=== PATIENT | female | born 1955 | race Caucasian/White ===

== ENCOUNTER 2023-01-27 16:09 | Inpatient (IN) | payer MEDICARE, OTHER, SELFPAY ==
[2023-01-27 16:20] VITALS: BP 136/71; PULSE 89; RESP 16; TEMP 36.9; O2SAT 98; BMI 22.8
--- NOTE | 2023-01-27 16:51 | ED_ITS ---
HPI - Abdominal Pain General Chief Complaint: Abdominal Pain Stated Complaint: Physician Referral Time Seen by Provider: 01/27/23 16:17 Source: patient Mode of arrival: Wheelchair Limitations: no limitations History of Present Illness HPI narrative: 67-year-old female presents for intermittent right lower quadrant abdominal pain. Sometimes it goes to her lower back. She 1st had it about two weeks ago but didn't have a recurrence of the until four days ago. It went away again and then it came back last night. She saw her nurse practitioner today who sent her here with a concern of appendicitis. No dysuria hematuria or trauma or fever. No vomiting constipation or diarrhea but she's been nauseous. The pain is moderate. Related Data Home Medications Medication Instructions Recorded Confirmed carbidopa 25 mg-levodopa 100 mg 1 tab PO .five times a day 01/27/23 01/27/23 tablet Allergies Allergy/AdvReac Type Severity Reaction Status Date / Time No Known Drug Allergies Allergy Verified 01/27/23 16:20 Review of Systems ROS Narrative A ten point review of systems is negative except as noted above. PFSH PFSH Social History Smoking status: Never smoker Exam Narrative Exam Narrative: Nurses note and vital signs reviewed and patient is not hypoxic. General: The patient appears well and in no apparent distress. Patient is resting comfortably on cart. Skin: Warm, dry, no pallor noted. There is no rash noted. Head: Normocephalic, atraumatic Eye: Normal conjunctiva, no drainage Ears, Nose, Mouth, and Throat: oral mucosa is moist. Nares patent. Cardiovascular: Regular Rate and Rhythm Respiratory: Patient is in no distress, no accessory muscle use, lungs are clear to auscultation, no wheezing, rales or rhonchi Back: non-tender, no CVA tenderness bilaterally to percussion. GI: mild tenderness on the right side of her abdomen without masses or distention Musculoskeletal: The patient has no evidence of calf tenderness, no pitting edema, symmetrical pulses noted bilaterally Neurological: A&O, normal speech Psychiatric: Cooperative Constitutional Vital Signs, click to edit/add: Last Vital Signs Temp 98.4 F 01/27/23 16:20 Pulse 89 01/27/23 16:20 Resp 16 01/27/23 16:20 BP 136/71 01/27/23 16:20 Pulse Ox 98 01/27/23 16:20 O2 Del Method Room Air 01/27/23 16:20 Course Vital Signs Vital signs: Vital Signs Temperature 98.4 F 01/27/23 16:20 Pulse Rate 89 01/27/23 16:20 Respiratory Rate 16 01/27/23 16:20 Blood Pressure 136/71 01/27/23 16:20 Pulse Oximetry 98 01/27/23 16:20 Oxygen Delivery Method Room Air 01/27/23 16:20 Temperature 98.4 F 01/27/23 16:20 Pulse Rate 89 01/27/23 16:20 Respiratory Rate 16 01/27/23 16:20 Blood Pressure 136/71 01/27/23 16:20 Pulse Oximetry 98 01/27/23 16:20 Oxygen Delivery Method Room Air 01/27/23 16:20 MDM - Abdominal Pain MDM Narrative Medical decision making narrative: CT scan is pending and the patient is signed out to Dr. Ornelas. Lab Data Attestation: I reviewed the patient's lab results. Labs: Lab Results 01/27/23 Range/Units 17:16 WBC 7.8 (4.0-11.0) 10^3/uL RBC 4.52 (4.20-5.40) 10^6/uL Hgb 13.6 (12.0-16.0) g/dL Hct 40.9 (36.0-48.0) % MCV 90.5 (81.0-99.0) fL MCH 30.1 (26.7-34.0) pg MCHC 33.3 (29.9-35.2) g/dL RDW 12.3 (11.0-15.0) % Plt Count 237 (150-450) 10^3/uL MPV 8.5 L (9.5-13.5) fL Neut % (Auto) 86.7 H (43.0-75.0) % Lymph % (Auto) 6.1 L (20.5-60.0) % [place] % (Auto) 6.1 (1.7-12.0) % Eos % (Auto) 0.4 L (0.9-7.0) % Baso % (Auto) 0.4 (0.2-2.0) % Neut # (Auto) 6.8 H (1.4-6.5) 10^3/uL Lymph # (Auto) 0.5 L (1.2-3.8) 10^3/uL [place] # (Auto) 0.5 (0.3-0.8) 10^3/uL Eos # (Auto) 0.0 (0.0-0.7) 10^3/uL Baso # (Auto) 0.0 (0.0-0.1) 10^3/uL Abs Immat Gran (auto) 0.02 (0.00-0.03) 10^3/uL Imm/Tot Granulo (auto) 0.3 (0.0-0.5) % Sodium 138 (136-145) mmol/L Potassium 4.1 (3.5-5.1) mmol/L Chloride 101 (98-107) mmol/L Carbon Dioxide 27.6 (21.0-32.0) mmol/L Anion Gap 13.5 BUN 20.0 H (7.0-18.0) mg/dL Creatinine 1.13 H (0.55-1.02) mg/dL Est GFR ( Amer) 58 L (>=60) Est GFR (Non-Af Amer) 48 L (>=60) BUN/Creatinine Ratio 17.7 Glucose 121 H (74-106) mg/dL Calcium 9.3 (8.5-10.1) mg/dL Urine Color Yellow (YELLOW) Urine Clarity Slightly cloudy A (CLEAR) Urine pH 7.0 (5.0-9.0) Ur Specific [place] 1.020 (1.005-1.025) Urine Protein Negative (NEG/TRACE) mg/dL Urine Glucose (UA) Negative (NEGATIVE) mg/dL Urine Ketones Trace A (NEGATIVE) mg/dL Urine Occult Blood Small A (NEGATIVE) Urine Nitrite Negative (NEGATIVE) Urine Bilirubin Negative (NEGATIVE) Urine Urobilinogen 0.2 (0.2-1.0) EU/dL Ur Leukocyte Esterase Negative (NEGATIVE) Urine RBC 5-10 A (0-2) #/HPF Urine WBC None seen (NONE SEEN) #/HPF Ur Squamous Epith Cells Rare (NONE/RARE) #/LPF Urine Crystals None seen (None Seen) #/HPF Amorphous Sediment Few Urine Bacteria None seen (NONE SEEN) #/HPF Urine Casts None seen (NONE SEEN) #/LPF Urine Mucus None seen (NONE SEEN) Ur Culture Indicated? No Discharge Plan Discharge Chief Complaint: Abdominal Pain Clinical Impression: Abdominal pain Patient Disposition: Still a Patient Prescriptions / Home Meds: No Action carbidopa-levodopa 25-100 mg tablet 1 tab PO .five times a day Referrals: ELLY SUNSHINE [Primary Care Provider] - 1 week
[2023-01-27 17:32] LABS: Basophils Percent Auto 0.4 % (0.2-2.0); Eosinophils Percent Auto 0.4 % (0.9-7.0); Hematocrit 40.9 % (36.0-48.0); Hemoglobin 13.6 g/dL (12.0-16.0); Immature Granulocytes Abs Auto 0.02 10^3/uL (0.00-0.03); Immature Granulocytes Pct Auto 0.3 % (0.0-0.5); Lymphocytes Absolute Auto 0.5 10^3/uL (1.2-3.8); Lymphocytes Percent Auto 6.1 % (20.5-60.0); Mean Corpuscular HGB Conc 33.3 g/dL (29.9-35.2); Mean Corpuscular Hemoglobin 30.1 pg (26.7-34.0); Mean Corpuscular Volume 90.5 fL (81.0-99.0); Mean Platelet Volume 8.5 fL (9.5-13.5); Monocytes Absolute Auto 0.5 10^3/uL (0.3-0.8); Monocytes Percent Auto 6.1 % (1.7-12.0); Neutrophils Absolute Auto 6.8 10^3/uL (1.4-6.5); Neutrophils Percent Auto 86.7 % (43.0-75.0); Platelet Count 237 10^3/uL (150-450); Red Blood Count 4.52 10^6/uL (4.20-5.40); Red Cell Distribution Width 12.3 % (11.0-15.0); White Blood Count 7.8 10^3/uL (4.0-11.0)
[2023-01-27 17:33] LABS: Anion Gap 13.5; BUN Creatinine Ratio 17.7; Calcium 9.3 mg/dL (8.5-10.1); Carbon Dioxide 27.6 mmol/L (21.0-32.0); Chloride 101 mmol/L (98-107); Estimated GFR (African America 58 (>=60); Estimated GFR (Non-African Ame 48 (>=60); Glucose 121 mg/dL (74-106); Potassium 4.1 mmol/L (3.5-5.1); Sodium 138 mmol/L (136-145)
[2023-01-27 17:48] LABS: Bilirubin Urine NEGATIVE (NEGATIVE); Blood Urine SMALL (NEGATIVE); Color Urine YELLOW (YELLOW); Glucose Urine UA NEGATIVE (NEGATIVE); Ketones Urine TRACE mg/dL (NEGATIVE); Leukocyte Esterase Urine NEGATIVE (NEGATIVE); Nitrite Urine NEGATIVE (NEGATIVE); Protein Urine NEGATIVE (NEG/TRACE); Urobilinogen Urine 0.2 EU/dL (0.2-1.0)
[2023-01-27 17:58] LABS: Bacteria Urine NONE SEEN #/HPF (NONE SEEN); Clarity Urine SLIGHTLY CLOUDY (CLEAR); Crystals Seen? None Seen #/HPF (None Seen); Mucus Urine NONE SEEN (NONE SEEN); Squamous Epithelial Cell Urine RARE #/LPF (NONE/RARE); WBC Urine NONE SEEN #/HPF (NONE SEEN)
[2023-01-27 17:59] LABS: Amorphous Sediment Urine FEW; Cast Seen? NONE SEEN #/LPF (NONE SEEN); Urine Culture Indicated NO
[2023-01-27] MEDS: MORPHINE SULFATE 2 MG/ML SYRINGE IV (18:04)
--- NOTE | 2023-01-27 18:25 | CT_ITS ---
[address] [address] Patient Name: ARMANDO MÁRQUEZ MRN: [id number] date: 1955 Sex: F Assigned Patient Location: ER Current Patient Location: .[facility] Accession/Order Number: [id number] Exam Date: 01/27/2023 18:19 Report Date: 01/27/2023 19:39 At the request of: CHARLI PARMAR Procedure: CT abdomen pelvis wo con EXAMINATION: CT abdomen pelvis wo con, 01/27/2023 6:19 PM EDT HISTORY: Right-sided pain, rule out kidney stone COMPARISON: None. TECHNIQUE: CT scan of the abdomen and pelvis was performed without IV contrast. CT dose reduction technique was used, including Automated Exposure Control. FINDINGS: LOWER CHEST: There is bibasilar subsegmental atelectasis. Small pericardial effusion. Small hiatal hernia. LIVER: Unremarkable. GALLBLADDER AND BILIARY SYSTEM: Unremarkable. SPLEEN: Unremarkable. PANCREAS: Unremarkable. ADRENAL GLANDS: Unremarkable. KIDNEYS AND URETERS: There is a 3 mm calculus in the distal right ureter resulting in moderate right-sided hydroureteronephrosis and extensive right-sided perinephric stranding. Punctate nonobstructing calculus in the midpole the right kidney. Punctate nonobstructing calculus in the mid to upper pole the right kidney. Left renal parapelvic cysts. BLADDER: Under distended. GASTROINTESTINAL TRACT: There is sigmoid diverticulosis without evidence of diverticulitis. Normal appendix. VASCULATURE: The abdominal aorta is normal in caliber. RETROPERITONEUM: No lymphadenopathy. PERITONEUM/MESENTERY: No abdominal ascites. No free air. PELVIS: No pelvic ascites or lymphadenopathy. BODY WALL: Unremarkable. BONES: Cement augmentation of T12. Grade 1 anterolisthesis of L4 and L5. Intramedullary cory and left hip screw noted in the left hip. Bony demineralization. CT/CT abdomen pelvis wo con IMPRESSION: 1. Obstructing 3 mm calculus in the distal right ureter resulting in moderate right-sided hydroureteronephrosis and extensive right-sided perinephric stranding. 2. Additional punctate nonobstructing calculi in the right kidney. 3. Small pericardial effusion. 4. Sigmoid diverticulosis without evidence of diverticulitis. 5. Small hiatal hernia. Electronically authenticated by: BARBARA AKHTAR Date: 01/27/2023 19:39
[2023-01-27] MEDS: CARBIDOPA/LEVODOPA 25 MG-100 MG TABLET 1 TAB PO (20:24)
[2023-01-27] MEDS: CIPROFLOXACIN IN 5 % DEXTROSE 400 MG/200 ML PIGGYBACK 200 MG IV (20:53)
[2023-01-27] MEDS: CARBIDOPA/LEVODOPA CR 25-100 MG TABLET 1 TAB PO (20:53)
[2023-01-27 21:31] VITALS: BP 110/70; PULSE 92; RESP 18; TEMP 36.9; O2SAT 97; BMI 23.3
[2023-01-28] VITALS (7 sets, daily range): BP systolic 82–144; BP diastolic 50–73; PULSE 90–98; RESP 16–20; TEMP 36.7–37.3; O2SAT 92–97
--- NOTE | 2023-01-28 01:05 | P.PN_ITS ---
Progress Note: Subjective Subjective Interval history: The patient is a 67-year-old female who apparently started having some abdominal discomfort approximately 2 weeks ago. She denies any dysuria. She had worsening pain today and presented to the ER. She denies any new medications or any sick contacts. She underwent routine CT which shows moderate right hydronephrosis and 3 mm kidney stone. She is being admitted for further evaluation. Exam Narrative Exam Narrative: General : Alert and oriented x3 HEENT : Extraocular movements intact, pupils equal round and reactive to light and accommodation Neck: Supple, no JVD Chest: Clear to auscultation bilaterally, no wheezes Heart: Regular rate and rhythm, S1 and S2 heard Abdomen: Soft nontender nondistended. Extremities: No clubbing cyanosis or edema Neurologically: Moving all 4 extremities Skin: No rashes Constitutional Vital Signs, click to edit/add: Last Vital Signs Temp 98.4 F 01/27/23 21:31 Pulse 92 H 01/27/23 21:31 Resp 18 01/27/23 21:31 BP 110/70 01/27/23 21:31 Pulse Ox 97 01/27/23 21:31 O2 Del Method Room Air 01/27/23 21:31 Progress Note: Objective Labs Labs: Short CBC 01/27/23 Range/Units 17:16 WBC 7.8 (4.0-11.0) 10^3/uL Hgb 13.6 (12.0-16.0) g/dL Hct 40.9 (36.0-48.0) % Plt Count 237 (150-450) 10^3/uL BMP 01/27/23 17:16 Sodium 138 Potassium 4.1 Chloride 101 Carbon Dioxide 27.6 BUN 20.0 H Creatinine 1.13 H Glucose 121 H Calcium 9.3 Urine 01/27/23 Range/Units 17:16 Urine Color Yellow (YELLOW) Urine Clarity Slightly cloudy A (CLEAR) Urine pH 7.0 (5.0-9.0) Ur Specific [place] 1.020 (1.005-1.025) Urine Protein Negative (NEG/TRACE) mg/dL Urine Glucose (UA) Negative (NEGATIVE) mg/dL Progress Note: A&P Assessment and Plan (1) Abdominal pain: (2) Hydronephrosis concurrent with and due to calculi of kidney and ureter: Plan The patient is a 67-year-old female with above medical problems, presenting with right hydronephrosis and pyelonephritis. Right-sided hydronephrosis with obstructing stone and pyelonephritis -Provide supportive care -Gentle IV fluids -Pain control -Empiric antibiotics with Rocephin - NPO after midnight -Urology consult for possible procedure in a.m. Parkinson's disease -Continue Sinemet DVT Prophylaxis - SCDs Medication review -Medication reconciliation form completed Goals of care -Full code Communications -Discussed with the emergency room physician -Discussed with the bedside nurse -Patient updated of plan of care, all questions answered to their satisfaction Disposition -Home when medically stable Telemedicine clause -As the provider of this telehealth evaluation, requested by the patient's evaluating physician, I attest that I introduced myself to the patient, provided my credentials and determined that telemedicine via a real-time, two-way interactive audio and video platform is an appropriate and effective means of providing this service. -I reviewed the patient's chart and had a discussion with the member of the patient's treatment team. -The patient and I mutually agreed with continuation of this evaluation via telemedicine. The patient consented for the telemedicine evaluation. -This virtual encounter was taken place from [place], [place]. The encounter was approximately 35 minutes. The nurse was present during the entire time of the encounter and was able to remove the stethoscope and appropriate directions. The patient was evaluated at [facility] Telemedicine Attestation Telemedicine Attestation I conducted this encounter from [] via secure live, [id number] video conference with the patient, located at [facility] with []. Prior to the interview, the risks and benefits of telemedicine were discussed with the patient and verbal consent was obtained.
[2023-01-28] MEDS: CEFTRIAXONE 1,000 MG in 0.9 % SODIUM CHLORIDE 50 ML 100 MG IV (01:28)
[2023-01-28] MEDS: DEXTROSE 5 %-0.45 % SOD CHLORD 1,000 ML 100 ML IV ×3 (01:31→23:14)
[2023-01-28] MEDS: TIMOLOL MALEATE 0.5% OP SOL 100 DROPS/5 ML BOTTLE 1 DROP OP (01:53)
[2023-01-28] MEDS: LIDOCAINE 5% PATCH 1 PATCH TOPICAL (01:56)
[2023-01-28] MEDS: ACETAMINOPHEN 325 MG TABLET 650 MG PO (03:43)
[2023-01-28] MEDS: GABAPENTIN 400 MG CAPSULE PO ×3 (05:15→21:17)
--- NOTE | 2023-01-28 08:37 | CM.NOTE ---
Rounds made with Dr. Gamboa, awaiting urology consult for plan of care.
--- NOTE | 2023-01-28 09:08 | P.HP_ITS ---
H&P: HPI History of Present Illness Chief complaint: Physician Referral MODERATE HYDRONEPHROSIS KIDNEY Narrative: Patient was seen and evaluated by her PCP for right-sided abdominal pain. Concern for acute appendicitis so presented to the emergency room. In the emergency room CT scan confirmed no appendicitis but right hydronephrosis secondary to right 3 mm stone with perinephric stranding consistent with acute pyelonephritis. With the significant hydronephrosis and lower blood pressure patient is admitted for work-up and treatment of same Review of Systems ROS Status of ROS 10 or more systems reviewed and unremarkable except as noted in history and below PFSH PFSH Medical History Surgical History Family History Brother Family history of cancer Grandmother Family history of hypertension Family history of stroke Social History Within the past year, how often did you have a drink containing alcohol: never Score interpretation: A score less than 3 is consistent with normal alcohol consumption. Smoking status: Never smoker Non-prescribed substance use: denies use Previous occupational history: retired Known occupational exposures/hazards: No Highest level of school completed/degree received: high school graduate Are you now , , , , never or living with a partner: In a typical week, how many times do you talk on the telephone with family, friends, or neighbors: twice per week How often do you get together with friends or relatives: never How often do you attend jainism or latter day services: never Do you belong to any clubs or organizations such as jainism groups unions, fraternal or athletic groups, or school groups: yes Total score: 2 Score interpretation: A score of greater than or equal to 2 indicates the lowest level of social isolation. Little interest or pleasure in doing things: nearly every day Feeling down, depressed, or hopeless: not at all Feel stressed/tense/nervous/anxious/difficulty sleeping: not at all Life stressors: other Life stressor details: prefer not to say Do you think of yourself as: straight/heterosexual Gender Identity: female Meds Home Medications and Allergies Home Medications Medication Instructions Recorded Confirmed Type bisacodyl 10 mg rectal suppository 10 mg GA DAILY constipation 01/27/23 01/27/23 History (Laxative (bisacodyl)) brimonidine 0.2 % eye drops 1 drp ophthalmic (eye) BID 01/27/23 01/27/23 History calcium carbonate 500 mg calcium 500 mg PO DAILY dyspepsia 01/27/23 01/27/23 History (1,250 mg) chewable tablet (Calcium 500) carbidopa 25 mg-levodopa 100 mg 1 tab PO .five times a day 01/27/23 01/27/23 History tablet carbidopa ER 25 mg-levodopa 100 mg 1 tab PO .COMPLEX 01/27/23 01/27/23 History tablet,extended release famotidine 20 mg tablet 20 mg PO DAILY 01/27/23 01/27/23 History gabapentin 400 mg capsule 400 mg PO TID 01/27/23 01/27/23 History immodium diarrhea 01/27/23 History lorazepam 0.5 mg tablet 0.25 mg PO Q8H PRN anxiety 01/27/23 01/27/23 History magnesium 200 mg tablet 400 mg PO DAILY 01/27/23 01/27/23 History melatonin 5 mg tablet 5 mg PO DAILY 01/27/23 01/27/23 History mirtazapine 15 mg tablet 15 mg PO DAILY 01/27/23 01/27/23 History omeprazole 40 mg capsule,delayed 40 mg PO DAILY 01/27/23 01/27/23 History release sertraline 100 mg tablet 100 mg PO Q24H 01/27/23 01/27/23 History timolol maleate 0.5 % eye drops 1 drp ophthalmic (eye) Q12H 01/27/23 01/27/23 History Allergies Allergy/AdvReac Type Severity Reaction Status Date / Time No Known Drug Allergies Allergy Verified 01/27/23 16:20 Exam Constitutional Vital Signs, click to edit/add: Last Vital Signs Temp 99 F 01/28/23 05:57 Pulse 93 H 01/28/23 05:57 Resp 18 01/28/23 05:57 BP 95/60 01/28/23 05:57 Pulse Ox 92 L 01/28/23 05:57 O2 Del Method Room Air 01/28/23 05:57 Documenting provider has reviewed patient's vital signs: yes Common normals: no apparent distress HENPR Common normals: moist oral mucous membranes Chest Common normals: inspection of chest normal Respiratory Common normals: normal respiratory effort, no retractions and clear to auscultation bilaterally Cardio Common normals: regular rate, regular rhythm and no murmurs GI Palpation: soft and tender (R Lower quadrant with no CVA tenderness) Results Labs Labs: Short CBC 01/27/23 Range/Units 17:16 WBC 7.8 (4.0-11.0) 10^3/uL Hgb 13.6 (12.0-16.0) g/dL Hct 40.9 (36.0-48.0) % Plt Count 237 (150-450) 10^3/uL BMP 01/27/23 17:16 Sodium 138 Potassium 4.1 Chloride 101 Carbon Dioxide 27.6 BUN 20.0 H Creatinine 1.13 H Glucose 121 H Calcium 9.3 Urine 01/27/23 Range/Units 17:16 Urine Color Yellow (YELLOW) Urine Clarity Slightly cloudy A (CLEAR) Urine pH 7.0 (5.0-9.0) Ur Specific [place] 1.020 (1.005-1.025) Urine Protein Negative (NEG/TRACE) mg/dL Urine Glucose (UA) Negative (NEGATIVE) mg/dL Assessment and Plan Assessment and Plan (1) Hydronephrosis concurrent with and due to calculi of kidney and ureter: (2) Abdominal pain: Plan Hypotension, acute kidney injury secondary to right hydronephrosis secondary to right 3 mm kidney stone with perinephric standing consistent with right pyelonephritis. Maintain current antibiotics, consultation to urology, start Flomax, n.p.o. until plan from Urology: Parkinson's disease-maintain current medications-stable GERD - cont with meds Depressin 0- cont with himanshu meds maintain observation status-possible discharge later today depending on outcome of kidney stone and pyelonephritis and plan from urology
[2023-01-28 09:47] LABS: Basophils Percent Auto 0.1 % (0.2-2.0); Eosinophils Percent Auto 0.4 % (0.9-7.0); Hematocrit 37.5 % (36.0-48.0); Hemoglobin 12.1 g/dL (12.0-16.0); Immature Granulocytes Abs Auto 0.02 10^3/uL (0.00-0.03); Immature Granulocytes Pct Auto 0.3 % (0.0-0.5); Lymphocytes Absolute Auto 0.6 10^3/uL (1.2-3.8); Lymphocytes Percent Auto 8.8 % (20.5-60.0); Mean Corpuscular HGB Conc 32.3 g/dL (29.9-35.2); Mean Corpuscular Hemoglobin 29.5 pg (26.7-34.0); Mean Corpuscular Volume 91.5 fL (81.0-99.0); Mean Platelet Volume 8.6 fL (9.5-13.5); Monocytes Absolute Auto 0.9 10^3/uL (0.3-0.8); Monocytes Percent Auto 13.1 % (1.7-12.0); Neutrophils Absolute Auto 5.4 10^3/uL (1.4-6.5); Neutrophils Percent Auto 77.3 % (43.0-75.0); Platelet Count 186 10^3/uL (150-450); Red Cell Distribution Width 12.3 % (11.0-15.0)
[2023-01-28] MEDS: SERTRALINE HCL 100 MG TABLET PO (09:57)
[2023-01-28] MEDS: MIRTAZAPINE 15 MG TABLET PO (09:57)
[2023-01-28] MEDS: MAGNESIUM OXIDE 400 MG TABLET PO (09:57)
[2023-01-28] MEDS: OMEPRAZOLE 40 MG CAPSULE.DR PO (09:57)
[2023-01-28] MEDS: TAMSULOSIN HCL 0.4 MG CAPSULE PO (09:57)
[2023-01-28] MEDS: FAMOTIDINE 20 MG TABLET PO (09:57)
[2023-01-28] MEDS: KETOROLAC TROMETHAMINE 30 MG/ML VIAL IVP (10:21)
[2023-01-28] MEDS: CARBIDOPA/LEVODOPA CR 25-100 MG TABLET 1 TAB PO ×4 (11:32→21:17)
[2023-01-28] MEDS: CARBIDOPA/LEVODOPA 25 MG-100 MG TABLET 1 TAB PO ×4 (11:32→21:17)
--- NOTE | 2023-01-28 11:47 | SWNOTE1 ---
SW met with pt to discuss any dc needs. Pt does live at [facility]. Pt was sleeping when SW came in but was able to wake up to answer a few questions. She is not sure how long she has been there. She does plan on returning at discharge and does like it there. Pt does not voice any concerns or dc needs. SW did call [facility] and sent over updates.
[2023-01-28] MEDS: 0.9 % SODIUM CHLORIDE 1,000 ML 500 ML IV (18:27)
[2023-01-28] MEDS: LORAZEPAM 0.5 MG TABLET PO (21:17)
[2023-01-28] MEDS: TIMOLOL MALEATE 0.5% OP SOL 100 DROPS/5 ML BOTTLE 2 DROP OP (21:18)
[2023-01-29] MEDS: LIDOCAINE 5% PATCH 1 PATCH TOPICAL (00:35)
[2023-01-29] MEDS: CEFTRIAXONE 1,000 MG in 0.9 % SODIUM CHLORIDE 50 ML 100 MG IV (00:35)
--- NOTE | 2023-01-29 03:34 | PC.NURSE ---
Iv restart attempted times 3 tries. 1st attempt to left hand with #22 guage catheter without success. 2x2 dressing applied to site. 2nd attempt to left wrist with # 22 guage catheter, without success. 2x2 dressing applied to site. 3rd attempt to right hand successful. #22 guage catheter used. Blood return observed, flushes easily. Iv site secured with obsite dressing and tape.
[2023-01-29] MEDS: GABAPENTIN 400 MG CAPSULE PO ×3 (05:22→21:05)
[2023-01-29] MEDS: CARBIDOPA/LEVODOPA 25 MG-100 MG TABLET 1 TAB PO ×5 (05:22→21:05)
[2023-01-29] MEDS: CARBIDOPA/LEVODOPA CR 25-100 MG TABLET 1 TAB PO ×5 (05:22→21:05)
[2023-01-29 05:24] VITALS: BP 103/65; PULSE 96; RESP 20; TEMP 36.8; O2SAT 91
[2023-01-29 05:43] LABS: Anion Gap 10.4; BUN Creatinine Ratio 19.4; Calcium 8.1 mg/dL (8.5-10.1); Carbon Dioxide 23.2 mmol/L (21.0-32.0); Chloride 105 mmol/L (98-107); Estimated GFR (African America >60 (>=60); Estimated GFR (Non-African Ame 60 (>=60); Glucose 137 mg/dL (74-106); Potassium 3.6 mmol/L (3.5-5.1); Sodium 135 mmol/L (136-145)
[2023-01-29 06:05] LABS: Basophils Percent Auto 0.2 % (0.2-2.0); Hematocrit 33.6 % (36.0-48.0); Immature Granulocytes Abs Auto 0.02 10^3/uL (0.00-0.03); Immature Granulocytes Pct Auto 0.2 % (0.0-0.5); Lymphocytes Absolute Auto 0.4 10^3/uL (1.2-3.8); Lymphocytes Percent Auto 4.3 % (20.5-60.0); Mean Corpuscular HGB Conc 32.7 g/dL (29.9-35.2); Mean Corpuscular Hemoglobin 30.5 pg (26.7-34.0); Mean Corpuscular Volume 93.1 fL (81.0-99.0); Mean Platelet Volume 8.4 fL (9.5-13.5); Monocytes Absolute Auto 0.9 10^3/uL (0.3-0.8); Monocytes Percent Auto 8.7 % (1.7-12.0); Neutrophils Absolute Auto 8.9 10^3/uL (1.4-6.5); Neutrophils Percent Auto 86.6 % (43.0-75.0); Platelet Count 152 10^3/uL (150-450); Red Blood Count 3.61 10^6/uL (4.20-5.40); Red Cell Distribution Width 12.2 % (11.0-15.0); White Blood Count 10.2 10^3/uL (4.0-11.0)
--- NOTE | 2023-01-29 08:14 | CT_ITS ---
[address] [address] Patient Name: ARMANDO MÁRQUEZ MRN: [id number] date: 1955 Sex: F Assigned Patient Location: MS Current Patient Location: Accession/Order Number: [id number] Exam Date: 01/29/2023 09:00 Report Date: 01/29/2023 09:35 At the request of: SANTANA OLIVA Procedure: CT abdomen pelvis wo con EXAMINATION: CT abdomen pelvis wo con HISTORY: follow up hydronephrosis COMPARISON: 01/27/2023 TECHNIQUE: Axial, Coronal, and Sagittal images were created without IV contrast. Dose reduction techniques were achieved by using automated exposure control and/or adjustment of mA and/or kV according to patient size and/or use of iterative reconstruction technique. FINDINGS: LUNG BASES: Small pericardial effusion measuring up to 8 mm. Small bilateral pleural effusions, subcentimeter. Mild bibasilar opacities, atelectasis is favored LIVER: No enlargement, atrophy, abnormal density, or significant focal lesion. BILIARY: No dilatation or calcification. PANCREAS: No lesion, fluid collection, ductal dilatation, or atrophy. SPLEEN: No enlargement or focal lesion. ADRENALS: No mass or enlargement. KIDNEYS: 4 mm stone right ureterovesical junction axial image 123. There is marked asymmetric enlargement of the right kidney with moderate perinephric stranding and moderate right hydronephrosis. There is thickening of the renal pelvis with inflammatory changes, significantly progressed from the prior exam. The left kidney is normal. BOWEL/MESENTERY: Moderate colonic diverticulosis without evidence of acute diverticulitis. Nonobstructive bowel gas pattern. Normal appendix. AORTA/VASCULAR: No aortic aneurysm. Atherosclerosis. RETROPERITONEUM: No mass or adenopathy. LYMPH NODES: No adenopathy. URINARY BLADDER: No visible focal wall thickening, lesion, or calculus. PELVIC ORGANS: Hysterectomy ABDOMINAL WALL: No mass or hernia. BONES: No bony lesion or fracture. T12 wedge compression fracture with kyphoplasty. Remote internal fixation of a left intertrochanteric hip fracture OTHER: Negative. CT/CT abdomen pelvis wo con IMPRESSION: Significant progression of inflammatory changes of the right kidney with moderate hydronephrosis and 4 mm right ureterovesical junction stone. Consideration should be given to obstructive uropathy/pyelonephritis Small pericardial effusion Electronically authenticated by: LIZBETH RUSSELL Date: 01/29/2023 09:35
[2023-01-29] MEDS: MAGNESIUM OXIDE 400 MG TABLET PO (08:28)
[2023-01-29] MEDS: LORAZEPAM 0.5 MG TABLET PO ×2 (08:28→21:05)
[2023-01-29] MEDS: FAMOTIDINE 20 MG TABLET PO (08:28)
[2023-01-29] MEDS: CHOLECALCIFEROL (VITAMIN D3) 25 MCG/1,000 UNITS TABLET 50 MCG PO (08:28)
[2023-01-29] MEDS: SERTRALINE HCL 100 MG TABLET PO (08:28)
[2023-01-29] MEDS: TAMSULOSIN HCL 0.4 MG CAPSULE PO (08:28)
[2023-01-29] MEDS: DEXTROSE 5 %-0.45 % SOD CHLORD 1,000 ML 100 ML IV ×2 (08:29→19:33)
[2023-01-29] MEDS: TIMOLOL MALEATE 0.5% OP SOL 100 DROPS/5 ML BOTTLE 2 DROP OP ×2 (08:30→21:05)
--- NOTE | 2023-01-29 09:25 | CM.NOTE ---
Rounds made with Dr. Gamboa, possible discharge this afternoon, awaiting further testing.
--- NOTE | 2023-01-29 09:28 | P.DS_ITS ---
DS: Providers Provider Date of admission: 01/27/23 21:18 Primary care physician: ELLY SUNSHINE Consults: 01/28/23 00:24 Consult to Urology Routine Consulting Provider: Milton Reyes Reason for consultation: hydronephrosis DS: Diagnosis Discharge Diagnosis (1) Hydronephrosis concurrent with and due to calculi of kidney and ureter: (2) Abdominal pain: Plan Hypotension, acute kidney injury secondary to right hydronephrosis secondary to right 3 mm kidney stone with perinephric standing consistent with right pyelonephritis. Maintain current antibiotics, consultation to urology, start Flomax, n.p.o. until plan from Urology: Parkinson's disease-maintain current medications-stable GERD - cont with meds Depressin 0- cont with himanshu meds maintain observation status-possible discharge later today depending on outcome of kidney stone and pyelonephritis and plan from urology DS: Summary Time Spent with Patient Time attestation: Total time spent providing and/or coordinating discharge services: Exam Constitutional Vital Signs, click to edit/add: Last Vital Signs Temp 98.2 F 01/29/23 05:24 Pulse 96 H 01/29/23 05:24 Resp 20 01/29/23 05:24 BP 103/65 01/29/23 05:24 Pulse Ox 91 L 01/29/23 05:24 O2 Del Method Room Air 01/29/23 05:24 DS: Data Data Completed and Pending Labs on day of discharge: Labs from last 24 hours 01/29/23 01/28/23 04:55 09:30 WBC 10.2 7.0 RBC 3.61 L 4.10 L Hgb 11.0 L 12.1 Hct 33.6 L 37.5 MCV 93.1 91.5 MCH 30.5 29.5 MCHC 32.7 32.3 RDW 12.2 12.3 Plt Count 152 186 MPV 8.4 L 8.6 L Neut % (Auto) 86.6 H 77.3 H Lymph % (Auto) 4.[address] [place] % (Auto) 8.7 13.1 H Eos % (Auto) 0.0 L 0.4 L Baso % (Auto) 0.2 0.1 L Neut # (Auto) 8.9 H 5.4 Lymph # (Auto) 0.[address] [place] # (Auto) 0.9 H 0.9 H Eos # (Auto) 0.0 0.0 Baso # (Auto) 0.0 0.0 Abs Immat Gran (auto) 0.02 0.02 Imm/Tot Granulo (auto) 0.2 0.3 Sodium 135 L Potassium 3.6 Chloride 105 Carbon Dioxide 23.2 Anion Gap 10.4 BUN 18.0 Creatinine 0.93 Est GFR ( Amer) >60 Est GFR (Non-Af Amer) 60 BUN/Creatinine Ratio 19.4 Glucose 137 H Calcium 8.1 L Discharge Plan Discharge Condition: Good Discharge Medications: No Action carbidopa-levodopa 25-100 mg tablet 1 tab PO .five times a day Rx Instructions: 6 am, 10 am, 2 pm, 6 pm, and 10 pm carbidopa-levodopa 25-100 mg tablet extended release 1 tab PO .5x Rx Instructions: 0600,1000,1400,1800,2200 gabapentin 400 mg capsule 400 mg PO TID sertraline 100 mg tablet 100 mg PO DAILY omeprazole 40 mg capsule,delayed release(DR/EC) 40 mg PO BEDTIME famotidine 20 mg tablet 20 mg PO DAILY lorazepam 0.5 mg tablet 0.25 mg PO Q8H PRN (Reason: anxiety) Patient Comments: PRN brimonidine 0.2 % drops 2 drp OPHTHALMIC (EYE) BID mirtazapine 15 mg tablet 15 mg PO BEDTIME timolol maleate 0.5 % drops 2 drp OPHTHALMIC (EYE) BID melatonin 5 mg tablet 5 mg PO BEDTIME PRN (Reason: sleep) bisacodyl [Laxative (bisacodyl)] 10 mg suppository [address] DAILY PRN (Reason: constipation) calcium carbonate [Calcium 500] 500 mg calcium (1,250 mg) tablet,chewable 1,000 mg PO Q2H PRN (Reason: dyspepsia) magnesium 200 mg tablet 400 mg PO DAILY lorazepam [Ativan] 0.5 mg tablet 0.5 mg PO BID loperamide [Anti-Diarrheal (loperamide)] 2 mg capsule 2 mg PO Q6H PRN (Reason: loose stool) cholecalciferol (vitamin D3) 50 mcg (2,000 unit) capsule 50 mcg PO DAILY
--- NOTE | 2023-01-29 10:07 | P.PN_ITS ---
Progress Note: Subjective Subjective Interval history: She does feel she is better today but still with some persistent flank pain. Exam Constitutional Vital Signs, click to edit/add: Last Vital Signs Temp 98.2 F 01/29/23 05:24 Pulse 96 H 01/29/23 05:24 Resp 20 01/29/23 05:24 BP 103/65 01/29/23 05:24 Pulse Ox 91 L 01/29/23 05:24 O2 Del Method Room Air 01/29/23 05:24 Documenting provider has reviewed patient's vital signs: yes Common normals: no apparent distress HENMT Common normals: moist oral mucous membranes Chest Common normals: inspection of chest normal Respiratory Common normals: normal respiratory effort, no retractions and clear to auscultation bilaterally Cardio Common normals: regular rate, regular rhythm and no murmurs GI Palpation: soft and tender (R Lower quadrant with no CVA tenderness) Progress Note: Objective Labs Labs: Short CBC 01/29/23 Range/Units 04:55 WBC 10.2 (4.0-11.0) 10^3/uL Hgb 11.0 L (12.0-16.0) g/dL Hct 33.6 L (36.0-48.0) % Plt Count 152 (150-450) 10^3/uL BMP 01/29/23 04:55 Sodium 135 L Potassium 3.6 Chloride 105 Carbon Dioxide 23.2 BUN 18.0 Creatinine 0.93 Glucose 137 H Calcium 8.1 L Progress Note: A&P Assessment and Plan (1) Hydronephrosis concurrent with and due to calculi of kidney and ureter: (2) Abdominal pain: Plan Hypotension, acute kidney injury(better today) secondary to right hydronephrosis secondary to right 3-4 mm kidney stone with perinephric standing consistent with right pyelonephritis. Repeat CT scan shows progression of the inflammatory response. Still with significant hydronephrosis, consult to urology for today., Leukocytosis is better Iron deficiency anemia somewhat deteriorated, continue to monitor daily Parkinson's disease-maintain current medications-stable GERD - cont with meds Depression 0- cont with home meds With progression of the pyelonephritis, cultures pending, need for prolonged medical therapies we will change patient to inpatient status ?
--- NOTE | 2023-01-29 11:39 | SWNOTE1 ---
Updates sent to Pablo WALTER.
--- NOTE | 2023-01-29 14:32 | CM.NOTE ---
Medicare Outpatient Observation Notice discussed with pt in AM, pt verbalizes understanding and signs paper. Original given to pt and copy placed on pt's chart.
[2023-01-29 14:45] VITALS: BP 108/63; PULSE 98; RESP 16; TEMP 36.6; O2SAT 96
[2023-01-29 19:27] VITALS: RESP 16
[2023-01-29 20:00] VITALS: BP 112/66; PULSE 107; RESP 18; TEMP 36.9; O2SAT 96
[2023-01-29 20:53] VITALS: BP 107/74; PULSE 84; RESP 18; TEMP 36.8; O2SAT 94
[2023-01-29] MEDS: MIRTAZAPINE 15 MG TABLET PO (21:05)
[2023-01-29] MEDS: OMEPRAZOLE 40 MG CAPSULE.DR PO (21:05)
[2023-01-30] MEDS: CEFTRIAXONE 1,000 MG in 0.9 % SODIUM CHLORIDE 50 ML 100 MG IV (00:22)
[2023-01-30] MEDS: LIDOCAINE 5% PATCH 1 PATCH TOPICAL (00:25)
[2023-01-30] MEDS: LORAZEPAM 0.5 MG TABLET 0.25 MG PO (02:55)
[2023-01-30 05:15] LABS: Basophils Percent Auto 0.1 % (0.2-2.0); Eosinophils Percent Auto 0.4 % (0.9-7.0); Hematocrit 31.4 % (36.0-48.0); Hemoglobin 10.3 g/dL (12.0-16.0); Immature Granulocytes Abs Auto 0.03 10^3/uL (0.00-0.03); Immature Granulocytes Pct Auto 0.3 % (0.0-0.5); Lymphocytes Absolute Auto 0.5 10^3/uL (1.2-3.8); Lymphocytes Percent Auto 4.9 % (20.5-60.0); Mean Corpuscular HGB Conc 32.8 g/dL (29.9-35.2); Mean Corpuscular Hemoglobin 29.4 pg (26.7-34.0); Mean Corpuscular Volume 89.7 fL (81.0-99.0); Mean Platelet Volume 8.8 fL (9.5-13.5); Monocytes Absolute Auto 0.7 10^3/uL (0.3-0.8); Monocytes Percent Auto 7.3 % (1.7-12.0); Platelet Count 190 10^3/uL (150-450); Red Cell Distribution Width 12.3 % (11.0-15.0); White Blood Count 9.2 10^3/uL (4.0-11.0)
[2023-01-30] MEDS: GABAPENTIN 400 MG CAPSULE PO (05:39)
[2023-01-30] MEDS: CARBIDOPA/LEVODOPA CR 25-100 MG TABLET 1 TAB PO ×2 (05:39→11:36)
[2023-01-30] MEDS: CARBIDOPA/LEVODOPA 25 MG-100 MG TABLET 1 TAB PO ×2 (05:39→11:37)
[2023-01-30 05:40] LABS: Anion Gap 10.3; BUN Creatinine Ratio 10.1; Calcium 7.8 mg/dL (8.5-10.1); Carbon Dioxide 25.5 mmol/L (21.0-32.0); Chloride 108 mmol/L (98-107); Estimated GFR (African America >60 (>=60); Estimated GFR (Non-African Ame >60 (>=60); Glucose 133 mg/dL (74-106); Potassium 3.8 mmol/L (3.5-5.1); Sodium 140 mmol/L (136-145)
[2023-01-30 05:48] VITALS: BP 119/69; PULSE 100; RESP 18; TEMP 37.6; O2SAT 94
[2023-01-30] MEDS: DEXTROSE 5 %-0.45 % SOD CHLORD 1,000 ML 100 ML IV (06:25)
[2023-01-30] MEDS: CHOLECALCIFEROL (VITAMIN D3) 25 MCG/1,000 UNITS TABLET 50 MCG PO (10:35)
[2023-01-30] MEDS: MAGNESIUM OXIDE 400 MG TABLET PO (10:35)
[2023-01-30] MEDS: TAMSULOSIN HCL 0.4 MG CAPSULE PO (10:35)
[2023-01-30] MEDS: SERTRALINE HCL 100 MG TABLET PO (10:36)
[2023-01-30] MEDS: LORAZEPAM 0.5 MG TABLET PO (10:36)
[2023-01-30] MEDS: FAMOTIDINE 20 MG TABLET PO (10:36)
[2023-01-30] MEDS: TIMOLOL MALEATE 0.5% OP SOL 100 DROPS/5 ML BOTTLE 2 DROP OP (10:37)
--- NOTE | 2023-01-30 10:50 | P.DS_ITS ---
DS: Providers Provider Date of admission: 01/27/23 21:18 Primary care physician: ELLY SUNSHINE Consults: 01/28/23 00:24 Consult to Urology Routine Consulting Provider: Milton Reyes Reason for consultation: hydronephrosis DS: Diagnosis Discharge Diagnosis (1) Hydronephrosis concurrent with and due to calculi of kidney and ureter: (2) Abdominal pain: DS: Summary Hospital Course Hospital Course: Patient was admitted with right lower quadrant and right flank pain. Found to have 3 to 4 mm nephrolithiasis both creating moderate hydronephrosis. He was given IV fluids and Flomax. Consultation with urology recommended continued waiting since the size really should pass. It took until the last day of her admission for her pain to improve x-ray suggested stone bladder, patient be discharged home in improving condition. Medications see list. Follow-up with her PCP and urology within the next week. Time Spent with Patient Time attestation: Total time spent providing and/or coordinating discharge services: Exam Constitutional Vital Signs, click to edit/add: Last Vital Signs Temp 99.7 F 01/30/23 05:48 Pulse 100 H 01/30/23 05:48 Resp 18 01/30/23 05:48 BP 119/69 01/30/23 05:48 Pulse Ox 94 L 01/30/23 05:48 O2 Del Method Room Air 01/30/23 05:48 Documenting provider has reviewed patient's vital signs: yes Common normals: no apparent distress HENMT Common normals: moist oral mucous membranes Chest Common normals: inspection of chest normal Respiratory Common normals: normal respiratory effort, no retractions and clear to auscultation bilaterally Cardio Common normals: regular rate, regular rhythm and no murmurs GI Palpation: soft and tender (R Lower quadrant with no CVA tenderness-much improved) DS: Data Data Completed and Pending Labs on day of discharge: Labs from last 24 hours 01/30/23 04:43 WBC 9.2 RBC 3.50 L Hgb 10.3 L Hct 31.4 L MCV 89.7 MCH 29.4 MCHC 32.8 RDW 12.3 Plt Count 190 MPV 8.8 L Neut % (Auto) 87.0 H Lymph % (Auto) 4.9 L [place] % (Auto) 7.3 Eos % (Auto) 0.4 L Baso % (Auto) 0.1 L Neut # (Auto) 8.0 H Lymph # (Auto) 0.5 L [place] # (Auto) 0.7 Eos # (Auto) 0.0 Baso # (Auto) 0.0 Abs Immat Gran (auto) 0.03 Imm/Tot Granulo (auto) 0.3 Sodium 140 Potassium 3.8 Chloride 108 H Carbon Dioxide 25.5 Anion Gap 10.3 BUN 9.0 Creatinine 0.89 Est GFR ( Amer) >60 Est GFR (Non-Af Amer) >60 BUN/Creatinine Ratio 10.1 Glucose 133 H Calcium 7.8 L Discharge Plan Discharge Disposition: Home, Self-Care Condition: Good Discharge Medications: New tamsulosin [Flomax] 0.4 mg capsule 0.4 mg PO DAILY Qty: 10 0RF cefdinir 300 mg capsule 600 mg PO DAILY 10 Days Qty: 20 0RF Continued carbidopa-levodopa 25-100 mg tablet 1 tab PO .five times a day Rx Instructions: 6 am, 10 am, 2 pm, 6 pm, and 10 pm carbidopa-levodopa 25-100 mg tablet extended release 1 tab PO .5x Rx Instructions: 0600,1000,1400,1800,2200 gabapentin 400 mg capsule 400 mg PO TID sertraline 100 mg tablet 100 mg PO DAILY omeprazole 40 mg capsule,delayed release(DR/EC) 40 mg PO BEDTIME famotidine 20 mg tablet 20 mg PO DAILY lorazepam 0.5 mg tablet 0.25 mg PO Q8H PRN (Reason: anxiety) Patient Comments: PRN brimonidine 0.2 % drops 2 drp OPHTHALMIC (EYE) BID mirtazapine 15 mg tablet 15 mg PO BEDTIME timolol maleate 0.5 % drops 2 drp OPHTHALMIC (EYE) BID melatonin 5 mg tablet 5 mg PO BEDTIME PRN (Reason: sleep) bisacodyl [Laxative (bisacodyl)] 10 mg suppository 10 mg VT DAILY PRN (Reason: constipation) calcium carbonate [Calcium 500] 500 mg calcium (1,250 mg) tablet,chewable 1,000 mg PO Q2H PRN (Reason: dyspepsia) magnesium 200 mg tablet 400 mg PO DAILY lorazepam [Ativan] 0.5 mg tablet 0.5 mg PO BID loperamide [Anti-Diarrheal (loperamide)] 2 mg capsule 2 mg PO Q6H PRN (Reason: loose stool) cholecalciferol (vitamin D3) 50 mcg (2,000 unit) capsule 50 mcg PO DAILY Patient Instructions: Hydronephrosis (GEN) Forms: Portal Instructions Follow Up Appointments: Follow up with dr. Chauhan in week. Discharge Date/Time: 01/30/23 12:50
--- NOTE | 2023-01-30 13:00 | PC.NURSE ---
Report called to Faye at [facility] in [place]
--- NOTE | 2023-02-01 14:11 | CM.DCFOLLOWU ---
Person spoke with: patient How are you feeling? better How is your pain? no pain Did you understand your discharge instructions? yes Do you have any questions about your discharge instructions? no Were you given any prescriptions at discharge? yes Were you able to get your prescriptions filled? yes Do you understand how to take your medications as ordered? yes Do you have any questions about your follow up appointment and do you plan to keep your follow up appointment? no questions, still needs to schedule follow up. She was not aware she needed to and voiced she was out of it when discharged. Is there anything else that you would like to discuss? no Questions/Comments/Concerns/Other:
== END 2023-01-30 12:50 | disposition home or self-care (01) | DRG 690 ==
LOC: ER 20:37 → MS 21:26
PROVIDERS: Admitting Provider Internal Medicine; Emergency Provider Emergency Medicine; PCP Family Medicine; Visit Provider Family Medicine
DX: N13.6 Pyonephrosis (principal); N17.9 Acute kidney failure, unspecified; D50.9 Iron deficiency anemia, unspecified; G20 Parkinson's disease; K21.9 Gastro-esophageal reflux disease without esophagitis; F32.A Depression, unspecified; Z79.899 Other long term (current) drug therapy
CPT/HCPCS: 36415; 74176; 80048; 81001; 85025; 96361; 96365; 96366; 96367; 96375; 99285; Q3014

== ENCOUNTER 2023-05-03 | Outpatient (REF) | payer MEDICARE, OTHER, SELFPAY ==
[2023-05-04 13:52] LABS: Bilirubin Urine NEGATIVE (NEGATIVE); Blood Urine NEGATIVE (NEGATIVE); Clarity Urine CLEAR (CLEAR); Color Urine LT. YELLOW (YELLOW); Glucose Urine UA NEGATIVE (NEGATIVE); Ketones Urine NEGATIVE (NEGATIVE); Leukocyte Esterase Urine NEGATIVE (NEGATIVE); Nitrite Urine NEGATIVE (NEGATIVE); Protein Urine NEGATIVE (NEG/TRACE); Urobilinogen Urine 0.2 EU/dL (0.2-1.0)
== END 2023-05-03 00:01 | disposition home or self-care (01) ==
LOC: LAB
PROVIDERS: PCP Family Medicine; Visit Provider Family Medicine
DX: N39.0 Urinary tract infection, site not specified (principal)
CPT/HCPCS: 81003; 87086; 87150; 87186

== ENCOUNTER 2023-05-27 11:37 | Outpatient (REF) | payer MEDICARE, OTHER, SELFPAY ==
--- OUTSIDE RECORDS SUMMARY | 2023-05-27 11:41 | XMS_ITS | CCD ---
Author Name Unknown Address [address] [facility] [address] [place] [address] Organization [facility] Care Team Providers Care Yarn Mercerizer Operator Name Role Phone DIANNENING, RICARDO Aceves Unavailable Unavailable FANPHI, RICARDO Aceves Unavailable Unavailable PAY ., DR DAVID Admitting Unavailable PAY ., DR DAVID Attending Unavailable BITA, DR SANABRIA Primary Care Unavailable PAY ., DR DAVID Consulting Unavailable GRECHNY ., SALLY CARABALLO Consulting UnavailDIVINA Abel Attending Unavailable DIVINA PROCTOR Attending Unavailable SHASHI SERVIN Attending UnavailMOHIT Chambers Attending Unavailable Allergies Allergy Classification Reported Allergen(s) Allergy Type Date of Onset Reaction(s) Facility (1 source) buPROPion Drug Allergy 08-26-[address] 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) drug therapy; Translations: [OTH PRISON CURRENT DRUG THERAPY] Onset: 08-31-2022 Episodic Parkinson`s disease (1 source) Parkinson's disease; Translations: [PARKINSONS DISEASE] Onset: 08-31-2022 Chronic Unclassified (1 source) Unknown / UNK(Unknown) Onset: 02-04-2017 Unclassified (1 source) CONTACT W/AND (SUSP) EXPOS COVID-19; Translations: [CONTACT W/AND (SUSP) EXPOS COVID-19] Onset: 08-31-2022 Results Test Name Value Interpretation Reference Range Facility ACETAMINOPHENon 08-26-2022 Acetaminophen [Mass/Vol] ug/mL Critically low 10.0-30.0 [facility] Comment on above: Performed By: #### S ALYC, ETH, ACET, CMP, TSH #### [facility] [address] [place] [address] Dr. Harris Perdomo CBC AUTO DIFFon 08-26-2022 BASO # 0.0 103/ul Normal 0.0-0.1 [facility] Comment on above: Performed By: #### C BC #### [facility] [address] [place] [address] Dr. Harris Perdomo Basophils/100 WBC (Bld) 0.4 % Normal 0.2-2.0 [facility] Comment on above: Performed By: #### C BC #### [facility] [address] [place] [address] Dr. Harris Perdomo EO # 0.0 103/ul Normal 0.0-0.7 [facility] Comment on above: Performed By: #### C BC #### [facility] [address] [place] [address] Dr. Harris Perdomo Eosinophils/100 WBC (Bld) 0.2 % Critically low 0.9-7.0 [facility] Comment on above: Performed By: #### C BC #### [facility] [address] [place] [address] Dr. Harris Perdomo Erythrocyte distribution width (RBC) [Ratio] 12.1 % Normal 11.0-15.0 [facility] Comment on above: Performed By: #### C BC #### [facility] [address] [place] [address] Dr. Harris Perdomo Hematocrit (Bld) [Volume fraction] 39.3 % Normal 36.0-48.0 [facility] Comment on above: Performed By: #### C BC #### [facility] [address] [place] [address] Dr. Harris Perdomo Hemoglobin (Bld) [Mass/Vol] 13.3 g/dL Normal 12.0-16.0 [facility] Comment on above: Performed By: #### C BC #### [facility] [address] [address] [address] Harris Perdomo IG # 0.00 10e3/ul Normal 0.00-0.03 [facility] Comment on above: Performed By: #### C BC #### [facility] [address] [address] [address] Harris Perdomo IG % 0.0 % Normal 0.0-0.5 [facility] Comment on above: Performed By: #### C BC #### [facility] [address] [place] [address] Dr. Harris Perdomo LYMPH # 0.5 103/ul Critically low 1.2-3.[address] [facility] Comment on above: Performed By: #### C BC #### [facility] [address] [place] [address] Dr. Harris Perdomo Lymphocytes/100 WBC (Bld) 10.2 % Critically low 20.5-60.0 [facility] Comment on above: Performed By: #### C BC #### [facility] [address] [place] [address] Dr. Harris Perdomo MANUAL DIFF REQ NO Normal [facility] Comment on above: Performed By: #### C BC #### [facility] [address] [place] [address] Dr. Harris Perdomo MCH (RBC) [Entitic mass] 30.6 pg Normal 26.7-34.0 [facility] Comment on above: Performed By: #### C BC #### [facility] [address] [place] [address] Dr. Harris Perdomo MCHC (RBC) [Mass/Vol] 33.8 g/dL Normal 29.9-35.[address] [facility] Comment on above: Performed By: #### C BC #### [facility] [address] [place] [address] Dr. Harris Perdomo MCV (RBC) [Entitic vol] 90.6 fL Normal 81.0-99.0 [facility] Comment on above: Performed By: #### C BC #### [facility] [address] [address] [address] Harris Perdomo MONO # 0.3 103/ul Normal 0.3-0.8 [facility] Comment on above: Performed By: #### C BC #### [facility] [address] [place] [address] Dr. Harris Perdomo Monocytes/100 WBC (Bld) 6.2 % Normal 1.7-12.0 [facility] Comment on above: Performed By: #### C BC #### [facility] [address] [place] [address] Dr. Harris Perdomo NEUT # 4.3 103/ul Normal 1.4-6.5 [facility] Comment on above: Performed By: #### C BC #### [facility] [address] [place] [address] Dr. Harris Perdomo Neutrophils/100 WBC (Bld) 83.0 % Critically high 43.0-75.0 [facility] Comment on above: Performed By: #### C BC #### [facility] [address] [place] [address] Dr. Harris Perdomo Platelet mean volume (Bld) [Entitic vol] 8.3 fL Critically low 9.5-13.[address] [facility] Comment on above: Performed By: #### C BC #### [facility] [address] [place] [address] Dr. Harris Perdomo PLT 251 103/ul Normal 150-[address] [facility] Comment on above: Performed By: #### C BC #### [facility] [address] [place] [address] Dr. Harris Perdomo RBC 4.34 106/ul Normal 4.20-5.[address] [facility] Comment on above: Performed By: #### C BC #### [facility] [address] [place] [address] Dr. Harris Perdomo WBC 5.2 103/ul Normal 4.0-11.0 [facility] Comment on above: Performed By: #### C BC #### [facility] [address] [place] [address] Dr. Harris Perdomo Covid-19 PCR (CVDTBH)on 08-15 SARS-CoV-2 (COVID-19) RNA JOSE G+probe Ql (Unsp spec) Not detected Normal NOT DETECTED [facility] Comment on above: Result Comment: When diagnostic testing is negative, the possibility of a false negative should be considered in the context of a patient's recent exposures and the presence of clinical signs and symptoms consistent with SARS-CoV-2. This test is not yet approved or cleared by the [place] FDA. When there are no FDA-approved or cleared tests available, and other criteria are met, FDA can make tests available under an emergency access mechanism called an Emergency Use Authorization (EUA). The EUA for this test is supported by the Emblem Drawer In of Health and Human Service's declaration that circumstances exist to justify the emergency use of in vitro diagnostics for the detection and/or diagnosis of the virus that causes COVID-19. This EUA will remain in effect for the duration of the COVID-19 declaration justifying emergency of IVDs, unless it is terminated or revoked by the FDA (after which the test may no longer be used). Performed By: #### C VDTBH #### [facility] [address] [place] [address] Dr. Harris Perdomo DRUG SCREEN RAPID (URINE)on 08-26-2022 AMP Negative Normal NEGATIVE [facility] Comment on above: Performed By: #### E RUR, DRUGRPD #### [facility] [address] [place] [address] Dr. Harris Perdomo BAR Negative Normal NEGATIVE [facility] Comment on above: Performed By: #### E RUR, DRUGRPD #### [facility] [address] [place] [address] Dr. Harris Perdomo BUP Negative Normal NEGATIVE [facility] Comment on above: Performed By: #### E RUR, DRUGRPD #### [facility] [address] [place] [address] Dr. Harris Perdomo BZO Positive Abnormal NEGATIVE [facility] Comment on above: Performed By: #### E RUR, DRUGRPD #### [facility] [address] [place] [address] Dr. Harris Perdomo LAURA Negative Normal NEGATIVE [facility] Comment on above: Performed By: #### E RUR, DRUGRPD #### [facility] [address] [place] [address] Dr. Harris Perdomo CUT-OFFS SEE BELOW Normal [facility] Comment on above: Result Comment: AMP (Amphetamine): 500ng/mL, BAR (Barbituates): 200 ng/mL, BZO (Benzodiazepines): 150 ng/mL, BUP (Buprenorphine): 10 ng/mL, LAURA (Cocaine): 150 ng/mL, mAMP (Methamphetamine): 500 ng/mL, MTD (Methadone): 200 ng/mL, OPI (Opiates): 100 ng/mL, OXY (Oxycodone): 100 ng/mL, PCP (Phencyclidine): 25 ng/mL, PPX (Propoxyphene): 300 ng/mL, THC (Cannabinoids): 50 ng/mL, TCA (Trycyclic Antidepressants): 300 ng/mL Performed By: #### E RUR, DRUGRPD #### [facility] [address] [place] [address] Dr. Harris Perdomo DRUG CUT HEADER DRUG CLASS TEST SYST EM CUT-OFF CONCENTRATIONS ARE FOLLOWS: Normal [facility] Comment on above: Performed By: #### E RUR, DRUGRPD #### [facility] [address] [place] [address] Dr. Harris Perdomo mAMP Negative Normal NEGATIVE [facility] Comment on above: Performed By: #### E RUR, DRUGRPD #### [facility] [address] [place] [address] Dr. Harris Perdomo MTD Negative Normal NEGATIVE [facility] Comment on above: Performed By: #### E RUR, DRUGRPD #### [facility] [address] [place] [address] Dr. Harris Perdomo OPI Negative Normal NEGATIVE [facility] Comment on above: Performed By: #### E RUR, DRUGRPD #### [facility] [address] [place] [address] Dr. Harris Perdomo OXY Negative Normal NEGATIVE [facility] Comment on above: Performed By: #### E RUR, DRUGRPD #### [facility] [address] [place] [address] Dr. Harris Perdomo PCP Negative Normal NEGATIVE [facility] Comment on above: Performed By: #### E RUR, DRUGRPD #### [facility] [address] [place] [address] Dr. Harris Perdomo PPX Negative Normal NEGATIVE [facility] Comment on above: Performed By: #### E RUR, DRUGRPD #### [facility] [address] [place] [address] Dr. Harris Perdomo TCA Negative Normal NEGATIVE [facility] Comment on above: Performed By: #### E RUR, DRUGRPD #### [facility] [address] [place] [address] Dr. Harris Perdomo THC Negative Normal NEGATIVE [facility] Comment on above: Performed By: #### E RUR, DRUGRPD #### [facility] [address] [place] [address] Dr. Harris Perdomo ER URINE PROFILEon 3 Bilirubin Ql (U) Negative Normal NEGATIVE [facility] Comment on above: Performed By: #### E RUR, DRUGRPD #### [facility] [address] [place] [address] Dr. Harris Perdomo Clarity (U) CLEAR Normal CLEAR [facility] Comment on above: Performed By: #### E RUR, DRUGRPD #### [facility] [address] [place] [address] Dr. Harris Perdomo Color (U) LT. YELLOW Normal YELLOW [facility] Comment on above: Performed By: #### E RUR, DRUGRPD #### [facility] [address] [place] [address] Dr. Harris Perdomo ERUAHD A micrscopic examina tion will be performed if indicated. Normal [facility] Comment on above: Performed By: #### E RUR, DRUGRPD #### [facility] [address] [place] [address] Dr. Harris Perdomo Glucose Ql (U) Negative Normal NEGATIVE [facility] Comment on above: Performed By: #### E RUR, DRUGRPD #### [facility] [address] [place] [address] Dr. Harris Perdomo Hemoglobin Ql (U) Negative Normal NEGATIVE [facility] Comment on above: Performed By: #### E RUR, DRUGRPD #### [facility] [address] [place] [address] Dr. Harris Perdomo Ketones Ql (U) Negative Normal NEGATIVE [facility] Comment on above: Performed By: #### E RUR, DRUGRPD #### [facility] [address] [place] [address] Dr. Harris Perdomo LEUKOCYTES Negative Normal NEGATIVE [facility] Comment on above: Performed By: #### E RUR, DRUGRPD #### [facility] [address] [place] [address] Dr. Harris Perdomo Nitrite Ql (U) Negative Normal NEGATIVE [facility] Comment on above: Performed By: #### E RUR, DRUGRPD #### [facility] [address] [place] [address] Dr. Harris Perdomo pH (U) 6.5 [pH] Normal 5-9 [facility] Comment on above: Performed By: #### E RUR, DRUGRPD #### [facility] [address] [place] [address] Dr. Harris Perdomo SPEC GRAVITY <=1.005 Abnormal 1.005-<=1.02 5 [facility] Comment on above: Performed By: #### E RUR, DRUGRPD #### [facility] [address] [place] [address] Dr. Harris Perdomo UA PROTEIN Negative Normal NEGATIVE/ TRACE [facility] Comment on above: Performed By: #### E RUR, DRUGRPD #### [facility] [address] [place] [address] Dr. Harris Perdomo UR MICRO IND NOT INDICATED Normal [facility] Comment on above: Performed By: #### E RUR, DRUGRPD #### [facility] [address] [place] [address] Dr. Harris Perdomo Urobilinogen Qn (U) 0.2 {Baylee'U}/dL Normal 0.2 - 1. 0 [facility] Comment on above: Performed By: #### E RUR, DRUGRPD #### [facility] [address] [place] [address] Dr. Harris Perdomo ETHANOL (BLD ALC)on 08-27-19 23 ALC NOTE NOTE: 80 mg/dl is th e legal limit for a blood alcohol level Normal [facility] Comment on above: Performed By: #### S ALYC, ETH, ACET, CMP, TSH #### [facility] [address] [place] [address] Dr. Harris Perdomo Ethanol [Mass/Vol] mg/dL Normal [facility] Comment on above: Performed By: #### S ALYC, ETH, ACET, CMP, TSH #### [facility] [address] [place] [address] Dr. Harris Perdomo PROF 14(COMP METB)on 023 Albumin [Mass/Vol] 3.8 g/dL Normal 3.4-5.0 [facility] Comment on above: Performed By: #### S ALYC, ETH, ACET, CMP, TSH #### [facility] [address] [place] [address] Dr. Harris Perdomo Albumin/Globulin [Mass ratio] 1.2 {ratio} Normal [facility] Comment on above: Performed By: #### S ALYC, ETH, ACET, CMP, TSH #### [facility] [address] [address] [address] Harris Perdomo ALP [Catalytic activity/Vol] 103 U/L Normal 46-[address] [facility] Comment on above: Performed By: #### S ALYC, ETH, ACET, CMP, TSH #### [facility] [address] [place] [address] Dr. Harris Perdomo ALT [Catalytic activity/Vol] 6 U/L Critically low 14-[address] [facility] Comment on above: Performed By: #### S ALYC, ETH, ACET, CMP, TSH #### [facility] [address] [place] [address] Dr. Harris Perdomo Anion gap [Moles/Vol] 12.3 mmol/L Normal [facility] Comment on above: Performed By: #### S ALYC, ETH, ACET, CMP, TSH #### [facility] [address] [address] [address] Harris Perdomo AST [Catalytic activity/Vol] 14 U/L Critically low 15-37 [facility] Comment on above: Performed By: #### S ALYC, ETH, ACET, CMP, TSH #### [facility] [address] [place] [address] Dr. Harris Perdomo Bilirubin [Mass/Vol] 0.4 mg/dL Normal 0.2-1.0 [facility] Comment on above: Performed By: #### S ALYC, ETH, ACET, CMP, TSH #### [facility] [address] [place] [address] Dr. Harris Perdomo Calcium [Mass/Vol] 9.1 mg/dL Normal 8.5-10.1 [facility] Comment on above: Performed By: #### S ALYC, ETH, ACET, CMP, TSH #### [facility] [address] [address] [address] Harris Perdomo Chloride [Moles/Vol] 106 mmol/L Normal 98-[address] [facility] Comment on above: Performed By: #### S ALYC, ETH, ACET, CMP, TSH #### [facility] [address] [address] [address] Harris Perdomo CO2 [Moles/Vol] 28.7 mmol/L Normal 21.0-32.0 [facility] Comment on above: Performed By: #### S ALYC, ETH, ACET, CMP, TSH #### [facility] [address] [place] [address] Dr. Harris Perdomo Creatinine [Mass/Vol] 0.65 mg/dL Normal 0.55-1.02 [facility] Comment on above: Performed By: #### S ALYC, ETH, ACET, CMP, TSH #### [facility] [address] [place] [address] Dr. Harris Perdomo EGFR-AF JAPANESE >60 Normal >=60 [facility] Comment on above: Performed By: #### S ALYC, ETH, ACET, CMP, TSH #### [facility] [address] [address] [address] Harris Perdomo EGFR-NON AF JAPANESE >60 Normal >=[address] [facility] Comment on above: Performed By: #### S ALYC, ETH, ACET, CMP, TSH #### [facility] [address] [address] [address] Harris Perdomo Globulin (S) [Mass/Vol] 3.2 g/dL Normal [facility] Comment on above: Performed By: #### S ALYC, ETH, ACET, CMP, TSH #### [facility] [address] [address] [address] Harris Perdomo Glucose [Mass/Vol] 99 mg/dL Normal 74-106 [facility] Comment on above: Performed By: #### S ALYC, ETH, ACET, CMP, TSH #### [facility] [address] [place] [address] Dr. Harris Perdomo Potassium [Moles/Vol] 4.0 mmol/L Normal 3.5-5.[address] [facility] Comment on above: Performed By: #### S ALYC, ETH, ACET, CMP, TSH #### [facility] [address] [place] [address] Dr. Harris Perdomo Protein [Mass/Vol] 7.0 g/dL Normal 6.4-8.2 [facility] Comment on above: Performed By: #### S ALYC, ETH, ACET, CMP, TSH #### [facility] [address] [place] [address] Dr. Harris Perdomo Sodium [Moles/Vol] 143 mmol/L Normal 136-145 [facility] Comment on above: Performed By: #### S ALYC, ETH, ACET, CMP, TSH #### [facility] [address] [place] [address] Dr. Harris Perdomo Urea nitrogen [Mass/Vol] 20.0 mg/dL Critically high 7.0-18.[address] [facility] Comment on above: Performed By: #### S ALYC, ETH, ACET, CMP, TSH #### [facility] [address] [address] [address] Harris Perdomo Urea nitrogen/Creatinine [Mass ratio] 30.8 mg/mg Normal [facility] Comment on above: Performed By: #### S ALYC, ETH, ACET, CMP, TSH #### [facility] [address] [address] [address] Harris Perdomo SALICYLATEon 08-26-2022 SALICYLATE <2.8 Normal <=19.[address] [facility] Comment on above: Performed By: #### S ALYC, ETH, ACET, CMP, TSH #### [facility] [address] [address] [address] Harris Perdomo TSHon 08-26-2022 TSH 1.224 uIU/mL Normal 0.358-3.[address] [facility] Comment on above: Performed By: #### S ALYC, ETH, ACET, CMP, TSH #### [facility] [address] [address] [address] Harris Perdomo XR Knee 3 Views Lefton 02-09 XR Knee 3 Views Left FINDINGS: Mild bilateral patellofemoral joint space loss. No cortical or subchondral fracture. No significant osteophyte formation. Small left sided patellofemoral effusion. IMPRESSION: 1. 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 Report reported and signed by Kieran Caputo on 02/09/2022 1429 Normal [facility] XR Knee 3 Views Righton 01-16 XR Knee 3 Views Right Please see left knee report. Report reported and signed by Kieran Caputo on 02/09/2022 1430 Normal [facility] XR Humerus Righton XR Humerus Right HISTORY: Fall x 2 we eks FINDINGS: Bone mineralization is normal for this age. No acute fracture, dislocation or significant arthritic changes are seen. No significant joint space effusion is present. Soft tissues are without abnormal calcifications or radiopaque foreign body. No active erosive changes are identified. IMPRESSION: Normal skeletal appearance. Report reported and signed by Kieran Caputo on 09/11/2021 1054 Normal [facility] Lipid Panelon 05-14-2021 Cholesterol [Mass/Vol] 199 mg/dL Normal 125-200 [facility] Comment on above: Result Comment: Low risk < 200mg/dL Borderline risk 201-239 mg/dl High risk > or equal to 240 Performed By: #### L IPD #### [facility] [address] [place], [place] [id number] Cholesterol in HDL [Mass/Vol] 51 mg/dL Normal >40 [facility] Comment on above: Result Comment: High Cardiovascular Risk HDL <40 mg/dL Low Cardiovascular Risk HDL > or equal to 60 mg/dl Performed By: #### L IPD #### [facility] [address] [place], [place] [id number] Cholesterol in LDL [Mass/Vol] 112 mg/dL Normal [facility] Comment on above: Result Comment: LDL ATP III CLASSIFICATION LDL less than 100 mg/dl Optimal LDL 100-129 mg/dl Near or above optimal LDL 130-159 Borderline high LDL 160-189 High LDL greater than 189 mg/dl Very High Performed By: #### L IPD #### [facility] [address] [place], [place] [id number] Cholesterol in VLDL [Mass/Vol] 36 mg/dL Normal [facility] Comment on above: Performed By: #### L IPD #### [facility] [address] [place], [place] [id number] Cholesterol.total/C holesterol in HDL [Mass ratio] 4 {ratio} Normal [facility] Comment on above: Performed By: #### L IPD #### [facility] [address] [place], [place] [id number] Triglyceride [Mass/Vol] 178 mg/dL High 30-150 [facility] Comment on above: Result Comment: TRIG ATPIII CLASSIFICATIONS TRIG less than 150 mg/dl Normal TRIG 150-199 mg/dl Borderline High TRIG 200-500 mg/dl High TRIG greather than 500 mg/dl Very High Performed By: #### L IPD #### [facility] [address] [place], [place] [id number] Q - [employer]ED(TM) 25-[place] V IT D(D2D3)LC/MS/MSon 05-14-2021 VITAMIN D, 25-OH, D2 <4 Normal [facility] Comment on above: Order Comment: [facility] Testing performed at: [facility], [employer], [address], [place], [place], , Director Television News: Andrey Lott M.D.,PhD [facility] Collection Date/Time: [facility] Results Received Date/Time: [facility] Reported Date/Time: Result Comment: This test was developed and its analytical performance characteristics have been determined by [employer] [place], [place]. It has not been cleared or approved by the U.S. Food and Drug Administration. This assay has been validated pursuant to the CLIA regulations and is used for clinical purposes. Performed By: #### [id number] #### [facility] Default [address] [place] [address] VITAMIN D, 25-OH, D3 51 ng/mL Normal [facility] Comment on above: Order Comment: [facility] Testing performed at: [facility], [employer], [address], [place], [place], , Director Television News: Andrey Lott M.D.,PhD [facility] Collection Date/Time: [facility] Results Received Date/Time: [facility] Reported Date/Time: Result Comment: This test was developed and its analytical performance characteristics have been determined by [employer] [place], [place]. It has not been cleared or approved by the U.S. Food and Drug Administration. This assay has been validated pursuant to the CLIA regulations and is used for clinical purposes. Performed By: #### [id number] #### [facility] [address] [place] [address] VITAMIN D, 25-OH, TOTAL 51 ng/mL Normal 30-100 [facility] Specialist Comment on above: Order Comment: [facility] Testing performed at: [facility], [employer], [address], [place], [place], , Director Television News: Andrey Lott M.D.,PhD [facility] Collection Date/Time: [facility] Results Received Date/Time: [id number] [facility] Reported Date/Time: Result Comment: Cherelle min D, 25-Hydroxy reports concentrations of two common forms, 25-OHD2 and 25-OHD3. 25-OHD3 indicates both endogenous production and supplementation. 25-OHD2 is an indicator of exogenous sources such as diet or supplementation. Therapy is based on measurement of Total 25-OHD, with levels <20 ng/mL indicative of Vitamin D deficiency, while levels between 20 ng/mL and 30 ng/mL suggest insufficiency. Optimal levels are > or = 30 ng/mL. Vitamin D is fat-soluble and therefore inadvertent or intentional ingestion of excessively high amounts could be toxic. Studies in children and adults suggest blood levels would need to exceed 150 ng/mL before there is any concern. Nesha MF, Andrea GILL, Megan CASTILLO, et al. Evaluation, treatment and prevention of vitamin D deficiency: an Endocrine Society clinical practice guideline. J Clin Endocrinol Metab. 2011;96(7):1911-30. For additional information, please refer to http://education.tuul/faq/YMG484 (This link is being provided for informational/ educational purposes only.) Performed By: #### [id number] #### [facility] [address] [place] [address] SCREENING MAMMOGRAM W/MAKENNA, BILATERAL*on 05-14-2021 SCREENING MAMMOGRAM W/MAKENNA, BILATERAL* COMPARISON: Dating back to May 07, 2020 and May 04, 2019 TECHNIQUE: 2D and 3D Tomosynthesis of the right and left breasts was performed. FINDINGS: Breast composition demonstrates almost entirely fat. Stable. Typically benign calcifications. Right upper outer breast biopsy clip. No suspicious microcalcifications, asymmetry, architectural distortion or associated features are present. No significant axillary lymphadenopathy. IMPRESSION: BI RADS 2 : BENIGN MAMMOGRAM Board Certified Radiologist. Accredited by the ACR and FDA. MAMMOGRAPHY IS VERY IMPORTANT TO YOUR HEALTH. THE CURRENT [place] [employer] OF [employer] AND [employer]IVE [employer]WORK GUIDELINES RECOMMENDS ANNUAL MAMMOGRAPHY BEGINNING AT AGE 40. THIS FACILITY USES A REMINDER SYSTEM TO ENSURE ALL PATIENTS RECEIVE REMINDER NOTIFICATIONS AT THE APPROPRIATE TIME BASED ON THE RECOMMENDATIONS OF THIS EXAM. Report reported and signed by Kieran Caputo on 05/14/2021 1337 Normal [facility] Proofreader CNOVSPon 02-04-2017 CNOVSP Visit (SP) Office ([facility]) LISA MÁRQUEZ ([id number]) 1955 FDate Time Provider Department02/04/17 2:00 PM RICARDO CARRASCO HEMACL During your visit today, we recorded the following information about you: Temperature Pulse Respiration Blood pressure 98 degrees 85/minute 18/minute 115/69 Weight Height 44 kg 1.549 mMINDY LUTHER DOUGHERTY PA-C 02/04/2017 1:50 PM SignedPatient: Mirian Elizabeth KristieOB: 1955Race: Katya Complaint:Endometrial CancerHPI: Mirian is here for follow up. She had endometrial cancer diagnosed [id number] and treated with chemotherapy and radiation. She has been feeling welland sees Dr. 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 Norwood has her onNeurontin. She is also on Sinemet and Requip for Parkinsonism. She has left armtremor and left leg cramps.She is following with periodic ultrasounds of her thyroid with Dr. Penaloza for athyroid nodule as well.She also had ANDquot;something on her liverANDquot; and has had 2 CTs to monitorthis at [place] and she states it has been stable.Current Medications:Current Outpatient Prescriptions:carbidopa-l evodopa (SINEMET 25-100) 25-100 mg per tablet Disp: Rfl:lidocaine (XYLOCAINE) 5 % ointment Disp: Rfl:metaxalone (SKELAXIN) 800 mg tablet Disp: Rfl:rOPINIRole (REQUIP) 2 mg tablet Disp: Rfl:citalopram (CELEXA) 40 mg tablet Take 40 mg by mouth once daily. Disp: Rfl:mirtazapine (REMERON) 15 mg tablet Take 15 mg by mouth daily at bedtime. Disp:Rfl:Ibandronate 150 mg tablet Take 150 mg by mouth once every month. Disp: Rfl:gabapentin (NEURONTIN) 400 mg capsule Disp: Rfl:tiZANidine (ZANAFLEX) 4 mg tablet Take 4 mg by mouth once daily. Disp: Rfl:rOPINIRole (REQUIP) 0.5 mg tablet Take by mouth. Takes 0.75 mg BID and 1mg atHS Disp: Rfl:No current facility-administered medications for this visit.Allergies:Review of patient's allergies indicates:No Known AllergiesReview of Systems:GENERAL: No weight loss, malaise or fevers., SEE HPIHEENT: Negative for frequent or significant headaches, No changes in hearingor vision, no nose bleeds or other nasal problemsRESPIRATORY: Negative for cough, wheezing or shortness of breath.CARDIOVASCULAR: Negative for chest pain, leg swelling or palpitations.GI: Negative for abdominal discomfort, blood in stools or black stools orchange in bowel habitsGU: No history of dysuria, frequency or incontinenceMUSCULOSKELET AL: Left arm/shoulder pain, tremor left handSKIN: Negative for lesions, rash, and itching.All other systems reviewed are negative.Physical Exam:BP 115/69 Pulse 85 Temp 36.7 ?C (98 ?F) (Oral) Resp 18 Ht 154.9 cm (5'0.98ANDquot;) Wt 44 kg (97 lb) BMI 18.34 kg/m2 BMI 18.34 kg/(m2)General appearance: well appearing, alert, in no acute distress, well-hydrated,well nourishedSkin: skin color, texture, turgor normal, no suspicious rashes or lesionsLungs: clear to auscultation, no wheezing or rhonchiHeart: Negative. RRR without murmur, gallop, or rubs. No ectopy.Abdomen: Normal abdominal exam, Abdomen soft, non-tender. Bowel sounds normal.No masses, organomegalyNeuro: tremor to left handImaging Studies: CXR at [facility] 01/19/2017 was negativeASSESSMENT/PLAN:1 . 182.0 Endometrial cancerShe has no evidence of disease recurrence. She is now 12 years out from hercancer and she will follow up with her PCP for yearly chest x-rays. 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 ROPINIROLE 0.5 MG TABLET Take by mouth. Takes 0.75 mg*Medication notes this encounter CARBIDOPA 25 MG-LEVODOPA 100 MG TABLET >> August [facility] 02/04/2017 1:31 PM >> [facility] AugustFeb 04, 2017 1:31 PM Received from: External Pharmacy LIDOCAINE 5 % TOPICAL OINTMENT >> August [facility] 02/04/2017 1:31 PM >> ASCENCIONAugustFeb 04, 2017 1:31 PM Received from: External Pharmacy METAXALONE 800 MG TABLET >> August [facility] 02/04/2017 1:31 PM >> [facility] AugustFeb 04, 2017 1:31 PM Received from: External Pharmacy ROPINIROLE 2 MG TABLET >> August [facility] 02/04/2017 1:31 PM >> [facility] AugustFeb 04, 2017 1:31 PM Received from: External Pharmacy ROPINIROLE 1 MG TABLET >> August [facility] 02/04/2017 1:31 PM >> [facility] AugustFeb 04, 2017 1:31 PM Received from: External PharmacyProblem List As Of Date 02/04/2017 Noted Resolved Endometrial cancer [C54.1] INVALID FOR* Personal history of malignant neoplasm of femal*INVALID FOR* DIRECTOR 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 She had endometrial cancer diagnosedin 2004 and treated with chemotherapy and radiation. She has been feelingwell and sees Dr. 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 Norwood has her onNeurontin. She is also on Sinemet and Requip for Parkinsonism. She hasleft arm tremor and left leg cramps.She is following with periodic ultrasounds of her thyroid with Dr. Penalozafor a thyroid nodule as well.She also had something on her liver and [place] [facility] [place].Current Medications:Current Outpatient Prescriptions:carbidopa-l evodopa (SINEMET 25-100) 25-100 mg per tablet Disp: Rfl:lidocaine (XYLOCAINE) 5 % ointment Disp: Rfl:metaxalone (SKELAXIN) 800 mg tablet Disp: Rfl:rOPINIRole (REQUIP) 2 mg tablet Disp: Rfl:citalopram (CELEXA) 40 mg tablet Take 40 mg by mouth once daily. Disp:Rfl:mirtazapine (REMERON) 15 mg tablet Take 15 mg by mouth daily at bedtime.Disp: Rfl:Ibandronate 150 mg tablet Take 150 mg by mouth once every month. Disp:Rfl:gabapentin (NEURONTIN) 400 mg capsule Disp: Rfl:tiZANidine (ZANAFLEX) 4 mg tablet Take 4 mg by mouth once daily. Disp:Rfl:rOPINIRole (REQUIP) 0.5 mg tablet Take by mouth. Takes 0.75 mg BID and1mg at HS Disp: Rfl:No current facility-administered medications for this visit.Allergies:Review of patient's allergies indicates:No Known AllergiesReview of Systems:GENERAL: No weight loss, malaise or fevers., SEE HPIHEENT: Negative for frequent or significant headaches, No changes inhearing or vision, no nose bleeds or other nasal problemsRESPIRATORY: Negative for cough, wheezing or shortness of breath.CARDIOVASCULAR: Negative for chest pain, leg swelling or palpitations.GI: Negative for abdominal discomfort, blood in stools or black stools orchange in bowel habitsGU: No history of dysuria, frequency or incontinenceMUSCULOSKELET AL: Left arm/shoulder pain, tremor left handSKIN: Negative for lesions, rash, and itching.All other systems reviewed are negative.Physical Exam:BP 115/69 Pulse 85 Temp 36.7 ?C (98 ?F) (Oral) Resp 18 Ht 154.9 cm(5' 0.98 ) Wt 44 kg (97 lb) BMI 18.34 kg/m2 BMI 18.34 kg/(m2)General appearance: well appearing, alert, in no acute distress,well-hydrated, well nourishedSkin: skin color, texture, turgor normal, no suspicious rashes or lesionsLungs: clear to auscultation, no wheezing or rhonchiHeart: Negative. RRR without murmur, gallop, or rubs. No ectopy.Abdomen: Normal abdominal exam, Abdomen soft, non-tender. Bowel soundsnormal. No masses, organomegalyNeuro: tremor to left handImaging Studies: CXR at [facility] 01/19/2017 was negativeASSESSMENT/PLAN:1 . 182.0 Endometrial cancerShe has no evidence of disease recurrence. She is now 12 years out fromher cancer and she will follow up with her PCP for yearly chest x-rays. MIS DOUGHERTY PA-C Normal [facility] Remote CBCDIF (for [facility] use o nly)on 02-04-2017 Abs Baso 0.01 k/uL Normal 0.00-0.10 [facility] Abs Geary 0.27 k/uL Normal 0.00-0.86 [facility] Abs Neut 2.36 k/uL Normal 1.45-7.50 [facility] Basophils/100 WBC Auto (Bld) 0.3 % Normal [facility] Eosinophils 0.03 10*3/uL Normal 0.00-0.45 [facility] Eosinophils/100 leukocytes 0.9 % Normal [facility] Erythrocyte distribution width Auto Ratio (RBC) 12.8 % Normal 11.5-15.0 [facility] Erythrocytes (RBC) 4.14 10*6/uL Normal 3.90-5.20 [facility] Hematocrit (HCT) 37.9 % Normal 36.0-46.0 [facility] Hemoglobin mass conc (Bld) 12.6 g/dL Normal 11.5-15.5 [facility] Lymphocytes 0.76 10*3/uL Low 1.00-4.00 [facility] Lymphocytes/100 leukocytes 22.2 % Normal [facility] MCH 30.4 pG Normal 26.0-34.0 [facility] MCHC mass conc (RBC) 33.2 g/dL Normal 30.5-36.0 [facility] MCV 91.5 fL Normal 80.0-100.0 [facility] Monocytes/100 leukocytes 7.9 % Normal [facility] Neutrophils/100 WBC Auto (Bld) 68.7 % Normal [facility] Platelet mean volume (PMV) 8.7 fL Low 9.0-12.7 [facility] Platelets 198 10*3/uL Normal 150-400 [facility] WBC (Leukocytes) 3.43 10*3/uL Low 3.70-11.00 [facility] Encounters Encounter Date Encounter Type Care Provider Facility Start: 05-13-2023 End: 05-13-2023 ambulatory DIVINA PROCTOR Not Available Start: 04-15-2023 End: 04-15-2023 ambulatory MOHIT GENTILE Not Available Start: 04-12-2023 End: 04-12-2023 ambulatory SHASHI SERVIN Not Available Start: 04-01-2023 End: 04-01-2023 ambulatory DIVINA PROCTOR Not Available Start: 08-26-2022 End: 08-27-[address] FRANKIE FIERRO . Facility: Start: 02-04-2017 End: 02-05-2017 Ambulatory RICARDO CARRASCO [facility] Payers Date Payer Category Payer Medicare [id number] 1960 Unknown [id number] 1955 Unknown [id number] 2.16.84 [id number] 1955 Unknown [id number] 1955 Unknown [id number] 1955 Unknown [id number] 1955 Unknown [id number] Clinical Note 09-11-2021 Note Date & Type Note Facility 09-11-2021 Note HISTORY: Multiple fa lls PROCEDURE: Without IV contrast, images of the brain were performed. FINDINGS: No worrisome intra- or extra-axial mass lesions, mass effect or hemorrhage are identified. No evidence of major vessel ischemia is noted. Ventricular size is normal for this age, and commensurate with the cerebral sulci. Calvarium, mastoid air cells, paranasal sinuses and orbital contents are unremarkable. IMPRESSION: No intra-cranial hemorrhage or intra-axial edema. As clinically indicated, carotid Doppler ultrasound may be of assistance. Report reported and signed by Kieran Caputo on 09/11/2021 1121 [facility] Proofreader Summary Purpose Family History No Family History Records FoundNo Family History Records FoundNo Family History Records FoundNo Family History Records Found Advance Directives No Advanced Directives Records FoundNo Advanced Directives Records FoundNo Advanced Directives Records FoundNo Advanced Directives Records Found Additional Source Comments INFORMATION SOURCE (unrecogn ized section and content) DATE CREATED AUTHOR 11/10/2017 [facility] DATE CREATED AUTHOR AUTHOR'S ORGANIZ ATION 02/16/2022 [facility] DATE CREATED AUTHOR AUTHOR'S ORGANIZ ATION 08/31/2022 [facility] DATE CREATED AUTHOR AUTHOR'S ORGANIZ ATION 05/15/2023 [facility] EPIC FOR RECORDS PERTAINING TO PATIENTS WHO ARE OR HAVE BEEN ENROLLED IN A CHEMICAL DEPENDENCY/SUBSTANCEABUSE PROGRAM, SOME INFORMATION MAY BE OMITTED. This clinical summary was aggregated from multiple sources. Caution should be exercised in using it in the provision of clinical care. This summary normalizes information from multiple sources, and as a consequence, information in this document may materially change the coding, format and clinical context of patient data. In addition, data may be omitted in some cases. CLINICAL DECISIONS SHOULD BE BASED ON THE PRIMARY CLINICAL RECORDS. [facility] HospitalMelanie [facility]. provides no warranty or guarantee of the accuracy or completeness of information in this document.
[2023-05-27 11:53] LABS: Bilirubin Urine NEGATIVE (NEGATIVE); Blood Urine NEGATIVE (NEGATIVE); Clarity Urine CLEAR (CLEAR); Color Urine YELLOW (YELLOW); Glucose Urine UA NEGATIVE (NEGATIVE); Ketones Urine TRACE mg/dL (NEGATIVE); Leukocyte Esterase Urine NEGATIVE (NEGATIVE); Nitrite Urine NEGATIVE (NEGATIVE); Protein Urine NEGATIVE (NEG/TRACE); Specific Gravity Urine 1.025 (1.005-1.025); Urobilinogen Urine 0.2 EU/dL (0.2-1.0)
== END 2023-05-27 11:38 | disposition home or self-care (01) ==
LOC: LAB 11:37
PROVIDERS: PCP Family Medicine; Visit Provider Family Medicine
DX: N39.0 Urinary tract infection, site not specified (principal); R41.82 Altered mental status, unspecified
CPT/HCPCS: 81003; 87086

== ENCOUNTER 2023-09-07 11:12 | Inpatient (IN) | payer MEDICARE, OTHER, SELFPAY ==
[2023-09-07] VITALS (22 sets, daily range): BP systolic 113–149; BP diastolic 56–80; PULSE 73–88; TEMP 36.6–37; O2SAT 93–100; BMI 19.5; BMI 20.4
--- OUTSIDE RECORDS SUMMARY | 2023-09-07 11:29 | XMS_ITS | CCD ---
Author Organization [facility] Care Team Providers Care Collar Sewer Name Role Phone FANNING, RICARDO Yola Unavailable Unavailable FANNING, RICARDO E Unavailable Unavailable PAY ., DR DAVID Admitting Unavailable PAY ., DR DAVID Attending Unavailable JASPREET, DR SANABRIA Primary Care Unavailable PAY ., DR DAVID Consulting Unavailable GRECHNY ., SALLY CARABALLO Consulting Unavailenrike Vogel MD, [facility] Primary Care Provider [phone] Enrico BILLING MACHINE OPERATOR, Saira Pelaez Unavailable Enrico BILLING MACHINE OPERATOR, Saira Pelaez Unavailable Jaspreet COLEMAN, [facility] Primary Care Provider SAIRA PROCTOR Attending Unavailable SHASHI SERVIN Attending Unavailab SAIRA Preston Attending Unavailable SAIRA PROCTOR Attending Unavailable SHASHI SERVIN Attending Unavailab SAIRA Preston Attending Unavailable SHASHI SERVIN Attending Unavailab MOHIT Barrera Attending Unavailable EVE SALAS Attending Unavailable SHEA VOGEL Referring Unavailable SHEA VOGEL Primary Care Unavailable EVE SALAS Attending Unavailable SHEA VOGEL Referring Unavailable [facility] Primary Care Unavailable Allergies Allergy Classification Reported Allergen(s) Allergy Type Date of Onset Reaction(s) Facility (1 source) buPROPion Drug Allergy 3 [facility] (4 sources) buPROPion Drug Allergy 3 [facility] (4 sources) buPROPion; Translations: [BUPROPION HCL] Drug Allergy 2 [facility] Medications Current Medications Medication Drug Class(es) Dates Sig (Normalized) Sig (Original) acetaminophen 500 mg oral tablet (3 sources) take 1 tablet by mouth every six hours as needed for pain acetaminophen (TYLENOL EXTRA STRENGTH) 500 mg tablet Take 1 tablet (500 mg total) by mouth every 6 (six) hours as needed for pain. 0 Active baclofen 10 mg oral tablet (7 sources) gamma-Aminobutyr ic Acid-ergic Agonist Start: 07-15-2023 take 1 tablet by mouth in the morning, then take 1 tablet by mouth at bedtime baclofen (LIORESAL) 10 mg tablet Take 1 tablet (10 mg total) by mouth in the morning and 1 tablet (10 mg total) before bedtime. Morning and 2pm. 0 07/15/2023 Active Start: 07-01-2023 End: 07-31-2023 take 1 tablet by mouth in the morning, then take 1 tablet by mouth in the evening, then take 1 tablet by mouth at bedtime baclofen (Lioresal) 20 MG tablet Indications: Dystonia , Muscle cramping Take 1 tablet (20 mg) by mouth in the morning and 1 tablet (20 mg) in the evening and 1 tablet (20 mg) before bedtime. 90 tablet 0 07/01/2023 07/31/2023 Active bisacodyl 10 mg rectal suppository (3 sources) Stimulant Laxative bisacodyl (Du lcolax) 10 MG suppository Insert into the rectum 0 Active brimonidine tartrate 2 mg/ml ophthalmic solution (7 sources) alpha-Adrenergic Agonist take 2 drop(s) into the eye(s) every twelve hours brimonidine (ALPHAGAN) 0.2 % ophthalmic solution Administer 2 drops to both eyes every 12 (twelve) hours. 0 Active take 1 drop(s) into the eye(s) in the morning brimonidine (AlphaGAN P) 0.2 % ophthalmi c solution Administer 1 drop into both eyes in the morning and 1 drop before bedtime. 0 Active calcium carbonate 500 mg dyllan wable tablet (6 sources) calcium carbonat e (TUMS) 200 mg elemental (500 mg) chewable tablet Chew 2.5 tablets (500 mg total) and swallow in the morning. 0 Active calcium carbonat e (Tums) 500 MG chewable tablet Chew 500 mg in the morning. 0 Active carbidopa 25 mg / levodopa 100 mg oral tablet (14 sources) Aromatic Amino Acid Decarboxylation Inhibitor, Aromatic Amino Acid Start: 03-02-2023 carbidopa-levodopa (SINEMET) 25-100 mg per tablet Indications: Parkinson's disease without dyskinesia, with fluctuating manifestations (CMS-HCC) , Gait instability , Parkinson's disease (CMS-HCC) Take 1 tablet at 6 am, 1 tablet at 10 am, 1 tablet at 2 pm, 1 tablet at 6 pm, 1 tablet at 10 pm. Take 30-45 mins before meals. 450 tablet 1 03/02/2023 Active Start: 03-01-2023 carbidopa-levo dopa (SINEMET CR) 25-100 mg per CR tablet Indications: Parkinson's disease (CMS-HCC) , Gait instability Take 1 tablet at 6 am, 1 tablet at 10 am, 1 tablet at 2 pm, 1 tablet at 6 pm, 1 tablet at 10 pm. Take 30-45 mins before meals. 450 tablet 1 03/01/2023 Active Start: 04-28-2022 carbidopa-levo dopa (Sinemet) 25-100 MG tablet Take 1 tablet by mouth 5 (five) times a day. Per neuro 0 04/28/2022 Active Start: 04-28-2022 take 1 tablet by mirza th five times daily, then take 1 tablet by mouth five times daily carbidopa-levodopa CR (Sinemet CR) 25-100 MG ER tablet Take 1 tablet by mouth 5 (five) times a day. Take one tablet 5 times a day 0 04/28/2022 Active carboxymethylcellulose sodium 5 mg/ml / glycerin 9 mg/ml ophthalmic solution (4 sources) Non-Standardized Chemical Allergen Start: 12-25-2022 End: 12-25-2023 take 2 drop(s) into the eye(s) in the morning Carboxymethylcellul-Glycerin (Refresh Relieva) 0.5-0.9 % solution Indications: Dry eye syndrome of both eyes Administer 2 drops into affected eye(s) in the morning and 2 drops before bedtime. 10 mL 11 12/25/2022 12/25/2023 Active cholecalciferol 0.05 mg oral capsule (7 sources) Vitamin D take 1 capsule by mouth in the morning cholecalciferol, vitamin D3, 2,000 units capsule Take 1 capsule (2,000 Units total) by mouth in the morning. 0 Active cholecalciferol (Vitamin D-3) 50 MCG (1999 UT) tablet Take by mouth Daily. 0 Active Eyelid Cleansers (OCUSOFT LID SCRUB FOAMING EX) (4 sources) Eyelid Cleansers (OCUSOFT LID SCRUB FOAMING EX) Apply topically. 0 Active famotidine 20 mg oral tablet (3 sources) Histamine-2 Receptor Antagonist Start: 09-20-2022 famotidine (PEPCID) 20 mg tablet gabapentin 100 mg oral capsule (9 sources) Anti-epileptic Agent Start: 08-18-2023 gabapentin (NEURONTIN) 100 mg capsule Indications: Bilateral leg cramps Take 1 capsule (100 mg total) by mouth See Admin Instructions. Patient is to take 200 mg as instructed to complete weaning instructions 30 capsule 0 08/18/2023 Active Start: 07-21-2023 End: 08-18-2023 take 1 tablet by mouth three times daily gabapentin (NEURONTIN) 600 mg tablet Indications: Lumbar spondylosis , Bilateral leg cramps Take 1 tablet (600 mg total) by mouth 3 (three) times a day. 90 tablet 1 07/21/2023 08/18/2023 Discontinued (Dose adjustment) Start: 12-25-2021 End: 07-21-2023 take 1 capsule by mouth three times daily as needed gabapentin (NEURONTIN) 400 mg capsule Indications: Chemotherapy-induced neuropathy (CMS-HCC) Take 1 capsule (400 mg total) by mouth 3 (three) times a day. 3rddose used as prn 270 capsule 1 12/25/2021 07/21/2023 Discontinued (Dose adjustment) ibandronic acid 150 mg oral tablet (4 sources) Bisphosphonate take 1 tablet by mouth every 30 days ibandronate (Boniva) 150 MG tablet Take 150 mg by mouth every 30 (thirty) days. 0 Active loperamide hydrochloride 2 mg oral capsule (6 sources) Opioid Agonist take 1 capsule by mouth four times daily as needed loperamide (IMODIUM) 2 mg capsule Take 1 capsule (2 mg total) by mouth 4 (four) times a day as needed. 0 Active LORazepam 0.5 mg oral tablet (7 sources) Benzodiazepine Start: 06-01-2023 LORazepam (Ativan) 0.5 MG tablet Indications: Generalized anxiety disorder (CMS/HCC) Take 0.5 tablets (0.25 mg) by mouth every 8 (eight) hours if needed for anxiety 2 tab bid prn for anxiety. May take up to tid for severe anxiety prn 45 tablet 1 06/01/2023 Active Start: 05-29-2022 take 1 tablet by mirza th three times daily LORazepam (ATIVAN) 0.5 mg tablet Take 1 tablet (0.5 mg total) by mouth 3 (three) times a day. 0 05/29/2022 Active magnesium oxide 400 mg oral tablet (4 sources) Start: 01-08-2023 take 1 tablet by mouth once daily magnesium oxide (Mag-Ox) 400 MG tablet Indications: Severe episode of recurrent major depressive disorder, with psychotic features (HCC) (CMS/HCC) 1 tablet by mouth once a day 30 tablet 11 01/08/2023 Active melatonin 5 mg oral capsule (7 sources) melatonin (CIRCA DIN) capsule Take by mouth. 0 Active Melatonin 5 MG c apsule Take by mouth. 0 Active mirtazapine 15 mg oral tablet (11 sources) Start: 06-09-2023 End: 09-07-2023 mirtazapine (Remeron) 15 MG tablet Indications: Generalized anxiety disorder (CMS/HCC) Take 2 tablets (30 mg) by mouth as needed at bedtime (may take 1-2 tabs at HS PRN) 60 tablet 2 06/09/2023 09/07/2023 Active omeprazole 40 mg delayed release oral capsule (7 sources) Proton Pump Inhibitor Start: 09-20-2022 End: 02-18-2024 omeprazole (PriLOSEC) 40 mg capsule pregabalin 50 mg oral capsule (1 source) Start: 08-18-2023 take 1 capsule by mouth in the morning, then take 1 capsule by mouth at bedtime pregabalin (LYRICA) 50 mg capsule Indications: Lumbar spondylosis , Bilateral leg cramps Take 1 capsule (50 mg total) by mouth in the morning and 1 capsule (50 mg total) before bedtime. 60 capsule 1 08/18/2023 Active sertraline 100 mg oral tablet (10 sources) Serotonin Reuptake Inhibitor Start: 06-01-2023 End: 05-31-2024 take 1.5 tablets by mouth in the morning sertraline (Zoloft) 100 MG tablet Indications: Generalized anxiety disorder (CMS/HCC) Take 1.5 tablets (150 mg) by mouth in the morning. 45 tablet 2 06/01/2023 05/31/2024 Active Start: 09-20-2022 sertraline (ZO LOFT) 100 mg tablet take 1 tablet by mirza th in the morning sertraline (ZOLOFT) 50 mg tablet Take 1 tablet (50 mg total) by mouth in the morning. Take with 100mg tablet. 0 Active sucralfate 1000 mg oral tablet (3 sources) Aluminum Complex Start: 09-20-2022 sucralfate (CARAFATE) 1 gram tablet 12 hr timolol 5 mg/ml ophthalmic solution (7 sources) beta-Adrenergic Beatrice Start: 08-18-2021 take 1 drop(s) into the eye(s) in the morning timolol (TIMOPTIC) 0.5 % ophthalmic solution Administer 1 drop to both eyes in the morning. 15 mL 3 08/18/2021 Active Completed/Discontinued Medications Medication Drug Class(es) Dates Sig (Normalized) Sig (Original) cyclobenzaprine hydrochloride 5 mg oral tablet (6 sources) Muscle Relaxant Start: 03-02-2023 End: 08-18-2023 take 1 tablet by mouth twice daily as needed for muscle spasms cyclobenzaprine (FLEXERIL) 5 mg tablet Indications: Muscle cramping Take 1 tablet (5 mg total) by mouth 2 (two) times a day as needed for muscle spasms (CC: Lower extremity muscle cramping). 60 tablet 3 04/16/2023 08/18/2023 Discontinued (Alternate therapy) Problems Active Problems Problem Classification Problem Date Documented Date Episodic/Chronic Adjustment disorders (8 sources) Adjustment disorder with anxious mood; Translations: [Adjustment disorder with anxiety] Onset: 10-01-2022 10-01-2022 Chronic Anxiety disorders (20 sources) Anxiety disorder, unspecified; Translations: [Generalized anxiety disorder] Onset: 11-07-2021 Chronic Cancer of uterus (4 sources) Malignant neoplasm of endometrium of corpus uteri ; Translations: [Malignant neoplasm of endometrium] Onset: 03-02-2013 01-06-2023 Chronic Esophageal disorders (4 sources) Gastroesophageal reflux disease without esophagitis; Translations: [Gastro-esophageal reflux disease without esophagitis] Onset: 10-01-2022 10-01-2022 Chronic Gastritis and duodenitis (4 sources) Chronic gastritis; Translations: [Unspecified chronic gastritis without bleeding] Onset: 10-01-2022 10-01-2022 Chronic Glaucoma (4 sources) Glaucoma; Translations: [Unspecified glaucoma] Onset: 10-01-2022 10-01-2022 Chronic Mood disorders (20 sources) Major depressive disorder, single episode, unspecified; Translations: [Recurrent major depression in partial remission] Onset: 11-07-2021 09-26-2022 Chronic Osteoporosis (4 sources) Osteoporosis; Translations: [Age-related osteoporosis without current pathological fracture] Onset: 10-01-2022 10-01-2022 Chronic Other aftercare (1 source) Other drift miner (current) drug therapy; Translations: [OTH DETENTION CURRENT DRUG THERAPY] Onset: 08-31-2022 Episodic Other and ill-defined heart disease (4 sources) Left atrial enlargement; Translations: [Cardiomegaly] Onset: 10-01-2022 10-01-2022 Chronic Other connective tissue disease (2 sources) Bilateral cramp of muscle of lower limbs; Translations: [Cramp and spasm] 07-21-2023 Episodic Other connective tissue disease (1 source) Cramp and spasm; Translations: [Cramp and spasm] Onset: 07-21-2023 Episodic Other connective tissue disease (1 source) Pain in lower limb Onset: 07-21-2023 Episodic Other hereditary and degenerative nervous system conditions (4 sources) Coarse tremor; Translations: [Other specified forms of tremor] Onset: 10-01-2022 10-01-2022 Chronic Other hereditary and degenerative nervous system conditions (2 sources) Dystonia; Translations: [Dystonia, unspecified] 07-01-2023 Chronic Other nervous system disorders (4 sources) Neuropathy; Translations: [Polyneuropathy, unspecified] Onset: 10-01-2022 10-01-2022 Chronic Other nervous system disorders (4 sources) Chronic pain; Translations: [Other chronic pain] Onset: 10-01-2022 10-01-2022 Chronic Other nervous system disorders (6 sources) Secondary parkinsonism; 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, unspecified] Onset: 10-01-2022 10-01-2022 Chronic Other nervous system disorders (4 sources) Polyneuropathy; Translations: [Polyneuropathy, unspecified] Onset: 10-01-2022 10-01-2022 Chronic Other nervous system disorders (7 sources) Neuropathy caused by chemical substance; Translations: [Drug-induced polyneuropathy] Onset: 11-07-2021 01-06-2023 Chronic Parkinson`s disease (1 source) Parkinson's disease; Translations: [PARKINSONS DISEASE] Onset: 08-31-2022 Chronic Residual codes; unclassified (7 sources) Periodic limb movement disorder; Translations: [Periodic limb movement disorder] Onset: 11-07-2021 01-06-2023 Chronic Spondylosis; intervertebral disc disorders; other back problems (3 sources) Lumbar spondylosis; Translations: [Spondylosis without myelopathy or radiculopathy, lumbar region] Onset: 07-21-2023 07-21-2023 Chronic Spondylosis; intervertebral disc disorders; other back problems (12 sources) Spinal stenosis in cervical region; Translations: [Spinal stenosis, cervical region] Onset: 10-01-2022 10-01-2022 Episodic Thyroid disorders (4 sources) Non-toxic multinodular goiter; Translations: [Nontoxic multinodular goiter] Onset: 10-01-2022 10-01-2022 Chronic Unclassified (7 sources) Parkinson's disease; Translations: [Parkinson's disease] Onset: 11-07-2021 10-01-2022 Chronic Unclassified (1 source) Unknown / UNK(Unknown) Onset: 02-04-2017 Unclassified (1 source) CONTACT W/AND (SUSP) EXPOS COVID-19; Translations: [CONTACT W/AND (SUSP) EXPOS COVID-19] Onset: 08-31-2022 Past or Other Problems Problem Classification Problem Date Documented Date Episodic/Chronic Cancer of uterus (3 sources) History of malignant neoplasm of endometrium; Translations: [Personal history of malignant neoplasm of other parts of uterus] Onset: 11-07-2021 11-07-2021 Episodic E Codes: Fall (6 sources) Fall; Translations: [Unspecified fall, sequela] Onset: 11-07-2021 11-07-2021 Episodic Fracture of neck of femur (hip) (3 sources) Closed intertrochanteric fracture of left femur; Translations: [Displaced intertrochanteric fracture of left femur, initial encounter for closed fracture] Onset: 09-13-2021 09-14-2021 Episodic Mood disorders (7 sources) Mood disorders Onset: 10-30-2022 Resolved: 06-01-2023 06-01-2023 Other and unspecified benign neoplasm (3 sources) Cutaneous neurofibroma; 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, unspecified] Onset: 11-01-2018 11-01-2018 Episodic Other circulatory disease (4 sources) Low blood pressure; Translations: [Hypotension, unspecified] Onset: 10-01-2022 10-01-2022 Episodic Other circulatory disease (7 sources) History of hypotension; Translations: [Personal history of other diseases of the circulatory system] Onset: 11-10-2021 01-06-2023 Episodic Other circulatory disease (3 sources) Orthostatic hypotension; Translations: [Orthostatic hypotension] Onset: 07-14-2021 07-14-2021 Episodic Other connective tissue disease (9 sources) Cramp; Translations: [Cramp and spasm] Onset: 03-02-2023 04-01-2023 Episodic Other infections; including parasitic (4 sources) Personal history of other infectious and parasitic diseases; Translations: [History of 2019 novel coronavirus disease (COVID-19)] Onset: 10-01-2022 10-01-2022 Episodic Other nervous system disorders (4 sources) Tremor; Translations: [Tremor, unspecified] Onset: 10-01-2022 10-01-2022 Episodic Other nervous system disorders (7 sources) Abnormal gait; Translations: [Unsteadiness on feet] Onset: 11-07-2021 01-06-2023 Episodic Other non-epithelial cancer of skin (7 sources) Intraepidermal squamous carcinoma of leg; Translations: [Carcinoma in situ of skin of left lower limb, including hip] Onset: 11-01-2018 01-06-2023 Episodic Other nutritional; endocrine; and metabolic disorders (4 sources) Underweight; Translations: [Underweight] Onset: 10-01-2022 10-01-2022 Episodic Other screening for suspected conditions (not mental disorders or infectious disease) (4 sources) Decreased vitamin D; Translations: [Other specified abnormal findings of blood chemistry] Onset: 10-01-2022 10-01-2022 Episodic Other skin disorders (3 sources) Skin lesion; Translations: [Disorder of the skin and subcutaneous tissue, unspecified] Onset: 09-26-2018 09-26-2018 Episodic Residual codes; unclassified (4 sources) Hallucinations; Translations: [Hallucinations, unspecified] Onset: 10-01-2022 10-01-2022 Episodic Residual codes; unclassified (7 sources) Forgetful; Translations: [Other general symptoms and signs] Onset: 03-02-2023 04-01-2023 Episodic Residual codes; unclassified (3 sources) History of syncope; Translations: [Personal history of other specified conditions] Onset: 11-10-2021 11-10-2021 Episodic Unclassified (3 sources) Onset: 03-03-2023 03-03-2023 Results Test Name Value Interpretation Reference Range Facility ACETAMINOPHENon 08-26-2022 Acetaminophen [Mass/Vol] ug/mL Critically low 10.0-30.0 [facility] Comment on above: Performed By: #### S ALYC, ETH, ACET, CMP, TSH #### [facility] [address] [place] [address] Dr. Harris Perdomo CBC AUTO DIFFon 08-26-2022 BASO # 0.0 103/ul Normal 0.0-0.1 [facility] Comment on above: Performed By: #### C BC #### [facility] [address] [place] [address] Dr. Harris Perdomo Basophils/100 WBC (Bld) 0.4 % Normal 0.2-2.0 [facility] Comment on above: Performed By: #### C BC #### [facility] [address] [place] [address] Dr. Harris Perdomo EO # 0.0 103/ul Normal 0.0-0.7 [facility] Comment on above: Performed By: #### C BC #### [facility] [address] [place] [address] Dr. Harris Perdomo Eosinophils/100 WBC (Bld) 0.2 % Critically low 0.9-7.0 [facility] Comment on above: Performed By: #### C BC #### [facility] [address] [place] [address] Dr. Harris Perdomo Erythrocyte distribution width (RBC) [Ratio] 12.1 % Normal 11.0-15.0 [facility] Comment on above: Performed By: #### C BC #### [facility] [address] [place] [address] Dr. Harris Perdomo Hematocrit (Bld) [Volume fraction] 39.3 % Normal 36.0-48.0 [facility] Comment on above: Performed By: #### C BC #### [facility] [address] [address] [address] Harris Perdomo Hemoglobin (Bld) [Mass/Vol] 13.3 g/dL Normal 12.0-16.0 [facility] Comment on above: Performed By: #### C BC #### [facility] [address] [place] [address] Dr. Harris Perdomo IG # 0.00 10e3/ul Normal 0.00-0.03 [facility] Comment on above: Performed By: #### C BC #### [facility] [address] [place] [address] Dr. Harris Perdomo IG % 0.0 % Normal 0.0-0.5 [facility] Comment on above: Performed By: #### C BC #### [facility] [address] [place] [address] Dr. Harris Perdomo LYMPH # 0.5 103/ul Critically low 1.2-3.8 [facility] Comment on above: Performed By: #### C BC #### [facility] [address] [place] [address] Dr. Harris Perdomo Lymphocytes/100 WBC (Bld) 10.2 % Critically low 20.5-60.0 [facility] Comment on above: Performed By: #### C BC #### [facility] [address] [place] [address] Dr. Harris Perdomo MANUAL DIFF REQ NO Normal [facility] Comment on above: Performed By: #### C BC #### [facility] [address] [place] [address] Dr. Harris Perdomo MCH (RBC) [Entitic mass] 30.6 pg Normal 26.7-34.0 [facility] Comment on above: Performed By: #### C BC #### [facility] [address] [address] [address] Harris Perdomo MCHC (RBC) [Mass/Vol] 33.8 g/dL Normal 29.9-35.2 [facility] Comment on above: Performed By: #### C BC #### [facility] [address] [address] [address] Harris Perdomo MCV (RBC) [Entitic vol] 90.6 fL Normal 81.0-99.0 [facility] Comment on above: Performed By: #### C BC #### [facility] [address] [place] [address] Dr. Harris Perdomo MONO # 0.3 103/ul Normal 0.3-0.8 [facility] Comment on above: Performed By: #### C BC #### [facility] [address] [place] [address] Dr. Harris Perdomo Monocytes/100 WBC (Bld) 6.2 % Normal 1.7-12.0 [facility] Comment on above: Performed By: #### C BC #### [facility] [address] [place] [address] Dr. Harris Perdomo NEUT # 4.3 103/ul Normal 1.4-6.5 [facility] Comment on above: Performed By: #### C BC #### [facility] [address] [place] [address] Dr. Harris Perdomo Neutrophils/100 WBC (Bld) 83.0 % Critically high 43.0-75.0 [facility] Comment on above: Performed By: #### C BC #### [facility] [address] [place] [address] Dr. Harris Perdomo Platelet mean volume (Bld) [Entitic vol] 8.3 fL Critically low 9.5-13.5 [facility] Comment on above: Performed By: #### C BC #### [facility] [address] [place] [address] Dr. Harris Perdomo PLT 251 103/ul Normal 150-450 [facility] Comment on above: Performed By: #### C BC #### [facility] [address] [address] [address] Harris Perdomo RBC 4.34 106/ul Normal 4.20-5.40 [facility] Comment on above: Performed By: #### C BC #### [facility] [address] [address] [address] Harris Perdomo WBC 5.2 103/ul Normal 4.0-11.0 [facility] Comment on above: Performed By: #### C BC #### [facility] [address] [place] [address] Dr. Harris Perdomo Covid-19 PCR (CVDTB)on 08-15 SARS-CoV-2 (COVID-19) RNA JOSE G+probe Ql (Unsp spec) Not detected Normal NOT DETECTED [facility] Comment on above: Result Comment: When [...] for this test is supported by the [place] of [employer] and [employer] Service's declaration that [...] used). Performed By: #### C VDTBH #### [facility] [address] [place] [address] Dr. Harris Perdomo DRUG SCREEN RAPID (URINE)on 08-26-2022 AMP Negative Normal NEGATIVE [facility] Comment on above: Performed By: #### E RUR, DRUGRPD #### [facility] [address] [place] [address] Dr. Harris Perdomo BAR Negative Normal NEGATIVE [facility] Comment on above: Performed By: #### E RUR, DRUGRPD #### [facility] [address] [address] [address] Harirs Perdomo BUP Negative Normal NEGATIVE [facility] Comment on above: Performed By: #### E RUR, DRUGRPD #### [facility] [address] [address] [address] Harris Perdomo BZO Positive Abnormal NEGATIVE [facility] Comment on above: Performed By: #### E RUR, DRUGRPD #### [facility] [address] [address] [address] Harris Perdomo LAURA Negative Normal NEGATIVE [facility] Comment on above: Performed By: #### E RUR, DRUGRPD #### [facility] [address] [place] [address] Dr. Harris Perdomo CUT-OFFS SEE BELOW Normal [facility] Comment on above: Result Comment: AMP [...] Performed By: #### E RUR, DRUGRPD #### [facility] [address] [place] [address] Dr. Harris Perdomo DRUG CUT HEADER DRUG CLASS TEST SYST EM CUT-OFF CONCENTRATIONS ARE FOLLOWS: Normal [facility] Comment on above: Performed By: #### E RUR, DRUGRPD #### [facility] [address] [address] [address] Harris Perdomo mAMP Negative Normal NEGATIVE [facility] Comment on above: Performed By: #### E RUR, DRUGRPD #### [facility] [address] [place] [address] Dr. Harris Perdomo MTD Negative Normal NEGATIVE [facility] Comment on above: Performed By: #### E RUR, DRUGRPD #### [facility] [address] [place] [address] Dr. Harris Perdomo OPI Negative Normal NEGATIVE [facility] Comment on above: Performed By: #### E RUR, DRUGRPD #### [facility] [address] [place] [address] Dr. Harris Perdomo OXY Negative Normal NEGATIVE [facility] Comment on above: Performed By: #### E RUR, DRUGRPD #### [facility] [address] [place] [address] Dr. Harris Perdomo PCP Negative Normal NEGATIVE [facility] Comment on above: Performed By: #### E RUR, DRUGRPD #### [facility] [address] [place] [address] Dr. Harris Perdomo PPX Negative Normal NEGATIVE [facility] Comment on above: Performed By: #### E RUR, DRUGRPD #### [facility] [address] [place] [address] Dr. Harris Perdomo TCA Negative Normal NEGATIVE [facility] Comment on above: Performed By: #### E RUR, DRUGRPD #### [facility] [address] [place] [address] Dr. Harris Perdomo THC Negative Normal NEGATIVE [facility] Comment on above: Performed By: #### E RUR, DRUGRPD #### [facility] [address] [place] [address] Dr. Harris Perdomo ER URINE PROFILEon 3 Bilirubin Ql (U) Negative Normal NEGATIVE [facility] Comment on above: Performed By: #### E RUR, DRUGRPD #### [facility] [address] [place] [address] Dr. Harris Perdomo Clarity (U) CLEAR Normal CLEAR [facility] Comment on above: Performed By: #### E RUR, DRUGRPD #### [facility] [address] [place] [address] Dr. Harris Perdomo Color (U) LT. YELLOW Normal YELLOW [facility] Comment on above: Performed By: #### E RUR, DRUGRPD #### [facility] [address] [place] [address] Dr. Harris Perdomo ERUAHMora A micrscopic examina tion will be performed if indicated. Normal [facility] Comment on above: Performed By: #### E RUR, DRUGRPD #### [facility] [address] [place] [address] Dr. Harris Perdomo Glucose Ql (U) Negative Normal NEGATIVE [facility] Comment on above: Performed By: #### E RUR, DRUGRPD #### [facility] [address] [place] [address] Dr. Harris Perdomo Hemoglobin Ql (U) Negative Normal NEGATIVE [facility] Comment on above: Performed By: #### E RUR, DRUGRPD #### [facility] [address] [place] [address] Dr. Harris Perdomo Ketones Ql (U) Negative Normal NEGATIVE [facility] Comment on above: Performed By: #### E RUR, DRUGRPD #### [facility] [address] [place] [address] Dr. Harris Perdomo LEUKOCYTES Negative Normal NEGATIVE [facility] Comment on above: Performed By: #### E RUR, DRUGRPD #### [facility] [address] [place] [address] Dr. Harris Perdomo Nitrite Ql (U) Negative Normal NEGATIVE [facility] Comment on above: Performed By: #### E RUR, DRUGRPD #### [facility] [address] [place] [address] Dr. Harris Perdomo pH (U) 6.5 [pH] Normal 5-9 [facility] Comment on above: Performed By: #### E RUR, DRUGRPD #### [facility] [address] [place] [address] Dr. Harris Perdomo SPEC GRAVITY <=1.005 Abnormal 1.005-<=1.02 5 [facility] Comment on above: Performed By: #### E RUR, DRUGRPD #### [facility] [address] [place] [address] Dr. Harris Perdomo UA PROTEIN Negative Normal NEGATIVE/ TRACE [facility] Comment on above: Performed By: #### E RUR, DRUGRPD #### [facility] [address] [place] [address] Dr. Harris Perdomo UR MICRO IND NOT INDICATED Normal [facility] Comment on above: Performed By: #### E RUR, DRUGRPD #### [facility] [address] [place] [address] Dr. Harris Perdomo Urobilinogen Qn (U) 0.2 {Baylee'U}/dL Normal 0.2 - 1. 0 [facility] Comment on above: Performed By: #### E RUR, DRUGRPD #### [facility] [address] [place] [address] Dr. Harris Perdomo ETHANOL (BLD ALC)on 08-27-19 23 ALC NOTE NOTE: 80 mg/dl is th e legal limit for a blood alcohol level Normal [facility] Comment on above: Performed By: #### S ALYC, ETH, ACET, CMP, TSH #### [facility] [address] [place] [address] Dr. Harris Perdomo Ethanol [Mass/Vol] mg/dL Normal [facility] Comment on above: Performed By: #### S ALYC, ETH, ACET, CMP, TSH #### [facility] [address] [place] [address] Dr. Harris Perdomo PROF 14(COMP METB)on 023 Albumin [Mass/Vol] 3.8 g/dL Normal 3.4-5.0 [facility] Comment on above: Performed By: #### S ALYC, ETH, ACET, CMP, TSH #### [facility] [address] [place] [address] Dr. Harris Perdomo Albumin/Globulin [Mass ratio] 1.2 {ratio} Normal [facility] Comment on above: Performed By: #### S ALYC, ETH, ACET, CMP, TSH #### [facility] [address] [address] [address] Harris Perdomo ALP [Catalytic activity/Vol] 103 U/L Normal 46-116 [facility] Comment on above: Performed By: #### S ALYC, ETH, ACET, CMP, TSH #### [facility] [address] [address] [address] Harris Perdomo ALT [Catalytic activity/Vol] 6 U/L Critically low 14-59 [facility] Comment on above: Performed By: #### S ALYC, ETH, ACET, CMP, TSH #### [facility] [address] [place] [address] Dr. Harris Perdomo Anion gap [Moles/Vol] 12.3 mmol/L Normal [facility] Comment on above: Performed By: #### S ALYC, ETH, ACET, CMP, TSH #### [facility] [address] [place] [address] Dr. Harris Perdomo AST [Catalytic activity/Vol] 14 U/L Critically low 15-37 [facility] Comment on above: Performed By: #### S ALYC, ETH, ACET, CMP, TSH #### [facility] [address] [address] [address] Harris Perdomo Bilirubin [Mass/Vol] 0.4 mg/dL Normal 0.2-1.0 [facility] Comment on above: Performed By: #### S ALYC, ETH, ACET, CMP, TSH #### [facility] [address] [place] [address] Dr. Harris Perdomo Calcium [Mass/Vol] 9.1 mg/dL Normal 8.5-10.1 [facility] Comment on above: Performed By: #### S ALYC, ETH, ACET, CMP, TSH #### [facility] [address] [place] [address] Dr. Harris Perdomo Chloride [Moles/Vol] 106 mmol/L Normal 98-107 [facility] Comment on above: Performed By: #### S ALYC, ETH, ACET, CMP, TSH #### [facility] [address] [place] [address] Dr. Harris Perdomo CO2 [Moles/Vol] 28.7 mmol/L Normal 21.0-32.0 [facility] Comment on above: Performed By: #### S ALYC, ETH, ACET, CMP, TSH #### [facility] [address] [address] [address] Harris Perdomo Creatinine [Mass/Vol] 0.65 mg/dL Normal 0.55-1.02 [facility] Comment on above: Performed By: #### S ALYC, ETH, ACET, CMP, TSH #### [facility] [address] [address] [address] Harris Perdomo EGFR-AF [place] >60 Normal >=60 [facility] Comment on above: Performed By: #### S ALYC, ETH, ACET, CMP, TSH #### [facility] [address] [place] [address] Dr. Harris Perdomo EGFR-NON AF [place] >60 Normal >=60 [facility] Comment on above: Performed By: #### S ALYC, ETH, ACET, CMP, TSH #### [facility] [address] [address] [address] Harris Perdomo Globulin (S) [Mass/Vol] 3.2 g/dL Normal [facility] Comment on above: Performed By: #### S ALYC, ETH, ACET, CMP, TSH #### [facility] [address] [address] [address] Harris Perdomo Glucose [Mass/Vol] 99 mg/dL Normal 74-106 [facility] Comment on above: Performed By: #### S ALYC, ETH, ACET, CMP, TSH #### [facility] [address] [address] [address] Harris Perdomo Potassium [Moles/Vol] 4.0 mmol/L Normal 3.5-5.1 [facility] Comment on above: Performed By: #### S ALYC, ETH, ACET, CMP, TSH #### [facility] [address] [address] [address] Harris Perdomo Protein [Mass/Vol] 7.0 g/dL Normal 6.4-8.2 [facility] Comment on above: Performed By: #### S ALYC, ETH, ACET, CMP, TSH #### [facility] [address] [address] [address] Harris Perdomo Sodium [Moles/Vol] 143 mmol/L Normal 136-145 [facility] Comment on above: Performed By: #### S ALYC, ETH, ACET, CMP, TSH #### [facility] [address] [address] [address] Harris Perdomo Urea nitrogen [Mass/Vol] 20.0 mg/dL Critically high 7.0-18.0 [facility] Comment on above: Performed By: #### S ALYC, ETH, ACET, CMP, TSH #### [facility] [address] [place] [address] Dr. Harris Perdomo Urea nitrogen/Creatinine [Mass ratio] 30.8 mg/mg Normal [facility] Comment on above: Performed By: #### S ALYC, ETH, ACET, CMP, TSH #### [facility] [address] [place] [address] Dr. Harris Perdomo SALICYLATEon 08-26-2022 SALICYLATE <2.8 Normal <=19.9 [facility] Comment on above: Performed By: #### S ALYC, ETH, ACET, CMP, TSH #### [facility] [address] [place] [address] Dr. Harris Perdomo TSHon 08-26-2022 TSH 1.224 uIU/mL Normal 0.358-3.740 [facility] Comment on above: Performed By: #### S ALYC, ETH, ACET, CMP, TSH #### [facility] [address] [address] [address] Harris Perdomo XR Knee 3 Views Lefton 02-09 XR Knee 3 Views Left FINDINGS: Mild bilateral patellofemoral joint space loss. No cortical or subchondral fracture. No significant osteophyte formation. Small left sided patellofemoral effusion. IMPRESSION: 1. 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 Report reported and signed by Kieran Caputo on 02/09/2022 1429 Normal [facility] XR Knee 3 Views Righton 01-16 XR Knee 3 Views Right Please see left knee report. Report reported and signed by Kieran Travis Caputo on 02/09/2022 1430 Normal [facility] XR Humerus Righton XR Humerus Right HISTORY: [...] by Kieran Caputo on 09/11/2021 1054 Normal [facility] Lipid Panelon 05-14-2021 Cholesterol [Mass/Vol] 199 mg/dL Normal 125-200 [facility] Comment on above: Result Comment: Low risk < 200mg/dL Borderline risk 201-239 mg/dl High risk > or equal to 240 Performed By: #### L IPD #### [facility] [address] [place], [place] [id number] Cholesterol in HDL [Mass/Vol] 51 mg/dL Normal >40 [facility] Comment on above: Result Comment: High Cardiovascular Risk HDL <40 mg/dL Low Cardiovascular Risk HDL > or equal to 60 mg/dl Performed By: #### L IPD #### [facility] [address], [place] [id number] Cholesterol in LDL [Mass/Vol] 112 mg/dL Normal [facility] Comment on above: Result Comment: LDL ATP III CLASSIFICATION LDL less than 100 mg/dl Optimal LDL 100-129 mg/dl Near or above optimal LDL 130-159 Borderline high LDL 160-189 High LDL greater than 189 mg/dl Very High Performed By: #### L IPD #### [facility] [address] [id number] Cholesterol in VLDL [Mass/Vol] 36 mg/dL Normal [facility] Comment on above: Performed By: #### L IPD #### [facility] [address] [place], [place] [id number] Cholesterol.total/C holesterol in HDL [Mass ratio] 4 {ratio} Normal [facility] Comment on above: Performed By: #### L IPD #### [facility] [address] [place], [place] [id number] Triglyceride [Mass/Vol] 178 mg/dL High 30-150 [facility] Comment on above: Result Comment: TRIG ATPIII CLASSIFICATIONS TRIG less than 150 mg/dl Normal TRIG 150-199 mg/dl Borderline High TRIG 200-500 mg/dl High TRIG greather than 500 mg/dl Very High Performed By: #### L IPD #### [facility] [address], [place] [id number] Q - QUESTASSURED(TM) 25-OH V IT D(D2D3)LC/MS/MSon 05-14-2021 VITAMIN D, 25-OH, D2 <4 Normal [facility] Comment on above: Order Comment: [facility] Testing performed at: [employer] [facility], [address], [place], [place], , Night Baker: Andrey Lott M.D.,PhD [facility] Collection Date/Time: [facility] Results Received Date/Time: [facility] Reported Date/Time: Result Comment: This test was developed and its analytical performance characteristics have been determined by [employer]. It has not been cleared or approved by the U.S. Food and Drug Administration. This assay has been validated pursuant to the CLIA regulations and is used for clinical purposes. Performed By: #### [id number] #### [facility] [address] [place] [address] VITAMIN D, 25-OH, D3 51 ng/mL Normal [facility] Comment on above: Order Comment: [facility] Testing performed at: [employer] [facility], [address], [place], [place], , Night Baker: Andrey Lott M.D.,PhD [facility] Collection Date/Time: [id number] [facility] Results Received Date/Time: [facility] Reported Date/Time: Result Comment: This test was developed and its analytical performance characteristics have been determined by [employer] [place], [place]. It has not been cleared or approved by the U.S. Food and Drug Administration. This assay has been validated pursuant to the CLIA regulations and is used for clinical purposes. Performed By: #### [id number] #### [facility] [address] [place], [place] VITAMIN D, 25-OH, TOTAL 51 ng/mL Normal 30-100 [facility] Comment on above: Order Comment: [facility] Testing performed at: [facility], [employer], [address], [place], [place], , Night Baker: Andrey Lott M.D.,PhD [facility] Collection Date/Time: [facility] Results Received Date/Time: [facility] Reported Date/Time: Result Comment: Cherelle min [...] 2011;96(7):1911-30. For additional information, please refer to http://education.[employer]/faq/MBH815 (This link is being provided for informational/ educational purposes only.) Performed By: #### [id number] #### [facility] [address] [place] [address] SCREENING MAMMOGRAM W/MAKENNA, BILATERAL*on 05-14-2021 SCREENING MAMMOGRAM [...] VERY IMPORTANT TO YOUR HEALTH. THE CURRENT [place] [employer] GUIDELINES RECOMMENDS ANNUAL MAMMOGRAPHY BEGINNING AT AGE 40. THIS FACILITY USES A REMINDER SYSTEM TO ENSURE ALL PATIENTS RECEIVE REMINDER NOTIFICATIONS AT THE APPROPRIATE TIME BASED ON THE RECOMMENDATIONS OF THIS EXAM. Report reported and signed by Kieran Caputo on 05/14/2021 1337 Normal [facility] Techn[facility] CNOVSPon 02-04-2017 CNOVSP Visit (SP) Office ([facility]) LISA MÁRQUEZ ([id number]) 1955 [facility] Time Provider Department02/04/17 2:00 PM RICARDO CARRASCO HEMACL During your visit today, we recorded the following information about you: Temperature Pulse Respiration Blood pressure 98 degrees 85/minute 18/minute 115/69 Weight Height 44 kg 1.549 mMINDY LUTHER DOUGHERTY PA-C 02/04/2017 1:50 PM SignedPatient: Mirian Elizabeth Alma DeliarDOB: 1955Race: Katya Complaint:Endometrial CancerHPI: Mirian is here for follow up. She had endometrial cancer diagnosed of9208 and treated with chemotherapy and radiation. She has been feeling welland sees Dr. 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 oNrwood has her onNeurontin. She is also on Sinemet and Requip for Parkinsonism. She has left armtremor and left leg cramps.She is following with periodic ultrasounds of her thyroid with Dr. Penaloza for athyroid nodule as well.She also had ANDquot;something on her liverANDquot; and has had 2 CTs to [place]this [place] and she states it has been stable.Current [...] tremor to left handImaging Studies: CXR at [facility] 01/19/2017 was negativeASSESSMENT/PLAN:1 . 182.0 Endometrial cancerShe has no evidence of disease recurrence. She is now 12 years out from [facility] and she will follow up with her PCP for yearly chest x-rays. SALLY FONSECA-CReferring Provider: RICARDO CARRASCO [[id number]]Allergies As of Date: 02/04/2017(No Known Allergies)Date Reviewed: [...] Pharmacy METAXALONE 800 MG TABLET >> [place] 02/04/2017 1:31 PM >> ASCENCION AugustFeb 04, 2017 1:31 PM Received from: External Pharmacy ROPINIROLE 2 MG TABLET >> [place] 02/04/2017 1:31 PM >> ASCENCION AugustFeb 04, 2017 1:31 PM Received from: External Pharmacy ROPINIROLE 1 MG TABLET >> [place] 02/04/2017 1:31 PM >> ASCENCION AugustFeb 04, 2017 1:31 PM Received from: External PharmacyProblem List As Of Date 02/04/2017 Noted Resolved Endometrial cancer [C54.1] INVALID FOR* Personal history of malignant neoplasm of femal*INVALID FOR* 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 182.0 Endometrial cancerShe has no evidence of disease recurrence. She is now 12 years out fromher cancer and she will follow up with her PCP for yearly chest x-rays. MIS DOUGHERTY PA-C Normal [facility] Remote CBCDIF (for [facility] use o nly)on 02-04-2017 Abs Baso 0.01 k/uL Normal 0.00-0.10 [facility] Abs [place] 0.27 k/uL Normal 0.00-0.86 [facility] Abs Neut 2.36 k/uL Normal 1.45-7.50 [facility] Basophils/100 WBC Auto (Bld) 0.3 % Normal [facility] Eosinophils 0.03 10*3/uL Normal 0.00-0.45 [facility] Eosinophils/100 leukocytes 0.9 % Normal [facility] Erythrocyte distribution width Auto Ratio (RBC) 12.8 % Normal 11.5-15.0 [facility] Erythrocytes (RBC) 4.14 10*6/uL Normal 3.90-5.20 [facility] Hematocrit (HCT) 37.9 % Normal 36.0-46.0 [facility] Hemoglobin mass conc (Bld) 12.6 g/dL Normal 11.5-15.5 [facility] Lymphocytes 0.76 10*3/uL Low 1.00-4.00 [facility] Lymphocytes/100 leukocytes 22.2 % Normal [facility] MCH 30.4 pG Normal 26.0-34.0 [facility] MCHC mass conc (RBC) 33.2 g/dL Normal 30.5-36.0 [facility] MCV 91.5 fL Normal 80.0-100.0 [facility] Monocytes/100 leukocytes 7.9 % Normal [facility] Neutrophils/100 WBC Auto (Bld) 68.7 % Normal [facility] Platelet mean volume (PMV) 8.7 fL Low 9.0-12.7 [facility] Platelets 198 10*3/uL Normal 150-400 [facility] WBC (Leukocytes) 3.43 10*3/uL Low 3.70-11.00 [facility] Vital Signs Date Time Vital Sign Value Performing Clinician Facility 08-18-2023 09:52-0400 Diastolic blood pressure 73 mm[Hg] Eve Verhoff PA-C Work Phone: [facility] 08-18-2023 09:52-0400 Respiratory rate 18 /min Eve Verhoff PA-C Work Phone: [facility] 08-18-2023 09:52-0400 SaO2% (BldA) [Mass fraction] 96 % Eve Verhoff PA-C Work Phone: [facility] 08-18-2023 09:52-0400 Systolic blood pressure 123 mm[Hg] Eve Verhoff PA-C Work Phone: [facility] 07-21-2023 10:44-0500 Body height 154.9 cm Eve Verhoff PA-C Work Phone: [facility] 07-21-2023 10:44-0500 Body mass index (BMI) [Ratio] 21.92 kg/m2 Eve Verhoff PA-C Work Phone: [facility] 07-21-2023 10:44-0500 Body weight 52.62 kg Eve Verhoff PA-C Work Phone: [facility] 07-21-2023 10:44-0500 Diastolic blood pressure 63 mm[Hg] Eve Verhoff PA-C Work Phone: [facility] 07-21-2023 10:44-0500 Heart rate 79 /min Eve Verhoff PA-C Work Phone: [facility] 07-21-2023 10:44-0500 Respiratory rate 18 /min Eve Verhoff PA-C Work Phone: [facility] 07-21-2023 10:44-0500 SaO2% (BldA) [Mass fraction] 97 % Eve Verhoff PA-C Work Phone: [facility] 07-21-2023 10:44-0500 Systolic blood pressure 119 mm[Hg] Eve Verhoff PA-C Work Phone: [facility] 07-01-2023 13:36-0500 Body height 154.9 cm Saira Proctor BILLING MACHINE OPERATOR Work Phone: [facility] 07-01-2023 13:36-0500 Body mass index (BMI) [Ratio] 21.92 kg/m2 Saira Proctor BILLING MACHINE OPERATOR Work Phone: [facility] 07-01-2023 13:36-0500 Body weight 52.62 kg Saira Proctor BILLING MACHINE OPERATOR Work Phone: [facility] 07-01-2023 13:36-0500 Diastolic blood pressure 82 mm[Hg] Saira Proctor BILLING MACHINE OPERATOR Work Phone: [facility] 07-01-2023 13:36-0500 Heart rate 78 /min Saira Proctor BILLING MACHINE OPERATOR Work Phone: [facility] 07-01-2023 13:36-0500 Respiratory rate 18 /min Saira Proctor BILLING MACHINE OPERATOR Work Phone: [facility] 07-01-2023 13:36-0500 SaO2% (BldA) [Mass fraction] 98 % Saira Proctor BILLING MACHINE OPERATOR Work Phone: [facility] 07-01-2023 13:36-0500 Systolic blood pressure 128 mm[Hg] Saira Proctor BILLING MACHINE OPERATOR Work Phone: [facility] Healthcare Encounters Encounter Date Encounter Type Care Provider Facility Start: 08-18-2023 End: 08-18-2023 ambulatory EVE SALAS [facility] Start: 08-18-2023 End: 08-18-2023 Office outpatient visit 25 minutes Eve ZAVALA-C Work Phone: [facility] Comment on above: Lumbar spondylosis; Bilateral leg cramps Start: 08-10-2023 End: 08-10-2023 ambulatory SAIRA PROCTOR Not Available Start: 07-29-2023 Telephone encounter Dana Kamara [facility] Start: 07-27-2023 End: 07-27-2023 ambulatory SHASHI Natarajan CHERYLE-NOSSEK Not Available Start: 07-21-2023 End: 07-21-2023 ambulatory EVE Hill KATIUSKATESS [facility] Start: 07-21-2023 End: 07-21-2023 Office outpatient new 30 minutes Eve Salas PA-C Work Phone: [facility] Comment on above: Lumbar spondylosis ( Primary Dx); Bilateral leg cramps Start: 07-01-2023 End: 07-01-2023 ambulatory SAIRA PROCTOR Not Available Start: 07-01-2023 Bamboo flowsheet Saira Proctor BILLING MACHINE OPERATOR Work Phone: [facility] Start: 07-01-2023 Bamboo flowsheet Saira Proctor BILLING MACHINE OPERATOR Work Phone: [facility] Start: 07-01-2023 Telephone encounter Saira maldonado BILLING MACHINE OPERATOR Work Phone: [facility] Comment on above: Medication Question Start: 07-01-2023 End: 07-01-2023 Office outpatient visit 15 minutes Saira Proctor BILLING MACHINE OPERATOR Work Phone: [facility] Comment on above: Secondary parkinsoni sm, unspecified secondary Parkinsonism type (CMS/HCC) (Primary Dx); Dystonia; Muscle cramping Start: 06-01-2023 End: 06-01-2023 ambulatory SHASHI Natarajan CHERYLE-NOSSEK Not Available Start: 05-13-2023 End: 05-13-2023 ambulatory SAIRA PROCTOR Not Available Start: 04-15-2023 End: 04-15-2023 ambulatory MOHIT EDDY Not Available Start: 04-12-2023 End: 04-12-2023 ambulatory SHASHI Delgado CHERYLE-NOSSEK Not Available Start: 04-01-2023 End: 04-01-2023 ambulatory SAIRA PROCTOR Not Available Start: 08-26-2022 End: 08-27-[address] FRANKIE FIERRO . Facility: Start: 02-04-2017 End: 02-05-2017 Ambulatory RICARDO CARRASCO [facility] Procedures Date Procedure Procedure Detail Performing Clinician Start: 10-30-2022 Adult depression scr eening assessment Eve Salas PA-C Work Phone: Start: 10-15-2022 Mammography Saira Proctor BILLING MACHINE OPERATOR Work Phone: Start: 10-01-2022 H/O: hysterectomy H/O: hysterectomy Saira Proctor BILLING MACHINE OPERATOR Work Phone: Start: 10-08-2017 Colonoscopy Saira Proctor BILLING MACHINE OPERATOR Work Phone: Plan of Treatment Date Care Activity Detail Author Start: 10-09-2027 Screening for malign ant neoplasm of colon [facility] Start: 08-17-2024 Tobacco Screening Tobacco Screening [facility] Start: 07-20-2024 Adult BMI Screening Adult BMI Screen ing [facility] Start: 07-20-2024 Tobacco Screening Tobacco Screening [facility] Start: 01-16-2024 Influenza vaccination Influenza Vacc ine [facility] Start: 01-07-2024 Medicare Annual Wellness (AWV) Medicare Annual Wellness (AWV) [facility] Start: 10-31-2023 Depression Screening Depression Scre ening [facility] Start: 10-29-2023 End: 10-29-2023 Patient encounter procedure 10/29/2023 11:30 AM EDT Office Visit [facility] [address] [facility] [place] [address] Arpan Delacruz MD [address] [place] [address], [address] [phone] [facility] Start: 10-16-2023 Screening for malign ant neoplasm of breast Mammogram [facility] Start: 10-01-2023 End: 10-01-2023 Patient encounter procedure 10/01/2023 12:00 PM EDT Office Visit [facility] [address] [place] [address] Arpan Delacruz MD [address] [place] [address], [address] [place] [phone] [facility] Start: 09-29-2023 End: 09-29-2023 Patient encounter procedure 09/29/2023 9:45 AM EDT Office Visit [facility] [address] [place] [address] Eve Salas PA-C [address], [address] [facility] [address] [facility] Start: 08-18-2023 End: 08-18-2023 Patient encounter procedure 08/18/2023 10:00 AM EDT Office Visit [facility] [address] [place] [id number] Eve Salas PA-C [address], [address] [place] [address], [place] [address] [facility] Start: 08-12-2023 End: 08-12-2023 Patient encounter procedure 08/12/2023 11:00 AM EDT Office Visit [facility] [address] [place] [facility] [place] [phone] Saira Proctor NP [address] [place] [address] [facility] Start: 07-27-2023 End: 07-27-2023 Patient encounter procedure 07/27/2023 11:00 AM EDT Office Visit [facility] [address] [place] [address] Shashi Servin APRN-CRYSTAL FINISHER [address] [place] [address] [facility] Start: 07-19-2023 End: 07-19-2023 Patient encounter procedure 07/19/2023 2:00 PM EST Office Visit [facility] [address] [place] [phone] Mohit Eddy, DPM [address] [place] [address] [facility] Start: 07-01-2023 End: 07-01-2023 Patient encounter procedure 07/01/2023 1:30 PM EST Office Visit [facility] [address] [place] [phone] Saira Proctor NP [address] [place], [place] [phone] Arrived [facility] Comment on above: Arrived Start: 01-15-2023 COVID-19 Vaccine ( season) COVID-19 Vaccine () [facility] Start: 11-05-2019 Fall Risk Screening Fall Risk Screen [facility] Start: 1973 DTaP,Tdap and Td Vaccines (1 - Tdap) DTaP,Tdap and Td Vaccines (1 - Tdap) [facility] Start: 1955 Medicare Annual Wellness Visit Medicare Annual Wellness Visit [facility] Start: 1955 Screening for malign ant neoplasm of colon [facility] Immunizations Immunization Date Immunization Notes Care Provider Fa [facility] 05-13-2023 Influenza, High-dose Seasonal, Quadrivalent, Preservative Free Saira Proctor NP Work Phone: [facility] 05-13-2023 influenza virus vacc ine, unspecified formulation Eve Salas PA-C Work Phone: [facility] 01-06-2023 pneumococcal conjuga te vaccine, 13 valent Saira Proctor BILLING MACHINE OPERATOR Work Phone: [facility] 04-16-2022 Moderna SARS-CoV-2 50mcg/0.5mL Booster Saira Proctor NP Work Phone: [facility] 02-09-2022 influenza, injectabl e, quadrivalent, preservative free Saira Proctor BILLING MACHINE OPERATOR Work Phone: [facility] 04-04-2021 Pfizer Purple Cap SARS-CoV-2 Vaccination Saira Proctor BILLING MACHINE OPERATOR Work Phone: [facility] 02-12-2021 Influenza, High-dose Seasonal, Quadrivalent, Preservative Free Saira Proctor BILLING MACHINE OPERATOR Work Phone: [facility] 05-02-2020 influenza, high dose seasonal, preservative-free Eve Verhoff PA-C Work Phone: [facility] 05-02-2020 Influenza, High-dose Seasonal, Quadrivalent, Preservative Free Saira Proctor BILLING MACHINE OPERATOR Work Phone: [facility] 05-02-2020 pneumococcal polysaccharide vaccine, 23 valent Saira Proctor BILLING MACHINE OPERATOR Work Phone: [facility] 09-30-2019 zoster vaccine recombinant Saira Proctor BILLING MACHINE OPERATOR Work Phone: [facility] 07-28-2019 zoster vaccine recombinant Saira Proctor BILLING MACHINE OPERATOR Work Phone: [facility] 03-23-2019 influenza, injectabl e, quadrivalent, contains preservative Eve Verhoff PA-C Work Phone: [facility] 03-23-2019 influenza, injectabl e, quadrivalent, preservative free Saira Proctor BILLING MACHINE OPERATOR Work Phone: [facility] 03-30-2018 influenza, injectabl e, quadrivalent, contains preservative Eve Verhoff PA-C Work Phone: [facility] 03-30-2018 influenza, injectabl e, quadrivalent, preservative free Saira Proctor BILLING MACHINE OPERATOR Work Phone: [facility] 03-11-2017 influenza, injectabl e, quadrivalent, contains preservative Eve Verhoff PA-C Work Phone: [facility] 03-11-2017 influenza, injectabl e, quadrivalent, preservative free Saira Proctor BILLING MACHINE OPERATOR Work Phone: [facility] 02-20-2016 influenza, injectabl e, quadrivalent, preservative free Saira Proctor BILLING MACHINE OPERATOR Work Phone: [facility] Payers Date Payer Category Payer Medicare [id number] 2019 Unknown [id number] 1959 Medicare [id number] 1959 Unknown [id number] 1954 Unknown [id number] 2.16.84 [id number] 1954 Unknown [id number] 2.16.84 [id number] 1954 Unknown [id number] 2.16.84 [id number] 1954 Unknown [id number] 2.16.84 [id number] 1954 Unknown [id number] 2.16.84 [id number] 1954 Unknown [id number] 2.16.840 .[id number] 1954 Unknown [id number] 2.16.840 .[id number] 1954 Unknown [id number] 2.16.840 .[id number] 1954 Unknown [id number] 2.16.840 .[id number] 1954 Unknown [id number] 2.16.8 [id number] 1954 Unknown [id number] 2.16.8 [id number] Social History Date Type Detail Facility Start: 03-13-2022 End: 09-26-2022 Tobacco smoking status NHIS Never smoked tobacco [facility] Start: 03-13-2022 End: 09-26-2022 Tobacco use and exposure Smokeless tobacco non-user [facility] Start: 06-01-2023 End: 07-01-2023 Alcohol intake Ex-drinker (finding) [facility] Start: 06-04-2020 End: 10-05-2022 History of Social function [facility] Start: 06-04-2020 End: 10-05-2022 Alcohol Use Disorder Identification Test - Consumption [AUDIT-C] [facility] How often to you hav e a drink containing alcohol? Never [facility] How many standard dr inks containing alcohol do you have on a typical day? Patient does not drink [facility] Start: 04-14-2023 Alcohol Comment none, Caffeine intake: none [facility] Start: 1955 Sex Assigned At Not on file [facility] Start: 07-21-2023 End: 08-18-2023 Alcohol intake Current non-drinker of alcohol (finding) [facility] Medical Equipment Procedure Code Equipment Code Equipment Origin al Text Equipment Identifier Dates Cement Bn - [id number] Start: 07-10-2022 Nail Im 170mm 11 mm 130d Cnn Tfn-Adv Lat Rlf Cut Ti Niobium - Sna - [id number] Start: 09-14-2021 Blade Im Nl Au 9 0mm 10.35mm Tfn-Adv Hlcl Fem Prox Ti Niobium - Sna - [id number] Start: 09-14-2021 Screw Bn 32mm 5m m 4.3mm St Lck Strdr Blnt Tip Ti T25 Ft Strl - Sna - [id number] Start: 09-14-2021 Goals Date Patient Goal Desired Activity /State Personal health goal Comment on above: Formatting of this n ote might be different from the original. Evaluation of progress towards goal: Safe dc transition to SNF for rehab. Personal health goal Comment on above: Formatting of this n ote might be different from the original. Evaluation of progress towards goal: Patient to return home with C v IPR, pending PT/OT evaluation and medical clearance Clinical Notes 09-11-2021 to 08-18-2023 Eve Salas PA-C - 08/18/2023 10:00 AM EDTAddendum Note - Eve Salas PA-C - 08/18/2023 10:00 AM EDTAddendum Note - Eve Salas PA-C - 08/18/2023 10:00 AM EDT Note Date & Type Note Facility 08-18-2023 History of Presen t illness Narrative [facility] [address] [place] [address] Patient: Mirian Márquez Sex: female : 1955 Age: 67 y.o. PCP: Shea Vogel MD 08/18/2023 Mirian Márquez is here for a(n) follow up after increasing Gabapentin to 600mg TID. This dose was too strong and patient decreased to 400mg TID . Chief Complaint Patient presents with Back Pain HPI: PT in past at [facility] (where she currently lives) which made her pain worse. Pt unsure of how many sessions she completed but states quite a few and was doing until June. Back Pain This is a chronic problem. The current episode started more than 1 year ago. The problem occurs intermittently. The problem has been gradually worsening since onset. The pain is present in the lumbar spine and sacro-iliac. Quality: just hurts Radiates to: bilateral hips. The pain is at a severity of 8/10 (8/10 with activity; 0/10 with sitting). The pain is severe. The pain is The same all the time. The symptoms are aggravated by twisting, standing, stress, position, coughing and bending. Associated symptoms include leg pain (leg cramps and tingling, not necessarily pain), numbness (BLE) and tingling (BLE). Pertinent negatives include no fever. She has tried home exercises, bed rest and muscle relaxant (Baclofen, Tylenol, Flexeril, Gabapentin with mild relief) for the symptoms. Leg Pain The incident occurred more than 1 week ago (few years). There was no injury mechanism. The pain is present in the left ankle, left heel, left foot, left toes, right ankle, right heel, right foot and right toes (right below the knees down to toes bilaterally posteriorly). The quality of the pain is described as cramping (tighness). The pain is at a severity of 5/10 (fluctuates depending on activity). The pain is moderate. The pain has been Fluctuating (depends on activity) since onset. Associated symptoms include an inability to bear weight (BLE), muscle weakness (BLE), numbness (BLE) and tingling (BLE). Associated symptoms comments: Pt arrived to [facility] in wheelchair. She reports no foreign bodies present. The symptoms are aggravated by weight bearing and movement. She has tried acetaminophen, rest, elevation and ice (Baclofen, Tylenol, Flexeril, Gabapentin currently w/ mild relief; ice w/ no relief; bike peddlar exercised worsened;) for the symptoms. The effect of pain on patient's ADLS: Moderate Impairment. Past Medical History: Diagnosis Date Anemia Back pain Depression Endometrial cancer ([facility]) 2005 Idiopathic hypotension Left atrial enlargement Low back pain Neck pain Osteoporosis Parkinsonism (CMS-HCC) Shaking Left Hand Shingles Skin carcinoma Visual impairment Past Surgical History: Procedure Laterality Date AUGMENTATION VERTEBRAL KYPHOPLASTY SPINE L 1 N/A 07/10/2022 Performed by Emmanuel Dela Cruz MD at [facility] BREAST BIOPSY 2004 stereotactic benign COLONOSCOPY N/A 10/08/2017 Performed by Sedrick Huizar MD at [facility] HYSTERECTOMY 05/24/2004 [facility] in [place], [place] INSERTION INTRAMEDULLARY TROCHANTERIC FIXATION NAIL HIP Left 09/14/2021 Performed by Joshua Ramos MD at [facility] LASER TRABECULOPLASTY Right 02/24/2019 SLT 360 OD (skipping narrow areas) JCB TUBAL LIGATION 2000 Allergies Allergen Reactions Wellbutrin [Bupropion Hcl] Hallucinations Family History Problem Relation Age of Onset Arthritis Mother Heart disease Mother Hypertension Mother Kidney disease Mother Breast cancer Neg Hx Social History Socioeconomic History Marital status: Spouse name: Not on file Number of children: Not on file Years of education: Not on file Highest education level: Not on file Occupational History Not on file Tobacco Use Smoking status: Never Smokeless tobacco: Never Vaping Use Vaping Use: Never used Substance and Sexual Activity Alcohol use: No Drug use: No Sexual activity: Defer Other Topics Concern Caffeine Use Yes Social History Narrative Not on file Social Determinants of Health Financial Resource Strain: Not on file Food Insecurity: No Food Insecurity (08/18/2023) Hunger Screening Food Insecurity - Worry: Never True Food Insecurity - Inability: Never True Transportation Needs: Not on file Physical Activity: Not on file Stress: Not on file Social Connections: Not on file Interpersonal Safety: Not on file Housing Instability: Not on file Review of Systems Constitutional: Negative for chills and fever. HENT: Negative. Eyes: Negative. Respiratory: Negative. Cardiovascular: Negative. Gastrointestinal: Negative. Endocrine: Negative. Genitourinary: Negative. Musculoskeletal: Positive for back pain. Skin: Negative. Neurological: Positive for tingling (BLE) and numbness (BLE). Vital Signs: BP 123/73 (BP Site: Right Arm, BP Postition: Sitting) Resp 18 SpO2 96% Physical Exam: GENERAL - Healthy patient that appears stated age. HEENT - Normocephalic / Atraumatic, Extraoccular movements intact, trachea midline, thyroid within normal limits. CV - pulse regular, Warm extremities with appropriate color of nailbeds. RESP - No obvious wheezing, No Shortness of Breath, No overexertion response to exam maneuvers. COORDINATION - remains intact. PSYCH - Alert and Oriented x4, Attentive and appropriate, constitutionally normal, displays normal mood and affect per situation, answered questions appropriately during examination, demonstrated appropriate attention during discussion, demonstrated appropriate cognitive reasoning and understanding of the medical condition by asking appropriate questions regarding the diagnosis and risks/benefits/alternatives of treatment modalities. No obvious deficits in memory, reasoning, or intellect. Lumbar: SKIN - No rashes or bruising in the area of the patient s pain. LYMPH NODES - demonstrate no obvious enlargement. EXTREMITIES - Lower extremities are warm, with minimal edema and palpable pulses. Tenderness to palpation noted in the lumbar spine and paraspinal musculature. Pain is elicited with flexion, extension, and lateral rotation of the lumbar spine. Range of motion is diminished with these motions due to pain. Facet palpation is noted to be painful and facet loading maneuvers elicit pain that is concordant with the patient s normal pain complaints. Some muscle spasm is noted in the overlying musculature. STRENGTH - noted to be 5 out of 5 all muscle groups bilateral lower extremities including muscles involving hip flexion and abduction, knee flexion and extension, as well as foot dorsiflexion and plantarflexion. No notable atrophy, fasciculations or spasm. SENSORY - No notable sensory deficits in the bilateral lower extremities to touch or pinprick in all dermatomal distributions. Straight Leg Raise is negative bilaterally. Gait is antalgic and assisted with ambulatory aid(s): W/C. Assessment/Treatment Plan: Mirian was seen today for back pain. Diagnoses and all orders for this visit: Lumbar spondylosis - pregabalin (LYRICA) 50 mg capsule; Take 1 capsule (50 mg total) by mouth in the morning and 1 capsule (50 mg total) before bedtime. Bilateral leg cramps - pregabalin (LYRICA) 50 mg capsule; Take 1 capsule (50 mg total) by mouth in the morning and 1 capsule (50 mg total) before bedtime. Wean off Gabapentin as instructed and begin Lyrica 50 mg BID With Regard to medication management, it is felt that the patient would benefit from the changes mentioned above. This should provide symptomatic pain relief as part of the comprehensive pain management strategy outlined. Risks, Benefits, Side effects, and possible interactions of these medications were reviewed and the medication agreement has been discussed, agreed upon, and signed. The patient understands compliance concerns and the requirement of pill counts and drug screens while taking medications prescribed by this clinic. Follow up 6 weeks The medications I have prescribed have been reviewed for medication interactions/contraindications and/or for upcoming procedures: continue current medication regimen without any changes. DISCUSSION: Treatment options discussed with patient and all questions answered to patient's satisfaction. Discussed the rules and regulations surrounding prescription of opioids and compliance at length. Failure to follow the rules and regulation will result in tapering and discontinuation of medications if applicable. The patient has been instructed as to the type of medication prescribed along with directions for use. Potential side effects have been discussed, along with risks and benefits of taking this medication. (S)he was instructed as to what to do if (s)he experiences side effects, including when to discontinue the medication. (S)he was advised to call this office in this event. Also discussed at length safety and security of RX and medications. Due to the high risk nature of this patient's pain medication regimen, frequent office visit refill appointments (every 1-3 months) are medically necessary to monitor for an addiction disorder. Prescribed medication that requires intensive monitoring for toxicity Lyrica. The spine model was demonstrated and Xray and CT was reviewed and used to explain the condition. Chronic conditions not treated during this visit that affected my overall medical decision making: Anxiety, Depression and Parkinson's disease OARRS: Reviewed. Scribe Statement: Scribed for and in the presence of EVE SALAS PA-C by Miriam Whitten CNA. Provider Statement: I, EVE SALAS PA-C, personally performed the services described in the documentation, as scribed by Miriam Whitten CNA in my presence, and it is both accurate and complete. Miriam Whitten CNA 08/18/23 1144 Eve Salas PA-C 08/18/23 1146 documented in this encounter [facility] 08-18-2023 Miscellaneous Notes Addended by: EVE SALAS on: 08/18/2023 01:53 PM Modules accepted: Orders documented in this encounter [facility] 08-18-2023 Note Addended by: EVE SALAS on: 08/18/2023 01:53 PM Modules accepted: Orders [facility] 07-29-2023 Miscellaneous Notes Received call and fax from [facility]. They report gabapentin 600 mg TID is too much for patient. She isn't walking and has to be wheeled down to meals, has increased confusion. They are requesting decreasing dose to 400 mg TID Please advise Please reduce back to 400tid Medication change completed via fax from [facility] and sent back to them with Matts signature. documented in this encounter [facility] 07-29-2023 Telephone encounter Note Received call and fax from [facility]. They report gabapentin 600 mg TID is too much for patient. She isn't walking and has to be wheeled down to meals, has increased confusion. They are requesting decreasing dose to 400 mg TID Please advise [facility] 07-29-2023 Telephone encounter Note Please reduce back to 400tid [facility] Work Phone: 07-29-2023 Telephone encounter Note Medication change completed via fax from [facility] and sent back to them with Matts signature. [facility] 07-21-2023 History of Presen t illness Narrative [facility] [address] [place] [address] Patient: Mirian Márquez Sex: female : 1955 Age: 67 y.o. PCP: Shea Vogel MD 07/21/2023 Mirian Márquez is here for a(n) initial consultation. Chief Complaint Patient presents with Leg Pain HPI: PT in past at [facility] (where she currently lives) which made her pain worse. Pt unsure of how many sessions she completed but states quite a few and was doing until June. Leg Pain The incident occurred more than 1 week ago (few years). There was no injury mechanism. The pain is present in the left ankle, left heel, left foot, left toes, right ankle, right heel, right foot and right toes (right below the knees down to toes bilaterally posteriorly). The quality of the pain is described as cramping (tighness). The pain is at a severity of 10/10. The pain is severe. The pain has been Fluctuating (depends on activity) since onset. Associated symptoms include an inability to bear weight (BLE), muscle weakness (BLE), numbness (BLE) and tingling (BLE). She reports no foreign bodies present. The symptoms are aggravated by weight bearing and movement. She has tried acetaminophen, rest, elevation and ice (Baclofen, Tylenol, Flexeril, Gabapentin currently w/ mild relief; ice w/ no relief; bike peddlar exercised worsened;) for the symptoms. The effect of pain on patient's ADLS: Moderate Impairment. Past Medical History: Diagnosis Date Anemia Back pain Depression Endometrial cancer ([facility]) 2004 Idiopathic hypotension Left atrial enlargement Low back pain Neck pain Osteoporosis Parkinsonism Shaking Left Hand Shingles Skin carcinoma Visual impairment Past Surgical History: Procedure Laterality Date AUGMENTATION VERTEBRAL KYPHOPLASTY SPINE L 1 N/A 07/10/2022 Performed by Emmanuel Dela Cruz MD at [facility] BREAST BIOPSY 2003 stereotactic benign COLONOSCOPY N/A 10/08/2017 Performed by Sedrick Huizar MD at [facility] HYSTERECTOMY 05/24/2004 [facility] in [place], [place] INSERTION INTRAMEDULLARY TROCHANTERIC FIXATION NAIL HIP Left 09/14/2021 Performed by Joshua Ramos MD at [facility] SELECTIVE LASER TRABECULOPLASTY Right 02/24/2019 SLT 360 OD (skipping narrow areas) JCB TUBAL LIGATION 2000 Allergies Allergen Reactions Wellbutrin [Bupropion Hcl] Hallucinations Family History Problem Relation Age of Onset Arthritis Mother Heart disease Mother Hypertension Mother Kidney disease Mother Breast cancer Neg Hx Social History Socioeconomic History Marital status: Spouse name: Not on file Number of children: Not on file Years of education: Not on file Highest education level: Not on file Occupational History Not on file Tobacco Use Smoking status: Never Smokeless tobacco: Never Vaping Use Vaping Use: Never used Substance and Sexual Activity Alcohol use: No Drug use: No Sexual activity: Defer Other Topics Concern Caffeine Use Yes Social History Narrative Not on file Social Determinants of Health Financial Resource Strain: Not on file Food Insecurity: No Food Insecurity (07/21/2023) Hunger Screening Food Insecurity - Worry: Never True Food Insecurity - Inability: Never True Transportation Needs: Not on file Physical Activity: Not on file Stress: Not on file Social Connections: Not on file Interpersonal Safety: Not on file Housing Instability: Not on file Review of Systems Neurological: Positive for tingling (BLE) and numbness (BLE). Vital Signs: BP 119/63 (BP Site: Right Arm, BP Postition: Sitting) Pulse 79 Resp 18 Ht 154.9 cm (5' 1 ) Wt 52.6 kg (116 lb) SpO2 97% BMI 21.92 kg/m Physical Exam: GENERAL - Healthy patient that appears stated age. HEENT - Normocephalic / Atraumatic, Extraoccular movements intact, trachea midline, thyroid within normal limits. CV - pulse regular, Warm extremities with appropriate color of nailbeds. RESP - No obvious wheezing, No Shortness of Breath, No overexertion response to exam maneuvers. COORDINATION - remains intact. PSYCH - Alert and Oriented x4, Attentive and appropriate, constitutionally normal, displays normal mood and affect per situation, answered questions appropriately during examination, demonstrated appropriate attention during discussion, demonstrated appropriate cognitive reasoning and understanding of the medical condition by asking appropriate questions regarding the diagnosis and risks/benefits/alternatives of treatment modalities. No obvious deficits in memory, reasoning, or intellect. Lumbar: SKIN - No rashes or bruising in the area of the patient s pain. LYMPH NODES - demonstrate no obvious enlargement. EXTREMITIES - Lower extremities are warm, with minimal edema and palpable pulses. Tenderness to palpation noted in the lumbar spine and paraspinal musculature. Pain is elicited with flexion, extension, and lateral rotation of the lumbar spine. Range of motion is diminished with these motions due to pain. Facet palpation is noted to be painful and facet loading maneuvers elicit pain that is concordant with the patient s normal pain complaints. Some muscle spasm is noted in the overlying musculature. STRENGTH - noted to be 5 out of 5 all muscle groups bilateral lower extremities including muscles involving hip flexion and abduction, knee flexion and extension, as well as foot dorsiflexion and plantarflexion. No notable atrophy, fasciculations or spasm. SENSORY - No notable sensory deficits in the bilateral lower extremities to touch or pinprick in all dermatomal distributions. Straight Leg Raise is negative bilaterally. Gait is antalgic and assisted with ambulatory aid(s): W/C. Assessment/Treatment Plan: Mirian was seen today for leg pain. Diagnoses and all orders for this visit: Lumbar spondylosis - gabapentin (NEURONTIN) 600 mg tablet; Take 1 tablet (600 mg total) by mouth 3 (three) times a day. Bilateral leg cramps - gabapentin (NEURONTIN) 600 mg tablet; Take 1 tablet (600 mg total) by mouth 3 (three) times a day. Increase to Gabapentin 600 mg TID With Regard to medication management, it is felt that the patient would benefit from the changes mentioned above. This should provide symptomatic pain relief as part of the comprehensive pain management strategy outlined. Risks, Benefits, Side effects, and possible interactions of these medications were reviewed and the medication agreement has been discussed, agreed upon, and signed. The patient understands compliance concerns and the requirement of pill counts and drug screens while taking medications prescribed by this clinic. Follow up 1 month The medications I have prescribed have been reviewed for medication interactions/contraindications and/or for upcoming procedures: continue current medication regimen without any changes. DISCUSSION: Treatment options discussed with patient and all questions answered to patient's satisfaction. Discussed the rules and regulations surrounding prescription of opioids and compliance at length. Failure to follow the rules and regulation will result in tapering and discontinuation of medications if applicable. The patient has been instructed as to the type of medication prescribed along with directions for use. Potential side effects have been discussed, along with risks and benefits of taking this medication. (S)he was instructed as to what to do if (s)he experiences side effects, including when to discontinue the medication. (S)he was advised to call this office in this event. Also discussed at length safety and security of RX and medications. Due to the high risk nature of this patient's pain medication regimen, frequent office visit refill appointments (every 1-3 months) are medically necessary to monitor for an addiction disorder. Prescribed medication that requires intensive monitoring for toxicity Gabapentin. The spine model was demonstrated and Xray and MRI was reviewed and used to explain the condition. Chronic conditions not treated during this visit that affected my overall medical decision making: Anxiety and Depression OARRS: Reviewed. Scribe Statement: Scribed for and in the presence of EVE SALAS PA-C by Miriam Whitten CNA. Provider Statement: EVE Alvarado PA-C, personally performed the services described in the documentation, as scribed by Miriam Whitten CNA in my presence, and it is both accurate and complete. Miriam Whitten CNA 07/21/23 1151 Eve Salas PA-C 07/21/23 1156 documented in this encounter [facility] 07-01-2023 Telephone encounter [facility], is questioning if you want her started off with 10mg and then go up? Her call back is [phone]. Thank you! [facility] 07-01-2023 Miscellaneous Notes PC from [facility] received Rx for Baclofen 20mg, is questioning if you want her started off with 10mg and then go up? Her call back is [phone]. Thank you! documented in this encounter [facility] 07-01-2023 History of Presen t illness Narrative Mirian Márquez is a 67 y.o. female presents with chief complaint of Pain HPI: Patient here for leg cramps that have gotten worse, states they happen almost everyday now. Pain SUBJECTIVE: MEDICATIONS: ALLERGIES Current Outpatient Medications Medication Instructions bisacodyl (Dulcolax) 10 MG suppository Rectal brimonidine (AlphaGAN P) 0.2 % ophthalmic solution 1 drop, Both Eyes, 2 times daily calcium carbonate (TUMS) 500 mg, Oral, Daily carbidopa-levodopa (Sinemet) 25-100 MG tablet 1 tablet, Oral, 5 times daily, Per neuro carbidopa-levodopa CR (Sinemet CR) 25-100 MG ER tablet 1 tablet, Oral, 5 times daily, Take one tablet 5 times a day Carboxymethylcellul-Glycerin (Refresh Relieva) 0.5-0.9 % solution 2 drops, Ophthalmic, 2 times daily cholecalciferol (Vitamin D-3) 50 MCG (2000 UT) tablet Oral, Daily cyclobenzaprine (Flexeril) 5 MG tablet Eyelid Cleansers (OCUSOFT LID SCRUB FOAMING EX) Apply externally gabapentin (NEURONTIN) 400 mg, Oral, 3 times daily ibandronate (BONIVA) 150 mg, Oral, Every 30 days loperamide (IMODIUM) 2 mg, Oral, 4 times daily PRN LORazepam (ATIVAN) 0.25 mg, Oral, Every 8 hours PRN, 1/2 tab bid prn for anxiety. May take up to tid for severe anxiety prn magnesium oxide (Mag-Ox) 400 MG tablet 1 tablet by mouth once a day Melatonin 5 MG capsule Oral mirtazapine (REMERON) 30 mg, Oral, Nightly PRN mirtazapine (REMERON) 30 mg, Oral, Nightly PRN omeprazole (PRILOSEC) 40 mg, Oral, Daily before breakfast, Do not crush or chew. sertraline (ZOLOFT) 150 mg, Oral, Daily timolol (Timoptic) 0.5 % ophthalmic solution 1 drop, Both Eyes, Daily Allergies Allergen Reactions Bupropion Unknown PAST MEDICAL HISTORY: SOCIAL HISTORY SURGICAL HISTORY: Past Medical History: Diagnosis Date Depression ([facility]) Endometrial cancer ([facility]) 2004 History of being hospitalized 08/2022 [facility] days History of being hospitalized 04/2022 [facility]14 days History of psychiatric hospitalization [facility] 06/2022 and 04/2022 Nontoxic multinodular goiter ([facility]) Osteoporosis ([facility]) Parathyroid adenoma Parkinson's disease Spinal stenosis Thyroid nodule ([facility]) Vitamin D deficiency Social History Tobacco Use Smoking status: Never Smokeless tobacco: Never Vaping Use Vaping Use: Never used Substance Use Topics Alcohol use: Not Currently Comment: none, Caffeine intake: none Drug use: Never Past Surgical History: Procedure Laterality Date BONE MARROW BIOPSY 07/10/2022 L1 BREAST BIOPSY Right 2003 COLONOSCOPY 2009 FIXATION KYPHOPLASTY LUMBAR SPINE 07/10/2022 Balloon Kyphoplasty w elevation of fracture and cement augmentation of L1 vertebral body HIP FRACTURE SURGERY Left 09/14/2021 HYSTERECTOMY 2005 Total [place] LASER SURGERY OF EYE Right 02/2019 TUBAL LIGATION Bilateral 2001 REVIEW OF SYMPTOMS: Review of Systems Constitutional: Negative. HENT: Negative. Eyes: Negative. Respiratory: Negative. Cardiovascular: Negative. Gastrointestinal: Positive for blood in stool. Genitourinary: Negative. Musculoskeletal: Negative. Leg cramps Skin: Negative. Neurological: Negative. Psychiatric/Behavioral: Negative. All other systems reviewed and are negative. Hematological: Negative. Endocrine: Negative. Allergic/Immunologic: Negative. OBJECTIVE: Vitals: 07/01/23 1336 BP: 128/82 Pulse: 78 Resp: 18 SpO2: 98% Physical Exam Vitals and nursing note reviewed. Constitutional: Appearance: Normal appearance. HENT: Head: Normocephalic and atraumatic. Eyes: Conjunctiva/sclera: Conjunctivae normal. Cardiovascular: Rate and Rhythm: Normal rate and regular rhythm. Pulmonary: Effort: Pulmonary effort is normal. Breath sounds: Normal breath sounds. Musculoskeletal: Cervical back: Normal range of motion and neck supple. Comments: Shuffle gait Skin: General: Skin is warm and dry. Neurological: Mental Status: She is alert and oriented to person, place, and time. Psychiatric: Mood and Affect: Mood normal. ASSESSMENT AND PLAN: Assessment/Plan Diagnoses and all orders for this visit: Secondary parkinsonism, unspecified secondary Parkinsonism type (CMS/HCC) - Ambulatory referral to Pain Medicine; Future Dystonia - baclofen (Lioresal) 20 MG tablet; Take 1 tablet (20 mg) by mouth in the morning and 1 tablet (20 mg) in the evening and 1 tablet (20 mg) before bedtime. - Ambulatory referral to Pain Medicine; Future Muscle cramping - baclofen (Lioresal) 20 MG tablet; Take 1 tablet (20 mg) by mouth in the morning and 1 tablet (20 mg) in the evening and 1 tablet (20 mg) before bedtime. - Ambulatory referral to Pain Medicine; Future Her leg cramps are limiting her quality of life. No help with the flexaril. Will stop that and try baclofen 20 mg TID try for 2 weeks if not at goal will switch to norflex 100 mg BID but in the mean time will refer to pain management to see if they have anything to offer her No follow-ups on file. documented in this encounter [facility] 09-11-2021 Note HISTORY: Multiple fa lls PROCEDURE: [...] signed by Kieran Caputo on 09/11/2021 1121 [facility] Preparatory Technician Evaluation note Diagnosis Secondary parkinsonism, unspecified secondary Parkinsonism type (CMS/HCC)- Primary Dystonia Abnormal involuntary movements Muscle cramping documented in this encounter [facility] HealthcareEvaluation note* Diagnosis Lumbar spondylosis- Primary Lumbosacral spondylosis without myelopathy Bilateral leg cramps [facility] Lumbar spondylosis Lumbosacral spondylosis without myelopathy Bilateral leg cramps documented in this encounter [facility] SystemInstructionsNot on filedocumented in this encounter [facility] SystemInstructionsNot on filedocumented in this encounter [facility] SystemInstructionsNot on filedocumented in this encounter [facility] SystemReason for referral (narrative)* Consultation (Routine) - Pending Review Specialty Diagnoses / Procedures Referred By Navdeep hoskins Referred To Contact Pain Medicine Diagnoses Secondary parkinsonism, unspecified secondary Parkinsonism type (CMS/HCC) Dystonia Muscle cramping Procedures [place] OFFICE/OUTPATIENT [facility] 60 MINUTES Saira Proctor, FADY [address] [place] [address] Unallocated, [facility] Provider [address] [place] [id number] Referral ID Status Reason Start Date Expiration Date Visits Requested Visits Authorized [id number] Pending Review Specialty Services Required 07/01/2023 12/28/2023 1 1 [facility] Healthcare Summary Purpose Family History No Family History Records FoundNo Family History Records FoundNo Family History Records FoundNo Family History Records FoundNo Family History Records Found Advance Directives No Advanced Directives Records FoundDocuments on File Type Date Recorded Patient Industrial Registered Nurse Expl anation Living Will 09/23/2021 7:47 AM Durable Power of Tool Lapper Hand 09/23/2021 7:47 AM Latest Code Status on File Code Status Date Activated Date Inactivated Comments Full Code 07/08/2022 9:19 PM 07/14/2022 5:18 PM Code Status History Code Status Date Activated Date Inactivated Comments Full Code 09/13/2021 6:49 PM 09/16/2021 8:13 PM Documents on File Type Date Recorded Patient Industrial Registered Nurse Ernesto Brown Will 09/23/2021 7:47 AM Durable Power of Tool Lapper Hand 09/23/2021 7:47 AM Latest Code Status on File Code Status Date Activated Date Inactivated Comments Full Code 07/08/2022 9:19 PM 07/14/2022 5:18 PM Code Status History Code Status Date Activated Date Inactivated Comments Full Code 09/13/2021 6:49 PM 09/16/2021 8:13 PM Reason for Referral Specialty Diagnoses / Procedures Referred By Navdeep t Referred To Contact Diagnoses Lumbar spondylosis Bilateral leg cramps Eve Salas PA-C [address] [facility] [place] [address] Referral ID Status Reason Start Date Expiration Date V isits Requested Visits Authorized [id number] Pending Review 1 1 Additional Source Comments INFORMATION SOURCE (unrecogn ized section and content) DATE CREATED AUTHOR 11/10/2017 [facility] DATE CREATED AUTHOR AUTHOR'S ORGANIZ ATION 02/16/2022 [facility] DATE CREATED AUTHOR AUTHOR'S ORGANIZ ATION 08/31/2022 [facility] DATE CREATED AUTHOR AUTHOR'S ORGANIZ ATION 08/11/2023 [facility] EPIC DATE CREATED AUTHOR AUTHOR'S ORGANIZ ATION 08/19/2023 [facility] Teams (unrecognized sec tion and content) Collar Sewer Relationship Specialty Start Date End Date Shea Vogel MD [address] [place], [place] [id number] PCP - General Family Medicine 10/05/22 Saira Proctor NP [address] [place], [place] [id number] PCP - ACO Reach 10/08/22 Saira Proctor BILLING MACHINE OPERATOR [address] [place] [address] Nurse Practitioner Family Medicine 10/05/22 Collar Sewer Relationship Specialty Start Date End Date Shea Vogel MD [address] [place] [address] PCP - General Family Medicine 10/05/22 Saira Proctor, BILLING MACHINE OPERATOR [address] [place] [address] PCP - ACO Reach 10/08/22 Saira Proctor NP [address] [place] [address] Nurse Practitioner Family Medicine 10/05/22 Collar Sewer Relationship Specialty Start Date End Date Shea Vogel MD [address] [place] [address] PCP - General Family Medicine 10/05/22 Saira Proctor BILLING MACHINE OPERATOR [address] [place] [address] PCP - ACO Reach 10/08/22 Saira Proctor NP [address] [place] [address] Nurse Practitioner Family Medicine 10/05/22 Collar Sewer Relationship Specialty Start Date End Date Shea Vogel MD [address] [place] [address] PCP - General Family Medicine 07/08/22 Collar Sewer Relationship Specialty Start Date End Date Shea Vogel MD [address] [place] [address] PCP - General Family Medicine 07/08/22 Collar Sewer Relationship Specialty Start Date End Date Shea Vogel MD [address] [place], [place] [id number] PCP - General Family Medicine 07/08/22 Reason for Visit (unrecogniz ed section and content) Reason Comments Pain Reason Onset Date Comments Medication Question 07/01/2023 Reason Comments Leg Pain Reason Comments Back Pain FOR RECORDS PERTAINING TO PATIENTS WHO ARE [...] BE BASED ON THE PRIMARY CLINICAL RECORDS. [facility]. provides no warranty or guarantee of the accuracy or completeness of information in this document.
--- NOTE | 2023-09-07 11:48 | ED_ITS ---
HPI HPI - General Adult General Chief complaint: Weakness Stated complaint: altered mental status Time Seen by Provider: 09/07/23 11:16 Source: patient Mode of arrival: ambulance Limitations: altered mental status History of Present Illness HPI narrative: Over the past month the patient has been slowly and steadily declining with respect to more confusion and less activity on a daily basis, per family and friends. She resides at [facility]. The called EMS and had the patient brought here to be evaluated as she was more confused, stiffer and less active over the last 24 hours. The staff found the patient leaning to the side of the bed but had not witnessed any falls. Patient uncertain whether or not she fell, saying yes one time and no another. She has no pain complaints or other complaints on questioning. Patient has Parkinson's. Related Data Home Medications ?Medication ?Instructions ?Recorded ?Confirmed bisacodyl 10 mg rectal suppository 10 mg [place] DAILY PRN constipation 01/27/23 09/07/23 (Laxative (bisacodyl)) brimonidine 0.2 % eye drops 2 drp ophthalmic (eye) BID 01/27/23 09/07/23 calcium carbonate (Calcium 500) 1,000 mg PO Q2H PRN dyspepsia 01/27/23 09/07/23 carbidopa ER 25 mg-levodopa 100 mg 1 tab PO .5x 01/27/23 09/07/23 tablet,extended release melatonin 5 mg tablet 5 mg PO BEDTIME PRN sleep 01/27/23 09/07/23 omeprazole 40 mg capsule,delayed 40 mg PO BEDTIME 01/27/23 09/07/23 release sertraline 100 mg tablet 100 mg PO DAILY 01/27/23 09/07/23 timolol maleate 0.5 % eye drops 2 drp ophthalmic (eye) BID 01/27/23 09/07/23 cholecalciferol (vitamin D3) 50 50 mcg PO DAILY 01/28/23 09/07/23 mcg (2,000 unit) capsule loperamide 2 mg capsule 2 mg PO Q6H PRN loose stool 01/28/23 09/07/23 (Anti-Diarrheal (loperamide)) lorazepam 0.5 mg tablet (Ativan) 0.5 mg PO BID 01/28/23 09/07/23 acetaminophen 500 mg tablet 500 mg PO Q8H PRN fever or pain 09/07/23 09/07/23 baclofen 10 mg tablet 10 mg PO Q8H 09/07/23 09/07/23 pregabalin 50 mg capsule (Lyrica) 50 mg PO BID 09/07/23 09/07/23 sertraline 50 mg tablet 50 mg PO Q24H 09/07/23 09/07/23 Allergies Allergy/AdvReac Type Severity Reaction Status Date / Time bupropion [From Wellbutrin] Allergy Verified 09/07/23 11:44 Opioid HPI Opioid Management Most Recent Opioid Data: Last Pain Scale 8 01/28/23 10:21 PFSH PFSH Medical History Surgical History Family History Brother Family history of cancer Grandmother Family history of hypertension Family history of stroke Social History Within the past year, how often did you have a drink containing alcohol: never Score interpretation: A score less than 3 is consistent with normal alcohol consumption. Smoking status: Never smoker Non-prescribed substance use: denies use Previous occupational history: retired Known occupational exposures/hazards: No Highest level of school completed/degree received: high school graduate Are you now , , , , never or living with a partner: In a typical week, how many times do you talk on the telephone with family, friends, or neighbors: twice per week How often do you get together with friends or relatives: never How often do you attend synagogue or spiritism services: never Do you belong to any clubs or organizations such as synagogue groups unions, fraternal or athletic groups, or school groups: yes Total score: 2 Score interpretation: A score of greater than or equal to 2 indicates the lowest level of social isolation. Little interest or pleasure in doing things: nearly every day Feeling down, depressed, or hopeless: not at all Feel stressed/tense/nervous/anxious/difficulty sleeping: not at all Life stressors: other Life stressor details: prefer not to say Do you think of yourself as: straight/heterosexual Gender Identity: female Exam Narrative Exam Narrative: Nurses notes and vital signs reviewed and patient is not hypoxic. afebrile General: Well-appearing and in no apparent distress. Skin: Warm, dry, no pallor noted. No rash. Head: Normocephalic, atraumatic. Neck: Supple, non-tender. Eye: Pupils are equal, round and EOMI. No scleral icterus. Ears, Nose, Mouth, and Throat: TM are clear, no posterior oropharynx erythema or nasal mucosal hypertrophy, uvula is mid-line Oral mucosa is moist Cardiovascular: Regular Rate and Rhythm without murmur, gallop or rub. Respiratory: No accessory muscle use or respiratory distress. Lungs are clear to auscultation, no wheezing, rales or rhonchi Chest Wall: no tenderness Back: No midline thoracic or lumbar vertebral tenderness. No CVA tenderness Musculoskeletal: normal ROM, no calf or popliteal tenderness, no lower extremity edema/swelling GI: Abdomen is soft, non-distended. Normal bowel sounds. No masses appreciated. No tenderness to palpation. No rebound, guarding, or rigidity noted. Neurological: Awake and alert. Not oriented to time, place or reason for ED visit. No cranial nerve dysfunction observed. No truncal ataxia but needs some assistance sitting up/forward. Moves all extremities but very slowly. No pronator drift. Able to lift extremities unassisted. Sensation intact. No neglect. Mild UE tremor noted. NIH score = 0 Psychiatric: Cooperative and interactive. Flat affect. Constitutional Vital Signs, click to edit/add: Last Vital Signs Temp 98.6 F 09/07/23 11:13 Pulse 85 09/07/23 13:10 Resp 20 09/07/23 13:10 BP 149/74 H 09/07/23 13:00 Pulse Ox 98 09/07/23 13:10 O2 Del Method Room Air 09/07/23 11:13 Course Vital Signs Vital signs: Vital Signs Temperature 98.6 F 09/07/23 11:13 Pulse Rate 80 09/07/23 11:13 Respiratory Rate 16 09/07/23 11:13 Blood Pressure 115/56 09/07/23 11:13 Pulse Oximetry 96 09/07/23 11:13 Oxygen Delivery Method Room Air 09/07/23 11:13 Temperature 98.6 F 09/07/23 11:13 Pulse Rate 85 09/07/23 13:10 Respiratory Rate 20 09/07/23 13:10 Blood Pressure 149/74 H 09/07/23 13:00 Pulse Oximetry 98 09/07/23 13:10 Oxygen Delivery Method Room Air 09/07/23 11:13 Medical Decision Making MDM Narrative Medical decision making narrative: Patient was placed on quality assurance monitor and EKG obtained. Blood drawn and sent for evaluation. CT scan of the brain and chest x-ray were also obtained. Urine was sent for testing as well. The patient's friend came to the emergency department. She told me the patient's family all lives out of the state. She is that she visits this patient 1-2 times a week and has noticed over the last 3 to 4 weeks the patient has steadily been weaker with slightly less attentiveness and lower level of activity. She has a dramatic difference this week with the patient Having difficulty getting out of bed on her own. The patient apparently lives at the assisted living [facility] and has to do a lot of self-care, Which she has recently been unable to do. Workup here does not reveal any focal cause of the patient's symptoms. Her BUN is slightly elevated. White blood cell count is slightly decreased. Ammonia and TSH are negative. Chest x-ray and head CT did not reveal anything to account for the patient's symptoms. Urinalysis shows ketones and trace leukocyte Estrace, 0-2 white blood cells but no bacteria. The patient received a liter of normal saline IV fluid without any improvement. She is still too weak to get up and ambulate without assistance. Case was discussed with Dr. Dhaliwal, the on-call admitting physician today. She agreed to admit this patient on observation basis for further evaluation and treatment plans for physical therapy, Occupational Therapy and additional evaluation and intervention as needed. Lab Data Lab results reviewed: Yes I reviewed the patient's lab results Labs: Lab Results 09/07/23 09/07/23 09/07/23 Range/Units 11:30 12:09 12:47 WBC 3.6 L (4.0-11.0) 10^3/uL RBC 4.96 (4.20-5.40) 10^6/uL Hgb 14.4 (12.0-16.0) g/dL Hct 44.4 (36.0-48.0) % MCV 89.5 (81.0-99.0) fL MCH 29.0 (26.7-34.0) pg MCHC 32.4 (29.9-35.2) g/dL RDW 13.2 (11.0-15.0) % Plt Count 215 (150-450) 10^3/uL MPV 10.4 (9.5-13.5) fL Neut % (Auto) 66.1 (43.0-75.0) % Lymph % (Auto) 19.7 L (20.5-60.0) % [place] % (Auto) 11.4 (1.7-12.0) % Eos % (Auto) 1.7 (0.9-7.0) % Baso % (Auto) 0.8 (0.2-2.0) % Neut # (Auto) 2.4 (1.4-6.5) 10^3/uL Lymph # (Auto) 0.7 L (1.2-3.8) 10^3/uL [place] # (Auto) 0.4 (0.3-0.8) 10^3/uL Eos # (Auto) 0.1 (0.0-0.7) 10^3/uL Baso # (Auto) 0.0 (0.0-0.1) 10^3/uL Abs Immat Gran (auto) 0.01 (0.00-0.03) 10^3/uL Imm/Tot Granulo (auto) 0.3 (0.0-0.5) % Sodium 144 (136-145) mmol/L Potassium 4.1 (3.5-5.1) mmol/L Chloride 103 (98-107) mmol/L Carbon Dioxide 30.0 (21.0-32.0) mmol/L Anion Gap 15.1 BUN 22.0 H (7.0-18.0) mg/dL Creatinine 0.80 (0.55-1.02) mg/dL Est GFR ( Amer) >60 (>=60) Est GFR (Non-Af Amer) >60 (>=60) BUN/Creatinine Ratio 27.5 Glucose 95 (74-106) mg/dL Calcium 9.8 (8.5-10.1) mg/dL Magnesium 2.1 (1.8-2.4) mg/dL Total Bilirubin 0.6 (0.2-1.0) mg/dL AST 23 (15-37) U/L ALT 10 L (14-59) U/L Alkaline Phosphatase 61 (46-116) U/L Ammonia <10 L (11-32) umol/L Total Protein 7.4 (6.4-8.2) g/dL Albumin 4.0 (3.4-5.0) g/dL Globulin 3.4 g/dL Albumin/Globulin Ratio 1.2 TSH 1.378 (0.358-3.740) uIU/mL Urine Color Yellow (YELLOW) Urine Clarity Clear (CLEAR) Urine pH 6.0 (5.0-9.0) Ur Specific [place] 1.025 (1.005-1.025) Urine Protein Trace (NEG/TRACE) mg/dL Urine Glucose (UA) Negative (NEGATIVE) mg/dL Urine Ketones 40 A (NEGATIVE) mg/dL Urine Occult Blood Negative (NEGATIVE) Urine Nitrite Negative (NEGATIVE) Urine Bilirubin Negative (NEGATIVE) Urine Urobilinogen 1.0 (0.2-1.0) EU/dL Ur Leukocyte Esterase Trace A (NEGATIVE) Urine RBC None seen (0-2) #/HPF Urine WBC 0-2 A (NONE SEEN) #/HPF Ur Squamous Epith Cells Few A (NONE/RARE) #/LPF Urine Bacteria None seen (NONE SEEN) #/HPF Urine Mucus None seen (NONE SEEN) Ur Culture Indicated? No ECG Data Attestation: I personally reviewed and interpreted this ECG as follows: Interpretation: EKG interpretation: Emergency Department physician interpretation. artifact present due to patient's parkinson's. Normal sinus rhythm at 72bpm. 1st degree AVB. no ST segment elevation or depression. Discharge Plan Discharge Chief Complaint: Weakness Clinical Impression: Acute alteration in mental status, Weakness, Difficulty in walking, Parkinson disease Patient Disposition: Admitted as Observation Time of Disposition Decision: 13:59 Prescriptions / Home Meds: No Action pregabalin [Lyrica] 50 mg capsule 50 mg PO BID baclofen 10 mg tablet 10 mg PO Q8H sertraline 50 mg tablet 50 mg PO Q24H acetaminophen 500 mg tablet 500 mg PO Q8H PRN (Reason: fever or pain) carbidopa-levodopa 25-100 mg tablet extended release 1 tab PO .5x Rx Instructions: 0600,1000,1400,1800,2200 sertraline 100 mg tablet 100 mg PO DAILY omeprazole 40 mg capsule,delayed release(DR/EC) 40 mg PO BEDTIME brimonidine 0.2 % drops 2 drp OPHTHALMIC (EYE) BID timolol maleate 0.5 % drops 2 drp OPHTHALMIC (EYE) BID melatonin 5 mg tablet 5 mg PO BEDTIME PRN (Reason: sleep) bisacodyl [Laxative (bisacodyl)] 10 mg suppository 10 mg [place] DAILY PRN (Reason: constipation) calcium carbonate [Calcium 500] 500 mg calcium (1,250 mg) tablet,chewable 1,000 mg PO Q2H PRN (Reason: dyspepsia) lorazepam [Ativan] 0.5 mg tablet 0.5 mg PO BID loperamide [Anti-Diarrheal (loperamide)] 2 mg capsule 2 mg PO Q6H PRN (Reason: loose stool) cholecalciferol (vitamin D3) 50 mcg (2,000 unit) capsule 50 mcg PO DAILY Print Language: Danish Referrals: ELLY SUNSHINE [Primary Care Provider] - 1 week
--- NOTE | 2023-09-07 11:52 | ECG_ITS ---
The [facility] Test Date: 2023-09-07 Pat Name: ARMANDO MÁRQUEZ Department: Room: - Gender: Female Claim Investigator: : 1955 Requested By: ELLY SUNSHINE Order Number: [id number] Reading MD: JOHN SIMPSON Measurements Intervals [place] Rate: 72 P: 60 OR: 160 QRS: 68 QRSD: 82 T: 93 QT: 410 QTc: 434 Interpretive Statements 1100 Sinus rhythm [address] depression 0102 ARTIFACT PRESENT 9150 abnormal ECG Electronically Signed On 09-07-2023 18:04:48 EDT by JOHN SIMPSON
[2023-09-07] MEDS: 0.9 % SODIUM CHLORIDE 1,000 ML 999 ML IV (12:06)
[2023-09-07 12:17] LABS: Anion Gap 15.1
[2023-09-07 12:24] LABS: Alanine Aminotransferase 10 U/L (14-59); Albumin Globulin Ratio 1.2; Alkaline Phosphatase 61 U/L (46-116); Aspartate Amino Transferase 23 U/L (15-37); BUN Creatinine Ratio 27.5; Bilirubin Total 0.6 mg/dL (0.2-1.0); Calcium 9.8 mg/dL (8.5-10.1); Chloride 103 mmol/L (98-107); Estimated GFR (African America >60 (>=60); Estimated GFR (Non-African Ame >60 (>=60); Globulin 3.4 g/dL; Glucose 95 mg/dL (74-106); Magnesium 2.1 mg/dL (1.8-2.4); Potassium 4.1 mmol/L (3.5-5.1); Sodium 144 mmol/L (136-145); Thyroid Stimulating Hormone 1.378 uIU/mL (0.358-3.740); Total Protein 7.4 g/dL (6.4-8.2)
--- NOTE | 2023-09-07 12:25 | CT_ITS ---
The [address] [address] Patient Name: ARMANDO MÁRQUEZ MRN: [id number] date: 1955 Sex: F Assigned Patient Location: ER Current Patient Location: ER Accession/Order Number: [id number] Exam Date: 09/07/2023 12:16 Report Date: 09/07/2023 12:43 At the request of: ORIANA VARGAS Procedure: CT head/brain wo con EXAM: CT head/brain wo con HISTORY: altered mentation COMPARISON: None. TECHNIQUE: Axial soft tissue and bone windows of the calvarium with coronal and sagittal reformats. CT dose reduction technique was used including Automated Exposure Control. Findings: The paranasal sinuses and mastoid air cells are well aerated. No air-fluid levels. No extra-axial fluid collection. No intra-axial or extra-axial bleed. No mass effect or midline shift. The payan-white matter differentiation is preserved. There are white matter low attenuation lesions which are nonspecific but commonly attributed to chronic small vessel ischemic disease. The brain parenchymal volume is reduced yet likely age-appropriate. The ventricles are nondilated. The basal cisterns are patent. The craniovertebral junction is unremarkable. Impression 1. No acute intracranial abnormality. MRI is more sensitive for the evaluation of acute ischemia. 2. Senescent changes. Electronically authenticated by: RICARDO ECHEVARRIA Date: 09/07/2023 12:43
--- NOTE | 2023-09-07 12:25 | XR_ITS ---
The [address] [address] Patient Name: ARMANDO MÁRQUEZ MRN: [id number] date: 1955 Sex: F Assigned Patient Location: ER Current Patient Location: ER Accession/Order Number: [id number] Exam Date: 09/07/2023 12:16 Report Date: 09/07/2023 13:13 At the request of: ORIANA VARGAS Procedure: XR chest 1V EXAM: XR chest 1V 09/07/2023 COMPARISON STUDY: PA and lateral chest 01/29/2016. FINDINGS: The cardiomediastinal contours are within normal limits. Mild chronic biapical fibrotic changes with no new dense consolidation, effusion, edema, failure, or pneumothorax noted. Prior vertebroplasty near the thoracolumbar junction noted. Old healed lateral right third rib fracture deformity may be present. No acute osseous abnormality otherwise noted. HISTORY: altered mentation. XR/XR chest 1V IMPRESSION: No acute cardiopulmonary process suspected. Electronically authenticated by: CANDIDO PFEIFFER Date: 09/07/2023 13:13
[2023-09-07 12:34] LABS: Ammonia <10 umol/L (11-32)
[2023-09-07 12:38] LABS: Basophils Percent Auto 0.8 % (0.2-2.0); Eosinophils Absolute Auto 0.1 10^3/uL (0.0-0.7); Eosinophils Percent Auto 1.7 % (0.9-7.0); Hematocrit 44.4 % (36.0-48.0); Hemoglobin 14.4 g/dL (12.0-16.0); Immature Granulocytes Abs Auto 0.01 10^3/uL (0.00-0.03); Immature Granulocytes Pct Auto 0.3 % (0.0-0.5); Lymphocytes Absolute Auto 0.7 10^3/uL (1.2-3.8); Lymphocytes Percent Auto 19.7 % (20.5-60.0); Mean Corpuscular HGB Conc 32.4 g/dL (29.9-35.2); Mean Corpuscular Volume 89.5 fL (81.0-99.0); Mean Platelet Volume 10.4 fL (9.5-13.5); Monocytes Absolute Auto 0.4 10^3/uL (0.3-0.8); Monocytes Percent Auto 11.4 % (1.7-12.0); Neutrophils Absolute Auto 2.4 10^3/uL (1.4-6.5); Neutrophils Percent Auto 66.1 % (43.0-75.0); Platelet Count 215 10^3/uL (150-450); Red Blood Count 4.96 10^6/uL (4.20-5.40); Red Cell Distribution Width 13.2 % (11.0-15.0); White Blood Count 3.6 10^3/uL (4.0-11.0)
[2023-09-07 13:12] LABS: Bilirubin Urine NEGATIVE (NEGATIVE); Blood Urine NEGATIVE (NEGATIVE); Clarity Urine CLEAR (CLEAR); Color Urine YELLOW (YELLOW); Glucose Urine UA NEGATIVE (NEGATIVE); Ketones Urine 40 mg/dL (NEGATIVE); Leukocyte Esterase Urine TRACE (NEGATIVE); Nitrite Urine NEGATIVE (NEGATIVE); Protein Urine TRACE mg/dL (NEG/TRACE); Specific Gravity Urine 1.025 (1.005-1.025)
[2023-09-07 13:17] LABS: Urine Microscopic Indicated YES
[2023-09-07 13:20] LABS: Bacteria Urine NONE SEEN #/HPF (NONE SEEN); Mucus Urine NONE SEEN (NONE SEEN); RBC Urine NONE SEEN #/HPF (0-2); Squamous Epithelial Cell Urine FEW #/LPF (NONE/RARE); WBC Urine 0-2 #/HPF (NONE SEEN)
[2023-09-07 13:23] LABS: Urine Culture Indicated NO
--- NOTE | 2023-09-07 14:53 | SWNOTE1 ---
Pt is [place]
--- NOTE | 2023-09-07 15:39 | P.HP_ITS ---
<Statement entered by Bernadette Dhaliwal DO - 09/07/23 16:53> This documentation has been reviewed and approved. Patient also seen and evaluated by me on admission, i agree with the above findings and assessment/plan of care. HPI H&P: HPI History of Present Illness Chief complaint: altered mental status Narrative: 09/07/23 1410 This is a 67-year-old female patient with a past medical history as outlined below including Parkinson's disease, glaucoma, anxiety and depression, and GERD; who presented to the ED today from a local assisted living facility after she was found laying half out of bed this morning. Family reports that her muscle spasms and immobility have been slowly worsening for several weeks due to her Parkinson's disease. In addition she appears to be more confused and intermittently aphasic with nonsensical speech. She presented to the ED for further evaluation today. Workup in the ED was essentially benign on labs and imaging. Chest x-ray showed no acute disease. A CT of the head showed no acute intracranial process. A UA was negative for infection but did show some ketones. She is being admitted in observation to the hospitalist service. At the time of my exam the patient is resting comfortably in bed. She is awake and alert and oriented x 2 (self and place). She answers questions appropriately and participates in the exam. She has flat facies consistent with Parkinson's disease. She appears somewhat dry and her friend at the bedside says she has had very poor oral intake of food and fluids for the last 2 weeks. She was started on Lyrica in exchange for gabapentin (due to her lower extremity pain) approximately 2 weeks ago. It is unclear if her mentation changes indicate possible side effect from Lyrica or chronic progression of her Parkinson's disease. She has chronic BLE cramps, especially with walking which have worsened considerably over the last several months. She has been unable to follow up with her usual neurologist. Her appointment in Jun was cancelled by the clinic and was rescheduled in September. Opioid HPI Opioid Management Most Recent Opioid Data: Last Pain Scale 8 01/28/23 10:21 Review of Systems ROS Status of ROS 10 or more systems reviewed and unremark able except as noted in history and below [facility] Medical History (Updated 09/07/23 @ 16:11 by Olga Villegas NP) Osteoporosis ?M81.0 - Age-related osteoporosis without current pathological fracture (ICD- 10) Glaucoma ?H40.9 - Unspecified glaucoma (ICD-10) Depression with anxiety ?F41.8 - Other specified anxiety disorders (ICD-10) GERD (gastroesophageal reflux disease) ?K21.9 - Gastro-esophageal reflux disease without esophagitis (ICD-10) Difficulty in walking ?R26.2 - Difficulty in walking, not elsewhere classified (ICD-10) Parkinson disease ?G20.A1 - Parkinson's disease without dyskinesia, without mention of fluctuations (ICD-10) Abdominal pain ?R10.9 - Unspecified abdominal pain (ICD-10) Surgical History H/O: hysterectomy ?Z90.710 - Acquired absence of both cervix and uterus (ICD-10) Family History Brother Family history of cancer Grandmother Family history of hypertension Family history of stroke Social History Within the past year, how often did you have a drink containing alcohol: never Score interpretation: A score less than 3 is consistent with normal alcohol consumption. Smoking status: Never smoker Non-prescribed substance use: denies use Previous occupational history: retired Known occupational exposures/hazards: No Highest level of school completed/degree received: high school graduate Are you now , , , , never or living with a partner: In a typical week, how many times do you talk on the telephone with family, friends, or neighbors: twice per week How often do you get together with friends or relatives: never How often do you attend caodaism or adventist services: never Do you belong to any clubs or organizations such as caodaism groups unions, fraternal or athletic groups, or school groups: yes Total score: 2 Score interpretation: A score of greater than or equal to 2 indicates the lowest level of social isolation. Little interest or pleasure in doing things: nearly every day Feeling down, depressed, or hopeless: not at all Feel stressed/tense/nervous/anxious/difficulty sleeping: not at all Life stressors: other Life stressor details: prefer not to say Do you think of yourself as: straight/heterosexual Gender Identity: female Meds Home Medications and Allergies Home Medications ?Medication ?Instructions ?Recorded ?Confirmed ?Type bisacodyl 10 mg rectal suppository 10 mg OH DAILY PRN constipation 01/27/23 09/07/23 History (Laxative (bisacodyl)) brimonidine 0.2 % eye drops 2 drp ophthalmic (eye) TID 01/27/23 09/07/23 History calcium carbonate (Calcium 500) 1,000 mg PO Q2H PRN dyspepsia 01/27/23 09/07/23 History carbidopa ER 25 mg-levodopa 100 mg 1 tab PO .5x 01/27/23 09/07/23 History tablet,extended release melatonin 5 mg tablet 5 mg PO BEDTIME sleep 01/27/23 09/07/23 History omeprazole 40 mg capsule,delayed 40 mg PO .acb 01/27/23 09/07/23 History release sertraline 100 mg tablet 100 mg PO DAILY 01/27/23 09/07/23 History timolol maleate 0.5 % eye drops 1 drp ophthalmic (eye) QAM 01/27/23 09/07/23 History cholecalciferol (vitamin D3) 50 50 mcg PO DAILY 01/28/23 09/07/23 History mcg (2,000 unit) capsule loperamide 2 mg capsule 2 mg PO Q6H PRN loose stool 01/28/23 09/07/23 History (Anti-Diarrheal (loperamide)) lorazepam 0.5 mg tablet (Ativan) 0.25 mg PO BID PRN anxiety 01/28/23 09/07/23 History acetaminophen 500 mg tablet 1,000 mg PO Q8H PRN fever or pain 09/07/23 09/07/23 History baclofen 10 mg tablet 10 mg PO Q8H 09/07/23 09/07/23 History carboxymethylcellulose sodium 1 % 2 drp ophthalmic (eye) TID 09/07/23 09/07/23 History eye liquid gel drops mirtazapine 15 mg tablet (Remeron) 15 mg PO .qhs PRN sleep 09/07/23 09/07/23 History mirtazapine 15 mg tablet (Remeron) 30 mg PO .qhs PRN sleep 09/07/23 09/07/23 History pregabalin 50 mg capsule (Lyrica) 50 mg PO BID 09/07/23 09/07/23 History psyllium husk 3.4 gram/5.4 gram 1 tbsp PO DAILY 09/07/23 09/07/23 History oral powder (Metamucil) sertraline 50 mg tablet 50 mg PO DAILY 09/07/23 09/07/23 History Allergies Allergy/AdvReac Type Severity Reaction Status Date / Time bupropion [From Wellbutrin] Allergy Verified 09/07/23 11:44 Exam Constitutional Vital Signs, click to edit/add: Last Vital Signs Temp 97.8 F 09/07/23 14:04 Pulse 74 09/07/23 14:04 Resp 18 09/07/23 14:04 BP 120/58 09/07/23 14:04 Pulse Ox 95 09/07/23 14:04 O2 Del Method Room Air 09/07/23 14:04 Common normals: no apparent distress, oriented x3, alert and well nourished General appearance: cooperative Orientation/consciousness: Yes awake HENMT Common normals: normocephalic, head/scalp atraumatic, hearing grossly normal bilaterally, external nose normal and moist oral mucous membranes Eye Common normals: PERRL, EOMs intact bilaterally, conjunctivae normal and no scleral icterus Alignment: alignment normal Eyelid: eyelids normal Neck & C-Spine Common normals: no JVD Chest Common normals: inspection of chest normal Chest: symmetrical chest wall rise Respiratory Common normals: normal respiratory effort, no retractions, no use of accessory muscles and clear to auscultation bilaterally Effort & inspection: able to speak in complete sentences Cardio Common normals: no JVD, regular rate, regular rhythm, S1 normal heart sound, S2 normal heart sound, no gallops, no clicks, no murmurs, no rub and peripheral pulses 2+ throughout GI Common normals: Normal to inspection, nondistended, normoactive bowel sounds present, soft to palpation, non-tender, no hepatosplenomegaly, no masses and no bruits Bladder/kidney exam: bladder normal to palpation Back & Pelvis Common normals: thoracic and lumbar spine normal to inspection Extremity Common normals: normal capillary refill and no pedal edema General: normal exam except as noted; no clubbing and no cyanosis Neuro [place] Coma Scale: GCS not evaluated Common normals: CN's II-XII intact bilaterally, moves all extremities, no focal motor deficits and no sensory deficits noted Speech: speech normal Other: Flat facies consistent w/ known Parkinson's disease Psych Common normals: mental status grossly normal, thought process normal, affect normal and activity/motor behavior normal Appearance: grossly normal Activity/motor behavior: appropriate eye contact Mood and affect: depressed mood and flat affect Memory/cognition: memory grossly intact Insight: fair Judgement: fair Results Labs Labs: Short CBC 09/07/23 Range/Units 11:30 WBC 3.6 L (4.0-11.0) 10^3/uL Hgb 14.4 (12.0-16.0) g/dL Hct 44.4 (36.0-48.0) % Plt Count 215 (150-450) 10^3/uL BMP 09/07/23 11:30 Sodium 144 Potassium 4.1 Chloride 103 Carbon Dioxide 30.0 BUN 22.0 H Creatinine 0.80 Glucose 95 Calcium 9.8 Liver Function 09/07/23 Range/Units 11:30 Total Bilirubin 0.6 (0.2-1.0) mg/dL AST 23 (15-37) U/L ALT 10 L (14-59) U/L Alkaline Phosphatase 61 (46-116) U/L Albumin 4.0 (3.4-5.0) g/dL Urine 09/07/23 Range/Units 12:47 Urine Color Yellow (YELLOW) Urine Clarity Clear (CLEAR) Urine pH 6.0 (5.0-9.0) Ur Specific [place] 1.025 (1.005-1.025) Urine Protein Trace (NEG/TRACE) mg/dL Urine Glucose (UA) Negative (NEGATIVE) mg/dL Pulse Oximetry Attestation: I have reviewed the pertinent pulse oximetry results. Imaging Chest x-ray: Attestation: I have reviewed the pertinent imaging results. Radiologist's impression: IMPRESSION: No acute cardiopulmonary process suspected. CT scan - head: Attestation: I have reviewed the pertinent imaging results. Radiologist's impression: Impression 1. No acute intracranial abnormality. MRI is more sensitive for the evaluation of acute ischemia. 2. Senescent changes. Assessment and Plan Assessment and Plan (1) Acute alteration in mental status: Assessment and Plan: Acute * Adm observation * Unclear etiology * No evidence of acute infection * Suspect dehydration and/or adverse SE from Lyrica and/or progression of chronic parkinson's disease (?? Lewy Body) * Waxing and waning symptoms for several weeks, much worse x 2 weeks * Intermittent expressive aphasia w/ nonsensical speech. Pt is aware she is not speaking correctly during these episodes. Last episode 1 week ago. * Increased forgetfulness/dementia symptoms x 2-3 weeks * Hold Lyrica (newly prescribed 2 weeks ago) * Consult [facility] - we appreciate their assistance with this pt's care * Pt has been unable to follow up with her usual outpatient neurology practice * CT brain unremarkable * Obtain MRI brain to r/o CVA vs Parkinson's Progression (2) Dehydration: Assessment and Plan: Acute * Pre-renal azotemia * 1liter bolus given in ED * NS at 100/hr for hydration * CMP daily (3) Weakness: Assessment and Plan: Acute on Chronic * Poor mobility at baseline, much worse in the last month w/ severe BLE cramping * Normal electrolytes in ED - add on mag level * PT/OT consults (4) Protein calorie malnutrition: Assessment and Plan: Acute on Chronic * Family reports 11 lb + weight loss since May * Historically poor eater, but significant appetite suppression in the last 2 weeks * Consult mortgage underwriter * Ensure BID pending dietary recommendations (5) Parkinson disease: Assessment and Plan: Chronic * Continue home Sinemet, baclofen * Hold home Lyrica d/t possible adverse effects on mentation * See above (6) Depression with anxiety: Assessment and Plan: Chronic * Continue home Sertraline and lorazepam (7) Glaucoma: Assessment and Plan: Chronic * Continue home brimonidine and timolol eye gtts Qualifiers: Glaucoma type: unspecified Laterality: bilateral Qualified Code(s): H40.9 - Unspecified glaucoma (8) GERD (gastroesophageal reflux disease): Assessment and Plan: Chronic * Continue home PPI Qualifiers: Esophagitis presence: esophagitis presence not specified Qualified Code(s): K21.9 - Gastro-esophageal reflux disease without esophagitis Urinary Catheter Management Urinary Catheter Management Straight: Cath placed during this visit: Yes Urethral indwelling: No Reason for continuing: not indwelling catheter Insertion date: 09/07/23
--- NOTE | 2023-09-07 15:45 | SWNOTE1 ---
SOILA met with pt and pt's friend of 35 years in room. Pt is slow to answer at this time, but does know she was at [facility] prior to coming to hospital. Pt's friend answered questions. She voiced pt has had a decline in last 2 weeks. Her family is out of town and has been for 2 weeks. Her sister in law is the main decision maker. At this time unsure of dc plan. SOILA to check back tomorrow. Pt did give permission for SW to speak to sister in law. SOILA called Hetal, pt's sister in law. She voiced every time they go out of town something happens with pt. Unsure of dc plan at this time. SW did review Medicare Outpatient Observation Notice with sister in law. Upon reviewing pt's sister in law mentioned pt going to rehab at SNF. SW did let her know at this time it would be out of pocket due to pt being in observation status. She did voice pt does have the funds to pay for this, she voiced they are trying to save her money for the assisted living and she really did not want to spend on rehab, but if had to they can. She did ask if there is a certain number of days she would be at rehab. SW expressed it depends how she did with therapy. SW also let her know SW is not sure if there is a required number of days pt has to pay for to go to rehab, whether it is 10 or 20 or somewhere in between. SOILA also let her know the facilities will likely want the money up front. She voiced she has pt's check book in [place] with her as she is helping her own son right now. SOILA advised if she does need rehab and they are going to pay out of pocket, Hetal can coordinate with facility in regards to the funds. At this time unsure of discharge plans. SW to check back in tomorrow and touch base with Hetal. Medicare Outpatient Observation Notice reviewed and discussed with patient's sister in law. Pt's sister in law verbalized understanding and signed the form. Original placed in patient's and copy placed in patient?s chart.
--- NOTE | 2023-09-07 16:06 | MR_ITS ---
The [address] [address] Patient Name: ARMANDO MÁRQUEZ MRN: [id number] date: 1955 Sex: F Assigned Patient Location: [place] Current Patient Location: [place] Accession/Order Number: [id number] Exam Date: 09/07/2023 17:30 Report Date: 09/07/2023 18:04 At the request of: CARMELA CRAWFORD Procedure: MR head/brain wo con MR head/brain wo con HISTORY: Aphasia/AMS, possible cva vs Parkinson's prog COMPARISON: None. TECHNIQUE: Multi-planar, multi-sequence brain MRI was performed without IV contrast. FINDINGS: Brain volume: Mild diffuse cerebral volume loss. Sagittal midline structures: Normal. Ventricles: Normal. Acute ischemic changes: None. Hemorrhage: None. Masses/edema: None. Huff-white: Negative. White matter: Small number of T2/FLAIR hyperintensities involving the subcortical and deep white matter.. Vessels: Normal. Extra-axial: None. Calvarium/scalp: Negative. Skull base: Negative. Visualized sinuses/orbits: Negative. Visualized upper neck: Negative. MR/MR head/brain wo con IMPRESSION: 1. No acute ischemia. 2. Mild chronic microangiopathy. Electronically authenticated by: AP TYSON Date: 09/07/2023 18:04
[2023-09-07] MEDS: 0.9 % SODIUM CHLORIDE 1,000 ML 100 ML IV (16:11)
[2023-09-07] MEDS: BACLOFEN 10 MG TABLET PO ×2 (16:11→21:28)
[2023-09-07 16:34] LABS: Magnesium 2.1 mg/dL (1.8-2.4)
[2023-09-07] MEDS: LORAZEPAM 0.5 MG TABLET 0.25 MG PO (16:37)
[2023-09-07] MEDS: ACETAMINOPHEN 500 MG TABLET 1000 MG PO (16:37)
[2023-09-07] MEDS: LORAZEPAM 2 MG/ML VIAL 0.5 MG IV (17:23)
[2023-09-07] MEDS: CARBIDOPA/LEVODOPA CR 25-100 MG TABLET 1 TAB PO ×2 (17:23→21:28)
[2023-09-07] MEDS: ENOXAPARIN SODIUM 40 MG/0.4 ML SYRINGE SUBQ (21:27)
[2023-09-07] MEDS: LACTOSE -REDUCED (ENSURE ORIGINAL 237 ML LIQUID) PO (21:27)
[2023-09-07] MEDS: ARTIFICIAL TEARS 300 DROP/15 ML BOTTLE OP (21:28)
[2023-09-07] MEDS: BRIMONIDINE TARTRATE 0.15 % OP SOL 100 DROP/5 ML BOTTLE EYE-BOTH (21:28)
[2023-09-08] VITALS (7 sets, daily range): BP systolic 120–156; BP diastolic 70–83; PULSE 63–101; TEMP 36.4–36.8; O2SAT 94–96
[2023-09-08] MEDS: 0.9 % SODIUM CHLORIDE 1,000 ML 100 ML IV ×3 (02:24→20:11)
[2023-09-08 05:44] LABS: Basophils Percent Auto 0.8 % (0.2-2.0); Eosinophils Absolute Auto 0.1 10^3/uL (0.0-0.7); Eosinophils Percent Auto 1.3 % (0.9-7.0); Hematocrit 37.4 % (36.0-48.0); Immature Granulocytes Abs Auto 0.01 10^3/uL (0.00-0.03); Immature Granulocytes Pct Auto 0.3 % (0.0-0.5); Lymphocytes Absolute Auto 0.7 10^3/uL (1.2-3.8); Lymphocytes Percent Auto 18.9 % (20.5-60.0); Mean Corpuscular HGB Conc 32.1 g/dL (29.9-35.2); Mean Corpuscular Hemoglobin 29.2 pg (26.7-34.0); Mean Platelet Volume 9.6 fL (9.5-13.5); Monocytes Absolute Auto 0.4 10^3/uL (0.3-0.8); Monocytes Percent Auto 11.4 % (1.7-12.0); Neutrophils Absolute Auto 2.5 10^3/uL (1.4-6.5); Neutrophils Percent Auto 67.3 % (43.0-75.0); Platelet Count 176 10^3/uL (150-450); Red Blood Count 4.11 10^6/uL (4.20-5.40); White Blood Count 3.8 10^3/uL (4.0-11.0)
[2023-09-08 05:50] LABS: Alanine Aminotransferase <6 U/L (14-59); Albumin Globulin Ratio 1.2; Albumin Level 2.9 g/dL (3.4-5.0); Alkaline Phosphatase 47 U/L (46-116); Anion Gap 11.6; Aspartate Amino Transferase 11 U/L (15-37); BUN Creatinine Ratio 35.4; Bilirubin Total 0.3 mg/dL (0.2-1.0); Calcium 8.4 mg/dL (8.5-10.1); Carbon Dioxide 25.5 mmol/L (21.0-32.0); Chloride 111 mmol/L (98-107); Estimated GFR (African America >60 (>=60); Estimated GFR (Non-African Ame >60 (>=60); Globulin 2.4 g/dL; Glucose 86 mg/dL (74-106); Potassium 3.1 mmol/L (3.5-5.1); Sodium 145 mmol/L (136-145); Total Protein 5.3 g/dL (6.4-8.2)
[2023-09-08] MEDS: BRIMONIDINE TARTRATE 0.15 % OP SOL 100 DROP/5 ML BOTTLE EYE-BOTH ×3 (05:54→20:59)
[2023-09-08] MEDS: BACLOFEN 10 MG TABLET PO ×2 (05:54→15:15)
[2023-09-08] MEDS: ARTIFICIAL TEARS 300 DROP/15 ML BOTTLE OP ×3 (05:54→21:00)
[2023-09-08] MEDS: CARBIDOPA/LEVODOPA CR 25-100 MG TABLET 1 TAB PO ×2 (05:54→09:33)
[2023-09-08] MEDS: OMEPRAZOLE 40 MG CAPSULE.DR PO (05:54)
[2023-09-08] MEDS: PSYLLIUM SUGAR FREE 5.8 GM POWDER PACKET PO (09:32)
[2023-09-08] MEDS: POTASSIUM CHLORIDE 10 MEQ ER TABLET 40 MEQ PO (09:32)
[2023-09-08] MEDS: LACTOSE -REDUCED (ENSURE ORIGINAL 237 ML LIQUID) PO ×2 (09:32→20:59)
[2023-09-08] MEDS: TIMOLOL MALEATE 0.5% OP SOL 100 DROPS/5 ML BOTTLE 1 DROP OP (09:33)
[2023-09-08] MEDS: SERTRALINE HCL 50 MG TABLET PO (09:33)
[2023-09-08] MEDS: SERTRALINE HCL 100 MG TABLET PO (09:33)
[2023-09-08] MEDS: LORAZEPAM 0.5 MG TABLET 0.25 MG PO (11:39)
--- NOTE | 2023-09-08 11:42 | SWNOTE1 ---
SOILA called and spoke with pt's sister in law, Hetal. SW advised that pt is having speech eval and teleneuro consult later today and if all is well, she may be dc. SOILA did advise Hetal that SNF is recommended and she has remained in observation so it would be private pay. She voiced understanding and does feel pt would benefit from going to rehab. SOILA reviewed list from medicare. gov with star ratings. [facility] first choice, [facility] second choice, and [facility] third choice. SOILA sent email to [facility] to see if they have openings.
--- NOTE | 2023-09-08 11:51 | CM.NOTE ---
Rounds made with Dr. Dhaliwal, pt awaiting teleneuro consult for further recommendations. Discharge planning will be discussed with family.
--- NOTE | 2023-09-08 11:56 | SWNOTE1 ---
SOILA attempted to get ahold of Viola or Sue at [address] and they were not available. SOILA also knows they do not have a bed until Wednesday, but was checking in case since pt was private pt that would make a difference. SOILA called [facility] and spoke with Cami, she voiced she would have to speak with family first in regards to finances before they can accept. SOILA provided Hetal's number to cami. SOILA called Hetal to let her know Cami will be calling to talk about finances.
[2023-09-08] MEDS: ACETAMINOPHEN 500 MG TABLET 1000 MG PO (12:23)
--- NOTE | 2023-09-08 13:59 | SWNOTE1 ---
SW received message from Neris at [facility] and they have spoke with family and financial arrangements have been made. Neris would like referral on pt. Referral sent to [facility].. Referral included face sheet, ED note, H&P, provider notes, case management report, wound consult, nursing notes, diagnostic imaging, med list, and PT/OT notes.
--- NOTE | 2023-09-08 15:34 | P.PN_ITS ---
<Statement entered by Bernadette Dhaliwal DO - 09/09/23 08:23> This documentation has been reviewed and approved. I have also reviewed Neurology recs and agree with change to inpatient status and agree to further management, and need for hospital care. Progress Note: Subjective Subjective Interval history: 09/08/23 09 The patient is currently sitting up in a bedside chair attempting to eat her breakfast. She is awake and alert and oriented x 2. She answers questions appropriately. She complains of weakness of her lower extremities but was able to stand and pivot with assistance to a bedside chair today. Her speech is delayed and soft. She reports some difficulty with gagging when attempting to swallow her food but denies aspiration events. We will consult speech therapy and continue with PT OT therapy as previously ordered. Teleneurology consult is pending later today and we will develop further plan of care after that consult has been completed. ADDENDUM 1530: Teleneurology consult has been completed. They are recommending medication changes as follows: 1. Start 4.6 mg Exelon patch daily 2. Aggressive PT OT and speech therapy 3. Adjust Sinemet dosing to the following: ? 6 AM: Sinemet IR 25/100 x 2, Sinemet CR 50/200 x 1 ? 10 AM: Sinemet IR 25/100 x 2 ? 2 PM: Sinemet IR 25/100 x 2, Sinemet CR 50/200 x 1 ? Discontinue evening and night dosing Avoid protein meal 30 to 60 minutes before and after Sinemet Although not stated on their documentation, nursing notes that the teleneurologist indicated if the patient's symptoms do not improve with these medication changes, transfer to [facility] for in person neurology care could be considered pending clinical course. Exam Constitutional Vital Signs, click to edit/add: Last Vital Signs Temp 97.8 F 09/08/23 12:00 Pulse 98 H 09/08/23 12:00 Resp 16 09/08/23 12:00 BP 120/70 09/08/23 12:00 Pulse Ox 95 09/08/23 12:00 O2 Del Method Room Air 09/08/23 12:00 Common normals: no apparent distress, oriented x3 and alert General appearance: cooperative Orientation/consciousness: Yes awake HENMS Common normals: normocephalic, head/scalp atraumatic and hearing grossly normal bilaterally Eye Common normals: PERRL, EOMs intact bilaterally, conjunctivae normal and no scleral icterus General eye: normal appearance of both eyes Chest Common normals: inspection of chest normal Chest: symmetrical chest wall rise Respiratory Common normals: normal respiratory effort, no use of accessory muscles and clear to auscultation bilaterally Effort & inspection: able to speak in complete sentences Auscultation: diminished lung sounds (BLL) Cardio Common normals: regular rate (Borderline tachycardia), regular rhythm, S1 normal heart sound, S2 normal heart sound, no murmurs and peripheral pulses 2+ throughout GI Common normals: Normal to inspection, nondistended, normoactive bowel sounds present, soft to palpation, non-tender and no hepatosplenomegaly Bladder/kidney exam: bladder normal to palpation Extremity Common normals: normal to inspection and no calf tenderness General: no clubbing, no cyanosis and no edema Neuro Common normals: CN's II-XII intact bilaterally, moves all extremities, no focal motor deficits and no sensory deficits noted Speech: other (Delayed, soft. C/o difficulty swallowing food/gagging. No aspiration) Motor exam: no tremor noted Psych Mood and affect: flat affect (Flat facies) Thought process: confused (Confused at times. Poor short term memory) Insight: limited Progress Note: Objective Labs Labs: Short CBC 09/08/23 Range/Units 04:49 WBC 3.8 L (4.0-11.0) 10^3/uL Hgb 12.0 (12.0-16.0) g/dL Hct 37.4 (36.0-48.0) % Plt Count 176 (150-450) 10^3/uL BMP 09/08/23 04:49 Sodium 145 Potassium 3.1 L Chloride 111 H Carbon Dioxide 25.5 BUN 17.0 Creatinine 0.48 L Glucose 86 Calcium 8.4 L Liver Function 09/08/23 Range/Units 04:49 Total Bilirubin 0.3 (0.2-1.0) mg/dL AST 11 L (15-37) U/L ALT <6 L (14-59) U/L Alkaline Phosphatase 47 (46-116) U/L Albumin 2.9 L (3.4-5.0) g/dL Imaging MRI - head: Attestation: I have reviewed the pertinent imaging results. Radiologist's impression: IMPRESSION: 1. No acute ischemia. 2. Mild chronic microangiopathy. Progress Note: A&P Assessment and Plan (1) Acute alteration in mental status: Assessment and Plan: Acute * Mentation persistently off from baseline w/ increased confusion, intermittent aphasia, and excessive somnolence * Change to inpatient status for medically necessary hospital care, more than 2 midnights expected * Unclear etiology * Suspect progression of chronic parkinson's disease (?? Lewy Body) and/or adverse SE from Lyrica and/or dehydration * Waxing and waning symptoms for several weeks, much worse x 2 weeks * Intermittent expressive aphasia w/ nonsensical speech. Pt is aware she is not speaking correctly during these episodes. Last episode 1 week ago. * Increased forgetfulness/dementia symptoms x 2-3 weeks * Continue to hold Lyrica (newly prescribed 2 weeks ago) * Consult TeleNeuro - we appreciate their assistance with this pt's care * Consult pending this afternoon * Pt has been unable to follow up with her usual outpatient neurology practice * CT brain unremarkable * MRI brain unremarkable (2) Dehydration: Assessment and Plan: Acute * Pre-renal azotemia persists, improving clinical dehydration * Continue NS at 100/hr for hydration * CMP daily (3) Hypokalemia: Assessment and Plan: Acute * Mild, K+ 3.1 on AM labs * KCL 40 mEq PO x 1 * CMP daily (4) Dysphagia: Assessment and Plan: Subacute * Pt c/o of worsening ability to swallow w/ frequent gagging * Denies aspiration events * suspect 2/2 exacerbation of baseline Parkinson's disease * Consult [facility] for eval and treat (5) Weakness: Assessment and Plan: Acute on Chronic * Poor mobility at baseline, much worse in the last month w/ severe BLE cramping * Normal electrolytes/mag level * Continue PT/OT treatment (6) Protein calorie malnutrition: Assessment and Plan: Acute on Chronic * Family reports 11 lb + weight loss since May * Historically poor eater, but significant appetite suppression in the last 2 weeks * Consult messenger copy * Continue Ensure BID pending dietary recommendations (7) Parkinson disease: Assessment and Plan: Chronic * Continue home Sinemet, baclofen pending recommendations from TeleNeurology * Hold home Lyrica d/t possible adverse effects on mentation * See above (8) Depression with anxiety: Assessment and Plan: Chronic * Continue home Sertraline and lorazepam (9) Glaucoma: Assessment and Plan: Chronic * Continue home brimonidine and timolol eye gtts Qualifiers: Glaucoma type: unspecified Laterality: bilateral Qualified Code(s): H40.9 - Unspecified glaucoma (10) GERD (gastroesophageal reflux disease): Assessment and Plan: Chronic * Continue home PPI Qualifiers: Esophagitis presence: esophagitis presence not specified Qualified Code(s): K21.9 - Gastro-esophageal reflux disease without esophagitis Urinary Catheter Management Urinary Catheter Management Straight: Cath placed during this visit: yes Urethral indwelling: No Insertion date: 09/07/23
--- NOTE | 2023-09-08 15:34 | SWNOTE1 ---
SOILA spoke to nurse practitioner and pt is not leaving today. SOILA notified Nersi at [facility].
[2023-09-08] MEDS: ENOXAPARIN SODIUM 40 MG/0.4 ML SYRINGE SUBQ (20:58)
[2023-09-09 03:58] VITALS: BP 152/78; PULSE 91; TEMP 36.6; O2SAT 91
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
[2023-09-09 04:50] LABS: Basophils Percent Auto 0.6 % (0.2-2.0); Eosinophils Absolute Auto 0.1 10^3/uL (0.0-0.7); Eosinophils Percent Auto 1.2 % (0.9-7.0); Hematocrit 39.7 % (36.0-48.0); Hemoglobin 12.9 g/dL (12.0-16.0); Immature Granulocytes Abs Auto 0.02 10^3/uL (0.00-0.03); Immature Granulocytes Pct Auto 0.4 % (0.0-0.5); Lymphocytes Absolute Auto 0.5 10^3/uL (1.2-3.8); Lymphocytes Percent Auto 10.5 % (20.5-60.0); Mean Corpuscular HGB Conc 32.5 g/dL (29.9-35.2); Mean Corpuscular Hemoglobin 29.2 pg (26.7-34.0); Mean Corpuscular Volume 89.8 fL (81.0-99.0); Mean Platelet Volume 9.6 fL (9.5-13.5); Monocytes Absolute Auto 0.5 10^3/uL (0.3-0.8); Monocytes Percent Auto 9.7 % (1.7-12.0); Neutrophils Absolute Auto 3.9 10^3/uL (1.4-6.5); Neutrophils Percent Auto 77.6 % (43.0-75.0); Platelet Count 198 10^3/uL (150-450); Red Blood Count 4.42 10^6/uL (4.20-5.40); Red Cell Distribution Width 12.8 % (11.0-15.0); White Blood Count 5.1 10^3/uL (4.0-11.0)
[2023-09-09 05:06] LABS: Alanine Aminotransferase 14 U/L (14-59); Albumin Globulin Ratio 1.2; Albumin Level 3.3 g/dL (3.4-5.0); Alkaline Phosphatase 57 U/L (46-116); Anion Gap 14.5; Aspartate Amino Transferase 11 U/L (15-37); BUN Creatinine Ratio 11.9; Bilirubin Total 0.6 mg/dL (0.2-1.0); Calcium 8.9 mg/dL (8.5-10.1); Carbon Dioxide 22.8 mmol/L (21.0-32.0); Chloride 108 mmol/L (98-107); Estimated GFR (African America >60 (>=60); Estimated GFR (Non-African Ame >60 (>=60); Globulin 2.7 g/dL; Glucose 103 mg/dL (74-106); Potassium 3.3 mmol/L (3.5-5.1); Sodium 142 mmol/L (136-145)
[2023-09-09] MEDS: BACLOFEN 10 MG TABLET PO ×2 (06:44→13:26)
[2023-09-09] MEDS: OMEPRAZOLE 40 MG CAPSULE.DR PO (06:44)
[2023-09-09] MEDS: CARBIDOPA/LEVODOPA CR 25-100 MG TABLET 2 TAB PO ×4 (06:46→13:26)
[2023-09-09] MEDS: ARTIFICIAL TEARS 300 DROP/15 ML BOTTLE OP ×2 (06:46→13:27)
[2023-09-09] MEDS: BRIMONIDINE TARTRATE 0.15 % OP SOL 100 DROP/5 ML BOTTLE EYE-BOTH ×2 (06:47→13:26)
[2023-09-09] MEDS: 0.9 % SODIUM CHLORIDE 1,000 ML 100 ML IV (06:48)
[2023-09-09] MEDS: SERTRALINE HCL 50 MG TABLET PO (08:25)
[2023-09-09] MEDS: SERTRALINE HCL 100 MG TABLET PO (08:25)
[2023-09-09] MEDS: LACTOSE -REDUCED (ENSURE ORIGINAL 237 ML LIQUID) PO (08:25)
[2023-09-09] MEDS: TIMOLOL MALEATE 0.5% OP SOL 100 DROPS/5 ML BOTTLE 1 DROP OP (08:25)
[2023-09-09] MEDS: PSYLLIUM SUGAR FREE 5.8 GM POWDER PACKET PO (08:25)
[2023-09-09 08:31] VITALS: BP 117/74; PULSE 105; TEMP 36.8; O2SAT 94
[2023-09-09] MEDS: RIVASTIGMINE 4.6 MG TD (10:54)
--- NOTE | 2023-09-09 11:24 | PT.DAILY ---
Physical Therapy Daily Note PT Daily Note/Assess Start: 09/09/23 11:18 Freq: Status: Active Protocol: Document 09/09/23 11:18 SCOTT (Rec: 09/09/23 11:24 SCOTT [id number]) Physical Therapy Daily Note/Assessment Time In/Time Out Time In 10:00 Time Out 10:12 Pain In Pain N/A Pain Out Pain N/A Subjective Subjective Pt supine upon arrival. Agrees to PT. Therapeutic Activity Time Therapeutic Activity Minutes (minutes) 9 Therapeutic Activity Units 1 Therapeutic Activity Treatment Bed Mobility Ability Moderate Assist Chair Transfer Ability Moderate Assist Therapeutic Activity Comments Supine>sit with ModA to advance upper body and lower body to sit EOB. Able to sit EOB unsupported without LOB while socks are donned. Pt sit >stand to RW with ModA. Static standing with Lydia while pericare performed by nursing and brief is pulled up. Pt amb 5' to BS chair with ModA and needs assistance for RW negotiation and vc for foot placement - increased time needed for this. Total Physical Therapy Time Total Therapy Minutes 9 Total Physical Therapy Units 1 Summary Daily Note Summary Cont to be very rigid with gait requiring assistance for RW negotiation and vc for foot placement/step sequence.
[2023-09-09 11:34] VITALS: BP 146/84; PULSE 81; TEMP 36.6; O2SAT 98
--- NOTE | 2023-09-09 11:54 | CM.NOTE ---
Rounds made with Dr. Dhaliwal, awaiting for pt to be seen by teleneuro to decide discharge plan for patient.
--- NOTE | 2023-09-09 12:25 | SWNOTE1 ---
SOILA called and spoke with pt's sister in law, Hetal. SW let her know that we are waiting for pt to have a teleneuro visit and if they clear her she will be ready for dc today. SW to let nursing know that Hetal would like to speak to them as well. Plan is for pt to go to [facility] and it will be private pay for rehab. Hetal has spoke to Neris at [facility] to discuss finances. Important Message from Medicare reviewed and discussed with patient's sister over the phone. Pt's sister verbalized understanding and SOILA signed form on behalf of pt's sister . Original placed in pt's room and copy placed in patient?s chart.
--- NOTE | 2023-09-09 13:22 | PT.DAILY ---
Physical Therapy Daily Note PT Daily Note/Assess Start: 09/09/23 11:18 Freq: Status: Active Protocol: Document 09/09/23 13:07 LAURYMACYRAUL (Rec: 09/09/23 13:21 [id number]) Physical Therapy Daily Note/Assessment Time In/Time Out Time In 12:25 Time Out 13:07 Pain In Pain N/A Pain Out Pain N/A Subjective Subjective Pt sitting in BS chair upon arrival - with family/friends present. Agrees to another PT session. No new complaints. Therapeutic Exercise Time Therapeutic Exercise Minutes (minutes) 15 Therapeutic Exercise Units 1 Therapeutic Exercise Treatment Therapeutic Exercise Treatment Seated Ap, LAQ, marches, abd step outs, add squeezes 10x ea actively. Passive pf/df, hs stretches and adductor stretches in BS chair 3 x 5-10 sec ea. UE flexion, scaption horizontal abd, and abd 10x. Diagonal reaches across body to therapist trying to touch my hand at different heights and lengths 10x ea. [place] hand reaching to opp hip with diagonal lift 10x ea. All complete prior to gait/ transfer training. Therapeutic Activity Time Therapeutic Activity Minutes (minutes) 15 Therapeutic Activity Units 1 Therapeutic Activity Treatment Chair Transfer Ability Moderate Assist Therapeutic Activity Comments Sit>stand from BS chair with ModA due to posterior lean. Needs tactile to shift hips forward for erect posture - cont to have min forward flexed posture with static standing. Pt takes 3 steps forwards and retro with cues for foot placement and to widen stance - Lydia using RW. Pt needs assistance moving her hand from RW to arm rest but then is able to slowly lower herself to chair. Second attempt: sit>stand ModA due to posterior lean. Able to straighten up with less vc and tactile cues this attempt but unable to advance R foot on command. Pt stands statically at RW for 4 min before needing rest break. Third attempt: sit>stand ModA with vc and tactile cues to straighten up. Able to march in place with L but still unable to advance R. Pt reports she's having a brain fade and cant get her R foot to cooperate. Pt return to BS chair with feet elevated and call light within reach and family/friends present. Total Physical Therapy Time Total Therapy Minutes 30 Total Physical Therapy Units 2 Summary Daily Note Summary Good tolerance to seated ex prior to gait. Gait improved from this morning during first attempt but last two attempts were unsuccessful. Would benefit from SNF to regain functional strength and mobility.
--- NOTE | 2023-09-09 14:55 | P.DS_ITS ---
<Statement entered by Bernadette Dhaliwal DO - 09/10/23 09:50> This documentation has been reviewed and approved.I have also seen and assessed patient and agree to the above findings and plan of care and discharge planning. DS: Providers Provider Date of admission: 09/08/23 15:45 Primary care physician: ELLY SUNSHINE Consults: 09/07/23 Consult to Dietitian Routine Reason for consultation: poor appetite Has provider been notified: No 09/07/23 14:08 Consult to TeleNeurology Routine Reason for consultation: AMS, ?? Parkinsons progression vs other. No focal weakness Occupational Therapy Eval and Treat Routine Reason for consultation: Parkinsons, weakness, near fall Has provider been notified: No Physical Therapy Eval and Treat Routine Reason for consultation: Parkinsons, weakness, near fall 09/07/23 16:11 Consult to Dietitian Routine Reason For Exam: 11 lb+ weight loss since May Reason for consultation: 11 lb+ weight loss since May Has provider been notified: No 09/08/23 09:59 Speech Therapy Eval and Treat Routine Reason for consultation: c/o difficulty swallowin/gagging. Hx of parkinsons Has provider been notified: No Discharging clinician: Olga Villegas DS: Diagnosis Discharge Diagnosis (1) Acute alteration in mental status: (2) Dehydration: (3) Hypokalemia: (4) Dysphagia: (5) Weakness: (6) Protein calorie malnutrition: (7) Parkinson disease: (8) Depression with anxiety: (9) Glaucoma: Qualifiers: Glaucoma type: unspecified Laterality: bilateral Qualified Code(s): H40.9 - Unspecified glaucoma (10) GERD (gastroesophageal reflux disease): Qualifiers: Esophagitis presence: esophagitis presence not specified Qualified Code(s): K21.9 - Gastro-esophageal reflux disease without esophagitis DS: Summary Hospital Course Hospital Course: The patient was admitted with acute altered mental status and generalized weakness in setting of chronic Parkinson's disease. We clinically suspected a new prescription of Lyrica was contributing to her symptoms, but could not rule out progression of her chronic Parkinson's disease. Lyrica was held on admission. She was seen in consult by neurology and they concurred that Lyrica should be held. They also made some adjustments with her Sinemet dosing and added an Exelon patch. The patient's symptoms significantly improved with these medication adjustments. She experienced some possible dysphagia, complaining of gagging when trying to swallow food, but no evidence of aspiration. She was seen in consult by CUSTOMER SUPPLY CHAIN ANALYST services as well as PT and OT during her stay. She is being discharged in stable condition to a local SNF for aggressive rehab therapy with PT/OT/CUSTOMER SUPPLY CHAIN ANALYST per neurology recommendations. She is to follow-up with Dr. Delacruz, her usual neurologist, as soon as possible to review her medications again, as further adjustments may be indicated. Time Spent with Patient Time attestation: Total time spent providing and/or coordinating discharge services: Time spent: greater than 30 minutes Specific discharge activities: Physical exam, discussion of discharge plan, questions answered. Exam Constitutional Vital Signs, click to edit/add: Last Vital Signs Temp 97.8 F 09/09/23 11:34 Pulse 81 09/09/23 11:34 Resp 18 09/09/23 11:34 BP 146/84 H 09/09/23 11:34 Pulse Ox 98 09/09/23 11:34 O2 Del Method Room Air 09/09/23 11:34 Common normals: no apparent distress, oriented x3 and alert General appearance: cooperative Orientation/consciousness: Yes awake HENMT Common normals: normocephalic and head/scalp atraumatic Eye Common normals: PERRL, EOMs intact bilaterally, conjunctivae normal and no scleral icterus Respiratory Common normals: normal respiratory effort, no use of accessory muscles and clear to auscultation bilaterally Effort & inspection: able to speak in complete sentences and symmetric chest movement Auscultation: diminished lung sounds (MIld, BLL) Cardio Common normals: no JVD, regular rate, regular rhythm, S1 normal heart sound, S2 normal heart sound, no murmurs and peripheral pulses 2+ throughout GI Common normals: Normal to inspection, nondistended, normoactive bowel sounds present, soft to palpation and non-tender Bladder/kidney exam: bladder normal to palpation Extremity Common normals: normal to inspection, full ROM, normal capillary refill and no pedal edema General: no clubbing and no cyanosis Neuro Common normals: moves all extremities, no focal motor deficits and no sensory deficits noted Speech: speech normal Psych Common normals: mental status grossly normal and activity/motor behavior normal DS: Data Data Completed and Pending Labs on day of discharge: Labs from last 24 hours 09/09/23 04:15 WBC 5.1 RBC 4.42 Hgb 12.9 Hct 39.7 MCV 89.8 MCH 29.2 MCHC 32.5 RDW 12.8 Plt Count 198 MPV 9.6 Neut % (Auto) 77.6 H Lymph % (Auto) 10.5 L [place] % (Auto) 9.7 Eos % (Auto) 1.2 Baso % (Auto) 0.6 Neut # (Auto) 3.9 Lymph # (Auto) 0.5 L [place] # (Auto) 0.5 Eos # (Auto) 0.1 Baso # (Auto) 0.0 Abs Immat Gran (auto) 0.02 Imm/Tot Granulo (auto) 0.4 Sodium 142 Potassium 3.3 L Chloride 108 H Carbon Dioxide 22.8 Anion Gap 14.5 BUN 7.0 Creatinine 0.59 Est GFR ( Amer) >60 Est GFR (Non-Af Amer) >60 BUN/Creatinine Ratio 11.9 Glucose 103 Calcium 8.9 Total Bilirubin 0.6 AST 11 L ALT 14 Alkaline Phosphatase 57 Total Protein 6.0 L Albumin 3.3 L Globulin 2.7 Albumin/Globulin Ratio 1.2 Discharge Plan Discharge Disposition: Xfer SNF Discharge Medications: New carbidopa-levodopa 25-100 mg Tablet Extended Release 2 tab PO BID@0600,1400 30 Days Qty: 120 0RF carbidopa-levodopa 25-100 mg tablet 2 tab PO TID 30 Days Qty: 180 0RF Rx Instructions: Take at 0600, 1000, and 1400. Avoid waking pt to give doses rivastigmine 4.6 mg/24 hour Patch 24 Hour 4.6 mg transdermal QD 30 Days Qty: 30 0RF Continued baclofen 10 mg tablet 10 mg PO Q8H Patient Comments: 0600,1400,2200 sertraline 50 mg tablet 50 mg PO DAILY acetaminophen 500 mg tablet 1,000 mg PO Q8H PRN (Reason: fever or pain) Metamucil 3.4 gram/5.4 gram powder 1 tbsp PO DAILY Rx Instructions: mix into at least 8 oz of water or juice before administering carboxymethylcellulose sodium 1 % drops, liquid gel 2 drp ophthalmic (eye) TID mirtazapine [Remeron] 15 mg tablet 15 mg PO .qhs PRN (Reason: sleep) mirtazapine [Remeron] 15 mg tablet 30 mg PO .qhs PRN (Reason: sleep) sertraline 100 mg tablet 100 mg PO DAILY omeprazole 40 mg capsule,delayed release(DR/EC) 40 mg PO .acb brimonidine 0.2 % drops 2 drp OPHTHALMIC (EYE) TID timolol maleate 0.5 % drops 1 drp OPHTHALMIC (EYE) QAM melatonin 5 mg tablet 5 mg PO BEDTIME bisacodyl [Laxative (bisacodyl)] 10 mg suppository 10 mg ND DAILY PRN (Reason: constipation) calcium carbonate [Calcium 500] 500 mg calcium (1,250 mg) tablet,chewable 1,000 mg PO Q2H PRN (Reason: dyspepsia) lorazepam [Ativan] 0.5 mg tablet 0.25 mg PO BID PRN (Reason: anxiety) loperamide [Anti-Diarrheal (loperamide)] 2 mg capsule 2 mg PO Q6H PRN (Reason: loose stool) cholecalciferol (vitamin D3) 50 mcg (2,000 unit) capsule 50 mcg PO DAILY Discontinued pregabalin [Lyrica] 50 mg capsule 50 mg PO BID carbidopa-levodopa 25-100 mg tablet extended release 1 tab PO .5x Rx Instructions: 0600,1000,1400,1800,2200 Print Language: Yoruba Activity Restrictions/Additional Instructions: - Aggressive PT/OT/CUSTOMER SUPPLY CHAIN ANALYST services daily for strengthening - Ensure Original or appropriate formulary substitution BID - Give carbidopa-levodopa IR doses at 0600, 1000, and 1400 - Give carbidopa-levodopa CR doses at 0600 and 1400 - avoid waking pt to give doses if possible. Give during usual awake hours. Forms: Portal Instructions Follow Up Appointments: - Follow up with Dr Delacruz as soon as possible. Appointment scheduled for September 30 12:00 (Tiffanie
--- NOTE | 2023-09-09 15:13 | CM.NOTE ---
Faxed discharge summary and med list to [facility].
--- NOTE | 2023-09-09 15:51 | SWNOTE1 ---
Pt is good to be discharged to [facility], she is going there skilled private pay. SOILA spoke with nurse and she is going to be calling sister in law and will let her know dc time. Case management faxed over dc med rec and dc summary. Case management also called Neris at [facility] and let her know time. SOILA completed HENS. SOILA set up trips for 4:15-4:45. SOILA notified nurse of time and [facility].
--- NOTE | 2023-09-09 15:55 | CM.NOTE ---
Called and scheduled a f/u appt with Dr. Delacruz . September 30 at 12:00 updated discharge paperwork.
== END 2023-09-09 17:00 | DRG 57 ==
LOC: ER 14:00 → MS 14:17
PROVIDERS: Admitting Provider Family Medicine; Emergency Provider Emergency Medicine; PCP Family Medicine; Visit Provider Nurse Practitioner
DX: G20.A1 Parkinson's disease without dyskinesia, without mention of fluctuations (principal); E44.0 Moderate protein-calorie malnutrition; R47.01 Aphasia; E86.0 Dehydration; R79.89 Other specified abnormal findings of blood chemistry; R53.1 Weakness; H40.9 Unspecified glaucoma; K21.9 Gastro-esophageal reflux disease without esophagitis; Z79.899 Other long term (current) drug therapy; Z66 Do not resuscitate; Z90.710 Acquired absence of both cervix and uterus; M81.0 Age-related osteoporosis without current pathological fracture; E87.6 Hypokalemia; R13.10 Dysphagia, unspecified; Z68.20 Body mass index [BMI] 20.0-20.9, adult; F41.8 Other specified anxiety disorders; R40.0 Somnolence; Z85.89 Personal history of malignant neoplasm of other organs and systems; Z98.51 Tubal ligation status; Z91.81 History of falling
CPT/HCPCS: 36415; 51798; 70450; 70551; 71045; 80053; 81001; 82140; 83735; 84443; 85025; 87086; 92526; 92610; 93005; 96361; 96372; 96374; 97110; 97161; 97165; 97530; 97535; 99285; G0378; J1650; J2060; Q3014

== ENCOUNTER 2023-10-03 10:43 | Inpatient (IN) | payer MEDICARE, OTHER, SELFPAY ==
[2023-10-03] VITALS (10 sets, daily range): BP systolic 121–157; BP diastolic 68–88; PULSE 80–115; TEMP 36.6–37.5; O2SAT 94–99; BMI 17.8; BMI 18.0
--- NOTE | 2023-10-03 10:54 | CT_ITS ---
The [address] [address] Patient Name: ARMANDO MÁRQUEZ MRN: [id number] date: 1955 Sex: F Assigned Patient Location: ER Current Patient Location: Accession/Order Number: [id number] Exam Date: 10/03/2023 11:13 Report Date: 10/03/2023 12:17 At the request of: VANESSA BURT Procedure: CT pelvis wo con EXAM: CT pelvis wo con HISTORY: fall . Fall from standing unwitnessed, pelvic injury/pain. History of endometrial malignancy. COMPARISON: No prior plain films. CT abdomen pelvis 01/29/2023 and earlier. TECHNIQUE: CT pelvis noncontrast. Axial scans with reformatted coronal and sagittal images. Individualized radiation dose reduction technique used for this exam. FINDINGS: Nondisplaced fracture of the distal left sacrum with mild soft tissue thickening but no significant hematoma. This is no. Marrows demineralized in this area but no cortical erosion is seen. Probably due to osteoporosis. No other fracture seen. Areas of demineralization also noted elsewhere including May right left acetabulum unchanged. Left proximal femur hardware again noted with artifact but no fracture in this area. Normal hip joints. Mild degenerative changes lower lumbar spine without fracture. Pelvic soft tissues demonstrate slight thickening in the area of the fracture noted above but no significant fluid collection or hematoma. Colonic diverticulosis without diverticulitis. Fluid-filled bladder. Surgical clips within the pelvis, no increasing adenopathy CT/CT pelvis wo con IMPRESSION: 1. Nondisplaced distal sacral/coccygeal fracture without significant adjacent hematoma. Transaxial series 4 images 35, 36. 2. No other fracture seen. 3. Bones are markedly demineralized especially in the sacrococcygeal area and acetabular areas but no definite cortical erosion or break. 4. No significant intrapelvic fluid collection or hematoma. No increasing adenopathy or evidence of metastatic disease. Electronically authenticated by: CARLOS ENRIQUE CEBALLOS Date: 10/03/2023 12:17
--- NOTE | 2023-10-03 10:54 | CT_ITS ---
The [address] [address] Patient Name: ARMANDO MÁRQUEZ MRN: [id number] date: 1955 Sex: F Assigned Patient Location: ED.MAIN Current Patient Location: ER Accession/Order Number: [id number] Exam Date: 10/03/2023 11:13 Report Date: 10/03/2023 12:00 At the request of: VANESSA BURT Procedure: CT cervical spine wo con EXAM: CT cervical spine wo con HISTORY: fall . Fall from standing, neck injury. COMPARISON: None. TECHNIQUE: CT cervical spine noncontrast. Axial scans with reformatted coronal sagittal images. Individualized radiation dose reduction technique used for this exam. FINDINGS: Normal alignment. No fracture or suspicious focal bone lesion. Normal disc spaces. Minimal spurring. Prevertebral soft tissues unremarkable. Mild to moderate facet DJD. Lower neck upper mediastinal soft tissues unremarkable, lung apices clear. No mass or adenopathy.. CT/CT cervical spine wo con IMPRESSION: Negative for fracture or subluxation. Electronically authenticated by: CARLOS ENRIQUE CEBALLOS Date: 10/03/2023 12:00
--- NOTE | 2023-10-03 10:54 | CT_ITS ---
The [address] [address] Patient Name: ARMANDO MÁRQUEZ MRN: [id number] date: 1955 Sex: F Assigned Patient Location: ED.MAIN Current Patient Location: ER Accession/Order Number: [id number] Exam Date: 10/03/2023 11:13 Report Date: 10/03/2023 11:57 At the request of: VANESSA BURT Procedure: CT head/brain wo con EXAM: CT head/brain wo con HISTORY: trauma . Unwitnessed fall from standing, closed cranial trauma. COMPARISON: 09/07/2023 TECHNIQUE: CT head/brain noncontrast. Axial scans with reformatted coronal and sagittal images. Individualized radiation dose technique used for this exam FINDINGS: No hemorrhage mass or acute edema. No extra-axial collection. Mild atrophy. Areas of mild deep white matter low-attenuation felt to be chronic. No change. No ventricular compression or shift. Incidental basal ganglia calcification unchanged. No fracture noted. Visualized mastoids, middle ear cavities and sinuses clear. CT/CT head/brain wo con IMPRESSION: Stable head CT without new or acute appearing abnormality. No hemorrhage or fracture. Electronically authenticated by: CARLOS ENRIQUE CEBALLOS Date: 10/03/2023 11:57
--- NOTE | 2023-10-03 10:59 | ED_ITS ---
HPI HPI - Fall General Chief Complaint: Fall Stated Complaint: FALL Time Seen by Provider: 10/03/23 10:53 Source: patient Mode of arrival: Wheelchair Limitations: no limitations and physical limitation History of Present Illness HPI Narrative: The patient have history of Parkinson's coming to us after she had a fall yesterday in the assisted living she mentioned that the fall happened last night. And the she tripped and fell backwards after tripping over a blanket. The patient called right away for help. She has been complaining of bilateral hip pain mostly in the right side. Denying any head injury or loss of consciousness. She also denies any symptoms before this fall Related Data Home Medications ?Medication ?Instructions ?Recorded ?Confirmed bisacodyl 10 mg rectal suppository 10 mg AL DAILY PRN constipation 01/27/23 10/03/23 (Laxative (bisacodyl)) brimonidine 0.2 % eye drops 2 drp ophthalmic (eye) TID 01/27/23 10/03/23 calcium carbonate (Calcium 500) 1,000 mg PO Q2H PRN dyspepsia 01/27/23 10/03/23 melatonin 5 mg tablet 5 mg PO BEDTIME sleep 01/27/23 10/03/23 omeprazole 40 mg capsule,delayed 40 mg PO .acb 01/27/23 10/03/23 release sertraline 100 mg tablet 100 mg PO DAILY 01/27/23 10/03/23 timolol maleate 0.5 % eye drops 1 drp ophthalmic (eye) QAM 01/27/23 10/03/23 cholecalciferol (vitamin D3) 50 50 mcg PO DAILY 01/28/23 10/03/23 mcg (2,000 unit) capsule loperamide 2 mg capsule 2 mg PO Q6H PRN loose stool 01/28/23 10/03/23 (Anti-Diarrheal (loperamide)) lorazepam 0.5 mg tablet (Ativan) 0.25 mg PO BID PRN anxiety 01/28/23 10/03/23 acetaminophen 500 mg tablet 1,000 mg PO Q8H PRN fever or pain 09/07/23 10/03/23 baclofen 10 mg tablet 10 mg PO Q8H 09/07/23 10/03/23 carboxymethylcellulose sodium 1 % 2 drp ophthalmic (eye) TID 09/07/23 10/03/23 eye liquid gel drops mirtazapine 15 mg tablet (Remeron) 15 mg PO .qhs PRN sleep 09/07/23 10/03/23 mirtazapine 15 mg tablet (Remeron) 30 mg PO .qhs PRN sleep 09/07/23 10/03/23 psyllium husk 3.4 gram/5.4 gram 1 tbsp PO DAILY 09/07/23 10/03/23 oral powder (Metamucil) sertraline 50 mg tablet 50 mg PO DAILY 09/07/23 10/03/23 Previous Rx's ?Medication ?Instructions ?Recorded carbidopa 25 mg-levodopa 100 mg 2 tab PO TID 30 days #180 tabs 09/09/23 tablet carbidopa ER 25 mg-levodopa 100 mg 2 tab PO BID@0600,1400 30 days 09/09/23 tablet,extended release #120 tabs rivastigmine 4.6 mg/24 hour 4.6 mg transdermal QD 30 days #30 09/09/23 transdermal patch ea Allergies Allergy/AdvReac Type Severity Reaction Status Date / Time bupropion [From Wellbutrin] Allergy Verified 09/07/23 11:44 Opioid HPI Opioid Management Most Recent Pain and Opioid Data: Last Pain Scale 9 10/03/23 10:51 Last ORT Total Score 0 09/07/23 14:44 Last ORT Risk Category Low Risk 09/07/23 14:44 Review of Systems ROS Status of ROS 10 or more systems reviewed and unremark able except as noted in history and below [facility] Medical History (Updated 10/03/23 @ 12:37 by Cindy Ornelas MD) Osteoporosis ?M81.0 - Age-related osteoporosis without current pathological fracture (ICD- 10) Glaucoma ?H40.9 - Unspecified glaucoma (ICD-10) Depression with anxiety ?F41.8 - Other specified anxiety disorders (ICD-10) GERD (gastroesophageal reflux disease) ?K21.9 - Gastro-esophageal reflux disease without esophagitis (ICD-10) Difficulty in walking ?R26.2 - Difficulty in walking, not elsewhere classified (ICD-10) Parkinson disease ?G20.A1 - Parkinson's disease without dyskinesia, without mention of fluctuations (ICD-10) Abdominal pain ?R10.9 - Unspecified abdominal pain (ICD-10) Surgical History H/O: hysterectomy ?Z90.710 - Acquired absence of both cervix and uterus (ICD-10) Family History Brother Family history of cancer Grandmother Family history of hypertension Family history of stroke Social History Within the past year, how often did you have a drink containing alcohol: never Score interpretation: A score less than 3 is consistent with normal alcohol consumption. Smoking status: Never smoker Non-prescribed substance use: denies use Previous occupational history: retired Known occupational exposures/hazards: No Highest level of school completed/degree received: high school graduate Are you now , , , , never or living with a partner: In a typical week, how many times do you talk on the telephone with family, friends, or neighbors: twice per week How often do you get together with friends or relatives: never How often do you attend roman catholic or mosque services: never Do you belong to any clubs or organizations such as roman catholic groups unions, [employer] or athletic groups, or school groups: yes Total score: 2 Score interpretation: A score of greater than or equal to 2 indicates the lowest level of social isolation. Little interest or pleasure in doing things: nearly every day Feeling down, depressed, or hopeless: not at all Feel stressed/tense/nervous/anxious/difficulty sleeping: not at all Life stressors: other Life stressor details: prefer not to say Do you think of yourself as: straight/heterosexual Gender Identity: female Exam Narrative Exam Narrative: Nurses notes and vital signs reviewed and patient is not hypoxic. General: Well-appearing and in no apparent distress. Skin: Warm, dry, no pallor noted. No rash. Head: Normocephalic, atraumatic. Neck: Supple, non-tender. Eye: Pupils are equal, round and EOMI. No scleral icterus. Ears, Nose, Mouth, and Throat: TM are clear, no nasal mucosal hypertrophy. Oral mucosa is moist, no posterior oropharynx erythema, uvula is mid-line Cardiovascular: Regular Rate and Rhythm without murmur, gallop or rub. Respiratory: No accessory muscle use or respiratory distress. Lungs are clear to auscultation, no wheezing, rales or rhonchi Chest Wall: no tenderness Back: No midline thoracic or lumbar vertebral tenderness. No CVA tenderness Musculoskeletal: normal ROM, no calf or popliteal tenderness, no lower extremity edema/swelling GI: Abdomen is soft, non-distended. Normal bowel sounds. No masses appreciated. There is tenderness upon palpation of bilateral hip mostly at the right and still full range of movement No tenderness to palpation. No rebound, guarding, or rigidity noted. Neurological: A&O x4. No cranial nerve dysfunction observed. No truncal ataxia. Moves all extremities. Sensation intact. Psychiatric: Cooperative and interactive. Normal mood and affect. Constitutional Vital Signs, click to edit/add: Last Vital Signs Temp 97.9 F 10/03/23 10:47 Pulse 87 10/03/23 11:11 Resp 18 10/03/23 11:11 BP 138/88 10/03/23 11:32 Pulse Ox 99 10/03/23 11:11 O2 Del Method Room Air 10/03/23 10:47 Course Vital Signs Vital signs: Vital Signs Temperature 97.9 F 10/03/23 10:47 Pulse Rate 99 H 10/03/23 10:47 Respiratory Rate 18 10/03/23 10:47 Blood Pressure 157/76 H 10/03/23 10:47 Oxygen Delivery Method Room Air 10/03/23 10:47 Temperature 97.9 F 10/03/23 10:47 Pulse Rate 87 10/03/23 11:11 Respiratory Rate 18 10/03/23 11:11 Blood Pressure 138/88 10/03/23 11:32 Pulse Oximetry 99 10/03/23 11:11 Oxygen Delivery Method Room Air 10/03/23 10:47 MDM - Fall MDM Narrative Medical decision making narrative: The patient blood workup shows some mild hypokalemia-----corrected with p.o. potassium Patient was treated initially with Toradol CT of the head as well as CT cervical spine showed no acute pathology CT of the pelvis shows a nondisplaced sacral fracture The patient is still on unable to ambulate because of the pain she will be admitted for further evaluation of her sacral fracture. The patient will need further pain control and evaluation for physiotherapy as well after the fall and the fracture, patient will need assistance as she lives by herself although in assisted living and right now she is not able to to get out of the bed because of the pain. Usually sacral fracture nondisplaced will not require any further surgery but definitely pain management and evaluation The patient care was discussed with Dr. Gamboa and he agreed with above-mentioned plan Lab Data Labs: Lab Results 10/03/23 Range/Units 11:03 Sodium 141 (136-145) mmol/L Potassium 3.0 L (3.5-5.1) mmol/L Chloride 99 (98-107) mmol/L Carbon Dioxide 27.0 (21.0-32.0) mmol/L Anion Gap 18.0 BUN 12.0 (7.0-18.0) mg/dL Creatinine 0.62 (0.55-1.02) mg/dL Est GFR ( Amer) >60 (>=60) Est GFR (Non-Af Amer) >60 (>=60) BUN/Creatinine Ratio 19.4 Glucose 150 H (74-106) mg/dL Calcium 9.2 (8.5-10.1) mg/dL Total Bilirubin 0.9 (0.2-1.0) mg/dL AST 14 L (15-37) U/L ALT 9 L (14-59) U/L Alkaline Phosphatase 100 (46-116) U/L Total Protein 6.9 (6.4-8.2) g/dL Albumin 3.7 (3.4-5.0) g/dL Globulin 3.2 g/dL Albumin/Globulin Ratio 1.2 Blood Type A Positive Antibody Screen Negative Discharge Plan Discharge Chief Complaint: Fall Clinical Impression: Acute hypokalemia Closed sacral fracture Qualifiers: Encounter type: initial encounter Zone of sacrum fracture: unspecified portion of sacrum Qualified Code(s): S32.10XA - Unspecified fracture of sacrum, initial encounter for closed fracture Fall Qualifiers: Encounter type: initial encounter Qualified Code(s): W19.XXXA - Unspecified fall, initial encounter Patient Disposition: Admitted As Inpatient Time of Disposition Decision: 12:36
--- OUTSIDE RECORDS SUMMARY | 2023-10-03 10:59 | XMS_ITS | CCD ---
Author Organization [facility] Care Team Providers Care Tile Grinder Name Role Phone FANNING, RICARDO E Unavailable Unavailable FANNING, RICARDO E Unavailable Unavailable PAY ., DR DAVID Admitting Unavailable PAY ., DR DAVID Attending Unavailable JASPREET, DR SANABRIA Primary Care Unavailable PAY ., DR DAVID Consulting Unavailable GRECHNY ., SALLY CARABALLO Consulting Unavailenrike Vogel MD, [facility] Primary Care Provider [phone] Enrico CIVIL ENGINEERING DESIGNER, Saira Pelaez Unavailable Enrico CIVIL ENGINEERING DESIGNER, Saira Pelaez Unavailable Jaspreet COLEMAN, [facility] Primary Care Provider SAIRA PROCTOR Attending Unavailable SHASHI SERVIN Attending Unavailab SAIRA Preston Attending Unavailable SAIRA PROCTOR Attending Unavailable SHASHI SERVIN Attending Unavailab SAIRA Preston Attending Unavailable SHASHI SERVIN Attending Unavailab HOANG Barrera Attending Unavailable EVE SALAS Attending Unavailable SHEA VOGEL Referring Unavailable JASPREET SHEA Augie Primary Care Unavailable EVE SALAS Attending Unavailable SHEA VOGEL Referring Unavailable JASPREET [facility] Primary Care Unavailable JASPREET SHEA Augie Primary Care Unavailable BELINDA DUMONT Consulting Unavailabl e INPATIENT, TELENEUROLOGY Consulting Unavail able Allergies Allergy Classification Reported Allergen(s) Allergy Type Date of Onset Reaction(s) Facility (1 source) buPROPion Drug Allergy [address] [facility] Repository (4 sources) buPROPion Drug Allergy 3 Unknown [facility] Healthcare (5 sources) buPROPion; Translations: [BUPROPION HCL] Drug Allergy 2 [facility] Medications Current Medications Medication Drug Class(es) Dates [...] 8 (eight) hours if needed for anxiety 1/2 tab bid prn for anxiety. 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 [address] [place] [address] Dr. Harris Perdomo CBC AUTO DIFFon 08-26-2022 BASO # 0.0 103/ul Normal 0.0-0.1 [facility] Comment on above: Performed By: #### C BC #### [facility] [address] [place] [address] Dr. Harris Perdomo Basophils/100 WBC (Bld) 0.4 % Normal 0.2-2.0 [facility] Comment on above: Performed By: #### C BC #### [facility] [address] [place] [address] Dr. Harris Perdomo EO # 0.0 103/ul Normal 0.0-0.[address] [facility] Comment on above: Performed By: #### C BC #### [facility] [address] [place] [address] Dr. Harris Perdomo Eosinophils/100 WBC (Bld) 0.2 % Critically low 0.9-7.0 [facility] Comment on above: Performed By: #### C BC #### [facility] [address] [place] [address] Dr. Harris Perdomo Erythrocyte distribution width (RBC) [Ratio] 12.1 % Normal 11.0-15.0 [facility] Comment on above: Performed By: #### C BC #### [facility] [address] [place] [address] Dr. Harris Perdomo Hematocrit (Bld) [Volume fraction] 39.3 % Normal 36.0-48.0 [facility] Comment on above: Performed By: #### C BC #### [facility] [address] [place] [address] Dr. Harris Perdomo Hemoglobin (Bld) [Mass/Vol] 13.3 g/dL Normal 12.0-16.0 [facility] Comment on above: Performed By: #### C BC #### [facility] [address] [place] [address] Dr. Harris Perdomo IG # 0.00 10e3/ul Normal 0.00-0.03 [facility] Comment on above: Performed By: #### C BC #### [facility] [address] [place] [address] Dr. Harris Perdomo IG % 0.0 % Normal 0.0-0.5 [facility] Comment on above: Performed By: #### C BC #### [facility] [address] [place] [address] Dr. Harris Perdomo LYMPH # 0.5 103/ul Critically low 1.2-3.8 [facility] Comment on above: Performed By: #### C BC #### [facility] [address] [place] [address] Dr. Harris Perdomo Lymphocytes/100 WBC (Bld) 10.2 % Critically low 20.5-60.0 [facility] Comment on above: Performed By: #### C BC #### [facility] [address] [place] [address] Dr. Harris Perdomo MANUAL DIFF REQ NO Normal [facility] Comment on above: Performed By: #### C BC #### [facility] [address] [place] [address] Dr. Harris Perdomo MCH (RBC) [Entitic mass] 30.6 pg Normal 26.7-34.0 [facility] Comment on above: Performed By: #### C BC #### [facility] [address] [address] [address] Harris Perdomo MCHC (RBC) [Mass/Vol] 33.8 g/dL Normal 29.9-35.2 [facility] Comment on above: Performed By: #### C BC #### [facility] [address] [place] [address] Dr. Harris Perdomo MCV (RBC) [Entitic vol] 90.6 fL Normal 81.0-99.0 [facility] Comment on above: Performed By: #### C BC #### [facility] [address] [place] [address] Dr. Harris Perdomo MONO # 0.3 103/ul Normal 0.3-0.8 [facility] Comment on above: Performed By: #### C BC #### [facility] [address] [place] [address] Dr. Harris Perdomo Monocytes/100 WBC (Bld) 6.2 % Normal 1.7-12.0 [facility] Comment on above: Performed By: #### C BC #### [facility] [address] [place] [address] Dr. Harris Perdomo NEUT # 4.3 103/ul Normal 1.4-6.5 [facility] Comment on above: Performed By: #### C BC #### [facility] [address] [place] [address] Dr. Harris Perdomo Neutrophils/100 WBC (Bld) 83.0 % Critically high 43.0-75.0 [facility] Comment on above: Performed By: #### C BC #### [facility] [address] [place] [address] Dr. Harris Perdomo Platelet mean volume (Bld) [Entitic vol] 8.3 fL Critically low 9.5-13.5 [facility] Comment on above: Performed By: #### C BC #### [facility] [address] [place] [address] Dr. Harris Perdomo PLT 251 103/ul Normal 150-[address] [facility] Comment on above: Performed By: #### C BC #### [facility] [address] [address] [address] Harris Perdomo RBC 4.34 106/ul Normal 4.20-5.[address] [facility] Comment on above: Performed By: #### C BC #### [facility] [address] [place], [place] [address] Dr. Harris Perdomo WBC 5.2 103/ul Normal 4.0-11.0 [facility] Comment on above: Performed By: #### C BC #### [facility] [address] [place] [address] Dr. Harris Perdomo [facility] SARS-CoV-2 (COVID-19) RNA JOSE G+probe Ql (Unsp spec) Not detected Normal NOT DETECTED [facility] Comment on above: Result Comment: When [...] for this test is supported by the First Officer And Flight Instructor of Health and Human Service's declaration that [...] used). Performed By: #### C VDTBH #### [facility] [address] [place] [address] Dr. Harris Perdomo DRUG SCREEN RAPID (URINE)on 08-26-2022 AMP Negative Normal NEGATIVE [facility] Comment on above: Performed By: #### E RUR, DRUGRPD #### [facility] [address] [place] [address] Dr. Harris Perdomo BAR Negative Normal NEGATIVE [facility] Comment on above: Performed By: #### E RUR, DRUGRPD #### [facility] [address] [place] [address] Dr. Harris Perdomo BUP Negative Normal NEGATIVE [facility] Comment on above: Performed By: #### E RUR, DRUGRPD #### [facility] [address] [place] [address] Dr. Harris Perdomo BZO Positive Abnormal NEGATIVE [facility] Comment on above: Performed By: #### E RUR, DRUGRPD #### [facility] [address] [place] [address] Dr. Harris Perdomo LAURA Negative Normal NEGATIVE [facility] Comment on above: Performed By: #### E RUR, DRUGRPD #### [facility] [address] [place] [address] Dr. Harris Perdomo CUT-OFFS SEE BELOW Normal [facility] Comment on above: Result Comment: AMP [...] Performed By: #### E RUR, DRUGRPD #### [facility] [address] [place] [address] Dr. Harris Perdomo DRUG CUT HEADER DRUG CLASS TEST SYST EM CUT-OFF CONCENTRATIONS ARE FOLLOWS: Normal [facility] Comment on above: Performed By: #### E RUR, DRUGRPD #### [facility] [address] [place] [address] Dr. Harris Perdomo mAMP Negative Normal NEGATIVE [facility] Comment on above: Performed By: #### E RUR, DRUGRPD #### [facility] [address] [place] [address] Dr. Harris Perdomo MTD Negative Normal NEGATIVE [facility] Comment on above: Performed By: #### E RUR, DRUGRPD #### [facility] [address] [place] [address] Dr. Harris Perdomo OPI Negative Normal NEGATIVE [facility] Comment on above: Performed By: #### E RUR, DRUGRPD #### [facility] [address] [place] [address] Dr. Harris Perdomo OXY Negative Normal NEGATIVE [facility] Comment on above: Performed By: #### E RUR, DRUGRPD #### [facility] [address] [place] [address] Dr. Harris Perdomo PCP Negative Normal NEGATIVE [facility] Comment on above: Performed By: #### E RUR, DRUGRPD #### [facility] [address] [place] [address] Dr. Harris Perdomo PPX Negative Normal NEGATIVE [facility] Comment on above: Performed By: #### E RUR, DRUGRPD #### [facility] [address] [place] [address] Dr. Harris Perdomo TCA Negative Normal NEGATIVE [facility] Comment on above: Performed By: #### E RUR, DRUGRPD #### [facility] [address] [place] [address] Dr. Harris Perdomo THC Negative Normal NEGATIVE [facility] Comment on above: Performed By: #### E RUR, DRUGRPD #### [facility] [address] [place] [address] Dr. Harris Perdomo ER URINE PROFILEon 3 Bilirubin Ql (U) Negative Normal NEGATIVE [facility] Comment on above: Performed By: #### E RUR, DRUGRPD #### [facility] [address] [place] [address] Dr. Harris Perdomo Clarity (U) CLEAR Normal CLEAR [facility] Comment on above: Performed By: #### E RUR, DRUGRPD #### [facility] [address] [place] [address] Dr. Harris Perdomo Color (U) LT. YELLOW Normal YELLOW [facility] Comment on above: Performed By: #### E RUR, DRUGRPD #### [facility] [address] [place] [address] Dr. Harris Perdomo ERUAHMora A micrscopic examina tion will be performed if indicated. Normal [facility] Comment on above: Performed By: #### E RUR, DRUGRPD #### [facility] [address] [place] [address] Dr. Harris Perdomo Glucose Ql (U) Negative Normal NEGATIVE [facility] Comment on above: Performed By: #### E RUR, DRUGRPD #### [facility] [address] [place] [address] Dr. Harris Perdomo Hemoglobin Ql (U) Negative Normal NEGATIVE [facility] Comment on above: Performed By: #### E RUR, DRUGRPD #### [facility] [address] [place] [address] Dr. Harris Perdomo Ketones Ql (U) Negative Normal NEGATIVE [facility] Comment on above: Performed By: #### E RUR, DRUGRPD #### [facility] [address] [place] [address] Dr. Harris Perdomo LEUKOCYTES Negative Normal NEGATIVE [facility] Comment on above: Performed By: #### E RUR, DRUGRPD #### [facility] [address] [place] [address] Dr. Harris Perdomo Nitrite Ql (U) Negative Normal NEGATIVE [facility] Comment on above: Performed By: #### E RUR, DRUGRPD #### [facility] [address] [place] [address] Dr. Harris Perdomo pH (U) 6.5 [pH] Normal 5-[address] [facility] Comment on above: Performed By: #### E RUR, DRUGRPD #### [facility] [address] [place] [address] Dr. Harris Perdomo SPEC GRAVITY <=1.005 Abnormal 1.005-<=1.[address] [facility] Comment on above: Performed By: #### E RUR, DRUGRPD #### [facility] [address] [place] [address] Dr. Harris Perdomo UA PROTEIN Negative Normal NEGATIVE/ TRACE [facility] Comment on above: Performed By: #### E RUR, DRUGRPD #### [facility] [address] [place] [address] Dr. Harris Perdomo UR MICRO IND NOT INDICATED Normal [facility] Comment on above: Performed By: #### E RUR, DRUGRPD #### [facility] [address] [place] [address] Dr. Harris Perdomo Urobilinogen Qn (U) 0.2 {Baylee'U}/dL Normal 0.2 - 1. 0 [facility] Comment on above: Performed By: #### E RUR, DRUGRPD #### [facility] [address] [place] [address] Dr. Harris Perdomo ETHANOL (BLD ALC)on 08-27-19 23 ALC NOTE NOTE: 80 mg/dl is th e legal limit for a blood alcohol level Normal [facility] Comment on above: Performed By: #### S ALYC, ETH, ACET, CMP, TSH #### [facility] [address] [place] [address] Dr. Harris Perdomo Ethanol [Mass/Vol] mg/dL Normal [facility] Comment on above: Performed By: #### S ALYC, ETH, ACET, CMP, TSH #### [facility] [address] [place] [address] Dr. Harris Perdomo PROF 14(COMP METB)on 023 Albumin [Mass/Vol] 3.8 g/dL Normal 3.4-5.0 [facility] Comment on above: Performed By: #### S ALYC, ETH, ACET, CMP, TSH #### [facility] [address] [place] [address] Dr. Harris Perdomo Albumin/Globulin [Mass ratio] 1.2 {ratio} Normal [facility] Comment on above: Performed By: #### S ALYC, ETH, ACET, CMP, TSH #### [facility] [address] [place] [address] Dr. Harris Perdomo ALP [Catalytic activity/Vol] 103 U/L Normal 46-116 [facility] Comment on above: Performed By: #### S ALYC, ETH, ACET, CMP, TSH #### [facility] [address] [place] [address] Dr. Harris Perdomo ALT [Catalytic activity/Vol] 6 U/L Critically low 14-59 [facility] Comment on above: Performed By: #### S ALYC, ETH, ACET, CMP, TSH #### [facility] [address] [place] [address] Dr. Harris Predomo Anion gap [Moles/Vol] 12.3 mmol/L Normal [facility] Comment on above: Performed By: #### S ALYC, ETH, ACET, CMP, TSH #### [facility] [address] [place] [address] Dr. Harris Perdomo AST [Catalytic activity/Vol] 14 U/L Critically low 15-37 [facility] Comment on above: Performed By: #### S ALYC, ETH, ACET, CMP, TSH #### [facility] [address] [place] [address] Dr. Harris Perdomo Bilirubin [Mass/Vol] 0.4 mg/dL Normal 0.2-1.0 [facility] Comment on above: Performed By: #### S ALYC, ETH, ACET, CMP, TSH #### [facility] [address] [place] [address] Dr. Harris Perdomo Calcium [Mass/Vol] 9.1 mg/dL Normal 8.5-10.1 [facility] Comment on above: Performed By: #### S ALYC, ETH, ACET, CMP, TSH #### [facility] [address] [place] [address] Dr. Harris Perdomo Chloride [Moles/Vol] 106 mmol/L Normal 98-107 [facility] Comment on above: Performed By: #### S ALYC, ETH, ACET, CMP, TSH #### [facility] [address] [address] [address] Harris Perdomo CO2 [Moles/Vol] 28.7 mmol/L Normal 21.0-32.0 [facility] Comment on above: Performed By: #### S ALYC, ETH, ACET, CMP, TSH #### [facility] [address] [address] [address] Harris Perdomo Creatinine [Mass/Vol] 0.65 mg/dL Normal 0.55-1.02 [facility] Comment on above: Performed By: #### S ALYC, ETH, ACET, CMP, TSH #### [facility] [address] [address] [address] Harris Perdomo EGFR-AF [place] >60 Normal >=60 [facility] Comment on above: Performed By: #### S ALYC, ETH, ACET, CMP, TSH #### [facility] [address] [place] [address] Dr. Harris Perdomo EGFR-NON AF [place] >60 Normal >=60 [facility] Comment on above: Performed By: #### S ALYC, ETH, ACET, CMP, TSH #### [facility] [address] [address] [address] Harris Perdomo Globulin (S) [Mass/Vol] 3.2 g/dL Normal [facility] Comment on above: Performed By: #### S ALYC, ETH, ACET, CMP, TSH #### [facility] [address] [address] [address] Harris Perdomo Glucose [Mass/Vol] 99 mg/dL Normal 74-106 [facility] Comment on above: Performed By: #### S ALYC, ETH, ACET, CMP, TSH #### [facility] [address] [address] [address] Harris Perdomo Potassium [Moles/Vol] 4.0 mmol/L Normal 3.5-5.1 [facility] Comment on above: Performed By: #### S ALYC, ETH, ACET, CMP, TSH #### [facility] [address] [place] [address] Dr. Harris Perdomo Protein [Mass/Vol] 7.0 g/dL Normal 6.4-8.2 [facility] Comment on above: Performed By: #### S ALYC, ETH, ACET, CMP, TSH #### [facility] [address] [address] [address] Harris Perdomo Sodium [Moles/Vol] 143 mmol/L Normal 136-145 [facility] Comment on above: Performed By: #### S ALYC, ETH, ACET, CMP, TSH #### [facility] [address] [address] [address] Harris Perdomo Urea nitrogen [Mass/Vol] 20.0 mg/dL Critically high 7.0-18.0 [facility] Comment on above: Performed By: #### S ALYC, ETH, ACET, CMP, TSH #### [facility] [address] [address] [address] Harris Perdomo Urea nitrogen/Creatinine [Mass ratio] 30.8 mg/mg Normal [facility] Comment on above: Performed By: #### S ALYC, ETH, ACET, CMP, TSH #### [facility] [address] [address] [address] Harris Perdomo SALICYLATEon 08-26-2022 SALICYLATE <2.8 Normal <=19.9 [facility] Comment on above: Performed By: #### S ALYC, ETH, ACET, CMP, TSH #### [facility] [address] [address] [address] Harris Perdomo TSHon 08-26-2022 TSH 1.224 uIU/mL Normal 0.358-3.740 [facility] Comment on above: Performed By: #### S ALYC, ETH, ACET, CMP, TSH #### [facility] [address] [address] [address] Harris Perdomo XR Knee 3 Views Lefton 02-09 XR Knee 3 Views Left FINDINGS: Mild bilateral patellofemoral joint space loss. No cortical or subchondral fracture. No significant osteophyte formation. Small left sided patellofemoral effusion. IMPRESSION: 1. 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 Report reported and signed by Kieran Caputo on 02/09/2022 1429 Normal [facility] XR Knee 3 Views Righton 01-16 XR Knee 3 Views Right Please see left knee report. Report reported and signed by Kieran Caputo on 02/09/2022 1430 Normal [facility] XR Humerus Righton XR Humerus Right HISTORY: [...] by Kieran Caputo on 09/11/2021 1054 Normal [facility] Lipid Panelon 05-14-2021 Cholesterol [Mass/Vol] 199 mg/dL Normal 125-200 [facility] Comment on above: Result Comment: Low risk < 200mg/dL Borderline risk 201-239 mg/dl High risk > or equal to 240 Performed By: #### L IPD #### [facility] [address] [place], [place] [id number] Cholesterol in HDL [Mass/Vol] 51 mg/dL Normal >40 [facility] Comment on above: Result Comment: High Cardiovascular Risk HDL <40 mg/dL Low Cardiovascular Risk HDL > or equal to 60 mg/dl Performed By: #### L IPD #### [facility] [address] [place], [place] [id number] Cholesterol in LDL [Mass/Vol] 112 mg/dL Normal [facility] Comment on above: Result Comment: LDL ATP III CLASSIFICATION LDL less than 100 mg/dl Optimal LDL 100-129 mg/dl Near or above optimal LDL 130-159 Borderline high LDL 160-189 High LDL greater than 189 mg/dl Very High Performed By: #### L IPD #### [facility] [address] [place], [place] [id number] Cholesterol in VLDL [Mass/Vol] 36 mg/dL Normal [facility] Comment on above: Performed By: #### L IPD #### [facility] [address] [facility] [place] [id number] Cholesterol.total/C holesterol in HDL [Mass ratio] 4 {ratio} Normal [facility] Comment on above: Performed By: #### L IPD #### [facility] [address] [place] [id number] Triglyceride [Mass/Vol] 178 mg/dL High 30-150 [facility] Comment on above: Result Comment: TRIG ATPIII CLASSIFICATIONS TRIG less than 150 mg/dl Normal TRIG 150-199 mg/dl Borderline High TRIG 200-500 mg/dl High TRIG greather than 500 mg/dl Very High Performed By: #### L IPD #### [facility] [address] [place], [place] [id number] Q - QUESTASSURED(TM) 25-OH V IT D(D2D3)LC/MS/MSon 05-14-2021 VITAMIN D, 25-OH, D2 <4 Normal [facility] Comment on above: Order Comment: [facility] Testing performed at: [facility], [address], [place], [place], , Hall Cleaner: Andrey Lott M.D.,PhD [facility] Collection Date/Time: [facility] Results Received Date/Time: [facility] Reported Date/Time: Result Comment: This test was developed and its analytical performance characteristics have been determined by [employer] [place], [place]. It has not been cleared or approved by the U.S. Food and Drug Administration. This assay has been validated pursuant to the CLIA regulations and is used for clinical purposes. Performed By: #### [id number] #### [facility] [address] [place] [address] VITAMIN D, 25-OH, D3 51 ng/mL Normal [facility] Comment on above: Order Comment: [facility] performed at: [facility], [address], [place], [place], , Hall Cleaner: Andrey Lott M.D.,PhD [facility] Date/Time: [id number] [facility] Results Received Date/Time: [facility] Reported Date/Time: Result Comment: This test was developed and its analytical performance characteristics have been determined by [facility] [place], [place]. It has not been cleared or approved by the U.S. Food and Drug Administration. This assay has been validated pursuant to the CLIA regulations and is used for clinical purposes. Performed By: #### [id number] #### [facility] [address] [place] [address] VITAMIN D, 25-OH, TOTAL 51 ng/mL Normal 30-100 [facility] Comment on above: Order Comment: [facility] performed at: [facility], [facility], [address], [place], [place], , Hall Cleaner: Andrey Lott M.D.,PhD [facility] Date/Time: [facility] [...] 2011;96(7):1911-30. For additional information, please refer to http://education.[employer]/faq/ZNW345 (This link is being provided for informational/ educational purposes only.) Performed By: #### [id number] #### [facility] [address] [place] [address] SCREENING MAMMOGRAM W/MAKENNA, BILATERAL*on 05-14-2021 SCREENING MAMMOGRAM [...] VERY IMPORTANT TO YOUR HEALTH. THE CURRENT [place] [employer] GUIDELINES RECOMMENDS ANNUAL MAMMOGRAPHY BEGINNING AT AGE 40. THIS FACILITY USES A REMINDER SYSTEM TO ENSURE ALL PATIENTS RECEIVE REMINDER NOTIFICATIONS AT THE APPROPRIATE TIME BASED ON THE RECOMMENDATIONS OF THIS EXAM. Report reported and signed by Keiran Caputo on 05/14/2021 1337 Normal [facility] Nut Feeder CNOVSPon 02-04-2017 CNOVSP Visit (SP) Office (HEMACL) LISA MÁRQUEZ ([id number]) 1955 [facility] Time Provider Department02/04/17 2:00 PM RICARDO CARRASCO HEMACL During your visit today, we recorded the following information about you: Temperature Pulse Respiration Blood pressure 98 degrees 85/minute 18/minute 115/69 Weight Height 44 kg 1.549 mMINDY LUTHER DOUGHERTY PA-C 02/04/2017 1:50 PM SignedPatient: Armando Johnson Alma DeliarDOB: 1955Race: Katya Complaint:Endometrial CancerHPI: Armando is here for follow up. She had endometrial cancer diagnosed [id number] and treated with chemotherapy and radiation. She [...] has had 2 CTs to monitorthis at [place] and she states it has been stable.Current [...] tremor to left handImaging Studies: CXR at [facility] 01/19/2017 was negativeASSESSMENT/PLAN:1 . 182.0 Endometrial cancerShe has no evidence of disease recurrence. She is now 12 years out from [facility] and she will follow up with her PCP for yearly chest x-rays. 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 She had endometrial cancer diagnosedin 2004 and treated with chemotherapy and radiation. [facility] Vogel yearly for her [...] tremor to left handImaging Studies: CXR at [facility] 01/19/2017 was negativeASSESSMENT/PLAN:1 . 182.0 Endometrial cancerShe has no evidence of disease recurrence. She is now 12 years out fromher cancer and she will follow up with her PCP for yearly chest x-rays. MIS DOUGHERTY PA-C Normal [facility] Remote CBCDIF (for [facility] use o nly)on 02-04-2017 Abs Baso 0.01 k/uL Normal 0.00-0.[address] [facility] Abs Gila 0.27 k/uL Normal 0.00-0.[address] [facility] Abs Neut 2.36 k/uL Normal 1.45-7.[address] [facility] Basophils/100 WBC Auto (Bld) 0.3 % Normal [facility] Eosinophils 0.03 10*3/uL Normal 0.00-0.[address] [facility] Eosinophils/100 leukocytes 0.9 % Normal [facility] Erythrocyte distribution width Auto Ratio (RBC) 12.8 % Normal 11.5-15.[address] [facility] Erythrocytes (RBC) 4.14 10*6/uL Normal 3.90-5.20 [facility] Hematocrit (HCT) 37.9 % Normal 36.0-46.0 [facility] Hemoglobin mass conc (Bld) 12.6 g/dL Normal 11.5-15.[address] [facility] Lymphocytes 0.76 10*3/uL Low 1.00-4.[address] [facility] Lymphocytes/100 leukocytes 22.2 % Normal [facility] MCH 30.4 pG Normal 26.0-34.[address] [facility] MCHC mass conc (RBC) 33.2 g/dL Normal 30.5-36.[address] [facility] MCV 91.5 fL Normal 80.0-100.[address] [facility] Monocytes/100 leukocytes 7.9 % Normal [facility] Neutrophils/100 WBC Auto (Bld) 68.7 % Normal [facility] Platelet mean volume (PMV) 8.7 fL Low 9.0-12.[address] [facility] Platelets 198 10*3/uL Normal 150-[address] [facility] WBC (Leukocytes) 3.43 10*3/uL Low 3.70-11.00 [facility] Vital Signs Date Time Vital Sign Value Performing Clinician Facility 08-18-2023 09:52-0400 Diastolic blood pressure 73 mm[Hg] Eve Verhoff PA-C Work Phone: [facility] 08-18-2023 09:52-0400 Respiratory rate 18 /min Eve Verhoff PA-C Work Phone: [facility] 08-18-2023 09:52-0400 SaO2% (BldA) [Mass fraction] 96 % Eve Verhoff PA-C Work Phone: [facility] 08-18-2023 09:52-0400 Systolic blood pressure 123 mm[Hg] Eve Verhoff PA-C Work Phone: [facility] 07-21-2023 10:44-0500 Body height 154.9 cm Eve Verhoff PA-C Work Phone: [facility] 07-21-2023 10:44-0500 Body mass index (BMI) [Ratio] 21.92 kg/m2 Eve Verhoff PA-C Work Phone: [facility] 07-21-2023 10:44-0500 Body weight 52.62 kg Eve Verhoff PA-C Work Phone: [facility] 07-21-2023 10:44-0500 Diastolic blood pressure 63 mm[Hg] Eve Verhoff PA-C Work Phone: [facility] 07-21-2023 10:44-0500 Heart rate 79 /min Eve Verhoff PA-C Work Phone: [facility] 07-21-2023 10:44-0500 Respiratory rate 18 /min Eve Verhoff PA-C Work Phone: [facility] 07-21-2023 10:44-0500 SaO2% (BldA) [Mass fraction] 97 % Eve Verhoff PA-C Work Phone: [facility] 07-21-2023 10:44-0500 Systolic blood pressure 119 mm[Hg] Eve Salas PA-C Work Phone: [facility] 07-01-2023 13:36-0500 Body height 154.9 cm Saira Proctor CIVIL ENGINEERING DESIGNER Work Phone: [facility] 07-01-2023 13:36-0500 Body mass index (BMI) [Ratio] 21.92 kg/m2 Saira Proctor CIVIL ENGINEERING DESIGNER Work Phone: [facility] 07-01-2023 13:36-0500 Body weight 52.62 kg Saira Proctor CIVIL ENGINEERING DESIGNER Work Phone: [facility] 07-01-2023 13:36-0500 Diastolic blood pressure 82 mm[Hg] Saira Proctor CIVIL ENGINEERING DESIGNER Work Phone: [facility] 07-01-2023 13:36-0500 Heart rate 78 /min Saira Proctor CIVIL ENGINEERING DESIGNER Work Phone: [facility] 07-01-2023 13:36-0500 Respiratory rate 18 /min Saira Proctor CIVIL ENGINEERING DESIGNER Work Phone: [facility] 07-01-2023 13:36-0500 SaO2% (BldA) [Mass fraction] 98 % Saira Proctor CIVIL ENGINEERING DESIGNER Work Phone: [facility] 07-01-2023 13:36-0500 Systolic blood pressure 128 mm[Hg] Saira Proctor CIVIL ENGINEERING DESIGNER Work Phone: [facility] Encounters Encounter Date Encounter Type Care Provider Facility Start: 09-07-2023 End: 09-10-2023 Emergency department patient visit SHEA Ghosh [facility] Start: 08-18-2023 End: 08-18-2023 ambulatory EVE SALAS [facility] Start: 08-18-2023 End: 08-18-2023 Office outpatient visit 25 minutes Eve Salas PA-C Work Phone: [facility] Comment on above: Lumbar spondylosis; Bilateral leg cramps Start: 08-10-2023 End: 08-10-2023 ambulatory SAIRA PROCTOR Not Available Start: 07-29-2023 Telephone encounter Dana Kamara [facility] Start: 07-27-2023 End: 07-27-2023 ambulatory SHASHI Natarajan CHERYLE-NOSSEK Not Available Start: 07-21-2023 End: 07-21-2023 ambulatory EVE SALAS [facility] Start: 07-21-2023 End: 07-21-2023 Office outpatient new 30 minutes Eve Salas PA-C Work Phone: [facility] Comment on above: Lumbar spondylosis ( Primary Dx); Bilateral leg cramps Start: 07-01-2023 End: 07-01-2023 ambulatory SAIRA Benigno PROCTOR Not Available Start: 07-01-2023 Bamboo flowsheet Saira Proctor CIVIL ENGINEERING DESIGNER Work Phone: [facility] Start: 07-01-2023 Bamboo flowsheet Saira Proctor CIVIL ENGINEERING DESIGNER Work Phone: [facility] Start: 07-01-2023 Telephone encounter Saira maldonado CIVIL ENGINEERING DESIGNER Work Phone: [facility] Comment on above: Medication Question Start: 07-01-2023 End: 07-01-2023 Office outpatient visit 15 minutes Saira Proctor CIVIL ENGINEERING DESIGNER Work Phone: [facility] Comment on above: Secondary parkinsoni sm, unspecified secondary Parkinsonism type (CMS/HCC) (Primary Dx); Dystonia; Muscle cramping Start: 06-01-2023 End: 06-01-2023 ambulatory SHASHI Natarajan CHERYLE-NOSSEK Not Available Start: 05-13-2023 End: 05-13-2023 ambulatory SAIRA Benigno PROCTOR Not Available Start: 04-15-2023 End: 04-15-2023 ambulatory HOANG EDDY Not Available Start: 04-12-2023 End: 04-12-2023 ambulatory SHASHI Delgado CHERYLE-NOSSEK Not Available Start: 04-01-2023 End: 04-01-2023 ambulatory SAIRANEW PROCTOR Not Available Start: 08-26-2022 End: 08-27-[address] FRANKIE FIERRO . Facility: Start: 02-04-2017 End: 02-05-2017 Ambulatory RICARDO CARRASCO [facility] Procedures Date Procedure Procedure Detail Performing Clinician Start: 10-30-2022 Adult depression scr eening assessment Eve Salas PA-C Work Phone: Start: 10-15-2022 Mammography Saira Proctor CIVIL ENGINEERING DESIGNER Work Phone: Start: 10-01-2022 H/O: hysterectomy H/O: hysterectomy Saira Proctor CIVIL ENGINEERING DESIGNER Work Phone: Start: 10-08-2017 Colonoscopy Saira Proctor CIVIL ENGINEERING DESIGNER Work Phone: Plan of Treatment Date Care Activity Detail Author Start: 10-09-2027 Screening for malign ant neoplasm of colon [facility] Start: 08-17-2024 Tobacco Screening Tobacco Screening [facility] Start: 07-20-2024 Adult BMI Screening Adult BMI Screen ing [facility] Start: 07-20-2024 Tobacco Screening Tobacco Screening [facility] Start: 01-16-2024 Influenza vaccination Influenza Vacc ine [facility] Start: 01-07-2024 Medicare Annual Wellness (AWV) Medicare Annual Wellness (AWV) [facility] Start: 10-31-2023 Depression Screening Depression Scre ening [facility] Start: 10-29-2023 End: 10-29-2023 Patient encounter procedure 10/29/2023 11:30 AM EDT Office Visit [facility] [address] [place] [address] Arpan Delacruz MD [address] [place] [address], [address] [phone] [facility] Start: 10-16-2023 Screening for malign ant neoplasm of breast Mammogram [facility] Start: 10-01-2023 End: 10-01-2023 Patient encounter procedure 10/01/2023 12:00 PM EDT Office Visit [facility] [address] [place] [address] Arpan Delacruz MD [address] [place] [address], [address] [place] [phone] [facility] Start: 09-29-2023 End: 09-29-2023 Patient encounter procedure 09/29/2023 9:45 AM EDT Office Visit [facility] [address] [place] [address] Eve Salas PA-C [address] [place] [address] [facility] Start: 08-18-2023 End: 08-18-2023 Patient encounter procedure 08/18/2023 10:00 AM EDT Office Visit [facility] [address] [place] [phone] Eve Salas PA-C [address] [place] [address] [facility] Start: 08-12-2023 End: 08-12-2023 Patient encounter procedure 08/12/2023 11:00 AM EDT Office Visit [facility] [address] [place] [phone] Saira Proctor, FADY [address] [place] [address] [facility] Start: 07-27-2023 End: 07-27-2023 Patient encounter procedure 07/27/2023 11:00 AM EDT Office Visit [facility] [address] [facility] [address] [place] [phone] Shashi Servin, RESIDENTIAL LIFE DIRECTOR-MALT HOUSE LOADER [address] [facility] [address] [place] [address] [facility] Start: 07-19-2023 End: 07-19-2023 Patient encounter procedure 07/19/2023 2:00 PM EST Office Visit [facility] [address] [place] [phone] Hoang Eddy, DPM [address] [place], [place] [phone] [facility] Start: 07-01-2023 End: 07-01-2023 Patient encounter procedure 07/01/2023 1:30 PM EST Office Visit [facility] [address] [place] [facility] [phone] Saira Proctor NP [address] [place] [address] Arrived [facility] Comment on above: Arrived Start: 01-15-2023 COVID-19 Vaccine ( season) COVID-19 Vaccine ( season) [facility] Start: 11-05-2019 Fall Risk Screening Fall Risk Screen [facility] Start: 1973 DTaP,Tdap and Td Vaccines (1 - Tdap) DTaP,Tdap and Td Vaccines (1 - Tdap) [facility] Start: 1955 Medicare Annual Wellness Visit Medicare Annual Wellness Visit [facility] Start: 1955 Screening for malign ant neoplasm of colon [facility] Immunizations Immunization Date Immunization Notes Care Provider Fa cili 05-13-2023 Influenza, High-dose Seasonal, Quadrivalent, Preservative Free Saira Proctor NP Work Phone: [facility] 05-13-2023 influenza virus vacc ine, unspecified formulation Eve Salas PA-C Work Phone: [facility] 01-06-2023 pneumococcal conjuga te vaccine, 13 valent Saiar Proctor NP Work Phone: [facility] 04-16-2022 Moderna SARS-CoV-2 50mcg/0.5mL Booster Saira Proctor CIVIL ENGINEERING DESIGNER Work Phone: [facility] 02-09-2022 influenza, injectabl e, quadrivalent, preservative free Saira Proctor CIVIL ENGINEERING DESIGNER Work Phone: [facility] 04-04-2021 Pfizer Purple Cap SARS-CoV-2 Vaccination Saira Proctor CIVIL ENGINEERING DESIGNER Work Phone: [facility] 02-12-2021 Influenza, High-dose Seasonal, Quadrivalent, Preservative Free Saira Proctor CIVIL ENGINEERING DESIGNER Work Phone: [facility] 05-02-2020 influenza, high dose seasonal, preservative-free Eve Verhoff PA-C Work Phone: [facility] 05-02-2020 Influenza, High-dose Seasonal, Quadrivalent, Preservative Free Saira Proctor CIVIL ENGINEERING DESIGNER Work Phone: [facility] 05-02-2020 pneumococcal polysaccharide vaccine, 23 valent Saira Proctor CIVIL ENGINEERING DESIGNER Work Phone: [facility] 09-30-2019 zoster vaccine recombinant Saira Proctor CIVIL ENGINEERING DESIGNER Work Phone: [facility] 07-28-2019 zoster vaccine recombinant Saira Proctor CIVIL ENGINEERING DESIGNER Work Phone: [facility] 03-23-2019 influenza, injectabl e, quadrivalent, contains preservative Eve Verhoff PA-C Work Phone: [facility] 03-23-2019 influenza, injectabl e, quadrivalent, preservative free Saira Proctor CIVIL ENGINEERING DESIGNER Work Phone: [facility] 03-30-2018 influenza, injectabl e, quadrivalent, contains preservative Eve Verhoff PA-C Work Phone: [facility] 03-30-2018 influenza, injectabl e, quadrivalent, preservative free Saira Proctor CIVIL ENGINEERING DESIGNER Work Phone: [facility] 03-11-2017 influenza, injectabl e, quadrivalent, contains preservative Eve Verhoff PA-C Work Phone: [facility] 03-11-2017 influenza, injectabl e, quadrivalent, preservative free Sairanew Proctor CIVIL ENGINEERING DESIGNER Work Phone: [facility] 02-20-2016 influenza, injectabl e, quadrivalent, preservative free Sairanew Proctor CIVIL ENGINEERING DESIGNER Work Phone: [facility] Healthcare Payers Date Payer Category Payer Medicare [id number] 2019 Unknown [id number] 1959 Medicare [id number] 1959 Unknown [id number] 1954 Unknown [id number] 2.16.84 [id number] 1954 Unknown [id number] 2.16.84 [id number] 1954 Unknown [id number] 2.16.84 [id number] 1954 Unknown [id number] 2.16.84 [id number] 1954 Unknown [id number] 2.16.84 [id number] 1954 Unknown [id number] 2.16.840 .[id number] 1954 Unknown [id number] 2.16.840 .[id number] 1954 Unknown [id number] 2.16.840 .[id number] 1954 Unknown [id number] 2.16.840 .[id number] 1954 Unknown [id number] 2.16.8 [id number] 1954 Unknown [id number] 2.16.8 [id number] 1954 Unknown [id number] 2.16.8 [id number] Social History Date Type Detail Facility Start: 03-13-2022 End: 09-26-2022 Tobacco smoking status NHIS Never smoked tobacco [facility] Start: 03-13-2022 End: 09-26-2022 Tobacco use and exposure Smokeless tobacco non-user [facility] Start: 06-01-2023 End: 07-01-2023 Alcohol intake Ex-drinker (finding) [facility] Start: 06-04-2020 End: 10-05-2022 History of Social function [facility] Start: 06-04-2020 End: 10-05-2022 Alcohol Use Disorder Identification Test - Consumption [AUDIT-C] [facility] How often to you hav e a drink containing alcohol? Never [facility] How many standard dr inks containing alcohol do you have on a typical day? Patient does not drink [facility] Start: 04-14-2023 Alcohol Comment none, Caffeine intake: none [facility] Start: 1955 Sex Assigned At Not on file [facility] Start: 07-21-2023 End: 08-18-2023 Alcohol intake Current non-drinker of alcohol (finding) [facility] Medical Equipment Procedure Code Equipment Code Equipment Origin al Text Equipment Identifier Dates Cement Bn - [id number] Start: 07-10-2022 Nail Im 170mm 11 mm 130d Cnn Tfn-Adv Lat Rlf Cut Ti Niobium - Sna - [id number] Start: 09-14-2021 Blade Im Nl Au 9 0mm 10.35mm Tfn-Adv Hlcl Fem Prox Ti Niobium - Sna - [id number] Start: 09-14-2021 Screw Bn 32mm 5m m 4.[address]mm St Lck Strdr Blnt Tip Ti T25 Ft Strl - Sna - [id number] Start: 09-14-2021 Goals Date Patient Goal [...] medical clearance Clinical Notes 09-11-2021 to 08-18-2023 MAEGAN Rowland 08/18/2023 10:00 AM EDTAddendum Note - Eve Salas PA-C - 08/18/2023 10:00 AM EDTAddendum Note - Eve Salas PA-C - 08/18/2023 10:00 AM EDT Note Date & Type Note Facility 08-18-2023 History of Presen t illness Narrative [facility] [address] [place] [address] Patient: Armando Márquez Sex: female : 1955 Age: 67 y.o. PCP: Shea Vogel MD 08/18/2023 Armando Márquez is here for a(n) follow up after increasing Gabapentin to 600mg TID. This dose was too strong and patient decreased to 400mg TID . Chief Complaint Patient presents with Back Pain HPI: PT in past at [facility] (where she currently lives) which made [...] (BLE). Associated symptoms comments: [facility]. She reports no foreign bodies [...] Date Anemia Back pain Depression Endometrial cancer (CMS-HCC) 2005 Idiopathic hypotension Left atrial enlargement Low back pain Neck pain Osteoporosis Parkinsonism (CMS-HCC) Shaking Left Hand Shingles Skin carcinoma Visual impairment Past Surgical History: Procedure Laterality Date AUGMENTATION VERTEBRAL KYPHOPLASTY SPINE L 1 N/A 07/10/2022 Performed by Emmanuel Dela Cruz MD at [facility] BREAST BIOPSY 2003 stereotactic benign COLONOSCOPY N/A 10/08/2017 Performed by Sedrick Huizar MD at [place] [facility] HYSTERECTOMY 05/24/2004 [facility] in [place], [place] INSERTION INTRAMEDULLARY TROCHANTERIC FIXATION NAIL HIP Left 09/14/2021 Performed by Joshua Ramos MD at [place] [facility] SELECTIVE LASER TRABECULOPLASTY Right 02/24/2019 SLT 360 [...] assisted with ambulatory aid(s): W/C. Assessment/Treatment Plan: Armando was seen today for back pain. Diagnoses [...] by Miriam Whitten CNA. Provider Statement: I, EEV SALAS PA-C, personally performed the services described in the documentation, as scribed by Miriam Whitten CNA in my presence, and it is both accurate and complete. Miriam Whitten CNA 08/18/23 1144 Eve Salas PA-C 08/18/23 1146 documented in this encounter [facility] 08-18-2023 Miscellaneous Notes Addended by: EVE SALAS on: 08/18/2023 01:53 PM Modules accepted: Orders documented in this encounter [facility] 08-18-2023 Note Addended by: EVE SALAS on: 08/18/2023 01:53 PM Modules accepted: Orders [facility] 07-29-2023 Miscellaneous Notes [facility] They report gabapentin 600 mg TID is too much for patient. She isn't walking and has to be wheeled down to meals, has increased confusion. They are requesting decreasing dose to 400 mg TID Please advise Please reduce back to 400tid Medication change completed via fax from [facility] and sent back to them with Matts signature. documented in this encounter [facility] 07-29-2023 Telephone encounter Note Received call and fax from [facility]. They report gabapentin 600 mg TID is too much for patient. She isn't walking and has to be wheeled down to meals, has increased confusion. They are requesting decreasing dose to 400 mg TID Please advise [facility] 07-29-2023 Telephone encounter Note Please reduce back to 400tid [facility] Work Phone: 07-29-2023 Telephone encounter Note Medication change completed via fax from [facility] and sent back to them with Matts signature. [facility] 07-21-2023 History of Presen t illness Narrative [facility] [address] [place] [address] Patient: Armando Márquez Sex: female : 1955 Age: 67 y.o. PCP: Shea Vogel MD 07/21/2023 Armando Márquez is here for a(n) initial consultation. Chief Complaint Patient presents with Leg Pain HPI: PT in past at [facility] (where she currently lives) which made [...] Date Anemia Back pain Depression Endometrial cancer ([facility]) 2004 Idiopathic hypotension Left atrial enlargement Low back pain Neck pain Osteoporosis Parkinsonism Shaking Left Hand Shingles Skin carcinoma Visual impairment Past Surgical History: Procedure Laterality Date AUGMENTATION VERTEBRAL KYPHOPLASTY SPINE L 1 N/A 07/10/2022 Performed by Emmanuel Dela Cruz MD at [facility] BREAST BIOPSY 2004 stereotactic benign COLONOSCOPY N/A 10/08/2017 Performed by Sedrick Huizar MD at [place] [facility] HYSTERECTOMY 05/24/2004 [facility] in [place], [place] INSERTION INTRAMEDULLARY TROCHANTERIC FIXATION NAIL HIP Left 09/14/2021 Performed by Joshua Ramos MD at [place] [facility] SELECTIVE LASER TRABECULOPLASTY Right 02/24/2019 SLT 360 [...] assisted with ambulatory aid(s): W/C. Assessment/Treatment Plan: Armando was seen today for leg pain. Diagnoses [...] PA-C 07/21/23 1156 documented in this encounter [facility] 07-01-2023 Telephone encounter Note PC from Hanny at [facility] [place] received Rx for Baclofen 20mg, is questioning if you want her started off with 10mg and then go up? Her call back is [phone]. Thank you! [facility] 07-01-2023 Miscellaneous Notes [facility] [place] [facility]of[facility] 20mg, is questioning if you want her started off with 10mg and then go up? Her call back is [phone]. Thank you! documented in this encounter [facility] 07-01-2023 History of Presen t illness Narrative Armando Márquez is a 67 y.o. female presents [...] times daily cholecalciferol (Vitamin D-3) 50 MCG (1999) tablet Oral, Daily cyclobenzaprine (Flexeril) 5 MG [...] HISTORY: Past Medical History: Diagnosis Date Depression ([facility]) Endometrial cancer ([facility]) 2004 History of being hospitalized 08/2022 [facility] x12 days History of being hospitalized 04/2022 [facility] x14 days History of psychiatric hospitalization [facility] 06/2022 and 04/2022 Nontoxic multinodular goiter ([facility]/HCC) Osteoporosis ([facility]) Parathyroid adenoma Parkinson's disease Spinal stenosis Thyroid nodule ([facility]) Vitamin D deficiency Social History Tobacco Use Smoking status: Never Smokeless tobacco: Never Vaping Use Vaping Use: Never used Substance Use Topics Alcohol use: Not Currently Comment: none, Caffeine intake: none Drug use: Never Past Surgical History: Procedure Laterality Date BONE MARROW BIOPSY 07/10/2022 L1 BREAST BIOPSY Right 2004 COLONOSCOPY 2009 FIXATION KYPHOPLASTY LUMBAR SPINE 07/10/2022 Balloon Kyphoplasty w elevation of fracture and cement augmentation of L1 vertebral body HIP FRACTURE SURGERY Left 09/14/2021 HYSTERECTOMY 2005 Total [place] LASER SURGERY OF EYE Right 02/2019 TUBAL [...] follow-ups on file. documented in this encounter [facility] 09-11-2021 Note HISTORY: Multiple fa lls [...] signed by Kieran Caputo on 09/11/2021 [address] [facility] [employer]eder Evaluation note Diagnosis Secondary parkinsonism, unspecified secondary Parkinsonism type (CMS/HCC)- Primary Dystonia Abnormal involuntary movements Muscle cramping documented in this encounter [facility] HealthcareEvaluation note* Diagnosis Lumbar spondylosis- Primary Lumbosacral spondylosis without myelopathy Bilateral leg cramps [facility] Diagnosis Lumbar spondylosis Lumbosacral spondylosis without myelopathy Bilateral leg cramps [facility] filed[facility] filedocumented in this encounter [facility]Not on filedocumented in this encounter [facility] SystemReason for referral (narrative)* Consultation (Routine) - Pending Review Specialty Diagnoses / Procedures Referred By Navdeep hoskins Referred To Contact Pain Medicine Diagnoses Secondary parkinsonism, unspecified secondary Parkinsonism type (CMS/HCC) Dystonia Muscle cramping Procedures [place] OFFICE/OUTPATIENT [facility] 60 MINUTES Saira Proctor NP [address] [place] [address] Unallocated, [facility] [place] [address] Referral ID Status Reason Start Date Expiration Date Visits Requested Visits Authorized [id number] Pending Review Specialty Services Required 07/01/2023 12/28/2023 1 1 [facility] Summary Purpose Family History No Family History Records FoundNo Family History Records FoundNo Family History Records FoundNo Family History Records FoundNo Family History Records FoundNo Family History Records Found Advance Directives No Advanced Directives Records FoundDocuments on File Type Date Recorded 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 Living Will 09/23/2021 7:47 AM Durable Power of Baggage [place] 09/23/2021 7:47 AM Latest Code Status on File Code Status Date Activated Date Inactivated Comments Full Code 07/08/2022 9:19 PM 07/14/2022 5:18 PM Code Status History Code Status Date Activated Date Inactivated Comments Full Code 09/13/2021 6:49 PM 09/16/2021 8:13 PM Documents on File Type Date Recorded 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 Living Will 09/23/2021 7:47 AM Durable Power of Baggage [place] 09/23/2021 7:47 AM Latest Code Status on File Code Status Date Activated Date Inactivated Comments Full Code 07/08/2022 9:19 PM 07/14/2022 5:18 PM Code Status History Code Status Date Activated Date Inactivated Comments Full Code 09/13/2021 6:49 PM 09/16/2021 8:13 PM Reason for Referral Specialty Diagnoses / Procedures Referred By Contalexus t Referred To Contact Diagnoses Lumbar spondylosis Bilateral leg cramps Eve Salas, PATricia [address] [place] [address] Referral ID Status Reason Start Date Expiration Date V isits Requested Visits Authorized [id number] Pending Review 1 1 Additional Source Comments INFORMATION SOURCE (unrecogn ized section and content) DATE CREATED AUTHOR 11/10/[address] [facility] DATE CREATED AUTHOR AUTHOR'S ORGANIZ ATION 02/16/2022 [facility] dical Specialist DATE CREATED AUTHOR AUTHOR'S ORGANIZ ATION 08/31/2022 [facility] DATE CREATED AUTHOR AUTHOR'S ORGANIZ ATION 08/11/2023 [facility] dical Specialists EPIC DATE CREATED AUTHOR AUTHOR'S ORGANIZ ATION 08/19/2023 [facility] DATE CREATED AUTHOR AUTHOR'S ORGANIZ ATION 09/13/2023 [facility] Care Teams (unrecognized sec tion and content) Tile Grinder Relationship Specialty Start Date End Date Shea Vogel MD [address] [place] [address] PCP - General Family Medicine 10/05/22 Saira Proctor NP [address] [place] [address] PCP - ACO Reach 10/08/22 Saira Proctor CIVIL ENGINEERING DESIGNER [address] [place] [address] Nurse Practitioner Family Medicine 10/05/22 Tile Grinder Relationship Specialty Start Date End Date Shea Vogel MD [address] [place] [address] PCP - General Family Medicine 10/05/22 Saira Proctor NP [address] [place] [address] PCP - ACO Reach 10/08/22 Saira Proctor NP [address] [place] [address] Nurse Practitioner Family Medicine 10/05/22 Tile Grinder Relationship Specialty Start Date End Date Shea Vogel MD [address] [place] [address] PCP - General Family Medicine 10/05/22 Saira Proctor NP [address] [place] [address] PCP - ACO Reach 10/08/22 Saira Proctor NP [address] [place] [address] Nurse Practitioner Family Medicine 10/05/22 Tile Grinder Relationship Specialty Start Date End Date Shea Vogel MD [address] [facility] [place] [address] PCP - General [facility] 07/08/22 Tile Grinder Relationship Specialty Start Date End Date Shea Vogel MD [address] [facility] [place] [address] PCP - General [facility] 07/08/22 Tile Grinder Relationship Specialty Start Date End Date Shea Vogel MD [address] [facility] [place], [place] [id number] PCP - General [facility] 07/08/22 Reason for Visit (unrecogniz ed section [...] BE BASED ON THE PRIMARY CLINICAL RECORDS. [facility]. provides no warranty or guarantee of the accuracy or completeness of information in this document.
[2023-10-03] MEDS: KETOROLAC TROMETHAMINE 30 MG/ML VIAL 15 MG IVP (11:06)
[2023-10-03 11:30] LABS: Alanine Aminotransferase 9 U/L (14-59); Albumin Globulin Ratio 1.2; Albumin Level 3.7 g/dL (3.4-5.0); Alkaline Phosphatase 100 U/L (46-116); Aspartate Amino Transferase 14 U/L (15-37); BUN Creatinine Ratio 19.4; Bilirubin Total 0.9 mg/dL (0.2-1.0); Calcium 9.2 mg/dL (8.5-10.1); Chloride 99 mmol/L (98-107); Estimated GFR (African America >60 (>=60); Estimated GFR (Non-African Ame >60 (>=60); Globulin 3.2 g/dL; Glucose 150 mg/dL (74-106); Sodium 141 mmol/L (136-145); Total Protein 6.9 g/dL (6.4-8.2)
[2023-10-03 12:39] LABS: Basophils Percent Auto 0.1 % (0.2-2.0); Hematocrit 40.5 % (36.0-48.0); Hemoglobin 12.8 g/dL (12.0-16.0); Immature Granulocytes Abs Auto 0.04 10^3/uL (0.00-0.03); Immature Granulocytes Pct Auto 0.5 % (0.0-0.5); Lymphocytes Absolute Auto 0.3 10^3/uL (1.2-3.8); Lymphocytes Percent Auto 3.1 % (20.5-60.0); Mean Corpuscular HGB Conc 31.6 g/dL (29.9-35.2); Mean Corpuscular Hemoglobin 28.8 pg (26.7-34.0); Mean Platelet Volume 9.2 fL (9.5-13.5); Monocytes Absolute Auto 0.4 10^3/uL (0.3-0.8); Monocytes Percent Auto 4.2 % (1.7-12.0); Neutrophils Absolute Auto 7.7 10^3/uL (1.4-6.5); Neutrophils Percent Auto 92.1 % (43.0-75.0); Platelet Count 237 10^3/uL (150-450); Red Blood Count 4.45 10^6/uL (4.20-5.40); Red Cell Distribution Width 13.4 % (11.0-15.0); White Blood Count 8.3 10^3/uL (4.0-11.0)
[2023-10-03] MEDS: POTASSIUM BICARBONATE/CIT 25 MEQ TABLET EFF 50 MEQ PO (12:51)
[2023-10-03] MEDS: OXYCODONE HCL/ACETAMINOPHEN 5MG/325MG 1 TAB PO (12:51)
--- OUTSIDE RECORDS SUMMARY | 2023-10-03 13:07 | XMS_ITS | CCD ---
Author Organization [facility] Care Team Providers Care Metal Wire Coating Operator Name Role Phone FANNING, RICARDO E Unavailable Unavailable FANNING, RICARDO E Unavailable Unavailable PAY ., DR DAVID Admitting Unavailable PAY ., DR DAVID Attending Unavailable JASPREET, DR SANABRIA Primary Care Unavailable PAY ., DR DAVID Consulting Unavailable GRECHNY ., SALLY CARABALLO Consulting Unavailenrike Vogel MD, [facility] Primary Care Provider [phone] Enrico LAW RESEARCHER, Saira Pelaez Unavailable Enrico LAW RESEARCHER, Saira Pelaez Unavailable Jaspreet COLEMAN, [facility] Primary Care Provider SAIRA PROCTOR Attending Unavailable SHASHI SERVIN Attending Unavailab SAIRA Preston Attending Unavailable SAIRA PROCTOR Attending Unavailable SHASHI SERVIN Attending Unavailab SAIRA Preston Attending Unavailable SHASHI SERVIN Attending Unavailab HOANG Barrera Attending Unavailable EVE SAALS Attending Unavailable SHEA VOGEL Referring Unavailable JASPREET SHEA Augie Primary Care Unavailable EVE SALAS Attending Unavailable SHEA VOGEL Referring Unavailable JASPREET [facility] Primary Care Unavailable JASPREET SHEA Augie Primary Care Unavailable BELINDA DUMONT Consulting Unavailabl e INPATIENT, TELENEUROLOGY Consulting Unavail able Allergies Allergy Classification Reported Allergen(s) Allergy Type Date of Onset Reaction(s) Facility (1 source) buPROPion Drug Allergy 3 [facility] Repository (4 sources) buPROPion Drug Allergy 3 Unknown [facility] Healthcare (5 sources) buPROPion; Translations: [BUPROPION HCL] Drug Allergy 2 [facility] Medications Current Medications Medication Drug Class(es) Dates [...] 10-01-2022 Chronic Other aftercare (1 source) Other continuous churn buttermaker (current) drug therapy; Translations: [OTH STARCH AND PROSIZE MIXER CURRENT DRUG THERAPY] Onset: 08-31-2022 Episodic Other [...] 08-26-2022 Acetaminophen [Mass/Vol] ug/mL Critically low 10.0-30.0 [facility] Comment on above: Performed By: #### S ALYC, ETH, ACET, CMP, TSH #### [facility] [address] [place] [address] Dr. Harris Perdomo CBC AUTO DIFFon 08-26-2022 BASO # 0.0 103/ul Normal 0.0-0.1 [facility] Comment on above: Performed By: #### C BC #### [facility] [address] [place] [address] Dr. Harris Perdomo Basophils/100 WBC (Bld) 0.4 % Normal 0.2-2.0 [facility] Comment on above: Performed By: #### C BC #### [facility] [address] [place] [address] Dr. Harris Perdomo EO # 0.0 103/ul Normal 0.0-0.7 [facility] Comment on above: Performed By: #### C BC #### [facility] [address] [place] [address] Dr. Harris Perdomo Eosinophils/100 WBC (Bld) 0.2 % Critically low 0.9-7.0 [facility] Comment on above: Performed By: #### C BC #### [facility] [address] [place] [address] Dr. Harris Perdomo Erythrocyte distribution width (RBC) [Ratio] 12.1 % Normal 11.0-15.0 [facility] Comment on above: Performed By: #### C BC #### [facility] [address] [place] [address] Dr. Harris Perdomo Hematocrit (Bld) [Volume fraction] 39.3 % Normal 36.0-48.0 [facility] Comment on above: Performed By: #### C BC #### [facility] [address] [place] [address] Dr. Harris Perdomo Hemoglobin (Bld) [Mass/Vol] 13.3 g/dL Normal 12.0-16.0 [facility] Comment on above: Performed By: #### C BC #### [facility] [address] [place] [address] Dr. Harris Perdomo IG # 0.00 10e3/ul Normal 0.00-0.03 [facility] Comment on above: Performed By: #### C BC #### [facility] [address] [place] [address] Dr. Harris Perdomo IG % 0.0 % Normal 0.0-0.5 [facility] Comment on above: Performed By: #### C BC #### [facility] [address] [place] [address] Dr. Harris Perdomo LYMPH # 0.5 103/ul Critically low 1.2-3.[address] [facility] Comment on above: Performed By: #### C BC #### [facility] [address] [place] [address] Dr. Harris Perdomo Lymphocytes/100 WBC (Bld) 10.2 % Critically low 20.5-60.0 [facility] Comment on above: Performed By: #### C BC #### [facility] [address] [place] [address] Dr. Harris Perdomo MANUAL DIFF REQ NO Normal [facility] Comment on above: Performed By: #### C BC #### [facility] [address] [place] [address] Dr. Harris Perdomo MCH (RBC) [Entitic mass] 30.6 pg Normal 26.7-34.0 [facility] Comment on above: Performed By: #### C BC #### [facility] [address] [address] [address] Harris Perdomo MCHC (RBC) [Mass/Vol] 33.8 g/dL Normal 29.9-35.2 [facility] Comment on above: Performed By: #### C BC #### [facility] [address] [place] [address] Dr. Harris Perdomo MCV (RBC) [Entitic vol] 90.6 fL Normal 81.0-99.0 [facility] Comment on above: Performed By: #### C BC #### [facility] [address] [place] [address] Dr. Harris Perdomo MONO # 0.3 103/ul Normal 0.3-0.8 [facility] Comment on above: Performed By: #### C BC #### [facility] [address] [place] [address] Dr. Harris Perdomo Monocytes/100 WBC (Bld) 6.2 % Normal 1.7-12.0 [facility] Comment on above: Performed By: #### C BC #### [facility] [address] [place] [address] Dr. Harris Perdomo NEUT # 4.3 103/ul Normal 1.4-6.5 [facility] Comment on above: Performed By: #### C BC #### [facility] [address] [place] [address] Dr. Harris Perdomo Neutrophils/100 WBC (Bld) 83.0 % Critically high 43.0-75.0 [facility] Comment on above: Performed By: #### C BC #### [facility] [address] [place] [address] Dr. Harris Perdomo Platelet mean volume (Bld) [Entitic vol] 8.3 fL Critically low 9.5-13.5 [facility] Comment on above: Performed By: #### C BC #### [facility] [address] [place] [address] Dr. Harris Perdomo PLT 251 103/ul Normal 150-450 [facility] Comment on above: Performed By: #### C BC #### [facility] [address] [address] [address] Harris Perdomo RBC 4.34 106/ul Normal 4.20-5.40 [facility] Comment on above: Performed By: #### C BC #### [facility] [address] [place], [place] [address] Dr. Harris Perdomo WBC 5.2 103/ul Normal 4.0-11.0 [facility] Comment on above: Performed By: #### C BC #### [facility] [address] [place] [address] Dr. Harris Perdomo [facility] SARS-CoV-2 (COVID-19) RNA JOSE G+probe Ql (Unsp spec) Not detected Normal NOT DETECTED [facility] Comment on above: Result Comment: When [...] for this test is supported by the [employer] Maker of Health and Human Service's declaration that [...] used). Performed By: #### C VDTBH #### [facility] [address] [place] [address] Dr. Harris Perdomo DRUG SCREEN RAPID (URINE)on 08-26-2022 AMP Negative Normal NEGATIVE [facility] Comment on above: Performed By: #### E RUR, DRUGRPD #### [facility] [address] [place] [address] Dr. Harris Perdomo BAR Negative Normal NEGATIVE [facility] Comment on above: Performed By: #### E RUR, DRUGRPD #### [facility] [address] [place] [address] Dr. Harris Perdomo BUP Negative Normal NEGATIVE [facility] Comment on above: Performed By: #### E RUR, DRUGRPD #### [facility] [address] [place] [address] Dr. Harris Perdomo BZO Positive Abnormal NEGATIVE [facility] Comment on above: Performed By: #### E RUR, DRUGRPD #### [facility] [address] [place] [address] Dr. Harris Perdomo LAURA Negative Normal NEGATIVE [facility] Comment on above: Performed By: #### E RUR, DRUGRPD #### [facility] [address] [place] [address] Dr. Harris Perdomo CUT-OFFS SEE BELOW Normal [facility] Comment on above: Result Comment: AMP [...] Performed By: #### E RUR, DRUGRPD #### [facility] [address] [place] [address] Dr. Harris Perdomo DRUG CUT HEADER DRUG CLASS TEST SYST EM CUT-OFF CONCENTRATIONS ARE FOLLOWS: Normal [facility] Comment on above: Performed By: #### E RUR, DRUGRPD #### [facility] [address] [place] [address] Dr. Harris Perdomo mAMP Negative Normal NEGATIVE [facility] Comment on above: Performed By: #### E RUR, DRUGRPD #### [facility] [address] [place] [address] Dr. Harris Perdomo MTD Negative Normal NEGATIVE [facility] Comment on above: Performed By: #### E RUR, DRUGRPD #### [facility] [address] [place] [address] Dr. Harris Perdomo OPI Negative Normal NEGATIVE [facility] Comment on above: Performed By: #### E RUR, DRUGRPD #### [facility] [address] [place] [address] Dr. Harris Perdomo OXY Negative Normal NEGATIVE [facility] Comment on above: Performed By: #### E RUR, DRUGRPD #### [facility] [address] [place] [address] Dr. Harris Perdomo PCP Negative Normal NEGATIVE [facility] Comment on above: Performed By: #### E RUR, DRUGRPD #### [facility] [address] [place] [address] Dr. Harris Perdomo PPX Negative Normal NEGATIVE [facility] Comment on above: Performed By: #### E RUR, DRUGRPD #### [facility] [address] [place] [address] Dr. Harris Perdomo TCA Negative Normal NEGATIVE [facility] Comment on above: Performed By: #### E RUR, DRUGRPD #### [facility] [address] [place] [address] Dr. Harris Perdomo THC Negative Normal NEGATIVE [facility] Comment on above: Performed By: #### E RUR, DRUGRPD #### [facility] [address] [place] [address] Dr. Harris Perdomo ER URINE PROFILEon 3 Bilirubin Ql (U) Negative Normal NEGATIVE [facility] Comment on above: Performed By: #### E RUR, DRUGRPD #### [facility] [address] [place] [address] Dr. Harris Perdomo Clarity (U) CLEAR Normal CLEAR [facility] Comment on above: Performed By: #### E RUR, DRUGRPD #### [facility] [address] [place] [address] Dr. Harris Perdomo Color (U) LT. YELLOW Normal YELLOW [facility] Comment on above: Performed By: #### E RUR, DRUGRPD #### [facility] [address] [place] [address] Dr. Harris Perdomo ERUAHMora A micrscopic examina tion will be performed if indicated. Normal [facility] Comment on above: Performed By: #### E RUR, DRUGRPD #### [facility] [address] [place] [address] Dr. Harris Perdomo Glucose Ql (U) Negative Normal NEGATIVE [facility] Comment on above: Performed By: #### E RUR, DRUGRPD #### [facility] [address] [place] [address] Dr. Harris Perdomo Hemoglobin Ql (U) Negative Normal NEGATIVE [facility] Comment on above: Performed By: #### E RUR, DRUGRPD #### [facility] [address] [place] [address] Dr. Harris Perdomo Ketones Ql (U) Negative Normal NEGATIVE [facility] Comment on above: Performed By: #### E RUR, DRUGRPD #### [facility] [address] [place] [address] Dr. Harris Perdomo LEUKOCYTES Negative Normal NEGATIVE [facility] Comment on above: Performed By: #### E RUR, DRUGRPD #### [facility] [address] [place] [address] Dr. Harris Perdomo Nitrite Ql (U) Negative Normal NEGATIVE [facility] Comment on above: Performed By: #### E RUR, DRUGRPD #### [facility] [address] [place] [address] Dr. Harris Perdomo pH (U) 6.5 [pH] Normal 5-9 [facility] Comment on above: Performed By: #### E RUR, DRUGRPD #### [facility] [address] [place] [address] Dr. Harris Perdomo SPEC GRAVITY <=1.005 Abnormal 1.005-<=1.02 5 [facility] Comment on above: Performed By: #### E RUR, DRUGRPD #### [facility] [address] [place] [address] Dr. Harris Perdomo UA PROTEIN Negative Normal NEGATIVE/ TRACE [facility] Comment on above: Performed By: #### E RUR, DRUGRPD #### [facility] [address] [place] [address] Dr. Harris Perdomo UR MICRO IND NOT INDICATED Normal [facility] Comment on above: Performed By: #### E RUR, DRUGRPD #### [facility] [address] [place] [address] Dr. Harris Perdomo Urobilinogen Qn (U) 0.2 {Baylee'U}/dL Normal 0.2 - 1. 0 [facility] Comment on above: Performed By: #### E RUR, DRUGRPD #### [facility] [address] [place] [address] Dr. Harris Perdomo ETHANOL (BLD ALC)on 08-27-19 23 ALC NOTE NOTE: 80 mg/dl is th e legal limit for a blood alcohol level Normal [facility] Comment on above: Performed By: #### S ALYC, ETH, ACET, CMP, TSH #### [facility] [address] [place] [address] Dr. Harris Perdomo Ethanol [Mass/Vol] mg/dL Normal [facility] Comment on above: Performed By: #### S ALYC, ETH, ACET, CMP, TSH #### [facility] [address] [place] [address] Dr. Harris Perdomo PROF 14(COMP METB)on 023 Albumin [Mass/Vol] 3.8 g/dL Normal 3.4-5.0 [facility] Comment on above: Performed By: #### S ALYC, ETH, ACET, CMP, TSH #### [facility] [address] [place] [address] Dr. Harris Perdomo Albumin/Globulin [Mass ratio] 1.2 {ratio} Normal [facility] Comment on above: Performed By: #### S ALYC, ETH, ACET, CMP, TSH #### [facility] [address] [place] [address] Dr. Harris Perdomo ALP [Catalytic activity/Vol] 103 U/L Normal 46-116 [facility] Comment on above: Performed By: #### S ALYC, ETH, ACET, CMP, TSH #### [facility] [address] [place] [address] Dr. Harris Perdomo ALT [Catalytic activity/Vol] 6 U/L Critically low 14-59 [facility] Comment on above: Performed By: #### S ALYC, ETH, ACET, CMP, TSH #### [facility] [address] [place] [address] Dr. Harris Perdomo Anion gap [Moles/Vol] 12.3 mmol/L Normal [facility] Comment on above: Performed By: #### S ALYC, ETH, ACET, CMP, TSH #### [facility] [address] [place] [address] Dr. Harris Perdomo AST [Catalytic activity/Vol] 14 U/L Critically low 15-37 [facility] Comment on above: Performed By: #### S ALYC, ETH, ACET, CMP, TSH #### [facility] [address] [place] [address] Dr. Harris Perdomo Bilirubin [Mass/Vol] 0.4 mg/dL Normal 0.2-1.0 [facility] Comment on above: Performed By: #### S ALYC, ETH, ACET, CMP, TSH #### [facility] [address] [place] [address] Dr. Harris Perdomo Calcium [Mass/Vol] 9.1 mg/dL Normal 8.5-10.1 [facility] Comment on above: Performed By: #### S ALYC, ETH, ACET, CMP, TSH #### [facility] [address] [place] [address] Dr. Harris Perdomo Chloride [Moles/Vol] 106 mmol/L Normal 98-107 [facility] Comment on above: Performed By: #### S ALYC, ETH, ACET, CMP, TSH #### [facility] [address] [address] [address] Harris Perdomo CO2 [Moles/Vol] 28.7 mmol/L Normal 21.0-32.0 [facility] Comment on above: Performed By: #### S ALYC, ETH, ACET, CMP, TSH #### [facility] [address] [address] [address] Harris Perdomo Creatinine [Mass/Vol] 0.65 mg/dL Normal 0.55-1.02 [facility] Comment on above: Performed By: #### S ALYC, ETH, ACET, CMP, TSH #### [facility] [address] [address] [address] Harris Perdomo EGFR-AF SAUDI ARABIAN >60 Normal >=60 [facility] Comment on above: Performed By: #### S ALYC, ETH, ACET, CMP, TSH #### [facility] [address] [place] [address] Dr. Harris Perdomo EGFR-NON AF SAUDI ARABIAN >60 Normal >=60 [facility] Comment on above: Performed By: #### S ALYC, ETH, ACET, CMP, TSH #### [facility] [address] [address] [address] Harris Perdomo Globulin (S) [Mass/Vol] 3.2 g/dL Normal [facility] Comment on above: Performed By: #### S ALYC, ETH, ACET, CMP, TSH #### [facility] [address] [address] [address] Harris Perdomo Glucose [Mass/Vol] 99 mg/dL Normal 74-106 [facility] Comment on above: Performed By: #### S ALYC, ETH, ACET, CMP, TSH #### [facility] [address] [address] [address] Harris Perdomo Potassium [Moles/Vol] 4.0 mmol/L Normal 3.5-5.1 [facility] Comment on above: Performed By: #### S ALYC, ETH, ACET, CMP, TSH #### [facility] [address] [place] [address] Dr. Harris Perdomo Protein [Mass/Vol] 7.0 g/dL Normal 6.4-8.2 [facility] Comment on above: Performed By: #### S ALYC, ETH, ACET, CMP, TSH #### [facility] [address] [address] [address] Harris Perdomo Sodium [Moles/Vol] 143 mmol/L Normal 136-145 [facility] Comment on above: Performed By: #### S ALYC, ETH, ACET, CMP, TSH #### [facility] [address] [address] [address] Harris Perdomo Urea nitrogen [Mass/Vol] 20.0 mg/dL Critically high 7.0-18.0 [facility] Comment on above: Performed By: #### S ALYC, ETH, ACET, CMP, TSH #### [facility] [address] [address] [address] Harris Perdomo Urea nitrogen/Creatinine [Mass ratio] 30.8 mg/mg Normal [facility] Comment on above: Performed By: #### S ALYC, ETH, ACET, CMP, TSH #### [facility] [address] [address] [address] Harris Perdomo SALICYLATEon 08-26-2022 SALICYLATE <2.8 Normal <=19.9 [facility] Comment on above: Performed By: #### S ALYC, ETH, ACET, CMP, TSH #### [facility] [address] [address] [address] Harris Perdomo TSHon 08-26-2022 TSH 1.224 uIU/mL Normal 0.358-3.740 [facility] Comment on above: Performed By: #### S ALYC, ETH, ACET, CMP, TSH #### [facility] [address] [address] [address] Harris Perdomo XR Knee 3 Views Lefton 02-09 XR Knee 3 Views Left FINDINGS: Mild bilateral patellofemoral joint space loss. No cortical or subchondral fracture. No significant osteophyte formation. Small left sided patellofemoral effusion. IMPRESSION: 1. 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 Report reported and signed by Kieran Caputo on 02/09/2022 1429 Normal [facility] Special[facility] XR Knee 3 Views Righton 01-16 XR Knee 3 Views Right Please see left knee report. Report reported and signed by Kieran Caputo on 02/09/2022 1430 Normal [facility] Nonprofit Fundraiser XR Humerus Righton XR Humerus Right HISTORY: [...] by Kieran Caputo on 09/11/2021 1054 Normal [facility] Lipid Panelon 05-14-2021 Cholesterol [Mass/Vol] 199 mg/dL Normal 125-200 [facility] Comment on above: Result Comment: Low risk < 200mg/dL Borderline risk 201-239 mg/dl High risk > or equal to 240 Performed By: #### L IPD #### [facility] [address] [place], [place] [id number] Cholesterol in HDL [Mass/Vol] 51 mg/dL Normal >40 [facility] Comment on above: Result Comment: High Cardiovascular Risk HDL <40 mg/dL Low Cardiovascular Risk HDL > or equal to 60 mg/dl Performed By: #### L IPD #### [facility] [address] [place], [place] [id number] Cholesterol in LDL [Mass/Vol] 112 mg/dL Normal [facility] Comment on above: Result Comment: LDL ATP III CLASSIFICATION LDL less than 100 mg/dl Optimal LDL 100-129 mg/dl Near or above optimal LDL 130-159 Borderline high LDL 160-189 High LDL greater than 189 mg/dl Very High Performed By: #### L IPD #### [facility] [address] [place], [place] [id number] Cholesterol in VLDL [Mass/Vol] 36 mg/dL Normal [facility] Comment on above: Performed By: #### L IPD #### [facility] [address] [facility] [place] [id number] Cholesterol.total/C holesterol in HDL [Mass ratio] 4 {ratio} Normal [facility] Comment on above: Performed By: #### L IPD #### [facility] [address] [place] [id number] Triglyceride [Mass/Vol] 178 mg/dL High 30-150 [facility] [employer] Comment on above: Result Comment: TRIG ATPIII CLASSIFICATIONS TRIG less than 150 mg/dl Normal TRIG 150-199 mg/dl Borderline High TRIG 200-500 mg/dl High TRIG greather than 500 mg/dl Very High Performed By: #### L IPD #### [facility] [address] [place], [place] [id number] Q - QUESTASSURED(TM) 25-OH V IT D(D2D3)LC/MS/MSon 05-14-2021 VITAMIN D, 25-OH, D2 <4 Normal [facility] Comment on above: Order Comment: [facility] Testing performed at: [employer], [address], [place], [place], , [employer]: Andrey Lott M.D.,PhD [facility] Date/Time: [facility] Results Received Date/Time: [facility] Reported Date/Time: Result Comment: This test was developed and its analytical performance characteristics have been determined by [employer] [place], [place]. It has not been cleared or approved by the U.S. Food and Drug Administration. This assay has been validated pursuant to the CLIA regulations and is used for clinical purposes. Performed By: #### [id number] #### [facility] [address] [place] [address] VITAMIN D, 25-OH, D3 51 ng/mL Normal [facility] Comment on above: Order Comment: [facility] performed at: [employer], [address], [place], [place], , [employer]: Andrey Lott M.D.,PhD [facility] Date/Time: [id number] [facility] Results Received Date/Time: [facility] Reported Date/Time: Result Comment: This test was developed and its analytical performance characteristics have been determined by [employer] [place], [place]. It has not been cleared or approved by the U.S. Food and Drug Administration. This assay has been validated pursuant to the CLIA regulations and is used for clinical purposes. Performed By: #### [id number] #### [facility] [address] [place] [address] VITAMIN D, 25-OH, TOTAL 51 ng/mL Normal 30-100 [facility] Comment on above: Order Comment: Quest Testing performed at: [facility], trend[employer], [address], [place], [place], , Silk Hanger: Andrey Lott M.D.,PhD Quest Collection Date/Time: Quest [...] 2011;96(7):1911-30. For additional information, please refer to http://education.VoiceObjects.Continuity Control/faq/BOM705 (This link is being provided for informational/ educational purposes only.) Performed By: #### [id number] #### [facility] Default [address] [place] [address] SCREENING MAMMOGRAM W/MAKENNA, BILATERAL*on 05-14-2021 SCREENING MAMMOGRAM [...] by Kieran Caputo on 05/14/2021 1337 Normal [facility] Nonprofit Fundraiser CNOVSPon 02-04-2017 CNOVSP Visit (SP) Office (HEMACL) LISA MÁRQUEZ ([id number]) 1955 [facility] Time Provider Department02/04/17 2:00 PM RICARDO CARRASCO HEMACL During your visit today, we recorded the following information about you: Temperature Pulse Respiration Blood pressure 98 degrees 85/minute 18/minute 115/69 Weight Height 44 kg 1.549 mMINDY LUTHER DOUGHERTY PA-C 02/04/2017 1:50 PM SignedPatient: Armando Johnson Alma DeliarDOB: 1955Race: Katya Complaint:Endometrial CancerHPI: Armando is here for follow up. She had endometrial cancer diagnosed [id number] and treated with chemotherapy and radiation. She [...] has had 2 CTs to monitorthis at [place] and she states it has been stable.Current [...] tremor to left handImaging Studies: CXR at [facility] 01/19/2017 was negativeASSESSMENT/PLAN:1 . 182.0 Endometrial cancerShe has no evidence of disease recurrence. She is now 12 years out from [facility] and she will follow up with her PCP for yearly chest x-rays. 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 She had endometrial cancer diagnosedin 2004 and treated with chemotherapy and radiation. [facility] yearly for her [...] tremor to left handImaging Studies: CXR at [facility] 01/19/2017 was negativeASSESSMENT/PLAN:1 . 182.0 Endometrial cancerShe has no evidence of disease recurrence. She is now 12 years out fromher cancer and she will follow up with her PCP for yearly chest x-rays. MIS DOUGHERTY PA-C Normal [facility] Remote CBCDIF (for [facility] use o nly)on 02-04-2017 Abs Baso 0.01 k/uL Normal 0.00-0.10 [facility] Abs [place] 0.27 k/uL Normal 0.00-0.86 [facility] Abs Neut 2.36 k/uL Normal 1.45-7.50 [facility] Basophils/100 WBC Auto (Bld) 0.3 % Normal [facility] Eosinophils 0.03 10*3/uL Normal 0.00-0.45 [facility] Eosinophils/100 leukocytes 0.9 % Normal [facility] Erythrocyte distribution width Auto Ratio (RBC) 12.8 % Normal 11.5-15.0 [facility] Erythrocytes (RBC) 4.14 10*6/uL Normal 3.90-5.20 [facility] Hematocrit (HCT) 37.9 % Normal 36.0-46.0 [facility] Hemoglobin mass conc (Bld) 12.6 g/dL Normal 11.5-15.5 [facility] Lymphocytes 0.76 10*3/uL Low 1.00-4.00 [facility] Lymphocytes/100 leukocytes 22.2 % Normal [facility] MCH 30.4 pG Normal 26.0-34.0 [facility] MCHC mass conc (RBC) 33.2 g/dL Normal 30.5-36.0 [facility] MCV 91.5 fL Normal 80.0-100.0 [facility] Monocytes/100 leukocytes 7.9 % Normal [facility] Neutrophils/100 WBC Auto (Bld) 68.7 % Normal [facility] Platelet mean volume (PMV) 8.7 fL Low 9.0-12.7 [facility] Platelets 198 10*3/uL Normal 150-400 [facility] WBC (Leukocytes) 3.43 10*3/uL Low 3.70-11.00 [facility] Vital Signs Date Time Vital Sign Value Performing Clinician Facility 08-18-2023 09:52-0400 Diastolic blood pressure 73 mm[Hg] Eve Verhoff PA-C Work Phone: [facility] 08-18-2023 09:52-0400 Respiratory rate 18 /min Eve Verhoff PA-C Work Phone: [facility] 08-18-2023 09:52-0400 SaO2% (BldA) [Mass fraction] 96 % Eve Verhoff PA-C Work Phone: [facility] 08-18-2023 09:52-0400 Systolic blood pressure 123 mm[Hg] Eve Verhoff PA-C Work Phone: [facility] 07-21-2023 10:44-0500 Body height 154.9 cm Eve Verhoff PA-C Work Phone: [facility] 07-21-2023 10:44-0500 Body mass index (BMI) [Ratio] 21.92 kg/m2 Eve Verhoff PA-C Work Phone: [facility] 07-21-2023 10:44-0500 Body weight 52.62 kg Eve Verhoff PA-C Work Phone: [facility] 07-21-2023 10:44-0500 Diastolic blood pressure 63 mm[Hg] Eve Verhoff PA-C Work Phone: [facility] 07-21-2023 10:44-0500 Heart rate 79 /min Eve Verhoff PA-C Work Phone: [facility] 07-21-2023 10:44-0500 Respiratory rate 18 /min Eve Verhoff PA-C Work Phone: [facility] 07-21-2023 10:44-0500 SaO2% (BldA) [Mass fraction] 97 % Eve Verhoff PA-C Work Phone: [facility] 07-21-2023 10:44-0500 Systolic blood pressure 119 mm[Hg] Eve Salas PA-C Work Phone: [facility] 07-01-2023 13:36-0500 Body height 154.9 cm Saira Proctor LAW RESEARCHER Work Phone: [facility] 07-01-2023 13:36-0500 Body mass index (BMI) [Ratio] 21.92 kg/m2 Saira Proctor LAW RESEARCHER Work Phone: [facility] 07-01-2023 13:36-0500 Body weight 52.62 kg Saira Proctor LAW RESEARCHER Work Phone: [facility] 07-01-2023 13:36-0500 Diastolic blood pressure 82 mm[Hg] Saira Proctor LAW RESEARCHER Work Phone: [facility] 07-01-2023 13:36-0500 Heart rate 78 /min Saira Proctor LAW RESEARCHER Work Phone: [facility] 07-01-2023 13:36-0500 Respiratory rate 18 /min Saira Proctor LAW RESEARCHER Work Phone: [facility] 07-01-2023 13:36-0500 SaO2% (BldA) [Mass fraction] 98 % Saira Proctor LAW RESEARCHER Work Phone: [facility] 07-01-2023 13:36-0500 Systolic blood pressure 128 mm[Hg] Saira Proctor LAW RESEARCHER Work Phone: [facility] Encounters Encounter Date Encounter Type Care Provider Facility Start: 09-07-2023 End: 09-10-2023 Emergency department patient visit SHEA Ghosh [facility] Start: 08-18-2023 End: 08-18-2023 ambulatory EVE SALAS [facility] Start: 08-18-2023 End: 08-18-2023 Office outpatient visit 25 minutes Eve Salas PA-C Work Phone: [facility] Comment on above: Lumbar spondylosis; Bilateral leg cramps Start: 08-10-2023 End: 08-10-2023 ambulatory SAIRA PROCTOR Not Available Start: 07-29-2023 Telephone encounter Dana Kamara [facility] Start: 07-27-2023 End: 07-27-2023 ambulatory SHASHI Natarajan CHERYLE-NOSSEK Not Available Start: 07-21-2023 End: 07-21-2023 ambulatory EVE SALAS [facility] Start: 07-21-2023 End: 07-21-2023 Office outpatient new 30 minutes Eve Salas PA-C Work Phone: [facility] Comment on above: Lumbar spondylosis ( Primary Dx); Bilateral leg cramps Start: 07-01-2023 End: 07-01-2023 ambulatory SAIRA Benigno PROCTOR Not Available Start: 07-01-2023 Bamboo flowsheet Saira Proctor LAW RESEARCHER Work Phone: [facility] Start: 07-01-2023 Bamboo flowsheet Saira Proctor LAW RESEARCHER Work Phone: [facility] Start: 07-01-2023 Telephone encounter Saira maldonado LAW RESEARCHER Work Phone: [facility] Comment on above: Medication Question Start: 07-01-2023 End: 07-01-2023 Office outpatient visit 15 minutes Saira Proctor LAW RESEARCHER Work Phone: [facility] Comment on [...] Start: 02-04-2017 End: 02-05-2017 Ambulatory RICARDO CARRASCO [facility] Procedures Date Procedure Procedure Detail Performing Clinician Start: 10-30-2022 Adult depression scr eening assessment Eve Salas PA-C Work Phone: Start: 10-15-2022 Mammography Saira Proctor LAW RESEARCHER Work Phone: Start: 10-01-2022 H/O: hysterectomy H/O: hysterectomy Saira Proctor LAW RESEARCHER Work Phone: Start: 10-08-2017 Colonoscopy Saira Proctor LAW RESEARCHER Work Phone: Plan of Treatment Date Care Activity Detail Author Start: 10-09-2027 Screening for malign ant neoplasm of colon [facility] Start: 08-17-2024 Tobacco Screening Tobacco Screening [facility] Start: 07-20-2024 Adult BMI Screening Adult BMI Screen ing [facility] Start: 07-20-2024 Tobacco Screening Tobacco Screening [facility] Start: 01-16-2024 Influenza vaccination Influenza Vacc ine [facility] Start: 01-07-2024 Medicare Annual Wellness (AWV) Medicare Annual Wellness (AWV) [facility] Start: 10-31-2023 Depression Screening Depression Scre ening [facility] Start: 10-29-2023 End: 10-29-2023 Patient encounter procedure 10/29/2023 11:30 AM EDT Office Visit [facility] [address] [place] [address] Arpan Delacruz MD [address] [place] [address], [address] [address] [facility] Start: 10-16-2023 Screening for malign ant neoplasm of breast Mammogram [facility] Start: 10-01-2023 End: 10-01-2023 Patient encounter procedure 10/01/2023 12:00 PM EDT Office Visit [facility] [address] [place] [address] Arpan Delacruz MD [address] [place] [address], [address] [place] [phone] [facility] Start: 09-29-2023 End: 09-29-2023 Patient encounter procedure 09/29/2023 9:45 AM EDT Office Visit [facility] [address] [place] [address] Eve Salas PA-C [address] [place] [address] [facility] Start: 08-18-2023 End: 08-18-2023 Patient encounter procedure 08/18/2023 10:00 AM EDT Office Visit [facility] [address] [place] [phone] Eve Salas PA-C [address] [place] [address] [facility] Start: 08-12-2023 End: 08-12-2023 Patient encounter procedure 08/12/2023 11:00 AM EDT Office Visit [facility] [address] [place] [phone] Saira Proctor, FADY [address] [place] [address] [facility] Start: 07-27-2023 End: 07-27-2023 Patient encounter procedure 07/27/2023 11:00 AM EDT Office Visit [facility] [address] [facility] [address] [place] [phone] Shashi Servin, SYSTEMS PROGRAMMER ANALYST-ASSISTANT MEN'S LACROSSE COACH [address] [facility] [address] [place] [address] [facility] Start: 07-19-2023 End: 07-19-2023 Patient encounter procedure 07/19/2023 2:00 PM EST Office Visit [facility] [address] [place] [phone] Hoang Eddy, DPM [address] [place], [place] [phone] [facility] Start: 07-01-2023 End: 07-01-2023 Patient encounter procedure 07/01/2023 1:30 PM EST Office Visit [facility] [address] [facility] [place] [phone] Saira Proctor NP [address] [place] [address] Arrived [facility] Comment on above: Arrived Start: 01-15-2023 COVID-19 Vaccine ( season) COVID-19 Vaccine ( season) [facility] Start: 11-05-2019 Fall Risk Screening Fall Risk Screen [facility] Start: 1973 DTaP,Tdap and Td Vaccines (1 - Tdap) DTaP,Tdap and Td Vaccines (1 - Tdap) [facility] Start: 1955 Medicare Annual Wellness Visit Medicare Annual Wellness Visit [facility] Start: 1955 Screening for malign ant neoplasm of colon [facility] Immunizations Immunization Date Immunization Notes Care Provider Fa cili 05-13-2023 Influenza, High-dose Seasonal, Quadrivalent, Preservative Free Saira Proctor NP Work Phone: [facility] 05-13-2023 influenza virus vacc ine, unspecified formulation Eve Salas PA-C Work Phone: [facility] 01-06-2023 pneumococcal conjuga te vaccine, 13 valent Saira Proctor NP Work Phone: [facility] 04-16-2022 Moderna SARS-CoV-2 50mcg/0.5mL Booster Saira Proctor LAW RESEARCHER Work Phone: [facility] 02-09-2022 influenza, injectabl e, quadrivalent, preservative free Saira Proctor LAW RESEARCHER Work Phone: [facility] 04-04-2021 Pfizer Purple Cap SARS-CoV-2 Vaccination Saira Proctor LAW RESEARCHER Work Phone: [facility] 02-12-2021 Influenza, High-dose Seasonal, Quadrivalent, Preservative Free Saira Proctor LAW RESEARCHER Work Phone: [facility] 05-02-2020 influenza, high dose seasonal, preservative-free Eve Verhoff PA-C Work Phone: [facility] 05-02-2020 Influenza, High-dose Seasonal, Quadrivalent, Preservative Free Saira Proctor LAW RESEARCHER Work Phone: [facility] 05-02-2020 pneumococcal polysaccharide vaccine, 23 valent Saira Proctor LAW RESEARCHER Work Phone: [facility] 09-30-2019 zoster vaccine recombinant Saira Proctor LAW RESEARCHER Work Phone: [facility] 07-28-2019 zoster vaccine recombinant Saira Proctor LAW RESEARCHER Work Phone: [facility] 03-23-2019 influenza, injectabl e, quadrivalent, contains preservative Eve Verhoff PA-C Work Phone: [facility] 03-23-2019 influenza, injectabl e, quadrivalent, preservative free Saira Proctor LAW RESEARCHER Work Phone: [facility] 03-30-2018 influenza, injectabl e, quadrivalent, contains preservative Eve Verhoff PA-C Work Phone: [facility] 03-30-2018 influenza, injectabl e, quadrivalent, preservative free Saira Proctor LAW RESEARCHER Work Phone: [facility] 03-11-2017 influenza, injectabl e, quadrivalent, contains preservative Eve Verhoff PA-C Work Phone: [facility] 03-11-2017 influenza, injectabl e, quadrivalent, preservative free Sairanew Proctor LAW RESEARCHER Work Phone: [facility] 02-20-2016 influenza, injectabl e, quadrivalent, preservative free Sairanew Proctor LAW RESEARCHER Work Phone: [facility] Healthcare Payers Date Payer Category Payer Medicare [id number] 2019 Unknown [id number] 1959 Medicare [id number] 1959 Unknown [id number] 1955 Unknown [id number] 2.16.84 [id number] 1954 Unknown [id number] 2.16.84 [id number] 1954 Unknown [id number] 2.16.84 [id number] 1954 Unknown [id number] 2.16.84 [id number] 1954 Unknown [id number] 2.16.84 [id number] 1954 Unknown [id number] 2.16.840 .[id number] 1954 Unknown [id number] 2.16.840 .[id number] 1954 Unknown [id number] 2.16.840 .[id number] 1954 Unknown [id number] 2.16.840 .[id number] 1954 Unknown [id number] 2.16.8 [id number] 1954 Unknown [id number] 2.16.8 [id number] 1954 Unknown [id number] 2.16.8 [id number] Social History Date Type Detail Facility Start: 03-13-2022 End: 09-26-2022 Tobacco smoking status NHIS Never smoked tobacco [facility] Start: 03-13-2022 End: 09-26-2022 Tobacco use and exposure Smokeless tobacco non-user [facility] Start: 06-01-2023 End: 07-01-2023 Alcohol intake Ex-drinker (finding) [facility] Start: 06-04-2020 End: 10-05-2022 History of Social function [facility] Start: 06-04-2020 End: 10-05-2022 Alcohol Use Disorder Identification Test - Consumption [AUDIT-C] [facility] How often to you hav e a drink containing alcohol? Never [facility] How many standard dr inks containing alcohol do you have on a typical day? Patient does not drink [facility] Start: 04-14-2023 Alcohol Comment none, Caffeine intake: none [facility] Start: 1955 Sex Assigned At Not on file [facility] Start: 07-21-2023 End: 08-18-2023 Alcohol intake Current non-drinker of alcohol (finding) [facility] Equipment Procedure Code Equipment Code Equipment Origin al Text Equipment Identifier Dates Cement Bn - [id number] Start: 07-10-2022 Nail Im 170mm 11 mm 130d Cnn Tfn-Adv Lat Rlf Cut Ti Niobium - Sna - [id number] Start: 09-14-2021 Blade Im Nl Au 9 0mm 10.35mm Tfn-Adv Hlcl Fem Prox Ti Niobium - Sna - [id number] Start: 09-14-2021 Screw Bn 32mm 5m m 4.3mm St Lck Strdr Blnt Tip Ti T25 Ft Strl - Sna - [id number] Start: 09-14-2021 Goals Date Patient Goal [...] 08-18-2023 History of Presen t illness Narrative [facility] [address] [place] [address] Patient: Armando Márquez Sex: female : 1955 Age: 67 y.o. PCP: Shea Vogel MD 08/18/2023 Armando Márquez is here for a(n) follow up after increasing Gabapentin to 600mg TID. This dose was too strong and patient decreased to 400mg TID . Chief Complaint Patient presents with Back Pain HPI: PT in past at [facility] (where she currently lives) which made her [...] (BLE). Associated symptoms comments: [facility]. She reports no foreign bodies [...] Performed by Emmanuel Dela Cruz MD at [facility] BREAST BIOPSY 2003 stereotactic benign COLONOSCOPY N/A 10/08/2017 Performed by Sedrick Huizar MD at [place] [facility] HYSTERECTOMY 05/24/2004 [facility] in [place], [place] INSERTION INTRAMEDULLARY TROCHANTERIC FIXATION NAIL HIP Left 09/14/2021 Performed by Joshua Ramos MD at [place] SUR[facility] SELECTIVE LASER TRABECULOPLASTY Right 02/24/2019 [facility] [...] PA-C 08/18/23 1146 documented in this encounter [facility] 08-18-2023 Miscellaneous Notes Addended by: EVE SALAS on: 08/18/2023 01:53 PM Modules accepted: Orders documented in this encounter [facility] 08-18-2023 Note Addended by: EVE SALAS on: 08/18/2023 01:53 PM Modules accepted: Orders [facility] 07-29-2023 Miscellaneous Notes [facility] report gabapentin 600 mg TID is too much for patient. She isn't walking and has to be wheeled down to meals, has increased confusion. They are requesting decreasing dose to 400 mg TID Please advise Please reduce back to 400tid Medication [facility] and sent back to them with Matts signature. documented in this encounter [facility] 07-29-2023 Telephone encounter Note Received call and fax from [facility]. They report gabapentin 600 mg TID is too much for patient. She isn't walking and has to be wheeled down to meals, has increased confusion. They are requesting decreasing dose to 400 mg TID Please advise [facility] 07-29-2023 Telephone encounter Note Please reduce back to 400tid [facility] Work Phone: 07-29-2023 Telephone encounter Note Medication change completed [facility] fax [facility] and sent back to them with Matts signature. [facility] 07-21-2023 History of Presen t illness Narrative [facility] [address] [place] [address] Patient: Armando Márquez Sex: female : 1955 Age: 67 y.o. PCP: Shea Vogel MD 07/21/2023 Armando Márquez is here for a(n) initial consultation. Chief Complaint Patient presents with Leg Pain HPI: PT in past at [facility] (where she currently lives) which made her [...] Date Anemia Back pain Depression Endometrial cancer ([facility]) 2004 Idiopathic hypotension Left atrial enlargement Low back pain Neck pain Osteoporosis Parkinsonism Shaking Left Hand Shingles Skin carcinoma Visual impairment Past Surgical History: Procedure Laterality Date AUGMENTATION VERTEBRAL KYPHOPLASTY SPINE L 1 N/A 07/10/2022 Performed by Emmanuel Dela Cruz MD at [facility] BREAST BIOPSY 2004 stereotactic benign COLONOSCOPY N/A 10/08/2017 Performed by Sedrick Huizar MD at [place] [facility] HYSTERECTOMY 05/24/2004 [facility] in [place], [place] INSERTION INTRAMEDULLARY TROCHANTERIC FIXATION NAIL HIP Left 09/14/2021 Performed by Joshua Ramos MD at [place] [facility] SELECTIVE LASER TRABECULOPLASTY Right 02/24/2019 SLT [...] PA-C 07/21/23 1156 documented in this encounter [facility] 07-01-2023 Telephone encounter Note PC from Hanny at [facility] [place] received Rx for Baclofen 20mg, is questioning if you want her started off with 10mg and then go up? Her call back is [phone]. Thank you! [facility] 07-01-2023 Miscellaneous Notes [facility], is questioning if you want her started off with 10mg and then go up? Her call back is [phone]. Thank you! documented in this encounter [facility] 07-01-2023 History of Presen t illness Narrative [...] HISTORY: Past Medical History: Diagnosis Date Depression ([facility]) Endometrial cancer ([facility]) 2004 History of being hospitalized 08/2022 [facility] History of being hospitalized 04/2022 [facility] x14 days History of psychiatric hospitalization [facility] 06/2022 and 04/2022 Nontoxic multinodular goiter ([facility]/HCC) Osteoporosis ([facility]) Parathyroid adenoma Parkinson's disease Spinal stenosis Thyroid nodule ([facility]) Vitamin D deficiency Social History Tobacco Use [...] FRACTURE SURGERY Left 09/14/2021 HYSTERECTOMY 2005 Total NE LASER SURGERY OF EYE Right 02/2019 TUBAL [...] follow-ups on file. documented in this encounter [facility] 09-11-2021 Note HISTORY: Multiple fa lls PROCEDURE: [...] signed by Kieran Caputo on 09/11/2021 1121 [facility] Nonprofit Fundraiser Evaluation note Diagnosis Secondary parkinsonism, unspecified secondary Parkinsonism type (CMS/HCC)- Primary Dystonia Abnormal involuntary movements Muscle cramping documented in this encounter [facility] HealthcareEvaluation note* Diagnosis Lumbar spondylosis- Primary Lumbosacral spondylosis without myelopathy Bilateral leg cramps [facility] Diagnosis Lumbar spondylosis Lumbosacral spondylosis without myelopathy Bilateral leg cramps [facility] filed[facility]ed in this encounter [facility]Not on filedocumented in this encounter [facility]Not on filedocumented in this encounter [facility] SystemReason for referral (narrative)* Consultation (Routine) - Pending Review Specialty Diagnoses / Procedures Referred By Navdeep hoskins Referred To Contact Pain Medicine Diagnoses Secondary parkinsonism, unspecified secondary Parkinsonism type (CMS/HCC) Dystonia Muscle cramping Procedures NE OFFICE/OUTPATIENT [facility] 60 MINUTES Saira Proctor NP [address] [place] [address] Unallocated, [facility] [place] [address] Referral ID Status Reason Start Date Expiration Date Visits Requested Visits Authorized [id number] Pending Review Specialty Services Required 07/01/2023 12/28/2023 1 1 [facility] Summary Purpose Family History No Family History Records FoundNo Family History Records FoundNo Family History Records FoundNo Family History Records FoundNo Family History Records FoundNo Family History Records Found Advance Directives No Advanced Directives Records FoundDocuments on File Type Date Recorded Patient Paunch Trimmer Expl anation Living Will 09/23/2021 7:47 AM Durable Power of Check Airman 09/23/2021 7:47 AM Latest Code Status on File Code Status Date Activated Date Inactivated Comments Full Code 07/08/2022 9:19 PM 07/14/2022 5:18 PM Code Status History Code Status Date Activated Date Inactivated Comments Full Code 09/13/2021 6:49 PM 09/16/2021 8:13 PM Documents on File Type Date Recorded Patient Paunch Trimmer Expl anation Living Will 09/23/2021 7:47 AM Durable Power of Check Airman 09/23/2021 7:47 AM Latest Code Status on [...] leg cramps Eve Salas, PATricia [address] [place] [address] Referral ID Status Reason Start Date Expiration Date V isits Requested Visits Authorized [id number] Pending Review 1 1 Additional Source Comments INFORMATION SOURCE (unrecogn ized section and content) DATE CREATED AUTHOR 11/10/2017 [facility] DATE CREATED AUTHOR AUTHOR'S ORGANIZ ATION 02/16/2022 [facility] dical Specialist DATE CREATED AUTHOR AUTHOR'S ORGANIZ ATION 08/31/2022 [facility] DATE CREATED AUTHOR AUTHOR'S ORGANIZ ATION 08/11/2023 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 Relationship Specialty Start Date End Date Shea Vogel MD [address] [place] [address] PCP - General Family Medicine 10/05/22 Saira Proctor NP [address] [place] [address] PCP - ACO Reach 10/08/22 Saira Proctor LAW RESEARCHER [address] [place] [address] Nurse Practitioner Family Medicine 10/05/22 Metal Wire Coating Operator Relationship Specialty Start Date End Date Shea Vogel MD [address] [place] [address] PCP - General Family Medicine 10/05/22 Saira Proctor NP [address] [place] [address] PCP - ACO Reach 10/08/22 Saira Proctor NP [address] [place] [address] Nurse Practitioner Family Medicine 10/05/22 Metal Wire Coating Operator Relationship Specialty Start Date End Date Shea Vogel MD [address] [place] [address] PCP - General Family Medicine 10/05/22 Saira Proctor NP [address] [place] [address] PCP - ACO Reach 10/08/22 Saira Proctor NP [address] [place] [address] Nurse Practitioner Family Medicine 10/05/22 Metal Wire Coating Operator Relationship Specialty Start Date End Date Shea Vogel MD [address] [facility] [place] [address] PCP - General [facility] 07/08/22 Metal Wire Coating Operator Relationship Specialty Start Date End Date Shea Vogel MD [address] [facility] [place] [address] PCP - General [facility] 07/08/22 Metal Wire Coating Operator Relationship Specialty Start Date End Date Shea Vogel MD [address] [facility] [place], [place] [id number] PCP - General [facility] 07/08/22 Reason for Visit (unrecogniz ed section [...] BE BASED ON THE PRIMARY CLINICAL RECORDS. [facility]. provides no warranty or guarantee of the accuracy or completeness of information in this document.
[2023-10-03 13:25] LABS: Magnesium 1.9 mg/dL (1.8-2.4); Thyroid Stimulating Hormone 1.169 uIU/mL (0.358-3.740)
[2023-10-03] MEDS: 0.9 % SODIUM CHLORIDE 250 ML 10 ML IV (14:29)
[2023-10-03] MEDS: POTASSIUM CHLORIDE 40 MEQ in 0.9 % SODIUM CHLORIDE 250 ML 67.5 MEQ IV (17:42)
[2023-10-03] MEDS: POTASSIUM CHLORIDE 10 MEQ ER TABLET 20 MEQ PO (21:09)
[2023-10-03] MEDS: ACETAMINOPHEN 500 MG TABLET 1000 MG PO (21:09)
[2023-10-03 23:45] LABS: Bilirubin Urine SMALL (NEGATIVE); Blood Urine NEGATIVE (NEGATIVE); Clarity Urine CLEAR (CLEAR); Color Urine YELLOW (YELLOW); Glucose Urine UA NEGATIVE (NEGATIVE); Ketones Urine >=80 mg/dL (NEGATIVE); Leukocyte Esterase Urine NEGATIVE (NEGATIVE); Nitrite Urine NEGATIVE (NEGATIVE); Protein Urine TRACE mg/dL (NEG/TRACE); Specific Gravity Urine 1.025 (1.005-1.025); pH Urine 6.5 (5.0-9.0)
--- NOTE | 2023-10-03 23:50 | PC.NURSE ---
Patient straight cathed and urine sample obtained due to physicians order for U/A. Sample collected by sterile technique and sent to lab.
[2023-10-03 23:51] LABS: Bacteria Urine NONE SEEN #/HPF (NONE SEEN); Cast Seen? NONE SEEN #/LPF (NONE SEEN); Crystals Seen? None Seen #/HPF (None Seen); Mucus Urine NONE SEEN (NONE SEEN); RBC Urine 0-2 #/HPF (0-2); Squamous Epithelial Cell Urine FEW #/LPF (NONE/RARE); Urine Culture Indicated ALREADY ORDERED; WBC Urine 0-2 #/HPF (NONE SEEN)
[2023-10-04] VITALS (8 sets, daily range): BP systolic 110–142; BP diastolic 68–83; PULSE 93–105; TEMP 36.4–37.4; O2SAT 93–933
[2023-10-04 04:30] LABS: Basophils Percent Auto 0.3 % (0.2-2.0); Hematocrit 35.8 % (36.0-48.0); Hemoglobin 11.5 g/dL (12.0-16.0); Immature Granulocytes Abs Auto 0.02 10^3/uL (0.00-0.03); Immature Granulocytes Pct Auto 0.3 % (0.0-0.5); Lymphocytes Absolute Auto 0.4 10^3/uL (1.2-3.8); Lymphocytes Percent Auto 5.2 % (20.5-60.0); Mean Corpuscular HGB Conc 32.1 g/dL (29.9-35.2); Mean Corpuscular Volume 90.4 fL (81.0-99.0); Mean Platelet Volume 8.9 fL (9.5-13.5); Monocytes Absolute Auto 0.5 10^3/uL (0.3-0.8); Monocytes Percent Auto 6.7 % (1.7-12.0); Neutrophils Absolute Auto 6.8 10^3/uL (1.4-6.5); Neutrophils Percent Auto 87.5 % (43.0-75.0); Platelet Count 205 10^3/uL (150-450); Red Blood Count 3.96 10^6/uL (4.20-5.40); Red Cell Distribution Width 13.5 % (11.0-15.0); White Blood Count 7.8 10^3/uL (4.0-11.0)
[2023-10-04 04:45] LABS: Alanine Aminotransferase 13 U/L (14-59); Albumin Globulin Ratio 1.1; Albumin Level 3.1 g/dL (3.4-5.0); Alkaline Phosphatase 82 U/L (46-116); Anion Gap 15.6; Aspartate Amino Transferase 11 U/L (15-37); BUN Creatinine Ratio 17.9; Bilirubin Total 0.6 mg/dL (0.2-1.0); Carbon Dioxide 25.8 mmol/L (21.0-32.0); Chloride 105 mmol/L (98-107); Estimated GFR (African America >60 (>=60); Estimated GFR (Non-African Ame >60 (>=60); Globulin 2.9 g/dL; Glucose 106 mg/dL (74-106); Potassium 4.4 mmol/L (3.5-5.1); Sodium 142 mmol/L (136-145)
[2023-10-04] MEDS: ACETAMINOPHEN 500 MG TABLET 1000 MG PO ×2 (06:17→15:02)
--- NOTE | 2023-10-04 08:51 | P.HP_ITS ---
HPI H&P: HPI History of Present Illness Chief complaint: FALL SCARAL FRACTURE Narrative: Patient is a resident at an assisted living facility, had a fall. Denies syncope, denies chest pain, denies palpitations. Just a trip and fall. In ER patient was evaluated secondary to pain and found to have a nondisplaced sacral fracture. Patient admitted for pain control When I saw patient up on the medical surgical floor, she was sitting up at bedside with physical therapy assessing patient. Other than pain, patient denied any other complaints. No shortness of breath, no chest pain. Opioid HPI Opioid Management Most Recent Opioid Data: Last Pain Scale 0 10/04/23 07:33 Last Pain Assessment 10/04/23 07:00 Last MAR Pain Assessment 10/04/23 07:33 Last ORT Total Score 1 10/03/23 13:14 Last ORT Risk Category Low Risk 10/03/23 13:14 Review of Systems ROS Status of ROS 10 or more systems reviewed and unremark able except as noted in history and below [facility] Medical History (Updated 10/03/23 @ 12:37 by Cindy Ornelas MD) Osteoporosis ?M81.0 - Age-related osteoporosis without current pathological fracture (ICD- 10) Glaucoma ?H40.9 - Unspecified glaucoma (ICD-10) Depression with anxiety ?F41.8 - Other specified anxiety disorders (ICD-10) GERD (gastroesophageal reflux disease) ?K21.9 - Gastro-esophageal reflux disease without esophagitis (ICD-10) Difficulty in walking ?R26.2 - Difficulty in walking, not elsewhere classified (ICD-10) Parkinson disease ?G20.A1 - Parkinson's disease without dyskinesia, without mention of fluctuations (ICD-10) Abdominal pain ?R10.9 - Unspecified abdominal pain (ICD-10) Surgical History H/O: hysterectomy ?Z90.710 - Acquired absence of both cervix and uterus (ICD-10) Family History Brother Family history of cancer Grandmother Family history of hypertension Family history of stroke Social History Within the past year, how often did you have a drink containing alcohol: never Score interpretation: A score less than 3 is consistent with normal alcohol consumption. Smoking status: Never smoker Non-prescribed substance use: denies use Previous occupational history: retired Known occupational exposures/hazards: No Highest level of school completed/degree received: high school graduate Are you now , , , , never or living with a partner: In a typical week, how many times do you talk on the telephone with family, friends, or neighbors: twice per week How often do you get together with friends or relatives: never How often do you attend taoist or episcopal services: never Do you belong to any clubs or organizations such as taoist groups unions, [employer] or athletic groups, or school groups: yes Total score: 2 Score interpretation: A score of greater than or equal to 2 indicates the lowest level of social isolation. Little interest or pleasure in doing things: nearly every day Feeling down, depressed, or hopeless: not at all Feel stressed/tense/nervous/anxious/difficulty sleeping: not at all Life stressors: other Life stressor details: prefer not to say Do you think of yourself as: straight/heterosexual Gender Identity: female Meds Home Medications and Allergies Home Medications ?Medication ?Instructions ?Recorded ?Confirmed ?Type bisacodyl 10 mg rectal suppository 10 mg TN DAILY PRN constipation 01/27/23 10/03/23 History (Laxative (bisacodyl)) brimonidine 0.2 % eye drops 2 drp ophthalmic (eye) TID 01/27/23 10/03/23 History calcium carbonate (Calcium 500) 1,000 mg PO Q2H PRN dyspepsia 01/27/23 10/03/23 History melatonin 5 mg tablet 5 mg PO BEDTIME sleep 01/27/23 10/03/23 History omeprazole 40 mg capsule,delayed 40 mg PO .acb 01/27/23 10/03/23 History release sertraline 100 mg tablet 100 mg PO DAILY 01/27/23 10/03/23 History timolol maleate 0.5 % eye drops 1 drp ophthalmic (eye) QAM 01/27/23 10/03/23 History cholecalciferol (vitamin D3) 50 50 mcg PO DAILY 01/28/23 10/03/23 History mcg (2,000 unit) capsule loperamide 2 mg capsule 2 mg PO Q6H PRN loose stool 01/28/23 10/03/23 History (Anti-Diarrheal (loperamide)) acetaminophen 500 mg tablet 1,000 mg PO Q8H PRN fever or pain 09/07/23 10/03/23 History baclofen 10 mg tablet 10 mg PO Q8H 09/07/23 10/03/23 History carboxymethylcellulose sodium 1 % 2 drp ophthalmic (eye) TID 09/07/23 10/03/23 History eye liquid gel drops psyllium husk 3.4 gram/5.4 gram 1 tbsp PO DAILY 09/07/23 10/03/23 History oral powder (Metamucil) sertraline 50 mg tablet 50 mg PO DAILY 09/07/23 10/03/23 History carbidopa 25 mg-levodopa 100 mg 2 tab PO TID 30 days #180 tabs 09/09/23 10/03/23 Rx tablet carbidopa ER 25 mg-levodopa 100 mg 2 tab PO BID@0600,1400 30 days 09/09/23 10/03/23 Rx tablet,extended release #120 tabs calcium carbonate (Tums) 300 mg PO TID PRN dyspepsia 10/03/23 10/03/23 History carbidopa 25 mg-levodopa 100 mg 1 tab PO .QD@1800 10/03/23 10/03/23 History tablet (Sinemet) pregabalin 25 mg capsule (Lyrica) 25 mg PO BID 10/03/23 10/03/23 History rivastigmine 9.5 mg/24 hour 9.5 mg transdermal DAILY 10/03/23 10/03/23 History transdermal patch (Exelon Patch) Allergies Allergy/AdvReac Type Severity Reaction Status Date / Time bupropion [From Wellbutrin] Allergy Verified 09/07/23 11:44 Exam Constitutional Vital Signs, click to edit/add: Last Vital Signs Temp 99.3 F 10/04/23 03:40 Pulse 100 H 10/04/23 03:40 Resp 16 10/04/23 03:40 BP 129/76 10/04/23 03:40 Pulse Ox 94 L 10/04/23 03:40 O2 Del Method Room Air 10/04/23 03:40 Documenting provider has reviewed patient's vital signs: yes Common normals: no apparent distress (Flat affect secondary to Parkinson's) Chest Common normals: inspection of chest normal Respiratory Common normals: normal respiratory effort and no retractions Cardio Common normals: regular rate, regular rhythm and no murmurs GI Common normals: Normal to inspection, nondistended, normoactive bowel sounds present Extremity Common normals: no clubbing, cyanosis or edema Results Labs Labs: Short CBC 10/03/23 10/04/23 Range/Units 11:03 04:09 WBC 8.3 7.8 (4.0-11.0) 10^3/uL Hgb 12.8 11.5 L (12.0-16.0) g/dL Hct 40.5 35.8 L (36.0-48.0) % Plt Count 237 205 (150-450) 10^3/uL BMP 10/03/23 10/04/23 11:03 04:09 Sodium 141 142 Potassium 3.0 L 4.4 Chloride 99 105 Carbon Dioxide 27.0 25.8 BUN 12.0 12.0 Creatinine 0.62 0.67 Glucose 150 H 106 Calcium 9.2 9.0 Liver Function 10/03/23 10/04/23 Range/Units 11:03 04:09 Total Bilirubin 0.9 0.6 (0.2-1.0) mg/dL AST 14 L 11 L (15-37) U/L ALT 9 L 13 L (14-59) U/L Alkaline Phosphatase 100 82 (46-116) U/L Albumin 3.7 3.1 L (3.4-5.0) g/dL Urine 10/03/23 Range/Units 23:30 Urine Color Yellow (YELLOW) Urine Clarity Clear (CLEAR) Urine pH 6.5 (5.0-9.0) Ur Specific B[place] 1.025 (1.005-1.025) Urine Protein Trace (NEG/TRACE) mg/dL Urine Glucose (UA) Negative (NEGATIVE) mg/dL Assessment and Plan Assessment and Plan (1) Acute hypokalemia: (2) Fall: Qualifiers: Encounter type: initial encounter Qualified Code(s): W19.XXXA - Unspecified fall, initial encounter (3) Closed sacral fracture: Qualifiers: Encounter type: initial encounter Zone of sacrum fracture: unspecified portion of sacrum Qualified Code(s): S32.10XA - Unspecified fracture of sacrum, initial encounter for closed fracture (4) Dysphagia: (5) Protein calorie malnutrition: (6) Weakness: Plan Admission findings of sinus tachycardia, hypokalemia, mild hyperglycemia resulting in a fall with a nondisplaced sacral fracture. Since nondisplaced, no surgical intervention necessary. Will have physical therapy and Occupational Therapy work with patient today. She will need rehab. Pain control initially with Ultram. Parkinson's with dysphagia-have speech therapy evaluate patient, continue with Parkinson's medications. Hyperglycemia-this is likely secondary to nonfasting this is improved today. Hypokalemia-supplemented and is back to baseline normal. Iron deficiency anemia-monitor daily, down somewhat today. CODE STATUS-discussed with patient the options, patient would like to be DNR-cc-a Constipation-continue with home medications Insomnia-continue with home medications GERD-continue with home medications Depression-continue with home medications Admission status: Patient with sacral fracture, nondisplaced, no surgical intervention necessary, patient admitted to inpatient status for pain control and rehabilitation. Patient is an excellent rehabilitation candidate and will do well again back in her assisted living once recovered from her fracture. Medically necessary treatment will span 2 midnights. Inpatient status. Urinary Catheter Management Urinary Catheter Management Straight: Cath placed during this visit: yes, but has since been removed by the emma dueñas Insertion date: 10/03/23 Insertion time: 23:30 Removal date: 10/03/23 Removal time: 23:35
--- NOTE | 2023-10-04 09:27 | CM.NOTE ---
Rounds made with Dr. Gamboa, discussed with pt need for skilled placement at discharge for strengthening. Pt in agreement, Case Management or SW will discuss with pt about her choices for skilled facilities at discharge.
--- NOTE | 2023-10-04 09:33 | CM.NOTE ---
Important Message From Medicare discussed with pt, pt verbalizes understanding and signs paper. Original given to pt and copy placed on pt's chart.
--- NOTE | 2023-10-04 09:39 | CM.NOTE ---
Attempted to discuss with pt about discharging to skilled facility and gave pt a list with choices. Pt unsure at this time and would like us to reach out to her [id number].
--- NOTE | 2023-10-04 09:40 | SWNOTE1 ---
SW did call [facility] and confirmed patient is from [facility]. Physical therapy is recommending SNF for patient. Pt has intermittent confusion. Pt did give case management approval to speak with Hetal the sister in law.
[2023-10-04] MEDS: LACTOSE -REDUCED (ENSURE ORIGINAL 237 ML LIQUID) PO ×2 (09:46→22:09)
[2023-10-04] MEDS: CHOLECALCIFEROL (VITAMIN D3) 25 MCG/1,000 UNITS TABLET 50 MCG PO (09:47)
[2023-10-04] MEDS: POTASSIUM CHLORIDE 10 MEQ ER TABLET 20 MEQ PO ×2 (09:47→22:10)
--- NOTE | 2023-10-04 09:48 | SWNOTE1 ---
SOILA spoke to Hetal, pt's sister in law via phone. SOILA advised Hetal that rehab is recommended and pt wanted us to call her and see where she recommended. Pt is inpatient this time and medically needing to stay at this time. Hetal voiced they were happy with [facility] and there therapy team and if they have openings would like pt to return there. SOILA sent email to Kimmy and Cami in admissions at [facility].
[2023-10-04] MEDS: OMEPRAZOLE 40 MG CAPSULE.DR PO (09:52)
[2023-10-04] MEDS: SERTRALINE HCL 50 MG TABLET PO (09:52)
[2023-10-04] MEDS: SERTRALINE HCL 100 MG TABLET PO (09:53)
[2023-10-04] MEDS: PSYLLIUM SUGAR FREE 5.8 GM POWDER PACKET 5.79999999999999982 GM PO (09:56)
[2023-10-04] MEDS: TIMOLOL MALEATE 0.5% OP SOL 100 DROPS/5 ML BOTTLE 1 DROP OP (10:06)
[2023-10-04] MEDS: BACLOFEN 10 MG TABLET PO ×2 (10:08→17:10)
[2023-10-04] MEDS: CARBIDOPA/LEVODOPA CR 25-100 MG TABLET 2 TAB PO ×2 (10:08→15:02)
[2023-10-04] MEDS: CARBIDOPA/LEVODOPA 25 MG-100 MG TABLET 2 TAB PO ×3 (10:08→22:12)
[2023-10-04] MEDS: RIVASTIGMINE 4.6 MG 9.19999999999999929 MG TD (10:15)
[2023-10-04] MEDS: ARTIFICIAL TEARS 300 DROP/15 ML BOTTLE OP ×3 (10:15→22:11)
--- NOTE | 2023-10-04 10:28 | SWNOTE1 ---
Referral sent to [facility]. Referral included face sheet, ED note, H&P, provider notes, case management report, nursing notes, diagnostic imaging, med list, and PT notes.
[2023-10-04] MEDS: BRIMONIDINE TARTRATE 0.15 % OP SOL 100 DROP/5 ML BOTTLE OP ×3 (11:24→22:11)
--- NOTE | 2023-10-04 13:15 | SWNOTE1 ---
[facility] is able to accept when pt is medically stable for discharge. SW notified nursing, pt, and Hetal.
[2023-10-04] MEDS: CARBIDOPA/LEVODOPA 25 MG-100 MG TABLET 1 TAB PO (17:10)
[2023-10-04] MEDS: PREGABALIN 50 MG CAPSULE PO (22:10)
[2023-10-05] VITALS (7 sets, daily range): BP systolic 112–151; BP diastolic 64–82; PULSE 82–99; TEMP 36.3–36.6; O2SAT 93–99
--- NOTE | 2023-10-05 02:12 | PC.NURSE ---
tea color urine
[2023-10-05] MEDS: BACLOFEN 10 MG TABLET PO ×3 (03:15→18:13)
[2023-10-05] MEDS: TRAMADOL HCL 50 MG TABLET PO ×2 (04:19→21:18)
[2023-10-05 05:26] LABS: Basophils Percent Auto 0.2 % (0.2-2.0); Eosinophils Absolute Auto 0.1 10^3/uL (0.0-0.7); Eosinophils Percent Auto 1.2 % (0.9-7.0); Hematocrit 36.9 % (36.0-48.0); Hemoglobin 11.9 g/dL (12.0-16.0); Immature Granulocytes Abs Auto 0.02 10^3/uL (0.00-0.03); Immature Granulocytes Pct Auto 0.3 % (0.0-0.5); Lymphocytes Absolute Auto 0.4 10^3/uL (1.2-3.8); Lymphocytes Percent Auto 7.4 % (20.5-60.0); Mean Corpuscular HGB Conc 32.2 g/dL (29.9-35.2); Mean Corpuscular Hemoglobin 29.2 pg (26.7-34.0); Mean Corpuscular Volume 90.4 fL (81.0-99.0); Mean Platelet Volume 9.1 fL (9.5-13.5); Monocytes Absolute Auto 0.4 10^3/uL (0.3-0.8); Monocytes Percent Auto 7.4 % (1.7-12.0); Neutrophils Absolute Auto 4.9 10^3/uL (1.4-6.5); Neutrophils Percent Auto 83.5 % (43.0-75.0); Platelet Count 180 10^3/uL (150-450); Red Blood Count 4.08 10^6/uL (4.20-5.40); Red Cell Distribution Width 13.5 % (11.0-15.0); White Blood Count 5.8 10^3/uL (4.0-11.0)
[2023-10-05 05:43] LABS: Alanine Aminotransferase <6 U/L (14-59); Albumin Globulin Ratio 0.9; Albumin Level 2.9 g/dL (3.4-5.0); Alkaline Phosphatase 83 U/L (46-116); Aspartate Amino Transferase 8 U/L (15-37); BUN Creatinine Ratio 24.5; Bilirubin Total 0.6 mg/dL (0.2-1.0); Calcium 8.9 mg/dL (8.5-10.1); Carbon Dioxide 28.8 mmol/L (21.0-32.0); Chloride 102 mmol/L (98-107); Estimated GFR (African America >60 (>=60); Estimated GFR (Non-African Ame >60 (>=60); Globulin 3.1 g/dL; Glucose 124 mg/dL (74-106); Potassium 3.8 mmol/L (3.5-5.1); Sodium 136 mmol/L (136-145)
[2023-10-05] MEDS: ARTIFICIAL TEARS 300 DROP/15 ML BOTTLE OP ×3 (05:57→21:19)
[2023-10-05] MEDS: BRIMONIDINE TARTRATE 0.15 % OP SOL 100 DROP/5 ML BOTTLE OP ×3 (05:57→21:19)
[2023-10-05] MEDS: CARBIDOPA/LEVODOPA CR 25-100 MG TABLET 2 TAB PO ×2 (05:58→13:32)
[2023-10-05] MEDS: OMEPRAZOLE 40 MG CAPSULE.DR PO (05:58)
--- NOTE | 2023-10-05 09:13 | P.PN_ITS ---
Progress Note: Subjective Subjective Interval history: Pain fairly well-controlled. Did receive a dose of Ultram last night with effectiveness. Exam Constitutional Vital Signs, click to edit/add: Last Vital Signs Temp 97.4 F L 10/05/23 07:35 Pulse 99 H 10/05/23 07:35 Resp 16 10/05/23 07:35 BP 135/79 10/05/23 07:35 Pulse Ox 95 10/05/23 07:35 O2 Del Method Room Air 10/05/23 07:35 Documenting provider has reviewed patient's vital signs: yes Common normals: no apparent distress (Flat affect secondary to Parkinson's) Chest Common normals: inspection of chest normal Respiratory Common normals: normal respiratory effort and no retractions Cardio Common normals: regular rate, regular rhythm and no murmurs GI Common normals: Normal to inspection, nondistended, normoactive bowel sounds present Extremity Common normals: no clubbing, cyanosis or edema Progress Note: Objective Labs Labs: Short CBC 10/05/23 Range/Units 04:46 WBC 5.8 (4.0-11.0) 10^3/uL Hgb 11.9 L (12.0-16.0) g/dL Hct 36.9 (36.0-48.0) % Plt Count 180 (150-450) 10^3/uL BMP 10/05/23 04:46 Sodium 136 Potassium 3.8 Chloride 102 Carbon Dioxide 28.8 BUN 13.0 Creatinine 0.53 L Glucose 124 H Calcium 8.9 Liver Function 10/05/23 Range/Units 04:46 Total Bilirubin 0.6 (0.2-1.0) mg/dL AST 8 L (15-37) U/L ALT <6 L (14-59) U/L Alkaline Phosphatase 83 (46-116) U/L Albumin 2.9 L (3.4-5.0) g/dL Progress Note: A&P Assessment and Plan (1) Acute hypokalemia: (2) Fall: Qualifiers: Encounter type: initial encounter Qualified Code(s): W19.XXXA - Unspecified fall, initial encounter (3) Closed sacral fracture: Qualifiers: Encounter type: initial encounter Zone of sacrum fracture: unspecified portion of sacrum Qualified Code(s): S32.10XA - Unspecified fracture of sacrum, initial encounter for closed fracture (4) Dysphagia: (5) Protein calorie malnutrition: (6) Weakness: Plan Admission findings: sinus tachycardia, hypokalemia, mild hyperglycemia resulting in a fall with a nondisplaced sacral fracture. Since nondisplaced, no surgical intervention necessary. Continue with PT. Patient excellent rehabilitation candidate. Parkinson's with dysphagia-have speech therapy evaluate patient, continue with Parkinson's medications. And modified diet Hyperglycemia-this is likely secondary to nonfasting this is improved today.- Continue to monitor Hypokalemia-supplemented and is back to baseline normal.-Resolved Iron deficiency anemia-monitor daily, continue to monitor CODE STATUS-discussed with patient the options, patient would like to be DNR-cc-a Constipation-continue with home medications Insomnia-continue with home medications GERD-continue with home medications Depression-continue with home medications Admission status: Patient with sacral fracture, nondisplaced, no surgical intervention necessary, patient admitted to inpatient status for pain control and rehabilitation. Patient is an excellent rehabilitation candidate and will do well again back in her assisted living once recovered from her fracture. Medically necessary treatment will span 2 midnights. Maintain inpatient status. Urinary Catheter Management Urinary Catheter Management Straight: Cath placed during this visit: yes, but has since been removed by the nurse Insertion date: 10/03/23 Insertion time: 23:30 Removal date: 10/03/23 Removal time: 23:35
[2023-10-05] MEDS: PSYLLIUM SUGAR FREE 5.8 GM POWDER PACKET 5.79999999999999982 GM PO (09:46)
[2023-10-05] MEDS: RIVASTIGMINE 4.6 MG 9.19999999999999929 MG TD (09:46)
[2023-10-05] MEDS: METOPROLOL TARTRATE 25 MG TABLET PO ×2 (09:46→21:18)
[2023-10-05] MEDS: SERTRALINE HCL 50 MG TABLET PO (09:46)
[2023-10-05] MEDS: CHOLECALCIFEROL (VITAMIN D3) 25 MCG/1,000 UNITS TABLET 50 MCG PO (09:46)
[2023-10-05] MEDS: CARBIDOPA/LEVODOPA 25 MG-100 MG TABLET 2 TAB PO ×3 (09:46→21:18)
[2023-10-05] MEDS: SERTRALINE HCL 100 MG TABLET PO (09:46)
[2023-10-05] MEDS: POTASSIUM CHLORIDE 10 MEQ ER TABLET 20 MEQ PO ×2 (09:46→21:18)
[2023-10-05] MEDS: LACTOSE -REDUCED (ENSURE ORIGINAL 237 ML LIQUID) PO ×2 (09:47→21:18)
[2023-10-05] MEDS: TIMOLOL MALEATE 0.5% OP SOL 100 DROPS/5 ML BOTTLE 1 DROP OP (09:47)
--- NOTE | 2023-10-05 10:12 | PT.DAILY ---
Physical Therapy Daily Note PT Daily Note/Assess Start: 10/05/23 10:05 Freq: Status: Active Protocol: Document 10/05/23 10:05 SCOTT (Rec: 10/05/23 10:12 SCOTT [id number]) Physical Therapy Daily Note/Assessment Time In/Time Out Time In 09:05 Time Out 09:34 Pain In Pain N/A Pain Out Pain N/A Subjective Subjective Pt supine with HOB elevated upon arrival. Agreeable to PT. Reports being medicated this morning. Therapeutic Exercise Time Therapeutic Exercise Minutes (minutes) 1 Therapeutic Exercise Units 8 Therapeutic Exercise Treatment Therapeutic Exercise Treatment Seated unsupported At EOB. Upper body BIG movements including bilat shoulder abduction, lateral side stretches, horizontal abd and adduction, shoulder flexion 10x ea. Bilat truck rotation as tolerated. Seated LE AP, LAQ, marches, abd step outs and add squeezes 10x ea. Therapeutic Activity Time Therapeutic Activity Minutes (minutes) 15 Therapeutic Activity Units 1 Therapeutic Activity Treatment Bed Mobility Ability Standby Assistance Chair Transfer Ability Moderate Assist,2 Person Assist Therapeutic Activity Comments Supine>sit EOB SBA with increased time to complete. Performs 7x sit>stand to RW total throughout session CGA. When attempting gait training to RW pt is unable to advance L LE IND. Pt able to side step with R with manual assist to move L. Once close to chair pt is able to stand with SBA but requires ModA+2 to pivot safely to chair from EOB. Pt remains in BS chair with call light in reach, chair alarm activated and nursing present. Total Physical Therapy Time Total Therapy Minutes 16 Total Physical Therapy Units 9 Summary Daily Note Summary Improved bed mobility and sit> stand transfers but cont to have difficult initiating steps with L LE. Pt would benefit from SNF to regain strength to return to PLOF.
--- NOTE | 2023-10-05 10:22 | CM.NOTE ---
Rounds made with Dr. Gamboa, pt will discharge to [facility] for skilled therapy when medically stable.
--- NOTE | 2023-10-05 15:51 | SWNOTE1 ---
Updates sent to [facility] including progress note, vitals, PT and Speech therapy notes.
[2023-10-05] MEDS: CARBIDOPA/LEVODOPA 25 MG-100 MG TABLET 1 TAB PO (18:13)
[2023-10-05] MEDS: PREGABALIN 50 MG CAPSULE PO (21:18)
[2023-10-06] VITALS: BP 108/64; PULSE 73; TEMP 36.6; O2SAT 93
[2023-10-06 03:00] VITALS: BP 110/64; PULSE 79; TEMP 36.3; O2SAT 92
[2023-10-06] MEDS: BACLOFEN 10 MG TABLET PO (05:35)
[2023-10-06] MEDS: CARBIDOPA/LEVODOPA CR 25-100 MG TABLET 2 TAB PO (05:35)
[2023-10-06] MEDS: BRIMONIDINE TARTRATE 0.15 % OP SOL 100 DROP/5 ML BOTTLE OP (05:35)
[2023-10-06] MEDS: OMEPRAZOLE 40 MG CAPSULE.DR PO (05:35)
[2023-10-06] MEDS: ARTIFICIAL TEARS 300 DROP/15 ML BOTTLE OP (05:36)
[2023-10-06 07:26] VITALS: PULSE 92
[2023-10-06 07:36] VITALS: BP 114/69; PULSE 92; TEMP 36.7; O2SAT 93
--- NOTE | 2023-10-06 09:19 | P.DS_ITS ---
DS: Providers Provider Date of admission: 10/03/23 13:02 Primary care physician: ELLY SUNSHINE Consults: 10/03/23 Consult to Dietitian Routine Reason for consultation: malnutrition Has provider been notified: No 10/03/23 12:47 Consult to Pharmacy Routine Consulting Provider: Reason for consultation: Please [place] me when Med Rec is Updated Has provider been notified: No Occupational Therapy Eval and Treat Routine Reason for consultation: Only if needed for Rehab Has provider been notified: No Physical Therapy Eval and Treat Routine Reason for consultation: Eval and Treat Has provider been notified: No 10/04/23 08:48 Speech Therapy Eval and Treat Routine Reason for consultation: parkinsons dysphagia Has provider been notified: No 10/04/23 08:53 Consult to Pharmacy Routine Consulting Provider: Reason for consultation: Please make sure she gets all her AM home meds this morning DS: Diagnosis Discharge Diagnosis (1) Acute hypokalemia: (2) Fall: Qualifiers: Encounter type: initial encounter Qualified Code(s): W19.XXXA - Unspecified fall, initial encounter (3) Closed sacral fracture: Qualifiers: Encounter type: initial encounter Zone of sacrum fracture: unspecified portion of sacrum Qualified Code(s): S32.10XA - Unspecified fracture of sacrum, initial encounter for closed fracture (4) Dysphagia: (5) Protein calorie malnutrition: (6) Weakness: Plan Admission findings: sinus tachycardia, hypokalemia, mild hyperglycemia resulting in a fall with a nondisplaced sacral fracture. Pain Stable At d/c Parkinson's with dysphagia-have speech therapy evaluate patient, continue with Parkinson's medications. - stable at dc Hyperglycemia-this is likely secondary to nonfasting this is improved today. stable Hypokalemia-supplemented and is back to baseline normal.-Resolved Iron deficiency anemia-monitor daily, continue to monitor CODE STATUS-discussed with patient the options, patient would like to be DNR-cc-a Constipation-continue with home medications Insomnia-continue with home medications GERD-continue with home medications Depression-continue with home medications Admission status: Patient with sacral fracture, nondisplaced, no surgical intervention necessary, patient admitted to inpatient status for pain control and rehabilitation. Patient is an excellent rehabilitation candidate and will do well again back in her assisted living once recovered from her fracture. Medically necessary treatment will span 2 midnights. Maintained inpatient status. DS: Summary Hospital Course Hospital Course: Patient presents to the emergency room after a fall. With her fall she did not have any chest pain, no syncope, no shortness of breath, just a fall. In ER found to have an acute nondisplaced sacral fracture. She was admitted for management from a pain standpoint. She is taking as needed Ultram with improvement in her pain. Physical therapy is work with her. She is not safe for discharge to home. She will need some gait training. Otherwise she has b een medically stable. She has her Parkinson's medications she did have a recommendation and for some outpatient speech therapy. She feels like she is swallowing fine with her foods. So at this point she is an excellent rehabilitation candidate will refer her to rehab for her nondisplaced sacral fracture. Medications see list. Follow-up with PCP at discharge from rehab. Time Spent with Patient Time attestation: Total time spent providing and/or coordinating discharge services: Time spent: greater than 30 minutes Exam Constitutional Vital Signs, click to edit/add: Last Vital Signs Temp 98.1 F 10/06/23 07:36 Pulse 92 H 10/06/23 07:36 Resp 20 10/06/23 07:36 BP 114/69 10/06/23 07:36 Pulse Ox 93 L 10/06/23 07:36 O2 Del Method Room Air 10/06/23 07:36 Documenting provider has reviewed patient's vital signs: yes Common normals: no apparent distress (Flat affect secondary to Parkinson's) Chest Common normals: inspection of chest normal Respiratory Common normals: normal respiratory effort and no retractions Cardio Common normals: regular rate, regular rhythm and no murmurs GI Common normals: Normal to inspection, nondistended, normoactive bowel sounds present Extremity Common normals: no clubbing, cyanosis or edema Discharge Plan Discharge Disposition: er [facility] Discharge Medications: New pregabalin 50 mg Capsule 50 mg PO QHS Qty: 30 5RF tramadol 50 mg tablet 50 mg PO Q6H PRN (Reason: pain) 30 Days Qty: 120 0RF Continued baclofen 10 mg tablet 10 mg PO Q8H Patient Comments: 0600,1400,2200 sertraline 50 mg tablet 50 mg PO DAILY acetaminophen 500 mg tablet 1,000 mg PO Q8H PRN (Reason: fever or pain) Metamucil 3.4 gram/5.4 gram powder 1 tbsp PO DAILY Rx Instructions: mix into at least 8 oz of water or juice before administering carboxymethylcellulose sodium 1 % drops, liquid gel 2 drp ophthalmic (eye) TID carbidopa-levodopa 25-100 mg Tablet Extended Release 2 tab PO BID@0600,1400 30 Days Qty: 120 0RF carbidopa-levodopa 25-100 mg tablet 2 tab PO TID 30 Days Qty: 180 0RF Rx Instructions: Take at 0600, 1000, and 1400. Avoid waking pt to give doses sertraline 100 mg tablet 100 mg PO DAILY omeprazole 40 mg capsule,delayed release(DR/EC) 40 mg PO .acb brimonidine 0.2 % drops 2 drp OPHTHALMIC (EYE) TID timolol maleate 0.5 % drops 1 drp OPHTHALMIC (EYE) QAM melatonin 5 mg tablet 5 mg PO BEDTIME bisacodyl [Laxative (bisacodyl)] 10 mg suppository 10 mg OR DAILY PRN (Reason: constipation) calcium carbonate [Calcium 500] 500 mg calcium (1,250 mg) tablet,chewable 1,000 mg PO Q2H PRN (Reason: dyspepsia) loperamide [Anti-Diarrheal (loperamide)] 2 mg capsule 2 mg PO Q6H PRN (Reason: loose stool) cholecalciferol (vitamin D3) 50 mcg (2,000 unit) capsule 50 mcg PO DAILY carbidopa-levodopa [Sinemet] 25-100 mg tablet 1 tab PO .QD@1800 rivastigmine [Exelon Patch] 9.5 mg/24 hour patch 24 hour 9.5 mg transdermal DAILY pregabalin [Lyrica] 25 mg capsule 25 mg PO BID Tums 300 mg (750 mg) tablet,chewable 300 mg PO TID PRN (Reason: dyspepsia) Print Language: [place] Real Time Analyst/Revenue Settlements Administrator Instructions: Discharge to [facility] skilled Forms: Portal Instructions
--- NOTE | 2023-10-06 09:40 | CM.NOTE ---
Rounds made with Dr. Gamboa. Plan for discharge today to [facility].
--- NOTE | 2023-10-06 10:04 | SWNOTE1 ---
Pt is ready for discharge today. SOILA called and set up trips. Pt's sister in law had appointments today and was not able to transport. Trips is set for 11:00am. SOILA let nursing and [facility] know. SOILA left message for sister in law, Hetal, and notified her of time. SOILA faxed over dc med rec to [facility] and put all paperwork in packet to go with pt. SOILA completed HENS online. Pt is going skilled to [facility].
[2023-10-06] MEDS: RIVASTIGMINE 4.6 MG 9.19999999999999929 MG TD (10:07)
[2023-10-06] MEDS: PSYLLIUM SUGAR FREE 5.8 GM POWDER PACKET 5.79999999999999982 GM PO (10:07)
[2023-10-06] MEDS: METOPROLOL TARTRATE 25 MG TABLET PO (10:07)
[2023-10-06] MEDS: LACTOSE -REDUCED (ENSURE ORIGINAL 237 ML LIQUID) PO (10:08)
[2023-10-06] MEDS: CHOLECALCIFEROL (VITAMIN D3) 25 MCG/1,000 UNITS TABLET 50 MCG PO (10:08)
[2023-10-06] MEDS: CARBIDOPA/LEVODOPA 25 MG-100 MG TABLET 2 TAB PO (10:09)
[2023-10-06] MEDS: POTASSIUM CHLORIDE 10 MEQ ER TABLET 20 MEQ PO (10:09)
[2023-10-06] MEDS: SERTRALINE HCL 100 MG TABLET PO (10:10)
[2023-10-06] MEDS: SERTRALINE HCL 50 MG TABLET PO (10:10)
[2023-10-06] MEDS: TIMOLOL MALEATE 0.5% OP SOL 100 DROPS/5 ML BOTTLE 1 DROP OP (10:11)
--- NOTE | 2023-10-06 10:22 | PT.DAILY ---
Physical Therapy Daily Note PT Daily Note/Assess Start: 10/05/23 10:05 Freq: Status: Active Protocol: Document 10/06/23 10:17 SCOTT (Rec: 10/06/23 10:21 SCOTT [id number]) Physical Therapy Daily Note/Assessment Time In/Time Out Time In 09:28 Time Out 09:58 Pain In Pain N/A Pain Out Pain N/A Subjective Subjective Supine upon arrival. Agrees to PT. Therapeutic Exercise Time Therapeutic Exercise Minutes (minutes) 10 Therapeutic Exercise Units 1 Therapeutic Exercise Treatment Therapeutic Exercise Treatment Seated unsupported At EOB. Upper body BIG movements including bilat shoulder abduction, lateral side stretches, horizontal abd and adduction, shoulder flexion 10x ea. Bilat truck rotation as tolerated. Seated LE AP, LAQ, marches, abd step outs and add squeezes 10x ea. After standing attempts pt is manually stretched, HS, DF/PF, and knee to chest 5x ea LE. Therapeutic Activity Time Therapeutic Activity Minutes (minutes) 15 Therapeutic Activity Units 1 Therapeutic Activity Treatment Bed Mobility Ability Standby Assistance Chair Transfer Ability Moderate Assist,2 Person Assist Therapeutic Activity Comments Supine>sit EOB SBA with increased time to complete. Performs 3x sit>stand to RW total throughout session CGA. When attempting gait training to RW pt is unable to advance L LE IND. Pt takes seated rest break while I manually stretch her bilat LE's at EOB. Sit>stand again and pt able to side step with R with manual assist to move L. Once close to chair pt is able to stand with SBA but requires ModA+2 to pivot safely to chair from EOB. Pt remains in BS chair with call light in reach, chair alarm activated. Total Physical Therapy Time Total Therapy Minutes 25 Total Physical Therapy Units 2 Summary Daily Note Summary Fair tolerance to session. Responded well to manual stretches prior to side stepping today but still unable to fully advance L LE IND.
[2023-10-06 10:54] VITALS: O2SAT 95
== END 2023-10-06 11:13 | DRG 551 ==
LOC: ER 12:37 → MS 13:04
PROVIDERS: Admitting Provider Family Medicine; Emergency Provider Emergency Medicine; PCP Family Medicine; Visit Provider Family Medicine
DX: S32.10XA Unspecified fracture of sacrum, initial encounter for closed fracture (principal); E43 Unspecified severe protein-calorie malnutrition; Z68.1 Body mass index [BMI] 19.9 or less, adult; G20.A1 Parkinson's disease without dyskinesia, without mention of fluctuations; M81.0 Age-related osteoporosis without current pathological fracture; K21.9 Gastro-esophageal reflux disease without esophagitis; F41.8 Other specified anxiety disorders; Z79.899 Other long term (current) drug therapy; H40.9 Unspecified glaucoma; Z90.710 Acquired absence of both cervix and uterus; E87.6 Hypokalemia; W01.0XXA Fall on same level from slipping, tripping and stumbling without subsequent striking against object, initial encounter; Z82.3 Family history of stroke; Z82.49 Family history of ischemic heart disease and other diseases of the circulatory system; Z80.9 Family history of malignant neoplasm, unspecified; R13.10 Dysphagia, unspecified; R53.1 Weakness; R73.9 Hyperglycemia, unspecified; D50.9 Iron deficiency anemia, unspecified; Z66 Do not resuscitate; K59.00 Constipation, unspecified; G47.00 Insomnia, unspecified
CPT/HCPCS: 36410; 36415; 36592; 70450; 72125; 72192; 80053; 81001; 83735; 84443; 85025; 86850; 86900; 86901; 87086; 92507; 92526; 92610; 94667; 94668; 94761; 96365; 96366; 96375; 97110; 97161; 97165; 97530; 99285; J3480

== ENCOUNTER 2024-01-21 14:09 | Emergency (ER) | payer MEDICARE, OTHER, SELFPAY ==
[2024-01-21 14:22] VITALS: BP 126/85; PULSE 96; TEMP 36.7; O2SAT 98; BMI 16.6
--- NOTE | 2024-01-21 14:31 | CT_ITS ---
[address] [address] Patient Name: ARMANDO MÁRQUEZ MRN: [id number] date: 1955 Sex: F Assigned Patient Location: ER Current Patient Location: ER Accession/Order Number: [id number] Exam Date: 01/21/2024 15:25 Report Date: 01/21/2024 16:10 At the request of: ILYA GUTIERREZ Procedure: CT abdomen pelvis w con EXAM: CT abdomen pelvis w con HISTORY: Vomiting and diarrhea COMPARISON: 01/29/2023 TECHNIQUE: CT of abdomen and pelvis with contrast. Additional images of the pelvis were obtained in delayed phase of contrast. Dose reduction techniques were achieved by using automated exposure control and/or adjustment of mA and/or kV according to patient size and/or use of iterative reconstruction technique. FINDINGS: TUBES AND IMPLANTS: Left femoral fixation hardware. LOWER CHEST: Mild cardiomegaly ABDOMEN and PELVIS ABDOMINAL WALL AND SOFT TISSUES: Unremarkable. BONES: Multilevel degenerative changes of the spine. No suspicious lesions. T12 compression deformity with kyphoplasty changes. Osteopenia ARTERIES: Mild aortoiliac atherosclerosis without aneurysm VEINS: Unremarkable. LYMPH NODES: Unremarkable. PERITONEUM/ RETROPERITONEUM: Unremarkable. BOWEL: Mild diffuse wall thickening of the colon. Moderate diverticulosis . No obstruction APPENDIX: Not identified. LIVER: No suspicious lesions. Scattered subcentimeter hypodensities are too small to characterize but are suggestive of cysts. GALLBLADDER: Unremarkable. BILE DUCTS: Not dilated SPLEEN: Unremarkable. PANCREAS: Unremarkable. ADRENALS: Unremarkable. KIDNEYS/ URETERS: Unremarkable. REPRODUCTIVE ORGANS: Uterus is surgically absent. Bilateral ovaries are not clearly identified. URINARY BLADDER: Unremarkable. CT/CT abdomen pelvis w con IMPRESSION: Mild diffuse wall thickening of the colon suggesting infectious or inflammatory colitis. Moderate diverticulosis. Electronically authenticated by: CHRISTINE SCHOFIELD Date: 01/21/2024 16:10
--- NOTE | 2024-01-21 14:34 | ED_ITS ---
HPI - Abdominal Pain General Chief Complaint: Abdominal Pain Stated Complaint: VOMITING, DIARRHEA Time Seen by Provider: 01/21/24 14:21 Source: patient and family Mode of arrival: Wheelchair Limitations: no limitations History of Present Illness HPI narrative: Patient is a 68-year-old female with a history of Parkinson's who presents to the emergency department for the evaluation of vomiting and diarrhea for the last 6 days. She states she does have some abdominal discomfort when she is dry heaving but she has no continued abdominal pain and has no discomfort at this time. She has not noted any blood in her stool. She states she had a colonoscopy many years ago. Family member at bedside states that she does have issues with chronic diarrhea but has no diagnosis of IBS, Crohn's, ulcerative colitis or diverticulitis. She has had a previous hysterectomy and is unaware of any other abdominal surgeries. She has had no fevers or upper respiratory symptoms. She reports decreased urine output but denies any dysuria or hematuria. She uses depends for her bowel and bladder functioning. Related Data Home Medications ?Medication ?Instructions ?Recorded ?Confirmed bisacodyl 10 mg rectal suppository 10 mg FL DAILY PRN constipation 01/27/23 10/03/23 (Laxative (bisacodyl)) brimonidine 0.2 % eye drops 2 drp ophthalmic (eye) TID 01/27/23 10/03/23 calcium carbonate (Calcium 500) 1,000 mg PO Q2H PRN dyspepsia 01/27/23 10/03/23 melatonin 5 mg tablet 5 mg PO BEDTIME sleep 01/27/23 10/03/23 omeprazole 40 mg capsule,delayed 40 mg PO .acb 01/27/23 10/03/23 release sertraline 100 mg tablet 100 mg PO DAILY 01/27/23 10/03/23 timolol maleate 0.5 % eye drops 1 drp ophthalmic (eye) QAM 01/27/23 10/03/23 cholecalciferol (vitamin D3) 50 50 mcg PO DAILY 01/28/23 10/03/23 mcg (2,000 unit) capsule loperamide 2 mg capsule 2 mg PO Q6H PRN loose stool 01/28/23 10/03/23 (Anti-Diarrheal (loperamide)) acetaminophen 500 mg tablet 1,000 mg PO Q8H PRN fever or pain 09/07/23 10/03/23 baclofen 10 mg tablet 10 mg PO Q8H 09/07/23 10/03/23 carboxymethylcellulose sodium 1 % 2 drp ophthalmic (eye) TID 09/07/23 10/03/23 eye liquid gel drops psyllium husk 3.4 gram/5.4 gram 1 tbsp PO DAILY 09/07/23 10/03/23 oral powder (Metamucil) sertraline 50 mg tablet 50 mg PO DAILY 09/07/23 10/03/23 calcium carbonate (Tums) 300 mg PO TID PRN dyspepsia 10/03/23 10/03/23 carbidopa 25 mg-levodopa 100 mg 1 tab PO .QD@1800 10/03/23 10/03/23 tablet (Sinemet) pregabalin 25 mg capsule (Lyrica) 25 mg PO BID 10/03/23 10/03/23 rivastigmine 9.5 mg/24 hour 9.5 mg transdermal DAILY 10/03/23 10/03/23 transdermal patch (Exelon Patch) Previous Rx's ?Medication ?Instructions ?Recorded carbidopa 25 mg-levodopa 100 mg 2 tab PO TID 30 days #180 tabs 09/09/23 tablet carbidopa ER 25 mg-levodopa 100 mg 2 tab PO BID@0600,1400 30 days 09/09/23 tablet,extended release #120 tabs pregabalin 50 mg capsule 50 mg PO QHS #30 caps 10/06/23 tramadol 50 mg tablet 50 mg PO Q6H PRN pain 30 days #120 10/06/23 tabs ciprofloxacin HCl 500 mg tablet 500 mg PO Q12H #14 tabs 01/21/24 hyoscyamine sulfate 0.125 mg 0.125 mg PO Q6H PRN abdominal pain 01/21/24 tablet (Levsin) #12 tabs metronidazole 500 mg tablet 500 mg PO Q12H 7 days #14 tabs 01/21/24 ondansetron 4 mg disintegrating 4 mg PO Q6H PRN nausea and 01/21/24 tablet vomiting #12 tabs Allergies Allergy/AdvReac Type Severity Reaction Status Date / Time bupropion [From Wellbutrin] Allergy Unknown Verified 01/21/24 14:22 Review of Systems ROS Constitutional Denies: fever or chills Ears, nose, mouth, and throat Denies: throat pain or nasal congestion Cardiovascular Denies: chest pain Respiratory Denies: shortness of breath Gastrointestinal Reports: nausea, vomiting and diarrhea; Denies: abdominal pain Musculoskeletal Denies: back pain or neck pain Integumentary/Breast Denies: rash Neurological Denies: numbness in extremities or weakness in extremities Hematologic/Lymphatic Denies: easy bruising or easy bleeding [facility] Medical History (Updated 01/21/24 @ 16:41 by SALLY Caldwell) Acute hypokalemia ?E87.6 - Hypokalemia (ICD-10) Fall ?W19.XXXA - Unspecified fall, initial encounter (ICD-10) Closed sacral fracture ?S32.10XA - Unspecified fracture of sacrum, initial encounter for closed fracture (ICD-10) Protein calorie malnutrition ?E46 - Unspecified protein-calorie malnutrition (ICD-10) Weakness ?R53.1 - Weakness (ICD-10) Osteoporosis ?M81.0 - Age-related osteoporosis without current pathological fracture (ICD- 10) Glaucoma ?H40.9 - Unspecified glaucoma (ICD-10) Depression with anxiety ?F41.8 - Other specified anxiety disorders (ICD-10) GERD (gastroesophageal reflux disease) ?K21.9 - Gastro-esophageal reflux disease without esophagitis (ICD-10) Difficulty in walking ?R26.2 - Difficulty in walking, not elsewhere classified (ICD-10) Parkinson disease ?G20.A1 - Parkinson's disease without dyskinesia, without mention of fluctuations (ICD-10) Abdominal pain ?R10.9 - Unspecified abdominal pain (ICD-10) Surgical History H/O: hysterectomy ?Z90.710 - Acquired absence of both cervix and uterus (ICD-10) Family History Brother Family history of cancer Grandmother Family history of hypertension Family history of stroke Social History Within the past year, how often did you have a drink containing alcohol: never Score interpretation: A score less than 3 is consistent with normal alcohol consumption. Smoking status: Never smoker Non-prescribed substance use: denies use Previous occupational history: retired Known occupational exposures/hazards: No Highest level of school completed/degree received: high school graduate Are you now , , , , never or living with a partner: In a typical week, how many times do you talk on the telephone with family, friends, or neighbors: twice per week How often do you get together with friends or relatives: never How often do you attend moravian or gnosticist services: never Do you belong to any clubs or organizations such as moravian groups unions, [employer] or athletic groups, or school groups: yes Total score: 2 Score interpretation: A score of greater than or equal to 2 indicates the lowest level of social isolation. Little interest or pleasure in doing things: not at all Feeling down, depressed, or hopeless: not at all Feel stressed/tense/nervous/anxious/difficulty sleeping: not at all Life stressors: other Life stressor details: prefer not to say Do you think of yourself as: straight/heterosexual Gender Identity: female Exam Narrative Exam Narrative: Gen.: Awake, alert, in no distress Head: Normocephalic, atraumatic ENT: Moist mucous membranes Respiratory: No respiratory distress, lungs clear bilaterally Cardio: Regular rate and rhythm Gastrointestinal: Abdomen is soft, nondistended and nontender to palpation Extremities: Moves extremities equally Psych: Normal mood and affect Neuro: No focal neuro deficit Skin: Warm, dry, intact Constitutional Vital Signs, click to edit/add: Last Vital Signs Temp 98.1 F 01/21/24 14:22 Pulse 88 01/21/24 15:44 Resp 18 01/21/24 15:44 BP 113/54 01/21/24 15:44 Pulse Ox 98 01/21/24 15:44 O2 Del Method Room Air 01/21/24 15:44 Course Vital Signs Vital signs: Vital Signs Temperature 98.1 F 01/21/24 14:22 Pulse Rate 96 H 01/21/24 14:22 Respiratory Rate 18 01/21/24 14:22 Blood Pressure 126/85 01/21/24 14:22 Pulse Oximetry 98 01/21/24 14:22 Oxygen Delivery Method Room Air 01/21/24 14:22 Temperature 98.1 F 01/21/24 14:22 Pulse Rate 88 01/21/24 15:44 Respiratory Rate 18 01/21/24 15:44 Blood Pressure 113/54 01/21/24 15:44 Pulse Oximetry 98 01/21/24 15:44 Oxygen Delivery Method Room Air 01/21/24 15:44 MDM - Abdominal Pain MDM Narrative Medical decision making narrative: Treated with IV fluids, Zofran and Levsin. She reports feeling much better, she was able to ambulate to the bathroom with no difficulty. Lab studies are within normal limits. Patient does have evidence of a mild UTI. CT scan shows evidence of mild colitis. Patient treated based on the duration of her symptoms with Cipro, Flagyl, Levsin, Zofran for home. She is encouraged to follow a clear liquid diet for the next 48 hours. Follow-up with PCP. Abdomen is soft and benign. Patient is very eager for discharge. Return to the emergency department if symptoms change or worsen. SUPERVISED APC VISIT, PHYSICIAN ATTESTATION: Based on the medical record the care appears appropriate. ? Medical Records Attestation: I reviewed the patient's medical records. Lab Data Attestation: I reviewed the patient's lab results. Labs: Lab Results 01/21/24 01/21/24 Range/Units 14:35 15:52 WBC 7.4 (4.0-11.0) 10^3/uL RBC 4.48 (4.20-5.40) 10^6/uL Hgb 13.4 (12.0-16.0) g/dL Hct 39.5 (36.0-48.0) % MCV 88.2 (81.0-99.0) fL MCH 29.9 (26.7-34.0) pg MCHC 33.9 (29.9-35.2) g/dL RDW 12.3 (11.0-15.0) % Plt Count 257 (150-450) 10^3/uL MPV 8.5 L (9.5-13.5) fL Seg Neuts % (Manual) 90.0 H (43.0-75.0) Lymphocytes % (Manual) 4.0 L (20.5-60.0) % Monocytes % (Manual) 6.0 (1.7-12.0) % Eosinophils % (Manual) 0.0 L (0.9-7.0) % Basophils % (Manual) 0.0 L (0.2-2.0) % Neutrophils # (Manual) 6.66 H (1.4-6.5) 10^3/uL Lymphocytes # (Manual) 0.29 L (1.20-3.80) 10^3/uL Monocytes # (Manual) 0.44 (0.30-0.80) 10^3/uL Eosinophils # (Manual) 0.00 (0.00-0.70) 10^3/uL Basophils # (Manual) 0.00 (0.00-0.10) 10^3/uL ESR 31 H (<=30) mm/hr Sodium 137 (136-145) mmol/L Potassium 3.9 (3.5-5.1) mmol/L Chloride 101 (98-107) mmol/L Carbon Dioxide 28.8 (21.0-32.0) mmol/L Anion Gap 11.1 BUN 16.0 (7.0-18.0) mg/dL Creatinine 0.63 (0.55-1.02) mg/dL Est GFR ( Amer) >60 (>=60) Est GFR (Non-Af Amer) >60 (>=60) BUN/Creatinine Ratio 25.4 Glucose 101 (74-106) mg/dL Lactate 1.0 (0.4-2.0) mmol/L Calcium 8.7 (8.5-10.1) mg/dL Total Bilirubin 0.5 (0.2-1.0) mg/dL AST 15 (15-37) U/L ALT 9 L (14-59) U/L Alkaline Phosphatase 101 (46-116) U/L C-Reactive Protein <0.50 (<=0.50) mg/dL Total Protein 6.7 (6.4-8.2) g/dL Albumin 3.6 (3.4-5.0) g/dL Globulin 3.1 g/dL Albumin/Globulin Ratio 1.2 Lipase 32.0 (16.0-77.0) U/L Urine Color Lt. yellow (YELLOW) Urine Clarity Clear (CLEAR) Urine pH 6.0 (5.0-9.0) Ur Specific [place] 1.020 (1.005-1.025) Urine Protein Negative (NEG/TRACE) mg/dL Urine Glucose (UA) Negative (NEGATIVE) mg/dL Urine Ketones 40 A (NEGATIVE) mg/dL Urine Occult Blood Trace-i (NEGATIVE) Urine Nitrite Negative (NEGATIVE) Urine Bilirubin Negative (NEGATIVE) Urine Urobilinogen 0.2 (0.2-1.0) EU/dL Ur Leukocyte Esterase Small A (NEGATIVE) Urine RBC 2-5 A (0-2) #/HPF Urine WBC 5-10 A (NONE SEEN) #/HPF Ur Squamous Epith Cells Few A (NONE/RARE) #/LPF Urine Crystals None seen (None Seen) #/HPF Urine Bacteria Small A (NONE SEEN) #/HPF Urine Casts None seen (NONE SEEN) #/LPF Urine Mucus Small A (NONE SEEN) Ur Culture Indicated? Yes Imaging Data CT scan - abdomen: Attestation: I have reviewed the pertinent imaging results. Radiologist's impression: ITS Impressions Abdomen/Pelvis CT 01/21/24 14:31 IMPRESSION: Mild diffuse wall thickening of the colon suggesting infectious or inflammatory colitis. Moderate diverticulosis. Electronically authenticated by: CHRISTINE SCHOFIELD Date: 01/21/2024 16:10 Discharge Plan Discharge Chief Complaint: Abdominal Pain Clinical Impression: Colitis, Acute UTI, Nausea, vomiting and diarrhea Patient Disposition: Home, Self-Care Time of Disposition Decision: 16:41 Condition: Good Prescriptions / Home Meds: New ciprofloxacin HCl 500 mg tablet 500 mg PO Q12H Qty: 14 0RF metronidazole 500 mg tablet 500 mg PO Q12H 7 Days Qty: 14 0RF hyoscyamine sulfate [Levsin] 0.125 mg tablet 0.125 mg PO Q6H PRN (Reason: abdominal pain) Qty: 12 0RF ondansetron 4 mg tablet,disintegrating 4 mg PO Q6H PRN (Reason: nausea and vomiting) Qty: 12 0RF No Action baclofen 10 mg tablet 10 mg PO Q8H Patient Comments: 0600,1400,2200 sertraline 50 mg tablet 50 mg PO DAILY acetaminophen 500 mg tablet 1,000 mg PO Q8H PRN (Reason: fever or pain) Metamucil 3.4 gram/5.4 gram powder 1 tbsp PO DAILY Rx Instructions: mix into at least 8 oz of water or juice before administering carboxymethylcellulose sodium 1 % drops, liquid gel 2 drp ophthalmic (eye) TID carbidopa-levodopa 25-100 mg Tablet Extended Release 2 tab PO BID@0600,1400 30 Days Qty: 120 0RF carbidopa-levodopa 25-100 mg tablet 2 tab PO TID 30 Days Qty: 180 0RF Rx Instructions: Take at 0600, 1000, and 1400. Avoid waking pt to give doses sertraline 100 mg tablet 100 mg PO DAILY omeprazole 40 mg capsule,delayed release(DR/EC) 40 mg PO .acb brimonidine 0.2 % drops 2 drp OPHTHALMIC (EYE) TID timolol maleate 0.5 % drops 1 drp OPHTHALMIC (EYE) QAM melatonin 5 mg tablet 5 mg PO BEDTIME bisacodyl [Laxative (bisacodyl)] 10 mg suppository 10 mg FL DAILY PRN (Reason: constipation) calcium carbonate [Calcium 500] 500 mg calcium (1,250 mg) tablet,chewable 1,000 mg PO Q2H PRN (Reason: dyspepsia) loperamide [Anti-Diarrheal (loperamide)] 2 mg capsule 2 mg PO Q6H PRN (Reason: loose stool) cholecalciferol (vitamin D3) 50 mcg (2,000 unit) capsule 50 mcg PO DAILY carbidopa-levodopa [Sinemet] 25-100 mg tablet 1 tab PO .QD@1800 rivastigmine [Exelon Patch] 9.5 mg/24 hour patch 24 hour 9.5 mg transdermal DAILY pregabalin [Lyrica] 25 mg capsule 25 mg PO BID Tums 300 mg (750 mg) tablet,chewable 300 mg PO TID PRN (Reason: dyspepsia) pregabalin 50 mg Capsule 50 mg PO QHS Qty: 30 5RF tramadol 50 mg tablet 50 mg PO Q6H PRN (Reason: pain) 30 Days Qty: 120 0RF Print Language: Setswana Instructions: Urinary Tract Infection in Women (ED), Colitis (ED) Referrals: ELLY SUNSHINE [Primary Care Provider] - 1 week Discharge Date/Time: 01/21/24 16:55
[2024-01-21] MEDS: 0.9 % SODIUM CHLORIDE 1,000 ML 999 ML IV (14:46)
[2024-01-21] MEDS: ONDANSETRON PF 4 MG/2 ML VIAL IV (14:46)
[2024-01-21] MEDS: HYOSCYAMINE SULFATE 0.125 MG TAB.SUBL SL (14:46)
[2024-01-21 14:53] LABS: Hematocrit 39.5 % (36.0-48.0); Hemoglobin 13.4 g/dL (12.0-16.0); Mean Corpuscular HGB Conc 33.9 g/dL (29.9-35.2); Mean Corpuscular Hemoglobin 29.9 pg (26.7-34.0); Mean Corpuscular Volume 88.2 fL (81.0-99.0); Mean Platelet Volume 8.5 fL (9.5-13.5); Red Blood Count 4.48 10^6/uL (4.20-5.40); Red Cell Distribution Width 12.3 % (11.0-15.0); White Blood Count 7.4 10^3/uL (4.0-11.0)
[2024-01-21 14:57] LABS: Erythrocyte Sedimentation Rate 31 mm/hr (<=30)
[2024-01-21 15:11] LABS: Alanine Aminotransferase 9 U/L (14-59); Albumin Globulin Ratio 1.2; Albumin Level 3.6 g/dL (3.4-5.0); Alkaline Phosphatase 101 U/L (46-116); Anion Gap 11.1; Aspartate Amino Transferase 15 U/L (15-37); BUN Creatinine Ratio 25.4; Bilirubin Total 0.5 mg/dL (0.2-1.0); C Reactive Protein <0.50 mg/dL (<=0.50); Calcium 8.7 mg/dL (8.5-10.1); Carbon Dioxide 28.8 mmol/L (21.0-32.0); Chloride 101 mmol/L (98-107); Estimated GFR (African America >60 (>=60); Estimated GFR (Non-African Ame >60 (>=60); Globulin 3.1 g/dL; Glucose 101 mg/dL (74-106); Potassium 3.9 mmol/L (3.5-5.1); Sodium 137 mmol/L (136-145); Total Protein 6.7 g/dL (6.4-8.2)
[2024-01-21 15:12] LABS: Lymphocytes Absolute Manual 0.29 10^3/uL (1.20-3.80); Monocytes Absolute Manual 0.44 10^3/uL (0.30-0.80); Segmented Neut Absolute Manual 6.66 10^3/uL (1.4-6.5)
[2024-01-21 15:16] LABS: Platelet Count 257 10^3/uL (150-450)
[2024-01-21 15:44] VITALS: BP 113/54; PULSE 88; O2SAT 98
[2024-01-21 16:07] LABS: Bilirubin Urine NEGATIVE (NEGATIVE); Blood Urine TRACE-I (NEGATIVE); Clarity Urine CLEAR (CLEAR); Color Urine LT. YELLOW (YELLOW); Glucose Urine UA NEGATIVE (NEGATIVE); Ketones Urine 40 mg/dL (NEGATIVE); Leukocyte Esterase Urine SMALL (NEGATIVE); Nitrite Urine NEGATIVE (NEGATIVE); Protein Urine NEGATIVE (NEG/TRACE); Urobilinogen Urine 0.2 EU/dL (0.2-1.0)
[2024-01-21 16:08] LABS: Urine Microscopic Indicated YES
[2024-01-21 16:17] LABS: Bacteria Urine SMALL #/HPF (NONE SEEN); Cast Seen? NONE SEEN #/LPF (NONE SEEN); Crystals Seen? None Seen #/HPF (None Seen); Mucus Urine SMALL (NONE SEEN); Squamous Epithelial Cell Urine FEW #/LPF (NONE/RARE); Urine Culture Indicated YES
== END 2024-01-21 16:55 | disposition home or self-care (01) ==
PROVIDERS: Physician Assistant; Emergency Provider Emergency Medicine Emergency Medical Services; PCP Family Medicine
DX: N39.0 Urinary tract infection, site not specified (principal); R11.2 Nausea with vomiting, unspecified; K52.9 Noninfective gastroenteritis and colitis, unspecified; G20.A1 Parkinson's disease without dyskinesia, without mention of fluctuations
CPT/HCPCS: 36415; 74177; 80053; 81001; 83605; 83690; 85007; 85027; 85652; 86140; 87086; 87150; 87186; 96361; 96374; 99285; J2405; Q9967

== ENCOUNTER 2024-05-28 11:18 | Emergency (ER) | payer MEDICARE, OTHER, SELFPAY ==
[2024-05-28 11:21] VITALS: BP 146/88; PULSE 108; TEMP 36.8; O2SAT 97; BMI 15.9
--- OUTSIDE RECORDS SUMMARY | 2024-05-28 11:42 | XMS_ITS | CCD ---
Author Organization [facility] CliniSywy Care Team Providers Care Trade Marker Name Role Phone FANNING, RICARDO E Unavailable Unavailable FANNING, RICARDO E Unavailable Unavailable PAY ., DR DAVID Admitting Unavailable PAY ., DR DAVID Attending Unavailable JASPREET, DR SANABRIA Primary Care Unavailable PAY ., DR DAVID Consulting Unavailable GRECHNY ., SALLY CARABALLO Consulting Unavailenrike Vogel MD, Shea Ghosh Primary Care Provider Enrico BUTTERMAKER, Saira R Unavailable Enrico BUTTERMAKER, Saira R Unavailable Jaspreet COLEMAN, Shea Augie Primary Care Provider Jaspreet COLEMAN, Shea Ghosh Unavailable Unavailable Primary Care Provider Unavailenrike Vogel MD, Shea Augie Primary Care Provider [phone] SHEA VOGEL Primary Care Unavailable BELINDA DUMONT Consulting Unavailabl e INPATIENT, TELENEUROLOGY Consulting Unavail able DYLAN CALI Attending Unavailable SUSHIL PIERCE Referring Unavailable JASPREET, SHEA F Primary Care Unavailable ENE MCKOY Attending Unavailable JASPREET, SHEA F Referring Unavailable JASPREET, SHEA F Primary Care Unavailable VERHOFFEVE Attending Unavailable JASPREET, SHEA F Referring Unavailable JASPREET, SHEA F Primary Care Unavailable VERHOFFEVE Attending Unavailable JASPREET, SHEA F Referring Unavailable JASPREET, SHEA F Primary Care Unavailable KYUNG, EHAD Attending Unavailable JASPREET, SHEA F Referring Unavailable JASPREET, SHEA F Primary Care Unavailable SUSHIL PIERCE Attending Unavailable JASPREET, SHEA F Referring Unavailable JASPREET, SHEA F Primary Care Unavailable NIENBERGSYLVIE Referring Unavailable JASPREET, SHEA F Primary Care Unavailable SUSHIL PIERCE Attending Unavailable SUSHIL PIERCE Referring Unavailable JASPREET, SHEA F Primary Care Unavailable KYUNG, EHAD Attending Unavailable JASPREET, SHEA Ghosh Referring Unavailable JASPREET, SHEA Ghosh Primary Care Unavailable JASPREET, SHEA Ghosh Primary Care Unavailable SISI BROOKE Attending Unavailable JASPREET, SHEA Ghosh Referring Unavailable JASPREET, SHEA Ghosh Primary Care Unavailable EANSPRINGENE Referring Unavailable JASPREET, SHEA Ghosh Primary Care Unavailable Saira Weston NP Unavailable SHASHI SERVIN Attending Unavailab SAIRA Preston Attending Unavailable SADAF-NOSSHASHI CHO Attending Unavailab SAIRA Preston Attending Unavailable JASPREET, SHEA Ghosh Attending Unavailable JASPREET, SHEA Ghosh Referring Unavailable SADAF-NOSSEK, SHASHI Natarajan Attending Unavailab le JASPREET, SHEA Ghosh Attending Unavailable JASPREET, SHEA Ghosh Referring Unavailable SADAF-NOSSEK, SHASHI Natarajan Attending Unavailab le JASPREET, SHEA Ghosh Attending Unavailable JASPREET, SHEA Ghosh Attending Unavailable JASPREET, SHEA Ghosh Referring Unavailable JASPREET, SHEA Ghosh Attending Unavailable JASPREET, SHEA Ghosh Attending Unavailable SADAF-NOSSEKSHASHI Attending Unavailab le SADAF-NOSSEKSHASHI Attending Unavailab le Allergies Allergy Classification Reported Allergen(s) Allergy Type Date of Onset Reaction(s) Facility (1 source) buPROPion Drug Allergy 3 [facility] Repository (20 sources) buPROPion Drug Allergy 3 [facility] (8 sources) buPROPion; Translations: [BUPROPION HCL] Drug Allergy 2 [facility] Medications Current Medications Medication Drug Class(es) Dates Sig (Normalized) Sig (Original) acetaminophen 500 mg oral tablet (20 sources) End: 03-07-2024 take 2 tablets by mouth every eight hours as needed for pain acetaminophen (Tylenol) 500 MG tablet Take 1,000 mg by mouth every 8 (eight) hours if needed for mild pain Active take 1 tablet by mirza th every six hours as needed for pain acetaminophen (TYLENOL EXTRA STRENGTH) 5 00 mg tablet Take 1 tablet (500 mg total) by mouth every 6 (six) hours as needed for pain. Active baclofen 10 mg oral tablet (20 sources) gamma-Aminobutyric Acid-ergic Agonist Start: 07-15-2023 take 1 tablet by mouth every eight hours baclofen (Lioresal) 10 MG tablet Indications: Muscle cramping Take 1 tablet (10 mg) by mouth every 8 (eight) hours 120 tablet 3 09/27/2023 Active Start: 07-15-2023 take 1 tablet by mirza th in the morning, then take 1 tablet [...] 07/31/2023 Active bisacodyl 10 mg rectal suppository (20 sources) Stimulant Laxative bisacodyl (Du lcolax) 10 MG suppository Insert into the rectum Daily as needed for constipation Active brimonidine tartrate 2 mg/ml ophthalmic solution (20 sources) alpha-Adrenergic Agonist take 2 drop(s) into the eye(s) in the morning, then take 2 drop(s) into the eye(s) in the evening, then take 2 drop(s) into the eye(s) at bedtime brimonidine (AlphaGAN P) 0.2 % ophthalmic solution Administer 2 drops into both eyes in the morning and 2 drops in the evening and 2 drops before bedtime. Active take 1 drop(s) into the eye(s) three times daily brimonidine (ALPHAGAN) 0.2 % ophthalmic solution 1 drop 3 (three) times a day. Active End: 03-07-2024 take 2 drop(s) into the eye(s) every twelve hours brimonidine (ALPHAGAN) 0.2 % ophthalmic solution Administer 2 drops to both eyes every 12 (twelve) hours. 03/07/2024 Discontinued (Discontinued by another clinician) take 1 drop(s) into the eye(s) in the morning brimonidine (AlphaGAN P) 0.2 % ophthalmic solution Administer 1 drop into both eyes in the morning and 1 drop before bedtime. 0 Active busPIRone hydrochloride 7.5 mg oral tablet (7 sources) Start: 11-18-2023 End: 01-24-2024 take 1 tablet by mouth in the morning busPIRone (BUSPAR) 7.5 mg tablet Take 1 tablet (7.5 mg total) by mouth in the morning. 11/18/2023 Active calcium carbonate 500 mg chewable tablet (20 sources) calcium carbonat e (Tums) 500 MG chewable tablet Chew 500 mg 3 (three) times a day as needed for heartburn or indigestion Active calcium carbonat e (TUMS) 200 mg elemental (500 mg) chewable tablet Chew 2.5 tablets (500 mg total) and swallow in the morning. Active carbidopa 25 mg / levodopa 100 mg extended release oral tablet (20 sources) Aromatic Amino Acid Decarboxylation Inhibitor, Aromatic Amino Acid Start: 10-01-2023 carbidopa-levodopa (SINEMET) 25-100 mg per tablet Indications: Parkinson's disease without dyskinesia, with fluctuating manifestations (CMS-HCC) , Gait instability , Parkinson's disease (CMS-HCC) Take 2 tablets at 6 am, 2 tablets at 10 am, 2 tablet at 2 pm, 1 tablet at 6 pm. Take 30-45 mins before or after meals. 10/01/2023 Active Start: 10-01-2023 carbidopa-levo dopa (SINEMET CR) 25-100 mg per CR tablet Indications: Parkinson's disease without dyskinesia, with fluctuating manifestations (CMS-HCC) , Gait instability , Parkinson's disease (CMS-HCC) Take 2 tablets at 6 am, and 2 tablets at 6 pm 10/01/2023 Active Start: 09-27-2023 take 2 tablets by mo ut in the morning carbidopa-levodopa CR (Sinemet CR) 25-100 MG ER tablet Take 2 tablets by mouth in the morning and 2 tablets before bedtime. 09/27/2023 Active Start: 03-02-2023 carbidopa-levo dopa (SINEMET) 25-100 mg per tablet Indications: Parkinson's [...] 10 mL 11 12/25/2022 12/25/2023 Active cholecalciferol 0.025 mg oral tablet (20 sources) Vitamin D take 1 tablet by mouth once daily cholecalciferol (Vitamin D3) 25 MCG (1000 UT) tablet Take 25 mcg by mouth Daily Active take 1 capsule by mo uth in the morning cholecalciferol, vitamin D3, 2,000 units capsule Take 1 capsule (2,000 Units total) by mouth in the morning. Active cholecalciferol (Vitamin D-3) 50 MCG (2000 UT) tablet Take by mouth Daily. 0 Active ciprofloxacin 500 mg oral tablet (8 sources) Quinolone Antimicrobial Start: 01-22-2024 End: 02-16-2024 take 1 tablet by mouth in the morning ciprofloxacin (Cipro) 500 MG tablet Take 500 mg by mouth in the morning and 500 mg before bedtime. X7 days. 01/22/2024 02/16/2024 Discontinued (Therapy completed) docosahexaenoic acid 120 mg / eicosapentaenoic acid 180 mg oral capsule (11 sources) End: 02-16-2024 take 1 capsule by mouth once daily fish oil concentrate ([place]-3) 1000 MG capsule Take 1 g by mouth Daily 02/16/2024 Discontinued (Therapy completed) famotidine 20 mg oral tablet (3 sources) Histamine-2 Receptor Antagonist Start: 09-20-2022 famotidine (PEPCID) 20 mg tablet gabapentin 300 mg oral capsule (20 sources) Anti-epileptic Agent Start: 05-26-2024 End: 05-26-2025 take 1 capsule by mouth in the morning, then take 1 capsule by mouth in the evening, then take 1 capsule by mouth at bedtime gabapentin (Neurontin) 300 MG capsule Indications: Neuropathy Take 1 capsule (300 mg) by mouth in the morning and 1 capsule (300 mg) in the evening and 1 capsule (300 mg) before bedtime. 90 capsule 11 05/26/2024 05/26/2025 Active Start: 03-07-2024 End: 05-26-2024 gabapentin (Neurontin) 100 M G capsule Start with 1 capsule(100 mg) three times a day, and if tolerated well increase dose further to 2 caps(200 mg) three times daily after 2 weeks. 03/07/2024 05/26/2024 Discontinued Start: 08-18-2023 gabapentin (NE URONTIN) 100 mg capsule Indications: Bilateral leg cramps [...] capsule 1 12/25/2021 07/21/2023 Discontinued (Dose adjustment) hydrOXYzine hydrochloride 25 mg oral tablet (12 sources) Antihistamine Start: 11-18-2023 End: 01-24-2024 hydrOXYzine HCl (Atarax) 25 MG tablet Take by mouth every 6 (six) hours if needed for anxiety 11/18/2023 Active take 1 capsule by mo uth every six hours as needed hydrOXYzine pamoate (Vistaril) 25 MG capsule Take 25 mg by mouth every 6 (six) hours if needed for itching 1 tablet po q6h prn Active hyoscyamine sulfate 0.125 mg oral tablet (20 sources) take 1 tablet by mouth every four hours as needed hyoscyamine (Anaspaz,Levsin) 0.125 MG tablet Take 0.125 mg by mouth every 4 (four) hours if needed for cramping Active ibandronic acid 150 mg oral tablet (20 sources) Bisphosphonate Start: 4 End: 5 take 1 tablet by mouth every 30 days in the morning ibandronate (Boniva) 150 MG tablet Indications: Age-related osteoporosis without current pathological fracture (CMS/HCC) Take 1 tablet (150 mg) by mouth every 30 (thirty) days Take in morning with full glass of water on an empty stomach. No food, drink, meds, or lying down for 60 minutes after. 3 tablet 3 12/02/2023 12/01/2024 Active take 1 tablet by mouth every 30 days ibandronate (Boniva) 150 MG tablet Take 150 mg by mouth every 30 (thirty) days. 0 Active ibuprofen 400 mg oral tablet (8 sources) Nonsteroidal Anti-inflammatory Drug take 1 tablet by mouth every eight hours as needed for pain ibuprofen 400 MG tablet Take 400 mg by mouth every 8 (eight) hours if needed for moderate pain Take 1 tablet po every 8 hours as needed for up to 10 days Active loperamide hydrochloride 2 mg oral capsule (14 sources) Opioid Agonist take 1 capsule by mouth every six hours as needed loperamide (Imodium) 2 MG capsule Take 2 mg by mouth 4 (four) times a day as needed for diarrhea Take 1 capsule po every 6 hours as needed Active take 1 capsule by mo uth four times daily as needed loperamide (IMODIUM) 2 mg capsule Take 1 capsule (2 mg total) by mouth 4 (four) times a day as needed. Active LORazepam 0.5 mg oral tablet (20 sources) Benzodiazepine Start: 06-01-2023 End: 05-03-2024 take 0.5 tablet by mouth every eight hours for anxiety LORazepam (Ativan) 0.5 MG tablet Indications: Generalized anxiety disorder (CMS/HCC) Take 0.5 tablets (0.25 mg) by mouth every 8 (eight) hours if needed for anxiety 30 tablet 04/03/2024 Active Start: 05-29-2022 take 1 tablet by [...] a day 30 tablet 11 01/08/2023 Active megestrol acetate 40 mg oral tablet (20 sources) Progestin Start: 03-08-2024 End: 04-07-2024 take 1 tablet by mouth twice daily megestrol (Megace) 40 MG tablet Indications: Weight loss Take 1 tablet (40 mg total) by mouth 2 (two) times a day. 60 tablet 03/08/2024 04/07/2024 Active Start: 02-16-2024 End: 03-17-2024 take 1 tablet by mouth once daily megestrol (Megace) 20 MG tablet Indications: Weight loss Take 1 tablet (20 mg total) by mouth Daily. 30 tablet 2 02/16/2024 03/08/2024 Discontinued (Reorder) take 1 tablet by mirza th once daily megestrol (Megace) 40 MG tablet Take 40 mg by mouth Daily. Active melatonin 5 mg oral capsule (20 sources) take 1 tablet by mirza th at bedtime Melatonin 5 MG capsule Indications: Insomnia Take 1 tablet by mouth at bedtime Active take 5 mg by mouth once daily me latonin 10 mg tablet Take 5 mg by mouth nightly. Active End: 03-07-2024 melatonin (CIRCADIN) capsule Take by mouth. 03/07/2024 Discontinued (Discontinued by another clinician) metroNIDAZOLE 500 mg oral tablet (8 sources) Nitroimidazole Antimicrobial Start: 01-22-2024 End: 02-16-2024 take 1 tablet by mouth in the morning metroNIDAZOLE (Flagyl) 500 MG tablet Take 500 mg by mouth in the morning and 500 mg before bedtime. X7 days. 01/22/2024 02/16/2024 Discontinued (Therapy completed) mirtazapine 30 mg oral tablet (20 sources) Start: 01-24-2024 End: 04-03-2025 take 1 tablet by mouth at bedtime mirtazapine (Remeron) 30 MG tablet Indications: Generalized anxiety disorder (CMS/HCC) , Insomnia, unspecified type Take 1 tablet (30 mg) by mouth at bedtime 30 tablet 2 04/03/2024 04/03/2025 Active Start: 12-13-2023 End: 12-12-2024 take 1 tablet by mouth at bedtime mirtazapine (Remeron) 15 MG tablet Indications: Generalized anxiety disorder (CMS/HCC) Take 1 tablet (15 mg) by mouth at bedtime 30 tablet 2 12/13/2023 01/24/2024 Discontinued Start: 06-09-2023 End: 09-07-2023 mirtazapine (Remeron) 15 MG tablet Indications: Generalized anxiety disorder (CMS/HCC) Take 2 tablets (30 mg) by mouth as needed at bedtime (may take 1-2 tabs at HS PRN) 60 tablet 2 06/09/2023 09/07/2023 Active [id number]-epa-fish oil ([place]-3 Fish OiL) 300-1,000 mg capsule (3 sources) take 3-300 capsules by mouth once daily dqoqq-[id number]-epa-fish oil ([place]-3 Fish OiL) 300-1,000 mg capsule Take 1,000 mg by mouth once daily. Active omeprazole 40 mg delayed release oral capsule (20 sources) Proton Pump Inhibitor Start : 09-20 End: 09-17 -2025 take 1 capsule by mouth before mealtime omeprazole (PriLOSEC) [address] capsule Indications: Chronic gastritis without bleeding, unspecified gastritis type Take 1 capsule (40 mg) by mouth in the morning. Take before meals. Do not crush or chew.. 30 capsule 11 02/01/2024 01/31/2025 Active ondansetron 4 mg disintegrating oral tablet (20 sources) Serotonin-3 Receptor Antagonist Start : 01-21 take 1 tablet by mouth every eight hours as needed for nausea and vomiting ondansetron ODT (Zofran-ODT) 4 MG disintegrating tablet Take 4 mg by mouth every 8 (eight) hours if needed for nausea or vomiting 01/22/2024 Active Start: 11-18-2023 End: 01-24-2024 take 1 tablet by mouth every eight hours as needed for nausea and vomiting ondansetron (Zofran) 4 MG tablet Take 1 tablet by mouth every 8 (eight) hours if needed for nausea or vomiting 11/18/2023 Active psyllium 3400 mg powder for oral suspension (20 sources) psyllium (Metamu cil) 58.6 % packet Take 1 packet by mouth Daily Mix and drink with at least 8 ounces of water or juice. Active take 1 dose by mouth in the morn ing psyllium (METAMUCIL) 3.4 gram packet Take 1 packet (3.4 g total) by mouth in the morning. Active rivastigmine 3 mg oral capsule (20 sources) Start: 12-17-2023 take 1 capsule by mouth in the morning rivastigmine (Exelon) 3 MG capsule Take 3 mg by mouth in the morning and 3 mg before bedtime. 12/17/2023 Active sertraline 100 mg oral tablet (20 sources) Serotonin Reuptake Inhibitor Start: 04-03-2024 End: 07-02-2024 take 2 tablets by mouth once daily sertraline (Zoloft) 100 MG tablet Indications: Recurrent major depressive disorder, in partial remission (HCC) (CMS/HCC) Take 2 tablets (200 mg) by mouth Daily 30 tablet 1 04/03/2024 07/02/2024 Active Start: 09-22-2023 End: 01-24-2024 take 3 tablets by mouth in the morning sertraline (ZOLOFT) 50 mg tablet Take 3 tablets (150 mg total) by mouth in the morning. 09/22/2023 Active Start: 06-01-2023 End: 01-23-2025 take 1.5 tablets by mouth once daily sertraline (Zoloft) 100 MG tablet Indications: Generalized anxiety disorder (CMS/HCC) Take 1.5 tablets (150 mg) by mouth Daily 45 tablet 2 01/24/2024 01/23/2025 Active Start: 09-20-2022 take 1 tablet by mirza th once daily, then take 3 tablets by mouth once daily sertraline (ZOLOFT) 100 mg tablet Take 1 tablet (100 mg total) by mouth once daily. Take 3, 1/2 tabs by mouth daily 09/20/2022 Active take 1 tablet by mirza th in the morning sertraline (ZOLOFT) 50 mg tablet Take 1 tablet (50 mg total) by mouth in the morning. Take with 100mg tablet. Active sodium chloride 1000 mg oral tablet (14 sources) take 1 tablet by mirza th once sodium chloride 1,000 mg tablet,soluble Take 1 tablet (1,000 mg total) by mouth once. Active End: 02-16-2024 take 1 tablet by mouth in the morning sodium chloride 1 g tablet Take 1 g by mouth in the morning and 1 g before bedtime. 02/16/2024 Discontinued (Therapy completed) sucralfate 1000 mg oral tablet (3 sources) Aluminum Complex Start: 09-20-2022 sucralfate (C ARAFATE) 1 gram tablet 12 hr timolol 5 mg/ml ophthalmic solution (20 sources) beta-Adrenergic Beatrice Start: 11-18-2023 timolol (TIMOPTIC) 0 .5 % ophthalmic solution 11/18/2023 Active Start: 09-09-2023 take 1 drop(s) into the eye(s) once daily timolol (Timoptic) 0.5 % ophthalmic solution Administer 1 drop into both eyes Daily 09/09/2023 Active Start: 08-18-2021 take 1 drop(s) into the eye(s) in the morning timolol (TIMOPTIC) 0.5 % ophthalmic solution Administer 1 drop to both eyes in the morning. 15 mL 3 08/18/2021 Active traMADol hydrochloride 50 mg oral tablet (20 sources) Opioid Agonist traMADol (Ultram ) 50 MG tablet Take by mouth every 6 (six) hours if needed for severe pain Active Completed/Discontinued Medications Medication Drug Class(es) Dates [...] tablet 3 04/16/2023 08/18/2023 Discontinued (Alternate therapy) Eyelid Cleansers (OCUSOFT LID SCRUB FOAMING EX) (8 sources) End: 01-24-2024 Eyelid Cleansers (OCUSOFT LID SCRUB FOAMING EX) Apply topically. 01/24/2024 Discontinued Eyelid Cleansers (OCUSOFT LID SCRUB FOAMING EX) Apply topically. Active Eyelid Cleansers (OCUSOFT LID SCRUB FOAMING EX) Apply topically. 0 Active Lidocaine / Menthol (4 sources) Antiarrhythmic, Amide Local Anesthetic End: 01-24-2024 apply 4 doses topically once daily Lidocaine-Menthol (LIDOZENPATCH EX) Apply topically 4-1% adhesive topical patch medicated right shoulder daily 01/24/2024 Discontinued apply 4 doses topically once jarett ly Lidocaine-Menthol (LIDOZENPATCH EX) Apply topically 4-1% adhesive topical patch medicated right shoulder daily Active microencapsulated potassium chloride 20 meq extended release oral tablet (20 sources) Start: 11-18-2023 End: 04-03-2024 take 1 tablet by mouth in the morning potassium chloride CR (Klor-Con M20) 20 MEQ ER tablet Indications: Hypokalemia Take 20 mEq by mouth in the morning and 20 mEq before bedtime. 11/18/2023 04/03/2024 Discontinued take 15 mL by mouth in the morni ng potassium chloride 40 MEQ/15ML (20%) solution Take 15 mL by mouth in the morning and 15 mL before bedtime. Active take 1 dose by mouth in the morn ing potassium chloride (KLOR-CON) 20 mEq packet Take 1 packet (20 mEq total) by mouth in the morning and 1 packet (20 mEq total) before bedtime. Active pregabalin 25 mg oral capsule (2 sources) Start: 10-01-2023 End: 03-07-2024 take 1 capsule by mouth in the morning, then take 1 capsule by mouth at bedtime pregabalin (LYRICA) 25 mg capsule Indications: Muscle cramping , Chemotherapy-induced neuropathy (CMS-HCC) , Lumbar spondylosis , Bilateral leg cramps Take 1 capsule (25 mg total) by mouth in the morning and 1 capsule (25 mg total) before bedtime. 60 capsule 3 10/01/2023 03/07/2024 Discontinued (Discontinued by another clinician) Start: 08-18-2023 take 1 capsule by mo ut in the morning, then take 1 capsule by mouth at bedtime pregabalin (LYRICA) 50 mg capsule Indications: Lumbar spondylosis , Bilateral leg cramps Take 1 capsule (50 mg total) by mouth in the morning and 1 capsule (50 mg total) before bedtime. 60 capsule 1 08/18/2023 Active Problems Active Problems Problem Classification Problem Date Documented Da te Episodic/Chronic Abdominal pain (2 sources) Abdominal pain; Translations: [Unspecified abdominal pain] Onset: 4 02-23-2024 Episodic Adjustment disorders (20 sources) Adjustment disorder with anxious mood; Translations: [Adjustment disorder with anxiety] Onset: 3 10-01-2022 Chronic Anxiety disorders (20 sources) Anxiety disorder, unspecified; Translations: [Generalized anxiety disorder] Onset: 2 Chronic Biliary tract disease (1 source) Other specified diseases of biliary tract; Translations: [Other specified diseases of biliary tract] Onset: 4 Chronic Cancer of uterus (20 sources) Malignant neoplasm of endometrium of corpus uteri ; Translations: [Malignant neoplasm of endometrium] Onset: 3 01-06-2023 Chronic Delirium, dementia, and amnestic and other cognitive disorders (2 sources) Dementia; Translations: [Unspecified dementia without behavioral disturbance] 05-26-2024 Chronic Esophageal disorders (20 sources) Gastroesophageal reflux disease without esophagitis; Translations: [Gastro-esophageal reflux disease without esophagitis] Onset: 3 10-01-2022 Chronic Gastritis and duodenitis (20 sources) Chronic gastritis; Translations: [Unspecified chronic gastritis without bleeding] Onset: 3 10-01-2022 Chronic Genitourinary symptoms and ill-defined conditions (2 sources) Urinary incontinence; Translations: [Unspecified urinary incontinence] 02-16-2024 Chronic Genitourinary symptoms and ill-defined conditions (2 sources) Blood in urine; Translations: [Hematuria, unspecified] 02-16-2024 Episodic Glaucoma (20 sources) Glaucoma; Translations: [Unspecified glaucoma] Onset: 3 10-01-2022 Chronic Immunizations and screening for infectious disease (2 sources) Patient encounter status; Translations: [Encounter for immunization] 02-01-2024 Episodic Mood disorders (20 sources) Major depressive disorder, single episode, unspecified; Translations: [Recurrent major depression in partial remission] Onset: 2 09-26-2022 Chronic Nausea and vomiting (5 sources) Nausea and vomiting; Translations: [Nausea with vomiting, unspecified] Onset: 4 03-15-2024 Episodic Nutritional deficiencies (20 sources) Deficiency of macronutrients; Translations: [Unspecified protein-calorie malnutrition] Onset: 4 12-30-2023 Chronic Osteoporosis (20 sources) Osteoporosis; Translations: [Age-related osteoporosis without current pathological fracture] Onset: 3 10-01-2022 Chronic Other aftercare (1 source) Other detention (current) drug therapy; Translations: [OTH USP CURRENT DRUG THERAPY] Onset: 3 Episodic Other and ill-defined heart disease (20 sources) Left atrial enlargement; Translations: [Cardiomegaly] Onset: 3 10-01-2022 Chronic Other connective tissue disease (2 sources) Bilateral cramp of muscle of lower limbs; Translations: [Cramp and spasm] 07-21-2023 Episodic Other connective tissue disease (1 source) Cramp in lower limb; Translations: [Cramp and spasm] 03-07-2024 Episodic Other fractures (1 source) Wedge compression fracture of T7-T8 vertebra, initial encounter for closed fracture; Translations: [Wedge compression fracture of T7-T8 vertebra, initial encounter for closed fracture] Onset: 4 Episodic Other gastrointestinal disorders (6 sources) Oropharyngeal dysphagia; Translations: [Dysphagia, oropharyngeal phase] 03-08-2024 Episodic Other gastrointestinal disorders (1 source) Diarrhea of presumed infectious origin; Translations: [Diarrhea, unspecified] 03-15-2024 Episodic Other gastrointestinal disorders (2 sources) Diarrhea, unspecified; Translations: [Diarrhea, unspecified] Onset: 4 Episodic Other hereditary and degenerative nervous system conditions (20 sources) Coarse tremor; Translations: [Other specified forms of tremor] Onset: 3 10-01-2022 Chronic Other hereditary and degenerative nervous system conditions (2 sources) Dystonia; Translations: [Dystonia, unspecified] 07-01-2023 Chronic Other nervous system disorders (20 sources) Neuropathy; Translations: [Polyneuropathy, unspecified] Onset: 3 10-01-2022 Chronic Other nervous system disorders (20 sources) Chronic pain; Translations: [Other chronic pain] Onset: 3 10-01-2022 Chronic Other nervous system disorders (20 sources) Secondary parkinsonism; 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, unspecified] Onset: 3 10-01-2022 Chronic Other nervous system disorders (20 sources) Polyneuropathy; Translations: [Polyneuropathy, unspecified] Onset: 3 10-01-2022 Chronic Other nervous system disorders (20 sources) Neuropathy caused by chemical substance; Translations: [Drug-induced polyneuropathy] Onset: 2 01-06-2023 Chronic Other nervous system disorders (1 source) Other chronic pain; Translations: [Other chronic pain] Onset: 4 Chronic Other nervous system disorders (1 source) Drug-induced polyneuropathy; Translations: [Drug-induced polyneuropathy] Onset: 2 Chronic Other nutritional; endocrine; and metabolic disorders (11 sources) Weight loss; Translations: [Abnormal weight loss] 02-16-2024 Episodic Other nutritional; endocrine; and metabolic disorders (2 sources) Abnormal weight loss; Translations: [Abnormal weight loss] Onset: 4 Episodic Parkinson`s disease (3 sources) Parkinson's disease; Translations: [Parkinson's disease] Onset: 3 05-26-2024 Chronic Parkinson`s disease (2 sources) Parkinson`s disease; Translations: [Parkinson's disease without dyskinesia, with fluctuations] Onset: 2 Residual codes; unclassified (20 sources) Periodic limb movement disorder; Translations: [Periodic limb movement disorder] Onset: 2 01-06-2023 Chronic Residual codes; unclassified (1 source) Periodic limb movement disorder; Translations: [Periodic limb movement disorder] Onset: 2 Chronic Residual codes; unclassified (4 sources) Insomnia; Translations: [Insomnia, unspecified] 04-03-2024 Episodic Spondylosis; intervertebral disc disorders; other back problems (4 sources) Lumbar spondylosis; Translations: [Spondylosis without myelopathy or radiculopathy, lumbar region] Onset: 4 07-21-2023 Chronic Thyroid disorders (20 sources) Non-toxic multinodular goiter; Translations: [Nontoxic multinodular goiter] Onset: 3 10-01-2022 Chronic Unclassified (20 sources) Parkinson's disease; Translations: [Parkinson's disease] Onset: 2 10-01-2022 Chronic Unclassified (1 source) Unknown / UNK(Unknown) Onset: 7 Unclassified (1 source) CONTACT W/AND (SUSP) EXPOS COVID-19; Translations: [CONTACT W/AND (SUSP) EXPOS COVID-19] Onset: 3 Unclassified (1 source) ?Parkinsons progression Onset: 4 Unclassified (1 source) Decreased Appetite Onset: 4 Unclassified (1 source) Weight Loss, Not Eating Onset: 4 Unclassified (1 source) Low back pain, unspecified; Translations: [Low back pain, unspecified] Onset: 4 Urinary tract infections (2 sources) Acute cystitis; Translations: [Acute cystitis without hematuria] 02-23-2024 Episodic Past or Other Problems Problem Classification Problem Date Documented Da te Episodic/Chronic Cancer of uterus (8 sources) History of malignant neoplasm of endometrium; Translations: [Personal history of malignant neoplasm of other parts of uterus] Onset: 2 11-07-2021 Episodic Deficiency and other anemia (20 sources) Iron deficiency anemia; Translations: [Iron deficiency anemia, unspecified] Onset: 4 12-30-2023 Episodic E Codes: Adverse effects of medical drugs (1 source) Adverse effect of antineoplastic and immunosuppressive drugs, initial encounter; Translations: [Adverse effect of antineoplastic and immunosuppressive drugs, initial encounter] Onset: 2 Episodic E Codes: Fall (14 sources) Fall; Translations: [Unspecified fall, sequela] Onset: 2 11-07-2021 Episodic Fracture of neck of femur (hip) (6 sources) Closed intertrochanteric fracture of left femur; Translations: [Displaced intertrochanteric fracture of left femur, initial encounter for closed fracture] Onset: 2 09-14-2021 Episodic Mood disorders (20 sources) Mood disorders; Translations: [Depression, unspecified] Onset: 4 Resolved: 5 06-01-2023 Other and unspecified benign neoplasm (6 sources) Cutaneous neurofibroma; 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, unspecified] Onset: 9 11-01-2018 Episodic Other circulatory disease (20 sources) Low blood pressure; Translations: [Hypotension, unspecified] Onset: 3 10-01-2022 Episodic Other circulatory disease (20 sources) History of hypotension; Translations: [Personal history of other diseases of the circulatory system] Onset: 2 01-06-2023 Episodic Other circulatory disease (6 sources) Orthostatic hypotension; Translations: [Orthostatic hypotension] Onset: 2 07-14-2021 Episodic Other circulatory disease (1 source) Personal history of other diseases of the circulatory system; Translations: [Personal history of other diseases of the circulatory system] Onset: 2 Episodic Other connective tissue disease (20 sources) Cramp; Translations: [Cramp and spasm] Onset: 3 04-01-2023 Episodic Other connective tissue disease (1 source) Cramp and spasm; Translations: [Cramp and spasm] Onset: 3 Episodic Other connective tissue disease (1 source) Pain in lower limb Onset: 4 Episodic Other fractures (1 source) Wedge compression fracture of unspecified thoracic vertebra, initial encounter for closed fracture; Translations: [Wedge compression fracture of unspecified thoracic vertebra, initial encounter for closed fracture] Onset: 4 Episodic Other gastrointestinal disorders (20 sources) Dysphagia; Translations: [Dysphagia, unspecified] Onset: 4 12-30-2023 Episodic Other infections; including parasitic (20 sources) Personal history of other infectious and parasitic diseases; Translations: [History of 2019 novel coronavirus disease (COVID-19)] Onset: 3 10-01-2022 Episodic Other nervous system disorders (20 sources) Tremor; Translations: [Tremor, unspecified] Onset: 3 10-01-2022 Episodic Other nervous system disorders (20 sources) Abnormal gait; Translations: [Unsteadiness on feet] Onset: 2 01-06-2023 Episodic Other nervous system disorders (1 source) Unsteadiness on feet; Translations: [Unsteadiness on feet] Onset: 2 Episodic Other non-epithelial cancer of skin (20 sources) Intraepidermal squamous carcinoma of leg; Translations: [Carcinoma in situ of skin of left lower limb, including hip] Onset: 9 01-06-2023 Episodic Other nutritional; endocrine; and metabolic disorders (20 sources) Underweight; Translations: [Underweight] Onset: 3 10-01-2022 Episodic Other screening for suspected conditions (not mental disorders or infectious disease) (20 sources) Decreased vitamin D; Translations: [Other specified abnormal findings of blood chemistry] Onset: 3 10-01-2022 Episodic Other skin disorders (6 sources) Skin lesion; Translations: [Disorder of the skin and subcutaneous tissue, unspecified] Onset: 9 09-26-2018 Episodic Residual codes; unclassified (20 sources) Hallucinations; Translations: [Hallucinations, unspecified] Onset: 3 10-01-2022 Episodic Residual codes; unclassified (20 sources) Forgetful; Translations: [Other general symptoms and signs] Onset: 3 04-01-2023 Episodic Residual codes; unclassified (7 sources) History of syncope; Translations: [Personal history of other specified conditions] Onset: 2 11-10-2021 Episodic Residual codes; unclassified (1 source) Personal history of other specified conditions; Translations: [Personal history of other specified conditions] Onset: 2 Episodic Residual codes; unclassified (1 source) Other general symptoms and signs; Translations: [Other general symptoms and signs] Onset: 3 Episodic Spondylosis; intervertebral disc disorders; other back problems (20 sources) Spinal stenosis in cervical region; Translations: [Spinal stenosis, cervical region] Onset: 3 10-01-2022 Episodic Unclassified (6 sources) Onset: 3 Resolved: 4 03-03-2023 Results Test Name Value Interpretation Reference Range Facility C DIFFICILE BY PCRon 024 C. difficile toxin genes JOSE G+probe Ql (Stl) TOXIGENIC C DIFF Negative (qualifier value) 027 NAP1 Negative (qualifier value) Normal PRNEG [facility] Comment on above: Performed By: #### 8 2195-9 ####[facility] ([id number])[address] [place] [address] 96778CQAEVZ[facility] ([id number])[address] [address]#### 07493-8 ####[facility] ([id number])[address] [address] Calprotectin (Stl) [Mass/Mas s]on 03-23-2024 Calprotectin, F <50.0 Normal <50.0 (Normal) [facility] Comment on above: Result Comment: NOTE Test Performed by: [facility] [address] [place] [address] Bowl Topper: Nina Cage Ph.D.; CLIA# [id number] Performed By: #### 2 5907-7, 75633-0 ####[facility] ([id number])[address] [place] [address] Elastase.pancreatic (Stl) [M ass/Mass]on 03-23-2024 Pancreatic Elastase, F 437 mcg/g Normal >200 (Normal) [facility] Comment on above: Result Comment: NOTE Test Performed by: [facility] [address] [place] [address] Bowl Topper: Nina Cage Ph.D.; CLIA# [id number] Performed By: #### 2 5907-7, 98904-3 ####[facility] ([id number])[address] [place] [address] GI PANELon 03-23-2024 Gastrointestinal pathogens DNA and RNA panel JOSE G+non-probe (Stl) SPECIMEN SOURCE STOOL CAMPYLOBACTER Not detected (qualifier value) PLESIOMONAS Not detected (qualifier value) SALMONELLA Not detected (qualifier value) VIBRIO Not detected (qualifier value) VIBRIO CHOLERAE Not detected (qualifier value) Y. ENTEROCOLITICA Not detected (qualifier value) AGGREGATIVE E COLI Not detected (qualifier value) PATHOGENIC E COLI Not detected (qualifier value) TOXIGENIC E COLI Not detected (qualifier value) SHIGA TOXIN E COLI Not detected (qualifier value) SHIGELLA-E COLI Not detected (qualifier value) CRYPTOSPORIDIUM Not detected (qualifier value) CYCLOSPORA Not detected (qualifier value) E HISTOLYTICA Not detected (qualifier value) GIARDIA LAMBLIA Not detected (qualifier value) ADENOVIRUS Not detected (qualifier value) ASTROVIRUS Not detected (qualifier value) NOROVIRUS Not detected (qualifier value) ROTAVIRUS A Not detected (qualifier value) SAPOVIRUS Not detected (qualifier value) Normal NDET [facility] Comment on above: Performed By: #### 8 2195-9 #### [facility] ([id number]) [address] [place] [address] [facility] ([id number]) [address] [place] [address] #### 08201-3 #### [facility] ([id number]) [address] [facility] [place] [address] MR MRCP WITH MRI ABD W WO CO NTon 03-23-2024 MR MRCP WITH MRI ABD W WO CONT MR MRCP WITH MRI ABD W WO CONT CLINICAL INFORMATION: Abdominal cramps; Ampulla of Vater mass; Weight loss, assessment for malignancy, past endometrial cancer status post chemotherapy. TECHNIQUE: Multiplanar, multisequence MR imaging of the abdomen with MRCP was performed with and without intravenous contrast Prohance. 3-D maximum intensity projection images were generated and reviewed under concurrent physician supervision. COMPARISON: 03/08/2024 CT abdomen and pelvis. FINDINGS: Lower chest: Minimal linear atelectasis, no significant focal consolidation. Hepatobiliary: Hepatic segment 5 well-rounded 5 mm cyst does not require follow-up. No suspicious focal hepatic lesions. Noncirrhotic liver morphology without significant fat or iron deposition. Gallbladder without visualized gallstones. No biliary dilatation. Pancreas: Slightly prominent pancreatic head duct measuring up to 3 mm, within normal limits for the patient's age. No sudden tapering of pancreatic or common bile duct. Pancreaticobiliary junction is patent. No focal lesions within limitations of this study. Spleen: Within normal limits. Adrenal glands: Within normal limits. Urinary: Multiple left-sided peripelvic renal cysts requiring no further workup. Visualized right kidney unremarkable. GI tract and peritoneum: The small bowel is not dilated. Sigmoid and descending colon diverticulosis. Vasculature: The abdominal aorta is nonaneurysmal. Lymph nodes: Not enlarged. Other: T12 kyphoplasty changes and left S1 perineural cyst. IMPRESSION: * Slightly prominent pancreatic duct at the upper level normal limits for the patient's age. * No mass or other pancreatic irregularity identified on MRCP. Approved by Resident Remedios Gardiner MD on 03/23/2024 9:14 AM Yousuf Alvarado DO have personally reviewed the image(s) and agree with and/or edited the report Finalized by Yousuf Roman DO on 03/23/2024 11:34 AM Normal [facility] BASIC METABOLIC PANLon 03-08 Anion gap [Moles/Vol] 10 mmol/L Normal 5-15 [facility] Comment on above: Performed By: #### C BCA, BMP, 3040-3, LIVR, 39030-4 #### [facility] ([id number]) [address] [place] [address] Calcium [Mass/Vol] 9.2 mg/dL Normal 8.5-10.5 [facility] Comment on above: Performed By: #### C BCA, BMP, 3040-3, LIVR, 22057-3 #### [facility] ([id number]) [address] [place] [address] 359[address] Chloride [Moles/Vol] 103 mmol/L Normal 98-109 [facility] Comment on above: Performed By: #### C BCA, BMP, 3040-3, LIVR, 41132-1 #### [facility] ([id number]) [address] [place] [address] 16357 CO2 [Moles/Vol] 24 mmol/L Normal 22-32 [facility] Comment on above: Performed By: #### C BCA, BMP, 3040-3, LIVR, 31943-5 #### [facility] ([id number]) [address] [place] [address] 28059 Creatinine [Mass/Vol] 0.71 mg/dL Normal 0.40-1.00 [facility] Comment on above: Result Comment: METH OD TRACEABLE TO IDMS STANDARD Performed By: #### C BCA, BMP, 0-3, LIVR, 40642-7 #### [facility] ([id number]) [address] [place] [address]244 eGFR (CKD-EPI) NON-RACE DEPENDENT >90 Normal >59 [facility] Comment on above: Result Comment: Reported eGFR is based on the CKD-EPI 2020 equation that does not use a race coefficient. Performed By: #### C BCA, BMP, 3040-3, LIVR, 77265-0 #### [facility] ([id number]) [address] [place] [address] 73728 Glucose [Mass/Vol] 111 mg/dL High 65-99 [facility] Comment on above: Performed By: #### C BCA, BMP, 3040-3, LIVR, 93566-8 #### [facility] ([id number]) [address] [place] [address]197 Potassium [Moles/Vol] 4.3 mmol/L Normal 3.5-5.0 [facility] Comment on above: Performed By: #### C BCA, BMP, 3040-3, LIVR, #### [facility] ([id number]) [address] [place] [address]16 Sodium [Moles/Vol] 137 mmol/L Normal 134-146 [facility] Comment on above: Performed By: #### C BCA, BMP, 3040-3, LIVR, #### [facility] ([id number]) [address] [place] [address] 23783 Urea nitrogen [Mass/Vol] 18 mg/dL Normal 5-27 [facility] Comment on above: Performed By: #### C BCA, BMP, 3040-3, LIVR, 30742-2 #### [facility] ([id number]) [address] [place] [address] 73087 CBC AND AUTO DIFFon 10-23-20 24 ABSOLUTE BASOPHIL 0.0 X10E9/L Normal 0.0-0.2 [facility] Comment on above: Performed By: #### C BCA, BMP, 3040-3, LIVR, #### [facility] ([id number]) [address] [place] [address] 75188 ABSOLUTE NEUTROPHIL 6.8 X10E9/L High 1.5-6.6 [facility] Comment on above: Performed By: #### C BCA, BMP, 3040-3, LIVR, #### [facility] ([id number]) [address] [place] [address] 01040 Basophils/100 WBC (Bld) 0.3 % Normal [facility] Comment on above: Performed By: #### C BCA, BMP, 3040-3, LIVR, #### [facility] ([id number]) [address] [place] [address] 96320 Eosinophils (Bld) [#/Vol] 0.0 10*3/uL Normal 0.0-0.4 [facility] Comment on above: Performed By: #### C BCA, BMP, 3040-3, LIVR, #### [facility] ([id number]) [address] [place] [address] 85438 Eosinophils/100 WBC (Bld) 0.3 % Normal [facility] Comment on above: Performed By: #### C BCA, BMP, 3039-3, LIVR, #### [facility] ([id number]) [address] [place] [address] 46865 Erythrocyte distribution width (RBC) [Ratio] 14.2 % Normal 11.5-15.0 [facility] Comment on above: Performed By: #### C BCA, BMP, 3039-3, LIVR, #### [facility] ([id number]) [address] [place] [address] 86153 Hematocrit (Bld) [Volume fraction] 40.9 % Normal 35-47 [facility] Comment on above: Performed By: #### C BCA, BMP, 3040-3, LIVR, #### [facility] ([id number]) [address] [place] [address] 76584 Hemoglobin (Bld) [Mass/Vol] 13.9 g/dL Normal 11.7-15.5 [facility] Comment on above: Performed By: #### C BCA, BMP, 3040-3, LIVR, #### [facility] ([id number]) [address] [place] [address] 07947 Lymphocytes (Bld) [#/Vol] 0.5 10*3/uL Low 1.0-3.5 [facility] Comment on above: Performed By: #### C BCA, BMP, 3040-3, LIVR, #### [facility] ([id number]) [address] [place] [address] 18218 Lymphocytes/100 WBC (Bld) 5.8 % Normal [facility] Comment on above: Performed By: #### C BCA, BMP, 3040-3, LIVR, #### [facility] ([id number]) [address] [place] [address] 94172 MCH (RBC) [Entitic mass] 29.6 pg Normal 27-34 [facility] Comment on above: Performed By: #### Federico BCA, BMP, 3040-3, LIVR, #### [facility] ([id number]) [address] [place] [address] 10315 MCHC (RBC) [Mass/Vol] 34.0 g/dL Normal 32-36 [facility] Comment on above: Performed By: #### C BCA, BMP, 3040-3, LIVR, #### [facility] ([id number]) [address] [place] [address] 03576 MCV (RBC) [Entitic vol] 87 fL Normal 80-100 [facility] Comment on above: Performed By: #### C BCA, BMP, 3040-3, LIVR, #### [facility] ([id number]) [address] [place] [address] 81986 Monocytes (Bld) [#/Vol] 0.5 10*3/uL Normal 0-0.9 [facility] Comment on above: Performed By: #### C BCA, BMP, 3040-3, LIVR, #### [facility] ([id number]) [address] [place] [address] 75804 Monocytes/100 WBC (Bld) 6.7 % Normal [facility] Comment on above: Performed By: #### C BCA, BMP, 3040-3, LIVR, 79888-7 #### [facility] ([id number]) [address] [place] [address] 78483 Neutrophils/100 WBC (Bld) 86.9 % Normal [facility] Comment on above: Performed By: #### C BCA, BMP, 3040-3, LIVR, #### [facility] ([id number]) [address] [place] [address] 95548 Platelet mean volume (Bld) [Entitic vol] 7.4 fL Normal 7-12 [facility] Comment on above: Performed By: #### C BCA, BMP, 3040-3, LIVR, #### [facility] ([id number]) [address] [place] [address] 04639 Platelets (Bld) [#/Vol] 298 10*3/uL Normal 150-450 [facility] Comment on above: Performed By: #### C BCA, BMP, 3040-3, LIVR, 15832-1 #### [facility] ([id number]) [address] [place] [address] 31583 RBC COUNT 4.70 X10E12/L Normal 3.80-5.20 [facility] Comment on above: Performed By: #### C BCA, BMP, 3040-3, LIVR, #### [facility] ([id number]) [address] [place] [address] 77216 WBC (Bld) [#/Vol] 7.8 10*3/uL Normal 4.0-11.0 [facility] Comment on above: Performed By: #### C BCA, BMP, 3040-3, LIVR, 82091-8 #### [facility] ([id number]) [address] [place] [address] CT ABDOMEN AND PELVIS W CONT on 03-08-2024 CT ABDOMEN AND PELVIS W CONT CT ABDOMEN AND PELVIS W CONT STUDY: ABDOMEN AND PELVIS CT WITH CONTRAST CLINICAL HISTORY: Weight loss, vomiting, diarrhea COMPARISON: 04/26/2022 TECHNIQUE: Routine CT abdomen and pelvis was performed according to standard protocol. FINDINGS: Visualized lung bases are unremarkable. The liver, spleen, adrenal glands, pancreas, gallbladder, and right kidney are unremarkable. Several small parapelvic left renal cysts. No enlarged abdominal lymph nodes. Pelvic surgical clips. The bladder is unremarkable. Previous hysterectomy. The small and large bowel are of normal caliber with no evidence of bowel wall thickening. Colonic diverticulosis without acute inflammation. No free fluid in the abdomen or pelvis. No free intraperitoneal air. Previous T12 kyphoplasty. Sclerotic changes in the sacrum likely related to previous/insufficiency fractures. Postsurgical changes in the proximal left femur. IMPRESSION: * No acute abnormalities identified in the abdomen/pelvis. All CT scans at this facility use dose modulation, iterative reconstruction, and/or weight based dosing when appropriate to reduce radiation dose to as low as reasonably achievable. Finalized by Charles Renner MD on 03/08/2024 12:39 PM Normal [facility] LIPASEon 03-08-2024 Lipase [Catalytic activity/Vol] 56 U/L High 17-40 [facility] Comment on above: Performed By: #### C BCA, BMP, 3040-3, LIVR, 16316-7 #### [facility] ([id number]) [address] [place] [address] 41031 LIVER PANELon 03-08-2024 Albumin [Mass/Vol] 4.5 g/dL Normal 3.2-5.3 [facility] Comment on above: Performed By: #### C BCA, BMP, 3040-3, LIVR, 72255-4 #### [facility] ([id number]) [address] [place] [address] 65719 ALP [Catalytic activity/Vol] 73 U/L Normal 39-130 [facility] Comment on above: Performed By: #### C BCA, BMP, 3040-3, LIVR, #### [facility] ([id number]) [address] [place] [address] 49755 ALT [Catalytic activity/Vol] 17 U/L Normal 0-31 [facility] Comment on above: Performed By: #### C BCA, BMP, 3040-3, LIVR, 27747-3 #### [facility] ([id number]) [address] [place] [address] 19759 AST [Catalytic activity/Vol] 14 U/L Normal 0-41 [facility] Comment on above: Performed By: #### C BCA, BMP, 3040-3, LIVR, 30900-4 #### [facility] ([id number]) [address] [place] [address] [place] [address] Bilirubin [Mass/Vol] 0.8 mg/dL Normal 0.3-1.2 [facility] Comment on above: Performed By: #### C BCA, BMP, 3040-3, LIVR, 32184-0 #### [facility] ([id number]) [address] [place] [address] 22961 Bilirubin.direct [Mass/Vol] 0.1 mg/dL Normal 0.0-0.4 [facility] Comment on above: Performed By: #### C BCA, BMP, 3040-3, LIVR, 41190-7 #### [facility] ([id number]) [address] [place] [address] 23830 Protein [Mass/Vol] 7.5 g/dL Normal 6.0-8.0 [facility] Comment on above: Performed By: #### C BCA, BMP, 3040-3, LIVR, #### [facility] ([id number]) [address] [facility], [place] [address] MAGNESIUMon 03-08-2024 Magnesium [Mass/Vol] 1.9 mg/dL Normal 1.8-2.6 [facility] Comment on above: Performed By: #### C BCA, BMP, 3040-3, LIVR, 62762-5 #### [facility] ([id number]) [address] [facility], [place] [address] US RUQon 02-23-2024 US RUQ EXAM: Limited Abdome n Ultrasound: REASON FOR EXAM: Nausea. COMPARISON: None TECHNIQUE: Longitudinal and transverse grayscale, color Doppler, spectral analysis of the right upper abdomen obtained. FINDINGS: The pancreas is sonographically normal. The liver is normal size and echogenicity. No free fluid in Morisons pouch. Portal vein flow is appropriate. The gallbladder is nondistended. No shadowing calculi, wall thickening or pericholecystic fluid. The ducts are nondilated. One image demonstrates a subtle hyperechoic focus in the distal common duct. The right kidney is without shadowing calculi or hydronephrosis. Measurements: CBD: 0.26 cm GB wall: 0.9 cm Pancreas: WNL Right kidney: 9.07 x 4.74 x 4.73 cm Liver: WNL IMPRESSION: 1. No sonographic evidence of cholelithiasis or acute cholecystitis. 2. No biliary ductal dilatation. One image shows a potential stone versus volume averaging in the common duct. MRCP is recommended. *This report is generated using voice recognition reporting (WhoWanna). On occasion [employer] erroneously drops words from the report or replaces the spoken word with similar sounding words. Please call with any questions/concerns regarding this report.* Dictated and transcribed 02/23/24/dpd This report has been electronically signed and approved by the interpreting radiologist. Electronically Signed Dell Bey II, M.D. 2024-02-23 10:07:12 Normal Not Available Urinalysis macro (dipstick) panel (U)on 02-16-2024 Bilirubin, UA Negative Negative - 4(70) +++ mg/dL [facility] Blood, UA Positive Negative - 50 Felix/mcL [facility] Clarity, UA Clear [facility] Color, UA Light Yellow [facility] Glucose, UA Negative Negative - 1999(110) ++++ mg/dL [facility] Interpretation and review of laboratory results Abnormal [facility] Ketones, UA Negative Negative - 160(16) ++++ mg/dL [facility] Leukocytes, UA Negative Negative - 500+++ Sonal/mcL [facility] Nitrite, UA Negative Negative - Positive [facility] pH, UA 5.0 5 - 9 [facility] Protein, UA Negative Negative - 2000(20) ++++ mg/dL [facility] Spec Grav, UA 1.020 1 - 1.03 [facility] Urobilinogen, UA 1.0 0.2 - 12 mg/dL [facility] BI MAMMOGRAM SCREENING TOMOS YNTHESIS BILATERALon 01-11-2024 BI MAMMOGRAM SCREENING TOMOSYNTHESIS BILATERAL This is a summary report. The complete report is available in the patient's medical record. If you cannot access the medical record, please contact the sending organization for a detailed fax or copy. EXAMINATION: BI MAMMOGRAM SCREENING TOMOSYNTHESIS BILATERAL CLINICAL HISTORY:screen COMPARISON: October 15, 2022. RESULT: Density: The breasts are almost entirely fatty Overall appearance is stable. Right central breast biopsy clip. There is no suspicious mass, asymmetry, architectural distortion, or calcification. IMPRESSION: BIRADS 1 - Negative Follow-up: Routine Screening Mamm Board Certified Radiologists. Accredited by the ACR and FDA. MAMMOGRAPHY IS VERY IMPORTANT TO YOUR HEALTH. THE [place] [employer] GUIDELINES RECOMMEND THAT WOMEN 40 YEARS OF AGE AND OLDER SHOULD HAVE A MAMMOGRAM EVERY YEAR. A REMINDER LETTER WILL BE SENT AT THE APPROPRIATE TIME. THIS FACILITY UTILIZES A REMINDER SYSTEM TO ENSURE ALL PATIENTS RECEIVE REMINDER NOTIFICATIONS AT THE APPROPRIATE TIME BASED ON THE RECOMMENDATIONS OF THIS EXAM. THIS INCLUDES REMINDERS FOR ROUTINE SCREENING MAMMOGRAMS, DIAGNOSTIC MAMMOGRAMS IN WHICH THE PATIENT IS ASKED TO RETURN FOR ADDITIONAL VIEWS, OR OTHER BREAST IMAGING INTERVENTIONS WHEN APPROPRIATE. THE PATIENT WILL BE PLACED IN THE APPROPRIATE REMINDER SYSTEM INCLUDING A REMINDER AT THE APPROPRIATE TIME FOR ANY PENDING ADDITIONAL VIEWS. TRANSCRIBED BY: ELECTRONICALLY SIGNED BY: Kieran Caputo MD Normal Not Available MR THORACIC SPINE WO CONTon 12-09-2023 MR THORACIC SPINE WO CONT MR THORACIC SPINE WO CONT MR THORACIC SPINE WO CONT: 12/07/2023 10:54 AM Clinical: Multiple falls. Known T12 compression fracture. EXAM: MRI THORACIC SPINE. Procedure: Multiplanar spin echo MRI thoracic spine performed. Comparison: none Findings: Vertebral body counting performed from the cervical C2 level caudally. There is T12 compression deformity with kyphoplasty with retropulsed bone fragment, without cord flattening. There is severe T7 compression deformity consistent with vertebral plana with moderate retropulsed bone fragment resulting in mild cord flattening. This is mildly low signal on T1 and mildly high signal on STIR sequence suggesting a subacute fracture. Other thoracic vertebral bodies are normal height and signal. Signal in the thoracic spinal cord is normal. No disc herniation or spinal stenosis seen. No epidural fluid collections or paraspinal soft tissue abnormality. Mild multilevel degenerative changes. Impression: * Severe T7 compression deformity is likely subacute with minimal edema. Retropulsed bone fragment with mild cord flattening. * T12 compression deformity with kyphoplasty Finalized by Jos Valadez MD on 12/09/2023 8:24 AM Normal [facility] XR SPINE LUMBAR 2 OR 3 VWSon 12-02-2023 XR SPINE LUMBAR 2 OR 3 VWS XR SPINE LUMBAR 2 OR 3 VWS XR SPINE LUMBAR 2 OR 3 VWS HISTORY: Chronic bilateral low back pain without sciatica. COMPARISON: none IMPRESSION: Preserved lumbar vertebral body heights. T12 fracture deformity status post cement augmentation. Grade 1 anterolisthesis L4 and L5. No substantial listhesis. Enlarged spinous processes, pseudoarthrosis at L1-2, L2-3. Moderate disc height loss at L4-5 and L5-S1. Degenerative changes sacral iliac joints. Finalized by Nic Light MD on 12/02/2023 12:59 PM Normal [facility] XR THORACIC SPINE 3 VIEWSon 11-25-2023 XR THORACIC SPINE 3 VIEWS XR - THORACIC SPINE 3 VIEWS Reason for exam: Chronic left sidedd thoracic back pain Views: 3 Findings: The alignment is normal. There is complete collapse of the T8 vertebral body associated with kyphosis, age-indeterminate. There is 50% collapse at L1 with a vertebroplasty. IMPRESSION: Complete collapse at T8 with kyphosis, age-indeterminate. Dictated on: 11/26/2023 8:52 AM This report has been electronically signed and approved by the interpreting Radiologist. Electronically Signed Cricket Tran M.D. 2023-11-26 08:53:07 Normal Not Available ACETAMINOPHENon 08-26-2022 Acetaminophen [Mass/Vol] ug/mL Critically low 10.0-30.0 [facility] Comment on above: Performed By: #### S ALYC, ETH, ACET, CMP, TSH #### [facility] [address] [place] [address] Dr. Harris Perdomo CBC AUTO DIFFon 08-26-2022 BASO # 0.0 103/ul Normal 0.0-0.1 [facility] Comment on above: Performed By: #### C BC #### [facility] [address] [place] [address] Dr. Harris Perdomo Basophils/100 WBC (Bld) 0.4 % Normal 0.2-2.0 [facility] Comment on above: Performed By: #### C BC #### [facility] [address] [place] [address] Dr. Harris Perdomo EO # 0.0 103/ul Normal 0.0-0.7 [facility] Comment on above: Performed By: #### C BC #### [facility] [address] [address] [address] Harris Perdomo Eosinophils/100 WBC (Bld) 0.2 % Critically low 0.9-7.0 [facility] Comment on above: Performed By: #### C BC #### [facility] [address] [place] [address] Dr. Harris Perdomo Erythrocyte distribution width (RBC) [Ratio] 12.1 % Normal 11.0-15.0 [facility] Comment on above: Performed By: #### C BC #### [facility] [address] [place] [address] Dr. Harris Perdomo Hematocrit (Bld) [Volume fraction] 39.3 % Normal 36.0-48.0 [facility] Comment on above: Performed By: #### C BC #### [facility] [address] [place] [address] Dr. Harris Perdomo Hemoglobin (Bld) [Mass/Vol] 13.3 g/dL Normal 12.0-16.0 [facility] Comment on above: Performed By: #### C BC #### [facility] [address] [place] [address] Dr. Harris Perdomo IG # 0.00 10e3/ul Normal 0.00-0.03 [facility] Comment on above: Performed By: #### C BC #### [facility] [address] [place] [address] Dr. Harris Perdomo IG % 0.0 % Normal 0.0-0.5 [facility] Comment on above: Performed By: #### C BC #### [facility] [address] [place] [address] Dr. Harris Perdomo LYMPH # 0.5 103/ul Critically low 1.2-3.8 [facility] Comment on above: Performed By: #### C BC #### [facility] [address] [place] [address] Dr. Harris Perdomo Lymphocytes/100 WBC (Bld) 10.2 % Critically low 20.5-60.0 [facility] Comment on above: Performed By: #### C BC #### [facility] [address] [place] [address] Dr. Harris Perdomo MANUAL DIFF REQ NO Normal [facility] Comment on above: Performed By: #### C BC #### [facility] [address] [place] [address] Dr. Harris Perdomo MCH (RBC) [Entitic mass] 30.6 pg Normal 26.7-34.0 [facility] Comment on above: Performed By: #### C BC #### [facility] [address] [place] [address] Dr. Harris Perdomo MCHC (RBC) [Mass/Vol] 33.8 g/dL Normal 29.9-35.2 [facility] Comment on above: Performed By: #### C BC #### [facility] [address] [place] [address] Dr. Harris Perdomo MCV (RBC) [Entitic vol] 90.6 fL Normal 81.0-99.0 [facility] Comment on above: Performed By: #### C BC #### [facility] [address] [address] [address] Harris Perdomo MONO # 0.3 103/ul Normal 0.3-0.8 [facility] Comment on above: Performed By: #### C BC #### [facility] [address] [place] [address] Dr. Harris Perdomo Monocytes/100 WBC (Bld) 6.2 % Normal 1.7-12.0 [facility] Comment on above: Performed By: #### C BC #### [facility] [address] [place] [address] Dr. Harris Perdomo NEUT # 4.3 103/ul Normal 1.4-6.5 [facility] Comment on above: Performed By: #### C BC #### [facility] [address] [place] [address] Dr. Harris Perdomo Neutrophils/100 WBC (Bld) 83.0 % Critically high 43.0-75.0 [facility] Comment on above: Performed By: #### C BC #### [facility] [address] [place] [address] Dr. Harris Perdomo Platelet mean volume (Bld) [Entitic vol] 8.3 fL Critically low 9.5-13.5 [facility] Comment on above: Performed By: #### C BC #### [facility] [address] [place] [address] Dr. Harris Perdomo PLT 251 103/ul Normal 150-450 [facility] Comment on above: Performed By: #### C BC #### [facility] [address] [place] [address] Dr. Harris Perdomo RBC 4.34 106/ul Normal 4.20-5.40 [facility] Comment on above: Performed By: #### C BC #### [facility] [address] [place] [address] Dr. Harris Perdomo WBC 5.2 103/ul Normal 4.0-11.0 [facility] Comment on above: Performed By: #### C BC #### [facility] [address] [place] [address] Dr. Harris Perdomo Covid-19 PCR ([facility])on 08-15 SARS-CoV-2 (COVID-19) RNA JOSE G+probe Ql (Unsp spec) Not detected Normal NOT DETECTED [facility] Comment on above: Result Comment: When [...] for this test is supported by the [place] of [employer] and Human Service's declaration that [...] longer be used). Performed By: #### C VDTB #### [facility] [address] [place] [address] Dr. Harris Perdomo DRUG SCREEN RAPID (URINE)on 08-26-2022 AMP Negative Normal NEGATIVE [facility] Comment on above: Performed By: #### E RUR, DRUGRPD #### [facility] [address] [place] [address] Dr. Harris Perdomo BAR Negative Normal NEGATIVE [facility] Comment on above: Performed By: #### E RUR, DRUGRPD #### [facility] [address] [place] [address] Dr. Harris Perdomo BUP Negative Normal NEGATIVE [facility] Comment on above: Performed By: #### E RUR, DRUGRPD #### [facility] [address] [place] [address] Dr. Harris Perdomo BZO Positive Abnormal NEGATIVE [facility] Comment on above: Performed By: #### E RUR, DRUGRPD #### [facility] [address] [place] [address] Dr. Harris Perdomo LAURA Negative Normal NEGATIVE [facility] Comment on above: Performed By: #### E RUR, DRUGRPD #### [facility] [address] [place] [address] Dr. Harris Perdomo CUT-OFFS SEE BELOW Normal [facility] Comment on above: Result Comment: AMP [...] #### E RUR, DRUGRPD #### [facility] [address] [place] [address] Dr. Harris Perdomo DRUG CUT HEADER DRUG CLASS TEST SYST EM CUT-OFF CONCENTRATIONS ARE FOLLOWS: Normal [facility] Comment on above: Performed By: #### E RUR, DRUGRPD #### [facility] [address] [place] [address] Dr. Harris Perdomo mAMP Negative Normal NEGATIVE [facility] Comment on above: Performed By: #### E RUR, DRUGRPD #### [facility] [address] [place] [address] Dr. Harris Perdomo MTD Negative Normal NEGATIVE [facility] Comment on above: Performed By: #### E RUR, DRUGRPD #### [facility] [address] [place] [address] Dr. Harris Perdomo OPI Negative Normal NEGATIVE [facility] Comment on above: Performed By: #### E RUR, DRUGRPD #### [facility] [address] [place] [address] Dr. Harris Perdomo OXY Negative Normal NEGATIVE [facility] Comment on above: Performed By: #### E RUR, DRUGRPD #### [facility] [address] [place] [address] Dr. Harris Perdomo PCP Negative Normal NEGATIVE [facility] Comment on above: Performed By: #### E RUR, DRUGRPD #### [facility] [address] [place] [address] Dr. Harris Perdomo PPX Negative Normal NEGATIVE [facility] Comment on above: Performed By: #### E RUR, DRUGRPD #### [facility] [address] [place] [address] Dr. Harris Perdomo TCA Negative Normal NEGATIVE [facility] Comment on above: Performed By: #### E RUR, DRUGRPD #### [facility] [address] [place] [address] Dr. Harris Perdomo THC Negative Normal NEGATIVE [facility] Comment on above: Performed By: #### E RUR, DRUGRPD #### [facility] [address] [place] [address] Dr. Harris Perdomo ER URINE PROFILEon 3 Bilirubin Ql (U) Negative Normal NEGATIVE [facility] Comment on above: Performed By: #### E RUR, DRUGRPD #### [facility] [address] [place] [address] Dr. Harris Perdomo Clarity (U) CLEAR Normal CLEAR [facility] Comment on above: Performed By: #### E RUR, DRUGRPD #### [facility] [address] [place] [address] Dr. Harris Perdomo Color (U) LT. YELLOW Normal YELLOW [facility] Comment on above: Performed By: #### E RUR, DRUGRPD #### [facility] [address] [place] [address] Dr. Harris SAMPSON A micrscopic examina tion will be performed if indicated. Normal [facility] Comment on above: Performed By: #### E RUR, DRUGRPD #### [facility] [address] [place] [address] Dr. Harris Perdomo Glucose Ql (U) Negative Normal NEGATIVE [facility] Comment on above: Performed By: #### E RUR, DRUGRPD #### [facility] [address] [place] [address] Dr. Harris Perodmo Hemoglobin Ql (U) Negative Normal NEGATIVE [place] Comment on above: Performed By: #### E RUR, DRUGRPD #### [facility] [address] [place] [address] Dr. Harris Perdomo Ketones Ql (U) Negative Normal NEGATIVE [facility] Comment on above: Performed By: #### E RUR, DRUGRPD #### [facility] [address] [place] [address] Dr. Harris Perdomo LEUKOCYTES Negative Normal NEGATIVE [facility] Comment on above: Performed By: #### E RUR, DRUGRPD #### [facility] [address] [place] [address] Dr. Harris Perdomo Nitrite Ql (U) Negative Normal NEGATIVE [facility] Comment on above: Performed By: #### E RUR, DRUGRPD #### [facility] [address] [place] [address] Dr. Harris Perdomo pH (U) 6.5 [pH] Normal 5-9 [facility] Comment on above: Performed By: #### E RUR, DRUGRPD #### [facility] [address] [place] [address] Dr. Harris Perdomo SPEC GRAVITY <=1.005 Abnormal 1.005-<=1.[address] [place] [address] Comment on above: Performed By: #### E RUR, DRUGRPD #### [facility] [address] [place] [address] Dr. Harris Perdomo UA PROTEIN Negative Normal NEGATIVE/ TRACE [facility] Comment on above: Performed By: #### E RUR, DRUGRPD #### [facility] [address] [place] [address] Dr. Harris Perdomo UR MICRO IND NOT INDICATED Normal [facility] Comment on above: Performed By: #### E RUR, DRUGRPD #### [facility] [address] [address] [address] Harris Perdomo Urobilinogen Qn (U) 0.2 {Baylee'U}/dL Normal 0.2 - 1. 0 [facility] Comment on above: Performed By: #### E ANEGLIQUE DRUGRPD #### [facility] [address] [address] [address] Harris Perdomo ETHANOL (BLD ALC)on 08-27-19 23 ALC NOTE NOTE: 80 mg/dl is th e legal limit for a blood alcohol level Normal [facility] Comment on above: Performed By: #### S ALYC, ETH, ACET, CMP, TSH #### [facility] [address] [place] [address] Dr. Harris Perdomo Ethanol [Mass/Vol] mg/dL Normal [facility] Comment on above: Performed By: #### S ALYC, ETH, ACET, CMP, TSH #### [facility] [address] [place] [address] Dr. Harris Perdomo PROF 14(COMP METB)on 023 Albumin [Mass/Vol] 3.8 g/dL Normal 3.4-5.0 [facility] Comment on above: Performed By: #### S ALYC, ETH, ACET, CMP, TSH #### [facility] [address] [place] [address] Dr. Harris Perdomo Albumin/Globulin [Mass ratio] 1.2 {ratio} Normal [facility] Comment on above: Performed By: #### S ALYC, ETH, ACET, CMP, TSH #### [facility] [address] [place] [address] Dr. Harris Perdomo ALP [Catalytic activity/Vol] 103 U/L Normal 46-116 [facility] Comment on above: Performed By: #### S ALYC, ETH, ACET, CMP, TSH #### [facility] [address] [place] [address] Dr. Harris Perdomo ALT [Catalytic activity/Vol] 6 U/L Critically low 14-59 [facility] Comment on above: Performed By: #### S ALYC, ETH, ACET, CMP, TSH #### [facility] [address] [address] [address] Harris Perdomo Anion gap [Moles/Vol] 12.3 mmol/L Normal [facility] Comment on above: Performed By: #### S ALYC, ETH, ACET, CMP, TSH #### [facility] [address] [place] [address] Dr. Harris Perdomo AST [Catalytic activity/Vol] 14 U/L Critically low 15-37 [facility] Comment on above: Performed By: #### S ALYC, ETH, ACET, CMP, TSH #### [facility] [address] [address] [address] Harris Perdomo Bilirubin [Mass/Vol] 0.4 mg/dL Normal 0.2-1.0 [facility] Comment on above: Performed By: #### S ALYC, ETH, ACET, CMP, TSH #### [facility] [address] [place] [address] Dr. Harris Perdomo Calcium [Mass/Vol] 9.1 mg/dL Normal 8.5-10.1 [facility] Comment on above: Performed By: #### S ALYC, ETH, ACET, CMP, TSH #### [facility] [address] [place] [address] Dr. Harris Perdomo Chloride [Moles/Vol] 106 mmol/L Normal 98-107 [facility] Comment on above: Performed By: #### S ALYC, ETH, ACET, CMP, TSH #### [facility] [address] [place] [address] Dr. Harris Perdomo CO2 [Moles/Vol] 28.7 mmol/L Normal 21.0-32.0 [facility] Comment on above: Performed By: #### S ALYC, ETH, ACET, CMP, TSH #### [facility] [address] [place] [address] Dr. Harris Perdomo Creatinine [Mass/Vol] 0.65 mg/dL Normal 0.55-1.02 [facility] Comment on above: Performed By: #### S ALYC, ETH, ACET, CMP, TSH #### [facility] [address] [address] [address] Harris Perdomo EGFR-AF SURINAMESE >60 Normal >=60 [facility] Comment on above: Performed By: #### S ALYC, ETH, ACET, CMP, TSH #### [facility] [address] [address] [address] Harris Perdomo EGFR-NON AF SURINAMESE >60 Normal >=60 [facility] Comment on above: Performed By: #### S ALYC, ETH, ACET, CMP, TSH #### [facility] [address] [address] [address] Harris Perdomo Globulin (S) [Mass/Vol] 3.2 g/dL Normal [facility] Comment on above: Performed By: #### S ALYC, ETH, ACET, CMP, TSH #### [facility] [address] [place] [address] Dr. Harris Perdomo Glucose [Mass/Vol] 99 mg/dL Normal 74-106 [facility] Comment on above: Performed By: #### S ALYC, ETH, ACET, CMP, TSH #### [facility] [address] [address] [address] Harris Perdomo Potassium [Moles/Vol] 4.0 mmol/L Normal 3.5-5.1 [facility] Comment on above: Performed By: #### S ALYC, ETH, ACET, CMP, TSH #### [facility] [address] [address] [address] Harris Perdomo Protein [Mass/Vol] 7.0 g/dL Normal 6.4-8.2 [facility] Comment on above: Performed By: #### S ALYC, ETH, ACET, CMP, TSH #### [facility] [address] [place] [address] Dr. Harris Perdomo Sodium [Moles/Vol] 143 mmol/L Normal 136-145 [facility] Comment on above: Performed By: #### S ALYC, ETH, ACET, CMP, TSH #### [facility] [address] [place] [address] Dr. Harris Perdomo Urea nitrogen [Mass/Vol] 20.0 mg/dL Critically high 7.0-18.0 [facility] Comment on above: Performed By: #### S ALYC, ETH, ACET, CMP, TSH #### [facility] [address] [address] [address] Harris Perdomo Urea nitrogen/Creatinine [Mass ratio] 30.8 mg/mg Normal [facility] Comment on above: Performed By: #### S ALYC, ETH, ACET, CMP, TSH #### [facility] [address] [address] [address] Harris Perdomo SALICYLATEon 08-26-2022 SALICYLATE <2.8 Normal <=19.9 [facility] Comment on above: Performed By: #### S ALYC, ETH, ACET, CMP, TSH #### [facility] [facility] [address] [address] [address] Harris Perdomo TSHon 08-26-2022 TSH 1.224 uIU/mL Normal 0.358-3.740 [facility] Comment on above: Performed By: #### S ALYC, ETH, ACET, CMP, TSH #### [facility] [address] [address] [address] Harris Perdomo XR Knee 3 Views Lefton 02-09 XR Knee 3 Views Left FINDINGS: Mild bilateral patellofemoral joint space loss. No cortical or subchondral fracture. No significant osteophyte formation. Small left sided patellofemoral effusion. IMPRESSION: 1. 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 Report reported and signed by Kieran Caputo on 02/09/2022 1429 Normal [facility] Benefits Coordinator XR Knee 3 Views Righton 01-16 XR Knee 3 Views Right Please see left knee report. Report reported and signed by Kieran Caputo on 02/09/2022 1430 Normal [facility] Benefits Coordinator XR Humerus Righton XR Humerus Right HISTORY: [...] Caputo on 09/11/2021 1054 Normal [facility] Lipid Panelon 05-14-2021 Cholesterol [Mass/Vol] 199 mg/dL Normal 125-200 [facility] Comment on above: Result Comment: Low risk < 200mg/dL Borderline risk 201-239 mg/dl High risk > or equal to 240 Performed By: #### L IPD #### [facility] [address] [id number] Cholesterol in HDL [Mass/Vol] 51 mg/dL Normal >40 [facility] Comment on above: Result Comment: High Cardiovascular Risk HDL <40 mg/dL Low Cardiovascular Risk HDL > or equal to 60 mg/dl Performed By: #### L IPD #### [facility] [address], [place] [id number] Cholesterol in LDL [Mass/Vol] 112 mg/dL Normal [facility] Comment on above: Result Comment: LDL ATP III CLASSIFICATION LDL less than 100 mg/dl Optimal LDL 100-129 mg/dl Near or above optimal LDL 130-159 Borderline high LDL 160-189 High LDL greater than 189 mg/dl Very High Performed By: #### L IPD #### [facility] [address] [place], [place] [id number] Cholesterol in VLDL [Mass/Vol] 36 mg/dL Normal [facility] Comment on above: Performed By: #### L IPD #### [facility] [address] [id number] Cholesterol.total/Ch olesterol in HDL [Mass ratio] 4 {ratio} Normal [facility] Comment on above: Performed By: #### L IPD #### [facility] [address], [place] [id number] Triglyceride [Mass/Vol] 178 mg/dL High 30-150 [facility] Comment on above: Result Comment: TRIG ATPIII CLASSIFICATIONS TRIG less than 150 mg/dl Normal TRIG 150-199 mg/dl Borderline High TRIG 200-500 mg/dl High TRIG greather than 500 mg/dl Very High Performed By: #### L IPD #### [facility] [address] [id number] Q - QUESTASSURED(TM) 25-OH V IT D(D2D3)LC/MS/MSon 05-14-2021 VITAMIN D, 25-OH, D2 <4 Normal [facility] Comment on above: Order Comment: [facility] Testing performed at: [facility], [address], [place], [place], , Composer Teaching Artist: Andrey Lott M.D.,PhD [facility] Collection Date/Time: [id number] [facility] Results Received Date/Time: [facility] Reported Date/Time: Result Comment: This test was developed and its analytical performance characteristics have been determined by [facility] [place], [place]. It has not been cleared or approved by the U.S. Food and Drug Administration. This assay has been validated pursuant to the CLIA regulations and is used for clinical purposes. Performed By: #### [id number] #### [facility] [address] [place] [address] VITAMIN D, 25-OH, D3 51 ng/mL Normal [facility] Comment on above: Order Comment: [facility] Testing performed at: [facility], [address], [place], [place], , Composer Teaching Artist: Andrey Lott M.D.,PhD [facility] Collection Date/Time: [id number] [facility] Results Received Date/Time: [id number] [facility] Reported Date/Time: Result Comment: This test was developed and its analytical performance characteristics have been determined by [facility] [place], [place]. It has not been cleared or approved by the U.S. Food and Drug Administration. This assay has been validated pursuant to the CLIA regulations and is used for clinical purposes. Performed By: #### [id number] #### [facility] [address] [place] [address] VITAMIN D, 25-OH, TOTAL 51 ng/mL Normal 30-100 [facility] Comment on above: Order Comment: [facility] Testing performed at: [facility], [facility], [address], [place], [place], , Composer Teaching Artist: Andrey Lott M.D.,PhD [facility] Collection Date/Time: [facility] Results Received Date/Time: [id number] [facility] Reported Date/Time: Result Comment: Cherelle min [...] 2011;96(7):1911-30. For additional information, please refer to http://education.ePub Direct/faq/SWT908 (This link is being provided for informational/ educational purposes only.) Performed By: #### [id number] #### [facility] [address] [place] [address] SCREENING MAMMOGRAM W/MAKENNA, BILATERAL*on 05-14-2021 SCREENING MAMMOGRAM [...] VERY IMPORTANT TO YOUR HEALTH. THE CURRENT SURINAMESE COLLEGE OF RADIOLOGY AND NATIONAL COMPREHENSIVE CANCER NETWORK GUIDELINES RECOMMENDS ANNUAL MAMMOGRAPHY BEGINNING AT AGE 39. THIS FACILITY USES A REMINDER SYSTEM TO ENSURE ALL PATIENTS RECEIVE REMINDER NOTIFICATIONS AT THE APPROPRIATE TIME BASED ON THE RECOMMENDATIONS OF THIS EXAM. Report reported and signed by Kieran Caputo on 05/14/2021 1337 Normal [facility] Benefits Coordinator CNOVSPon 02-04-2017 CNOVSP Visit (SP) Office (HEMAC[facility]) SARAH GREGGJOSE Johnson ([id number]) 1955 FDate Time Provider Department02/04/17 2:00 PM RICARDO CARRASCO HEMACL During your visit today, we recorded the following information about you: Temperature Pulse Respiration Blood pressure 98 degrees 85/minute 18/minute 115/69 Weight Height 44 kg 1.549 mMINDY LUTHER PANDA PA-C 02/04/2017 1:50 PM SignedPatient: Mirian Johnson Alma DeliarDOB: 1955Race: Katya Complaint:Endometrial CancerHPI: Mirian is here for follow up. She had endometrial cancer diagnosed [id number] and treated with chemotherapy and radiation. She [...] has had 2 CTs to monitorthis [place] [facility] and she states it has been stable.Current Medications:Current Outpatient Prescriptions:carbidopa- levodopa (SINEMET 25-100) 25-100 mg per tablet Disp: [...] habitsGU: No history of dysuria, frequency or incontinenceMUSCULOSKELE KAELYN: Left arm/shoulder pain, tremor left handSKIN: Negative [...] tremor to left handImaging Studies: CXR at [facility] 01/19/2017 was negativeASSESSMENT/PLAN: 1. 182.0 Endometrial cancerShe has no evidence of disease recurrence. She is now 12 years out from hercancer and she will follow up with her PCP for yearly chest x-rays. 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 She had endometrial cancer diagnosedin 2004 and treated with chemotherapy and radiation. [facility] for her [...] states it has been stable.Current Medications:Current Outpatient Prescriptions:carbidopa- levodopa (SINEMET 25-100) 25-100 mg per tablet Disp: [...] habitsGU: No history of dysuria, frequency or incontinenceMUSCULOSKELE KAELYN: Left arm/shoulder pain, tremor left handSKIN: Negative [...] tremor to left handImaging Studies: CXR at [facility] 01/19/2017 was negativeASSESSMENT/PLAN: 1. 182.0 Endometrial cancerShe has no evidence of disease recurrence. She is now 12 years out fromher cancer and she will follow up with her PCP for yearly chest x-rays. MIS PANDA PA-C Normal [facility] Remote CBCDIF (for [facility] use o nly)on 02-04-2017 Abs Baso 0.01 k/uL Normal 0.00-0.10 [facility] Abs Piatt 0.27 k/uL Normal 0.00-0.86 [facility] Abs Neut 2.36 k/uL Normal 1.45-7.50 [facility] Basophils/100 WBC Auto (Bld) 0.3 % Normal [facility] Eosinophils 0.03 10*3/uL Normal 0.00-0.45 [facility] Eosinophils/100 leukocytes 0.9 % Normal [facility] Erythrocyte distribution width Auto Ratio (RBC) 12.8 % Normal 11.5-15.0 [facility] Erythrocytes (RBC) 4.14 10*6/uL Normal 3.90-5.20 [facility] Hematocrit (HCT) 37.9 % Normal 36.0-46.0 [facility] Hemoglobin mass conc (Bld) 12.6 g/dL Normal 11.5-15.5 [facility] Lymphocytes 0.76 10*3/uL Low 1.00-4.00 [facility] Lymphocytes/100 leukocytes 22.2 % Normal [facility] MCH 30.4 pG Normal 26.0-34.0 [facility] MCHC mass conc (RBC) 33.2 g/dL Normal 30.5-36.0 [facility] MCV 91.5 fL Normal 80.0-100.0 [facility] Monocytes/100 leukocytes 7.9 % Normal [facility] Neutrophils/100 WBC Auto (Bld) 68.7 % Normal [facility] Platelet mean volume (PMV) 8.7 fL Low 9.0-12.7 [facility] Platelets 198 10*3/uL Normal 150-400 [facility] WBC (Leukocytes) 3.43 10*3/uL Low 3.70-11.00 [facility] Vital Signs Date Time Vital Sign Value Performing Clinician Facility 05-26-2024 10:54-0500 Body height 154.9 cm Shea Vogel MD Work Phone: [facility] 05-26-2024 10:54-0500 Body mass index (BMI) [Ratio] 16.59 kg/m2 Shea Vogel MD Work Phone: [facility] 05-26-2024 10:54-0500 Body weight 39.83 kg Shea Vogel MD Work Phone: [facility] 05-26-2024 10:54-0500 Diastolic blood pressure 70 mm[Hg] Shea Vogel MD Work Phone: [facility] 05-26-2024 10:54-0500 Heart rate 112 /min Shea Vogel MD Work Phone: [facility] 05-26-2024 10:54-0500 Respiratory rate 16 /min Shea Vogel MD Work Phone: [facility] 05-26-2024 10:54-0500 SaO2% (BldA) [Mass fraction] 98 % Shea Vogel MD Work Phone: [facility] 05-26-2024 10:54-0500 Systolic blood pressure 116 mm[Hg] Shea Vogel MD Work Phone: [facility] 05-18-2024 13:58-0500 Body mass index (BMI) [Ratio] 15.68 kg/m2 Shashi Sadaf-Nossek TRAFFIC INVESTIGATOR-GLASS CUTTING MACHINE FEEDER Work Phone: [facility] 05-18-2024 13:58-0500 Body weight 37.65 kg Shashi Sadaf-Nossek TRAFFIC INVESTIGATOR-GLASS CUTTING MACHINE FEEDER Work Phone: [facility] 05-18-2024 13:58-0500 Diastolic blood pressure 82 mm[Hg] Shashi Sadaf-Nossek TRAFFIC INVESTIGATOR-GLASS CUTTING MACHINE FEEDER Work Phone: [facility] 05-18-2024 13:58-0500 Heart rate 99 /min Shashi Sadaf-Nossek TRAFFIC INVESTIGATOR-GLASS CUTTING MACHINE FEEDER Work Phone: [facility] 05-18-2024 13:58-0500 SaO2% (BldA) [Mass fraction] 99 % Shashi Sadaf-Nossek TRAFFIC INVESTIGATOR-GLASS CUTTING MACHINE FEEDER Work Phone: [facility] 05-18-2024 13:58-0500 Systolic blood pressure 120 mm[Hg] Shashi Sadaf-Nossek TRAFFIC INVESTIGATOR-GLASS CUTTING MACHINE FEEDER Work Phone: [facility] 04-03-2024 13:46-0500 Body mass index (BMI) [Ratio] 15.15 kg/m2 Shashi Sadaf-Nossek TRAFFIC INVESTIGATOR-GLASS CUTTING MACHINE FEEDER Work Phone: [facility] 04-03-2024 13:46-0500 Body weight 36.38 kg Shashi Sadaf-Nossek TRAFFIC INVESTIGATOR-GLASS CUTTING MACHINE FEEDER Work Phone: [facility] 04-03-2024 13:46-0500 Diastolic blood pressure 82 mm[Hg] Shashi Sadaf-Nossek TRAFFIC INVESTIGATOR-GLASS CUTTING MACHINE FEEDER Work Phone: [facility] 04-03-2024 13:46-0500 Heart rate 110 /min Shashi Sadaf-Nossek TRAFFIC INVESTIGATOR-GLASS CUTTING MACHINE FEEDER Work Phone: [facility] 04-03-2024 13:46-0500 Systolic blood pressure 118 mm[Hg] Shashi Sdaaf-Nossek TRAFFIC INVESTIGATOR-GLASS CUTTING MACHINE FEEDER Work Phone: [facility] 03-15-2024 10:22-0400 Body height 152.4 cm Ene Mckoy TRAFFIC INVESTIGATOR-UNDER SEAL OPERATOR Work Phone: [facility] 03-15-2024 10:22-0400 Body mass index (BMI) [Ratio] 14.45 kg/m2 Ene Mckoy TRAFFIC INVESTIGATOR-UNDER SEAL OPERATOR Work Phone: [facility] 03-15-2024 10:22-0400 Body weight 33.57 kg Ene Mckoy TRAFFIC INVESTIGATOR-UNDER SEAL OPERATOR Work Phone: [facility] 03-15-2024 10:22-0400 Diastolic blood pressure 66 mm[Hg] Ene Mckoy TRAFFIC INVESTIGATOR-UNDER SEAL OPERATOR Work Phone: [facility] 03-15-2024 10:22-0400 Systolic blood pressure 100 mm[Hg] Ene Mckoy TRAFFIC INVESTIGATOR-UNDER SEAL OPERATOR Work Phone: [facility] 03-08-2024 08:46-0400 Body height 154.9 cm Shea Vogel MD Work Phone: [facility] 03-08-2024 08:46-0400 Body mass index (BMI) [Ratio] 14.06 kg/m2 Shea Vogel MD Work Phone: [facility] 03-08-2024 08:46-0400 Body weight 33.75 kg Shea Vogel MD Work Phone: [facility] 03-08-2024 08:46-0400 Diastolic blood pressure 62 mm[Hg] Shea Vogel MD Work Phone: [facility] 03-08-2024 08:46-0400 Heart rate 103 /min Shea Vogel MD Work Phone: [facility] 03-08-2024 08:46-0400 Respiratory rate 20 /min Shea Vogel MD Work Phone: [facility] 03-08-2024 08:46-0400 SaO2% (BldA) [Mass fraction] 99 % Shea Vogel MD Work Phone: [facility] 03-08-2024 08:46-0400 Systolic blood pressure 102 mm[Hg] Shea Vogel MD Work Phone: [facility] 03-07-2024 09:16-0400 Body height 154.9 cm Willian Delacruz MD Work Phone: [facility] 03-07-2024 09:16-0400 Body mass index (BMI) [Ratio] 16.61 kg/m2 Willian Delacruz MD Work Phone: [facility] 03-07-2024 09:16-0400 Body weight 39.87 kg Willian Delacruz MD Work Phone: [facility] 03-07-2024 09:16-0400 Diastolic blood pressure 75 mm[Hg] Willian Delacruz MD Work Phone: [facility] 03-07-2024 09:16-0400 Heart rate 106 /min Willian Delacruz MD Work Phone: [facility] 03-07-2024 09:16-0400 Systolic blood pressure 136 mm[Hg] Willian Delacruz MD Work Phone: [facility] 02-23-2024 09:10-0400 Body height 154.9 cm Shea Vogel MD Work Phone: [facility] 02-23-2024 09:10-0400 Body mass index (BMI) [Ratio] 15.3 kg/m2 Shea Vogel MD Work Phone: [facility] 02-23-2024 09:10-0400 Body weight 36.74 kg Shea Vogel MD Work Phone: [facility] 02-23-2024 09:10-0400 Diastolic blood pressure 72 mm[Hg] Shea Vogel MD Work Phone: [facility] 02-23-2024 09:10-0400 Heart rate 62 /min Shea Vogel MD Work Phone: [facility] 02-23-2024 09:10-0400 Respiratory rate 18 /min Shea Vogel MD Work Phone: [facility] 02-23-2024 09:10-0400 SaO2% (BldA) [Mass fraction] 97 % Shea Vogel MD Work Phone: [facility] 02-23-2024 09:10-0400 Systolic blood pressure 116 mm[Hg] Shea Vogel MD Work Phone: [facility] 02-16-2024 11:15-0400 Body mass index (BMI) [Ratio] 15.57 kg/m2 Shea Vogel MD Work Phone: [facility] 02-16-2024 11:15-0400 Body weight 37.38 kg Shea Vogel MD Work Phone: [facility] 02-16-2024 11:15-0400 Diastolic blood pressure 72 mm[Hg] Shea Vogel MD Work Phone: [facility] 02-16-2024 11:15-0400 Heart rate 81 /min Shea Vogel MD Work Phone: [facility] 02-16-2024 11:15-0400 Respiratory rate 20 /min Shea Vogel MD Work Phone: [facility] 02-16-2024 11:15-0400 SaO2% (BldA) [Mass fraction] 99 % Shea Vogel MD Work Phone: [facility] 02-16-2024 11:15-0400 Systolic blood pressure 126 mm[Hg] Shea Vogel MD Work Phone: [facility] 02-01-2024 13:20-0400 Body height 154.9 cm Shea Vogel MD Work Phone: [facility] 02-01-2024 13:20-0400 Body mass index (BMI) [Ratio] 16.1 kg/m2 Shea Vogel MD Work Phone: [facility] 02-01-2024 13:20-0400 Body weight 38.65 kg Shea Vogel MD Work Phone: [facility] 02-01-2024 13:20-0400 Diastolic blood pressure 64 mm[Hg] Shea Vogel MD Work Phone: [facility] 02-01-2024 13:20-0400 Heart rate 86 /min Shea Vogel MD Work Phone: [facility] 02-01-2024 13:20-0400 Respiratory rate 20 /min Shea Vogel MD Work Phone: [facility] 02-01-2024 13:20-0400 SaO2% (BldA) [Mass fraction] 99 % Shea Vogel MD Work Phone: [facility] 02-01-2024 13:20-0400 Systolic blood pressure 112 mm[Hg] Shea Vogel MD Work Phone: [facility] 01-24-2024 14:56-0400 Body mass index (BMI) [Ratio] 16.25 kg/m2 Shashi Talavera-Jesse TRAFFIC INVESTIGATOR-GLASS CUTTING MACHINE FEEDER Work Phone: [facility] 01-24-2024 14:56-0400 Body weight 39.01 kg Shashi Talavera-Nossek TRAFFIC INVESTIGATOR-GLASS CUTTING MACHINE FEEDER Work Phone: [facility] 01-24-2024 14:56-0400 Diastolic blood pressure 76 mm[Hg] Shashi Servin TRAFFIC INVESTIGATOR-GLASS CUTTING MACHINE FEEDER Work Phone: [facility] 01-24-2024 14:56-0400 Heart rate 88 /min Shashi Servin TRAFFIC INVESTIGATOR-GLASS CUTTING MACHINE FEEDER Work Phone: [facility] 01-24-2024 14:56-0400 Systolic blood pressure 116 mm[Hg] Shashi Servin TRAFFIC INVESTIGATOR-GLASS CUTTING MACHINE FEEDER Work Phone: [facility] 08-18-2023 09:52-0400 Diastolic blood pressure 73 mm[Hg] Eve Verhoff PA-C Work Phone: [facility] 08-18-2023 09:52-0400 Respiratory rate 18 /min Eve Verhoff PA-C Work Phone: [facility] 08-18-2023 09:52-0400 SaO2% (BldA) [Mass fraction] 96 % Eve Verhoff PA-C Work Phone: [facility] 08-18-2023 09:52-0400 Systolic blood pressure 123 mm[Hg] Eve Verhoff PA-C Work Phone: [facility] 07-21-2023 10:44-0500 Body height 154.9 cm Eve Verhoff PA-C Work Phone: [facility] 07-21-2023 10:44-0500 Body mass index (BMI) [Ratio] 21.92 kg/m2 Eve Verhoff PA-C Work Phone: [facility] 07-21-2023 10:44-0500 Body weight 52.62 kg Eve Verhoff PA-C Work Phone: [facility] 07-21-2023 10:44-0500 Diastolic blood pressure 63 mm[Hg] Eve Verhoff PA-C Work Phone: [facility] 07-21-2023 10:44-0500 Heart rate 79 /min Eve Verhoff PA-C Work Phone: [facility] 07-21-2023 10:44-0500 Respiratory rate 18 /min Eve Kameronhoff PA-C Work Phone: [facility] 07-21-2023 10:44-0500 SaO2% (BldA) [Mass fraction] 97 % Eve Verhoff PA-C Work Phone: [facility] 07-21-2023 10:44-0500 Systolic blood pressure 119 mm[Hg] Eve Verhoff PA-C Work Phone: [facility] 07-01-2023 13:36-0500 Body height 154.9 cm Saira Weston BUTTERMAKER Work Phone: [facility] 07-01-2023 13:36-0500 Body mass index (BMI) [Ratio] 21.92 kg/m2 Saira Weston BUTTERMAKER Work Phone: [facility] 07-01-2023 13:36-0500 Body weight 52.62 kg Saira Weston BUTTERMAKER Work Phone: [facility] 07-01-2023 13:36-0500 Diastolic blood pressure 82 mm[Hg] Saira Weston BUTTERMAKER Work Phone: [facility] 07-01-2023 13:36-0500 Heart rate 78 /min Saira Weston BUTTERMAKER Work Phone: [facility] 07-01-2023 13:36-0500 Respiratory rate 18 /min Saira Weston BUTTERMAKER Work Phone: [facility] 07-01-2023 13:36-0500 SaO2% (BldA) [Mass fraction] 98 % Saira Weston BUTTERMAKER Work Phone: [facility] 07-01-2023 13:36-0500 Systolic blood pressure 128 mm[Hg] Saira Weston BUTTERMAKER Work Phone: [facility] Healthcare Encounters Encounter Date Encounter Type Care Provider Facility Start: 05-26-2024 End: 05-26-2024 Bamboo flowsheet Shea Vogel MD Work Phone: [facility] Start: 05-26-2024 End: 05-26-2024 Bamboo flowsheet Shea Vogel MD Work Phone: [facility] Start: 05-26-2024 End: 05-26-2024 Office outpatient visit 25 minutes Shea Vogel MD Work Phone: [facility] Comment on above: Parkinson's disease without dyskinesia or fluctuating manifestations (CMS/HCC) (Primary Dx); Major depressive disorder, recurrent, severe with psychotic symptoms (HCC) (CMS/HCC); Malignant neoplasm of endometrium (CMS/HCC); Unspecified dementia, unspecified severity, without behavioral disturbance, psychotic disturbance, mood disturbance, and anxiety (CMS/HCC); Neuropathy Start: 05-18-2024 End: 05-18-2024 Bamboo flowsheet Shashi Delgado Sadaf-Nossek TRAFFIC INVESTIGATOR-GLASS CUTTING MACHINE FEEDER Work Phone: [facility] Start: 05-18-2024 End: 05-18-2024 Bamboo flowsheet Shashi M Sadaf-Nossek TRAFFIC INVESTIGATOR-GLASS CUTTING MACHINE FEEDER Work Phone: [facility] Start: 05-18-2024 End: 05-18-2024 Office outpatient visit 40 minutes Shashi Delgado Sadaf-Nossek TRAFFIC INVESTIGATOR-GLASS CUTTING MACHINE FEEDER Work Phone: [facility] Comment on above: Generalized anxiety disorder (CMS/HCC); Moderate episode of recurrent major depressive disorder (CMS/HCC); Panic disorder with agoraphobia (CMS/HCC) Start: 05-18-2024 End: 05-18-2024 ambulatory SHASHI Natarajan SADAF-NOSSEK Not Available Start: 04-03-2024 End: 04-03-2024 Bamboo flowsheet Shashi Delgado Sadaf-Nossek TRAFFIC INVESTIGATOR-GLASS CUTTING MACHINE FEEDER Work Phone: [facility] Start: 04-03-2024 End: 04-03-2024 Bamboo flowsheet Shashi Delgado Sadaf-Nossek TRAFFIC INVESTIGATOR-GLASS CUTTING MACHINE FEEDER Work Phone: [facility] Start: 04-03-2024 End: 04-03-2024 Office outpatient visit 40 minutes Shashi M Sadaf-Nossek TRAFFIC INVESTIGATOR-GLASS CUTTING MACHINE FEEDER Work Phone: [facility] Comment on above: Recurrent major depr essive disorder, in partial remission (HCC) (CMS/HCC) (Primary Dx); Generalized anxiety disorder (CMS/HCC); Insomnia, unspecified type Start: 04-03-2024 End: 04-03-2024 ambulatory SHASHI SERVIN Not Available Start: 03-23-2024 End: 03-23-2024 ambulatory [place] [facility] Start: 03-23-2024 End: 03-23-2024 ambulatory [facility] Start: 03-15-2024 End: 03-15-2024 Telephone encounter [facility] Work Phone: [facility] Start: 03-15-2024 End: 03-15-2024 ambulatory [facility] Start: 03-15-2024 End: 03-15-2024 Office outpatient new 60 minutes Ene E Glenmoore TRAFFIC INVESTIGATOR-UNDER SEAL OPERATOR Work Phone: [facility] Comment on above: Weight loss (Primary Dx); Nausea and vomiting, unspecified vomiting type; Diarrhea of presumed infectious origin Start: 03-08-2024 End: 03-08-2024 Bamboo flowsheet Shea Vogel MD Work Phone: [facility] Start: 03-08-2024 End: 03-08-2024 Bamboo flowsheet Shea Vogel MD Work Phone: [facility] Start: 03-08-2024 End: 03-08-2024 Emergency department patient visit SHEA VOGEL [facility] Start: 03-08-2024 End: 03-08-2024 Office outpatient visit 25 minutes Shea Vogel MD Work Phone: [facility] Comment on above: Oropharyngeal dyspha marshall (Primary Dx); Weight loss Start: 03-08-2024 End: 03-08-2024 ambulatory SHEA VOGEL Not Available Start: 03-07-2024 End: 03-07-2024 Office outpatient visit 40 minutes Willian Delacruz MD Work Phone: [facility] Comment on above: Parkinson's disease without dyskinesia, with fluctuating manifestations (CMS-HCC) (Primary Dx); Gait instability; Muscle cramping; Chemotherapy-induced neuropathy (CMS-HCC); PLMD (periodic limb movement disorder); Anxiety; Depression, unspecified depression type; History of malignant neoplasm of endometrium; History of syncope; Panic attacks; Lumbar radiculopathy; Falls, sequela; Lumbar spondylosis; Forgetfulness; Leg cramping Start: 03-07-2024 End: 03-07-2024 ambulatory [facility] Start: 02-23-2024 End: 02-23-2024 Bamboo flowsheet Shea Vogel MD Work Phone: [facility] Start: 02-23-2024 End: 02-23-2024 Bamboo flowsheet Shea Vogel MD Work Phone: [facility] Start: 02-23-2024 End: 02-23-2024 Office outpatient visit 15 minutes Shea Vogel MD Work Phone: [facility] Comment on above: Acute cystitis witho ut hematuria (Primary Dx); Weight loss; Panic attack (CMS/HCC); Generalized anxiety disorder (CMS/HCC); Adjustment disorder with anxious mood (CMS/HCC); Open-angle glaucoma, mild stage, unspecified laterality, unspecified open-angle glaucoma type (CMS/HCC); Major depressive disorder, single episode, moderate (HCC) (CMS/HCC) Start: 02-23-2024 End: 02-23-2024 Orders Only Shea Vogel MD Work Phone: [facility] Comment on above: Abnormal gallbladder ultrasound (Primary Dx); Abdominal pain with vomiting; Weight loss Start: 02-16-2024 End: 02-16-2024 Office outpatient visit 25 minutes Shea Vogel MD Work Phone: [facility] Comment on above: Chronic gastritis wi thout bleeding, unspecified gastritis type (Primary Dx); Urinary incontinence, unspecified type; Weight loss; Hematuria, unspecified type Start: 02-16-2024 End: 02-16-2024 ambulatory SHEA VOGEL Not Available Start: 02-08-2024 End: 02-08-2024 Telephone encounter Shea Vogel MD Work Phone: [facility] Start: 02-07-2024 End: 02-07-2024 Telephone encounter Shea Vogel MD Work Phone: [facility] Start: 02-01-2024 End: 02-01-2024 Office outpatient visit 25 minutes Shea Vogel MD Work Phone: [facility] Comment on above: Chronic gastritis wi thout bleeding, unspecified gastritis type (Primary Dx); Encounter for immunization Start: 02-01-2024 End: 02-01-2024 ambulatory SHEA VOGEL Not Available Start: 01-24-2024 End: 01-24-2024 Office outpatient visit 40 minutes Shashi Servin TRAFFIC INVESTIGATOR-GLASS CUTTING MACHINE FEEDER Work Phone: [facility] Comment on above: Generalized anxiety disorder (CMS/HCC); Insomnia, unspecified type Start: 01-24-2024 End: 01-24-2024 ambulatory SHASHI SERVIN Not Available Start: 01-24-2024 End: 01-24-2024 Telephone encounter Shea Vogel MD Work Phone: [facility] Start: 01-21-2024 End: 01-25-2024 Clinisync Result Encounter Generic External Data Provider [facility] External Department Unsolicited Start: 01-21-2024 End: 01-25-2024 Clinisync Result Encounter Generic External Data Provider [facility] External Department Unsolicited Start: 01-19-2024 End: 01-19-2024 Telephone encounter Shea Vogel MD Work Phone: [facility] Start: 01-11-2024 End: 01-11-2024 ambulatory SHEA VOGEL Not Available Start: 12-30-2023 End: 12-30-2023 ambulatory SHEA VOGEL Not Available Start: 12-24-2023 End: 12-24-2023 ambulatory DYLAN [facility] Start: 12-13-2023 End: 12-13-2023 ambulatory SHASHI Natarajan SADAF-NOSSEK Not Available Start: 12-07-2023 End: 12-07-2023 ambulatory [facility] Start: 11-30-2023 End: 11-30-2023 ambulatory SYLVIE [facility] Start: 11-30-2023 End: 11-30-2023 ambulatory [facility] Start: 11-25-2023 End: 11-25-2023 ambulatory SHEA VOGEL Not Available Start: 10-01-2023 End: 10-01-2023 ambulatory LANDRY [facility] Start: 09-07-2023 End: 09-10-2023 Emergency department patient visit SHEA VOGEL [facility] Start: 08-18-2023 End: 08-18-2023 Office outpatient visit 25 minutes Eve DOMINIQUEC Work Phone: [facility] Comment on above: Lumbar spondylosis; Bilateral leg cramps Start: 08-18-2023 End: 08-18-2023 ambulatory EVE Liz [facility] Start: 08-10-2023 End: 08-10-2023 ambulatory SAIRA WESTON Not Available Start: 07-29-2023 Telephone encounter Dana Kamara [facility] Start: 07-27-2023 End: 07-27-2023 ambulatory SHASHI Natarajan [facility]NOSSEK Not Available Start: 07-21-2023 End: 07-21-2023 Office outpatient new 30 minutes Eve Salas PA-C Work Phone: [facility] Comment on above: Lumbar spondylosis ( Primary Dx); Bilateral leg cramps Start: 07-21-2023 End: 07-21-2023 ambulatory [facility] Start: 07-01-2023 Bamboo flowsheet Saira Weston BUTTERMAKER Work Phone: [facility] Start: 07-01-2023 Bamboo flowsheet Saira Weston BUTTERMAKER Work Phone: [facility] Start: 07-01-2023 Telephone encounter Sairacatracho Read lf BUTTERMAKER Work Phone: [facility] Comment on above: Medication Question Start: 07-01-2023 End: 07-01-2023 Office outpatient visit 15 minutes Saira Weston BUTTERMAKER Work Phone: [facility] Comment on above: Secondary parkinsoni sm, unspecified secondary Parkinsonism type (CMS/HCC) (Primary Dx); Dystonia; Muscle cramping Start: 07-01-2023 End: 07-01-2023 ambulatory SAIRA WESTON Not Available Start: 06-01-2023 End: 06-01-2023 ambulatory SHASHI SERVIN Not Available Start: 08-26-2022 End: 08-27-[address] FRANKIE FIERRO . Facility: Start: 02-04-2017 End: 02-05-2017 Ambulatory RCIARDO CARRASCO [facility] Procedures Date Procedure Procedure Detail Performing Clinician Start: 03-07-2024 Adult depression scr eening assessment Willian Delacruz MD Work Phone: Start: 02-16-2024 Urnls dip stick/tabl et rgnt non-auto w/o micrscp Shea Vogel MD Work Phone: Start: 01-21-2024 Bacteria identified in Urine by Culture Generic External Data Provider Start: 01-11-2024 Mammography Shea Vogel MD Work Phone: Start: 12-24-2023 Follow-up visit Follow-up ANDREW CALI Start: 10-01-2023 Follow-up visit Follow-up WILLIAN MERCADO Start: 10-30-2022 Adult depression scr eening assessment Eve Salas PA-C Work Phone: Start: 10-15-2022 Mammography Saira Weston BUTTERMAKER Work Phone: Start: 10-01-2022 H/O: hysterectomy H/O: hysterectomy Saira Weston BUTTERMAKER Work Phone: Start: 10-08-2017 Colonoscopy Saira Weston BUTTERMAKER Work Phone: Plan of Treatment Date Care Activity Detail Author Start: 10-09-2027 Screening for malignant neoplasm of colon [facility] Start: 03-15-2025 Adult BMI Screening Adult BMI Screening [facility] Start: 03-15-2025 Tobacco Screening Tobacco Screening [facility] Start: 03-08-2025 Adult BMI Screening Adult BMI Screening [facility] Start: 03-08-2025 Tobacco Screening Tobacco Screening [facility] Start: 03-07-2025 Adult BMI Follow Up Plan Adult BMI Follow Up Plan [facility] Start: 03-07-2025 Depression Screening Depression Screening [facility] Start: 01-10-2025 Screening for malignant neoplasm of breast Mammogram [facility] Start: 09-30-2024 Adult BMI Follow Up Plan Adult BMI Follow Up Plan [facility] Start: 08-21-2024 End: 08-21-2024 Patient encounter procedure 08/21/2024 11:20 AM EDT Office Visit [facility] [address] [place] [phone] Shea Vogel MD [address] [place] [address] [facility] Start: 08-17-2024 Tobacco Screening Tobacco Screening [facility] Start: 07-20-2024 Adult BMI Screening Adult BMI Screening [facility] Start: 07-20-2024 Tobacco Screening Tobacco Screening [facility] Start: 07-17-2024 End: 07-17-2024 Patient encounter procedure 07/17/2024 2:30 PM EST Office Visit [facility] [address] [facility] [address] [place] [phone] Shashi Servin, TRAFFIC INVESTIGATOR-[facility] [address] [place] [address] [place] [address] [facility] Start: 06-26-2024 End: 06-26-2024 Social Work 06/26/2024 10:30 AM EST Social Work [facility] [address] [phone] [facility] Start: 06-13-2024 End: 06-13-2024 Patient encounter procedure 06/13/2024 4:00 PM EST Office Visit [facility] [address] [place] [facility] [place] [place] [phone] Willian Delacruz MD [address] [place] [address], [address] [place] [phone] [facility] Start: 05-26-2024 End: 05-26-2024 Patient encounter procedure 05/26/2024 11:20 AM EST Office Visit [facility] [address] [facility] [place] [phone] Shea Vogel MD [address] [place] [address] Arrived [facility] Comment on above: Arrived Start: 05-24-2024 End: 05-24-2024 Patient encounter procedure 05/24/2024 11:00 AM EST Office Visit [facility] [address] [facility] [place] [phone] Sue Cassidy NP [address] [place] [address] [facility] Start: 05-18-2024 End: 05-18-2024 Patient encounter procedure [facility] Comment on above: Arrived Start: 04-03-2024 End: 04-03-2024 Patient encounter procedure [facility] Comment on above: Arrived Start: 03-23-2024 End: 03-23-2024 Patient encounter procedure 03/23/2024 8:15 AM EST Appointment [facility] [address] [place] [facility] [phone] [facility] Start: 03-15-2024 End: 03-15-2024 Patient encounter procedure 03/15/2024 10:15 AM EDT Office Visit [facility] [address] [facility] [address] [place] [phone] Ene Mckoy, TRAFFIC INVESTIGATOR-UNDER SEAL OPERATOR [address] [facility] [address] [place] [address] [facility] Start: 03-08-2024 End: 03-08-2024 Patient encounter procedure [facility] Comment on above: Arrived Start: 02-23-2024 End: 02-22-2025 MRCP Abdomen WO and W contrast IV MR abdomen w contrast MRCP Imaging Routine Abnormal gallbladder ultrasound Abdominal pain with vomiting Weight loss Expected: 02/23/2024, Expires: 02/22/2025 [facility] Work Phone: Comment on above: Expected: 02/23/2024, Expires: Start: 02-23-2024 End: 02-23-2024 Patient encounter procedure 02/23/2024 10:00 AM EDT Office Visit [facility] [address] [place] [address] Shea Vogel MD [address] [place], [place] [phone] Arrived [facility] Comment on above: Arrived Start: 02-23-2024 End: 02-23-2024 Professional / ancillary services management 02/23/2024 9:00 AM EDT Ancillary Procedure [facility] [address] [phone] [facility] Start: 02-16-2024 End: 02-15-2025 Bacteria identified in Urine by Culture Urine culture (clean catch) Microbiology Routine Urinary incontinence, unspecified type Expected: 02/16/2024 (Approximate), Expires: 02/15/2025 [facility] Comment on above: Expected: 02/16/2024 (Approximate), Expi res: 02/15/2025 Start: 02-16-2024 End: 02-15-2025 Urinalysis complete panel - Urine Urinalysis with reflex microscopic (clean catch) Lab Routine Hematuria, unspecified type Expected: 02/16/2024 (Approximate), Expires: 02/15/2025 [facility] Comment on above: Expected: 02/16/2024 (Approximate), Expi res: 02/15/2025 Start: 02-16-2024 End: 02-15-2025 US Abdomen limited US RUQ Imaging Routine Chronic gastritis without bleeding, unspecified gastritis type Urinary incontinence, unspecified type Expected: 02/16/2024, Expires: 02/15/2025 [facility] Work Phone: Comment on above: Expected: 02/16/2024, Expires: Start: 02-15-2024 End: 02-15-2024 Patient encounter procedure 02/15/2024 11:00 AM EDT Office Visit [facility] [address] [place] [phone] Shea Vogel MD [address] [place], [place] [phone] [facility] Start: 01-24-2024 End: 01-24-2024 Patient encounter procedure 01/24/2024 3:00 PM EDT Office Visit [facility] [address] [facility] [address] [place] [address] Shashi Servin, TRAFFIC INVESTIGATOR-[facility] [address] [facility] [address] [place] [address] [facility] Start: 01-16-2024 COVID-19 Vaccine ( season) COVID-19 Vaccine ( season) [facility] Start: 01-16-2024 COVID-19 Vaccine ( season) COVID-19 Vaccine () [facility] Start: 01-16-2024 Influenza vaccination [facility] Start: 01-07-2024 Medicare Annual Wellness (AWV) Medicare Annual Wellness (AWV) [facility] Start: 10-31-2023 Depression Screening Depression Screening [facility] Start: 10-29-2023 End: 10-29-2023 Patient encounter procedure 10/29/2023 11:30 AM EDT Office Visit [facility] [address] [place] [phone] Willian Delacruz MD [address] [place] [address], [address] [place] [phone] [facility] Start: 10-16-2023 Screening for malignant neoplasm of breast Mammogram [facility] Start: 10-01-2023 End: 10-01-2023 Patient encounter procedure 10/01/2023 12:00 PM EDT Office Visit [facility] [address] [facility] [place] [phone] Willian Delacruz MD [address] [place] [address], [address] [place] [address] [facility] Start: 09-29-2023 End: 09-29-2023 Patient encounter procedure 09/29/2023 9:45 AM EDT Office Visit [facility] [address] [place] [phone] Eve Salas, PA-C [address] [place] [address] [facility] Start: 08-18-2023 End: 08-18-2023 Patient encounter procedure 08/18/2023 10:00 AM EDT Office Visit [facility] [address] [place] [phone] Eve Salas, PA-C [address] [place] [address] [facility] Start: 08-12-2023 End: 08-12-2023 Patient encounter procedure 08/12/2023 11:00 AM EDT Office Visit [facility] [address] [place] [phone] Saira Weston, BUTTERMAKER [address] [place] [address] [facility] Start: 07-27-2023 End: 07-27-2023 Patient encounter procedure 07/27/2023 11:00 AM EDT Office Visit [facility] [address] [facility] [address] [place] [phone] Sadaf-Shashi Molina, TRAFFIC INVESTIGATOR-[facility] [address] [facility] [address] [place] [address] [facility] Start: 07-19-2023 End: 07-19-2023 Patient encounter procedure 07/19/2023 2:00 PM EST Office Visit [facility] [address] [facility] [phone] Hoang Eddy, DPM [address] [place] [address] [facility] Start: 07-01-2023 End: 07-01-2023 Patient encounter procedure 07/01/2023 1:30 PM EST Office Visit [facility] [address] [place] [phone] Saira Weston, BUTTERMAKER [address] [place] [address] Arrived [facility] Comment on above: Arrived Start: 01-15-2023 COVID-19 Vaccine (5 season) COVID-19 Vaccine ( season) [facility] Start: 11-05-2019 Fall Risk Screening Fall Risk Screening [facility] Start: 1973 DTaP,Tdap and Td Vaccines (1 - Tdap) DTaP,Tdap and Td Vaccines (1 - Tdap) [facility] Start: 1954 Medicare Annual Wellness Visit Medicare Annual Wellness Visit [facility] Start: 1955 Screening for malignant neoplasm of colon [facility] Bacteria identified in Urine by Culture URINE CULTURE, ROUTINE Lab Routine 01/21/2024 3:52 PM EDT [facility] End: 03-15-2025 C difficile by PCR C difficile by PCR Lab Routine Diarrhea of presumed infectious origin 1 Occurrences starting 03/15/2024 until 03/15/2025 [facility] Comment on above: 1 Occurrences starting 03/15/2024 until 03/15/2025 End: 03-15-2025 Calprotectin, F Calprotectin, F Lab Routine Diarrhea of presumed infectious origin 1 Occurrences starting 03/15/2024 until 03/15/2025 [facility] Comment on above: 1 Occurrences starting 03/15/2024 until 03/15/2025 End: 03-15-2025 Esophagogastroduodenoscopy EGD GI Routine Nausea and vomiting, unspecified vomiting type Weight loss 1 Occurrences starting 03/15/2024 until 03/15/2025 [facility] Comment on above: 1 Occurrences starting 03/15/2024 until 03/15/2025 End: 03-15-2025 GI Panel(stool pathogen panel) GI Panel(stool pathogen panel) Lab Routine Diarrhea of presumed infectious origin 1 Occurrences starting 03/15/2024 until 03/15/2025 [employer] Work Phone: Comment on above: 1 Occurrences starting 03/15/2024 until 03/15/2025 End: 03-15-2025 Pancreatic Elastase, F Pancreatic Elastase, F Lab Routine Diarrhea of presumed infectious origin 1 Occurrences starting 03/15/2024 until 03/15/2025 [facility] Comment on above: 1 Occurrences starting 03/15/2024 until 03/15/2025 Immunizations Immunization Date Immunization Notes Care Provider Michel paredes 02-01-2024 influenza, high dose seasonal, preservative-free Shea Vogel MD Work Phone: [facility] 05-13-2023 Influenza, High-dose Seasonal, Quadrivalent, Preservative Free Saira Weston BUTTERMAKER Work Phone: [facility] 05-13-2023 influenza virus vacc ine, unspecified formulation Eve Salas PA-C Work Phone: [facility] 01-06-2023 pneumococcal conjuga te vaccine, 13 valent Saira Weston BUTTERMAKER Work Phone: [facility] 04-16-2022 Moderna SARS-CoV-2 50mcg/0.5mL Booster Sairacatracho Weston BUTTERMAKER Work Phone: [facility] 02-09-2022 influenza, injectabl e, quadrivalent, preservative free Saira Weston BUTTERMAKER Work Phone: [facility] 04-04-2021 Pfizer Purple Cap SARS-CoV-2 Vaccination Saira Weston BUTTERMAKER Work Phone: [facility] 02-12-2021 Influenza, High-dose Seasonal, Quadrivalent, Preservative Free Saira Weston BUTTERMAKER Work Phone: [facility] 05-02-2020 influenza, high dose seasonal, preservative-free Eve Salas PA-C Work Phone: [facility] 05-02-2020 Influenza, High-dose Seasonal, Quadrivalent, Preservative Free Saira Weston BUTTERMAKER Work Phone: [facility] 05-02-2020 pneumococcal polysaccharide vaccine, 23 valent Saira Weston BUTTERMAKER Work Phone: [facility] 09-30-2019 zoster vaccine recombinant Saira Weston BUTTERMAKER Work Phone: [facility] 07-28-2019 zoster vaccine recombinant Saira Weston BUTTERMAKER Work Phone: [facility] 03-23-2019 influenza, injectabl e, quadrivalent, contains preservative Eve Salas PA-C Work Phone: [facility] 03-23-2019 influenza, injectabl e, quadrivalent, preservative free Saira Weston BUTTERMAKER Work Phone: [facility] 03-30-2018 influenza, injectabl e, quadrivalent, contains preservative Eve Verhoff PA-C Work Phone: [facility] 03-30-2018 influenza, injectabl e, quadrivalent, preservative free Saira Weston BUTTERMAKER Work Phone: [facility] 03-11-2017 influenza, injectabl e, quadrivalent, contains preservative Eve Verhoff PA-C Work Phone: [facility] 03-11-2017 influenza, injectabl e, quadrivalent, preservative free Saira Weston BUTTERMAKER Work Phone: [facility] 02-20-2016 influenza, injectabl e, quadrivalent, preservative free Saira Weston BUTTERMAKER Work Phone: [facility] Payers Date Payer Category Payer Private Health Insurance [employer] [id number] 2019 Commercial Indemnity [facility] [id number] 2019 Medicare [id number]. [id number] 2019 Unknown [id number] 1.13.693.2. [id number] 1959 Medicare [id number] 1959 Unknown [id number] 1954 Unknown [id number] 2.16.840.1.953227.3.579.2. 593 1954 Unknown [id number] 2.16.840.1.394505.3.579.2. 1285 1954 Unknown [id number] 2.16.840.1.383990.3.579.2. 1285 1954 Unknown [id number] 2.16.840.1.911465.3.579.2. 128 1954 Unknown [id number] 2.16.840.1.732083.3.579.2. 1285 1954 Unknown [id number] 2.16.840.1.185728.3.579.2. 128 1954 Unknown [id number] 2.16.840.1.454186.3.579.2. 1286 1954 Unknown [id number] 2.16.840.1.054695.3.579.2. 1286 1954 Unknown [id number] 2.16.840.1.285251.3.579.2. 128 1954 Unknown [id number] 2.16.840.1.464769.3.579.2. 128 1954 Unknown [id number] 2.16.840.1.685223.3.579.2. 128 1954 Unknown [id number] 2.16.840.1.822651.3.579.2. 1286 1954 Unknown [id number] 2.16.840.1.367197.3.579.2. 128 1954 Unknown [id number] 2.16.840.1.867913.3.579.2. 1285 1954 Unknown [id number] 2.16.840.1.866916.3.579.2. 1258 1954 Unknown [id number] 2.16840.1.519414.3.579.2. 1258 1954 Unknown [id number] 2.16840.1.048118.3.579.2. 1258 1954 Unknown [id number] 2.840.1.022844.3.579.2. 1258 1954 Unknown [id number] 2.840.1.948194.3.579.2. 1258 1954 Unknown [id number] 2.840.1.231359.3.579.2. 1258 1954 Unknown [id number] 2.840.1.239890.3.579.2. 1258 1954 Unknown [id number] 2.840.1.830991.3.579.2. 1258 1954 Unknown [id number] 2.840.1.992378.3.579.2. 1258 1954 Unknown [id number] 2.840.1.005109.3.579.2. 1258 1954 Unknown [id number] 2.16840.1.968316.3.579.2. 1258 1954 Unknown [id number] 2.16840.1.405581.3.579.2. 1258 1954 Unknown [id number] 2.840.1.079511.3.579.2. 1258 1954 Unknown [id number] 2.16.840.1.019867.3.579.2. 1259 1954 Unknown [id number] 2.16.840.1.648876.3.579.2. 1259 1954 Unknown [id number] 2.16.840.1.667644.3.579.2. 1259 1954 Unknown [id number] 2.16.840.1.292054.3.579.2. 1259 Social History Date Type Detail Facility Start: 03-13-2022 End: 09-26-2022 Tobacco smoking status NHIS Never smoked tobacco [facility] Start: 03-13-2022 End: 09-26-2022 Tobacco use and exposure Smokeless tobacco non-user [facility] Start: 06-01-2023 End: 05-26-2024 Alcohol intake Ex-drinker (finding) [facility] Start: 10-05-2022 End: 05-18-2024 History of Social function [facility] Start: 10-05-2022 End: 05-18-2024 Alcohol Use Disorder Identification Test - Consumption [AUDIT-C] [facility] How often to you hav e a drink containing alcohol? Never [facility] How many standard dr inks containing alcohol do you have on a typical day? Patient does not drink [facility] Start: 04-14-2023 Alcohol Comment none, Caffeine intake: none [facility] Start: 1955 Sex Assigned At Not on file [facility] Start: 07-21-2023 End: 03-15-2024 Alcohol intake Current non-drinker of alcohol (finding) [facility] Start: 12-20-2014 Sex Female (finding) [facility] Medical Equipment Procedure Code Equipment Code Equipment Origin al Text Equipment Identifier Dates Cement Bn - [id number] Start: 07-10-2022 Nail Im 170mm 11 mm 130d Cnn Tfn-Adv Lat Rlf Cut Ti Niobium - Sna - [id number] Start: 09-14-2021 Blade Im Nl Au 9 0mm 10.35mm Tfn-Adv Hlcl Fem Prox Ti Niobium - Sna - [id number] Start: 09-14-2021 Screw Bn 32mm 5m m 4.[address] St Lck Strdr Blnt Tip Ti T25 [facility] - [id number] Start: 09-14-2021 Goals Date Patient Goal [...] Patient to return home with C v [facility], pending PT/OT evaluation and medical clearance Clinical Notes 09-11-2021 to 05-26-2024 Shea Vogel MD - 05/26/2024 11:20 AM BETTINA Hall - 05/18/2024 2:00 PM BETTINA Hall - 04/03/2024 2:00 PM Alli Cheung MA - 03/08/2024 9:00 AM EDT Note Date & Type Note Facility 05-26-2024 History of Present illness Narrative Images from the original note were not included. Mirian Gregg is a 68 y.o. female presents with chief complaint of Follow-up (Patient presents today for 3 month follow up.) HPI: HPI History of Present Illness The patient presents for evaluation of leg cramps, depression, and diarrhea. She has been experiencing severe leg and foot cramps, accompanied by stiffness, which significantly impairs her mobility. These symptoms are daily occurrences, typically manifesting after breakfast and progressively worsening throughout the day. She also reports numbness in her feet, describing it as a sensation agnieszka to having needles in her feet. The cramping and numbness are concurrent, and she experiences weakness during these episodes. Walking exacerbates her symptoms, while rest provides some relief, although it takes several hours for the pain to subside. She has not attempted to alleviate her symptoms with Tylenol. She has been engaging in stretching exercises and was last seen by a physical therapist a few weeks ago, who noted a change in her condition but was uncertain if it was related to her Parkinson's disease or medication. She has been on gabapentin for several years, taking 1 to 2 capsules three times a day. Her Sinemet dosage was recently increased to 2 tablets, but she reports no noticeable difference in her symptoms. She also reports difficulty sleeping due to heat sensations, which she attributes to the Sinemet. She has been using a walker for mobility, but finds it challenging to navigate between rooms. Walking exacerbates her symptoms, while rest provides some relief, although it takes several hours for the pain to subside. She has been on gabapentin for several years, taking 1 to 2 capsules three times a day. Her Sinemet dosage was recently increased to 2 tablets, but she reports no noticeable difference in her symptoms. She reports feeling down and depressed due to her current health status. She had a consultation with Shashi last week, who maintained her Zoloft dosage at the same level. She experienced diarrhea this morning, but does not frequently suffer from constipation. Her diet is devoid of fruits and vegetables. Supplemental Information She has gained 5 pounds since her last visit. She is no longer experiencing vomiting. She saw a make up man who conducted tests but did not find any abnormalities. She did not return for a follow-up as she did not want to go back. MEDICATIONS Current: Zoloft, gabapentin, Sinemet SUBJECTIVE: MEDICATIONS: Current Outpatient Medications Medication Instructions acetaminophen (TYLENOL) 1,000 mg, Every 8 hours PRN baclofen (LIORESAL) 10 mg, Oral, Every 8 hours bisacodyl (Dulcolax) 10 MG suppository Daily PRN brimonidine (AlphaGAN P) 0.2 % ophthalmic solution 2 drops, 3 times daily calcium carbonate (TUMS) 500 mg, 3 times daily PRN carbidopa-levodopa (Sinemet) 25-100 MG tablet 1 tablet, 4 times daily carbidopa-levodopa CR (Sinemet CR) 25-100 MG ER tablet 2 tablets, 2 times daily cholecalciferol (VITAMIN D3) 25 mcg, Daily gabapentin (Neurontin) 100 MG capsule Start with 1 capsule(100 mg) three times a day, and if tolerated well increase dose further to 2 caps(200 mg) three times daily after 2 weeks. hydrOXYzine pamoate (VISTARIL) 25 mg, Every 6 hours PRN hyoscyamine (ANASPAZ,LEVSIN) 0.125 mg, Every 4 hours PRN ibandronate (BONIVA) 150 mg, Oral, Every 30 days, Take in morning with full glass of water on an empty stomach. No food, drink, meds, or lying down for 60 minutes after. ibuprofen 400 mg, Every 8 hours PRN loperamide (IMODIUM) 2 mg, 4 times daily PRN LORazepam (ATIVAN) 0.25 mg, Oral, Every 8 hours PRN megestrol (MEGACE) 40 mg, Daily Melatonin 5 MG capsule 1 tablet, Nightly mirtazapine (REMERON) 30 mg, Oral, Nightly omeprazole (PRILOSEC) 40 mg, Oral, Daily before breakfast, Do not crush or chew. ondansetron ODT (ZOFRAN-ODT) 4 mg, Every 8 hours PRN potassium chloride 40 MEQ/15ML (20%) solution 15 mL, 2 times daily psyllium (Metamucil) 58.6 % packet 1 packet, Daily rivastigmine (EXELON) 3 mg, 2 times daily sertraline (ZOLOFT) 200 mg, Oral, Daily timolol (Timoptic) 0.5 % ophthalmic solution 1 drop, Daily traMADol (Ultram) 50 MG tablet Every 6 hours PRN ALLERGIES: Allergies Allergen Reactions Bupropion Unknown SURGICAL HISTORY: Past Surgical History: Procedure Laterality Date BONE MARROW BIOPSY 07/10/2022 L1 BREAST BIOPSY Right 2003 COLONOSCOPY 2009 FIXATION KYPHOPLASTY LUMBAR SPINE 07/10/2022 Balloon Kyphoplasty w elevation of fracture and cement augmentation of L1 vertebral body HIP FRACTURE SURGERY Left 09/14/2021 HYSTERECTOMY 2005 Total IN LASER SURGERY OF EYE Right 02/2019 TUBAL LIGATION Bilateral 2000 FAMILY HISTORY: Family History Problem Relation Name Age of Onset Hypertension Mother Osteoporosis Mother Nephrolithiasis Mother Alzheimer's disease Father Migrated Family History Mental illness Father Other (blader cancer) Brother Heart disease Maternal Grandmother Heart disease Maternal Grandfather Mental illness Paternal Grandmother Heart disease Paternal Grandfather Schizophrenia Nephew Alcohol abuse Neg Hx Drug abuse Neg Hx SOCIAL HISTORY: Social History Tobacco Use Smoking status: Never Smokeless tobacco: Never Vaping Use Vaping status: Never Used Substance Use Topics Alcohol use: Not Currently Comment: none, Caffeine intake: none Drug use: Never Depression: At risk (05/18/2024) PHQ-2 PHQ-2 Score: 3 REVIEW OF SYMPTOMS: Review of Systems OBJECTIVE: Visit Vitals BP 116/70 (BP Location: Left arm, Patient Position: Sitting, BP Cuff Size: Adult) Pulse (!) 112 Resp 16 Ht 5' 1 Wt 87 lb 12.8 oz SpO2 98% BMI 16.59 kg/m Smoking Status Never BSA 1.31 m Physical Exam ASSESSMENT AND PLAN: Assessment/Plan Problem List Items Addressed This Visit Parkinson's disease (CMS/HCC) - Primary Relevant Orders Ambulatory referral to Neurology Other Visit Diagnoses Major depressive disorder, recurrent, severe with psychotic symptoms (HCC) (CMS/HCC) Malignant neoplasm of endometrium (CMS/HCC) Unspecified dementia, unspecified severity, without behavioral disturbance, psychotic disturbance, mood disturbance, and anxiety (CMS/HCC) Increase gabapentin to 300 mg po tid Assessment & Plan 1. Leg cramps. Her symptoms are likely attributable to deconditioning of the legs rather than Parkinson's disease. She is advised to persist with her exercises and walking regimen, ensuring to distribute the activity throughout the day. The dosage of gabapentin will be escalated to 300 mg, to be taken three times daily. A referral to Dr. Culver, a neurologist, will be initiated. 2. Depression. She is currently on Zoloft and will continue with the same dose as per her recent appointment with Shashi. 3. Diarrhea. She is encouraged to incorporate more fruits and vegetables into her diet to increase fiber intake and help manage her diarrhea. Follow-up The patient will follow up in 3 months, or earlier if her condition deteriorates or new symptoms emerge. documented in this encounter [facility] 05-18-2024 History of Present illness Narrative Images from the original note were not included. Mirian Gregg is a 68 y.o. female presents for Medication Management. HPI: Patient is here for medication follow up. Patient has decompensated since last appt. Patient states she feels shaky inside. Flat affect. Mood is reported as depressed and rates 8 (10worst). Denies suicidal thoughts. Seeing Dr Delacruz. Anxiety is 4 (10worst) Sleep is terrible. In wheel chair currently needs help to get dressed. Did not spend holiday with family stayed at assisted living .. Medication compliant. No reported side effects. Denies abuse of substances. Medical problems since last visit. c/o cramping of feet and legs this been going on for months. Trying to get in to see neuro sooner. Appetite good.Gained 3lbs. Psychosocial stressors include limitations. SUBJECTIVE: PAST MEDICAL HISTORY: Past Medical History: Diagnosis Date Depression (CMS/HCC) Endometrial cancer (CMS/HCC) 2004 History of being hospitalized 08/2022 [facility] days History of being hospitalized 04/2022 [facility] days History of psychiatric hospitalization [facility] 06/2022 and 04/2022 Nontoxic multinodular goiter (CMS/HCC) Osteoporosis (CMS/HCC) Parathyroid adenoma Parkinson's disease (CMS/HCC) Spinal stenosis Thyroid nodule (CMS/HCC) Vitamin D deficiency ALLERGIES: Allergies Allergen Reactions Bupropion Unknown SURGICAL HISTORY: Past Surgical History: Procedure Laterality Date BONE MARROW BIOPSY 07/10/2022 L1 BREAST BIOPSY Right 2003 COLONOSCOPY 2009 FIXATION KYPHOPLASTY LUMBAR SPINE 07/10/2022 Balloon Kyphoplasty w elevation of fracture and cement augmentation of L1 vertebral body HIP FRACTURE SURGERY Left 09/14/2021 HYSTERECTOMY 2005 Total IN LASER SURGERY OF EYE Right 02/2019 TUBAL LIGATION Bilateral 2000 FAMILY HISTORY: Family History Problem Relation Name Age of Onset Hypertension Mother Osteoporosis Mother Nephrolithiasis Mother Alzheimer's disease Father Migrated Family History Mental illness Father Other (blader cancer) Brother Heart disease Maternal Grandmother Heart disease Maternal Grandfather Mental illness Paternal Grandmother Heart disease Paternal Grandfather Schizophrenia Nephew Alcohol abuse Neg Hx Drug abuse Neg Hx SOCIAL HISTORY: Social History Tobacco Use Smoking status: Never Smokeless tobacco: Never Vaping Use Vaping status: Never Used Substance Use Topics Alcohol use: Not Currently Comment: none, Caffeine intake: none Drug use: Never Depression: At risk (04/03/2024) PHQ-2 PHQ-2 Score: 6 REVIEW OF SYMPTOMS - MENTAL STATUS EXAM Appearance Appearance: Casual dress, normal grooming and hygiene Attitude Attitude: Cooperative, conversant, engaged, and with good eye contact. Behavior calm Speech Normal, clear, regular rate, rhythm and volume-quiet Affect flat Mood Depressed and Anxious Thought Process thought blocking Thought Content No Suicidal Ideation and No Homicidal ideation Perception No perceptual abnormalities noted Orientation Appropriate to age, Person, Place, and Time Memory/Concentration Short term intact and buttermaker intact Insight/Judgement Good OBJECTIVE: Visit Vitals Smoking Status Never No results found for: TSH Lab Results Component Value Date GLU 111 (H) 03/08/2024 CALCIUM 9.2 03/08/2024 NA 143 12/30/2023 K 4.0 12/30/2023 CO2 24 03/08/2024 CL 109 12/30/2023 BUN 18 03/08/2024 CREATININE 0.71 03/08/2024 Lab Results Component Value Date WBC 7.8 03/08/2024 HGB 13.5 12/30/2023 HCT 42.3 12/30/2023 MCV 94.6 12/30/2023 PLT 246 12/30/2023 No results found for: CHOL No results found for: HDL No results found for: LDLCALC No results found for: TRIG ASSESSMENT AND PLAN: Assessment/Plan 1. Generalized anxiety disorder - F41.1 2. Recurrent major depressive disorder, in partial remission - F33.41 3. Panic disorder [episodic paroxysmal anxiety] - F41.0 Treatment remeron Tablet, 30 MG, 1 tablet at bedtime prn anxiety, Orally, Once a day, 30 days-target sleep and anxiety. Ativan Tablet, 0.25 MG, 1 tablet, Orally, bid and prn up to tid, Increase zoloft 100 mg bid 1 daily every day. -to target worsening of depression Could benefit from counseling - patient agreed to return to counseling due to difficulty with living arrangement - put in referral with [facility] Provided with summary of visit. Patient and sister in law will attempt follow with Dr Jaspreet barrett physical complaints And neuro Reviewed med list for accuracy Encouraged increase in activity and getting out of her room. Patient was seen Face to Face, Reviewed chart documents and documentation, Visit time : 50min Follow up 2 months documented in this encounter [facility] 04-03-2024 History of Present illness Narrative Images from the original note were not included. Mirian Gregg is a 68 y.o. female presents for Medication Management. HPI: Patient is here for medication follow up. Here with her sister in law. Patient states mood is terrible. She feels staff at detention dont listen to her. Mood depressed about detention. Agreed to try to increase. Anxiety is high. Sleeping difficulty . Getting woke up be dtaff. Discussed weight. Appetite improved. Was given medication for appetite. ,Medication compliant. No reported side effects. Denies abuse of substances. C/o if stiffness. Medical problems since last visit. Psychosocial stressors include deteriorating condition. SUBJECTIVE: PAST MEDICAL HISTORY: Past Medical History: Diagnosis Date Depression ([facility]/HCC) Endometrial cancer ([facility]) 2004 History of being hospitalized 08/2022 [facility] days History of being hospitalized 04/2022 [facility] x14 days History of psychiatric hospitalization [facility] 06/2022 and 04/2022 Nontoxic multinodular goiter (CMS/HCC) Osteoporosis ([facility]/HCC) Parathyroid adenoma Parkinson's disease ([facility]) Spinal stenosis Thyroid nodule ([facility]) Vitamin D deficiency ALLERGIES: Allergies Allergen Reactions Bupropion Unknown SURGICAL HISTORY: Past Surgical History: Procedure Laterality Date BONE MARROW BIOPSY 07/10/2022 L1 BREAST BIOPSY Right 2003 COLONOSCOPY 2008 FIXATION KYPHOPLASTY LUMBAR SPINE 07/10/2022 Balloon Kyphoplasty w elevation of fracture and cement augmentation of L1 vertebral body HIP FRACTURE SURGERY Left 09/14/2021 HYSTERECTOMY 2005 Total IN LASER SURGERY OF EYE Right 02/2019 TUBAL LIGATION Bilateral 2000 FAMILY HISTORY: Family History Problem Relation Name Age of Onset Hypertension Mother Osteoporosis Mother Nephrolithiasis Mother Alzheimer's disease Father Migrated Family History Mental illness Father Other (blader cancer) Brother Heart disease Maternal Grandmother Heart disease Maternal Grandfather Mental illness Paternal Grandmother Heart disease Paternal Grandfather Schizophrenia Nephew Alcohol abuse Neg Hx Drug abuse Neg Hx SOCIAL HISTORY: Social History Tobacco Use Smoking status: Never Smokeless tobacco: Never Vaping Use Vaping status: Never Used Substance Use Topics Alcohol use: Not Currently Comment: none, Caffeine intake: none Drug use: Never Depression: At risk (03/07/2024) Received from [employer] [facility] PHQ-2 Total Score: 9 REVIEW OF SYMPTOMS - MENTAL STATUS EXAM Appearance Appearance: Casual dress, normal grooming and hygiene Attitude Attitude: Cooperative, conversant, engaged, and with good eye contact. Behavior Cooperative, conversant, engaged, and with good eye contact. Speech Normal, clear, regular rate, rhythm and volume Affect blunted Mood Depressed and Anxious Thought Process Organized and Clear Thought Content No Suicidal Ideation, No Homicidal ideation, and Suicidal Ideation with plan Perception No perceptual abnormalities noted Orientation Appropriate to age and Person Memory/Concentration Short term intact and detention intact Insight/Judgement Fair OBJECTIVE: Visit Vitals Smoking Status Never No results found for: TSH Lab Results Component Value Date GLU 111 (H) 03/08/2024 CALCIUM 9.2 03/08/2024 NA 143 12/30/2023 K 4.0 12/30/2023 CO2 24 03/08/2024 CL 109 12/30/2023 BUN 18 03/08/2024 CREATININE 0.71 03/08/2024 Lab Results Component Value Date WBC 7.8 03/08/2024 HGB 13.5 12/30/2023 HCT 42.3 12/30/2023 MCV 94.6 12/30/2023 PLT 246 12/30/2023 No results found for: CHOL No results found for: HDL No results found for: LDLCALC No results found for: TRIG ASSESSMENT AND PLAN: Assessment/Plan 1. Generalized anxiety disorder - F41.1 2. Recurrent major depressive disorder, in partial remission - F33.41 3. Panic disorder [episodic paroxysmal anxiety] - F41.0 Treatment remeron Tablet, 30 MG, 1 tablet at bedtime prn anxiety, Orally, Once a day, 30 days-target sleep and anxiety. Ativan Tablet, 0.25 MG, 1 tablet, Orally, bid and prn up to tid, Increase zoloft 100 mg bid 1 daily every day. -to target worsening of depression Could benefit from counseling - patient agreed to return to counseling due to difficulty with living arrangement and Provided with summary of visit. Patient was seen Face to Face, Reviewed chart documents and documentation, Visit time : 45min F/U 6 weeks documented in this encounter [facility] 03-15-2024 Telephone encounter Note KAUR Torres from [facility] Called to inform you that they will continue HH Therapy 1x per week x8wk [phone] if needed. [facility] 03-15-2024 Miscellaneous Notes KAUR Torres from [facility] Called to inform you that they will continue HH Therapy 1x per week x8wk [phone] if needed. documented in this encounter [facility] 03-15-2024 Miscellaneous Notes Per Ene: Patient due for MRCP on 03/23. Depending on results will have EGD/MAC or an ERCP/general. Will schedule after 03/23 testing. EGD with Hajar with MAC at [facility]/- ASA 3 Stool test F/u 1 month after EGD- weight loss, NVD documented in this encounter [facility] 03-15-2024 Telephone encounter Note Per Ene: Patient due for MRCP on 03/23. Depending on results will have EGD/MAC or an ERCP/general. Will schedule after 03/23 testing. EGD with Hacassidyr with MAC at [facility]/- ASA 3 Stool test F/u 1 month after EGD- weight loss, NVD [facility] 03-15-2024 History of Present illness Narrative [facility] New Patient Visit - History & Physical CHIEF COMPLAINT: Chief Complaint Patient presents with Vomiting Patient is here for vomiting and diarrhea and weight loss. HISTORY OF PRESENT ILLNESS: Mirian Gregg is a 68 y.o. female who has a past medical history of anemia, endometrial CA diagnosed in 2004 s/p chemotherapy, gastritis, left atrial enlargement, osteoporosis, orthostatic hypotension, Parkinson's disease, shingles, and skin CA 2018 who presents today for evaluation of nausea, vomiting, diarrhea, and weight loss. She reports daily nausea with intermittent vomiting and diarrhea since roughly September 2023. Only known trigger factors factor was patient had fallen and broken her hip. While in nursing facility, she began to not want to eat. She developed daily nausea with intermittent vomiting a couple times a week. No hematemesis. No heartburn or dysphagia. PCP started Omeprazole 40 mg daily without improvement. Her appetite is poor. She is particular about the texture of foods. She does not like assisted living facility foods. She also reports she is unable to smell or taste since chemotherapy. She will be seeing speech therapy. She has tried Boost, Ensure, or [place] Breakfast in the past but does not take consistently. She has abdominal discomfort most of the time . She notes abdominal noises following meals. She can go a couple days without moving her bowels then will have several episodes of urgent diarrhea. She has episodes of incontinence. No hematochezia or melena. She has reported weight loss of roughly 42 pounds since July 2023. Recent labs 03/08/2024 showed normal CBC and liver enzymes. Lipase 56. CT A/P with contrast showed no acute abnormalities. Abdominal ultrasound 02/23/2024 with one image showing a potential stone versus volume averaging in the common duct. MRI/MRCP has been ordered but not completed. Patient resides in assisted living. No prior EGD. Last colonoscopy in 2017. No known family history of GI disorders or malignancy. Colonoscopy 09/[address] Huizar: Final Pathologic Diagnosis Sigmoid colon biopsy: Fragments of colonic mucosa exhibit no significant histopathologic abnormality. No colitis is identified. Weight 03/15/24 1022 33.6 kg (74 lb) 03/08/24 1020 35.6 kg (78 lb 6.4 oz) 03/07/24 0916 39.9 kg (87 lb 14.4 oz) 12/24/23 1036 39.9 kg (88 lb) 10/01/23 1200 45.8 kg (101 lb) 07/21/23 1044 52.6 kg (116 lb) 03/02/23 1001 52.6 kg (116 lb) 10/30/22 0924 51.7 kg (114 lb) 08/20/22 1300 50.8 kg (112 lb) 08/11/22 1943 49.9 kg (110 lb) 07/10/22 1628 51.3 kg (113 lb) 07/09/22 0850 51.3 kg (113 lb 1.5 oz) 07/08/22 1800 51.3 kg (113 lb) 07/08/22 0958 51.3 kg (113 lb) 06/03/22 1424 49.9 kg (110 lb) 04/26/22 0304 49.9 kg (110 lb) 03/13/22 0856 52.8 kg (116 lb 6.4 oz) Past Medical History: Diagnosis Date Anemia Back pain Chemotherapy-induced neuropathy ([facility]-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) 2005 Falls, sequela 11/07/2021 Forgetfulness 03/02/2023 Gait instability 11/07/2021 Gastritis History of malignant neoplasm of endometrium 11/07/2021 Idiopathic hypotension Left atrial enlargement Low back pain Lumbar radiculopathy 03/02/2023 Neck pain Orthostatic hypotension 07/14/2021 Osteoporosis Panic attacks 06/03/2022 Parkinson's disease ([facility]-HCC) 11/07/2021 Parkinsonism (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 [place], [place] INSERTION INTRAMEDULLARY TROCHANTERIC FIXATION NAIL HIP Left 09/14/2021 Performed by Joshua Ramos MD at [facility] SELECTIVE LASER TRABECULOPLASTY Right 02/24/2019 SLT 360 OD (skipping narrow areas) JCB TUBAL LIGATION 2000 Current Medications: Current Outpatient Medications: acetaminophen (TYLENOL EXTRA STRENGTH) 500 mg tablet, Take 1 tablet (500 mg total) by mouth every 6 (six) hours as needed for pain., Disp: , Rfl: baclofen (LIORESAL) 10 mg tablet, Take 1 tablet (10 mg total) by mouth in the morning and 1 tablet (10 mg total) before bedtime. Morning and 2pm., Disp: , Rfl: bisacodyL (OneLAX bisacodyL) 10 mg suppository, Insert 1 suppository (10 mg total) into the rectum as needed for constipation., Disp: , Rfl: brimonidine (ALPHAGAN) 0.2 % ophthalmic solution, 1 drop 3 (three) times a day., Disp: , Rfl: busPIRone (BUSPAR) 7.5 mg tablet, Take 1 tablet (7.5 mg total) by mouth in the morning., Disp: , Rfl: calcium carbonate (TUMS) 200 mg elemental (500 mg) chewable tablet, Chew 2.5 tablets (500 mg total) and swallow in the morning., Disp: , Rfl: carbidopa-levodopa (SINEMET CR) 25-100 mg per CR tablet, Take 2 tablets at 6 am, and 2 tablets at 6 pm, Disp: , Rfl: carbidopa-levodopa (SINEMET) 25-100 mg per tablet, Take 2 tablets at 6 am, 2 tablets at 10 am, 2 tablet at 2 pm, 1 tablet at 6 pm. Take 30-45 mins before or after meals., Disp: , Rfl: cholecalciferol, vitamin D3, 2,000 units capsule, Take 1 capsule (2,000 Units total) by mouth in the morning., Disp: , Rfl: gabapentin (NEURONTIN) 100 mg capsule, Start with 1 capsule(100 mg) three times a day, and if tolerated well increase dose further to 2 caps(200 mg) three times daily after 2 weeks., Disp: 180 capsule, Rfl: 5 hydrOXYzine (ATARAX) 25 mg tablet, Take 1 tablet (25 mg total) by mouth every 6 (six) hours as needed for itching., Disp: , Rfl: ibandronate (BONIVA) 150 mg tablet, Take 1 tablet (150 mg total) by mouth every 30 (thirty) days., Disp: , Rfl: ibuprofen (MOTRIN) 400 mg tablet, Take 1 tablet (400 mg total) by mouth every 8 (eight) hours as needed for pain., Disp: , Rfl: loperamide (IMODIUM) 2 mg capsule, Take 1 capsule (2 mg total) by mouth 4 (four) times a day as needed., Disp: , Rfl: LORazepam (ATIVAN) 0.5 mg tablet, Take 1 tablet (0.5 mg total) by mouth every 8 (eight) hours as needed for anxiety., Disp: , Rfl: megestroL (MEGACE) 20 mg chemo tablet, Take 1 tablet by mouth daily, Disp: , Rfl: melatonin 10 mg tablet, Take 5 mg by mouth nightly., Disp: , Rfl: mirtazapine (REMERON) 15 mg tablet, Take 2 tablets (30 mg total) by mouth nightly., Disp: , Rfl: llgvt-0c-qoy-epa-fish oil ([place]-3 Fish OiL) 300-1,000 mg capsule, Take 1,000 mg by mouth once daily., Disp: , Rfl: omeprazole (PriLOSEC) 40 mg capsule, Take 1 capsule (40 mg total) by mouth in the morning., Disp: , Rfl: ondansetron (ZOFRAN) 4 mg tablet, Take 1 tablet (4 mg total) by mouth every 8 (eight) hours as needed for nausea or vomiting., Disp: , Rfl: ondansetron ODT (ZOFRAN ODT) 4 mg disintegrating tablet, Dissolve 1 tablet (4 mg total) on tongue every 8 (eight) hours as needed for nausea for up to 10 doses., Disp: 10 tablet, Rfl: 0 potassium chloride (KLOR-CON) 20 mEq packet, Take 1 packet (20 mEq total) by mouth in the morning and 1 packet (20 mEq total) before bedtime., Disp: , Rfl: psyllium (METAMUCIL) 3.4 gram packet, Take 1 packet (3.4 g total) by mouth in the morning., Disp: , Rfl: rivastigmine (EXELON) 3 mg capsule, Take 1 capsule (3 mg total) by mouth in the morning and 1 capsule (3 mg total) before bedtime., Disp: 60 capsule, Rfl: 5 sertraline (ZOLOFT) 100 mg tablet, Take 1 tablet (100 mg total) by mouth once daily. Take 3, 1/2 tabs by mouth daily, Disp: , Rfl: sodium chloride 1,000 mg tablet,soluble, Take 1 tablet (1,000 mg total) by mouth once., Disp: , Rfl: timolol (TIMOPTIC) 0.5 % ophthalmic solution, , Disp: , Rfl: traMADoL (ULTRAM) 50 mg tablet, Take by mouth every 6 (six) hours as needed., Disp: , Rfl: sertraline (ZOLOFT) 50 mg tablet, Take 1 tablet (50 mg total) by mouth in the morning. Take with 100mg tablet. (Patient not taking: Reported on 12/24/2023), Disp: , Rfl: sertraline (ZOLOFT) 50 mg tablet, Take 3 tablets (150 mg total) by mouth in the morning. (Patient not taking: Reported on 12/24/2023), Disp: , Rfl: I reviewed and reconciled this patient's medication list today. The list included in this note is the most up to date list that I can attest to at this time based on the information that the patient has provided me and the electronic medical record. ALLERGIES: Wellbutrin [bupropion hcl] SOCIAL HISTORY: Social History Tobacco Use Smoking status: Never Smokeless tobacco: Never Vaping Use Vaping status: Never Used Substance Use Topics Alcohol use: No Drug use: No FAMILY HISTORY: Family History Problem Relation Age of Onset Arthritis Mother Heart disease Mother Hypertension Mother Kidney disease Mother Breast cancer Neg Hx ASSESSMENTS: REVIEW OF SYSTEMS: See HPI, otherwise ROS as below CONSTITUTIONAL: Weight loss; No fatigue, fever, or chills HEENT: No eye pain, difficulty swallowing, or painful swallowing RESPIRATORY: No coughing, shortness of breath, or wheezing CARDIOVASCULAR: No chest pain, palpitations, dyspnea on exertion, or edema GASTROINTESTINAL: Nausea/vomiting, change in bowel habits; No blood in stools GENITOURINARY: No dysuria or hematuria INTEGUMENT/BREAST: No skin rashes or skin lesions HEMATOLOGIC/LYMPHATIC: No anemia or easy bruising ALLERGIC/IMMUNOLOGIC: No seasonal allergies, itching, or hay fever ENDOCRINE: No heat/cold intolerance, no diabetes MUSCULOSKELETAL: No joint/muscle pain or arthritis NEUROLOGICAL: No headache or seizures BEHAVIOR/PSYCH: No anxiety or depression PHYSICAL EXAM: Vitals: 03/15/24 1022 BP: 100/66 Weight: 33.6 kg (74 lb) Height: 152.4 cm (5') Body mass index is 14.45 kg/m . CONSTITUTIONAL: Alert. Frail. No apparent distress. Family present at bedside. HEAD: Normocephalic, atraumatic EYES: Pupils equal, round and reactive to light; conjunctiva pink; no scleral icterus. ENT: Oral pharynx with moist mucus membranes. LUNGS: No increased work of breathing CARDIOVASCULAR: no edema ABDOMEN: Soft, thin, non-distended and non-tender. SKIN: Warm and dry. No bruising or bleeding, no rashes and no jaundice. MS: Normal range of motion, moves all 4 extremities spontaneously, and ambulates with difficulty. Currently resting in wheelchair. NEURO: Oriented to person, place, and time. No focal deficits. PSYCH: Normal mood and affect. Behavior is normal. Depression Screening DATA: CBC: Lab Results Component Value Date WBC 7.8 03/08/2024 HGB 13.9 03/08/2024 HCT 40.9 03/08/2024 MCV 87 03/08/2024 RDW 14.2 03/08/2024 PLT 298 03/08/2024 CMP: Lab Results Component Value Date K 4.3 03/08/2024 CL 103 03/08/2024 CO2 24 03/08/2024 BUN 18 03/08/2024 GLU 111 (H) 03/08/2024 GLU 93 07/11/2022 09/03/16 09:57 09/11/21 13:05 09/13/21 12:50 10/06/21 06:50 04/26/22 03:35 07/08/22 18:55 03/08/24 10:37 Bilirubin, direct 0.1 Total bilirubin 0.6 0.3 0.7 0.6 1.0 0.7 0.8 AST 19 14 19 15 17 29 14 ALT 21 6 7 <5 12 8 17 Alkaline phosphatase 49 56 53 105 76 66 73 07/08/22 18:55 03/08/24 10:37 Lipase 11 56 (H) IMAGING: Reviewed imaging. CT A/P with contrast 03/08/2024: FINDINGS: Visualized lung bases are unremarkable. The liver, spleen, adrenal glands, pancreas, gallbladder, and right kidney are unremarkable. Several small parapelvic left renal cysts. No enlarged abdominal lymph nodes. Pelvic surgical clips. The bladder is unremarkable. Previous hysterectomy. The small and large bowel are of normal caliber with no evidence of bowel wall thickening. Colonic diverticulosis without acute inflammation. No free fluid in the abdomen or pelvis. No free intraperitoneal air. Previous T12 kyphoplasty. Sclerotic changes in the sacrum likely related to previous/insufficiency fractures. Postsurgical changes in the proximal left femur. IMPRESSION: * No acute abnormalities identified in the abdomen/pelvis. Abdominal ultrasound 02/2024: FINDINGS: The pancreas is sonographically normal. The liver is normal size and echogenicity. No free fluid in Morisons pouch. Portal vein flow is appropriate. The gallbladder is nondistended. No shadowing calculi, wall thickening or pericholecystic fluid. The ducts are nondilated. One image demonstrates a subtle hyperechoic focus in the distal common duct. The right kidney is without shadowing calculi or hydronephrosis. Measurements: CBD: 0.26 cm GB wall: 0.9 cm Pancreas: WNL Right kidney: 9.07 x 4.74 x 4.73 cm Liver: WNL IMPRESSION: 1. No sonographic evidence of cholelithiasis or acute cholecystitis. 2. No biliary ductal dilatation. One image shows a potential stone versus volume averaging in the common duct. MRCP is recommended. ASSESSMENT AND PLAN: Mirian Gregg is a 68 y.o. female with a past medical history of anemia, endometrial CA diagnosed in 2004 s/p chemotherapy, gastritis, left atrial enlargement, osteoporosis, orthostatic hypotension, Parkinson's disease, shingles, and skin CA 2019 who presents today for evaluation of nausea, vomiting, diarrhea, and weight loss. She reports daily nausea with intermittent vomiting and diarrhea since roughly September 2023. Only known trigger factors factor was patient had fallen and broken her hip. While in nursing facility, she began to not want to eat. She developed daily nausea with intermittent vomiting and intermittent diarrhea a couple times a week. She has lost roughly 42 pounds since July 2023. Recent labs 03/08/2024 showed normal CBC and liver enzymes. Lipase 56. CT A/P with contrast showed no acute abnormalities. Abdominal ultrasound 02/23/2024 with one image showing a potential stone versus volume averaging in the common duct. MRI/MRCP has been ordered but not completed. Will awaiting MRI/MRCP results. I have discussed proceeding with EGD vs ERCP pending results of MRI/MRCP. I have discussed the risks and benefits of endoscopy including but not limited to, bleeding, infection, perforation/tear as well as anesthesia risks. Patient verbalized understanding and is agreeable to proceed. I will check infectious stool studies. She would likely benefit from colonoscopy as well however patient likely to be unable to tolerate prep at this time due to nausea/vomiting. Diagnoses and all orders for this visit: Weight loss - EGD; Future with Dr. Rosales with MAC- ASA 3 at [facility]/ Nausea and vomiting, unspecified vomiting type - EGD; Future with Dr. Rosales with MAC- ASA 3 at [facility]/ - Follow up MRI/MRCP results Diarrhea of presumed infectious origin - GI Panel(stool pathogen panel); Future - C difficile by PCR; Future - Calprotectin, F; Future - Pancreatic Elastase, F; Future Follow up after endoscopy or sooner if needed. FILIBERTO Gill [facility] [place] [id number] PH: [phone] SR/ID Total time spent: 45 minutes Preparing to see the patient (e.g., review of tests) Obtaining and/or reviewing separately obtained history Performing a medically appropriate examination and/or evaluation Counseling and educating the patient/family/caregiver Ordering medications, tests, or procedures FILIBERTO Leahy 03/15/24 1339 documented in this encounter [facility] 03-08-2024 History of Present illness Narrative Mirian Gregg is a 68 y.o. female presents with chief complaint of Follow-up (Patient presents today for 2 week follow up.) HPI: HPI SUBJECTIVE: MEDICATIONS: Current Outpatient Medications Medication Instructions acetaminophen (TYLENOL) 1,000 mg, Every 8 hours PRN baclofen (LIORESAL) 10 mg, Oral, Every 8 hours bisacodyl (Dulcolax) 10 MG suppository Daily PRN brimonidine (AlphaGAN P) 0.2 % ophthalmic solution 2 drops, 3 times daily calcium carbonate (TUMS) 500 mg, 3 times daily PRN carbidopa-levodopa (Sinemet) 25-100 MG tablet 1 tablet, 4 times daily carbidopa-levodopa CR (Sinemet CR) 25-100 MG ER tablet 2 tablets, 2 times daily cholecalciferol (VITAMIN D3) 25 mcg, Daily gabapentin (Neurontin) 100 MG capsule Start with 1 capsule(100 mg) three times a day, and if tolerated well increase dose further to 2 caps(200 mg) three times daily after 2 weeks. hyoscyamine (ANASPAZ,LEVSIN) 0.125 mg, Every 4 hours PRN ibandronate (BONIVA) 150 mg, Oral, Every 30 days, Take in morning with full glass of water on an empty stomach. No food, drink, meds, or lying down for 60 minutes after. LORazepam (ATIVAN) 0.25 mg, Oral, Every 8 hours PRN megestrol (MEGACE) 20 mg, Oral, Daily Melatonin 5 MG capsule 1 tablet, Nightly mirtazapine (REMERON) 30 mg, Oral, Nightly omeprazole (PRILOSEC) 40 mg, Oral, Daily before breakfast, Do not crush or chew. ondansetron ODT (ZOFRAN-ODT) 4 mg, Every 8 hours PRN potassium chloride CR (Klor-Con M20) 20 MEQ ER tablet 20 mEq, 2 times daily psyllium (Metamucil) 58.6 % packet 1 packet, Daily rivastigmine (EXELON) 3 mg, 2 times daily sertraline (ZOLOFT) 150 mg, Oral, Daily timolol (Timoptic) 0.5 % ophthalmic solution 1 drop, Daily traMADol (Ultram) 50 MG tablet Every 6 hours PRN ALLERGIES: Allergies Allergen Reactions Bupropion Unknown SURGICAL HISTORY: Past Surgical History: Procedure Laterality Date BONE MARROW BIOPSY 07/10/2022 L1 BREAST BIOPSY Right 2003 COLONOSCOPY 2008 FIXATION KYPHOPLASTY LUMBAR SPINE 07/10/2022 Balloon Kyphoplasty w elevation of fracture and cement augmentation of L1 vertebral body HIP FRACTURE SURGERY Left 09/14/2021 HYSTERECTOMY 2005 Total IN [place] SURGERY OF EYE Right 02/2019 TUBAL LIGATION Bilateral 2001 FAMILY HISTORY: Family History Problem Relation Name Age of Onset Hypertension Mother Osteoporosis Mother Nephrolithiasis Mother Alzheimer's disease Father Migrated Family History Mental illness Father Other (blader cancer) Brother Heart disease Maternal Grandmother Heart disease Maternal Grandfather Mental illness Paternal Grandmother Heart disease Paternal Grandfather Schizophrenia Nephew Alcohol abuse Neg Hx Drug abuse Neg Hx SOCIAL HISTORY: Social History Tobacco Use Smoking status: Never Smokeless tobacco: Never Vaping Use Vaping status: Never Used Substance Use Topics Alcohol use: Not Currently Comment: none, Caffeine intake: none Drug use: Never Depression: At risk (03/07/2024) Received from [employer] PHQ-2 Total Score: 9 REVIEW OF SYMPTOMS: Review of Systems OBJECTIVE: Visit Vitals BP 102/62 (BP Location: Left arm, Patient Position: Sitting, BP Cuff Size: Adult) Pulse 103 Resp 20 Ht 5' 1 Wt 74 lb 6.4 oz SpO2 99% BMI 14.06 kg/m Smoking Status Never BSA 1.2 m Physical Exam ASSESSMENT AND PLAN: Assessment/Plan No follow-ups on file. Mirian Gregg is a 68 y.o. female presents with chief complaint of Follow-up (Patient presents today for 2 week follow up.) HPI: HPI History of Present Illness The patient is a 68-year-old female who presents for evaluation of weight loss and dysphagia. She is accompanied by an adult male. She experiences a sensation of something being stuck in her chest, which causes anxiety and dizziness. She finds it difficult to focus and often feels as if she is in her own world. She has been experiencing pain and has requested medication for anxiety, which seems to help. She finds that sitting and calming herself is more effective than panicking. She prefers to stay in her room due to the noise from others talking loudly. She does not have difficulty swallowing but often does not want to swallow. She finds it difficult to swallow when lying down and has to break larger pills in half. She has not had a swallow study and has not seen a speech therapist yet. She has an appointment with a make up man next Wednesday and an ERCP scheduled for . She vomited a few times yesterday, usually upon waking up and going to the bathroom. Ativan does not seem to help with the vomiting. She takes her Parkinson's medication at night, which she often vomits. She also takes potassium, which dissolves quickly in water. She consumed strawberries and peaches yesterday without any vomiting. She has not been consuming protein drinks recently. She finds it challenging to decide what to eat for breakfast as she is not a regular breakfast eater. She urinates in the morning and wears pull-ups to bed. She does not feel hungry and has no desire to eat. She had a consultation with a neurologist yesterday who prescribed gabapentin. SUBJECTIVE: MEDICATIONS: Current Outpatient Medications Medication Instructions acetaminophen (TYLENOL) 1,000 mg, Every 8 hours PRN baclofen (LIORESAL) 10 mg, Oral, Every 8 hours bisacodyl (Dulcolax) 10 MG suppository Daily PRN brimonidine (AlphaGAN P) 0.2 % ophthalmic solution 2 drops, 3 times daily calcium carbonate (TUMS) 500 mg, 3 times daily PRN carbidopa-levodopa (Sinemet) 25-100 MG tablet 1 tablet, 4 times daily carbidopa-levodopa CR (Sinemet CR) 25-100 MG ER tablet 2 tablets, 2 times daily cholecalciferol (VITAMIN D3) 25 mcg, Daily gabapentin (Neurontin) 100 MG capsule Start with 1 capsule(100 mg) three times a day, and if tolerated well increase dose further to 2 caps(200 mg) three times daily after 2 weeks. hyoscyamine (ANASPAZ,LEVSIN) 0.125 mg, Every 4 hours PRN ibandronate (BONIVA) 150 mg, Oral, Every 30 days, Take in morning with full glass of water on an empty stomach. No food, drink, meds, or lying down for 60 minutes after. LORazepam (ATIVAN) 0.25 mg, Oral, Every 8 hours PRN megestrol (MEGACE) 20 mg, Oral, Daily Melatonin 5 MG capsule 1 tablet, Nightly mirtazapine (REMERON) 30 mg, Oral, Nightly omeprazole (PRILOSEC) 40 mg, Oral, Daily before breakfast, Do not crush or chew. ondansetron ODT (ZOFRAN-ODT) 4 mg, Every 8 hours PRN potassium chloride CR (Klor-Con M20) 20 MEQ ER tablet 20 mEq, 2 times daily psyllium (Metamucil) 58.6 % packet 1 packet, Daily rivastigmine (EXELON) 3 mg, 2 times daily sertraline (ZOLOFT) 150 mg, Oral, Daily timolol (Timoptic) 0.5 % ophthalmic solution 1 drop, Daily traMADol (Ultram) 50 MG tablet Every 6 hours PRN REVIEW OF SYMPTOMS: Review of Systems Respiratory: Negative. Cardiovascular: Negative. OBJECTIVE: Visit Vitals BP 102/62 (BP Location: Left arm, Patient Position: Sitting, BP Cuff Size: Adult) Pulse 103 Resp 20 Ht 5' 1 Wt 74 lb 6.4 oz SpO2 99% BMI 14.06 kg/m Smoking Status Never BSA 1.2 m Physical Exam Constitutional: Appearance: Normal appearance. She is normal weight. HENT: Head: Normocephalic and atraumatic. Nose: Nose normal. Mouth/Throat: Mouth: Mucous membranes are moist. Eyes: Pupils: Pupils are equal, round, and reactive to light. Cardiovascular: Rate and Rhythm: Normal rate and regular rhythm. Heart sounds: No murmur heard. Pulmonary: Effort: Pulmonary effort is normal. Breath sounds: Normal breath sounds. No wheezing or rhonchi. Musculoskeletal: General: No swelling. Cervical back: Normal range of motion and neck supple. Right lower leg: No edema. Left lower leg: No edema. Skin: General: Skin is warm and dry. Findings: No rash. Neurological: Mental Status: She is alert and oriented to person, place, and time. Sensory: No sensory deficit. Gait: Gait normal. Psychiatric: Mood and Affect: Mood normal. Thought Content: Thought content normal. Judgment: Judgment normal. ASSESSMENT AND PLAN: Assessment/Plan Problem List Items Addressed This Visit Dysphagia - Primary Relevant Orders Ambulatory referral to Speech Therapy PRESSFITTER videofluoroscopic swallow study Ambulatory referral to Nutrition Services Other Visit Diagnoses Weight loss Relevant Medications megestrol (Megace) 40 MG tablet Other Relevant Orders Ambulatory referral to Nutrition Services Assessment & Plan 1. Weight loss. She has experienced significant weight loss, now down to 74 pounds. Despite initiating Megace two weeks ago, she has continued to lose weight. An increase in the dose of Megace is recommended to stimulate appetite. She will be referred to the ER for potential admission and expedited testing, including an EGD and MRCP. A dietitian consultation is also advised. 2. Dysphagia. She reports difficulty swallowing, which may be related to an esophageal motility issue. A swallow study will be conducted to evaluate her swallowing function. She will be referred to a speech therapist for swallowing exercises. 3. Potential gallbladder stone. An ultrasound of her gallbladder suggested a possible retained stone. An MRCP is recommended to further investigate this finding. 4. Anxiety. She reports feeling anxious, which may be contributing to her symptoms. She has been taking Ativan, but it does not seem to help with vomiting. The dosage and administration of Ativan will be reviewed to ensure she is receiving it promptly. Increase megace. Powerpudding bettween meals , swallow study , consult [employer] saw operator and speech therapy Due to severity of symptoms and delays in testing recommend er visit to see if she mets criteria for admission Recheck in 3 days documented in this encounter [facility] 03-07-2024 History of Present illness Narrative Images from the original note were not included. [address] [place] [id number] Patient: Mirian Gregg Date of : 1955 Encounter Date: 03/07/2024 Patient Care Team: Shea Vogel MD as PCP - General (Family Medicine) Cricket Sarkar MD (Ophthalmology) History of Present Illness: The patient is a 68 y.o. female, an established patient, and is here for idiopathic parkinson's disease. She is accompanied to the clinic today by her friend. She was last seen in clinic on 10/01/23. Summary of Condition: Hand preference: right Parkinson's disease checklist(reviewed and updated on 03/07/24): Onset: 2009. Off time and fluctuations: reports having off-times(increased muscle rigidity, difficulty with ambulation due to stiffness) more frequently at the last clinic visit--> at which time her medication regimen was reviewed and the suspicion arose that she perhaps was not getting her parkinsonian medicines appropriately. At that time we communicated with the nursing staff and made sure that they had the appropriate regimen for the patient's Sinemet IR and CR. Since that change, it appears the patient's motor symptoms have been somewhat better controlled. She denies having decreased frequency of off times. She also reports decreased frequency of freezing spells. Reports having only 1 or 2 falls over the last 5 months. Currently ambulating using a walker. [facility] Sinemet regimen: 6AM: Sinemet IR 25/100 x2 - Sinemet CR 50/200 x 1 or 25/100 X 2 10:00 AM: Sinemet IR 25/100 x2 2:00 PM: Sinemet IR 25/100 x2 6:00 PM sinemet IR 25/100 x 1 and sinemet CR 50/200 x1 or 25/100 X 2 Gait: Moderate gait instability, stooped posture, shuffling gait,. Currently ambulating with a walker. Some improvement in gait instability since the last clinic visit. Freezing: Decrease in frequency and severity of readings spell since the last clinic visit. Falls: Has 1 or 2 falls since the last clinic visit. Denies any traumatic injury as a result of the falls. Tremors: Tremors bilateral upper extremities, left more than right, usually resting, can involve the left leg. Worsens with anxiety.. Have been fairly well controlled since the last visit Speech: Voice has been getting softer, with the passage of time. No significant change since the last clinic visit Swallowing: Denies problems. ADLs: Intact regarding toileting, bathing, feeding, ambulation, occasionally needs help with buttoning dresses, tying her left sided shoe laces. IADLs: Intact regarding using telephone, food preparation. Currently the nursing staff at the assisted living facility is managing her medications. She is currently not driving. Her family is managing her finances. Constipation: Denies sleep fragmentation, vivid dreams or dream enacting behavior. Has PMLD, father had a history of these as well. Occassionally wakes her up. Memory: Patient, friends, family and PCP have been concerned about forgetfulness. Patient was started on Exelon 4.6 mg patch during the hospitalization. No significant change in memory or cognitive symptoms appreciated Depression/Anxiety: Has suffered with severe anxiety over the earlier part of 2022, however over the last few months things seemed to have improved significantly.. Reports decrease in the number of anxiety attacks. Has been following up regularly with psychiatrist. Was tried on escitalopram and citalopram which did not seem to help. Was eventually started on Zoloft and that seems to have helped tremendously. Also on lorazepam 0.5 mg t.i.d.. Hydroxyzine 25 mg p.o. to 6 hourly p.r.n., Hallucinations: Denies having any visual hallucinations since last clinic visit. Lightheadedness/syncope: patient reports having a history of frequent syncopal and presyncopal episodes 1-2 years ago. Denies having any syncopal or presyncopal episodes over the last year. Other: anosmia since 1999 when she had surgery for endometrial cancer s/p DOMENIC+BSO. Of note, patient also had radiation therapy and chemotherapy at the time. Reports developing numbness and paresthesias affecting the distal upper and lower extremities since the chemotherapy. Sensory disturbances seem to be intermittent however at this point appear to be moderately disabling for the patient\. It seems a lot of her medicines for neuropathic pain, arthropathy related pain were discontinued at the last hospitalization. She would like to start gabapentin, at a lower dose to see if it would help with the neuropathic pain and muscle cramping affecting the lower extremities. Symptoms affect the lower extremities on a daily basis, intermittently. Occasionally can cause cramping bilateral feet, right worse than left. micrographia +. Miscellaneous: - at the Previous clinic visit the patient was complaining of intermittent muscle cramping involving the distal lower extremities, right worse than left. Also reports having intermittent numbness and tingling affecting the distal upper extremities. 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 She was advised to get an EMG/NCS of the lower extremities at the last clinic visit. She had the study in November 2022 and it shows evidence of mild right L5/S1 radiculopathy vs peroneal motor neuropathy, along with decreased recruitment on EMG in bilateral abductor hallucis. - MRI lumbar spine on 07/09/2022 showed: IMPRESSION: 1. Moderate acute L1 compression fracture with mild posterior retropulsion and associated [id number] focal central stenosis at L1. No cord compression. No discrete epidural hematoma. 2. Possible small right paracentral disc protrusion at T12-L1, difficult to confirm on this exam. No associated central stenosis. There is moderate right T12-L1 neural foraminal narrowing. 3. Multilevel degenerative changes as detailed above. 4. 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 5. 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 6. Chronic bilateral sacral insufficiency fractures. Neurosurgery was involved, who performed a vertebral kyphoplasty on 07/10. Patient did well after surgery and had no complications. Patient was eventually discharged to SNF for a few weeks. Did physical therapy which seemed to help moderately with gait instability. Has had infrequent falls ever since Allergies: Wellbutrin [bupropion hcl] Review of Relevant Patient Questionnaires: HIT 6: No data to display PHQ-9: 03/07/2024 9:23 AM 10/30/2022 9:48 AM 03/13/2022 9:05 AM PM AMB PHQ 9 Little interest or pleasure in doing things 2 1 0 Feeling down, depressed, or hopeless 2 1 0 Trouble falling or staying asleep, or sleeping too much 2 1 0 Feeling tired or having little energy 2 1 0 Poor appetite or overeating 1 0 0 Feeling bad about yourself - or that you are a failure or have let yourself or your family down 0 0 0 Trouble concentrating on things, such as reading the newspaper or watching television 0 0 0 Moving or speaking so slowly that other people could have noticed. Or the opposite - being so fidgety or restless that you have been moving around a lot more than usual 0 0 0 Thoughts that you would be better off , or of hurting yourself in some way 0 0 0 Total Score 9 4 0 If you checked off any problems, how difficult have these problems made it for you to do your work, take care of things at home, or get along with other people? Not difficult at all Not difficult at all Not difficult at all PHQ-15: No data to display RICHARD-7: No data to display PTSD: No data to display [place]: No data to display AL-10: No data to display Past Medical, Family, Surgical, and Social History Update: The following portions of the patient's history were reviewed and updated as appropriate: allergies, current medications, past family history, past medical history, past social history, past surgical history and problem list. Past Medical History: Diagnosis Date Anemia Back pain Depression Endometrial cancer ([facility]) 2004 Idiopathic hypotension Left atrial enlargement Low back pain Neck pain Osteoporosis Parkinsonism ([facility]) Shaking Left Hand Shingles Skin carcinoma Visual impairment Family History Problem Relation Age of Onset Arthritis Mother Heart disease Mother Hypertension Mother Kidney disease Mother Breast cancer Neg Hx Past Surgical History: Procedure Laterality Date AUGMENTATION VERTEBRAL KYPHOPLASTY SPINE L 1 N/A 07/10/2022 Performed by Emmanuel Dela Cruz MD at [facility] BREAST BIOPSY 2004 stereotactic benign COLONOSCOPY N/A 10/08/2017 Performed by Sedrick Huizar MD at [facility] HYSTERECTOMY 05/24/2004 [facility] [place], [place] INSERTION INTRAMEDULLARY TROCHANTERIC FIXATION NAIL HIP Left 09/14/2021 Performed by Joshua Ramos MD at [facility] SELECTIVE LASER TRABECULOPLASTY Right 02/24/2019 SLT 360 OD (skipping narrow areas) JCB TUBAL LIGATION 2000 Current Outpatient Medications Medication Sig Dispense Refill acetaminophen (TYLENOL EXTRA STRENGTH) 500 mg tablet Take 1 tablet (500 mg total) by mouth every 6 (six) hours as needed for pain. baclofen (LIORESAL) 10 mg tablet Take 1 tablet (10 mg total) by mouth in the morning and 1 tablet (10 mg total) before bedtime. Morning and 2pm. busPIRone (BUSPAR) 7.5 mg tablet Take 1 tablet (7.5 mg total) by mouth in the morning. calcium carbonate (TUMS) 200 mg elemental (500 mg) chewable tablet Chew 2.5 tablets (500 mg total) and swallow in the morning. carbidopa-levodopa (SINEMET CR) 25-100 mg per CR tablet Take 2 tablets at 6 am, and 2 tablets at 6 pm carbidopa-levodopa (SINEMET) 25-100 mg per tablet Take 2 tablets at 6 am, 2 tablets at 10 am, 2 tablet at 2 pm, 1 tablet at 6 pm. Take 30-45 mins before or after meals. cholecalciferol, vitamin D3, 2,000 units capsule Take 1 capsule (2,000 Units total) by mouth in the morning. ibandronate (BONIVA) 150 mg tablet Take 1 tablet (150 mg total) by mouth every 30 (thirty) days. loperamide (IMODIUM) 2 mg capsule Take 1 capsule (2 mg total) by mouth 4 (four) times a day as needed. mirtazapine (REMERON) 15 mg tablet Take 2 tablets (30 mg total) by mouth nightly. rivastigmine (EXELON) 3 mg capsule Take 1 capsule (3 mg total) by mouth in the morning and 1 capsule (3 mg total) before bedtime. 60 capsule 5 timolol (TIMOPTIC) 0.5 % ophthalmic solution traMADoL (ULTRAM) 50 mg tablet Take by mouth every 6 (six) hours as needed. acetaminophen (TYLENOL EXTRA STRENGTH) 500 mg tablet Take 2 tablets (1,000 mg total) by mouth every 8 (eight) hours as needed. (Patient not taking: Reported on 03/07/2024) brimonidine (ALPHAGAN) 0.2 % ophthalmic solution Administer 2 drops to both eyes every 12 (twelve) hours. (Patient not taking: Reported on 03/07/2024) melatonin (CIRCADIN) capsule Take by mouth. (Patient not taking: Reported on 03/07/2024) omeprazole (PriLOSEC) 40 mg capsule (Patient not taking: Reported on 03/07/2024) pregabalin (LYRICA) 25 mg capsule Take 1 capsule (25 mg total) by mouth in the morning and 1 capsule (25 mg total) before bedtime. (Patient not taking: Reported on 03/07/2024) 60 capsule 3 sertraline (ZOLOFT) 100 mg tablet (Patient not taking: Reported on 03/07/2024) sertraline (ZOLOFT) 50 mg tablet Take 1 tablet (50 mg total) by mouth in the morning. Take with 100mg tablet. (Patient not taking: Reported on 03/07/2024) sertraline (ZOLOFT) 50 mg tablet Take 3 tablets (150 mg total) by mouth in the morning. (Patient not taking: Reported on 03/07/2024) No current facility-administered medications for this visit. (All medications reviewed and updated by provider since last office visit or hospitalization) Tobacco History: Social History Tobacco Use Smoking Status Never Smokeless Tobacco Never (If patient a smoker, smoking cessation counseling offered) Social History: Social History Substance and Sexual Activity Alcohol Use No Review of Systems: 14 systems were reviewed and negative except those mentioned in HPI . Physical Exam: Vitals: Vitals: 03/07/24 0916 BP: 136/75 Pulse: 106 Weight: 39.9 kg (87 lb 14.4 oz) Height: 154.9 cm (5' 1 ) Patient consulted for exercise: encouragement to exercise. Patient looks malnourished, has lost lot of weight. Neurological Physical Exam: Physical Exam: Mental Status: Orientation: Oriented. Level of consciousness: alert. Follows commands: 3 step. Knowledge: good. Intact short-term memory and intact long-term memory. Vocabulary is normal. Attention span is normal. Concentration is normal. Speech: Normal quality and patient has normal vocabulary. Bradyphemia. Language: Normal. No acalculia, no anomia, not reading impaired and no paraphasic errors. Bradyphrenia +. Masked Faces+. Mild psychomotor slowing.. Cranial Nerves: CN II: Visual georges full to confrontation. CN II - Visual Acuity: Normal with correction in right eye and left eye. Optic Discs: No pallor/atrophy on right or left. No edema on right or left. Pupils: Relative afferent pupillary defect absent. CN III, IV, : CN III: PERRLA, EOM full, no nystagmus, no ptosis and no MICHAELA. Pupils: right pupil regular and left pupil regular. Pupil Size: right = left. Pupil reactivity: Right and left pupil constrict(s) to light. Consensual response intact on right and Consensual response intact on left. Nystagmus: end-gaze only positive. CN V: Facial sensation intact to pin. CN VII: Facial expression fully symmetric. CN VIII: CN VIII normal. Hearing intact. CN IX, X: CN IX and X normal. CN XI: CN XI normal. CN XII: CN XII normal. Tongue protrudes midline. Motor: Muscle Bulk: Normal. Muscle Tone: Right upper extremity cogwheel rigidity present. Left upper extremity cogwheel rigidity present. Right lower extremity muscle tone normal.Right lower extremity cogwheel rigidity present. Left lower extremity muscle tone normal. Left lower extremity cogwheel rigidity present. Moderate cogwheel type muscle rigidity in left upper extremity mild cogwheeling in the right upper extremity. Moderate bradykinesia in left upper extremity before the Sinemet dose, mild after the dose.. Power: Right bradykinesia and left bradykinesia. Pronator drift: None. Muscle Strength: Mild bradykinesia appreciated in bilateral upper extremities, left worse than right. Mild generalized weakness Fasciculations: No Myotonia: No myotonia. Sensory: Light touch normal in upper and lower extremities. Vibration normal in upper and lower extremities. Proprioception: Normal in upper and lower extremities. Gait/Coord/DTR: Abnormal Gait: stooped and abnormal gait (Decreased stride length, decreased pace of walking, decreased associated arm movements.. No shuffling appreciated. Turns EN bloc). Unable to tandem walk, unable to heel walk on right, unable to heel walk on left, and . Coordination: Normal. Tremor: Positive Findings: resting tremor right and resting tremor on left (Tremor and bradykinesia worse on the left.). Negative findings: no dysdiadochokinesia right, no dysdiadochokinesia left, no past pointing right, no past pointing left, no pill rolling tremor on right, no pill rolling tremor on left and no right head resting tremor. Mild postural action tremor in bilateral upper extremities, left worse than right.. Involuntary Movements: no abnormal movement. Myoclonus: None. Reflexes: Right brachioradialis 2+ Left brachioradialis 2+ Right biceps 2+ Left biceps 2+ Right patellar 2+ Left patellar 2+ Right achilles 1+ Left achilles 1+ Right plantar downgoing Left plantar downgonig Right ankle clonus absent and left ankle clonus absent. Patient cannot stand up with her hands crossed across her chest. Currently able to ambulate without walker or a cane. Romberg's and retropulsion test are negative.. General Exam: Constitutional: Well-developed, well-nourished . Eyes: Normal appearance, no icterus. Right Ear: Hearing normal. Left Ear: Hearing normal. Skin: Warm and dry Psychiatric: Normal mood/affect, good eye contact, behaving normally, normal thought content, normal judgment and normal psychomotor. MoCA Score: 26/30Pulmonary: Effort: Pulmonary effort is normal. Data Reviewed: Lab Results Component Value Date CREATININE 0.70 08/11/2022 BUN 25 08/11/2022 K 4.3 08/11/2022 CL 106 08/11/2022 CO2 28 08/11/2022 Lab Results Component Value Date WBC 4.9 08/11/2022 HGB 13.8 08/11/2022 HCT 40.7 08/11/2022 MCV 89 08/11/2022 PLT 268 08/11/2022 Lab Results Component Value Date ALT 8 07/08/2022 AST 29 07/08/2022 ALKPHOS 66 07/08/2022 Lab Results Component Value Date INR 1.0 07/08/2022 INR 1.0 09/13/2021 PROTIME 10.8 07/08/2022 PROTIME 11.5 09/13/2021 Lab Results Component Value Date PTT 24 (L) 07/08/2022 Diagnostic Study Results: CT head 07/08/2022: No acute intracranial pathology identified. CTA No results found. MRI referral to [facility] Angio No results found. Assessment and Plan: Mirian was seen today for follow-up. Diagnoses and all orders for this visit: Parkinson's disease without dyskinesia, with fluctuating manifestations (CMS-HCC) Gait instability Muscle cramping Chemotherapy-induced neuropathy (CMS-HCC) PLMD (periodic limb movement disorder) Anxiety Depression, unspecified depression type History of malignant neoplasm of endometrium History of syncope Panic attacks Lumbar radiculopathy Falls, sequela Lumbar spondylosis Forgetfulness Clinical impression: Parkinson disease, idiopathic, with motor fluctuations and non motor symptoms(severe anxiety, restlessness, depression). --> reports having off-times(increased muscle rigidity, difficulty with ambulation due to stiffness) more frequently at the last clinic visit--> at which time her medication regimen was reviewed and the suspicion arose that she perhaps was not getting her parkinsonian medicines appropriately. At that time we communicated with the nursing staff and made sure that they had the appropriate regimen for the patient's Sinemet IR and CR. Since that change, it appears the patient's motor symptoms have been somewhat better controlled. She denies having decreased frequency of off times. She also reports decreased frequency of freezing spells. Reports having only 1 or 2 falls over the last 5 months. Currently ambulating using a walker. Current Sinemet IR and CR regimen: 6AM: Sinemet IR 25/100 x2 - Sinemet CR 50/200 x 1 or 25/100 X 2 10:00 AM: Sinemet IR 25/100 x2 2:00 PM: Sinemet IR 25/100 x2 6:00 PM sinemet IR 25/100 x 1 and sinemet CR 50/200 x1 or 25/100 X 2 Generalized anxiety disorder: Has suffered with severe anxiety over the earlier part of 2022, however over the last few months things seemed to have improved significantly.. Reports decrease in the number of anxiety attacks. Has been following up regularly with psychiatrist. Was tried on escitalopram and citalopram which did not seem to help. Was eventually started on Zoloft and that seems to have helped tremendously. Also on lorazepam 0.5 mg t.i.d.. Hydroxyzine 25 mg q.i.d. p.r.n. posttraumatic L1 compression fracture s/p kyphoplasty 07/10/22: Doing quite well at this time. Following up with spine surgeon lumbar degenerative disc and joint disease--> stable at this time. chemotherapy-induced neuropathy: Reports developing numbness and paresthesias affecting the distal upper and lower extremities since the chemotherapy in 1999. Sensory disturbances seem to be intermittent and functionally non-disabling at this time. Symptoms affect the lower extremities on a daily basis, intermittently. Occasionally can cause cramping bilateral feet, right worse than left. Interval history 03/02/2023: at the last clinic visit the patient was complaining of intermittent muscle cramping involving the distal lower extremities, right worse than left. Also reports having intermittent numbness and tingling affecting the distal upper extremities. 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 She was advised to get an EMG/NCS of the lower extremities at the last clinic visit. She had the study in November 2022 and it shows evidence of mild right L5/S1 radiculopathy vs peroneal motor neuropathy, along with decreased recruitment on EMG in bilateral abductor hallucis. Appears to have reasonable strength and sensations in bilateral distal lower extremities on examination. Has previously been on Flexeril, Lyrica which were discontinued at the previous hospitalization due to concern that they were causing sedation. Patient has reported worsening of lower extremity neuropathy pain since discontinuing these medicine. She would like to start low-dose of gabapentin, side-effect profile was discussed with the patient in detail. Will start with 100 mg t.i.d. and titrate the dose up according to clinical response. She is hospital prescribe baclofen 10 mg b.i.d. for management of lower back pain, and lower extremity pain. forgetfulness/short-term memory problems: [place] , Earlier this year. Reports cognition has been stable since the last clinic visit. Currently on Exelon 3 mg capsule p.o. b.i.d... 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 At this point would recommend optimizing sleep, mood and anxiety disorders, maintaining diary/log/to do lists, brain exercises etc. patient's clinical picture is not consistent with dementia at this time. Side-effect profile was discussed with the patient and her friend in detail. Consider neuropsychological testing in the future Recommendations: - strongly recommend that the patient get her Sinemet IR and CR exactly as they have been prescribed. Patient will continue her Sinemet CR and IR regimen as highlighted above. Patient has been instructed to take Sinemet 30-45 minutes before snacks/meals. - if the patient continues to get her Sinemet doses at haphazard times, will switch the patient to Stalevo for better control. - continue Exelon 3 mg p.o. b.i.d. Exelon patch previously prescribed was not affordable. 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 Patient denies having any signs or symptoms of dysautonomia over the last year. Blood pressure appears to be fairly well controlled since the last clinic visit. Will follow clinically at this time. - will give a trial of low-dose gabapentin 100 mg t.i.d., he has the dose according to clinical response. - continue Zoloft, PO hydroxyzine and PO ativan for management of generalized anxiety disorder with panic attacks. Follow-up with psychiatrist regularly. Strongly recommend CBT, relaxation techniques, biofeedback - supportive care - regular follow-up with PCP. - return to clinic in four months. Problem List Nervous and Auditory Parkinson's disease (CMS-HCC) - Primary Chemotherapy-induced neuropathy (CMS-HCC) Lumbar radiculopathy Musculoskeletal and Integument Muscle cramping Other Anxiety PLMD (periodic limb movement disorder) Depression History of malignant neoplasm of endometrium Gait instability Falls, sequela History of syncope Panic attacks Forgetfulness Follow-up: 4 months. Willian Delacruz MD Vascular Neurologist [facility] Neurology ([facility]) I have personally participated in the care of this patient. I have reviewed all pertinent clinical information, including history, physical exam, investigation results and plan. I spent 45 minutes caring for this patient, and more than 50% of that time was spent on counseling the patient/money manager/care team and coordinating care. Important Notice: This note was created with the assistance of a speech recognition program. While intending to generate a timely document that accurately reflects the content of the encounter, no guarantee can be provided that every grammatical or spelling mistake has been or will be identified or corrected. Thank you for your understanding. documented in this encounter [employer] 02-23-2024 History of Present illness Narrative Mirian Gregg is a 68 y.o. female presents with chief complaint of Follow-up (Patient presents today for 1 week follow up on weight loss/stomach issues. ) HPI: HPI History of Present Illness The patient is a 68-year-old female who presents for evaluation of nausea and vomiting. She is accompanied by an adult female. She reports experiencing episodes of dry heaves and severe vomiting, which occur intermittently, sometimes every other week. No episodes for 5 days Her stomach often makes loud noises. She has not noticed any improvement in her appetite with her current medication, but she does report a decrease in the severity of her nausea compared to previous episodes. She has gained weight recently, only to lose it again. She has not yet consulted a dietitian. She has been under significant stress due to the poor quality of food provided at her residence, which she believes may be contributing to her symptoms. She also experiences panic attacks, which occasionally coincide with her nausea and vomiting. Despite taking Ativan for her panic attacks, she does not find it effective in alleviating her vomiting. She notes that her panic attacks and vomiting do not usually occur simultaneously. SUBJECTIVE: MEDICATIONS: Current Outpatient Medications Medication Instructions acetaminophen (TYLENOL) 1,000 mg, Oral, Every 8 hours PRN baclofen (LIORESAL) 10 mg, Oral, Every 8 hours bisacodyl (Dulcolax) 10 MG suppository Rectal, Daily PRN brimonidine (AlphaGAN P) 0.2 % ophthalmic solution 2 drops, Both Eyes, 3 times daily calcium carbonate (TUMS) 500 mg, Oral, 3 times daily PRN carbidopa-levodopa (Sinemet) 25-100 MG tablet 1 tablet, Oral, 4 times daily, Also taking Carb-lev ER BID carbidopa-levodopa CR (Sinemet CR) 25-100 MG ER tablet 2 tablets, Oral, 2 times daily cholecalciferol (VITAMIN D3) 25 mcg, Oral, Daily hyoscyamine (ANASPAZ,LEVSIN) 0.125 mg, Oral, Every 4 hours PRN ibandronate (BONIVA) 150 mg, Oral, Every 30 days, Take in morning with full glass of water on an empty stomach. No food, drink, meds, or lying down for 60 minutes after. LORazepam (ATIVAN) 0.25 mg, Oral, Every 8 hours PRN megestrol (MEGACE) 20 mg, Oral, Daily Melatonin 5 MG capsule 1 tablet, Oral, Nightly mirtazapine (REMERON) 30 mg, Oral, Nightly omeprazole (PRILOSEC) 40 mg, Oral, Daily before breakfast, Do not crush or chew. ondansetron ODT (ZOFRAN-ODT) 4 mg, Oral, Every 8 hours PRN potassium chloride CR (Klor-Con M20) 20 MEQ ER tablet 20 mEq, Oral, 2 times daily psyllium (Metamucil) 58.6 % packet 1 packet, Oral, Daily, Mix and drink with at least 8 ounces of water or juice. rivastigmine (EXELON) 3 mg, Oral, 2 times daily sertraline (ZOLOFT) 150 mg, Oral, Daily timolol (Timoptic) 0.5 % ophthalmic solution 1 drop, Both Eyes, Daily traMADol (Ultram) 50 MG tablet Oral, Every 6 hours PRN ALLERGIES: Allergies Allergen Reactions Bupropion Unknown SURGICAL HISTORY: Past Surgical History: Procedure Laterality Date BONE MARROW BIOPSY 07/10/2022 L1 BREAST BIOPSY Right 2003 COLONOSCOPY 2009 FIXATION KYPHOPLASTY LUMBAR SPINE 07/10/2022 Balloon Kyphoplasty w elevation of fracture and cement augmentation of L1 vertebral body HIP FRACTURE SURGERY Left 09/14/2021 HYSTERECTOMY 2005 Total IN LASER SURGERY OF EYE Right 02/2019 TUBAL LIGATION Bilateral 2001 FAMILY HISTORY: Family History Problem Relation Name Age of Onset Hypertension Mother Osteoporosis Mother Nephrolithiasis Mother Alzheimer's disease Father Migrated Family History Mental illness Father Other (blader cancer) Brother Heart disease Maternal Grandmother Heart disease Maternal Grandfather Mental illness Paternal Grandmother Heart disease Paternal Grandfather Schizophrenia Nephew Alcohol abuse Neg Hx Drug abuse Neg Hx SOCIAL HISTORY: Social History Tobacco Use Smoking status: Never Smokeless tobacco: Never Vaping Use Vaping status: Never Used Substance Use Topics Alcohol use: Not Currently Comment: none, Caffeine intake: none Drug use: Never Depression: Not at risk (12/30/2023) PHQ-2 PHQ-2 Score: 2 Recent Concern: Depression - At risk (12/13/2023) PHQ-2 PHQ-2 Score: 3 REVIEW OF SYMPTOMS: Review of Systems OBJECTIVE: Visit Vitals BP 116/72 (BP Location: Left arm, Patient Position: Sitting, BP Cuff Size: Adult) Pulse 62 Resp 18 Ht 5' 1 Wt 81 lb SpO2 97% BMI 15.30 kg/m Smoking Status Never BSA 1.26 m Physical Exam Constitutional: Comments: Frail with resting tremor in wheelchair Musculoskeletal: Cervical back: Normal range of motion and neck supple. Skin: General: Skin is warm and dry. Neurological: General: No focal deficit present. Mental Status: She is alert and oriented to person, place, and time. Mental status is at baseline. Psychiatric: Mood and Affect: Mood normal. Behavior: Behavior normal. Thought Content: Thought content normal. Judgment: Judgment normal. ASSESSMENT AND PLAN: Assessment/Plan Problem List Items Addressed This Visit Generalized anxiety disorder (CMS/HCC) Panic attack (CMS/HCC) Adjustment disorder with anxious mood (CMS/HCC) Glaucoma (CMS/HCC) Major depressive disorder, single episode, moderate (HCC) (CMS/HCC) Other Visit Diagnoses Acute cystitis without hematuria - Primary Weight loss Assessment & Plan 1. Nausea and vomiting. The patient experiences nausea and vomiting episodes, sometimes associated with panic attacks. She reports that Ativan 0.25 mg does not alleviate the vomiting episodes. The current medication regimen will be maintained. She was advised to take Ativan 0.25 mg three times daily as needed. A consultation with a dietitian was recommended to help manage her diet and advocate for her food preferences. 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 Panic attacks. The patient experiences panic attacks, sometimes accompanied by nausea and vomiting. She has been advised to be more aggressive with Ativan 0.25 mg, taking it three times daily as needed. She was reassured that it is important to manage her symptoms effectively, even if it means using Ativan more frequently. Follow-up Return in 2 weeks for follow up. documented in this encounter [facility] 02-16-2024 History of Present illness Narrative Mirian Gregg is a 68 y.o. female presents with chief complaint of Vomiting (Patient presents today for vomiting/dry heaving. Patient states that this has been ongoing for months. Patient states that the vomit is yellow, clear, and sticky. ) HPI: HPI History of Present Illness The patient is a 68-year-old female who presents for evaluation of nausea. She is accompanied by an adult male. Despite being on Prilosec, she continues to experience morning nausea, which intensifies after eating. She has lost her appetite and vomited just before leaving home today. She finds it difficult to swallow dry toast and experienced stomach discomfort after consuming chicken noodle soup due to its high grease content. She takes salt tablets twice daily and occasionally uses Tums. Her diarrhea has improved, but she still experiences loose bowel movements occasionally. She has a scheduled appointment with a make up man in May 2023. She still has her gallbladder and has experienced pain and nausea associated with it in the past. The pain typically originates in the middle of her abdomen, wraps around her side, and extends to her back. She has completed a course of Cipro for a urinary tract infection (UTI). She wears pull-ups because when she first started having this problem, she would stand up and automatically urinate without being able to hold it. Sometimes she is given pills to help her sleep, and then she does not have enough time to get up in the middle of the night. The girls always come and get her if she needs to go to the bathroom, but from the bed to the bathroom, she cannot hold it that long. If she is feeling okay, she can get to the bathroom on her own. She gets up in the middle of the night, and they get upset because she has fallen before, so she does not do that anymore. She is taking Sinemet. SUBJECTIVE: MEDICATIONS: Current Outpatient Medications Medication Instructions acetaminophen (TYLENOL) 1,000 mg, Oral, Every 8 hours PRN baclofen (LIORESAL) 10 mg, Oral, Every 8 hours bisacodyl (Dulcolax) 10 MG suppository Rectal, Daily PRN brimonidine (AlphaGAN P) 0.2 % ophthalmic solution 2 drops, Both Eyes, 3 times daily calcium carbonate (TUMS) 500 mg, Oral, 3 times daily PRN carbidopa-levodopa (Sinemet) 25-100 MG tablet 1 tablet, Oral, 4 times daily, Also taking Carb-lev ER BID carbidopa-levodopa CR (Sinemet CR) 25-100 MG ER tablet 2 tablets, Oral, 2 times daily cholecalciferol (VITAMIN D3) 25 mcg, Oral, Daily ciprofloxacin (CIPRO) 500 mg, Oral, 2 times daily, X7 days fish oil concentrate 1 g, Oral, Daily hyoscyamine (ANASPAZ,LEVSIN) 0.125 mg, Oral, Every 4 hours PRN ibandronate (BONIVA) 150 mg, Oral, Every 30 days, Take in morning with full glass of water on an empty stomach. No food, drink, meds, or lying down for 60 minutes after. LORazepam (ATIVAN) 0.25 mg, Oral, Every 8 hours PRN Melatonin 5 MG capsule 1 tablet, Oral, Nightly metroNIDAZOLE (FLAGYL) 500 mg, Oral, 2 times daily, X7 days mirtazapine (REMERON) 30 mg, Oral, Nightly omeprazole (PRILOSEC) 40 mg, Oral, Daily before breakfast, Do not crush or chew. ondansetron ODT (ZOFRAN-ODT) 4 mg, Oral, Every 8 hours PRN potassium chloride CR (Klor-Con M20) 20 MEQ ER tablet 20 mEq, Oral, 2 times daily psyllium (Metamucil) 58.6 % packet 1 packet, Oral, Daily, Mix and drink with at least 8 ounces of water or juice. rivastigmine (EXELON) 3 mg, Oral, 2 times daily sertraline (ZOLOFT) 150 mg, Oral, Daily sodium chloride 1 g, Oral, 2 times daily timolol (Timoptic) 0.5 % ophthalmic solution 1 drop, Both Eyes, Daily traMADol (Ultram) 50 MG tablet Oral, Every 6 hours PRN ALLERGIES: Allergies Allergen Reactions Bupropion Unknown SURGICAL HISTORY: Past Surgical History: Procedure Laterality Date BONE MARROW BIOPSY 07/10/2022 L1 BREAST BIOPSY Right 2003 COLONOSCOPY 2009 FIXATION KYPHOPLASTY LUMBAR SPINE 07/10/2022 Balloon Kyphoplasty w elevation of fracture and cement augmentation of L1 vertebral body HIP FRACTURE SURGERY Left 09/14/2021 HYSTERECTOMY 2005 Total IN LASER SURGERY OF EYE Right 02/2019 TUBAL LIGATION Bilateral 2000 FAMILY HISTORY: Family History Problem Relation Name Age of Onset Hypertension Mother Osteoporosis Mother Nephrolithiasis Mother Alzheimer's disease Father Migrated Family History Mental illness Father Other (blader cancer) Brother Heart disease Maternal Grandmother Heart disease Maternal Grandfather Mental illness Paternal Grandmother Heart disease Paternal Grandfather Schizophrenia Nephew Alcohol abuse Neg Hx Drug abuse Neg Hx SOCIAL HISTORY: Social History Tobacco Use Smoking status: Never Smokeless tobacco: Never Vaping Use Vaping status: Never Used Substance Use Topics Alcohol use: Not Currently Comment: none, Caffeine intake: none Drug use: Never Depression: Not at risk (12/30/2023) PHQ-2 PHQ-2 Score: 2 Recent Concern: Depression - At risk (12/13/2023) PHQ-2 PHQ-2 Score: 3 REVIEW OF SYMPTOMS: Review of Systems Respiratory: Negative. Cardiovascular: Negative. OBJECTIVE: Visit Vitals BP 126/72 (BP Location: Left arm, Patient Position: Sitting, BP Cuff Size: Adult) Pulse 81 Resp 20 SpO2 99% Smoking Status Never Physical Exam Constitutional: Comments: Thin frail Musculoskeletal: Cervical back: Normal range of motion and neck supple. Skin: General: Skin is warm and dry. Neurological: General: No focal deficit present. Mental Status: She is oriented to person, place, and time. Mental status is at baseline. Psychiatric: Mood and Affect: Mood normal. Behavior: Behavior normal. Thought Content: Thought content normal. Judgment: Judgment normal. ASSESSMENT AND PLAN: Assessment/Plan Problem List Items Addressed This Visit Chronic gastritis without bleeding - Primary Relevant Orders Ambulatory referral to Gastroenterology US RUQ Other Visit Diagnoses Urinary incontinence, unspecified type Relevant Orders US RUQ POCT Urinalysis dipstick (Completed) Urine culture (clean catch) Weight loss Relevant Medications megestrol (Megace) 20 MG tablet Hematuria, unspecified type Relevant Orders Urinalysis with reflex microscopic (clean catch) Stop sodium chloride tablets and fish oil tablets due to increase nausea after taking Add megace due to weight loss Recheck in1 week Assessment & Plan 1. Nausea. The patient reports persistent nausea, especially in the morning, despite taking Prilosec (omeprazole). Eating worsens the nausea, and she has no desire to eat. She has experienced vomiting recently. An ultrasound of the gallbladder will be performed to rule out gallbladder issues. Megace will be initiated to stimulate appetite. Fish oil tablets will be discontinued. 2. Urinary Incontinence. The patient wears pull-ups due to urinary incontinence, which started with a previous UTI. A urine sample will be collected today to check for any current infection. 3. Medication Management. The patient will stop taking salt tablets and instead add extra salt to her food. Tramadol (Ultram), which may cause nausea, will be discontinued. 4. Gastroenterology Referral. A referral to a make up man in [place] has been arranged to expedite her evaluation, as her current appointment is scheduled for May. Follow-up Return in 1 week for follow up. documented in this encounter [facility] 02-08-2024 Telephone encounter Note Resert done OT is continuing Kandis rogel from [facility] calling with the update, Order will be faxed over to follow up this call. [facility] 02-08-2024 Miscellaneous Notes Resert done OT is continuing pebbles Kandis from [facility] calling with the update, Order will be faxed over to follow up this call. documented in this encounter [facility] 02-07-2024 Telephone encounter Note [place] from [facility] calling to let you know that he received referral for wheelchair brake extensions and they are unable to take care of this because her wheelchair came from another company. They can do it but it would be out of pocket for patient. [facility] 02-07-2024 Miscellaneous Notes Houston from [facility] calling to let you know that he received referral for wheelchair brake extensions and they are unable to take care of this because her wheelchair came from another company. They can do it but it would be out of pocket for patient. documented in this encounter [facility] 02-01-2024 History of Present illness Narrative Images from the original note were not included. Mirian Gregg is a 68 y.o. female presents with chief complaint of ER Follow-up (Patient presents today for ER follow up. Patient was seen 01/21/24 for Nausea and Vomiting at [facility].) HPI: HPI Flowsheet Row Patient Outreach from 01/27/2024 in [facility] with Carolina Maldonado RN Hospital Information Discharged To: -- [returned to the [facility]] Discharge Hospital [facility] Diagnosis nausea and vomiting Discharge Date 01/21/24 Engagement Admission Date 01/21/24 Medications Appointments Does the patient have a primary care provider? Yes Nursing Interventions Educated patient on importance of making appointment Self Management What is the home health agency? NA What Durable Medical Equipment (DME) was ordered? NA Patient Teaching What is the patient's perception of their health status since discharge? Same Is the patient/caregiver able to teach back the hierarchy of who to call/visit for symptoms/problems? PCP, Specialist, Home Health nurse, Urgent Care, ED, 911 Yes Wrap Up History of Present Illness The patient is a 68-year-old female who presents for evaluation of nausea and vomiting. She is accompanied by an adult female. She has been experiencing severe nausea and vomiting, with the most recent episode of dry heaves occurring on 01/18/2024 after consuming a peanut butter sandwich. Her symptoms have made it difficult for her to maintain her weight due to frequent bouts of diarrhea and vomiting. Despite occasional weight gains of 2 to 3 pounds, she tends to lose it all again. Her last episode of vomiting was on 01/29/2024, during which she vomited water and a yellow substance, possibly a capsule. She continues to experience a watery mouth and persistent nausea, although the frequency of vomiting has decreased. She has been avoiding certain foods such as jeff, sausage, and eggs due to her nausea. She was previously consuming cottage cheese for breakfast but was advised against it due to its potential to exacerbate her stomach issues. She has since stopped eating dairy products. Antibiotics prescribed during a recent ER visit seemed to worsen her symptoms. She occasionally experiences pain in her ribs and a stabbing sensation in her chest, which she suspects might be muscular in nature. She has lost weight since her ER visit, dropping from 90 pounds to her current weight. She has not had any recent imaging studies of her stomach. She has a history of occasional nausea and diarrhea, but not to the current extent. Zofran, which she takes daily, does not seem to provide significant relief. She was recently taken off gabapentin by her psychiatrist, Dr. Fonseca, who suspects it may be contributing to her symptoms. She has an appointment with Dr. Fonseca scheduled for 02/16/2024. She occasionally snacks during the day. SUBJECTIVE: MEDICATIONS: Current Outpatient Medications Medication Instructions acetaminophen (TYLENOL) 1,000 mg, Oral, Every 8 hours PRN baclofen (LIORESAL) 10 mg, Oral, Every 8 hours bisacodyl (Dulcolax) 10 MG suppository Rectal, Daily PRN brimonidine (AlphaGAN P) 0.2 % ophthalmic solution 2 drops, Both Eyes, 3 times daily calcium carbonate (TUMS) 500 mg, Oral, 3 times daily PRN carbidopa-levodopa (Sinemet) 25-100 MG tablet 1 tablet, Oral, 4 times daily, Also taking Carb-lev ER BID carbidopa-levodopa CR (Sinemet CR) 25-100 MG ER tablet 2 tablets, Oral, 2 times daily cholecalciferol (VITAMIN D3) 25 mcg, Oral, Daily ciprofloxacin (CIPRO) 500 mg, Oral, 2 times daily, X7 days fish oil concentrate 1 g, Oral, Daily hyoscyamine (ANASPAZ,LEVSIN) 0.125 mg, Oral, Every 4 hours PRN ibandronate (BONIVA) 150 mg, Oral, Every 30 days, Take in morning with full glass of water on an empty stomach. No food, drink, meds, or lying down for 60 minutes after. LORazepam (ATIVAN) 0.25 mg, Oral, Every 8 hours PRN Melatonin 5 MG capsule 1 tablet, Oral, Nightly metroNIDAZOLE (FLAGYL) 500 mg, Oral, 2 times daily, X7 days mirtazapine (REMERON) 30 mg, Oral, Nightly ondansetron ODT (ZOFRAN-ODT) 4 mg, Oral, Every 8 hours PRN potassium chloride CR (Klor-Con M20) 20 MEQ ER tablet 20 mEq, Oral, 2 times daily psyllium (Metamucil) 58.6 % packet 1 packet, Oral, Daily, Mix and drink with at least 8 ounces of water or juice. rivastigmine (EXELON) 3 mg, Oral, 2 times daily sertraline (ZOLOFT) 150 mg, Oral, Daily sodium chloride 1 g, Oral, 2 times daily timolol (Timoptic) 0.5 % ophthalmic solution 1 drop, Both Eyes, Daily traMADol (Ultram) 50 MG tablet Oral, Every 6 hours PRN ALLERGIES: Allergies Allergen Reactions Bupropion Unknown SURGICAL HISTORY: Past Surgical History: Procedure Laterality Date BONE MARROW BIOPSY 07/10/2022 L1 BREAST BIOPSY Right 2004 COLONOSCOPY 2009 FIXATION KYPHOPLASTY LUMBAR SPINE 07/10/2022 Balloon Kyphoplasty w elevation of fracture and cement augmentation of L1 vertebral body HIP FRACTURE SURGERY Left 09/14/2021 HYSTERECTOMY 2005 Total IN LASER SURGERY OF EYE Right 02/2019 TUBAL LIGATION Bilateral 2001 FAMILY HISTORY: Family History Problem Relation Name Age of Onset Hypertension Mother Osteoporosis Mother Nephrolithiasis Mother Alzheimer's disease Father Migrated Family History Mental illness Father Other (blader cancer) Brother Heart disease Maternal Grandmother Heart disease Maternal Grandfather Mental illness Paternal Grandmother Heart disease Paternal Grandfather Schizophrenia Nephew Alcohol abuse Neg Hx Drug abuse Neg Hx SOCIAL HISTORY: Social History Tobacco Use Smoking status: Never Smokeless tobacco: Never Vaping Use Vaping status: Never Used Substance Use Topics Alcohol use: Not Currently Comment: none, Caffeine intake: none Drug use: Never Depression: Not at risk (12/30/2023) PHQ-2 PHQ-2 Score: 2 Recent Concern: Depression - At risk (12/13/2023) PHQ-2 PHQ-2 Score: 3 REVIEW OF SYMPTOMS: Review of Systems Respiratory: Negative. Cardiovascular: Negative. OBJECTIVE: Visit Vitals BP 112/64 (BP Location: Left arm, Patient Position: Sitting, BP Cuff Size: Adult) Pulse 86 Resp 20 Ht 5' 1 Wt 85 lb 3.2 oz SpO2 99% BMI 16.10 kg/m Smoking Status Never BSA 1.29 m Physical Exam Constitutional: Appearance: Normal appearance. She is normal weight. HENT: Head: Normocephalic and atraumatic. Nose: Nose normal. Mouth/Throat: Mouth: Mucous membranes are moist. Eyes: Pupils: Pupils are equal, round, and reactive to light. Cardiovascular: Rate and Rhythm: Normal rate and regular rhythm. Heart sounds: No murmur heard. Pulmonary: Effort: Pulmonary effort is normal. Breath sounds: Normal breath sounds. No wheezing or rhonchi. Musculoskeletal: General: No swelling. Cervical back: Normal range of motion and neck supple. Right lower leg: No edema. Left lower leg: No edema. Skin: General: Skin is warm and dry. Findings: No rash. Neurological: Mental Status: She is alert and oriented to person, place, and time. Sensory: No sensory deficit. Gait: Gait normal. Psychiatric: Mood and Affect: Mood normal. Thought Content: Thought content normal. Judgment: Judgment normal. ASSESSMENT AND PLAN: Assessment/Plan Problem List Items Addressed This Visit Chronic gastritis without bleeding - Primary Relevant Medications omeprazole (PriLOSEC) [address] asia Other Relevant Orders Ambulatory referral to Gastroenterology Other Visit Diagnoses Encounter for immunization Relevant Orders Flu vaccine, high dose seasonal, PF (RLF802) (Fluzone High Dose) (Completed) Assessment & Plan 1. Nausea and vomiting. Her weight loss is a concern, potentially linked to her gastrointestinal symptoms. An antacid medication will be initiated to alleviate her symptoms. A referral to Dr. Garner, a make up man in [place], has been made for further evaluation. She is advised to avoid dairy products, which seem to exacerbate her symptoms, and specifically cottage cheese, which appears to trigger her episodes. Zofran has been prescribed but does not seem to help significantly. 2. Diarrhea. She reports persistent diarrhea, which may be contributing to her weight loss. She is advised to avoid dairy products, which could be aggravating her symptoms. Further evaluation by a make up man is warranted. 3. Weight loss. Her weight has fluctuated, with recent significant losses. This is likely secondary to her nausea, vomiting, and diarrhea. An antacid medication will be started to help settle her stomach. She is encouraged to eat small, frequent snacks throughout the day and avoid foods that seem to trigger her symptoms. Follow-up She will follow up in 2 weeks. documented in this encounter [facility] 01-24-2024 History of Present illness Narrative Images from the original note were not included. Mirian Gregg is a 68 y.o. female presents for Medication Management. HPI: Patient is here for medication follow up. Here with her sister in law. Received message patient has had more anxiety since released from hospital due to dehydration. Patient has improved since last appt. Presents in a wheelchair. States some days she is able to walk but most of time in wheelchair, Apparently has had several falls. Mood is reported as mildly depressed and rates 4 (10worst). Anxiety has been high. Rates 5 (10worst). Too many people and can't stand people yelling. Sleeping 6 hours. To note patient was on neurontin at one point by the neurologist. A but apparently this was discontnued. Medication compliant. No reported side effects. Denies abuse of substances. Medical problems since last visit. Currently on flagyl and cipro for UTI. Psychosocial stressors include getting medications on time at the assisted living. SUBJECTIVE: PAST MEDICAL HISTORY: Past Medical History: Diagnosis Date Depression ([facility]) Endometrial cancer ([facility]) 2004 History of being hospitalized 08/2022 [facility] History of being hospitalized 04/2022 [facility] days History of psychiatric hospitalization [facility] 06/2022 and 04/2022 Nontoxic multinodular goiter ([facility]) Osteoporosis ([facility]) Parathyroid adenoma Parkinson's disease ([facility]) Spinal stenosis Thyroid nodule ([facility]) Vitamin D deficiency ALLERGIES: Allergies Allergen Reactions Bupropion Unknown SURGICAL HISTORY: Past Surgical History: Procedure Laterality Date BONE MARROW BIOPSY 07/10/2022 L1 BREAST BIOPSY Right 2003 COLONOSCOPY 2008 FIXATION KYPHOPLASTY LUMBAR SPINE 07/10/2022 Balloon Kyphoplasty w elevation of fracture and cement augmentation of L1 vertebral body HIP FRACTURE SURGERY Left 09/14/2021 HYSTERECTOMY 2005 Total IN LASER SURGERY OF EYE Right 02/2019 TUBAL LIGATION Bilateral 2001 FAMILY HISTORY: Family History Problem Relation Name Age of Onset Hypertension Mother Osteoporosis Mother Nephrolithiasis Mother Alzheimer's disease Father Migrated Family History Mental illness Father Other (blader cancer) Brother Heart disease Maternal Grandmother Heart disease Maternal Grandfather Mental illness Paternal Grandmother Heart disease Paternal Grandfather Schizophrenia Nephew Alcohol abuse Neg Hx Drug abuse Neg Hx SOCIAL HISTORY: Social History Tobacco Use Smoking status: Never Smokeless tobacco: Never Vaping Use Vaping status: Never Used Substance Use Topics Alcohol use: Not Currently Comment: none, Caffeine intake: none Drug use: Never Depression: Not at risk (12/30/2023) PHQ-2 PHQ-2 Score: 2 Recent Concern: Depression - At risk (12/13/2023) PHQ-2 PHQ-2 Score: 3 REVIEW OF SYMPTOMS - MENTAL STATUS EXAM Appearance Appearance: Casual dress, normal grooming and hygiene Attitude Attitude: Cooperative, conversant, engaged, and with good eye contact. Behavior Cooperative, conversant, engaged, and with good eye contact. Speech Normal, clear, regular rate, rhythm and volume Affect full affect appropriate with mood Mood Depressed and Anxious Thought Process Impaired and Thought blocking Thought Content No Suicidal Ideation and No Homicidal ideation Perception No perceptual abnormalities noted Orientation does not know date or day of week Memory/Concentration difficulty remembering dates and times. For e.g. has it written down and then she forgets. Trouble word finding. Insight/Judgement Fair OBJECTIVE: Visit Vitals Smoking Status Never No results found for: TSH Lab Results Component Value Date GLU 96 12/30/2023 CALCIUM 9.0 12/30/2023 NA 143 12/30/2023 K 4.0 12/30/2023 CO2 25 12/30/2023 CL 109 12/30/2023 BUN 18 12/30/2023 CREATININE 0.55 12/30/2023 Lab Results Component Value Date WBC 5.2 12/30/2023 HGB 13.5 12/30/2023 HCT 42.3 12/30/2023 MCV 94.6 12/30/2023 PLT 246 12/30/2023 No results found for: CHOL No results found for: HDL No results found for: LDLCALC No results found for: TRIG ASSESSMENT AND PLAN: Assessment/Plan Assess/Plan SmartLinks: There are no diagnoses linked to this encounter. 1. Generalized anxiety disorder - F41.1 2. Recurrent major depressive disorder, in partial remission - F33.41 3. Panic disorder [episodic paroxysmal anxiety] - F41.0 Treatment 1.Generalized anxiety disorder Ativan Tablet, 0.25 MG, 1 tablet, Orally, bid and prn up to tid, Increase remeron Tablet, 30 MG, 1 tablet at bedtime prn anxiety, Orally, Once a day, 30 days-target sleep and anxiety. zoloft 100mg 03/18 every day every day. -to target worsening of depression Encouraged to see neurologist regarding parkinsons regarding previous dose Encourage physical therapy. Could benefit from counseling - patient agreed to return to counseling due to difficulty with living arrangement and Completed form for surgical assistant certified living. Patient was seen Face to Face, Reviewed chart documents and documentation, Visit time : 50min F/U 21/2 months documented in this encounter [facility] 01-24-2024 Telephone encounter Note [facility] [facility] Pt is having difficulty engaging brakes on wheelchair. Nurse is requesting a rx for brake extenstions, and fax to [facility] TONY Fax- [phone] [facility] 01-24-2024 Miscellaneous Notes Faye [facility] Home health Pt is having difficulty engaging brakes on wheelchair. Nurse is requesting a rx for brake extenstions, and fax to [facility] TONY Fax- [phone] documented in this encounter [facility] 01-19-2024 Telephone encounter Note LAWRENCE Torres PT of [facility] calling, Going to [facility] for home health 1 per wk x 9 weeks Pt had a fall in the br when transfering and got assistance from staff, states she is not injured. [phone] [facility] 01-19-2024 Miscellaneous Notes LAWRENCE Torres PT of [facility] calling, Going to [facility] for home health 1 per wk x 9 weeks Pt had a fall in the br when transfering and got assistance from staff, states she is not injured. [phone] documented in this encounter [facility] 08-18-2023 History of Present illness Narrative [facility] [address] [place] [address] Patient: Mirian Gregg Sex: female : 1955 Age: 67 y.o. PCP: Shea Vogel MD 08/18/2023 Mirian Gregg is here for a(n) follow up after [...] (BLE). Associated symptoms comments: Pt arrived to [facility] in wheelchair. She reports no foreign bodies [...] Date Anemia Back pain Depression Endometrial cancer ([facility]) 2004 Idiopathic hypotension Left atrial enlargement Low back pain Neck pain Osteoporosis Parkinsonism (CMS-HCC) Shaking Left Hand Shingles Skin carcinoma Visual impairment Past Surgical History: Procedure Laterality Date AUGMENTATION VERTEBRAL KYPHOPLASTY SPINE L 1 N/A 07/10/2022 Performed by Emmanuel Dela Cruz MD at [facility] BREAST BIOPSY 2004 stereotactic benign COLONOSCOPY N/A 10/08/2017 Performed by Sedrick Huizar MD at [facility] HYSTERECTOMY 05/24/2004 [facility] [place], [place] INSERTION INTRAMEDULLARY TROCHANTERIC FIXATION NAIL HIP Left 09/14/2021 Performed by Joshua Ramos MD at [facility] SELECTIVE LASER TRABECULOPLASTY Right 02/24/2019 SLT 360 [...] PA-C 08/18/23 1146 [facility]23 Miscellaneous Notes Addended by: EVE SALAS on: 08/18/2023 01:53 PM Modules accepted: Orders documented in this encounter [facility] 08-18-2023 Note Addended by: EVE SALAS on: 08/18/2023 01:53 PM Modules accepted: Orders [facility] 07-29-2023 Miscellaneous Notes Received call and fax from [facility]. They report gabapentin 600 mg TID is too much for patient. She isn't walking and has to be wheeled down to meals, has increased confusion. They are requesting decreasing dose to 400 mg TID Please advise Please reduce back to 400tid Medication change completed via fax from detention and sent back to them with Matts signature. documented in this encounter [facility] 07-29-2023 Telephone encounter Note Received call and fax from [facility]. They report gabapentin 600 mg TID is too much for patient. She isn't walking and has to be wheeled down to meals, has increased confusion. They are requesting decreasing dose to 400 mg TID Please advise [facility] 07-29-2023 Telephone encounter Note Please reduce back to 400tid [facility] Work Phone: 07-29-2023 Telephone encounter Note Medication change completed via fax from detention and sent back to them with Matts signature. [facility] 07-21-2023 History of Present illness Narrative [facility] [address] [place] [address] Patient: Mirian Gregg Sex: female : 1955 Age: 67 y.o. PCP: Shea Vogel MD 07/21/2023 Mirian Gregg is here for a(n) initial consultation. Chief Complaint Patient presents with Leg Pain HPI: PT in past at [facility] (where she currently lives) which made [...] Anemia Back pain Depression Endometrial cancer (CMS-HCC) 2004 Idiopathic hypotension Left atrial enlargement Low back pain Neck pain Osteoporosis Parkinsonism Shaking Left Hand Shingles Skin carcinoma Visual impairment Past Surgical History: Procedure Laterality Date AUGMENTATION VERTEBRAL KYPHOPLASTY SPINE L 1 N/A 07/10/2022 Performed by Emmanuel Dela Cruz MD at [facility] BREAST BIOPSY 2004 stereotactic benign COLONOSCOPY N/A 10/08/2017 Performed by Sedrick Huizar MD at [facility] HYSTERECTOMY 05/24/2004 [facility] [place], [place] INSERTION INTRAMEDULLARY TROCHANTERIC FIXATION NAIL HIP Left 09/14/2021 Performed by Joshua Ramos MD at [facility] SELECTIVE LASER TRABECULOPLASTY Right 02/24/2019 SLT [...] PA-C 07/21/23 1156 documented in this encounter [facility] 07-01-2023 Telephone encounter Note PC from Hanny at [facility] received Rx for Baclofen 20mg, is questioning if you want her started off with 10mg and then go up? Her call back is [phone]. Thank you! [facility] 07-01-2023 Miscellaneous Notes [facility] 20[facility], is questioning if you want her started off with 10mg and then go up? Her call back is [phone]. Thank you! documented in this encounter [facility] 07-01-2023 History of Present illness Narrative Mirian Gregg is a 67 y.o. female presents with [...] times daily cholecalciferol (Vitamin D-3) 50 MCG (1999 UT) tablet Oral, Daily cyclobenzaprine (Flexeril) 5 [...] HISTORY: Past Medical History: Diagnosis Date Depression ([facility]) Endometrial cancer ([facility]) 2004 History of being hospitalized 08/2022 [facility] History of being hospitalized 04/2022 [facility] x14 days History of psychiatric hospitalization [facility] 06/2022 and 04/2022 Nontoxic multinodular goiter ([facility]/HCC) Osteoporosis ([facility]) Parathyroid adenoma Parkinson's disease Spinal stenosis Thyroid nodule ([facility]) Vitamin D deficiency Social History Tobacco [...] FRACTURE SURGERY Left 09/14/2021 HYSTERECTOMY 2005 Total IN LASER SURGERY OF EYE Right 02/2019 TUBAL LIGATION Bilateral 2000 REVIEW OF SYMPTOMS: Review of Systems Constitutional: [...] follow-ups on file. documented in this encounter [facility] 09-11-2021 Note HISTORY: Multiple fa lls [...] Caputo on 09/11/2021 112[address] [facility] Benefits Coordinator Evaluation note Diagnosis Secondary parkinsonism, unspecified secondary Parkinsonism type (CMS/HCC)- Primary Dystonia Abnormal involuntary movements Muscle cramping [facility] Diagnosis Lumbar spondylosis- Primary Lumbosacral spondylosis without myelopathy Bilateral leg cramps [facility] this [facility] Diagnosis Lumbar spondylosis Lumbosacral spondylosis without myelopathy Bilateral leg cramps [facility]* Diagnosis Chronic gastritis without bleeding, unspecified gastritis type- Primary Urinary incontinence, unspecified type Weight loss Loss of weight Hematuria, unspecified type [facility] Diagnosis Acute cystitis without hematuria- Primary Weight loss Loss of weight Panic attack ([facility]/HCC) Panic disorder without agoraphobia Generalized anxiety disorder ([facility]/HCC) Generalized anxiety disorder Adjustment disorder with anxious mood ([facility]/HCC) Adjustment disorder with anxiety Open-angle glaucoma, mild stage, unspecified laterality, unspecified open-angle glaucoma type ([facility]/HCC) Major depressive disorder, single episode, moderate (HCC) ([facility]) Major depressive disorder, single episode, moderate [facility] Diagnosis Abnormal gallbladder ultrasound- Primary Abdominal pain with vomiting Weight loss Loss of weight [facility]* Diagnosis Oropharyngeal dysphagia- Primary Dysphagia, oropharyngeal phase Weight loss Loss of weight [facility]* Diagnosis Parkinson's disease without dyskinesia, with fluctuating manifestations (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) PLMD (periodic limb movement disorder) Periodic limb movement disorder Anxiety Anxiety state, unspecified Depression, unspecified depression type History of malignant neoplasm of endometrium Personal history of malignant neoplasm of other parts of uterus History of syncope Panic attacks Panic disorder without agoraphobia Lumbar radiculopathy Thoracic or lumbosacral neuritis or radiculitis, unspecified Falls, sequela Lumbar spondylosis Lumbosacral spondylosis without myelopathy Forgetfulness Other general symptoms Leg cramping [facility] Weight loss- Primary Loss of weight Nausea and vomiting, unspecified vomiting type Diarrhea of presumed infectious origin [facility] Diagnosis Recurrent major depressive disorder, in partial remission (HCC) ([facility])- Primary Generalized anxiety disorder ([facility]) Generalized anxiety disorder Insomnia, unspecified type documented [facility]* Diagnosis Chronic gastritis without bleeding, unspecified gastritis type- Primary Encounter for immunization documented [facility]* Diagnosis Generalized anxiety disorder ([facility]/HCC) Generalized anxiety disorder Insomnia, unspecified type documented [facility]* Diagnosis Generalized anxiety disorder ([facility]/HCC) Generalized anxiety disorder Moderate episode of recurrent major depressive disorder ([facility]/HCC) Panic disorder with agoraphobia ([facility]/HCC) Agoraphobia with panic disorder documented in this encounter [facility]* Diagnosis Parkinson's disease without dyskinesia or fluctuating manifestations (CMS/HCC)- Primary Major depressive disorder, recurrent, severe with psychotic symptoms (HCC) (CMS/HCC) Malignant neoplasm of endometrium (CMS/HCC) Malignant neoplasm of corpus uteri, except isthmus Unspecified dementia, unspecified severity, without behavioral disturbance, psychotic disturbance, mood disturbance, and anxiety (CMS/HCC) Neuropathy Mononeuritis of unspecified site documented in this encounter [facility] HealthcareInstructionsNot on filedocumented in this encounterProLa[facility] SystemInstructionsNot on filedocumented in this encounterProLa[facility] Health SystemInstructionsNot on filedocumented in this encounterProLa[facility] InstructionsNot on filedocumented in this encounterProLaurel [facility] InstructionsNot on filedocumented in this encounterMer[facility] InstructionsNot on filedocumented in this encounterMercy [facility] SystemReason for referral (narrative)* Consultation (Routine) - Pending Review Specialty Diagnoses / Procedures Referred By Navdeep hoskins Referred To Contact Pain Medicine Diagnoses Secondary parkinsonism, unspecified secondary Parkinsonism type (CMS/HCC) Dystonia Muscle cramping Procedures IN OFFICE/OUTPATIENT NEW HIGH MDM 60 MINUTES Saira Weston NP [address] [place] [address] Unallocated, [facility] Provider [address] [place] [address] Referral ID Status Reason Start Date Expiration Date Visits Requested Visits Authorized [id number] Pending Review Specialty Services Required 07/01/2023 12/28/2023 1 1 [facility] (n[facility] Consultation (Routine) - Pending Review Specialty Diagnoses / Procedures Referred By Navdeep hoksins Referred To Contact Gastroenterology Diagnoses Chronic gastritis without bleeding, unspecified gastritis type Procedures IN OFFICE/OUTPATIENT NEW HIGH MDM 60 MINUTES Shea Vogel MD [address] [place] [address] Joshua Muhammad MD [address] [place] [address], [place] [address] Referral ID Status Reason Start Date Expiration Date Visits Requested Visits Authorized [id number] Pending Review Specialty Services Required 02/16/2024 08/14/2024 1 1 [facility] (n[facility])* Consultation (Routine) - Pending Review Specialty Diagnoses / Procedures Referred By Navdeep t Referred To Contact Gastroenterology Diagnoses Chronic gastritis without bleeding, unspecified gastritis type Procedures IN OFFICE/OUTPATIENT 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 Expl 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 Living Will 09/23/2021 7:47 AM Durable Power of Comber Operator 09/23/2021 7:47 AM Latest Code Status on File Code Status Date Activated Date Inactivated Comments Full Code 07/08/2022 9:19 PM 07/14/2022 5:18 PM Code Status History Code Status Date Activated Date Inactivated Comments Full Code 09/13/2021 6:49 PM 09/16/2021 8:13 PM Documents on File Type Date Recorded 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 Expl 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 Living Will 09/23/2021 7:47 AM Durable Power of Comber Operator 09/23/2021 7:47 AM Latest Code Status on File Code Status Date Activated Date Inactivated Comments Full Code 07/08/2022 9:19 PM 07/14/2022 5:18 PM Code Status History Code Status Date Activated Date Inactivated Comments Full Code 09/13/2021 6:49 PM 09/16/2021 8:13 PM Date Activated Date Inactivated Comments 07/08/2022 9:19 PM 07/14/2022 5:18 PM Date Activated Date Inactivated Comments 09/13/2021 6:49 PM 09/16/2021 8:13 PM Date Activated Date Inactivated Comments 07/08/2022 9:19 PM 07/14/2022 5:18 PM Date Activated Date Inactivated Comments 09/13/2021 6:49 PM 09/16/2021 8:13 PM Reason for Referral Specialty Diagnoses / Procedures Referred By Contac t Referred To Contact Diagnoses Lumbar spondylosis Bilateral leg cramps Eve Salas, PARoseannC [address] [place] [address] Referral ID Status Reason Start Date Expiration Date V isits Requested Visits Authorized [id number] Pending Review 1 1 Specialty Diagnoses / Procedures Referred By Contac t Referred To Contact Diagnoses Abnormal gallbladder ultrasound Abdominal pain with vomiting Weight loss Procedures MR abdomen w contrast MRCP Shea Vogel MD [address] [place] [address] [facility] Referral ID Status Reason Start Date Expiration Date V isits Requested Visits Authorized [id number] Pending Review 02/23/2024 08/21/2024 1 1 Additional Source Comments INFORMATION SOURCE (unrecogn ized section and content) DATE CREATED AUTHOR 11/10/2017 [facility] DATE CREATED AUTHOR AUTHOR'S ORGANIZ ATION 02/16/2022 [facility] dical Specialist DATE CREATED AUTHOR AUTHOR'S ORGANIZ ATION 08/31/2022 [facility] DATE CREATED AUTHOR AUTHOR'S ORGANIZ ATION 03/17/2024 [facility] DATE CREATED AUTHOR AUTHOR'S ORGANIZ ATION [facility]20[facility] DATE CREATED AUTHOR AUTHOR'S ORGANIZ ATION 05/25/2024 [facility] dical Specialists EPIC Care Teams (unrecognized sec tion and content) Trade Marker Relationship Specialty Start Date End Date Shea Vogel [place] [address] PCP - General Family Medicine 10/05/22 Saira Weston NP [address] [place] [address] PCP - ACO Reach 10/08/22 Saira Weston BUTTERMAKER [address] [place] [address] Nurse Practitioner Family Medicine 10/05/22 Trade Marker Relationship Specialty Start Date End Date Shea Vogel MD [address] [place] [address] PCP - General Family Medicine 10/05/22 Saira Weston NP [address] [place] [address] PCP - ACO Reach 10/08/22 Saira Weston NP [address] [place] [address] Nurse Practitioner Family Medicine 10/05/22 Trade Marker Relationship Specialty Start Date End Date Shea Vogel MD [address] [place] [address] PCP - General Family Medicine 10/05/22 Saira Weston BUTTERMAKER [address] [place] [address] PCP - ACO Reach 10/08/22 Saira Weston NP [address] [place] [address] Nurse Practitioner Family Medicine 10/05/22 Trade Marker Relationship Specialty Start Date End Date Shea Vogel MD [address] [place] [address] PCP - General Family Medicine 07/08/22 Trade Marker Relationship Specialty Start Date End Date Shea Vogel MD [address] [place] [address] PCP - General Family Medicine 07/08/22 Trade Marker Relationship Specialty Start Date End Date Shea Vogel MD [address] [place] [address] PCP - General Family Medicine 07/08/22 Trade Marker Relationship Specialty Start Date End Date Shea Vogel MD [address] [place] [address] PCP - General Family Medicine 10/05/22 Shea Vogel MD [address] [place] [address] PCP - ACO Reach 07/16/23 Saira Weston, FADY [address] [place] [address] Nurse Practitioner Family Medicine 10/05/22 Trade Marker Relationship Specialty Start Date End Date Shea Vogel MD [address] [place] [address] PCP - General Family Medicine 10/05/22 Shea Vogel MD [address] [place] [address] PCP - ACO Reach 07/16/23 Saira Weston, FADY [address] [place] [address] Nurse Practitioner Family Medicine 10/05/22 Trade Marker Relationship Specialty Start Date End Date Shea Vogel MD [address] [place] [address] PCP - General Family Medicine 10/05/22 Shea Vogel MD [address] [place] [address] PCP - ACO Reach 07/16/23 Saira Weston, BUTTERMAKER [address] [place] [address] Nurse Practitioner Family Medicine 10/05/22 Trade Marker Relationship Specialty Start Date End Date Shea Vogel MD [address] [place] [address] PCP - General Family Medicine 10/05/22 Shea Vogel MD [address] [place] [address] PCP - ACO Reach 07/16/23 Saira Weston BUTTERMAKER [address] [place] [address] Nurse Practitioner Family Medicine 10/05/22 Trade Marker Relationship Specialty Start Date End Date Shea Vogel MD [address] [place] [address] PCP - General Family Medicine 10/05/22 Shea Vogel MD [address] [place] [address] PCP - ACO Reach 07/16/23 Saira Weston, BUTTERMAKER [address] [place] [address] Nurse Practitioner Family Medicine 10/05/22 Trade Marker Relationship Specialty Start Date End Date Shea Vogel MD [address] [place] [address] PCP - General Family Medicine 10/05/22 Shea Vogel MD [address] [place] [address] PCP - ACO Reach 07/16/23 Saira Weston NP [address] [place] [address] Nurse Practitioner Family Medicine 10/05/22 Trade Marker Relationship Specialty Start Date End Date Shea Vogel MD PCP - General Family Medicine 03/08/24 Trade Marker Relationship Specialty Start Date End Date Shea Vogel MD PCP - General Family Medicine 03/08/24 Trade Marker Relationship Specialty Start Date End Date Shea Vogel MD [address] [place] [address] PCP - General Family Medicine 10/05/22 Shea Vogel MD [address] [place] [address] PCP - ACO Reach 07/16/23 Saira Weston, BUTTERMAKER [address] [place] [address] Nurse Practitioner Family Medicine 10/05/22 Trade Marker Relationship Specialty Start Date End Date Shea Vogel MD [address] [place] [address] PCP - General Family Medicine 10/05/22 Shea Vogel MD [address] [place] [address] PCP - ACO Reach 07/16/23 Saira Weston, BUTTERMAKER [address] [place] [address] Nurse Practitioner Family Medicine 10/05/22 Trade Marker Relationship Specialty Start Date End Date Shea Vogel MD [address] [place] [address] PCP - General Family Medicine 10/05/22 Shea Vogel MD [address] [place] [address] PCP - ACO Reach 07/16/23 Saira Weston, FADY [address] [place] [address] Nurse Practitioner Family Medicine 10/05/22 Trade Marker Relationship Specialty Start Date End Date Shea Vogel MD [address] [place] [address] PCP - General Family Medicine 10/05/22 Shea Vogel MD [address] [place] [address] PCP - ACO Reach 07/16/23 Saira Weston, BUTTERMAKER [address] [place] [address] Nurse Practitioner Family Medicine 10/05/22 Trade Marker Relationship Specialty Start Date End Date Shea Vogel MD [address] [place] [address] PCP - General Family Medicine 10/05/22 Shea Vogel MD [address] [place] [address] PCP - ACO Reach 07/16/23 Saira Weston, BUTTERMAKER [address] [place] [address] Nurse Practitioner Family Medicine 10/05/22 Trade Marker Relationship Specialty Start Date End Date Shea Vogel MD [address] [place] [address] PCP - General Family Medicine 10/05/22 Shea Vogel MD [address] [place] [address] PCP - ACO Reach 07/16/23 Saira Weston BUTTERMAKER [address] [place] [address] Nurse Practitioner Family Medicine 10/05/22 Trade Marker Relationship Specialty Start Date End Date Shea Vogel MD [address] [place] [address] PCP - General Family Medicine 10/05/22 Shea Vogel MD [address] [place] [address] PCP - ACO Reach 07/16/23 Saira Weston NP [address] [place] [address] Nurse Practitioner Family Medicine 10/05/22 Trade Marker Relationship Specialty Start Date End Date Shea Vogel MD [address] [place] [address] PCP - General Family Medicine 10/05/22 Shea Vogel MD [address] [place] [address] PCP - ACO Reach 07/16/23 Saira Weston NP [address] [place] [address] Nurse Practitioner Family Medicine 10/05/22 Trade Marker Relationship Specialty Start Date End Date Shea Vogel MD [address] [place] [address] PCP - General Family Medicine 10/05/22 Shea Vogel MD [address] [place] [address] PCP - ACO Reach 07/16/23 Saira Weston NP [address] [place] [address] Nurse Practitioner Family Medicine 10/05/22 Trade Marker Relationship Specialty Start Date End Date Shea Vogel MD [address] [place] [address] PCP - General Family Medicine 10/05/22 Shea Vogel MD [address] [place] [address] PCP - ACO Reach 07/16/23 Saira Weston NP [address] [place] [address] Nurse Practitioner Family Medicine 10/05/22 Reason for Visit (unrecogniz ed section and content) Reason Comments Pain Reason Onset Date Comments Medication Question 07/01/2023 Reason Comments Leg Pain Reason Comments Back Pain Reason Comments Vomiting Patient presents tod ay for vomiting/dry heaving. Patient states that this has been ongoing for months. Patient states that the vomit is yellow, clear, and sticky. Reason Comments Follow-up Patient presents tod ay for 1 week follow up on weight loss/stomach issues. Reason Comments Follow-up Patient presents tod ay for 2 week follow up. Reason Comments Follow-up Patient is here toda y for follow up on dx: Parkinson's disease without dyskinesia, with fluctuating manifestations Reason Comments Vomiting Patient is here for vomiting and diarrhea and weight loss. Specialty Diagnoses / Procedures Referred By Contac t Referred To Contact Gastroenterology Diagnoses Chronic gastritis without bleeding, unspecified gastritis type Procedures IN OFFICE OUTPATIENT VISIT 60-74 MINS HIGH MDM AMB REFERRAL TO GASTROENTEROLOGY Shea Vogel MD [address] [place] [address] Phone: tel: fax: Joshua Muhammad MD [address] [place] [address], [address] [place] [address] Phone: tel: fax: Referral ID Status Reason Start Date Expiration Date V isits Requested Visits Authorized [id number] Pending Review 02/16/2024 08/14/2024 1 1 Reason Comments Med Management Follow-up Reason Comments ER Follow-up Patient presents tod ay for ER follow up. Patient was seen 01/21/24 for Nausea and Vomiting at [facility]. Reason Comments Follow-up Patient presents tod ay for 3 month follow up. FOR RECORDS PERTAINING TO PATIENTS WHO ARE [...] BE BASED ON THE PRIMARY CLINICAL RECORDS. [facility]. provides no warranty or guarantee of the accuracy or completeness of information in this document.
--- NOTE | 2024-05-28 11:51 | XR_ITS ---
The [address] [address] Patient Name: ARMANDO MÁRQUEZ MRN: [id number] date: 1955 Sex: F Assigned Patient Location: ED.MAIN Current Patient Location: Accession/Order Number: [id number] Exam Date: 05/28/2024 12:30 Report Date: 05/28/2024 14:01 At the request of: CHARLI PARMAR Procedure: XR ribs LT min 3V w CXR1V EXAM: XR ribs LT min 3V w CXR1V HISTORY: fall left-sided pain. COMPARISON: Chest x-ray 09/07/2023 and earlier. TECHNIQUE: Chest x-ray, AP oblique views left RIBS. 7 view series FINDINGS: Chest x-ray demonstrates prominent markings left lung base and right upper lung field new from previous. Heart size and mediastinal contour stable accentuated by magnification. No pleural effusion or pneumothorax. No fracture outside of the ribs. Left rib views demonstrate mildly displaced fractures of the posterior lateral left 7-9 ribs and probable 10th rib. These appear acute. Vertebroplasty cement L1 XR/XR ribs LT min 3V w CXR1V IMPRESSION: Multiple mildly displaced left rib fractures including 7-9, probable 10th which appear acute. No lung contusion or pneumothorax or pleural effusion. Prominent interstitial markings left lung base and right upper lung field of uncertain significance. Bodies at the left lung base could be atelectasis. Right upper lung field assessment limited by apparent supine position. Electronically authenticated by: CARLOS ENRIQUE CEBALLOS Date: 05/28/2024 14:01
--- NOTE | 2024-05-28 11:52 | ED.GENADUL1 ---
HPI HPI - General Adult General Chief complaint: Back Pain/Injury Stated complaint: FALL Time Seen by Provider: 05/28/24 11:48 Mode of arrival: walk-in History of Present Illness HPI narrative: 68-year-old female presents to the emergency department for pain to the left posterior lateral rib area. She states that just after 7:00 this morning she fell because the floor was wet and she landed on this area. She does not seem to have hit her head but she is complaining of pain in this left posterior lateral rib region. She does not have pain in the lumbar region or on the right side. She is not complaining of shortness of breath. Related Data Home Medications ?Medication ?Instructions ?Recorded ?Confirmed bisacodyl 10 mg rectal suppository 10 mg VT DAILY PRN constipation 01/27/23 05/28/24 (Laxative (bisacodyl)) brimonidine 0.2 % eye drops 2 drp ophthalmic (eye) TID 01/27/23 05/28/24 calcium carbonate (Calcium 500) 1,000 mg PO Q2H PRN dyspepsia 01/27/23 05/28/24 melatonin 5 mg tablet 5 mg PO BEDTIME sleep 01/27/23 05/28/24 omeprazole 40 mg capsule,delayed 40 mg PO .acb 01/27/23 05/28/24 release timolol maleate 0.5 % eye drops 1 drp ophthalmic (eye) QAM 01/27/23 05/28/24 loperamide 2 mg capsule 2 mg PO Q6H PRN loose stool 01/28/23 05/28/24 (Anti-Diarrheal (loperamide)) acetaminophen 500 mg tablet 1,000 mg PO Q8H PRN fever or pain 09/07/23 05/28/24 baclofen 10 mg tablet 10 mg PO BID 09/07/23 05/28/24 psyllium husk 3.4 gram/5.4 gram 1 tbsp PO DAILY 09/07/23 05/28/24 oral powder (Metamucil) sertraline 50 mg tablet 200 mg PO DAILY 09/07/23 05/28/24 baclofen 20 mg tablet 20 mg PO BEDTIME 05/28/24 05/28/24 cholecalciferol (vitamin D3) 25 1,000 unit PO DAILY 05/28/24 05/28/24 mcg (1,000 unit) capsule (Vitamin D3) gabapentin 300 mg capsule 300 mg PO TID 05/28/24 05/28/24 hydroxyzine HCl 25 mg tablet 25 mg PO Q6H PRN anxiety 05/28/24 05/28/24 lorazepam 0.5 mg tablet 0.25 mg PO Q8H PRN anxiety 05/28/24 05/28/24 megestrol 40 mg tablet 40 mg PO BID 05/28/24 05/28/24 mirtazapine 30 mg tablet 30 mg PO BEDTIME 05/28/24 05/28/24 ondansetron HCl 4 mg tablet 4 mg PO Q8H PRN nausea and vomiting 05/28/24 05/28/24 potassium chloride 20 mEq/15 mL 20 meq PO BID 05/28/24 05/28/24 oral liquid rivastigmine tartrate 3 mg capsule 3 mg PO BID 05/28/24 05/28/24 Previous Rx's ?Medication ?Instructions ?Recorded carbidopa 25 mg-levodopa 100 mg 2 tab PO TID 30 days #180 tabs 09/09/23 tablet tramadol 50 mg tablet 50 mg PO Q6H PRN pain 30 days #120 10/06/23 tabs Allergies Allergy/AdvReac Type Severity Reaction Status Date / Time bupropion (From Wellbutrin) Allergy Unknown Verified 01/21/24 14:22 Opioid HPI Opioid Management Most Recent Opioid Data: Last Pain Scale 10 05/28/24 11:47 05/28/24 Last ORT Total Score 1 10/03/23 13:14 10/03/23 Last ORT Risk Category Low Risk 10/03/23 13:14 10/03/23 Review of Systems ROS Narrative A ten point review of systems is negative except as noted above. [facility] Medical History (Updated 05/28/24 @ 13:06 by Henry Sullivan MD) Acute hypokalemia ?E87.6 - Hypokalemia (ICD-10) Fall ?W19.XXXA - Unspecified fall, initial encounter (ICD-10) Closed sacral fracture ?S32.10XA - Unspecified fracture of sacrum, initial encounter for closed fracture (ICD-10) Protein calorie malnutrition ?E46 - Unspecified protein-calorie malnutrition (ICD-10) Weakness ?R53.1 - Weakness (ICD-10) Osteoporosis ?M81.0 - Age-related osteoporosis without current pathological fracture (ICD-10) Glaucoma ?H40.9 - Unspecified glaucoma (ICD-10) Depression with anxiety ?F41.8 - Other specified anxiety disorders (ICD-10) GERD (gastroesophageal reflux disease) ?K21.9 - Gastro-esophageal reflux disease without esophagitis (ICD-10) Difficulty in walking ?R26.2 - Difficulty in walking, not elsewhere classified (ICD-10) Parkinson disease ?G20.A1 - Parkinson's disease without dyskinesia, without mention of fluctuations (ICD-10) Abdominal pain ?R10.9 - Unspecified abdominal pain (ICD-10) Surgical History H/O: hysterectomy ?Z90.710 - Acquired absence of both cervix and uterus (ICD-10) Family History Brother Family history of cancer Grandmother Family history of hypertension Family history of stroke Social History Within the past year, how often did you have a drink containing alcohol: never Score interpretation: A score less than 3 is consistent with normal alcohol consumption. Smoking status: Never smoker Non-prescribed substance use: denies use Previous occupational history: retired Known occupational exposures/hazards: No Highest level of school completed/degree received: high school graduate Are you now , , , , never or living with a partner: In a typical week, how many times do you talk on the telephone with family, friends, or neighbors: twice per week How often do you get together with friends or relatives: never How often do you attend sabianism or advent services: never Do you belong to any clubs or organizations such as sabianism groups unions, fraternal or athletic groups, or school groups: yes Total score: 2 Score interpretation: A score of greater than or equal to 2 indicates the lowest level of social isolation. Little interest or pleasure in doing things: not at all Feeling down, depressed, or hopeless: not at all Feel stressed/tense/nervous/anxious/difficulty sleeping: not at all Life stressors: other Life stressor details: prefer not to say Do you think of yourself as: straight/heterosexual Gender Identity: female Exam Narrative Exam Narrative: Nurses note and vital signs reviewed and patient is not hypoxic. General: The patient appears in no apparent distress. Skin: Warm, dry, no pallor noted. There is no rash noted. Head: Normocephalic, atraumatic Eye: Normal conjunctiva, no drainage Ears, Nose, Mouth, and Throat: oral mucosa is moist. Nares patent. Cardiovascular: Regular Rate and Rhythm Respiratory: Patient is in no distress, no accessory muscle use, lungs are clear to auscultation, no wheezing, rales or rhonchi. Breath sounds are equal Back: She has no bruise or abrasion on her back. She seems to have some tenderness in the left posterior lateral rib region without crepitus. GI: Normal bowel sounds, no tenderness to palpation, no masses appreciated. No rebound, guarding, or rigidity noted. Musculoskeletal: No tenderness to palpation of the her 4 extremities Neurological: Awake and alert Psychiatric: Cooperative Constitutional Vital Signs, click to edit/add: Last Vital Signs Temp 98.2 F 05/28/24 11:21 Pulse 108 H 05/28/24 11:21 Resp 18 05/28/24 11:21 BP 146/88 H 05/28/24 11:21 Pulse Ox 97 05/28/24 11:21 Course Vital Signs Vital signs: Vital Signs Temperature 98.2 F 05/28/24 11:21 Pulse Rate 108 H 05/28/24 11:21 Respiratory Rate 18 05/28/24 11:21 Blood Pressure 146/88 H 05/28/24 11:21 Pulse Oximetry 97 05/28/24 11:21 Temperature 98.2 F 05/28/24 11:21 Pulse Rate 108 H 05/28/24 11:21 Respiratory Rate 18 05/28/24 11:21 Blood Pressure 146/88 H 05/28/24 11:21 Pulse Oximetry 97 05/28/24 11:21 Medical Decision Making MDM Narrative Medical decision making narrative: Rib fracture is identified without pneumothorax. She appears to have fractures of the seventh eighth and ninth ribs on my interpretation. She was given OPEP device and Tylenol and her sister and was going to take her back to assisted living. Treatment diagnosis and follow-up were discussed with the patient and her [id number]. Differential Diagnosis Differential Diagnosis: Contusion, fracture, pneumothorax Imaging Data Rib x-rays: My impression: Fracture of the seventh eighth and ninth ribs, no pneumothorax Discharge Plan Discharge Chief Complaint: Back Pain/Injury Clinical Impression: Fracture of rib Patient Disposition: Home, Self-Care Time of Disposition Decision: 13:05 Condition: Good Mode of Transportation: Private Vehicle Prescriptions / Home Meds: No Action baclofen 10 mg tablet 10 mg PO BID Patient Comments: 0600,1400,2200 sertraline 50 mg tablet 200 mg PO DAILY acetaminophen 500 mg tablet 1,000 mg PO Q8H PRN (Reason: fever or pain) Metamucil 3.4 gram/5.4 gram powder 1 tbsp PO DAILY Rx Instructions: mix into at least 8 oz of water or juice before administering carbidopa-levodopa 25-100 mg tablet 2 tab PO TID 30 Days Qty: 180 0RF Rx Instructions: Take at 0600, 1000, and 1400. Avoid waking pt to give doses gabapentin 300 mg capsule 300 mg PO TID megestrol 40 mg tablet 40 mg PO BID mirtazapine 30 mg tablet 30 mg PO BEDTIME potassium chloride 20 mEq/15 mL liquid 20 meq PO BID rivastigmine tartrate 3 mg capsule 3 mg PO BID cholecalciferol (vitamin D3) [Vitamin D3] 25 mcg (1,000 unit) capsule 1,000 unit PO DAILY baclofen 20 mg tablet 20 mg PO BEDTIME hydroxyzine HCl 25 mg tablet 25 mg PO Q6H PRN (Reason: anxiety) lorazepam 0.5 mg tablet 0.25 mg PO Q8H PRN (Reason: anxiety) ondansetron HCl 4 mg tablet 4 mg PO Q8H PRN (Reason: nausea and vomiting) omeprazole 40 mg capsule,delayed release(DR/EC) 40 mg PO .acb brimonidine 0.2 % drops 2 drp OPHTHALMIC (EYE) TID timolol maleate 0.5 % drops 1 drp OPHTHALMIC (EYE) QAM melatonin 5 mg tablet 5 mg PO BEDTIME bisacodyl [Laxative (bisacodyl)] 10 mg suppository 10 mg VT DAILY PRN (Reason: constipation) calcium carbonate [Calcium 500] 500 mg calcium (1,250 mg) tablet,chewable 1,000 mg PO Q2H PRN (Reason: dyspepsia) loperamide [Anti-Diarrheal (loperamide)] 2 mg capsule 2 mg PO Q6H PRN (Reason: loose stool) tramadol 50 mg tablet 50 mg PO Q6H PRN (Reason: pain) 30 Days Qty: 120 0RF Print Language: Canadian Instructions: Rib Fracture (ED) Referrals: ELLY SUNSHINE [Primary Care Provider] - 1 week
[2024-05-28] MEDS: ACETAMINOPHEN 500 MG TABLET PO (13:10)
[2024-05-28 13:23] VITALS: PULSE 82; O2SAT 98
== END 2024-05-28 13:25 | disposition home or self-care (01) ==
PROVIDERS: Emergency Provider Emergency Medicine; PCP Family Medicine
DX: S22.42XA Multiple fractures of ribs, left side, initial encounter for closed fracture (principal); W18.39XA Other fall on same level, initial encounter; Z90.710 Acquired absence of both cervix and uterus
CPT/HCPCS: 71101; 94667; 99283

== ENCOUNTER 2024-09-21 16:15 | Observation (INO) | payer MEDICARE, OTHER, SELFPAY ==
[2024-09-21] VITALS (16 sets, daily range): BP systolic 106–130; BP diastolic 57–74; PULSE 104–116; TEMP 36.6–36.8; O2SAT 96–100; BMI 13.2; BMI 15.6
--- NOTE | 2024-09-21 16:24 | ED.GENADUL1 ---
HPI HPI - General Adult General Chief complaint: Nausea/Vomiting/Diarrhea Stated complaint: DIARRHEA Time Seen by Provider: 09/21/24 16:21 Source: patient Mode of arrival: ambulance History of Present Illness HPI narrative: Patient is a 68-year-old female with a history of Parkinson's who presents to the emergency department for evaluation of diarrhea for the last 7 days. She had a presentation for diarrhea in January of last year. Patient states for the last week she has had gurgling in her abdomen associated with multiple episodes of diarrhea, no blood in her stool. She has had no fevers or vomiting. She states her weight is down and she is not eating and drinking well. She reports feeling fatigued and tired. She has pain to her coccyx where she is noted to have redness and a wound. She states the staff at assisted living where she is a resident have been vigorously cleaning her and cause skin breakdown and irritation. Related Data Home Medications ?Medication ?Instructions ?Recorded ?Confirmed brimonidine 0.2 % eye drops 1 drp ophthalmic (eye) TID 01/27/23 09/21/24 melatonin 5 mg tablet 5 mg PO BEDTIME sleep 01/27/23 09/21/24 omeprazole 40 mg capsule,delayed 40 mg PO QAM 01/27/23 09/21/24 release timolol maleate 0.5 % eye drops 1 drp ophthalmic (eye) QAM 01/27/23 09/21/24 loperamide 2 mg capsule 2 mg PO Q6H PRN loose stool 01/28/23 09/21/24 (Anti-Diarrheal (loperamide)) baclofen 10 mg tablet 10 mg PO DAILY PRN muscle spasm 09/07/23 09/21/24 psyllium husk 3.4 gram/5.4 gram 1 tbsp PO QPM 09/07/23 09/21/24 oral powder (Metamucil) sertraline 50 mg tablet 200 mg PO DAILY 09/07/23 09/21/24 baclofen 20 mg tablet 20 mg PO BEDTIME 05/28/24 05/28/24 cholecalciferol (vitamin D3) 25 1,000 unit PO DAILY 05/28/24 09/21/24 mcg (1,000 unit) capsule (Vitamin D3) hydroxyzine HCl 25 mg tablet 25 mg PO Q6H PRN anxiety 05/28/24 09/21/24 lorazepam 0.5 mg tablet 0.25 mg PO Q12H PRN anxiety 05/28/24 09/21/24 megestrol 40 mg tablet 80 mg PO DAILY 05/28/24 09/21/24 mirtazapine 30 mg tablet 30 mg PO BEDTIME 05/28/24 09/21/24 ondansetron HCl 4 mg tablet 4 mg PO Q8H PRN nausea and vomiting 05/28/24 09/21/24 potassium chloride 20 mEq/15 mL 20 meq PO BID 05/28/24 09/21/24 oral liquid rivastigmine tartrate 3 mg capsule 3 mg PO BID 05/28/24 09/21/24 acetaminophen 325 mg capsule 650 mg PO Q6H PRN pain 09/21/24 09/21/24 calcium carbonate (Tums) 650 mg PO TID indigestion 09/21/24 09/21/24 carbidopa 25 mg-levodopa 100 mg 3 tab PO TID 09/21/24 09/21/24 tablet carbidopa 25 mg-levodopa 100 mg 2 tab PO DAILY 09/21/24 09/21/24 tablet (Sinemet) entacapone 200 mg tablet 200 mg PO QAM 09/21/24 09/21/24 ibandronate 150 mg tablet 150 mg PO .[id number] 09/21/24 09/21/24 Allergies Allergy/AdvReac Type Severity Reaction Status Date / Time bupropion (From Wellbutrin) Allergy Unknown Verified 01/21/24 14:22 Opioid HPI Opioid Management Most Recent Opioid Data: Last Pain Scale 10 05/28/24, 13:10 Last ORT Total Score 1 10/03/23, 13:14 Last ORT Risk Category Low Risk 10/03/23, 13:14 Review of Systems ROS Constitutional Reports: fatigue; Denies: fever or chills Ears, nose, mouth, and throat Denies: throat pain or nasal congestion Cardiovascular Denies: chest pain Respiratory Denies: shortness of breath Gastrointestinal Reports: diarrhea; Denies: abdominal pain, nausea or vomiting Genitourinary Reports: decreased urine ouput Musculoskeletal Denies: back pain Integumentary/Breast Reports: skin pain and sores; Denies: rash Neurological Denies: headache or numbness in extremities Hematologic/Lymphatic Denies: easy bruising or easy bleeding PFSH PFSH Medical History (Updated 09/21/24 @ 18:20 by SALLY Caldwell) Acute hypokalemia ?E87.6 - Hypokalemia (ICD-10) Fall ?W19.XXXA - Unspecified fall, initial encounter (ICD-10) Closed sacral fracture ?S32.10XA - Unspecified fracture of sacrum, initial encounter for closed fracture (ICD-10) Protein calorie malnutrition ?E46 - Unspecified protein-calorie malnutrition (ICD-10) Weakness ?R53.1 - Weakness (ICD-10) Osteoporosis ?M81.0 - Age-related osteoporosis without current pathological fracture (ICD-10) Glaucoma ?H40.9 - Unspecified glaucoma (ICD-10) Depression with anxiety ?F41.8 - Other specified anxiety disorders (ICD-10) GERD (gastroesophageal reflux disease) ?K21.9 - Gastro-esophageal reflux disease without esophagitis (ICD-10) Difficulty in walking ?R26.2 - Difficulty in walking, not elsewhere classified (ICD-10) Parkinson disease ?G20.A1 - Parkinson's disease without dyskinesia, without mention of fluctuations (ICD-10) Abdominal pain ?R10.9 - Unspecified abdominal pain (ICD-10) Surgical History H/O: hysterectomy ?Z90.710 - Acquired absence of both cervix and uterus (ICD-10) Family History Brother Family history of cancer Grandmother Family history of hypertension Family history of stroke Social History Within the past year, how often did you have a drink containing alcohol: never Score interpretation: A score less than 3 is consistent with normal alcohol consumption. Smoking status: Never smoker Non-prescribed substance use: denies use Previous occupational history: retired Known occupational exposures/hazards: No Highest level of school completed/degree received: high school graduate Are you now , , , , never or living with a partner: In a typical week, how many times do you talk on the telephone with family, friends, or neighbors: twice per week How often do you get together with friends or relatives: never How often do you attend judaism or confucianist services: never Do you belong to any clubs or organizations such as judaism groups unions, fraternal or athletic groups, or school groups: yes Total score: 2 Score interpretation: A score of greater than or equal to 2 indicates the lowest level of social isolation. Little interest or pleasure in doing things: not at all Feeling down, depressed, or hopeless: not at all Feel stressed/tense/nervous/anxious/difficulty sleeping: not at all Life stressors: other Life stressor details: prefer not to say Do you think of yourself as: straight/heterosexual Gender Identity: female Exam Narrative Exam Narrative: Gen.: Awake, alert, in no distress, frail and cachectic Head: Normocephalic, atraumatic ENT: Moist mucous membranes Respiratory: No respiratory distress, lungs clear bilaterally Cardio: Regular rate and rhythm Gastrointestinal: Abdomen is soft, nondistended and nontender to palpation; erythema noted to the coccyx with a 1.5 cm circular wound that is scabbed noted to the left buttock, small adjacent abrasion; stage I and early stage II breakdown Extremities: Moves extremities equally, no injuries noted Psych: Normal mood and affect Neuro: No focal neuro deficit Skin: Warm, dry Constitutional Vital Signs, click to edit/add: Last Vital Signs Temp 98.2 F 09/21/24 16:17 Pulse 116 H 09/21/24 16:17 Resp 20 09/21/24 16:17 BP 115/74 09/21/24 16:17 Pulse Ox 96 09/21/24 16:17 O2 Del Method Room Air 09/21/24 16:17 Course Vital Signs Vital signs: Vital Signs Temperature 98.2 F 09/21/24 16:17 Pulse Rate 116 H 09/21/24 16:17 Respiratory Rate 20 09/21/24 16:17 Blood Pressure 115/74 09/21/24 16:17 Pulse Oximetry 96 09/21/24 16:17 Oxygen Delivery Method Room Air 09/21/24 16:17 Temperature 98.2 F 09/21/24 16:17 Pulse Rate 116 H 09/21/24 16:17 Respiratory Rate 20 09/21/24 16:17 Blood Pressure 115/74 09/21/24 16:17 Pulse Oximetry 96 09/21/24 16:17 Oxygen Delivery Method Room Air 05/08/25 16:17 Medical Decision Making MDM Narrative Medical decision making narrative: Patient was given an IV fluid bolus, she is noted to have acute kidney injury and potassium of 2.4. CT of the abdomen and pelvis shows no evidence of acute process. Patient was ordered to have IV and oral potassium replenishment, urine specimen with no evidence of UTI. Topical lidocaine was applied to the patient's coccyx area with significant pain improvement. Abdomen is otherwise soft and benign. She will be admitted for dehydration and hypokalemia. Stable at time of admission to hospitalist service. SHARED APC VISIT, PHYSICIAN ATTESTATION: [id number] I performed a substantive part of the MDM during the patient?s E/M visit. I personally evaluated and examined the patient. I personally made or approved the documented management plan and acknowledge its risk of complications. Medical Records Medical records reviewed: Yes I reviewed the patient's medical records Lab Data Lab results reviewed: Yes I reviewed the patient's lab results Labs: Lab Results 09/21/24 09/21/24 Range/Units 16:30 16:35 WBC 7.8 (4.0-11.0) 10^3/uL RBC 3.82 L (4.20-5.40) 10^6/uL Hgb 11.4 L (12.0-16.0) g/dL Hct 32.2 L (36.0-48.0) % MCV 84.3 (81.0-99.0) fL MCH 29.8 (26.7-34.0) pg MCHC 35.4 H (29.9-35.2) g/dL RDW 12.6 (11.0-15.0) % Plt Count 404 (150-450) 10^3/uL MPV 8.9 L (9.5-13.5) fL Seg Neuts % (Manual) 91.0 H (43.0-75.0) Lymphocytes % (Manual) 4.0 L (20.5-60.0) % Monocytes % (Manual) 3.0 (1.7-12.0) % Eosinophils % (Manual) 1.0 (0.9-7.0) % Basophils % (Manual) 1.0 (0.2-2.0) % Neutrophils # (Manual) 7.09 H (1.4-6.5) 10^3/uL Lymphocytes # (Manual) 0.31 L (1.20-3.80) 10^3/uL Monocytes # (Manual) 0.23 L (0.30-0.80) 10^3/uL Eosinophils # (Manual) 0.07 (0.00-0.70) 10^3/uL Basophils # (Manual) 0.07 (0.00-0.10) 10^3/uL PT 11.2 (9.0-11.6) sec INR 1.06 Sodium 135 L (136-145) mmol/L Potassium 2.4 L* (3.5-5.1) mmol/L Chloride 99 (98-107) mmol/L Carbon Dioxide 24.1 (21.0-32.0) mmol/L Anion Gap 14.3 BUN 26.0 H (7.0-18.0) mg/dL Creatinine 1.41 H (0.55-1.02) mg/dL Est GFR ( Amer) 45 L (>=60 mL/min/1.73m^2) Est GFR (Non-Af Amer) 37 L (>=60 mL/min/1.73m^2) BUN/Creatinine Ratio 18.4 Glucose 105 (74-106) mg/dL Lactate 2.6 H* (0.4-2.0) mmol/L Calcium 9.0 (8.5-10.1) mg/dL Magnesium 1.6 L (1.8-2.4) mg/dL Total Bilirubin 0.9 (0.2-1.0) mg/dL AST 17 (15-37) U/L ALT <6 L (14-59) U/L Alkaline Phosphatase 135 H (46-116) U/L Total Protein 6.7 (6.4-8.2) g/dL Albumin 3.5 (3.4-5.0) g/dL Globulin 3.2 g/dL Albumin/Globulin Ratio 1.1 Lipase 48.0 (16.0-77.0) U/L Urine Color Dk. orange (YELLOW) Urine Clarity Clear (CLEAR) Urine pH 5.5 (5.0-9.0) Ur Specific Aldrich 1.025 (1.005-1.025) Urine Protein 30 A (NEG/TRACE) mg/dL Urine Glucose (UA) 100 A (NEGATIVE) mg/dL Urine Ketones 15 A (NEGATIVE) mg/dL Urine Occult Blood Negative (NEGATIVE) Urine Nitrite Negative (NEGATIVE) Urine Bilirubin Small A (NEGATIVE) Urine Urobilinogen 1.0 (0.2-1.0) EU/dL Ur Leukocyte Esterase Trace A (NEGATIVE) Urine RBC None seen (0-2) #/HPF Urine WBC 0-2 A (NONE SEEN) #/HPF Ur Squamous Epith Cells Few A (NONE/RARE) #/LPF Urine Crystals None seen (None Seen) #/HPF Urine Bacteria Trace A (NONE SEEN) #/HPF Urine Casts Seen A (NONE SEEN) #/LPF Hyaline Casts Few Urine Mucus Trace A (NONE SEEN) Ur Culture Indicated? No Imaging Data CT scan - abdomen: Attestation: I have reviewed the pertinent imaging results. Radiologist's impression: NAD Discharge Plan Discharge Chief Complaint: Nausea/Vomiting/Diarrhea Patient Disposition: Admitted As Inpatient Time of Disposition Decision: 18:21
[2024-09-21] MEDS: LIDOCAINE VISCOUS 2% 15 ML SOLUTION TOPICAL (16:39)
[2024-09-21] MEDS: 0.9 % SODIUM CHLORIDE 1,000 ML 999 ML IV (16:40)
[2024-09-21] MEDS: HYOSCYAMINE SULFATE 0.125 MG TAB.SUBL SL (16:40)
[2024-09-21] MEDS: ONDANSETRON PF 4 MG/2 ML VIAL IV (16:40)
[2024-09-21 16:45] LABS: Hematocrit 32.2 % (36.0-48.0); Hemoglobin 11.4 g/dL (12.0-16.0); Mean Corpuscular HGB Conc 35.4 g/dL (29.9-35.2); Mean Corpuscular Hemoglobin 29.8 pg (26.7-34.0); Mean Corpuscular Volume 84.3 fL (81.0-99.0); Mean Platelet Volume 8.9 fL (9.5-13.5); Platelet Count 404 10^3/uL (150-450); Red Blood Count 3.82 10^6/uL (4.20-5.40); Red Cell Distribution Width 12.6 % (11.0-15.0); White Blood Count 7.8 10^3/uL (4.0-11.0)
[2024-09-21 16:48] LABS: Bilirubin Urine SMALL (NEGATIVE); Blood Urine NEGATIVE (NEGATIVE); Clarity Urine CLEAR (CLEAR); Color Urine DK. ORANGE (YELLOW); Glucose Urine UA 100 mg/dL (NEGATIVE); Ketones Urine 15 mg/dL (NEGATIVE); Leukocyte Esterase Urine TRACE (NEGATIVE); Nitrite Urine NEGATIVE (NEGATIVE); Protein Urine 30 mg/dL (NEG/TRACE); Specific Gravity Urine 1.025 (1.005-1.025); pH Urine 5.5 (5.0-9.0)
[2024-09-21 16:59] LABS: INR 1.06; Prothrombin Time 11.2 sec (9.0-11.6)
[2024-09-21 17:02] LABS: Alanine Aminotransferase <6 U/L (14-59); Albumin Globulin Ratio 1.1; Albumin Level 3.5 g/dL (3.4-5.0); Alkaline Phosphatase 135 U/L (46-116); Anion Gap 14.3; Aspartate Amino Transferase 17 U/L (15-37); BUN Creatinine Ratio 18.4; Bilirubin Total 0.9 mg/dL (0.2-1.0); Carbon Dioxide 24.1 mmol/L (21.0-32.0); Chloride 99 mmol/L (98-107); Estimated GFR (African America 45 (>=60 mL/min/1.73m^2); Estimated GFR (Non-African Ame 37 (>=60 mL/min/1.73m^2); Globulin 3.2 g/dL; Glucose 105 mg/dL (74-106); Magnesium 1.6 mg/dL (1.8-2.4); Sodium 135 mmol/L (136-145); Total Protein 6.7 g/dL (6.4-8.2)
[2024-09-21 17:08] LABS: Crystals Seen? None Seen #/HPF (None Seen); Mucus Urine TRACE (NONE SEEN); RBC Urine NONE SEEN #/HPF (0-2); Squamous Epithelial Cell Urine FEW #/LPF (NONE/RARE); WBC Urine 0-2 #/HPF (NONE SEEN)
[2024-09-21 17:09] LABS: Bacteria Urine TRACE #/HPF (NONE SEEN); Cast Seen? SEEN #/LPF (NONE SEEN); Hyaline Casts Urine FEW; Urine Culture Indicated NO
[2024-09-21 17:13] LABS: Basophils Abs Manual 0.07 10^3/uL (0.00-0.10); Eosinophils Absolute Manual 0.07 10^3/uL (0.00-0.70); Lymphocytes Absolute Manual 0.31 10^3/uL (1.20-3.80); Monocytes Absolute Manual 0.23 10^3/uL (0.30-0.80); Segmented Neut Absolute Manual 7.09 10^3/uL (1.4-6.5)
[2024-09-21 17:14] LABS: Lactate/Lactic Acid 2.6 mmol/L (0.4-2.0); Potassium 2.4 mmol/L (3.5-5.1)
[2024-09-21] MEDS: POTASSIUM BICARBONATE/CIT 25 MEQ TABLET EFF 50 MEQ PO (17:41)
[2024-09-21] MEDS: POTASSIUM CHLORIDE IN 0.9%NACL 1,000 ML 250 ML IV (17:41)
[2024-09-21 20:06] LABS: Lactate/Lactic Acid 0.9 mmol/L (0.4-2.0)
[2024-09-21] MEDS: MAGNESIUM SULFATE IN WATER 2 GM/50 ML PREMIX IV (21:19)
[2024-09-21] MEDS: RIVASTIGMINE TARTRATE 1.5 MG CAPSULE 3 MG PO (21:19)
[2024-09-21] MEDS: POTASSIUM CHLORIDE 10 MEQ ER TABLET 20 MEQ PO (21:19)
[2024-09-21] MEDS: CALCIUM CARBONATE 600 MG TABLET PO (21:20)
[2024-09-21] MEDS: MIRTAZAPINE 15 MG TABLET 30 MG PO (21:20)
[2024-09-22] VITALS (13 sets, daily range): BP systolic 115–128; BP diastolic 48–77; PULSE 88–113; TEMP 36.5–36.6; O2SAT 95–98
[2024-09-22 05:56] LABS: Basophils Percent Auto 0.2 % (0.2-2.0); Eosinophils Percent Auto 0.2 % (0.9-7.0); Immature Granulocytes Abs Auto 0.01 10^3/uL (0.00-0.03); Immature Granulocytes Pct Auto 0.2 % (0.0-0.5); Lymphocytes Absolute Auto 0.4 10^3/uL (1.2-3.8); Lymphocytes Percent Auto 9.4 % (20.5-60.0); Mean Corpuscular HGB Conc 34.5 g/dL (29.9-35.2); Mean Corpuscular Hemoglobin 29.4 pg (26.7-34.0); Mean Corpuscular Volume 85.3 fL (81.0-99.0); Mean Platelet Volume 9.2 fL (9.5-13.5); Monocytes Absolute Auto 0.5 10^3/uL (0.3-0.8); Monocytes Percent Auto 10.8 % (1.7-12.0); Neutrophils Absolute Auto 3.5 10^3/uL (1.4-6.5); Neutrophils Percent Auto 79.2 % (43.0-75.0); Platelet Count 295 10^3/uL (150-450); Red Cell Distribution Width 12.7 % (11.0-15.0); White Blood Count 4.4 10^3/uL (4.0-11.0)
[2024-09-22] MEDS: CARBIDOPA/LEVODOPA 25 MG-100 MG TABLET 3 TAB PO ×3 (05:58→14:49)
[2024-09-22] MEDS: PANTOPRAZOLE SODIUM 40 MG TABLET.DR PO (05:58)
[2024-09-22] MEDS: CALCIUM CARBONATE 600 MG TABLET PO ×2 (05:58→14:48)
[2024-09-22 06:14] LABS: Alanine Aminotransferase 9 U/L (14-59); Albumin Level 2.9 g/dL (3.4-5.0); Alkaline Phosphatase 118 U/L (46-116); Anion Gap 14.3; Aspartate Amino Transferase 18 U/L (15-37); BUN Creatinine Ratio 22.1; Bilirubin Total 0.5 mg/dL (0.2-1.0); Calcium 8.3 mg/dL (8.5-10.1); Carbon Dioxide 24.4 mmol/L (21.0-32.0); Chloride 104 mmol/L (98-107); Estimated GFR (African America >60 (>=60 mL/min/1.73m^2); Estimated GFR (Non-African Ame >60 (>=60 mL/min/1.73m^2); Globulin 2.8 g/dL; Glucose 83 mg/dL (74-106); Sodium 140 mmol/L (136-145); Total Protein 5.7 g/dL (6.4-8.2)
[2024-09-22 06:17] LABS: Potassium 2.7 mmol/L (3.5-5.1)
[2024-09-22] MEDS: LACTATED RINGER'S SOLUTION 1,000 ML 125 ML IV (07:28)
[2024-09-22] MEDS: POTASSIUM CHLORIDE 10 MEQ ER TABLET 40 MEQ PO (07:28)
[2024-09-22] MEDS: POTASSIUM CHLORIDE 40 MEQ in 0.9 % SODIUM CHLORIDE 250 ML 67.5 MEQ IV (08:19)
[2024-09-22] MEDS: MEGESTROL ACETATE 400 MG/10 ML ORAL.SUSP 80 MG PO (09:10)
[2024-09-22] MEDS: TIMOLOL MALEATE 0.5% OP SOL 100 DROPS/5 ML BOTTLE 1 DROP OP (09:10)
[2024-09-22] MEDS: ENTACAPONE 200 MG TABLET PO (09:11)
[2024-09-22] MEDS: RIVASTIGMINE TARTRATE 1.5 MG CAPSULE 3 MG PO (09:11)
[2024-09-22] MEDS: CHOLECALCIFEROL (VITAMIN D3) 25 MCG/1,000 UNITS TABLET PO (09:11)
[2024-09-22] MEDS: SERTRALINE HCL 100 MG TABLET 200 MG PO (09:11)
--- NOTE | 2024-09-22 09:29 | CM.NOTE ---
Rounds made with Dr. Sainz. Dr. Sainz reviews plan of care with [facility]av[facility]. Potential discharge later today after repeat labs @ 1300.
[2024-09-22 12:21] LABS: C. Difficile PCR NEGATIVE
--- NOTE | 2024-09-22 12:58 | SWNOTE1 ---
Pt is from [facility]. SW to fax updates, possible discharge today.
[2024-09-22 13:38] LABS: Anion Gap 13.1; BUN Creatinine Ratio 16.7; Calcium 8.1 mg/dL (8.5-10.1); Carbon Dioxide 23.9 mmol/L (21.0-32.0); Chloride 104 mmol/L (98-107); Estimated GFR (African America >60 (>=60 mL/min/1.73m^2); Estimated GFR (Non-African Ame >60 (>=60 mL/min/1.73m^2); Glucose 89 mg/dL (74-106); Sodium 137 mmol/L (136-145)
--- NOTE | 2024-09-22 14:36 | SWNOTE1 ---
SOILA stopped in and spoke with pt and her friend. SW explained to them both that therapy is recommending rehab for a short time. SOILA explained that she is inpt, but does not have 3 days stay and is medically stable for discharge today. Therefore Medicarew would not cover and it would be out of pocket. Pt's friend does feel like she needs to go. Pt became tearful and stated she just wants to go home. Pt voiced she is just tired and does not understand why everyone won't leave her alone. She stated she is tired of going all these places. SW expressed to pt that she does not have to go and it was just what was recommended. SOILA asked pt if we could call her sister, Hetal. Pt is in agreement. SW attempted to call in room, no answer. SW did ask pt several questions to confirm if pt is alert and oriented. Pt did voice she was at [facility] and it was 2025. Pt was unsure of month and stated Biden for president. SOILA called pt's sister Hetal. They are out of town right now and this always happens when they are out of town. SOILA advised Hetal that rehab was recommended. Hetal stated when she went to [place] last time, pt did not eat and lost weight. She eventually did not participate in therapy either. Hetal does feel that her returning to [facility] would be best. Hetal stated [facility] is coming in at this time and they will resume that. Hetal voiced they will take good care of her at [place] as well. SOILA to let pt know. SOILA updated nurse. SOILA let pt know and friend in room. Pt in agreement. SOILA set up trips transportation for 4:45 for pt to return to [facility]. SOILA let nurse know time. SOILA let [facility] know time. SOILA faxed updates to [facility] including; face sheet, ED note, H&P, dc med rec, PT note, labs, and vitals. SOILA faxed dc med rec, H&P, ED note, and PT note to [facility]. Also faxed [facility] to resume care.
[2024-09-22] MEDS: BRIMONIDINE TARTRATE 0.15 % OP SOL 100 DROP/5 ML BOTTLE EYE-BOTH (14:49)
--- NOTE | 2024-09-22 14:49 | SWNOTE1 ---
Important Message from Medicare reviewed and discussed with patient's sister, Hetal. Pt's sister, Hetal, verbalized understanding and SW signed the form that it was reviewed. Original placed in pt's room and copy placed in patient?s chart.
--- NOTE | 2024-09-22 14:55 | PM.HP ---
HPI H&P: HPI History of Present Illness Chief complaint: DIARRHEA, HYPOKALEMIA, DEHYDRATION Narrative: HPI and Hospital Course 68 y o female who lives in an assisted living facility, has hx of parkinson has chronic diarrhea that is ongoing for years. However, past couple of days, she noticed that her diarrhea was worse with 6-8 BM per day. She reports feeling tired and weak. Denies nausea, vomiting, abdominal pain. Denies new medications or eating anything unusual. Work up in ED revealed hypokalemia and KATHERYN. She was started on IVF and potassium was replaced. Her diarrhea resolved by itself. Her potassium and renal fx was normal on most recent labs. Patient medically stable for discharge. F/u with PCP in one week. Discharge Disposition Assisted living Final Diagnosis Chronic diarrhea Dehydration Hypokalemia Discharge Status Stable. Opioid HPI Opioid Management Most Recent Pain and Opioid Data: Last Pain Scale 10 05/28/24, 13:10 Last Pain Assessment 09/21/24, 20:00 Last ORT Total Score 0 09/21/24, 19:48 Last ORT Risk Category Low Risk 09/21/24, 19:48 Review of Systems ROS Status of ROS 10 or more systems reviewed and unremarkable except as noted in history and below [facility] Medical History (Updated 09/22/24 @ 15:27 by Shaikh Alistair MD) MDD (major depressive disorder) ?F32.9 - Major depressive disorder, single episode, unspecified (ICD-10) Anxiety ?F41.9 - Anxiety disorder, unspecified (ICD-10) Peripheral neuropathy ?G62.9 - Polyneuropathy, unspecified (ICD-10) Acute hypokalemia ?E87.6 - Hypokalemia (ICD-10) Fall ?W19.XXXA - Unspecified fall, initial encounter (ICD-10) Closed sacral fracture ?S32.10XA - Unspecified fracture of sacrum, initial encounter for closed fracture (ICD-10) Protein calorie malnutrition ?E46 - Unspecified protein-calorie malnutrition (ICD-10) Weakness ?R53.1 - Weakness (ICD-10) Osteoporosis ?M81.0 - Age-related osteoporosis without current pathological fracture (ICD-10) Glaucoma ?H40.9 - Unspecified glaucoma (ICD-10) Depression with anxiety ?F41.8 - Other specified anxiety disorders (ICD-10) GERD (gastroesophageal reflux disease) ?K21.9 - Gastro-esophageal reflux disease without esophagitis (ICD-10) Difficulty in walking ?R26.2 - Difficulty in walking, not elsewhere classified (ICD-10) Parkinson disease ?G20.A1 - Parkinson's disease without dyskinesia, without mention of fluctuations (ICD-10) Abdominal pain ?R10.9 - Unspecified abdominal pain (ICD-10) Surgical History H/O: hysterectomy ?Z90.710 - Acquired absence of both cervix and uterus (ICD-10) Family History Brother Family history of cancer Grandmother Family history of hypertension Family history of stroke Social History Within the past year, how often did you have a drink containing alcohol: never Score interpretation: A score less than 3 is consistent with normal alcohol consumption. Smoking status: Never smoker Non-prescribed substance use: denies use Previous occupational history: retired Known occupational exposures/hazards: No Highest level of school completed/degree received: high school graduate Are you now , , , , never or living with a partner: In a typical week, how many times do you talk on the telephone with family, friends, or neighbors: twice per week How often do you get together with friends or relatives: never How often do you attend sabianist or yazdanism services: never Do you belong to any clubs or organizations such as sabianist groups unions, fraternal or athletic groups, or school groups: yes Total score: 2 Score interpretation: A score of greater than or equal to 2 indicates the lowest level of social isolation. Little interest or pleasure in doing things: not at all Feeling down, depressed, or hopeless: not at all Feel stressed/tense/nervous/anxious/difficulty sleeping: not at all Life stressors: other Life stressor details: prefer not to say Do you think of yourself as: straight/heterosexual Gender Identity: female Meds Home Medications and Allergies Home Medications ?Medication ?Instructions ?Recorded ?Confirmed ?Type brimonidine 0.2 % eye drops 1 drp ophthalmic (eye) TID 01/27/23 09/21/24 History melatonin 5 mg tablet 5 mg PO BEDTIME sleep 01/27/23 09/21/24 History omeprazole 40 mg capsule,delayed 40 mg PO QAM 01/27/23 09/21/24 History release timolol maleate 0.5 % eye drops 1 drp ophthalmic (eye) QAM 01/27/23 09/21/24 History loperamide 2 mg capsule 2 mg PO Q6H PRN loose stool 01/28/23 09/21/24 History (Anti-Diarrheal (loperamide)) baclofen 10 mg tablet 10 mg PO DAILY PRN muscle spasm 09/07/23 09/21/24 History psyllium husk 3.4 gram/5.4 gram 1 tbsp PO QPM 09/07/23 09/21/24 History oral powder (Metamucil) sertraline 50 mg tablet 200 mg PO DAILY 09/07/23 09/21/24 History baclofen 20 mg tablet 20 mg PO BEDTIME 05/28/24 05/28/24 History cholecalciferol (vitamin D3) 25 1,000 unit PO DAILY 05/28/24 09/21/24 History mcg (1,000 unit) capsule (Vitamin D3) hydroxyzine HCl 25 mg tablet 25 mg PO Q6H PRN anxiety 05/28/24 09/21/24 History lorazepam 0.5 mg tablet 0.25 mg PO Q12H PRN anxiety 05/28/24 09/21/24 History megestrol 40 mg tablet 80 mg PO DAILY 05/28/24 09/21/24 History mirtazapine 30 mg tablet 30 mg PO BEDTIME 05/28/24 09/21/24 History ondansetron HCl 4 mg tablet 4 mg PO Q8H PRN nausea and vomiting 05/28/24 09/21/24 History potassium chloride 20 mEq/15 mL 20 meq PO BID 05/28/24 09/21/24 History oral liquid rivastigmine tartrate 3 mg capsule 3 mg PO BID 05/28/24 09/21/24 History acetaminophen 325 mg capsule 650 mg PO Q6H PRN pain 09/21/24 09/21/24 History calcium carbonate (Tums) 650 mg PO TID indigestion 09/21/24 09/21/24 History carbidopa 25 mg-levodopa 100 mg 3 tab PO TID 09/21/24 09/21/24 History tablet carbidopa 25 mg-levodopa 100 mg 2 tab PO DAILY 09/21/24 09/21/24 History tablet (Sinemet) entacapone 200 mg tablet 200 mg PO QAM 09/21/24 09/21/24 History ibandronate 150 mg tablet 150 mg PO .[id number] 09/21/24 09/21/24 History Allergies Allergy/AdvReac Type Severity Reaction Status Date / Time bupropion (From Wellbutrin) Allergy Unknown Verified 01/21/24 14:22 Exam Constitutional Vital Signs, click to edit/add: Last Vital Signs Temp 97.8 F 09/22/24 11:48 Pulse 106 H 09/22/24 13:52 Resp 18 09/22/24 11:48 BP 123/59 09/22/24 11:48 Pulse Ox 98 09/22/24 11:48 O2 Del Method Room Air 09/22/24 11:48 Documenting provider has reviewed patient's vital signs: yes Common normals: no apparent distress and oriented x3 General appearance: cooperative, ill appearing and frail appearing Nutritional appearance: thin HENMT Common normals: normocephalic and head/scalp atraumatic Head and scalp: normocephalic and atraumatic Eye Common normals: conjunctivae normal and no scleral icterus Conjunctiva: conjunctiva(e) normal Respiratory Common normals: normal respiratory effort and clear to auscultation bilaterally Effort & inspection: able to speak in complete sentences Auscultation: clear to auscultation bilaterally Cardio Common normals: regular rate, S1 normal heart sound and S2 normal heart sound Rate: regular rate Heart sounds: S1 normal and S2 normal GI Common normals: Normal to inspection, nondistended, normoactive bowel sounds present, soft to palpation, non-tender and no hepatosplenomegaly Palpation: soft and no hepatosplenomegaly Extremity Common normals: no clubbing, cyanosis or edema Neuro Common normals: oriented x3, moves all extremities and no focal motor deficits Psych Common normals: mental status grossly normal, denies hallucinations, denies homicidal ideation and denies suicidal ideation Results Labs Labs: Short CBC 09/21/24 09/22/24 Range/Units 16:35 05:21 WBC 7.8 4.4 (4.0-11.0) 10^3/uL Hgb 11.4 L 10.0 L (12.0-16.0) g/dL Hct 32.2 L 29.0 L (36.0-48.0) % Plt Count 404 295 (150-450) 10^3/uL BMP 09/21/24 09/22/24 09/22/24 16:35 05:21 13:15 Sodium 135 L 140 137 Potassium 2.4 L* 2.7 L* 4.0 Chloride 99 104 104 Carbon Dioxide 24.1 24.4 23.9 BUN 26.0 H 17.0 12.0 Creatinine 1.41 H 0.77 0.72 Glucose 105 83 89 Calcium 9.0 8.3 L 8.1 L Liver Function 09/21/24 09/22/24 Range/Units 16:35 05:21 Total Bilirubin 0.9 0.5 (0.2-1.0) mg/dL AST 17 18 (15-37) U/L ALT <6 L 9 L (14-59) U/L Alkaline Phosphatase 135 H 118 H (46-116) U/L Albumin 3.5 2.9 L (3.4-5.0) g/dL Urine 09/21/24 Range/Units 16:30 Urine Color Dk. orange (YELLOW) Urine Clarity Clear (CLEAR) Urine pH 5.5 (5.0-9.0) Ur Specific [place] 1.025 (1.005-1.025) Urine Protein 30 A (NEG/TRACE) mg/dL Urine Glucose (UA) 100 A (NEGATIVE) mg/dL Assessment and Plan Assessment and Plan (1) Acute hypokalemia: Assessment and Plan: likely due to diarrhea. resolved. (2) Diarrhea: Assessment and Plan: chronic, ongoing. No BM while in the hospital. Will need outpatient w/u and follow up for it. Qualifiers: Diarrhea type: unspecified type Qualified Code(s): R19.7 - Diarrhea, unspecified (3) Dehydration: Assessment and Plan: due to diarrhea. resolved. (4) Protein calorie malnutrition: Assessment and Plan: severe Protein caloric malnutrition. Evidence of muscle wasting, loss of subcutaneous tissue. BMI of only 15. Qualifiers: Protein-calorie malnutrition severity: severe Qualified Code(s): E43 - Unspecified severe protein-calorie malnutrition (5) Depression with anxiety: Assessment and Plan: c/w home medications (6) Parkinson disease: Assessment and Plan: C/w home medications. f/u with Neurology as outpatient. Qualifiers: Dyskinesia presence: with dyskinesia Fluctuating manifestations: with fluctuating manifestations Qualified Code(s): G20.B2 - Parkinson's disease with dyskinesia, with fluctuations Urinary Catheter Management Urinary Catheter Management Urethral: Cath placed during this visit: yes Urethral indwelling: No Insertion date: 09/21/24
--- NOTE | 2024-09-22 15:01 | SWNOTE1 ---
Pt has an observation order in. Medicare Outpatient Observation Notice reviewed and discussed with patient's daughter, Hetal. Pt's daughter, Hetal, verbalized understanding and signed the form. Original given to patient and copy placed in patient?s chart.
--- NOTE | 2024-09-22 15:02 | SWNOTE1 ---
Pt has Observation order placed. Medicare Outpatient Observation Notice reviewed and discussed with patient's sister, Hetal. Pt's daughter, Hetal, verbalized understanding and SW signed the form that it was reviewed. Original placed in pt's room and copy placed in patient?s chart.
--- NOTE | 2024-09-22 16:22 | PC.NURSE ---
Report given to nurse Juares at [facility] regarding pt returning. [place] nurse denied questions and needs.
--- OUTSIDE RECORDS SUMMARY | 2024-09-25 08:02 | XMS_ITS | CCD ---
Author Organization [facility] Care Team Providers Care Counselor Dormitory Name Role Phone FANNING, RICARDO E Unavailable Unavailable FANNING, RICARDO E Unavailable Unavailable PAY ., DR DAVID Admitting Unavailable PAY ., DR DAVID Attending Unavailable JASPREET, DR SANABRIA Primary Care Unavailable PAY ., DR DAVID Consulting Unavailable GRECHNY ., SALLY CARABALLO Consulting Unavailabl e Jaspreet COLEMAN, Shea Augie Primary Care Provider Enrico GASOLINE TRUCK CRANE OPERATOR, Saira R Unavailable Enrico GASOLINE TRUCK CRANE OPERATOR, Saira R Unavailable Jaspreet COLEMAN, Shea Ghosh Unavailable JASPREET, SHEA F Primary Care Unavailable BELINDA DUMONT Consulting Unavailabl e INPATIENT, TELENEUROLOGY Consulting Unavail able DYLAN CALI Attending Unavailable SUSHIL PIERCE Referring Unavailable JASPREET, SHEA F Primary Care Unavailable ILIANA MCKOY Attending Unavailable JASPREET, SHEA F Referring Unavailable JASPREET, SHEA F Primary Care Unavailable EVE PEREZ Attending Unavailable JASPREET, SHEA F Referring Unavailable JASPREET, SHEA F Primary Care Unavailable EVE PEREZ Attending Unavailable JASPREET, SHEA F Referring Unavailable [...] Care Unavailable KYUNG, EHAD Attending Unavailable JASPREET, SHAE F Referring Unavailable JASPREET, SHEA F Primary Care Unavailable JASPREET, SHEA F Primary Care Unavailable SISI BROOKE Attending Unavailable JASPREET, SHEA Ghosh Referring Unavailable JASPREET, SHEA Ghosh Primary Care Unavailable ILIANA MCKOY Referring Unavailable JASPREET, SHEA Ghosh Primary Care Unavailable Enrico GASOLINE TRUCK CRANE OPERATOR, Saira Pelaez Unavailable Sadaf-Nossek UNIX DEVELOPER-LARRY CAR OPERATOR, Shashi Natarajan Unavailable [facility] Unavailable Unavailable Ralph SHRESTHA, Sue Unavailable Master Alexander DO Unavailable [phone] FOREIGN GONZALES Attending Unavailable SADAF-NOSSEK, SHASHI Natarajan Referring Unavailab johny LEGERETTMASTER Attending Unavailable JASPREET, SHEA Ghosh Referring Unavailable FOREIGN GONZALES Attending Unavailable SADAF-NOSSEK, SHASHI Natarajan Attending Unavailab johny ROSASSUE Attending Unavailable JASPREET, SHEA Augie Attending Unavailable JASPREET, SHEA Augie Attending Unavailable JASPREET, SHEA Augie Referring Unavailable SADAF-NOSSEK, SHASHI Natarajan Attending Unavailab le JASPREET, SHEA Augie Attending Unavailable JASPREET, SHEA uAgie Referring Unavailable SADAF-NOSSEK, SHASHI Natarajan Attending Unavailab le JASPREET, SHEA Augie Attending Unavailable BENJAMINMASTER Attending Unavailable JASPREET, SHEA Augie Attending Unavailable JASPREET, SHEA Augie Referring Unavailable JASPREET, SHEA Augie Attending Unavailable JASPREET, SHEA Augie Attending Unavailable SADAF-NOSSEK, SHASHI Natarajan Attending Unavailab le SADAF-NOSSEK, SHASHI Natarajan Attending Unavailab le JASPREET, SHEA Augie Attending Unavailable Allergies Allergy Classification Reported Allergen(s) Allergy Type Date of Onset Reaction(s) Facility (1 source) buPROPion Drug Allergy 08-26-2022 [facility] Repository (20 sources) buPROPion Drug Allergy 09-26-2022 Unknown [facility] (2 sources) buPROPion; Translations: [BUPROPION HCL] Drug Allergy 01-06-2022 [facility] Repository Medications Current Medications Medication Drug Class(es) Dates Sig (Normalized) Sig (Original) acetaminophen 500 mg oral tablet (20 sources) take 2 tablets by mouth every eight hours as needed for pain acetaminophen (Tylenol) 500 MG tablet Take 1,000 mg by mouth every 8 (eight) hours if needed for mild pain Active baclofen 10 mg oral tablet (20 sources) gamma-Aminobutyr ic Acid-ergic Agonist Start: 09-27-2023 take 1 tablet by mouth every eight hours baclofen (Lioresal) 10 MG tablet Indications: Muscle cramping Take 1 tablet (10 mg) by mouth every 8 (eight) hours 120 tablet 3 09/27/2023 Active Start: 07-01-2023 End: 07-31-2023 take 1 [...] bedtime. 90 tablet 0 07/01/2023 07/31/2023 Active brimonidine tartrate 2 mg/ml ophthalmic solution [...] bedtime. 0 Active calcium carbonate 500 mg chewable tablet (20 sources) calcium carbonat e (Tums) 500 MG chewable tablet Chew 500 mg as needed in the morning and 500 mg as needed at noon and 500 mg as needed in the evening for heartburn or indigestion. Active carbidopa 25 mg / levodopa 100 mg oral tablet (20 sources) Aromatic Amino Acid Decarboxylation Inhibitor, Aromatic Amino Acid Start: 09-27-2023 carbidopa-levodopa CR (Sinemet CR) 25-100 MG ER tablet Take 1 tablet by mouth in the morning and 1 tablet at noon and 1 tablet in the evening and 1 tablet before bedtime. Take 1 tab at 6am, 10am, 2pm, and 6pm. . 07/10/2024 Active Start: 04-28-2022 carbidopa-levo dopa (Sinemet) 25-100 MG tablet Take 2 tablets by mouth in the morning and 2 tablets at noon and 2 tablets in the evening and 2 tablets before bedtime. Also taking Carb-lev CR QID Take at 6am, 10am, 2pm, and 6pm. . 07/10/2024 Active Start: 04-28-2022 take 1 tablet by [...] Take 25 mcg by mouth Daily Active cholecalciferol (Vitamin D-3) 50 MCG (2000 [...] by mouth once daily fish oil concentrate (Union Star-3) 1000 MG capsule Take 1 g by mouth Daily 02/16/2024 Discontinued (Therapy completed) entacapone 200 mg oral tablet (4 sources) Guwzoyac-C-Imujkqm ransferase Inhibitor Start: 08-28-2024 take 1 tablet by mouth once daily in the morning entacapone (Comtan) 200 MG tablet Indications: Parkinson's disease without dyskinesia, unspecified whether manifestations fluctuate (CMS/HCC) Take 1 tablet by mouth once daily in the morning (at 6:00 am). Take with Sinemet dose. 30 tablet 1 08/28/2024 Active gabapentin 300 mg oral capsule (20 sources) [...] daily after 2 weeks. 03/07/2024 05/26/2024 Discontinued take 1 capsule by mo uth in the morning, then take 1 capsule by mouth in the evening, then take 1 capsule by mouth at bedtime gabapentin (Neurontin) 400 MG capsule Take 400 mg by mouth in the morning and 400 mg in the evening and 400 mg before bedtime. 0 Active hydrOXYzine pamoate 25 mg oral capsule (20 sources) Antihistamine Start: 07-17-2024 End: 09-15-2024 take 1 capsule by mouth every eight hours for anxiety hydrOXYzine pamoate (Vistaril) 25 MG capsule Indications: Generalized anxiety disorder (CMS/HCC) Take 1 capsule (25 mg) by mouth every 8 (eight) hours if needed for anxiety 60 capsule 2 08/16/2024 09/15/2024 Active Start: 11-18-2023 End: 01-24-2024 hydrOXYzine HCl (Atarax) 25 MG tablet Take by mouth every 6 (six) hours if needed for anxiety 11/18/2023 01/24/2024 Discontinued End: 07-17-2024 take 1 capsule by mouth every six hours as needed hydrOXYzine pamoate (Vistaril) 25 MG capsule Take 25 mg by mouth every 6 (six) hours if needed for itching 1 tablet po q6h prn 07/17/2024 Discontinued (Reorder) hyoscyamine sulfate 0.125 mg oral tablet (20 sources) take 1 tablet by mouth every four hours as needed hyoscyamine (Anaspaz,Levsin) 0.125 MG tablet Take 0.125 mg by mouth every 4 (four) hours if needed for cramping Active ibandronic acid 150 mg oral tablet (20 sources) Bisphosphonate Start: 4 End: take 1 tablet by mouth every 30 [...] 0 Active ibuprofen 400 mg oral tablet (20 sources) Nonsteroidal Anti-inflammatory Drug take 1 tablet by mouth every eight hours as needed for pain ibuprofen 400 MG tablet Take 400 mg by mouth every 8 (eight) hours if needed for moderate pain Take 1 tablet po every 8 hours as needed for up to 10 days Active loperamide hydrochloride 2 mg oral capsule (20 sources) Opioid Agonist take 1 capsule by mouth every six hours as needed loperamide (Imodium) 2 MG capsule Take 2 mg by mouth as needed in the morning and 2 mg as needed at noon and 2 mg as needed in the evening and 2 mg as needed before bedtime for diarrhea. Take 1 capsule po every 6 hours as needed . Active take 1 capsule by [facility] four times daily as needed for diarrhea loperamide (Imodium) 2 MG capsule Take 2 mg by mouth 4 (four) times a day as needed for diarrhea 0 Active LORazepam 0.5 mg oral tablet (20 sources) Benzodiazepine Start: 07-17-2024 End: 08-16-2024 take 0.5 tablet by mouth once LORazepam (Ativan) 0.5 MG tablet Indications: Generalized anxiety disorder (CMS/HCC) Take 0.5 tablets (0.25 mg) by mouth every 12 (twelve) hours 15 tablet 07/17/2024 Active Start: 12-13-2023 End: 07-17-2024 take 0.5 tablet by mouth every eight hours for anxiety LORazepam (Ativan) 0.5 MG tablet Indications: Generalized anxiety disorder (CMS/HCC) Take 0.5 tablets (0.25 mg) by mouth every 8 (eight) hours if needed for anxiety 30 tablet 04/03/2024 07/17/2024 Discontinued (Reorder) Start: 06-01-2023 LORazepam (Ati van) 0.5 MG tablet Indications: Generalized anxiety disorder (CMS/HCC) Take 0.5 tablets (0.25 mg) by mouth every 8 (eight) hours if needed for anxiety 1/2 tab bid prn for anxiety. May take up to tid for severe anxiety prn 45 tablet 1 06/01/2023 Active magnesium oxide 400 mg oral tablet (4 sources) Start: 01-08-2023 take 1 tablet by mouth once daily magnesium oxide (Mag-Ox) 400 MG tablet Indications: Severe episode of recurrent major depressive disorder, with psychotic features (HCC) (CMS/HCC) 1 tablet by mouth once a day 30 tablet 11 01/08/2023 Active megestrol acetate 40 mg oral tablet (20 sources) Progestin Start: 08-21-2024 End: 09-20-2024 take 2 tablets by mouth once daily megestrol (Megace) 40 MG tablet Indications: Weight loss Take 2 tablets (80 mg total) by mouth Daily. 60 tablet 1 08/21/2024 09/20/2024 Active Start: 03-08-2024 End: 04-07-2024 take 1 tablet [...] 30 tablet 2 02/16/2024 03/08/2024 Discontinued (Reorder) End: 08-21-2024 take 1 tablet by mouth once daily megestrol (Megace) 40 MG tablet Take 40 mg by mouth Daily. 08/21/2024 Discontinued (Reorder) melatonin 5 mg oral capsule (20 sources) take 1 tablet by mouth at bedtime Melatonin 5 MG capsule Indications: Insomnia Take 1 tablet by mouth at bedtime Active metroNIDAZOLE 500 mg oral tablet (8 sources) Nitroimidazole Antimicrobial Start: 01-22-20 End: 02-16-20 take 1 tablet by mouth in the morning metroNIDAZOLE (Flagyl) 500 MG tablet Take 500 mg by mouth in the morning and 500 mg before bedtime. X7 days. 01/22/2024 02/16/2024 Discontinued (Therapy completed) mirtazapine 30 mg oral tablet (20 sources) Start: 01-24-20 End: 07-18-19 take 1 tablet by mouth at bedtime mirtazapine (Remeron) 30 MG tablet Indications: Generalized anxiety disorder (CMS/HCC) , Insomnia, unspecified type Take 1 tablet (30 mg) by mouth at bedtime 30 tablet 2 07/17/2024 07/17/2025 Active Start: 12-13-2023 End: 12-12-2024 take 1 [...] oral capsule (20 sources) Proton Pump Inhibitor Start: 02-18-2023 End: 01-31-2025 take 1 capsule by mouth before mealtime omeprazole (PriLOSEC) [address] capsule Indications: Chronic gastritis without bleeding, unspecified gastritis type Take 1 capsule (40 mg) by mouth in the morning. Take before meals. Do not crush or chew.. 30 capsule 11 02/01/2024 01/31/2025 Active ondansetron 4 mg disintegrating oral tablet (20 sources) Serotonin-3 Receptor Antagonist Start: 01-22-2024 take 1 tablet by mouth every eight [...] if needed for nausea or vomiting 11/18/2023 01/24/2024 Discontinued psyllium 3400 mg powder for oral suspension (20 sources) psyllium (Metamu cil) 58.6 % packet Take 1 packet by mouth Daily Mix and drink with at least 8 ounces of water or juice. Active rivastigmine 3 mg oral capsule (20 sources) Start: take 1 capsule by mouth in the morning rivastigmine (Exelon) 3 MG capsule Take 3 mg by mouth in the morning and 3 mg before bedtime. 12/17/2023 Active sertraline 100 mg oral tablet (20 sources) Serotonin Reuptake Inhibitor Start: End: take 2 tablets by mouth once daily sertraline (Zoloft) 100 MG tablet Indications: Recurrent major depressive disorder, in partial remission (HCC) (CMS/HCC) Take 2 tablets (200 mg) by mouth Daily 30 tablet 1 07/17/2024 10/15/2024 Active Start: 09-22-2023 End: 01-24-2024 take 3 tablets by mouth once daily, then take 3 tablets by mouth once daily sertraline (Zoloft) 50 MG tablet Take 150 mg by mouth Daily Total dose is 150mg daily 09/22/2023 01/24/2024 Discontinued Start: 06-01-2023 End: 01-23-2025 take 1.5 tablets by mouth once daily sertraline (Zoloft) 100 MG tablet Indications: Generalized anxiety disorder (CMS/HCC) Take 1.5 tablets (150 mg) by mouth Daily 45 tablet 2 01/24/2024 01/23/2025 Active sodium chloride 1000 mg oral tablet (11 sources) End: 02-16-2024 take 1 tablet by mouth in the morning sodium chloride 1 g tablet Take 1 g by mouth in the morning and 1 g before bedtime. 02/16/2024 Discontinued (Therapy completed) 12 hr timolol 5 mg/ml ophthalmic solution (20 sources) beta-Adrenergic Beatrice Start: 09-09-2023 take 1 drop(s) into the eye(s) once daily timolol (Timoptic) 0.5 % ophthalmic solution Administer 1 drop into both eyes Daily 09/09/2023 Active take 1 drop(s) into the eye(s) in the morning timolol (Timoptic) 0.5 % ophthalmic solution Administer 1 drop into both eyes in the morning. 0 Active Completed/Discontinued Medications Medication Drug Class(es) Dates Sig (Normalized) Sig (Original) bisacodyl 10 mg rectal suppository (20 sources) Stimulant Laxative End: 07-17-2024 bisacodyl (Dulcolax) 10 MG suppository Insert into the rectum Daily as needed for constipation 07/17/2024 Discontinued busPIRone hydrochloride 7.5 mg oral tablet (4 sources) Start: 11-18-2023 End: 01-24-2024 take 1 tablet by mouth once daily busPIRone (Buspar) 7.5 MG tablet Take 7.5 mg by mouth Daily 11/18/2023 01/24/2024 Discontinued cyclobenzaprine hydrochloride 5 mg oral tablet (3 sources) Muscle Relaxant Start: 03-02-2023 End: 07-01-2023 cyclobenzaprine (Flexeril) 5 MG tablet Eyelid Cleansers [...] morning and 15 mL before bedtime. Active traMADol hydrochloride 50 mg oral tablet (20 sources) Opioid Agonist End: 07-17-2024 traMADol (Ultram) 50 MG tablet Take by mouth every 6 (six) hours if needed for severe pain 07/17/2024 Discontinued Problems Active Problems Problem Classification Problem Date [...] Onset: 2 09-26-2022 Chronic Nausea and vomiting (3 sources) Nausea with vomiting, unspecified; Translations: [Vomiting] Onset: 4 Episodic Nutritional deficiencies (20 sources) Deficiency of macronutrients; Translations: [Unspecified protein-calorie malnutrition] Onset: 4 12-30-2023 Chronic Osteoporosis (20 sources) Osteoporosis; Translations: [Age-related osteoporosis without current pathological fracture] Onset: 3 10-01-2022 Chronic Other aftercare (1 source) Other usp (current) drug therapy; Translations: [[facility] CURRENT DRUG THERAPY] Onset: 3 Episodic Other and ill-defined heart disease (20 sources) Left atrial enlargement; Translations: [Cardiomegaly] Onset: 3 10-01-2022 Chronic Other fractures (1 source) Wedge compression fracture of T7-T8 vertebra, initial encounter for closed fracture; Translations: [Wedge compression fracture of T7-T8 vertebra, initial encounter for closed fracture] Onset: 4 Episodic Other gastrointestinal disorders (6 sources) Oropharyngeal dysphagia; Translations: [Dysphagia, oropharyngeal phase] 03-08-2024 Episodic Other gastrointestinal disorders (2 sources) Diarrhea, [...] Chronic Other nutritional; endocrine; and metabolic disorders (9 sources) Weight loss; Translations: [Abnormal weight loss] 02-16-2024 Episodic Other nutritional; endocrine; and metabolic disorders (2 sources) Abnormal weight loss; Translations: [Abnormal weight loss] Onset: 4 Episodic Other nutritional; endocrine; and metabolic disorders (2 sources) Weight decreased; Translations: [Abnormal weight loss] 08-21-2024 Episodic Parkinson`s disease (5 sources) Parkinson's disease; Translations: [Parkinson's disease] Onset: 3 05-26-2024 Chronic Parkinson`s disease (2 sources) Parkinson`s disease; Translations: [Parkinson's disease without dyskinesia, with fluctuations] Onset: 2 Pathological fracture (2 sources) Pathological fracture due to osteoporosis; Translations: [Age-related osteoporosis with current pathological fracture, unspecified site, initial encounter for fracture] 08-21-2024 Episodic Residual codes; unclassified (20 sources) Periodic limb movement disorder; Translations: [Periodic limb movement disorder] Onset: 2 01-06-2023 Chronic Residual codes; unclassified (1 source) Periodic limb movement disorder; Translations: [Periodic limb movement disorder] Onset: 2 Chronic Residual codes; unclassified (10 sources) Periodic leg movements of sleep ; Translations: [Periodic limb movement disorder] Onset: 2 01-06-2023 Chronic Residual codes; unclassified (6 sources) Insomnia; Translations: [Insomnia, unspecified] 04-03-2024 Episodic Spondylosis; intervertebral disc disorders; other back problems (1 source) Spondylosis without myelopathy or radiculopathy, lumbar region; Translations: [Spondylosis without myelopathy or radiculopathy, lumbar region] Onset: 4 Chronic Thyroid disorders (20 sources) Non-toxic multinodular goiter; Translations: [Nontoxic multinodular goiter] Onset: 3 10-01-2022 Chronic Unclassified (20 sources) Parkinson's disease; Translations: [Parkinson's disease] Onset: 3 10-01-2022 Chronic Unclassified (1 source) Unknown / [...] Documented Da te Episodic/Chronic Cancer of uterus (1 source) Personal history of malignant neoplasm of other parts of uterus; Translations: [Personal history of malignant neoplasm of other parts of uterus] Onset: 2 Episodic Deficiency and other anemia (20 sources) Iron deficiency anemia; Translations: [Iron deficiency anemia, unspecified] Onset: 4 12-30-2023 Episodic E Codes: Adverse effects of medical drugs (1 source) Adverse effect of antineoplastic and immunosuppressive drugs, initial encounter; Translations: [Adverse effect of antineoplastic and immunosuppressive drugs, initial encounter] Onset: 2 Episodic E Codes: Fall (1 source) Unspecified fall, sequela; Translations: [Unspecified fall, sequela] Onset: 2 Episodic Mood disorders (20 sources) Mood disorders; Translations: [Depression, unspecified] Onset: 4 Resolved: 5 06-01-2023 Other circulatory disease (20 sources) Low blood pressure; Translations: [Hypotension, unspecified] Onset: 3 10-01-2022 Episodic Other circulatory disease (20 sources) History of hypotension; Translations: [Personal history of other diseases of the circulatory system] Onset: 2 01-06-2023 Episodic Other circulatory disease (1 source) Personal [...] of blood chemistry] Onset: 3 10-01-2022 Episodic Residual codes; unclassified (20 sources) Hallucinations; Translations: [Hallucinations, unspecified] Onset: 3 10-01-2022 Episodic Residual codes; unclassified (20 sources) Forgetful; Translations: [Other general symptoms and signs] Onset: 3 04-01-2023 Episodic Residual codes; unclassified (1 source) Personal [...] stenosis, cervical region] Onset: 3 10-01-2022 Episodic Results Test Name Value Interpretation Reference Range Facility C DIFFICILE BY PCRon 024 C. difficile toxin genes JOSE G+probe Ql (Stl) TOXIGENIC C DIFF Negative (qualifier value) 027 NAP1 Negative (qualifier value) Normal PRNEG [facility] Comment on above: Performed By: #### 8 2195-9 ####[facility] ([id number])[address] [place] [address] ([id number])[address] [facility] [address] [place] [address]#### 16772-7 ####[facility] ([id number])2130 [facility], [address] [place] [address]42 Calprotectin (Stl) [Mass/Mas s]on 03-23-2024 Calprotectin, F <50.0 Normal <50.0 (Normal) [facility] Comment on above: Result Comment: NOTE Test Performed by: [place] [address] Forming Machine Upkeep Mechanic Helper: Nina Cage Ph.D.; CLIA# [id number] Performed By: #### 2 5907-7, 98494-1 ####[facility] ([id number])[address] [place] [address]68 Elastase.pancreatic (Stl) [M ass/Mass]on 03-23-2024 Pancreatic Elastase, F 437 mcg/g Normal >200 (Normal) [facility] Comment on above: Result Comment: NOTE Test Performed by: [place] [address] Forming Machine Upkeep Mechanic Helper: Nina Cage Ph.D.; CLIA# [id number] Performed By: #### 2 5907-7, 50690-1 ####[facility] ([id number])[address] [place] [address] GI PANELon 03-23-2024 Gastrointestinal pathogens DNA and [...] SAPOVIRUS Not detected (qualifier value) Normal NDET [facility] Comment on above: Performed By: #### 8 2195-9 #### [facility] ([id number]) [address] [facility], [place] [address] [facility] ([id number]) [address], [address] [place] [address] #### 93736-1 #### [facility] ([id number]) [address] [place] [address] MR MRCP WITH MRI ABD W WO [...] Remedios Gardiner MD on 03/23/2024 9:14 AM IYousuf DO have personally reviewed the image(s) and agree with and/or edited the report Finalized by Yousuf Roman DO on 03/23/2024 11:34 AM Normal [facility] BASIC METABOLIC PANLon 03-08 Anion gap [Moles/Vol] 10 mmol/L Normal 5-15 [facility] Comment on above: Performed By: #### C BCA, BMP, 3040-3, LIVR, 63428-2 #### [facility] ([id number]) [address] [place] [address] Calcium [Mass/Vol] 9.2 mg/dL Normal 8.5-10.5 [facility] Comment on above: Performed By: #### C BCA, BMP, 3040-3, LIVR, 03091-7 #### [facility] ([id number]) [address] [place] [address]5919 Chloride [Moles/Vol] 103 mmol/L Normal 98-109 [facility] Comment on above: Performed By: #### C BCA, BMP, 3040-3, LIVR, 90704-0 #### [facility] ([id number]) [address] [place] [address] 65560 CO2 [Moles/Vol] 24 mmol/L Normal 22-32 [facility] Comment on above: Performed By: #### C BCA, BMP, 3040-3, LIVR, 95492-4 #### [facility] ([id number]) [address] [place] [address]22 Creatinine [Mass/Vol] 0.71 mg/dL Normal 0.40-1.00 [facility] Comment on above: Result Comment: METH OD TRACEABLE TO IDMS STANDARD Performed By: #### C BCA, BMP, 3040-3, LIVR, #### [facility] ([id number]) [address] [place] [address] 60742 eGFR (CKD-EPI) NON-RACE DEPENDENT >90 Normal >59 [facility] Comment on above: Result Comment: Reported eGFR is based on the CKD-EPI 2020 equation that does not use a race coefficient. Performed By: #### C BCA, BMP, 3040-3, LIVR, 51922-2 #### [facility] ([id number]) [address] [place] [address] 96666 Glucose [Mass/Vol] 111 mg/dL High 65-99 [facility] Comment on above: Performed By: #### C BCA, BMP, 3040-3, LIVR, 41391-2 #### [facility] ([id number]) [address] [place] [address] 22152 Potassium [Moles/Vol] 4.3 mmol/L Normal 3.5-5.0 [facility] Comment on above: Performed By: #### C BCA, BMP, 3040-3, LIVR, 14834-0 #### [facility] ([id number]) [address] [place] [address] 57876 Sodium [Moles/Vol] 137 mmol/L Normal 134-146 [facility] Comment on above: Performed By: #### C BCA, BMP, 3040-3, LIVR, #### [facility] ([id number]) [address] [place] [address] 48619 Urea nitrogen [Mass/Vol] 18 mg/dL Normal 5-27 [facility] Comment on above: Performed By: #### C BCA, BMP, 3040-3, LIVR, #### [facility] ([id number]) [address] [place] [address] 24683 CBC AND AUTO DIFFon 03-08-20 ABSOLUTE BASOPHIL 0.0 X10E9/L Normal 0.0-0.2 [facility] Comment on above: Performed By: #### C BCA, BMP, 3040-3, LIVR, #### [facility] ([id number]) [address] [place] [address] 10062 ABSOLUTE NEUTROPHIL 6.8 X10E9/L High 1.5-6.6 [facility] Comment on above: Performed By: #### C BCA, BMP, 3040-3, LIVR, #### [facility] ([id number]) [address] [place] [address] 99801 Basophils/100 WBC (Bld) 0.3 % Normal [facility] Comment on above: Performed By: #### C BCA, BMP, 304-3, LIVR, #### [facility] ([id number]) [address] [place] [address] 39887 Eosinophils (Bld) [#/Vol] 0.0 10*3/uL Normal 0.0-0.4 [facility] Comment on above: Performed By: #### C BCA, BMP, 3040-3, LIVR, #### [facility] ([id number]) [address] [place] [address] 49820 Eosinophils/100 WBC (Bld) 0.3 % Normal [facility] Comment on above: Performed By: #### C BCA, BMP, 3040-3, LIVR, #### [facility] ([id number]) [address] [place] [address] 62232 Erythrocyte distribution width (RBC) [Ratio] 14.2 % Normal 11.5-15.0 [facility] Comment on above: Performed By: #### C BCA, BMP, 3039-3, LIVR, #### [facility] ([id number]) [address] [place] [address] 79410 Hematocrit (Bld) [Volume fraction] 40.9 % Normal 35-47 [facility] Comment on above: Performed By: #### C BCA, BMP, 3039-3, LIVR, #### [facility] ([id number]) [address] [place] [address] 20183 Hemoglobin (Bld) [Mass/Vol] 13.9 g/dL Normal 11.7-15.5 [facility] Comment on above: Performed By: #### C SIMI, CHAVO, 3039-3, LIVR, #### [facility] ([id number]) [address] [place] [address] 88236 Lymphocytes (Bld) [#/Vol] 0.5 10*3/uL Low 1.0-3.5 [facility] Comment on above: Performed By: #### C BCA, BMP, 3039-3, LIVR, #### [facility] ([id number]) [address] [place] [address] 37825 Lymphocytes/100 WBC (Bld) 5.8 % Normal [facility] Comment on above: Performed By: #### C BCA, BMP, 0-3, LIVR, #### [facility] ([id number]) [address] [place] [address] 03535 MCH (RBC) [Entitic mass] 29.6 pg Normal 27-34 [facility] Comment on above: Performed By: #### C BCA, BMP, 3040-3, LIVR, #### [facility] ([id number]) [address] [place] [address] 30130 MCHC (RBC) [Mass/Vol] 34.0 g/dL Normal 32-36 [facility] Comment on above: Performed By: #### C BCA, BMP, 3040-3, LIVR, #### [facility] ([id number]) [address] [place] [address] 80098 MCV (RBC) [Entitic vol] 87 fL Normal 80-100 [facility] Comment on above: Performed By: #### C BCA, BMP, 3040-3, LIVR, #### [facility] ([id number]) [address] [place] [address] 38492 Monocytes (Bld) [#/Vol] 0.5 10*3/uL Normal 0-0.9 [facility] Comment on above: Performed By: #### C SIMI, BMP, 3040-3, LIVR, #### [facility] ([id number]) [address] [place] [address] 87768 Monocytes/100 WBC (Bld) 6.7 % Normal [facility] Comment on above: Performed By: #### C BCA, BMP, 3040-3, LIVR, #### [facility] ([id number]) [address] [place] [address] 86846 Neutrophils/100 WBC (Bld) 86.9 % Normal [facility] Comment on above: Performed By: #### C BCA, BMP, 3040-3, LIVR, #### [facility] ([id number]) [address] [place] [address] 38077 Platelet mean volume (Bld) [Entitic vol] 7.4 fL Normal 7-12 [facility] Comment on above: Performed By: #### C BCA, BMP, 3040-3, LIVR, 51495-4 #### [facility] ([id number]) [address] [place] [address] 23534 Platelets (Bld) [#/Vol] 298 10*3/uL Normal 150-450 [facility] Comment on above: Performed By: #### C BCA, BMP, 3040-3, LIVR, 43601-9 #### [facility] ([id number]) [address] [place] [address] 99538 RBC COUNT 4.70 X10E12/L Normal 3.80-5.20 [facility] Comment on above: Performed By: #### C BCA, BMP, 3039-3, LIVR, 45239-7 #### [facility] ([id number]) [address] [place] [address] 16502 WBC (Bld) [#/Vol] 7.8 10*3/uL Normal 4.0-11.0 [facility] Comment on above: Performed By: #### C BCA, BMP, 3040-3, LIVR, 60707-6 #### [facility] ([id number]) [address] [place] [address] ABDOMEN AND PELVIS W CONT on [...] Renner MD on 03/08/2024 12:39 PM Normal [facility] LIPASEon 03-08-2024 Lipase [Catalytic activity/Vol] 56 U/L High 17-40 [facility] Comment on above: Performed By: #### C BCA, BMP, 3040-3, LIVR, 07256-7 #### [facility] ([id number]) [address] [place] [address] 81222 LIVER PANELon 03-08-2024 Albumin [Mass/Vol] 4.5 g/dL Normal 3.2-5.3 [facility] Comment on above: Performed By: #### C BCA, BMP, 3040-3, LIVR, 09325-3 #### [facility] ([id number]) [address] [place] [address] 32572 ALP [Catalytic activity/Vol] 73 U/L Normal 39-130 [facility] Comment on above: Performed By: #### C BCA, BMP, 3040-3, LIVR, 45759-2 #### [facility] ([id number]) [address] [place] [address] 16949 ALT [Catalytic activity/Vol] 17 U/L Normal 0-31 [facility] Comment on above: Performed By: #### C BCA, BMP, 3040-3, LIVR, 84346-8 #### [facility] ([id number]) [address] [place] [address] 50821 AST [Catalytic activity/Vol] 14 U/L Normal 0-41 [facility] Comment on above: Performed By: #### C BCA, BMP, 3040-3, LIVR, 34199-6 #### [facility] ([id number]) [address] [place] [address] 84438 Bilirubin [Mass/Vol] 0.8 mg/dL Normal 0.3-1.2 [facility] Comment on above: Performed By: #### C BCA, BMP, 3040-3, LIVR, 68999-0 #### [facility] ([id number]) [address] [place] [address] 97492 Bilirubin.direct [Mass/Vol] 0.1 mg/dL Normal 0.0-0.4 [facility] Comment on above: Performed By: #### C BCA, BMP, 3040-3, LIVR, 19071-9 #### [facility] ([id number]) [address] [place] [address] 47963 Protein [Mass/Vol] 7.5 g/dL Normal 6.0-8.0 [facility] Comment on above: Performed By: #### C BCA, BMP, 3039-3, LIVR, 24791-8 #### [facility] ([id number]) [address] [place] [address] 91849 MAGNESIUMon 03-08-2024 Magnesium [Mass/Vol] 1.9 mg/dL Normal 1.8-2.6 [facility] Comment on above: Performed By: #### C BCA, BMP, 3040-3, LIVR, 97442-0 #### [facility] ([id number]) [address] [place] [address] 74852 [place] RUQon 02-23-2024 US RUQ EXAM: Limited [...] report is generated using voice recognition reporting (Trochet). On occasion AUT[employer] erroneously drops words from the report or replaces the spoken word with similar sounding words. Please call with any questions/concerns regarding this report.* Dictated and transcribed 02/23/24/dpmora This report has been electronically signed and approved by the interpreting radiologist. Electronically Signed Dell Bey II, M.D. 2024-02-23 10:07:12 Normal Not Available Urinalysis macro (dipstick) panel (U)on 02-16-2024 Bilirubin, UA Negative Negative - 4(70) +++ mg/dL [facility] Blood, UA Positive Negative - 50 Felix/mcL [facility] Clarity, UA Clear [facility] Color, UA Light Yellow [facility] Glucose, UA Negative Negative - 2000(110) ++++ mg/dL [facility] Interpretation and review of laboratory results Abnormal [facility] Ketones, UA Negative Negative - 160(16) ++++ mg/dL [facility] Leukocytes, UA Negative Negative - 500+++ Sonal/mcL [facility] Nitrite, UA Negative Negative - Positive [facility] pH, UA 5.0 5 - 9 [facility] Protein, UA Negative Negative - 2000(20) ++++ mg/dL [facility] Spec Grav, UA 1.020 1 - 1.03 [facility] Urobilinogen, UA 1.0 0.2 - 12 mg/dL [facility] BI MAMMOGRAM SCREENING TOMOS YNTHESIS BILATERALon 01-11-2024 [...] IS VERY IMPORTANT TO YOUR HEALTH. THE [employer] GUIDELINES RECOMMEND THAT WOMEN 40 [...] Valadez MD on 12/09/2023 8:24 AM Normal [facility] XR SPINE LUMBAR 2 OR 3 [...] Light MD on 12/02/2023 12:59 PM Normal [facility] XR THORACIC SPINE 3 VIEWSon 11-25-2023 [...] Acetaminophen [Mass/Vol] ug/mL Critically low 10.0-30.0 [facility] Comment on above: Performed By: #### S ALYC, ETH, ACET, CMP, TSH #### [facility] [address] [address] [address] Harris Perdomo CBC AUTO DIFFon 08-26-2022 BASO # 0.0 103/ul Normal 0.0-0.1 [facility] Comment on above: Performed By: #### C BC #### [facility] [address] [address] [address] Harris Perdomo Basophils/100 WBC (Bld) 0.4 % Normal 0.2-2.0 [facility] Comment on above: Performed By: #### C BC #### [facility] [address] [place] [address] Dr. Harris Perdomo EO # 0.0 103/ul Normal 0.0-0.7 [facility] Comment on above: Performed By: #### C BC #### [facility] [address] [place] [address] Dr. Harris Perdomo Eosinophils/100 WBC (Bld) 0.2 % Critically low 0.9-7.0 [facility] Comment on above: Performed By: #### C BC #### [facility] [address] [place] [address] Dr. Harris Perdomo Erythrocyte distribution width (RBC) [Ratio] 12.1 % Normal 11.0-15.0 [facility] Comment on above: Performed By: #### C BC #### [facility] [address] [place] [address] Dr. Harris Perdomo Hematocrit (Bld) [Volume fraction] 39.3 % Normal 36.0-48.0 [facility] Comment on above: Performed By: #### C BC #### [facility] [address] [place] [address] Dr. Harris Perdomo Hemoglobin (Bld) [Mass/Vol] 13.3 g/dL Normal 12.0-16.0 [facility] Comment on above: Performed By: #### C BC #### [facility] [address] [place] [address] Dr. Harris Perdomo IG # 0.00 10e3/ul Normal 0.00-0.03 [facility] Comment on above: Performed By: #### C BC #### [facility] [address] [place] [address] Dr. Harris Perdomo IG % 0.0 % Normal 0.0-0.5 [facility] Comment on above: Performed By: #### C BC #### [facility] [address] [place] [address] Dr. Harris Perdomo LYMPH # 0.5 103/ul Critically low 1.2-3.8 [facility] Comment on above: Performed By: #### C BC #### [facility] [address] [address] [address] Harris Perdomo Lymphocytes/100 WBC (Bld) 10.2 % Critically low 20.5-60.0 [facility] Comment on above: Performed By: #### C BC #### [facility] [address] [place] [address] Dr. Harris Perdomo MANUAL DIFF REQ NO Normal [facility] Comment on above: Performed By: #### C BC #### [facility] [address] [address] [address] Harris Perdomo MCH (RBC) [Entitic mass] 30.6 pg Normal 26.7-34.0 [facility] Comment on above: Performed By: #### C BC #### [facility] [address] [place] [address] Dr. Harris Perdomo MCHC (RBC) [Mass/Vol] 33.8 g/dL Normal 29.9-35.2 [facility] Comment on above: Performed By: #### C BC #### [facility] [address] [place] [address] Dr. Harris Perdomo MCV (RBC) [Entitic vol] 90.6 fL Normal 81.0-99.0 [facility] Comment on above: Performed By: #### C BC #### [facility] [address] [place] [address] Dr. Harris Perdomo MONO # 0.3 103/ul Normal 0.3-0.8 [facility] Comment on above: Performed By: #### C BC #### [facility] [address] [place] [address] Dr. Harris Perdomo Monocytes/100 WBC (Bld) 6.2 % Normal 1.7-12.0 [facility] Comment on above: Performed By: #### C BC #### [facility] [address] [place] [address] Dr. Harris Perdomo NEUT # 4.3 103/ul Normal 1.4-6.5 [facility] Comment on above: Performed By: #### C BC #### [facility] [address] [place] [address] Dr. Harris Perdomo Neutrophils/100 WBC (Bld) 83.0 % Critically high 43.0-75.0 [facility] Comment on above: Performed By: #### C BC #### [facility] [address] [place] [address] Dr. Harris Perdomo Platelet mean volume (Bld) [Entitic vol] 8.3 fL Critically low 9.5-13.5 [facility] Comment on above: Performed By: #### C BC #### [facility] [address] [place] [address] Dr. Harris Perdomo PLT 251 103/ul Normal 150-450 [facility] Comment on above: Performed By: #### C BC #### [facility] [address] [place] [address] Dr. Harris Perdomo RBC 4.34 106/ul Normal 4.20-5.40 [facility] Comment on above: Performed By: #### C BC #### [facility] [address] [place] [address] Dr. Harris Perdomo WBC 5.2 103/ul Normal 4.0-11.0 [facility] Comment on above: Performed By: #### C BC #### [facility] [address] [place] [address] Dr. Harris Perdomo [facility]on 08-15 SARS-CoV-2 (COVID-19) RNA JOSE G+probe Ql (Unsp spec) Not detected Normal NOT DETECTED [facility] Comment on above: Result Comment: When diagnostic [...] for this test is supported by the [place] of Health and Human Service's declaration that [...] used). Performed By: #### C VDTBH #### [facility] [address] [place] [address] Dr. Harris Perdomo DRUG SCREEN RAPID (URINE)on 08-26-2022 AMP Negative Normal NEGATIVE [facility] Comment on above: Performed By: #### E RUR, DRUGRPD #### [facility] [address] [place] [address] Dr. Harris Perdomo BAR Negative Normal NEGATIVE [facility] Comment on above: Performed By: #### E RUR, DRUGRPD #### [facility] [address] [place] [address] Dr. Harris Perdomo BUP Negative Normal NEGATIVE [facility] Comment on above: Performed By: #### E RUR, DRUGRPD #### [facility] [address] [place] [address] Dr. Harris Perdomo BZO Positive Abnormal NEGATIVE [facility] Comment on above: Performed By: #### E RUR, DRUGRPD #### [facility] [address] [place] [address] Dr. Harris Perdomo LAURA Negative Normal NEGATIVE [facility] Comment on above: Performed By: #### E RUR, DRUGRPD #### [facility] [address] [place] [address] Dr. Harris Perdomo CUT-OFFS SEE BELOW Normal [facility] Comment on above: Result Comment: AMP (Amphetamine): [...] Performed By: #### E RUR, DRUGRPD #### [facility] [address] [place] [address] Dr. Harris Perdomo DRUG CUT HEADER DRUG CLASS TEST SYST EM CUT-OFF CONCENTRATIONS ARE FOLLOWS: Normal [facility] Comment on above: Performed By: #### E RUR, DRUGRPD #### [facility] [address] [place] [address] Dr. Harris Perdomo mAMP Negative Normal NEGATIVE [facility] Comment on above: Performed By: #### E RUR, DRUGRPD #### [facility] [address] [place] [address] Dr. Harris Perdomo MTD Negative Normal NEGATIVE [facility] Comment on above: Performed By: #### E RUR, DRUGRPD #### [facility] [address] [place] [address] Dr. Harris Perdomo OPI Negative Normal NEGATIVE [facility] Comment on above: Performed By: #### E RUR, DRUGRPD #### [facility] [address] [place] [address] Dr. Harris Perdomo OXY Negative Normal NEGATIVE [facility] Comment on above: Performed By: #### E RUR, DRUGRPD #### [facility] [address] [place] [address] Dr. Harris Perdomo PCP Negative Normal NEGATIVE [facility] Comment on above: Performed By: #### E RUR, DRUGRPD #### [facility] [address] [place] [address] Dr. Harris Perdomo PPX Negative Normal NEGATIVE [facility] Comment on above: Performed By: #### E RUR, DRUGRPD #### [facility] [address] [place] [address] Dr. Harris Perdomo TCA Negative Normal NEGATIVE [facility] Comment on above: Performed By: #### E RUR, DRUGRPD #### [facility] [address] [place] [address] Dr. Harris Perdomo THC Negative Normal NEGATIVE [facility] Comment on above: Performed By: #### E RUR, DRUGRPD #### [facility] [address] [place] [address] Dr. Harris Perdomo ER URINE PROFILEon 3 Bilirubin Ql (U) Negative Normal NEGATIVE [facility] Comment on above: Performed By: #### E RUR, DRUGRPD #### [facility] [address] [place] [address] Dr. Harris Perdomo Clarity (U) CLEAR Normal CLEAR [facility] Comment on above: Performed By: #### E RUR, DRUGRPD #### [facility] [address] [place] [address] Dr. Harris Perdomo Color (U) LT. YELLOW Normal YELLOW [facility] Comment on above: Performed By: #### E RUR, DRUGRPD #### [facility] [address] [place] [address] Dr. Harris Perdomo ERUAHMora A micrscopic examina tion will be performed if indicated. Normal [facility] Comment on above: Performed By: #### E RUR, DRUGRPD #### [facility] [address] [place] [address] Dr. Harris Perdomo Glucose Ql (U) Negative Normal NEGATIVE [facility] Comment on above: Performed By: #### E RUR, DRUGRPD #### [facility] [address] [place] [address] Dr. Harris Perdomo Hemoglobin Ql (U) Negative Normal NEGATIVE [facility] Comment on above: Performed By: #### E RUR, DRUGRPD #### [facility] [address] [place] [address] Dr. Harris Perdomo Ketones Ql (U) Negative Normal NEGATIVE [facility] Comment on above: Performed By: #### E RUR, DRUGRPD #### [facility] [address] [place] [address] Dr. Harris Perdomo LEUKOCYTES Negative Normal NEGATIVE [facility] Comment on above: Performed By: #### E RUR, DRUGRPD #### [facility] [address] [place] [address] Dr. Harris Perdomo Nitrite Ql (U) Negative Normal NEGATIVE [facility] Comment on above: Performed By: #### Yola MERINO DRUGRPD #### [facility] [address] [place] [address] Dr. Harris Perdomo pH (U) 6.5 [pH] Normal 5-9 [facility] Comment on above: Performed By: #### Yola MERINO DRUGRPD #### [facility] [address] [place] [address] Dr. Harris Perdomo SPEC GRAVITY <=1.005 Abnormal 1.005-<=1.02 5 [facility] Comment on above: Performed By: #### Yola MERINO DRUGRPD #### [facility] [address] [place] [address] Dr. Harris Perdomo UA PROTEIN Negative Normal NEGATIVE/ TRACE [facility] Comment on above: Performed By: #### Yola MERINO DRUGRPD #### [facility] [address] [place] [address] Dr. Harris Perdomo UR MICRO IND NOT INDICATED Normal [facility] Comment on above: Performed By: #### Yola MERINO DRUGRPD #### [facility] [address] [place] [address] Dr. Harris Perdomo Urobilinogen Qn (U) 0.2 {Baylee'U}/dL Normal 0.2 - 1. 0 [facility] Comment on above: Performed By: #### Yola MERINO DRUGRPD #### [facility] [address] [place] [address] Dr. Harris Perdomo ETHANOL (BLD ALC)on 08-27-19 23 ALC NOTE NOTE: 80 mg/dl is th e legal limit for a blood alcohol level Normal [facility] Comment on above: Performed By: #### S ALYC, ETH, ACET, CMP, TSH #### [facility] [address] [place] [address] Dr. Harris Perdomo Ethanol [Mass/Vol] mg/dL Normal [facility] Comment on above: Performed By: #### S ALYC, ETH, ACET, CMP, TSH #### [facility] [address] [place] [address] Dr. Harris Perdomo PROF 14(COMP METB)on 023 Albumin [Mass/Vol] 3.8 g/dL Normal 3.4-5.0 [facility] Comment on above: Performed By: #### S ALYC, ETH, ACET, CMP, TSH #### [facility] [address] [place] [address] Dr. Harris Perdomo Albumin/Globulin [Mass ratio] 1.2 {ratio} Normal [facility] Comment on above: Performed By: #### S ALYC, ETH, ACET, CMP, TSH #### [facility] [address] [place] [address] Dr. Harris Perdomo ALP [Catalytic activity/Vol] 103 U/L Normal 46-116 [facility] Comment on above: Performed By: #### S ALYC, ETH, ACET, CMP, TSH #### [facility] [address] [place] [address] Dr. Harris Perdomo ALT [Catalytic activity/Vol] 6 U/L Critically low 14-59 [facility] Comment on above: Performed By: #### S ALYC, ETH, ACET, CMP, TSH #### [facility] [address] [place] [address] Dr. Harris Perdomo Anion gap [Moles/Vol] 12.3 mmol/L Normal [facility] Comment on above: Performed By: #### S ALYC, ETH, ACET, CMP, TSH #### [facility] [address] [place] [address] Dr. Harris Perdomo AST [Catalytic activity/Vol] 14 U/L Critically low 15-37 [facility] Comment on above: Performed By: #### S ALYC, ETH, ACET, CMP, TSH #### [facility] [address] [place] [address] Dr. Harris Perdomo Bilirubin [Mass/Vol] 0.4 mg/dL Normal 0.2-1.0 [facility] Comment on above: Performed By: #### S ALYC, ETH, ACET, CMP, TSH #### [facility] [address] [address] [address] Harris Perdomo Calcium [Mass/Vol] 9.1 mg/dL Normal 8.5-10.1 [facility] Comment on above: Performed By: #### S ALYC, ETH, ACET, CMP, TSH #### [facility] [address] [place] [address] Dr. Harris Perdomo Chloride [Moles/Vol] 106 mmol/L Normal 98-107 [facility] Comment on above: Performed By: #### S ALYC, ETH, ACET, CMP, TSH #### [facility] [address] [place] [address] Dr. Harris Perdomo CO2 [Moles/Vol] 28.7 mmol/L Normal 21.0-32.0 [facility] Comment on above: Performed By: #### S ALYC, ETH, ACET, CMP, TSH #### [facility] [address] [place] [address] Dr. Harris Perdomo Creatinine [Mass/Vol] 0.65 mg/dL Normal 0.55-1.02 [facility] Comment on above: Performed By: #### S ALYC, ETH, ACET, CMP, TSH #### [facility] [address] [place] [address] Dr. Harris Perdomo EGFR-AF THAI >60 Normal >=60 [facility] Comment on above: Performed By: #### S ALYC, ETH, ACET, CMP, TSH #### [facility] [address] [place] [address] Dr. Harris Perdomo EGFR-NON AF THAI >60 Normal >=60 [facility] Comment on above: Performed By: #### S ALYC, ETH, ACET, CMP, TSH #### [facility] [address] [place] [address] Dr. Harris Perdomo Globulin (S) [Mass/Vol] 3.2 g/dL Normal [facility] Comment on above: Performed By: #### S ALYC, ETH, ACET, CMP, TSH #### [facility] [address] [place] [address] Dr. Harris Perdomo Glucose [Mass/Vol] 99 mg/dL Normal 74-[address] [facility] Comment on above: Performed By: #### S ALYC, ETH, ACET, CMP, TSH #### [facility] [address] [place] [address] Dr. Harris Perdomo Potassium [Moles/Vol] 4.0 mmol/L Normal 3.5-5.1 [facility] Comment on above: Performed By: #### S ALYC, ETH, ACET, CMP, TSH #### [facility] [address] [address] [address] Harris Perdomo Protein [Mass/Vol] 7.0 g/dL Normal 6.4-8.[address] [facility] Comment on above: Performed By: #### S ALYC, ETH, ACET, CMP, TSH #### [facility] [address] [place] [address] Dr. Harris Perdomo Sodium [Moles/Vol] 143 mmol/L Normal 136-[address] [facility] Comment on above: Performed By: #### S ALYC, ETH, ACET, CMP, TSH #### [facility] [address] [address] [address] Harris Perdomo Urea nitrogen [Mass/Vol] 20.0 mg/dL Critically high 7.0-18.0 [facility] Comment on above: Performed By: #### S ALYC, ETH, ACET, CMP, TSH #### [facility] [address] [address] [address] Harris Perdomo Urea nitrogen/Creatinine [Mass ratio] 30.8 mg/mg Normal [facility] Comment on above: Performed By: #### S ALYC, ETH, ACET, CMP, TSH #### [facility] [address] [address] [address] Harris Perdomo SALICYLATEon 08-26-2022 SALICYLATE <2.8 Normal <=19.9 [facility] Comment on above: Performed By: #### S ALYC, ETH, ACET, CMP, TSH #### [facility] [address] [place] [address] Dr. Harris Perdomo TSHon 08-26-2022 TSH 1.224 uIU/mL Normal 0.358-3.740 [facility] Comment on above: Performed By: #### S ALYC, ETH, ACET, CMP, TSH #### [facility] [id number] Harris Perdomo XR Knee 3 Views Lefton 02-09 XR Knee 3 Views Left FINDINGS: Mild bilateral patellofemoral joint space loss. No cortical or subchondral fracture. No significant osteophyte formation. Small left sided patellofemoral effusion. IMPRESSION: 1. 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 Report reported and signed by Kieran Caputo on 02/09/2022 1430 Normal [facility] Tele Grout Sewer Line Repairer XR Humerus Righton XR Humerus Right HISTORY: [...] by Kieran Caputo on 09/11/2021 1054 Normal [facility] Specialist Lipid Panelon 05-14-2021 Cholesterol [Mass/Vol] 199 mg/dL Normal 125-200 [facility] Comment on above: Result Comment: Low risk < 200mg/dL Borderline risk 201-239 mg/dl High risk > or equal to 240 Performed By: #### L IPD #### [facility] [address] [place], [place] [id number] Cholesterol in HDL [Mass/Vol] 51 mg/dL Normal >40 [facility] Comment on above: Result Comment: High Cardiovascular Risk HDL <40 mg/dL Low Cardiovascular Risk HDL > or equal to 60 mg/dl Performed By: #### L IPD #### [facility] [address] [id number] Cholesterol in LDL [Mass/Vol] 112 mg/dL Normal [facility] Comment on above: Result Comment: LDL ATP III CLASSIFICATION LDL less than 100 mg/dl Optimal LDL 100-129 mg/dl Near or above optimal LDL 130-159 Borderline high LDL 160-189 High LDL greater than 189 mg/dl Very High Performed By: #### L IPD #### [facility] [address] [place], [place] [id number] Cholesterol in VLDL [Mass/Vol] 36 mg/dL Normal [facility] Comment on above: Performed By: #### L IPD #### [facility] [address] [place], [place] [id number] Cholesterol.total/Ch olesterol in HDL [Mass ratio] 4 {ratio} Normal [facility] Comment on above: Performed By: #### L IPD #### [facility] [address] [place], [place] [id number] Triglyceride [Mass/Vol] 178 mg/dL High 30-150 [facility] Comment on above: Result Comment: TRIG ATPIII CLASSIFICATIONS TRIG less than 150 mg/dl Normal TRIG 150-199 mg/dl Borderline High TRIG 200-500 mg/dl High TRIG greather than 500 mg/dl Very High Performed By: #### L IPD #### [facility] [address] [place], [place] [id number] Q - QUESTASSURED(TM) 25-OH V IT D(D2D3)LC/MS/MSon 05-14-2021 VITAMIN D, 25-OH, D2 <4 Normal [facility] Comment on above: Order Comment: [facility] Testing performed at: [facility], [facility], [address], [place], [place], , Varnish Mixer: Andrey Lott M.D.,PhD [facility] Collection Date/Time: [facility] Results Received Date/Time: [facility] Reported Date/Time: Result Comment: This test was developed and its analytical performance characteristics have been determined by [employer] [place], [place]. It has not been cleared or approved by the U.S. Food and Drug Administration. This assay has been validated pursuant to the CLIA regulations and is used for clinical purposes. Performed By: #### [id number] #### [facility] [address] [place] [address] VITAMIN D, 25-OH, D3 51 ng/mL Normal [facility] Comment on above: Order Comment: [facility] performed at: [employer], [place], [address] [address], [place], [place], , Varnish Mixer: Andrey Lott M.D.,PhD [facility] Date/Time: [id number] [facility] Results Received Date/Time: [id number] [facility] Reported Date/Time: Result Comment: This test was developed and its analytical performance characteristics have been determined by [employer] [place], [place]. It has not been cleared or approved by the U.S. Food and Drug Administration. This assay has been validated pursuant to the CLIA regulations and is used for clinical purposes. Performed By: #### [id number] #### [facility] [address] [place] [address] VITAMIN D, 25-OH, TOTAL 51 ng/mL Normal 30-100 [facility] Comment on above: Order Comment: [facility] Testing performed at: [employer], [address] [address], [place], [place], , Varnish Mixer: Andrey Lott M.D.,PhD [facility] Date/Time: [id number] [facility] Results Received Date/Time: [id number] [facility] Reported Date/Time: Result Comment: Cherelle min [...] there is any concern. Nesha MF, Andrea NC, Megan CASTILLO, et al. Evaluation, treatment and prevention of vitamin D deficiency: an Endocrine Society clinical practice guideline. J Clin Endocrinol Metab. 2011;96(7):1911-30. For additional information, please refer to http://education.Audyssey/faq/TVL120 (This link is being provided for informational/ educational purposes only.) Performed By: #### [id number] #### [facility] [address] [place] [address] SCREENING MAMMOGRAM W/MAKENNA, BILATERAL*on 05-14-2021 SCREENING MAMMOGRAM [...] VERY IMPORTANT TO YOUR HEALTH. THE CURRENT [employer] GUIDELINES RECOMMENDS ANNUAL MAMMOGRAPHY BEGINNING AT AGE 40. THIS FACILITY USES A REMINDER SYSTEM TO ENSURE ALL PATIENTS RECEIVE REMINDER NOTIFICATIONS AT THE APPROPRIATE TIME BASED ON THE RECOMMENDATIONS OF THIS EXAM. Report reported and signed by Kieran Caputo on 05/14/2021 1337 Normal [facility] Tele Grout Sewer Line Repairer CNOVSPon 02-04-2017 CNOVSP Visit (SP) Office ([facility]) SARAH GREGG ([id number]) 1955 FDate Time Provider Department02/04/17 2:00 PM RICARDO CARRASCO HEMBRYANNA During your visit today, we recorded the following information about you: Temperature Pulse Respiration Blood pressure 98 degrees 85/minute 18/minute 115/69 Weight Height 44 kg 1.549 mMINDY LUTHER PANDA PA-C 02/04/2017 1:50 PM SignedPatient: Mirian FlanneryPrashantOB: 1955Race: Katya Complaint:Endometrial CancerHPI: Mirian is here for follow up. She had endometrial cancer diagnosed [id number] and treated with chemotherapy and radiation. She [...] has had 2 CTs to monitorthis at [facility] and she states it has been stable.Current [...] tremor to left handImaging Studies: CXR at [facility] 01/19/2017 was negativeASSESSMENT/PLAN: 1. 182.0 Endometrial cancerShe has no evidence of disease recurrence. She is now 12 years out from hercancer and she will follow up with her PCP for yearly chest x-rays. SALLY FONSECA-CReferring Provider: RICARDO CARRASCO [[id number]]Allergies As of Date: 02/04/2017(No Known Allergies)Date Reviewed: [...] history of malignant neoplasm of femal*INVALID FOR* LARRY CAR OPERATOR demyelination (HCC) [G37.9] INVALID FOR* Neuropathy due to chemotherapeutic drug (HCC) [*INVALID FOR* Thyroid mass [E07.9] INVALID FOR*Encounter Status:Closed by MIS PANDA on 02/04/17 Normal [facility] PROGRESSon 02-04-2017 PROGRESS HNO ID: [id number]: Mis Coloradoervice: (none)Author Type: Physician AssistantType: Progress [...] tremor to left handImaging Studies: CXR at [facility] 01/19/2017 was negativeASSESSMENT/PLAN: 1. 182.0 Endometrial cancerShe has no evidence of disease recurrence. She is now 12 years out fromher cancer and she will follow up with her PCP for yearly chest x-rays. MIS PANDA PA-C Normal [facility] Remote CBCDIF (for [facility] use o nly)on 02-04-2017 Abs Baso 0.01 k/uL Normal 0.00-0.10 [facility] Abs Caswell 0.27 k/uL Normal 0.00-0.86 [facility] Abs Neut 2.36 k/uL Normal 1.45-7.50 [facility] Basophils/100 WBC Auto (Bld) 0.3 % Normal [facility] Eosinophils 0.03 10*3/uL Normal 0.00-0.45 [facility] Eosinophils/100 leukocytes 0.9 % Normal [facility] Erythrocyte distribution width Auto Ratio (RBC) 12.8 % Normal 11.5-15.0 [facility] Erythrocytes (RBC) 4.14 10*6/uL Normal 3.90-5.20 [facility] Hematocrit (HCT) 37.9 % Normal 36.0-46.0 [facility] Hemoglobin mass conc (Bld) 12.6 g/dL Normal 11.5-15.5 [facility] Lymphocytes 0.76 10*3/uL Low 1.00-4.00 [facility] Lymphocytes/100 leukocytes 22.2 % Normal [facility] MCH 30.4 pG Normal 26.0-34.0 [facility] MCHC mass conc (RBC) 33.2 g/dL Normal 30.5-36.[facility] MCV 91.5 fL Normal 80.0-100.0 [facility] Monocytes/100 leukocytes 7.9 % Normal [facility] Neutrophils/100 WBC Auto (Bld) 68.7 % Normal [facility] Platelet mean volume (PMV) 8.7 fL Low 9.0-12.7 [facility] Platelets 198 10*3/uL Normal 150-400 [facility] WBC (Leukocytes) 3.43 10*3/uL Low 3.70-11.00 [facility] Vital Signs Date Time Vital Sign Value Performing Clinician Carrie mcdaniel 09-12-2024 14:13-0400 Body height 154.9 cm Domingasharoner Scoville DO Work Phone: [facility] 09-12-2024 14:13-0400 Body mass index (BMI) [Ratio] 16.06 kg/m2 Christopher Scoville DO Work Phone: [facility] 09-12-2024 14:13-0400 Body weight 38.56 kg Christopher Benjamin DO Work Phone: [facility] 09-12-2024 14:13-0400 Diastolic blood pressure 70 mm[Hg] Christopher Benjamin DO Work Phone: [facility] 09-12-2024 14:13-0400 Heart rate 76 /min Christopher Benjamin DO Work Phone: [facility] 09-12-2024 14:13-0400 Systolic blood pressure 112 mm[Hg] Christopher Benjamin DO Work Phone: [facility] 08-21-2024 11:12-0400 Body height 154.9 cm Shea Vogel MD Work Phone: [facility] 08-21-2024 11:12-0400 Body mass index (BMI) [Ratio] 16.1 kg/m2 Shea Vogel MD Work Phone: [facility] 08-21-2024 11:12-0400 Body weight 38.65 kg Shea Vogel MD Work Phone: [facility] 08-21-2024 11:12-0400 Diastolic blood pressure 58 mm[Hg] Shea Vogel MD Work Phone: [facility] 08-21-2024 11:12-0400 Heart rate 102 /min Shea Vogel MD Work Phone: [facility] 08-21-2024 11:12-0400 Respiratory rate 16 /min Shea Vogel MD Work Phone: [facility] 08-21-2024 11:12-0400 SaO2% (BldA) [Mass fraction] 98 % Shea Vogel MD Work Phone: [facility] 08-21-2024 11:12-0400 Systolic blood pressure 100 mm[Hg] Shea Vogel MD Work Phone: [facility] 08-08-2024 13:06-0400 Body mass index (BMI) [Ratio] 16.06 kg/m2 Sue Rosas GASOLINE TRUCK CRANE OPERATOR Work Phone: [facility] 08-08-2024 13:06-0400 Body weight 38.56 kg Sue Rosas GASOLINE TRUCK CRANE OPERATOR Work Phone: [facility] 08-08-2024 13:06-0400 Diastolic blood pressure 76 mm[Hg] Sue Rosas GASOLINE TRUCK CRANE OPERATOR Work Phone: [facility] 08-08-2024 13:06-0400 Heart rate 105 /min Sue Rosas GASOLINE TRUCK CRANE OPERATOR Work Phone: [facility] 08-08-2024 13:06-0400 SaO2% (BldA) [Mass fraction] 97 % Sue Rosas GASOLINE TRUCK CRANE OPERATOR Work Phone: [facility] 08-08-2024 13:06-0400 Systolic blood pressure 128 mm[Hg] Sue Rosas GASOLINE TRUCK CRANE OPERATOR Work Phone: [facility] 07-17-2024 14:23-0500 Body mass index (BMI) [Ratio] 16.82 kg/m2 Shashi ARIZMENDILARRY CAR OPERATOR Work Phone: [facility] 07-17-2024 14:23-0500 Body weight 40.37 kg Shashi Michellesehumphrey UNIX DEVELOPER-LARRY CAR OPERATOR Work Phone: [facility] 07-17-2024 14:23-0500 Diastolic blood pressure 82 mm[Hg] Shashi Talavera-Elmosek UNIX DEVELOPER-LARRY CAR OPERATOR Work Phone: [facility] 07-17-2024 14:23-0500 Heart rate 122 /min Shashi Talavera-Elmosek UNIX DEVELOPER-LARRY CAR OPERATOR Work Phone: [facility] 07-17-2024 14:23-0500 Systolic blood pressure 138 mm[Hg] Shashi Talavera-Elmosehumphrey UNIX DEVELOPER-LARRY CAR OPERATOR Work Phone: [facility] 07-10-2024 15:15-0500 Body mass index (BMI) [Ratio] 16.63 kg/m2 Christopher Benjamin DO Work Phone: [facility] 07-10-2024 15:15-0500 Body weight 39.92 kg Christopher Benjamin DO Work Phone: [facility] 07-10-2024 15:15-0500 Diastolic blood pressure 74 mm[Hg] Christopher Benjamin DO Work Phone: [facility] 07-10-2024 15:15-0500 Heart rate 119 /min Christopher Benjamin DO Work Phone: [facility] 07-10-2024 15:15-0500 SaO2% (BldA) [Mass fraction] 96 % Christopher Benjamin DO Work Phone: [facility] 07-10-2024 15:15-0500 Systolic blood pressure 118 mm[Hg] Christopher Benjamin DO Work Phone: [facility] 05-26-2024 10:54-0500 Body height 154.9 cm Shea Vogel MD Work Phone: [facility] 05-26-2024 10:54-0500 Body mass index (BMI) [Ratio] 16.59 kg/m2 Shea Vogel MD Work Phone: [facility] 05-26-2024 10:54-0500 Body weight 39.83 kg Shea Vogel MD Work Phone: [facility] 05-26-2024 10:54-0500 Diastolic blood pressure 70 mm[Hg] Shea Vogel MD Work Phone: [facility] 05-26-2024 10:54-0500 Heart rate 112 /min Shea Vogel MD Work Phone: [facility] 05-26-2024 10:54-0500 Respiratory rate 16 /min Shea Vogel MD Work Phone: [facility] 05-26-2024 10:54-0500 SaO2% (BldA) [Mass fraction] 98 % Shea Vogel MD Work Phone: [facility] 05-26-2024 10:54-0500 Systolic blood pressure 116 mm[Hg] Shea Vogel MD Work Phone: [facility] 05-18-2024 13:58-0500 Body mass index (BMI) [Ratio] 15.68 kg/m2 Shashi Sadaf-Nossek UNIX DEVELOPER-LARRY CAR OPERATOR Work Phone: [facility] 05-18-2024 13:58-0500 Body weight 37.65 kg Shashi Sadaf-Nossek UNIX DEVELOPER-LARRY CAR OPERATOR Work Phone: [facility] 05-18-2024 13:58-0500 Diastolic blood pressure 82 mm[Hg] Shashi Sadaf-Nossek UNIX DEVELOPER-LARRY CAR OPERATOR Work Phone: [facility] 05-18-2024 13:58-0500 Heart rate 99 /min Shashi Sadaf-Nossek UNIX DEVELOPER-LARRY CAR OPERATOR Work Phone: [facility] 05-18-2024 13:58-0500 SaO2% (BldA) [Mass fraction] 99 % Shashi Sadaf-Nossek UNIX DEVELOPER-LARRY CAR OPERATOR Work Phone: [facility] 05-18-2024 13:58-0500 Systolic blood pressure 120 mm[Hg] Shashi Sadaf-Nossek UNIX DEVELOPER-LARRY CAR OPERATOR Work Phone: [facility] 04-03-2024 13:46-0500 Body mass index (BMI) [Ratio] 15.15 kg/m2 Shashi Sadaf-Nossek UNIX DEVELOPER-LARRY CAR OPERATOR Work Phone: [facility] 04-03-2024 13:46-0500 Body weight 36.38 kg Shashi Sadaf-Nossek UNIX DEVELOPER-LARRY CAR OPERATOR Work Phone: [facility] 04-03-2024 13:46-0500 Diastolic blood pressure 82 mm[Hg] Shashi Sadaf-Nossek UNIX DEVELOPER-LARRY CAR OPERATOR Work Phone: [facility] 04-03-2024 13:46-0500 Heart rate 110 /min Shashi Sadaf-Nossek UNIX DEVELOPER-LARRY CAR OPERATOR Work Phone: [facility] 04-03-2024 13:46-0500 Systolic blood pressure 118 mm[Hg] Shashi Sadaf-Nossek UNIX DEVELOPER-LARRY CAR OPERATOR Work Phone: [facility] 03-08-2024 08:46-0400 Body height 154.9 cm Shea Vogel MD Work Phone: [facility] 03-08-2024 08:46-0400 Body mass index (BMI) [Ratio] 14.06 kg/m2 Shea Vogel MD Work Phone: [facility] 03-08-2024 08:46-0400 Body weight 33.75 kg Shea Vogel MD Work Phone: [facility] 03-08-2024 08:46-0400 Diastolic blood pressure 62 mm[Hg] Shea Vogel MD Work Phone: [facility] 03-08-2024 08:46-0400 Heart rate 103 /min Shea Vogel MD Work Phone: [facility] 03-08-2024 08:46-0400 Respiratory rate 20 /min Shea Vogel MD Work Phone: [facility] 03-08-2024 08:46-0400 SaO2% (BldA) [Mass fraction] 99 % Shea Vogel MD Work Phone: [facility] 03-08-2024 08:46-0400 Systolic blood pressure 102 mm[Hg] Shea Vogel MD Work Phone: [facility] 02-23-2024 09:10-0400 Body height 154.9 cm Shea Vogel MD Work Phone: [facility] 02-23-2024 09:10-0400 Body mass index (BMI) [Ratio] 15.3 kg/m2 Shea Vogel MD Work Phone: [facility] 02-23-2024 09:10-0400 Body weight 36.74 kg Shea Vogel MD Work Phone: [facility] 02-23-2024 09:10-0400 Diastolic blood pressure 72 mm[Hg] Shea Vogel MD Work Phone: [facility] 02-23-2024 09:10-0400 Heart rate 62 /min Shea Vogel MD Work Phone: [facility] 02-23-2024 09:10-0400 Respiratory rate 18 /min Shea Vogel MD Work Phone: [facility] 02-23-2024 09:10-0400 SaO2% (BldA) [Mass fraction] 97 % Shea Vogel MD Work Phone: [facility] 02-23-2024 09:10-0400 Systolic blood pressure 116 mm[Hg] Shea Vogel MD Work Phone: [facility] 02-16-2024 11:15-0400 Body mass index (BMI) [Ratio] 15.57 kg/m2 Shea Vogel MD Work Phone: [facility] 02-16-2024 11:15-0400 Body weight 37.38 kg Shea Vogel MD Work Phone: [facility] 02-16-2024 11:15-0400 Diastolic blood pressure 72 mm[Hg] Shea Vogel MD Work Phone: [facility] 02-16-2024 11:15-0400 Heart rate 81 /min Shea Vogel MD Work Phone: [facility] 02-16-2024 11:15-0400 Respiratory rate 20 /min Shea Vogel MD Work Phone: [facility] 02-16-2024 11:15-0400 SaO2% (BldA) [Mass fraction] 99 % Shea Vogel MD Work Phone: [facility] 02-16-2024 11:15-0400 Systolic blood pressure 126 mm[Hg] Shea Vogel MD Work Phone: [facility] 02-01-2024 13:20-0400 Body height 154.9 cm Shea Vogel MD Work Phone: [facility] 02-01-2024 13:20-0400 Body mass index (BMI) [Ratio] 16.1 kg/m2 Shea Vogel MD Work Phone: [facility] 02-01-2024 13:20-0400 Body weight 38.65 kg Shea Vogel MD Work Phone: [facility] 02-01-2024 13:20-0400 Diastolic blood pressure 64 mm[Hg] Shea Vogel MD Work Phone: [facility] 02-01-2024 13:20-0400 Heart rate 86 /min Shea Vogel MD Work Phone: [facility] 02-01-2024 13:20-0400 Respiratory rate 20 /min Shea Vogel MD Work Phone: [facility] 02-01-2024 13:20-0400 SaO2% (BldA) [Mass fraction] 99 % Shea Vogel MD Work Phone: [facility] 02-01-2024 13:20-0400 Systolic blood pressure 112 mm[Hg] Shea Vogel MD Work Phone: [facility] 01-24-2024 14:56-0400 Body mass index (BMI) [Ratio] 16.25 kg/m2 Shashi Servin UNIX DEVELOPER-LARRY CAR OPERATOR Work Phone: [facility] 01-24-2024 14:56-0400 Body weight 39.01 kg Shashi Talavera-Elmosek UNIX DEVELOPER-LARRY CAR OPERATOR Work Phone: [facility] 01-24-2024 14:56-0400 Diastolic blood pressure 76 mm[Hg] Shashi Talavera-Elmosek UNIX DEVELOPER-LARRY CAR OPERATOR Work Phone: [facility] 01-24-2024 14:56-0400 Heart rate 88 /min Shashi Talavera-Elmosek UNIX DEVELOPER-LARRY CAR OPERATOR Work Phone: [facility] 01-24-2024 14:56-0400 Systolic blood pressure 116 mm[Hg] Shashi Talavera-Elmosehumphrey UNIX DEVELOPER-LARRY CAR OPERATOR Work Phone: [facility] 07-01-2023 13:36-0500 Body height 154.9 cm Saira Weston GASOLINE TRUCK CRANE OPERATOR Work Phone: [facility] 07-01-2023 13:36-0500 Body mass index (BMI) [Ratio] 21.92 kg/m2 Saira Weston GASOLINE TRUCK CRANE OPERATOR Work Phone: [facility] 07-01-2023 13:36-0500 Body weight 52.62 kg Saira Weston GASOLINE TRUCK CRANE OPERATOR Work Phone: [facility] 07-01-2023 13:36-0500 Diastolic blood pressure 82 mm[Hg] Sairacatracho Weston GASOLINE TRUCK CRANE OPERATOR Work Phone: [facility] 07-01-2023 13:36-0500 Heart rate 78 /min Saira Weston GASOLINE TRUCK CRANE OPERATOR Work Phone: [facility] 07-01-2023 13:36-0500 Respiratory rate 18 /min Saira Weston GASOLINE TRUCK CRANE OPERATOR Work Phone: [facility] 07-01-2023 13:36-0500 SaO2% (BldA) [Mass fraction] 98 % Sairacatracho Weston GASOLINE TRUCK CRANE OPERATOR Work Phone: [facility] 07-01-2023 13:36-0500 Systolic blood pressure 128 mm[Hg] Saira Weston GASOLINE TRUCK CRANE OPERATOR Work Phone: [facility] Encounters Encounter Date Encounter Type Care Provider Facility Start: 09-12-2024 End: 09-12-2024 Office outpatient visit 25 minutes Master Alexander DO Work Phone: [facility] Comment on above: Parkinson's disease without dyskinesia, unspecified whether manifestations fluctuate (CMS/HCC) (Primary Dx) Start: 09-12-2024 End: 09-12-2024 ambulatory MASTER ALEXANDER Not Available Start: 09-12-2024 End: 09-12-2024 Bamboo flowsheet Master Alexander DO Work Phone: [facility] Start: 09-12-2024 End: 09-12-2024 Bamboo flowsheet Master Benjamin DO Work Phone: [facility] Start: 08-22-2024 End: 08-28-2024 Telephone encounter Bernadette DA SILVA Comment on above: med questions Start: 08-21-2024 End: 08-21-2024 Bamboo flowsheet Shea Vogel MD Work Phone: [facility] Start: 08-21-2024 End: 08-21-2024 Bamboo flowsheet Shea Vogel MD Work Phone: [facility] Start: 08-21-2024 End: 08-21-2024 Office outpatient visit 25 minutes Shea Vogel MD Work Phone: [facility] Comment on above: Weight loss (Primary Dx); Recurrent major depressive disorder, in partial remission (HCC) (CMS/HCC); Age-related osteoporosis with current pathological fracture, initial encounter (CMS/HCC); Current mild episode of major depressive disorder without prior episode (HCC) (CMS/HCC); Parkinson's disease with fluctuating manifestations, unspecified whether dyskinesia present (CMS/HCC) Start: 08-21-2024 End: 08-21-2024 ambulatory SHEA VOGEL Not Available Start: 08-16-2024 End: 08-16-2024 Telephone encounter Shea Vogel MD Work Phone: [facility] Start: 08-10-2024 End: 08-10-2024 Telephone encounter Shea Vogel MD Work Phone: [facility] Start: 08-08-2024 End: 08-08-2024 Office outpatient visit 25 minutes Sue Rosas GASOLINE TRUCK CRANE OPERATOR Work Phone: [facility] Comment on above: Parkinson's disease without dyskinesia, unspecified whether manifestations fluctuate (CMS/HCC) (Primary Dx) Start: 08-08-2024 End: 08-08-2024 ambulatory SUE ROSAS Not Available Start: 07-17-2024 End: 07-17-2024 Office outpatient visit 40 minutes Shashi Delgado Sadaf-Nossek UNIX DEVELOPER-LARRY CAR OPERATOR Work Phone: [facility] Comment on above: Generalized anxiety disorder (CMS/HCC); Recurrent major depressive disorder, in partial remission (HCC) (CMS/HCC); Panic disorder with agoraphobia (CMS/HCC); Insomnia, unspecified type Start: 07-17-2024 End: 07-17-2024 ambulatory SHASIH Delgado SADAF-NOSSEK Not Available Start: 07-17-2024 End: 07-17-2024 Bamboo flowsheet Shashi M Sadaf-Nossek UNIX DEVELOPER-LARRY CAR OPERATOR Work Phone: [facility] Start: 07-17-2024 End: 07-17-2024 Bamboo flowsheet Shashi M Sadaf-Nossek UNIX DEVELOPER-LARRY CAR OPERATOR Work Phone: [facility] Start: 07-13-2024 End: 07-13-2024 Bamboo flowsheet Foreign Malicki FLOWER CUTTER [facility] Start: 07-13-2024 End: 07-13-2024 Bamboo flowsheet Foreign Malicki FLOWER CUTTER [facility] Start: 07-13-2024 End: 07-13-2024 ambulatory FOREIGN MALICKI Not Available Start: 07-11-2024 End: 07-11-2024 Telephone encounter Shea Vogel MD Work Phone: [facility] Start: 07-10-2024 End: 07-10-2024 Office outpatient new 45 minutes Master Alexander DO Work Phone: [facility] Comment on above: Parkinson's disease without dyskinesia or fluctuating manifestations (CMS/HCC) Start: 07-10-2024 End: 07-10-2024 ambulatory DOMINGABRIDGET ALEXANDER Not Available Start: 07-10-2024 End: 07-10-2024 Bamboo flowsheet Domingasharonanand Legerett DO Work Phone: [facility] Start: 07-10-2024 End: 07-10-2024 Bamboo flowsheet Master Legerett DO Work Phone: [facility] Start: 06-26-2024 End: 06-26-2024 Bamboo flowsheet Foreign Medinaicki FLOWER CUTTER [facility] Start: 06-26-2024 End: 06-26-2024 Bamboo flowsheet Foreign Malicki FLOWER CUTTER [facility] Start: 06-26-2024 End: 06-26-2024 ambulatory FOREIGNJALEN MEDINAICKI Not Available Start: 05-28-2024 End: 05-28-2024 Telephone encounter Shea Vogel MD Work Phone: [facility] Comment on above: Other (weight caller) Start: 05-26-2024 End: 05-26-2024 Bamboo flowsheet Shea Vogel MD Work Phone: [facility] Start: 05-26-2024 End: 05-26-2024 Bamboo flowsheet Shea Vogel MD Work Phone: [facility] Start: 05-26-2024 End: 05-26-2024 Office outpatient visit 25 minutes Shea Vogel MD Work Phone: [facility] Comment on above: Parkinson's disease without dyskinesia or fluctuating manifestations (CMS/HCC) (Primary Dx); Major depressive disorder, recurrent, severe with psychotic symptoms (HCC) (CMS/HCC); Malignant neoplasm of endometrium (CMS/HCC); Unspecified dementia, unspecified severity, without behavioral disturbance, psychotic disturbance, mood disturbance, and anxiety (CMS/HCC); Neuropathy Start: 05-26-2024 End: 05-26-2024 ambulatory SHEA VOGEL Not Available Start: 05-18-2024 End: 05-18-2024 Bamboo flowsheet Shashi Natarajan Sadaf-Nossek UNIX DEVELOPER-LARRY CAR OPERATOR Work Phone: [facility] Start: 05-18-2024 End: 05-18-2024 Bamboo flowsheet Shashi Natarajan Sadaf-Nossek UNIX DEVELOPER-LARRY CAR OPERATOR Work Phone: [facility] Start: 05-18-2024 End: 05-18-2024 Office outpatient visit 40 minutes Shashi Natarajan Sadaf-Nossek UNIX DEVELOPER-LARRY CAR OPERATOR Work Phone: [facility] Comment on above: Generalized anxiety disorder (CMS/HCC); Moderate episode of recurrent major depressive disorder (CMS/HCC); Panic disorder with agoraphobia (CMS/HCC) Start: 05-18-2024 End: 05-18-2024 ambulatory SHASHI Natarajan SADAF-NOSSEK Not Available Start: 04-03-2024 End: 04-03-2024 Bamboo flowsheet Shashi Natarajan Sadaf-Nossek UNIX DEVELOPER-LARRY CAR OPERATOR Work Phone: [facility] Start: 04-03-2024 End: 04-03-2024 Bamboo flowsheet Shashi Natarajan Sadaf-Nossek UNIX DEVELOPER-LARRY CAR OPERATOR Work Phone: [facility] Start: 04-03-2024 End: 04-03-2024 Office outpatient visit 40 minutes Shashi Natarajan Sadaf-Nossek UNIX DEVELOPER-LARRY CAR OPERATOR Work Phone: [facility] Comment on above: Recurrent major depr essive disorder, in partial remission (HCC) (CMS/HCC) (Primary Dx); Generalized anxiety disorder (CMS/HCC); Insomnia, unspecified type Start: 04-03-2024 End: 04-03-2024 ambulatory SHASHI Natarajan SADAF-NOSSEK Not Available Start: 03-23-2024 End: 03-23-2024 ambulatory ILIANA [facility] Start: 03-23-2024 End: 03-23-2024 ambulatory SHEA VOGEL [facility] Start: 03-15-2024 End: 03-15-2024 Telephone encounter Shea Vogel MD Work Phone: [facility] Start: 03-15-2024 End: 03-15-2024 ambulatory ILIANA Yola [facility] Start: 03-08-2024 End: 03-08-2024 Bamboo flowsheet Shea Vogel MD Work Phone: [facility] Start: 03-08-2024 End: 03-08-2024 Bamboo flowsheet Shea Vogel MD Work Phone: [facility] Start: 03-08-2024 End: 03-08-2024 Emergency department patient visit SHEA Augie VOGEL [facility] Start: 03-08-2024 End: 03-08-2024 Office outpatient visit 25 minutes Shea Vogel MD Work Phone: [facility] Comment on above: Oropharyngeal dyspha marshall (Primary Dx); Weight loss Start: 03-08-2024 End: 03-08-2024 ambulatory SHEA VOGEL Not Available Start: 03-07-2024 End: 03-07-2024 ambulatory [facility] Start: 02-23-2024 End: 02-23-2024 Bamboo flowsheet Shea [...] Shea Vogel MD Work Phone: [facility] Comment on above: Chronic gastritis wi thout [...] Office outpatient visit 40 minutes Shashi Servin UNIX DEVELOPER-[facility] Work Phone: [facility] Comment on above: Generalized anxiety disorder ([facility] Insomnia, unspecified type Start: 01-24-2024 End: 01-24-2024 ambulatory SHASHI SERVIN Not Available Start: 01-24-2024 End: 01-24-2024 Telephone encounter Shea Vogel MD Work Phone: [facility] Start: 01-21-2024 End: 01-25-2024 Clinisync Result Encounter Generic External Data Provider [facility] Unsolicited Start: 01-21-2024 End: 01-25-2024 Clinisync Result Encounter Generic External Data Provider [facility] External Department Unsolicited Start: 01-19-2024 End: 01-19-2024 Telephone encounter Shea Augie Jaspreet Work Phone: [facility] Start: 01-11-2024 End: 01-11-2024 ambulatory SHEA VOGEL Not Available Start: 12-30-2023 End: 12-30-2023 ambulatory SHEA VOGEL Not Available Start: 12-24-2023 End: 12-24-2023 ambulatory [facility] Start: 12-13-2023 End: 12-13-2023 ambulatory SHASHI Natarajan SADAFUMER Not Available Start: 12-07-2023 End: 12-07-2023 ambulatory [facility] Start: 11-30-2023 End: 11-30-2023 ambulatory [facility] Start: 11-30-2023 End: 11-30-2023 ambulatory [facility] Start: 11-25-2023 End: 11-25-2023 ambulatory SHEA VOGEL Not Available Start: 10-01-2023 End: 10-01-2023 ambulatory [facility] Start: 09-07-2023 End: 09-10-2023 Emergency department patient visit SHEA Ghosh JASPREET [facility] Start: 08-18-2023 End: 08-18-2023 ambulatory [facility] Start: 07-21-2023 End: 07-21-2023 ambulatory [facility] Start: 07-01-2023 Bamboo flowsheet Saira Weston GASOLINE TRUCK CRANE OPERATOR Work Phone: [facility] Start: 07-01-2023 Bamboo flowsheet Saira Weston GASOLINE TRUCK CRANE OPERATOR Work Phone: [facility] Start: 07-01-2023 Telephone encounter Saira maldonado GASOLINE TRUCK CRANE OPERATOR Work Phone: [facility] Comment on above: Medication Question Start: 07-01-2023 End: 07-01-2023 Office outpatient visit 15 minutes Saira Weston NP Work Phone: [facility] Comment on above: Secondary parkinsoni sm, unspecified secondary Parkinsonism type (CMS/HCC) (Primary Dx); Dystonia; Muscle cramping Start: 08-26-2022 End: 08-27-[address] FRANKIE FIERRO . Facility: Start: 02-04-2017 End: 02-05-2017 Ambulatory RICARDO CARRASCO [facility] Procedures Date Procedure Procedure Detail Performing Clinician Start: 07-13-2024 End: 07-13-2024 Psychotherapy w/patient 60 minutes Moderate episode of recurrent major depressive disorder (CMS/HCC) Foreign Gonzales [facility] Comment on above: Moderate episode of recurrent major depressive disorder (CMS/HCC); Generalized anxiety disorder (CMS/HCC); Panic disorder with agoraphobia (CMS/HCC) Start: 06-26-2024 End: 06-26-2024 Psychiatric diagnostic evaluation Moderate episode of recurrent major depressive disorder (CMS/HCC) Foreign Gonzales [facility] Comment on above: Moderate episode of recurrent major depressive disorder (CMS/HCC); Panic disorder with agoraphobia (CMS/HCC); Generalized anxiety disorder (CMS/HCC) Start: 02-16-2024 Urnls dip stick/tabl et rgnt non-auto w/o micrscp Shea Vogel MD Work Phone: Start: 01-21-2024 Bacteria identified in Urine by Culture Generic External Data Provider Start: 01-11-2024 Mammography Shea Vogel MD Work Phone: Start: 12-24-2023 Follow-up visit Follow-up ANDREW CALI Start: 10-01-2023 Follow-up visit Follow-up EHAD AF REEN Start: 10-15-2022 Mammography Saira Weston GASOLINE TRUCK CRANE OPERATOR Work Phone: Start: 10-01-2022 H/O: hysterectomy H/O: hysterectomy Saira Weston NP Work Phone: Start: 10-08-2017 Colonoscopy Saira Weston NP Work Phone: Plan of Treatment Date Care Activity Detail Author Start: 10-09-2027 Screening for malign ant neoplasm of colon [facility] Start: 01-10-2025 Screening for malign ant neoplasm of breast Mammogram [facility] Start: 10-19-2024 End: 10-19-2024 Patient encounter procedure 10/19/2024 11:20 AM EDT Office Visit [facility] [address] [place] [facility] [place] [phone] Shea Vogel MD [address] [place] [facility] [place] [address] [facility] Start: 09-25-2024 End: 09-25-2024 Patient encounter procedure 09/25/2024 11:30 AM EDT Office Visit [facility] [address] [place] [phone] Shashi Servin, UNIX DEVELOPER-[facility] [address] [place] [address] [facility] Start: 09-12-2024 End: 09-12-2024 Patient encounter procedure [facility] Comment on above: Arrived Start: 08-28-2024 End: 08-28-2024 Patient encounter procedure 08/28/2024 3:00 PM EDT Office Visit KENNA CAMPBELLUSKY [address] [facility] [address] [place] [phone] Master Alexander DO [address] [place] [address] KEN[facility] PATRICIO Start: 08-21-2024 End: 08-21-2024 Patient encounter procedure [facility] Comment on above: Arrived Start: 07-31-2024 End: 07-31-2024 Social Work 07/31/2024 1:30 PM EDT Social Work [facility] [address] [place] [address] Foreign Gonzales [facility] Start: 07-17-2024 End: 07-17-2024 Patient encounter procedure [facility] Comment on above: Generalized anxiety disorder (CMS/HCC); Recurrent major depressive disorder, in partial remission (HCC) (CMS/HCC); Panic disorder with agoraphobia (CMS/HCC) Start: 07-13-2024 End: 07-13-2024 Social Work [facility] Comment on above: Arrived Start: 07-10-2024 End: 07-10-2024 Patient encounter procedure [facility] M[facility] Comment on above: Parkinson's disease without dyskinesia or fluctuating manifestations (CMS/HCC) Start: 06-26-2024 End: 06-26-2024 Social Work [facility] Comment on above: Arrived Start: 05-26-2024 End: 05-26-2024 Patient encounter procedure 05/26/2024 11:20 AM EST Office Visit [facility] [address] [facility] [place] [address] Shea Vogel MD [address] [facility] [place] [address] Arrived [facility] Comment on above: Arrived Start: 05-24-2024 End: 05-24-2024 Patient encounter procedure 05/24/2024 11:00 AM EST Office Visit [facility] [address] [facility] [place] [address] Sue Cassidy NP [address] [facility] [place] [address] [facility] Start: 05-18-2024 End: 05-18-2024 Patient encounter procedure [facility] Comment on above: Arrived Start: 04-03-2024 End: 04-03-2024 Patient encounter procedure [facility] Comment on above: Arrived Start: 03-08-2024 End: 03-08-2024 Patient encounter procedure [facility] Comment on above: Arrived Start: 02-23-2024 End: 02-22-2025 MRCP Abdomen WO and W contrast IV MR abdomen w contrast MRCP Imaging Routine Abnormal gallbladder ultrasound Abdominal pain with vomiting Weight loss Expected: 02/23/2024, Expires: 02/22/2025 [facility] Work Phone: Comment on above: Expected: 02/23/2024 , Expires: 02/22/2025 Start: 02-23-2024 End: 02-23-2024 Patient encounter procedure 02/23/2024 10:00 AM EDT Office Visit [facility] [address] [place] [facility] [place] [phone] Shea Vogel MD [address] [facility] [place], [place] [id number] Arrived [facility] Comment on above: Arrived Start: 02-23-2024 End: 02-23-2024 Professional / ancillary services management 02/23/2024 9:00 AM EDT Ancillary Procedure [facility] [address] [place] [phone] [facility] Start: 02-16-2024 End: 02-15-2025 Bacteria identified in Urine by Culture Urine culture (clean catch) Microbiology Routine Urinary incontinence, unspecified type Expected: 02/16/2024 (Approximate), Expires: 02/15/2025 [facility] Comment on above: Expected: 02/16/2024 (Approximate), Expires: 02/15/2025 Start: 02-16-2024 End: 02-15-2025 Urinalysis complete panel - Urine Urinalysis with reflex microscopic (clean catch) Lab Routine Hematuria, unspecified type Expected: 02/16/2024 (Approximate), Expires: 02/15/2025 [facility] Comment on above: Expected: 02/16/2024 (Approximate), Expires: 02/15/2025 Start: 02-16-2024 End: 02-15-2025 US Abdomen limited US RUQ Imaging Routine Chronic gastritis without bleeding, unspecified gastritis type Urinary incontinence, unspecified type Expected: 02/16/2024, Expires: 02/15/2025 [facility] Work Phone: Comment on above: Expected: 02/16/2024 , Expires: 02/15/2025 Start: 02-15-2024 End: 02-15-2024 Patient encounter procedure 02/15/2024 11:00 AM EDT Office Visit [facility] [address] [facility] [place] [address] Shea Vogel MD [address] [place] [address] [facility] Start: 01-24-2024 End: 01-24-2024 Patient encounter procedure 01/24/2024 3:00 PM EDT Office Visit [facility] [address] [facility] [address] [place] [address] Shashi Servin, UNIX DEVELOPER-LARRY CAR OPERATOR [address] [facility] [address] [place] [address] [facility] Start: 01-16-2024 Influenza vaccination Influenza Vacc ine (#1) [facility] Start: 01-07-2024 Medicare Annual Well ness (AWV) Medicare Annual Wellness (AWV) [facility] Start: 10-16-2023 Screening for malign ant neoplasm of breast Mammogram [facility] Start: 08-12-2023 End: 08-12-2023 Patient encounter procedure 08/12/2023 11:00 AM EDT Office Visit [facility] [address] [facility] [place] [address] Saira Weston NP [address] [place] [address] [facility] Start: 07-27-2023 End: 07-27-2023 Patient encounter procedure 07/27/2023 11:00 AM EDT Office Visit [facility] [address] [facility] [address] [place] [address] Shashi Servin, UNIX DEVELOPER-LARRY CAR OPERATOR [address] [facility] [address] [place] [address] [facility] Start: 07-19-2023 End: 07-19-2023 Patient encounter procedure 07/19/2023 2:00 PM EST Office Visit [facility] [address] [place] [phone] Hoang Eddy, DPM [address] [place], [place] [phone] [facility] Start: 07-01-2023 End: 07-01-2023 Patient encounter procedure 07/01/2023 1:30 PM EST [facility] [address] [place] [phone] Saira Weston, GASOLINE TRUCK CRANE OPERATOR [address] [place], [place] [phone] Arrived [facility] Comment on above: Arrived Start: 1955 Screening for malign ant neoplasm of colon [facility] Bacteria identified in Urine by Culture URINE CULTURE, ROUTINE Lab Routine 01/21/2024 3:52 PM EDT [facility] Immunizations Immunization Date Immunization Notes Care Provider [facility] 02-01-2024 influenza, high dose seasonal, preservative-free Shea Vogel MD Work Phone: [facility] 05-13-2023 Influenza, High-dose Seasonal, Quadrivalent, Preservative Free Saira Weston GASOLINE TRUCK CRANE OPERATOR Work Phone: [facility] 05-13-2023 influenza virus vacc ine, unspecified formulation Shea Vogel MD Work Phone: [facility] 01-06-2023 pneumococcal conjuga te vaccine, 13 valent Saira Weston GASOLINE TRUCK CRANE OPERATOR Work Phone: [facility] 04-16-2022 Moderna SARS-CoV-2 50mcg/0.5mL Booster Saira Weston GASOLINE TRUCK CRANE OPERATOR Work Phone: [facility] 02-09-2022 influenza, injectabl e, quadrivalent, preservative free Saira Weston GASOLINE TRUCK CRANE OPERATOR Work Phone: [facility] 04-04-2021 Pfizer Purple Cap SARS-CoV-2 Vaccination Saira Weston GASOLINE TRUCK CRANE OPERATOR Work Phone: [facility] 02-12-2021 Influenza, High-dose Seasonal, Quadrivalent, Preservative Free Saira Weston GASOLINE TRUCK CRANE OPERATOR Work Phone: [facility] 05-02-2020 Influenza, High-dose Seasonal, Quadrivalent, Preservative Free Saira Weston GASOLINE TRUCK CRANE OPERATOR Work Phone: [facility] 05-02-2020 pneumococcal polysaccharide vaccine, 23 valent Saira Weston GASOLINE TRUCK CRANE OPERATOR Work Phone: [facility] 09-30-2019 zoster vaccine recombinant L uann Weston GASOLINE TRUCK CRANE OPERATOR Work Phone: [facility] 07-28-2019 zoster vaccine recombinant L uann Weston GASOLINE TRUCK CRANE OPERATOR Work Phone: [facility] 03-23-2019 influenza, injectabl e, quadrivalent, preservative free Saira Weston GASOLINE TRUCK CRANE OPERATOR Work Phone: [facility] 03-30-2018 influenza, injectabl e, quadrivalent, preservative free Saira Weston GASOLINE TRUCK CRANE OPERATOR Work Phone: [facility] 03-11-2017 influenza, injectabl e, quadrivalent, preservative free Saira Weston GASOLINE TRUCK CRANE OPERATOR Work Phone: [facility] 02-20-2016 influenza, injectabl e, quadrivalent, preservative free Saira Weston GASOLINE TRUCK CRANE OPERATOR Work Phone: [facility] Payers Date Payer Category Payer Private Health Insurance [employer] [id number] 2021 Unknown [employer] [id number] 2021-Present [address] [place] [address] [id number] 2019 Medicare [id number] 1959 Medicare [id number] 1959 Unknown [id number] 1954 Unknown [id number] 2.16.840.1.023270.3.579.2. 593 1954 Unknown [id number] 2.16.840.1.435773.3.579.2. 128 1954 Unknown [id number] 2.16.840.1.178423.3.579.2. 1285 1954 Unknown [id number] 2.16.840.1.776524.3.579.2. 128 1954 Unknown [id number] 2.16.840.1.223973.3.579.2. 1285 1954 Unknown [id number] 2.16.840.1.204310.3.579.2. 128 1954 Unknown [id number] 2.16.840.1.888204.3.579.2. 1285 1954 Unknown [id number] 2.16.840.1.797241.3.579.2. 128 1954 Unknown [id number] 2.16.840.1.629810.3.579.2. 128 1954 Unknown [id number] 2.16.840.1.608703.3.579.2. 128 1954 Unknown [id number] 2.16.840.1.300172.3.579.2. 128 1954 Unknown [id number] 2.16.840.1.224484.3.579.2. 1285 1954 Unknown [id number] 2.16.840.1.347266.3.579.2. 1285 1954 Unknown [id number] 2.16.840.1.074623.3.579.2. 1286 1954 Unknown [id number] 2.16.840.1.279816.3.579.2. 1258 1954 Unknown [id number] 2.16.840.1.824166.3.579.2. 1258 1954 Unknown [id number] 2.16.840.1.902206.3.579.2. 1258 1954 Unknown [id number] 2.16.840.1.425648.3.579.2. 1258 1954 Unknown [id number] 2.16.840.1.582095.3.579.2. 1258 1954 Unknown [id number] 2.840.1.400174.3.579.2. 1258 1954 Unknown [id number] 2.16.840.1.117781.3.579.2. 1258 1954 Unknown [id number] 2.16.840.1.197878.3.579.2. 1258 1954 Unknown [id number] 2..840.1.845879.3.579.2. 1258 1954 Unknown [id number] 2.840.1.700010.3.579.2. 1258 1954 Unknown [id number] 2.16.840.1.477263.3.579.2. 1258 1954 Unknown [id number] 2.16.840.1.865695.3.579.2. 1258 1954 Unknown [id number] 2.16.840.1.490899.3.579.2. 1258 1954 Unknown [id number] 2.16.840.1.530496.3.579.2. 1258 1954 Unknown [id number] 2.16.840.1.423328.3.579.2. 1259 1954 Unknown [id number] 2.16.840.1.485106.3.579.2. 9 1954 Unknown [id number] 2.16.840.1.426590.3.579.2. 1258 1954 Unknown [id number] 2.16.840.1.679284.3.579.2. 1258 1954 Unknown [id number] 2.16.840.1.178792.3.579.2. 1258 1954 Unknown [id number] 2.16.840.1.173086.3.579.2. 1258 1954 Unknown [id number] 2.16.840.1.118303.3.579.2. 1259 Social History Date Type Detail Facility Start: 09-26-2022 Tobacco smoking status [place]IS Never sm oked tobacco [facility] Start: 09-26-2022 Tobacco use and exposure Smoke less tobacco non-user [facility] Start: 06-01-2023 End: 08-21-2024 Alcohol intake Ex-drinker (finding) [facility] Start: 10-05-2022 End: 07-17-2024 [facility] of Social function [facility] Start: 10-05-2022 End: 07-17-2024 Alcohol Use Disorder Identification Test - Consumption [AUDIT-C] [facility] How often to you hav e a drink containing alcohol? Never [facility] How many standard dr inks containing alcohol do you have on a typical day? Patient does not drink [facility] Start: 04-14-2023 Alcohol Comment none, Caffeine intake: none [facility] Start: 1955 Sex Assigned At Not on file [facility] Clinical Notes 09-11-2021 to 09-12-2024 Master Alexander DO - 09/12/2024 2:30 PM EDTTelephone Encounter - Sue Rosas NP - 08/24/2024 10:02 AM EDTTelephone Encounter - Bernadette Ramos MA - 08/22/2024 2:13 PM EDTPatient Instructions Note Date & Type Note Facility 09-12-2024 History of Present illness Narrative Images from the original note were not included. Chief Complaint: PD Kam Gregg is a 68 y.o. female. History of Present Illness The patient states her tremor is less than the past. She states her legs and hands get stiff and lock up. Her legs are very restless and are constantly moving. She is having a hard time sleeping. She has a hard time getting comfortable. She gets hot at night. She gets very overheated at night. She is drooling. She denies nightmares for quite some time. She admits to both auditory and visual hallucinations. She sees big bugs on the floor. It can keep her up at night. When she is tired she has a really hard time telling a hallucination from reality. She is having increased confusion, intermittently. She will sometimes be in her room and not realize she is in her room with her own things. She continues to have days she cannot walk at all, however she is in PT and notes it has been helpful. She is doing the stationary bike and walking the halls. When she first wakes up both legs are extremely stiff. She wakes up at night with stiff hands. She is having bladder and bowel urgency. She has had both bladder and bowel incontinence, her fecal incontinence will be her full movement. She was supposed to get a fecal specimen sent in but the nursing staff has yet to collect the sample, although she tells them when she needs to use the restroom. Review of Systems Constitutional: Negative for appetite change, chills, fatigue, fever and unexpected weight change. HENT: Negative for trouble swallowing and voice change. Eyes: Negative for visual change, double vision or loss of vision Respiratory: Negative for cough, shortness of breath and wheezing. Cardiovascular: Negative for chest pain and palpitations. Gastrointestinal: Negative for abdominal pain, blood in stool, nausea and vomiting. Musculoskeletal: Positive for gait problem. Negative for arthralgias and myalgias. Neurological: Positive for tremors, weakness and numbness (bilateral feet). Negative for dizziness, seizures, syncope, facial asymmetry, speech difficulty, light-headedness and headaches. Positive for memory difficulty, slowness of movement, and stiffness Psychiatric/Behavioral: Positive for confusion. Negative for hallucinations and suicidal ideas. The patient is not nervous/anxious. Past Medical History: Diagnosis Date Depression (CMS/HCC) Endometrial cancer (CMS/HCC) 2004 History of being hospitalized 08/2022 [facility] x[facility] History of being hospitalized 04/2022 [facility] x[facility] days History of psychiatric hospitalization [facility] 06/2022 and 04/2022 Nontoxic multinodular goiter (CMS/HCC) Osteoporosis (CMS/HCC) Parathyroid adenoma Parkinson's disease Spinal stenosis Thyroid nodule (CMS/HCC) Vitamin D deficiency Past Surgical History: Procedure Laterality Date BONE MARROW BIOPSY 07/10/2022 L1 BREAST BIOPSY Right 2003 COLONOSCOPY 2009 FIXATION KYPHOPLASTY LUMBAR SPINE 07/10/2022 Balloon Kyphoplasty w elevation of fracture and cement augmentation of L1 vertebral body HIP FRACTURE SURGERY Left 09/14/2021 HYSTERECTOMY 2005 Total [place] LASER SURGERY OF EYE Right 02/2019 TUBAL LIGATION Bilateral 2001 Family History Problem Relation Name Age of Onset Hypertension Mother Osteoporosis Mother Nephrolithiasis Mother Alzheimer's disease Father Migrated Family History Mental illness Father Other (blader cancer) Brother Heart disease Maternal Grandmother Heart disease Maternal Grandfather Mental illness Paternal Grandmother Heart disease Paternal Grandfather Schizophrenia Nephew Alcohol abuse Neg Hx Drug abuse Neg Hx Social History Tobacco Use Smoking status: Never Smokeless tobacco: Never Substance Use Topics Alcohol use: Not Currently Comment: none, Caffeine intake: none Allergies: Bupropion Vitals: 09/12/24 1413 BP: 112/70 Pulse: 76 Body mass index is 16.06 kg/m . Weight: 85 lb Neurologic exam: Mental status and general appearance: Awake and alert with unlabored respirations. Oriented to person and time. Not oriented to current place. Recent and remote memory are partially impaired. Speech is clear and fluent without aphasia. Speech is non-dysarthric. Hypophonia. Attention and concentration are normal. Fund of knowledge is appropriate for level of education. Thin. Flat affect. Hypomimia. Cranial nerves: CN II: Visual acuity is normal. Visual georges full to confrontation. CN III, IV, : Pupils are equal, round, and reactive to light. Extraocular movements intact. No ptosis present. CN V: Facial sensation is normal. CN VII: Full and symmetric facial movement. CN VIII: Hearing is normal to finger rub bilaterally. CN IX and X: Palate elevates symmetrically. CN XI: Shoulder shrug is normal bilaterally. CN XII: Tongue is midline without atrophy or fasciculation. Motor: RUE strength deltoid , biceps , triceps , wrist extensors , wrist flexor , and sorter operator strength 5/5. LUE strength deltoid , biceps , triceps , wrist extensors , wrist flexor , and sorter operator strength 5/5. RLE strength iliopsoas, quadriceps, tibialis anterior, and plantar flexion strength 4-/5. LLE strength iliopsoas, quadriceps, tibialis anterior, and plantar flexion strength 4-/5. Moderate rigidity of the bilateral upper extremities (right more significant than left). No rest tremor observed today. Postural and intention tremor of the bilateral upper extremities (right > left). Sensory: Sensation is intact to light touch throughout all four extremities. Reduced in the distal lower extremities. Reflexes: RUE biceps reflex 1+ , brachioradialis reflex 1+. LUE biceps reflex 1+ , brachioradialis reflex 1+. RLE knee reflex 0. LLE knee reflex 0. Coordination: Lumvzm-be-ljmc testing normal. Rapid alternating movements are normal. Gait: Not assessed, as the patient presents in a wheelchair today. Review and summary of old records: Patient was previously seen by Neurology in [place], Dr. Delacruz, and his recommendations were as follows:On 03/07/2024 - strongly recommend that the patient get [...] - return to clinic in four months. CT of the brain without contrast on 08/11/2022: No acute intracranial abnormality Assessment/Plan Diagnoses and all orders for this visit: Parkinson's disease without dyskinesia, unspecified whether manifestations fluctuate ([facility]) Ms. Gregg is a 68-year-old female who I believe has Parkinson's disease. She presents with clinical features and exam findings consistent with this. The patient was initially diagnosed with Parkinson's disease 15 years ago at the age of 53 years. Onset in 2009 would argue against a parkinsonism such as progressive supranuclear palsy or multi-system atrophy. The patient is taking quite high doses of Sinemet (IR 25-100 mg 2 tablets PO QID and CR 25-100 mg 1 tablet PO QID) but continues to have some functional disability in regard to her motor symptoms. I believe she could benefit from a change in treatment plan to help improve management. She does seem to have some chronic cognitive impairment as well, possibly related to her PD. No hallucinations or dream enactment type behavior is reported to suggest dementia with Lewy bodies. She is a resident at a facility. PLAN: START entacapone 200 mg 1 tablet po daily at 6am. - Continue Sinemet IR 25-100 mg tablet - take 2 tablets by mouth four times a day (at 6:00 am, 10:00 am, 2:00 pm, and 6:00 pm) - Continue Sinemet CR 25-100 mg tablet - take 1 tablet by mouth four times a day (at 6:00 am, 10:00 am, 2:00 pm, and 6:00 pm) - I discussed treatment options for Parkinson's disease with the patient and her tpgzqi-yo-ujm in detail today. In particular, we discussed the addition of entacapone and/or referral to a movement disorder specialist for further evaluation/management and consideration of deep brain stimulation. The patient and her family member would like to take some time to discuss these options and will notify the office to let us know how they would like to proceed - Referral to Home Health for PT and OT - Okay to continue rivastigmine 3 mg by mouth twice a day - Could consider MOCA for cognitive evaluation at follow-up - Facility to continue to assist with medications and ADLs/IADLs as needed - The patient is also on mirtazapine and melatonin at night which we will monitor - The patient is noted to be on Ativan at night as well and certainly. the use of benzodiazepines, although they may be helpful for hallucinations and anxieties, or dangerous in the elderly and could lead to falls Continue string nutrition and goal of weight increase Diagnosis and treatment options discussed in detail. All questions answered. The patient and her kcixhe-sw-lvh verbalizes understanding and are agreeable to the plan. Discussion in layman's terms. Follow up in the office within 2 month; sooner if needed for new or worsening symptoms. documented in this encounter [facility] 08-24-2024 Miscellaneous Notes Yes, we did discuss that. I will order. Patient's pbrooe-rf-qkh, jeb Fong. States that at the last office visit, Fabiana was discuss and she would like to try this after all. Asking for this to be sent to the pharmacy. Call back [phone] documented in this encounter [facility] 08-24-2024 Telephone encounter Note Yes, we did discuss that. I will order. [facility] 08-22-2024 Telephone encounter Note Patient's eyinrk-lk-qiw, jeb Fong. States that at the last office visit, Fabiana was discuss and she would like to try this after all. Asking for this to be sent to the pharmacy. Call back [phone] [facility] 08-21-2024 History of Present illness Narrative Images from the original note were not included. Mirian Gregg is a 68 y.o. female presents with chief complaint of Follow-up (3 month follow up.), Altered Mental Status, and Hallucinations HPI: HPI History of Present Illness Continues with severe parkinsons, limited movement and activity, confined to wheelchair. Cont with poor appetite Has significnat visual hallucinations, working with neurology and psychiatry with these SUBJECTIVE: MEDICATIONS: Current Outpatient Medications Medication Instructions acetaminophen (TYLENOL) 1,000 mg, Every 8 hours PRN baclofen (LIORESAL) 10 mg, Oral, Every 8 hours brimonidine (AlphaGAN P) 0.2 % ophthalmic solution 2 drops, 3 times daily calcium carbonate (TUMS) 500 mg, 3 times daily PRN carbidopa-levodopa (Sinemet) 25-100 MG tablet 2 tablets, 4 times daily carbidopa-levodopa CR (Sinemet CR) 25-100 MG ER tablet 1 tablet, 4 times daily cholecalciferol (VITAMIN D3) 25 mcg, Daily gabapentin (NEURONTIN) 300 mg, Oral, 3 times daily hydrOXYzine pamoate (VISTARIL) 25 mg, Oral, Every 8 hours PRN hyoscyamine (ANASPAZ,LEVSIN) 0.125 mg, Every 4 hours PRN ibandronate (BONIVA) 150 mg, Oral, Every 30 days, Take in morning with full glass of water on an empty stomach. No food, drink, meds, or lying down for 60 minutes after. ibuprofen 400 mg, Every 8 hours PRN loperamide (IMODIUM) 2 mg, 4 times daily PRN LORazepam (ATIVAN) 0.25 mg, Oral, Every 12 hours megestrol (MEGACE) 40 mg, Daily Melatonin 5 [...] 0.5 % ophthalmic solution 1 drop, Daily ALLERGIES: Allergies Allergen Reactions Bupropion Unknown SURGICAL HISTORY: Past Surgical History: Procedure Laterality Date BONE MARROW BIOPSY 07/10/2022 L1 BREAST BIOPSY Right 2003 COLONOSCOPY 2009 FIXATION KYPHOPLASTY LUMBAR SPINE 07/10/2022 Balloon Kyphoplasty w elevation of fracture and cement augmentation of L1 vertebral body HIP FRACTURE SURGERY Left 09/14/2021 HYSTERECTOMY 2005 Total [place] LASER SURGERY OF EYE Right 02/2019 TUBAL [...] none Drug use: Never Depression: At risk (07/17/2024) PHQ-2 PHQ-2 Score: 4 REVIEW OF SYMPTOMS: Review of Systems OBJECTIVE: Visit Vitals BP 100/58 (BP Location: Left arm, Patient Position: Sitting, BP Cuff Size: Adult) Pulse 102 Resp 16 Ht 5' 1 Wt 85 lb 3.2 oz SpO2 98% BMI 16.10 kg/m Smoking Status Never BSA 1.29 m Physical Exam Constitutional: Comments: Frail in wheechair HENT: Head: Normocephalic and atraumatic. Nose: Nose [...] No sensory deficit. Gait: Gait normal. Psychiatric: Comments: Down mood an d affect ASSESSMENT AND PLAN: Assessment/Plan Problem List Items Addressed This Visit Recurrent major depressive disorder, in partial remission (HCC) (CMS/HCC) Major depressive disorder, single episode, unspecified (CMS/HCC) Osteoporosis (CMS/HCC) Parkinson's disease Other Visit Diagnoses Weight loss - Primary Relevant Medications megestrol (Megace) 40 MG tablet Cont wth weight loss will increase megace to 80 mg Recheck in 3 month documented in this encounter [facility] 08-16-2024 Telephone encounter Note Vm left at 2:16 pm La, this is Pedro calling from [employer]. And I had fixed over a facts asking for a you a in [place] for Mirian Boor. Because she is showing some signs of confusion. And I was just hoping I could get the drOctavio to sign it and fix it back to me. Um, if you have any questions, it is [phone] and ask For Peg. I am the nurse. And the fax number is [phone]. Thank you, ricardo. [facility] 08-16-2024 Miscellaneous Notes Woo left at 2:16 pm Hi, this is Pedro calling from [employer]. And I had fixed over a facts asking for a you a in [place] for Mirian Boor. Because she is showing some signs of confusion. And I was just hoping I could get the drOctavio to sign it and fix it back to me. Um, if you have any questions, it is [phone] and ask For Peg. I am the nurse. And the fax number is [phone]. Thank you, ricardo. documented in this encounter [facility] 08-10-2024 Telephone encounter Note Melida from [facility] calling to ask if you would follow for home health orders. I told her you would follow. [facility] 08-10-2024 Miscellaneous Notes Melida from [facility] calling to ask if you would follow for home health orders. I told her you would follow. documented in this encounter [facility] 08-08-2024 History of Present illness Narrative Images from the original note were not included. Chief Complaint Patient presents with Parkinson's Disease Subjective Mirian Gregg is a 68 y.o. female. History of Present Illness The patient presents today for follow-up for Parkinson's disease. She is accompanied by her vxcclj-pz-tux, Betsy. She is taking Sinemet IR 25-100 mg 2 tablets four times a day and Sinemet CR 25-100 mg 1 tablet four times a day. She denies dyskinesias. She states her Parkinson's symptoms depend upon the day. The patient is right hand dominant and has an intermittent tremor of the bilateral hands (left > right). This can occur with rest or action. It can cause her difficulty holding utensils to feed herself some days. She admits to some slowness of movement and muscle stiffness. When asked if she shuffles her feet while walking, she states, probably. She has not fallen since the prior neurology appointment and resides in assisted living (x 2-3 years). She receives assistance with ADLs and medication management. She denies swallowing difficulty but states she can have drooling, sometimes; depends upon if my nose is plugged. She describes her memory as terrible. She denies hallucinations or dream enactment behavior. She does have bilateral foot numbness which is chronic. She denies any further new concerns. Review of Systems Constitutional: Negative for appetite change, chills, fatigue, fever and unexpected weight change. HENT: Negative for trouble swallowing and voice change. Eyes: Negative for visual change, double vision or loss of vision Respiratory: Negative for cough, shortness of breath and wheezing. Cardiovascular: Negative for chest pain and palpitations. Gastrointestinal: Negative for abdominal pain, blood in stool, nausea and vomiting. Musculoskeletal: Positive for gait problem. Negative for arthralgias and myalgias. Neurological: Positive for tremors, weakness and numbness (bilateral feet). Negative for dizziness, seizures, syncope, facial asymmetry, speech difficulty, light-headedness and headaches. Positive for memory difficulty, slowness of movement, and stiffness Psychiatric/Behavioral: Positive for confusion. Negative for hallucinations and suicidal ideas. The patient is not nervous/anxious. Past Medical History: Diagnosis Date Depression ([facility]) Endometrial cancer ([facility]) 2004 History of being hospitalized 08/2022 [facility] x[facility] days History of being hospitalized 04/2022 [facility] x[facility] days History of psychiatric hospitalization [facility] 06/2022 and 04/2022 Nontoxic multinodular goiter ([facility]) Osteoporosis ([facility]) Parathyroid adenoma Parkinson's disease Spinal stenosis Thyroid nodule ([facility]) Vitamin D deficiency Past Surgical History: Procedure Laterality Date BONE MARROW BIOPSY 07/10/2022 L1 BREAST BIOPSY Right 2003 COLONOSCOPY 2009 FIXATION KYPHOPLASTY LUMBAR SPINE 07/10/2022 Balloon Kyphoplasty w elevation of fracture and cement augmentation of L1 vertebral body HIP FRACTURE SURGERY Left 09/14/2021 HYSTERECTOMY 2005 Total [place] LASER SURGERY OF EYE Right 02/2019 TUBAL LIGATION Bilateral 2000 Family History Problem Relation Name Age of Onset Hypertension Mother Osteoporosis Mother Nephrolithiasis Mother Alzheimer's disease Father Migrated Family History Mental illness Father Other (blader cancer) Brother Heart disease Maternal Grandmother Heart disease Maternal Grandfather Mental illness Paternal Grandmother Heart disease Paternal Grandfather Schizophrenia Nephew Alcohol abuse Neg Hx Drug abuse Neg Hx Social History Tobacco Use Smoking status: Never Smokeless tobacco: Never Substance Use Topics Alcohol use: Not Currently Comment: none, Caffeine intake: none Allergies: Bupropion Vitals: 08/08/24 1306 BP: 128/76 Pulse: 105 SpO2: 97% Body mass index is 16.06 kg/m . Weight: 85 lb Neurologic exam: Mental status and general appearance: Awake and alert with unlabored respirations. Oriented to person and time. Not oriented to current place. Recent and remote memory are partially impaired. Speech is clear and fluent without aphasia. Speech is non-dysarthric. Hypophonia. Attention and concentration are normal. Fund of knowledge is appropriate for level of education. Thin. Flat affect. Hypomimia. Cranial nerves: CN II: Visual acuity is normal. Visual georges full to confrontation. CN III, IV, : Pupils are equal, round, and reactive to light. Extraocular movements intact. No ptosis present. CN V: Facial sensation is normal. CN VII: Full and symmetric facial movement. CN VIII: Hearing is normal to finger rub bilaterally. CN IX and X: Palate elevates symmetrically. CN XI: Shoulder shrug is normal bilaterally. CN XII: Tongue is midline without atrophy or fasciculation. Motor: RUE strength deltoid , biceps , triceps , wrist extensors , wrist flexor , and sorter operator strength 5/5. LUE strength deltoid , biceps , triceps , wrist extensors , wrist flexor , and sorter operator strength 5/5. RLE strength iliopsoas, quadriceps, tibialis anterior, and plantar flexion strength 4-/5. LLE strength iliopsoas, quadriceps, tibialis anterior, and plantar flexion strength 4-/5. Moderate rigidity of the bilateral upper extremities (right more significant than left). No rest tremor observed today. Postural and intention tremor of the bilateral upper extremities (right > left). Sensory: Sensation is intact to light touch throughout all four extremities. Reduced in the distal lower extremities. Reflexes: RUE biceps reflex 1+ , brachioradialis reflex 1+. LUE biceps reflex 1+ , brachioradialis reflex 1+. RLE knee reflex 0. LLE knee reflex 0. Coordination: Bfeprs-qu-gola testing normal. Rapid alternating movements are normal. Gait: Not assessed, as the patient presents in a wheelchair today. Review and summary of old records: Patient was previously seen by Neurology in [place], Dr. Delacruz, and his recommendations were as follows:On 03/07/2024 - strongly recommend that the patient get [...] - return to clinic in four months. CT of the brain without contrast on 08/11/2022: No acute intracranial abnormality Assessment/Plan Diagnoses and all orders for this visit: Parkinson's disease without dyskinesia, unspecified whether manifestations fluctuate ([facility]) Ms. Gregg is a 68-year-old female who I believe has Parkinson's disease. She presents with clinical features and exam findings consistent with this. The patient was initially diagnosed with Parkinson's disease 15 years ago at the age of 53 years. Onset in 2009 would argue against a parkinsonism such as progressive supranuclear palsy or multi-system atrophy. The patient is taking quite high doses of Sinemet (IR 25-100 mg 2 tablets PO QID and CR 25-100 mg 1 tablet PO QID) but continues to have some functional disability in regard to her motor symptoms. I believe she could benefit from a change in treatment plan to help improve management. She does seem to have some chronic cognitive impairment as well, possibly related to her PD. No hallucinations or dream enactment type behavior is reported to suggest dementia with Lewy bodies. She is a resident at a facility. PLAN: - Continue Sinemet IR 25-100 mg tablet - take 2 tablets by mouth four times a day (at 6:00 am, 10:00 am, 2:00 pm, and 6:00 pm) - Continue Sinemet CR 25-100 mg tablet - take 1 tablet by mouth four times a day (at 6:00 am, 10:00 am, 2:00 pm, and 6:00 pm) - I discussed treatment options for Parkinson's disease with the patient and her oackji-nm-vbm in detail today. In particular, we discussed the addition of entacapone and/or referral to a movement disorder specialist for further evaluation/management and consideration of deep brain stimulation. The patient and her family member would like to take some time to discuss these options and will notify the office to let us know how they would like to proceed - Referral to Home Health for PT and OT - Okay to continue rivastigmine 3 mg by mouth twice a day - Could consider MOCA for cognitive evaluation at follow-up - Facility to continue to assist with medications and ADLs/IADLs as needed - The patient is also on mirtazapine and melatonin at night which we will monitor - The patient is noted to be on Ativan at night as well and certainly. the use of benzodiazepines, although they may be helpful for hallucinations and anxieties, or dangerous in the elderly and could lead to falls The patient is noted to be 85 pounds today. We discussed that I do have concerns regarding her weight and low BMI. Grpvgq-vg-ngn states the patient weighed as little at 72 pounds in July 2023, so this is actually an improvement. She is already taking Megace 40 mg by mouth twice a day. I recommended the addition of high calorie diet supplements to help maintain/increase weight and recommended encouragement of regular meals. Patient believes Boost supplements caused her diarrhea previously and refuses these. Discussed that there are other options. Diagnosis and treatment options discussed in detail. All questions answered. The patient and her gthons-cy-yjn verbalizes understanding and are agreeable to the plan. Discussion in layman's terms. Follow up in the office within 1 month; sooner if needed for new or worsening symptoms. Sue Rosas NP [facility] documented in this encounter [facility] 08-08-2024 Instructions Sue Rosas NP - 08/08/2024 1:20 PM EDT - Referral to physical therapy and occupational therapy documented in this encounter [facility] 07-17-2024 History of Present illness Narrative Images from the original note were not included. HPI: Mirian Gregg is a 68 y.o. female with a history of RICHARD and Recurrent MDD. Patient is here today for follow-up with her sisterin law. At patient's last visit, we had increased Zoloft 100mg bid to target worsening of depression. Patient also started counseling with [facility]. Patient has improved since last appointment. Mood is reported as less depressed. Feels anxious. More anxious around crowds. Sleep is reported as 11-7, 8 hours. Appetite is reported as eating more. Patient reports they have been compliant with medication regimen. Patient denies any side effects or somatic complaints. Patient denies abuse of substances. Medical problems since last visit: Under care of neurologist. Changed the sinemet times. Fell and broke ribs. She has times where body freezes. Gets cramping. Psychosocial stressors include: problems with stiffening of legs. August returns to neurologists. SUBJECTIVE: PAST MEDICAL HISTORY: Past Medical History: Diagnosis Date Depression (CMS/HCC) Endometrial cancer (CMS/HCC) 2004 History of being hospitalized 08/2022 [facility] x12 days History of being hospitalized 04/2022 [facility] x14 days History of psychiatric hospitalization [facility] 06/2022 and 04/2022 Nontoxic multinodular goiter (CMS/HCC) Osteoporosis (CMS/HCC) Parathyroid adenoma Parkinson's disease (CMS/HCC) Spinal stenosis Thyroid nodule (CMS/HCC) Vitamin D deficiency MEDICATIONS: Current Outpatient Medications Medication Instructions acetaminophen [...] 4 times daily, Also taking Carb-lev ER QID
Take at 6am, 10am, 2pm, and 6pm. carbidopa-levodopa CR (Sinemet CR) 25-100 MG ER tablet 1 tablet, Oral, 4 times daily, Take 1 tab at 6am, 10am, 2pm, and 6pm. cholecalciferol (VITAMIN D3) 25 mcg, Daily gabapentin (NEURONTIN) 300 mg, Oral, 3 times daily hydrOXYzine pamoate (VISTARIL) 25 mg, Every 6 [...] FRACTURE SURGERY Left 09/14/2021 HYSTERECTOMY 2005 Total [place] LASER SURGERY OF EYE Right 02/2019 TUBAL [...] none, Caffeine intake: none Drug use: Never Patient Care Team: Shea Vogel MD as PCP - General (Family Medicine) Shea Vogel MD as PCP - ACO Reach Saira Weston NP as Nurse Practitioner (Family Medicine) Shashi Servin APRN-LARRY CAR OPERATOR as Nurse Practitioner (Psychiatry) Foreign Gonzales LPC as Mobile Application Developer (Behavioral Health) PSYCHIATRIC REVIEW OF SYMPTOMS AND MENTAL STATUS EXAM ROS: Appearance Appearance: Normal grooming and hygiene. Appears stated age. Dressed appropriately for weather. Behavior Calm, cooperative, pleasant. Good posture. Psychomotor Activity Intact. No abnormal movements noted. Eye contact Good Speech Normal, clear, regular rate, rhythm and volume Affect Flat Mood Anxious Thought Process Organized, logical, and goal directed Thought Content: Denies suicidal and homicidal ideation. Perception: Denies auditory or visual hallucinations. No evidence of delusions. Denies derealization and depersonalization. Cognition Alert and attentive during visit Memory Impaired immediate memory and Impaired recent memory Insight Good. Acknowledges predominant symptoms of illness and need for treatment Judgement -fair -difficulty making decisions OBJECTIVE: Visit Vitals Smoking Status Never No [...] Panic disorder [episodic paroxysmal anxiety] - F41.0 4. Parkinsons Treatment Plan/Recommendations: Treatment remeron Tablet, 30 MG, 1 tablet at bedtime prn anxiety, Orally, Once a day, 30 days-target sleep and anxiety. Ativan Tablet, 0.25 MG, 1 tablet, every 12 hours prn for severe anxiety -Assisted living notified not to be giving routine. And only give for severe anxiety zoloft 100 mg bid 1 daily every day. -to target worsening of depression Counseling with Foreign Gonzales Provided with summary of visit. Patient and sister in law will attempt follow with Dr Jaspreet barrett physical complaints And neuro Reviewed med list for accuracy Encouraged increase in activity and getting out of her room. - Continue counseling for additional mental health support and treatment. - RTC in 2.5months . Discussed any medication changes and follow-up plan with patient. Encouraged patient to call office sooner if symptoms worsen or if any questions/concerns arise. Patient was seen Face to Face, Total time spent with patient [id number] , which includes reviewing chart documents, previous notes/records, counseling and discussion with patient and/or coordination of care as described above. documented in this encounter [facility] 07-11-2024 Telephone encounter Note Brian from [facility] called to inform that pt is being discharged from home health today. [facility] 07-11-2024 Miscellaneous Notes Brian from [facility] called to inform that pt is being discharged from home health today. documented in this encounter [facility] 07-10-2024 History of Present illness Narrative Images from the original note were not included. Chief complaint: Parkinson's disease Subjective Mirian Johnson Marysol, 68 y.o., female Patient presents today for a neurologic consult for Parkinson's. She is accompanied by her sister in law, Hetal. She was diagnosed about 15 years ago. Patient ambulates with a walker but most of the time utilizes a wheelchair. She states bilateral legs freeze up and they are painful. She admits to constant numbness and tingling. She has had multiple falls. The last fall was one month ago and she broke three ribs. She has had multiple other broken bones like a hip and she has rods in her leg. She states her arms and hands get stiff as well. This makes it hard for her to eat. She reports some difficulty swallowing. She reports a constant tremor in bilateral hands with the left being worse. She struggles a bit with her memory. Mainly with numbers and dates. Review of Systems Constitutional: Negative for appetite change, fatigue and fever. Respiratory: Negative for cough, shortness of breath and wheezing. Cardiovascular: Negative for chest pain, palpitations and leg swelling. Gastrointestinal: Negative for abdominal pain, constipation, diarrhea and nausea. Musculoskeletal: Positive for gait problem. Negative for arthralgias and myalgias. Neurological: Positive for tremors and weakness. Negative for dizziness, numbness and headaches. Past Medical History: Diagnosis Date Depression ([facility]) Endometrial cancer ([facility]) 2004 History of being hospitalized 08/2022 [facility] x12 days History of being hospitalized 04/2022 [facility] x14 days History of psychiatric hospitalization [facility] 06/2022 and 04/2022 Nontoxic multinodular goiter ([facility]) Osteoporosis ([facility]) Parathyroid adenoma Parkinson's disease ([facility]) Spinal stenosis Thyroid nodule ([facility]) Vitamin D deficiency Past Surgical History: Procedure Laterality Date BONE MARROW BIOPSY 07/10/2022 L1 BREAST BIOPSY Right 2003 COLONOSCOPY 2009 FIXATION KYPHOPLASTY LUMBAR SPINE 07/10/2022 Balloon Kyphoplasty w elevation of fracture and cement augmentation of L1 vertebral body HIP FRACTURE SURGERY Left 09/14/2021 HYSTERECTOMY 2005 Total [place] LASER SURGERY OF EYE Right 02/2019 TUBAL LIGATION Bilateral 2001 Family History Problem Relation Name Age of Onset Hypertension Mother Osteoporosis Mother Nephrolithiasis Mother Alzheimer's disease Father Migrated Family History Mental illness Father Other (blader cancer) Brother Heart disease Maternal Grandmother Heart disease Maternal Grandfather Mental illness Paternal Grandmother Heart disease Paternal Grandfather Schizophrenia Nephew Alcohol abuse Neg Hx Drug abuse Neg Hx Social History Tobacco Use Smoking status: Never Smokeless tobacco: Never Substance Use Topics Alcohol use: Not Currently Comment: none, Caffeine intake: none Allergies: Bupropion Vitals: 07/10/24 1515 BP: 118/74 Pulse: (!) 119 SpO2: 96% Body mass index is 16.63 kg/m . weight: 88 lb Neurologic exam: Mental status: Awake, alert to person, place and time. Recent and remote memory are intact. Language is fluent without aphasia. hypophonia Attention and concentration are normal. Fund of knowledge is appropriate for level of education. Cranial nerves: CN II: Visual acuity is normal. Visual georges full to confrontation. CN III, IV, : pupils equal round and reactive to light. Extraocular movements intact. No ptosis present. CN V: Facial sensation is normal. CN VII: Full and symmetric facial movement. Masked facies CN VIII: Hearing is normal to finger rub bilaterally: CN IX and X: Palate elevates symmetrically. CN XI: Shoulder shrug is normal bilaterally. CN XII: Tongue is midline without atrophy or fasciculation. Motor: RUE Strength deltoid, , biceps , triceps , wrist extensors , wrist flexor , sorter operator strength 5/5. LUE Strength deltoid , biceps , triceps , wrist extensors , wrist flexor , sorter operator strength 5/5. RLE Strength illopsoas, quadriceps, tibialis anterior, and gastrocnemius strength 4-/5. LLE Strength illopsoas, quadriceps, tibialis anterior, and gastrocnemius strength 4-/5. Substantial rigidity and bradykinesia bilaterally. Subtle rest tremor. Sensory: Sensation is intact to light touch throughout Four extremities. Reflexes: RUE biceps reflex 1+ brachioradialis reflex 1+ . LUE biceps reflex 1+ brachioradialis reflex 1+ . RLE knee reflex 0 . LLE knee reflex 0 . Mcnamara's sign negative. Coordination: [id number] testing and rapid alternating movements are normal Gait: Wheelchair-bound Review and summary of old records: Patient was previously seen by Neurology in [place], Dr. Delacruz, and his recommendations were as follows:On 03/07/2024 - strongly recommend that the patient get [...] - return to clinic in four months. CT of the brain without contrast on 08/11/2022: No acute intracranial abnormality Assessment/Plan Diagnoses and all orders for this visit: Parkinson's disease without dyskinesia or fluctuating manifestations (CMS/HCC) It is my impression that the patient has Parkinson's disease. This was diagnosed 15 years ago around the age of 53. Given the 15 year history With noted history of onset around 2009 would argue against a parkinsonism such as progressive supranuclear palsy or multi-system atrophy. However, the patient does have quite a few falls that accompany her disease. The patient is on Sinemet IR and CR currently it does appear to be taking a substantial amount of this medication right before bedtime. We will look to make some adjustments here in order to try to help the patient manage these symptoms. Plan: Sinemet IR 25/100 1 tablet p.o. 4 times per day at Two tablets at 6:00 a.m., 2 tablets at 10:00 a.m., 2 tablets at 2:00 p.m. and 1 tablet at 6:00 p.m. Change Sinemet CR to the following: Sinemet CR 25/100 1 tablet p.o. 4 times per day at 6:00 a.m., 10:00 a.m., 2:00 p.m. and 6:00 p.m. previous dosing was 2 tablets p.o. b.I.d. which I do not think is in the patient's best interest as she was freezing during the day. Okay to continue rivastigmine 3 mg p.o. b.I.d. Patient is also on mirtazapine and melatonin at night and we will monitor this. Patient is noted to be on Ativan at night as well and certainly the use of benzodiazepines, although they may be helpful for hallucinations and anxieties, or dangerous in the elderly and could lead to falls. The patient's [id number], Hetal, accompanies the patient to the visit today provides additional history and is agreeable to the plan. We did also discuss that the patient for her relatively younger age is on quite a large dose of carbidopa levodopa. The patient may ultimately be a candidate and need surgical evaluation to see if she is a candidate for treatment with options such as deep brain stimulator. Pt has been fully educated on their diagnosis, lab results, treatment options, follow up plan, return instructions, and discussion of mental health issues documented in this encounter [facility] 05-28-2024 Telephone encounter Note D/w staff [facility] 05-28-2024 Miscellaneous Notes D/w staff Subjective Patient ID: Anne Gregg is a 68 y.o. female, Pt nurse Anne GONZALES from [facility] called stating the pt fell this morning and was taken to [facility], She recently returned to the facility with 3 fractured ribs and the Nurse is requesting a call back for further plan of care at [phone]. documented in this encounter [facility] 05-28-2024 Telephone encounter Note Subjective Patient ID: Anne Gregg is a 68 y.o. female, Pt nurse Anne GONZALES from [facility] called stating the pt fell this morning and was taken to [facility], She recently returned to the facility with 3 fractured ribs and the Nurse is requesting a call back for further plan of care at [phone]. [facility] 05-26-2024 History of Present illness Narrative Images [...] no longer experiencing vomiting. She saw a shipping agent who conducted tests but did not find [...] FRACTURE SURGERY Left 09/14/2021 HYSTERECTOMY 2005 Total [place] LASER SURGERY OF EYE Right 02/2019 TUBAL [...] new symptoms emerge. documented in this encounter [facility] 05-18-2024 History of Present illness Narrative Images [...] FRACTURE SURGERY Left 09/14/2021 HYSTERECTOMY 2005 Total [place] LASER SURGERY OF EYE Right 02/2019 TUBAL [...] and Time Memory/Concentration Short term intact and [facility] intact Insight/Judgement Good OBJECTIVE: Visit Vitals Smoking [...] up 2 months documented in this encounter [facility] 04-03-2024 History of Present illness Narrative Images from the original note were not included. Mirian Gregg is a 68 y.o. female presents for Medication Management. HPI: Patient is here for medication follow up. Here with her sister in law. Patient states mood is terrible. She feels staff at [facility] dont listen to her. Mood depressed about [facility]. Agreed to try to increase. Anxiety is [...] FRACTURE SURGERY Left 09/14/2021 HYSTERECTOMY 2005 Total [place] LASER SURGERY OF EYE Right 02/2019 TUBAL [...] Never Depression: At risk (03/07/2024) Received from [facility] PHQ-2 Total Score: 9 REVIEW OF SYMPTOMS [...] and Person Memory/Concentration Short term intact and joint terminal attack controller intact Insight/Judgement Fair OBJECTIVE: Visit Vitals Smoking [...] F/U 6 weeks documented in this encounter [facility] 03-15-2024 Telephone encounter Note KAUR Torres from [facility] Called to inform you that they will continue HH Therapy 1x per week x8wk [phone] if needed. [facility] 03-15-2024 Miscellaneous Notes KAUR Torres from [facility] Called to inform you that they will continue HH Therapy 1x per week x8wk [phone] if needed. documented in this encounter [facility] 03-08-2024 History of Present illness Narrative Mirian [...] FRACTURE SURGERY Left 09/14/2021 HYSTERECTOMY 2005 Total [place] LASER SURGERY OF EYE Right 02/2019 TUBAL [...] Never Depression: At risk (03/07/2024) Received from [facility] PHQ-2 Total Score: 9 REVIEW OF SYMPTOMS: [...] yet. She has an appointment with a shipping agent next Wednesday and an ERCP scheduled for [...] Relevant Orders Ambulatory referral to Speech Therapy TOOL AND DIE ENGINEER videofluoroscopic swallow study Ambulatory referral to Nutrition [...] bettween meals , swallow study , consult nuclear worker technician and speech therapy Due to severity of symptoms and delays in testing recommend er visit to see if she mets criteria for admission Recheck in 3 days documented in this encounter [facility] 02-23-2024 History of Present illness Narrative Mirian [...] FRACTURE SURGERY Left 09/14/2021 HYSTERECTOMY 2005 Total [place] LASER SURGERY OF EYE Right 02/2019 TUBAL [...] for her food preferences. Order placed for nuclear worker technician c/s on ecf forms 2. Panic attacks. [...] for follow up. documented in this encounter [facility] 02-16-2024 History of Present illness Narrative Mirian [...] She has a scheduled appointment with a shipping agent in May 2023. She still has her [...] FRACTURE SURGERY Left 09/14/2021 HYSTERECTOMY 2005 Total [place] LASER SURGERY OF EYE Right 02/2019 TUBAL [...] 4. Gastroenterology Referral. A referral to a shipping agent in [place] has been arranged to expedite her evaluation, as her current appointment is scheduled for May. Follow-up Return in 1 week for follow up. documented in this encounter [facility] 02-08-2024 Telephone encounter Note Kailey done OT is continuing Kandis rogel from [facility] calling with the update, Order will be faxed over to follow up this call. [facility] 02-08-2024 Miscellaneous Notes Resveronica done 01/20- OT is continuing Kandis rogel from [facility] calling with the update, Order will be faxed over to follow up this call. documented in this encounter [facility] 02-07-2024 Telephone encounter Note Houston from [facility] calling to let you know that he received referral for wheelchair brake extensions and they are unable to take care of this because her wheelchair came from another company. They can do it but it would be out of pocket for patient. [facility] 02-07-2024 Miscellaneous Notes Houston from [facility] calling to let you know that he received referral for wheelchair brake extensions and they are unable to take care of this because her wheelchair came from another company. They can do it but it would be out of pocket for patient. documented in this encounter [facility] 02-01-2024 History of Present illness Narrative Images from the original note were not included. Mirian Gregg is a 68 y.o. female presents with chief complaint of ER Follow-up (Patient presents today for ER follow up. Patient was seen 01/21/24 for Nausea and Vomiting at [facility].) HPI: HPI Flowsheet Row Patient Outreach from 01/27/[address] [facility] with Carolina Maldonado RN Hospital Information Discharged To: -- [returned to the [facility]] Discharge Hospital [facility] Diagnosis nausea and vomiting Discharge Date 01/21/24 [...] FRACTURE SURGERY Left 09/14/2021 HYSTERECTOMY 2005 Total [place] LASER SURGERY OF EYE Right 02/2019 TUBAL [...] Relevant Medications omeprazole (PriLOSEC) [address] capsule Other Relevant Orders Ambulatory referral to Gastroenterology Other Visit Diagnoses Encounter for immunization Relevant Orders Flu vaccine, high dose seasonal, PF (NTL898) (Fluzone High Dose) (Completed) Assessment & Plan 1. Nausea and vomiting. Her weight loss is a concern, potentially linked to her gastrointestinal symptoms. An antacid medication will be initiated to alleviate her symptoms. A referral to Dr. Garner, a shipping agent in [place], has been made for further evaluation. She [...] aggravating her symptoms. Further evaluation by a shipping agent is warranted. 3. Weight loss. Her weight [...] in 2 weeks. 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 Patient was seen Face to Face, Reviewed chart documents and documentation, Visit time : 50min F/U 21/2 months documented in this encounter [facility] 01-24-2024 Telephone encounter Note [facility] Pt is having difficulty engaging brakes on wheelchair. Nurse is requesting a rx for brake extenstions, and fax to [facility] Fax- [phone] [facility] 01-24-2024 Miscellaneous Notes [facility] Pt is having difficulty engaging brakes on wheelchair. Nurse is requesting a rx for brake extenstions, and fax to [facility] Fax- [phone] documented in this encounter [facility] 01-19-2024 Telephone encounter Note LAWRENCE Torres, PT of [facility] calling, Going to [facility] for home health 1 per wk x 9 weeks Pt had a fall in the br when transfering and got assistance from staff, states she is not injured. [phone] [facility] 01-19-2024 Miscellaneous Notes LAWRENCE Torres PT of [facility] calling, Going to [facility] for [facility] 1 per wk x 9 weeks Pt had a fall in the br when transfering and got assistance from staff, states she is not injured. [phone] documented in this encounter [facility] 07-01-2023 Telephone encounter [facility], is questioning if you want her started off with 10mg and then go up? Her call back is [phone]. Thank you! [facility] 07-01-2023 Miscellaneous Notes PC from [facility] received Rx for Baclofen 20mg, is questioning if you want her started off with 10mg and then go up? Her call back is [phone]. Thank you! documented in this encounter [facility] 07-01-2023 History of Present illness Narrative Mirian [...] HISTORY: Past Medical History: Diagnosis Date Depression ([facility]) Endometrial cancer ([facility]) 2004 History of being hospitalized 08/2022 [facility] x12 days History of being hospitalized 04/2022 [facility] x14 days History of psychiatric hospitalization [facility] 06/2022 and 04/2022 Nontoxic multinodular goiter ([facility]) Osteoporosis ([facility]) Parathyroid adenoma Parkinson's disease Spinal stenosis Thyroid nodule ([facility]) Vitamin D deficiency Social History Tobacco Use [...] FRACTURE SURGERY Left 09/14/2021 HYSTERECTOMY 2005 Total [place] LASER SURGERY OF EYE Right 02/2019 TUBAL [...] follow-ups on file. 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 Evaluation note Diagnosis Secondary parkinsonism, unspecified secondary Parkinsonism type ([facility]/HCC)- Primary Dystonia Abnormal involuntary movements Muscle cramping [facility] Diagnosis Chronic gastritis without bleeding, unspecified gastritis type- Primary Urinary incontinence, unspecified type Weight loss Loss of weight Hematuria, unspecified type [facility] Diagnosis Acute cystitis without hematuria- Primary Weight loss Loss of weight Panic attack ([facility]) Panic disorder without agoraphobia Generalized anxiety disorder ([facility]/HCC) Generalized anxiety disorder Adjustment disorder with anxious mood ([facility]) Adjustment disorder with anxiety Open-angle glaucoma, mild stage, unspecified laterality, unspecified open-angle glaucoma type ([facility]) Major depressive disorder, single episode, moderate (HCC) ([facility]) Major depressive disorder, single episode, moderate [facility] Diagnosis Abnormal gallbladder ultrasound- Primary Abdominal pain with vomiting Weight loss Loss of weight [facility] Diagnosis Oropharyngeal dysphagia- Primary Dysphagia, oropharyngeal phase Weight loss Loss of weight [facility] Diagnosis Recurrent major depressive disorder, in partial remission (HCC) ([facility])- Primary Generalized anxiety disorder ([facility] [facility]) Generalized anxiety disorder Insomnia, unspecified type documented in this encounter [facility]* Diagnosis Chronic gastritis without bleeding, unspecified gastritis type- Primary Encounter for immunization documented in this encounter [facility]* Diagnosis Generalized anxiety disorder ([facility]/HCC) Generalized anxiety disorder Insomnia, unspecified type documented in this encounter [facility]* Diagnosis Generalized anxiety disorder ([facility]/HCC) Generalized anxiety disorder Moderate episode of recurrent major depressive disorder ([facility]) Panic disorder with agoraphobia ([facility] Agoraphobia with panic disorder documented in this encounter [facility]* Diagnosis Parkinson's disease without dyskinesia or fluctuating manifestations ([facility])- Primary Major depressive disorder, recurrent, severe with psychotic symptoms ([facility]) ([facility]/HCC) Malignant neoplasm of endometrium ([facility]/HCC) Malignant neoplasm of corpus uteri, except isthmus Unspecified dementia, unspecified severity, without behavioral disturbance, psychotic disturbance, mood disturbance, and anxiety ([facility]) Neuropathy Mononeuritis of unspecified site documented in this encounter [facility]* Diagnosis Moderate episode of recurrent major depressive disorder ([facility]HCC) Panic disorder with agoraphobia ([facility]) Agoraphobia with panic disorder Generalized anxiety disorder ([facility]) Generalized anxiety disorder documented in this encounter [facility]* Diagnosis Parkinson's disease without dyskinesia or fluctuating manifestations ([facility]) documented in this encounter [facility]* Diagnosis Moderate episode of recurrent major depressive disorder ([facility]/HCC) Generalized anxiety disorder ([facility]HCC) Generalized anxiety disorder Panic disorder with agoraphobia ([facility]) Agoraphobia with panic disorder documented in this encounter [facility]* Diagnosis Generalized anxiety disorder ([facility]CC) Generalized anxiety disorder Recurrent major depressive disorder, in partial remission (HCC) ([facility]) Panic disorder with agoraphobia ([facility]) Agoraphobia with panic disorder Insomnia, unspecified type documented in this encounter [facility]* Diagnosis Weight loss- Primary Loss of weight Recurrent major depressive disorder, in partial remission (HCC) ([facility]) Age-related osteoporosis with current pathological fracture, initial encounter ([facility]) Current mild episode of major depressive disorder without prior episode (HCC) ([facility]) Parkinson's disease with fluctuating manifestations, unspecified whether dyskinesia present ([facility]) documented in this encounter [facility]* Diagnosis Parkinson's disease without dyskinesia, unspecified whether manifestations fluctuate ([facility])- Primary documented in this encounter [facility]* Diagnosis Parkinson's disease without dyskinesia, unspecified whether manifestations fluctuate ([facility])- Primary documented in this encounter [facility]* Diagnosis Parkinson's disease without dyskinesia, unspecified whether manifestations fluctuate ([facility]HCC)- Primary documented in this encounter [facility] (narrative)* Consultation (Routine) - Pending Review Specialty Diagnoses / Procedures Referred By Contalexus t Referred To Contact Pain Medicine Diagnoses Secondary parkinsonism, unspecified secondary Parkinsonism type ([facility]) Dystonia Muscle cramping Procedures OK OFFICE/OUTPATIENT NEW HIGH [facility] 60 MINUTES Saira Weston NP [address] [place] [address] Unallocated, Noms Provider [address] [place] [address] Referral ID Status Reason Start Date Expiration Date Visits Requested Visits Authorized [id number] Pending Review Specialty Services Required 07/01/2023 12/28/2023 1 1 MADONNA Hardnig for referral (narrative)* Consultation (Routine) - Pending Review Specialty Diagnoses / Procedures Referred By Contac t Referred To Contact Gastroenterology Diagnoses Chronic gastritis without bleeding, unspecified gastritis type Procedures OK OFFICE/OUTPATIENT NEW HIGH [facility] 60 MINUTES Shea Vogel MD [address] [place] [address] Joshua Muhammad MD [address] [place] [address] Referral ID Status Reason Start Date Expiration Date Visits Requested Visits Authorized [id number] Pending Review Specialty Services Required 02/16/2024 08/14/2024 1 1 MADONNA Harding for referral (narrative)* Consultation (Routine) - Pending Review Specialty Diagnoses / Procedures Referred By Contac t Referred To Contact Gastroenterology Diagnoses Chronic gastritis without bleeding, unspecified gastritis type Procedures OK OFFICE/OUTPATIENT NEW HIGH [facility] 60 MINUTES Shea Vogel MD [address] [place] [address] Karina Vásquez DO [address] [place] [id number] Referral ID Status Reason Start Date Expiration Date Visits Requested Visits Authorized [id number] Pending Review Specialty Services Required 02/01/2024 07/30/2024 1 1 [facility] Narrative* Consultation (Routine) - Closed Specialty Diagnoses / Procedures Referred By Navdeep hoskins Referred To Contact Neurology Diagnoses Parkinson's disease without dyskinesia or fluctuating manifestations (CMS/HCC) Procedures OK OFFICE/OUTPATIENT NEW HIGH [facility] 60 MINUTES Shea Vogel MD [address] [place] [address] Phone: tel: fax: Manuel Culver MD [address] [place] [address] Phone: tel: fax: Referral ID Status Reason Start Date Expiration Date V isits Requested Visits Authorized [id number] Closed Consult and Treat 05/26/2024 11/22/2024 1 1 [facility] Summary Purpose Family History No Family History Records FoundNo Family History Records FoundNo Family History Records FoundNo Family History Records FoundNo Family History Records FoundNo Family History Records Found Advance Directives No Advanced Directives Records FoundNo Advanced Directives Records FoundNo Advanced Directives Records FoundNo Advanced Directives Records FoundNo Advanced Directives Records FoundNo Advanced Directives Records Found Reason for Referral Specialty Diagnoses / Procedures Referred By Navdeep hoskins Referred To Contact Diagnoses Abnormal gallbladder ultrasound Abdominal pain with vomiting Weight loss Procedures MR abdomen w contrast MRCP Shea Vogel MD [address] [place] [address] [facility] Referral ID Status Reason Start Date Expiration Date V isits Requested Visits Authorized [id number] Pending Review 02/23/2024 08/21/2024 1 1 Additional Source Comments INFORMATION SOURCE (unrecogn ized section and content) DATE CREATED AUTHOR 11/10/2017 [facility] DATE CREATED AUTHOR AUTHOR'S ORGANIZ ATION 02/16/2022 [facility] dical Specialist DATE CREATED AUTHOR AUTHOR'S ORGANIZ ATION 08/31/2022 [facility] DATE CREATED AUTHOR AUTHOR'S ORGANIZ ATION 03/17/2024 [facility] DATE CREATED AUTHOR AUTHOR'S ORGANIZ ATION 03/27/2024 [facility] DATE CREATED AUTHOR AUTHOR'S ORGANIZ ATION 09/13/2024 [facility] dical Specialists EPIC Care Teams (unrecognized sec tion and content) Counselor Dormitory Relationship Specialty Start Date End Date hSea Vogel MD [address] [place] [address] PCP - General Family Medicine 10/05/22 Saira Weston, GASOLINE TRUCK CRANE OPERATOR [address] [facility] [place] [address] PCP - ACO Reach 10/08/22 Saira Weston, GASOLINE TRUCK CRANE OPERATOR [address] [facility] [place] [address] Nurse Practitioner Family Medicine 10/05/22 Counselor Dormitory Relationship Specialty Start Date End Date Shea Vogel MD [address] [facility] [place] [address] PCP - General Family Medicine 10/05/22 Saira Weston, GASOLINE TRUCK CRANE OPERATOR [address] [place] [address] PCP - ACO Reach 10/08/22 Saira Weston, GASOLINE TRUCK CRANE OPERATOR [address] [place] [address] Nurse Practitioner Family Medicine 10/05/22 Counselor Dormitory Relationship Specialty Start Date End Date Shea Vogel MD [address] [facility] [place] [address] PCP - General Family Medicine 10/05/22 Saira Weston, GASOLINE TRUCK CRANE OPERATOR [address] [place] [address] PCP - ACO Reach 10/08/22 Saira Weston, GASOLINE TRUCK CRANE OPERATOR [address] [place] [address] Nurse Practitioner Family Medicine 10/05/22 Counselor Dormitory Relationship Specialty Start Date End Date Shea Vogel MD [address] [place] [address] PCP - General Family Medicine 10/05/22 Shea Vogel MD [address] [place] [address] PCP - ACO Reach 07/16/23 Saira Weston NP [address] [place] [address] Nurse Practitioner Family Medicine 10/05/22 Counselor Dormitory Relationship Specialty Start Date End Date Shea Vogel MD [address] [place] [address] PCP - General Family Medicine 10/05/22 Shea Vogel MD [address] [place] [address] PCP - ACO Reach 07/16/23 Saira Weston NP [address] [place] [address] Nurse Practitioner Family Medicine 10/05/22 Counselor Dormitory Relationship Specialty Start Date End Date Shea Vogel MD [address] [place] [address] PCP - General Family Medicine 10/05/22 Shea Vogel MD [address] [place] [address] PCP - ACO Reach 07/16/23 Saira Weston, GASOLINE TRUCK CRANE OPERATOR [address] [place] [address] Nurse Practitioner Family Medicine 10/05/22 Counselor Dormitory Relationship Specialty Start Date End Date Shea Vogel MD [address] [place] [address] PCP - General Family Medicine 10/05/22 Shea Vogel MD [address] [place] [address] PCP - ACO Reach 07/16/23 Saira Weston NP [address] [place] [address] Nurse Practitioner Family Medicine 10/05/22 Counselor Dormitory Relationship Specialty Start Date End Date Shea Vogel MD [address] [place] [address] PCP - General Family Medicine 10/05/22 Seha Vogel MD [address] [place] [address] PCP - ACO Reach 07/16/23 Saira Weston NP [address] [place] [address] Nurse Practitioner Family Medicine 10/05/22 Counselor Dormitory Relationship Specialty Start Date End Date Shea Vogel MD [address] [place] [address] PCP - General Family Medicine 10/05/22 Shea Vogel MD [address] [place] [address] PCP - ACO Reach 07/16/23 Saira Weston, FADY [address] [place] [address] Nurse Practitioner Family Medicine 10/05/22 Counselor Dormitory Relationship Specialty Start Date End Date Shea Vogel MD [address] [place] [address] PCP - General Family Medicine 10/05/22 Shea Vogel MD [address] [place] [address] PCP - ACO Reach 07/16/23 Saira Weston NP [address] [place] [address] Nurse Practitioner Family Medicine 10/05/22 Counselor Dormitory Relationship Specialty Start Date End Date Shea Vogel MD [address] [place] [address] PCP - General Family Medicine 10/05/22 Shea Vogel MD [address] [place] [address] PCP - ACO Reach 07/16/23 Saira Weston NP [address] [place] [address] Nurse Practitioner Family Medicine 10/05/22 Counselor Dormitory Relationship Specialty Start Date End Date Shea Vogel MD [address] [place] [address] PCP - General Family Medicine 10/05/22 Shea Vogel MD [address] [place] [address] PCP - ACO Reach 07/16/23 Saria Weston, GASOLINE TRUCK CRANE OPERATOR [address] [place] [address] Nurse Practitioner Family Medicine 10/05/22 Counselor Dormitory Relationship Specialty Start Date End Date Shea Vogel MD [address] [place] [address] PCP - General Family Medicine 10/05/22 Shea Vogel MD [address] [place] [address] PCP - ACO Reach 07/16/23 Saira Weston NP [address] [place] [address] Nurse Practitioner Family Medicine 10/05/22 Counselor Dormitory Relationship Specialty Start Date End Date Shea Vogel MD [address] [place] [address] PCP - General Family Medicine 10/05/22 Shea Vogel MD [address] [place] [address] PCP - ACO Reach 07/16/23 Saira Weston, FADY [address] [place] [address] Nurse Practitioner Family Medicine 10/05/22 Counselor Dormitory Relationship Specialty Start Date End Date Shea Vogel MD [address] [place] [address] PCP - General Family Medicine 10/05/22 Shea Vogel MD [address] [place] [address] PCP - ACO Reach 07/16/23 Saira Weston, GASOLINE TRUCK CRANE OPERATOR [address] [place] [address] Nurse Practitioner Family Medicine 10/05/22 Counselor Dormitory Relationship Specialty Start Date End Date Shea Vogel MD [address] [place] [address] PCP - General Family Medicine 10/05/22 Shea Vogel MD [address] [place] [address] PCP - ACO Reach 07/16/23 Saira Weston, GASOLINE TRUCK CRANE OPERATOR [address] [place] [address] Nurse Practitioner Family Medicine 10/05/22 Counselor Dormitory Relationship Specialty Start Date End Date Shea Vogel MD [address] [place] [address] PCP - General Family Medicine 10/05/22 Shea Vogel MD [address] [place] [address] PCP - ACO Reach 07/16/23 Saira Weston NP [address] [place] [address] Nurse Practitioner Family Medicine 10/05/22 Counselor Dormitory Relationship Specialty Start Date End Date Shea Vogel MD [address] [place] [address] PCP - General Family Medicine 10/05/22 Shea Vogel MD [address] [place] [address] PCP - ACO Reach 07/16/23 Saira Weston, GASOLINE TRUCK CRANE OPERATOR [address] [place] [address] Nurse Practitioner Family Medicine 10/05/22 Counselor Dormitory Relationship Specialty Start Date End Date Shea Vogel MD [address] [place] [address] PCP - General Family Medicine 10/05/22 Shea Vogel MD [address] [place] [address] PCP - ACO Reach 07/16/23 Saira Weston NP [address] [place] [address] Nurse Practitioner Family Medicine 10/05/22 Counselor Dormitory Relationship Specialty Start Date End Date Shea Vogel MD [address] [place] [address] PCP - General Family Medicine 10/05/22 Shea Vogel MD [address] [place] [address] PCP - ACO Reach 07/16/23 Saira Weston NP [address] [place] [address] Nurse Practitioner Family Medicine 10/05/22 Counselor Dormitory Relationship Specialty Start Date End Date Shea Vogel MD [address] [place] [address] PCP - General Family Medicine 10/05/22 Shea Vogel MD [address] [place] [address] PCP - ACO Reach 07/16/23 Saira Weston, GASOLINE TRUCK CRANE OPERATOR [address] [facility] [place] [address] Nurse Practitioner Family Medicine 10/05/22 Shashi Servin, UNIX DEVELOPER-LARRY CAR OPERATOR [address] [facility] [address] [place] [address] Nurse Practitioner Psychiatry 06/01/24 Counselor Dormitory Relationship Specialty Start Date End Date Shea Vogel MD [address] [facility] [place] [address] PCP - General Family Medicine 10/05/22 Shea Vogel MD [address] [facility] [place] [address] PCP - ACO Reach 07/16/23 Saira Weston, GASOLINE TRUCK CRANE OPERATOR [address] [facility] [place] [address] Nurse Practitioner Family Medicine 10/05/22 Shashi Servin, UNIX DEVELOPER-LARRY CAR OPERATOR 112 [facility] [address] [place] [address] Nurse Practitioner Psychiatry 06/01/24 Counselor Dormitory Relationship Specialty Start Date End Date Shea Vogel MD [address] [facility] [place] [address] PCP - General Family Medicine 10/05/22 Shea Vogel MD [address] [facility] [place] [address] PCP - ACO Reach 07/16/23 Saira Weston, GASOLINE TRUCK CRANE OPERATOR [address] [facility] [place] [address] Nurse Practitioner Family Medicine 10/05/22 Shashi Servin UNIX DEVELOPER-LARRY CAR OPERATOR [address] [address] Nurse Practitioner Psychiatry 06/01/24 Foreign Gonzales LPC Mobile Application Developer Behavioral Health 07/07/24 Counselor Dormitory Relationship Specialty Start Date End Date Shea Vogel MD [address] [place] [address] PCP - General Family Medicine 10/05/22 Shea Vogel MD [address] [place] [address] PCP - ACO Reach 07/16/23 Saira Weston, GASOLINE TRUCK CRANE OPERATOR [address] [facility] [place] [address] Nurse Practitioner Family Medicine 10/05/22 Shashi Servin, UNIX DEVELOPER-LARRY CAR OPERATOR [address] [place] [address] Nurse Practitioner Psychiatry 06/01/24 Foreign Gonzales LPC Mobile Application Developer Behavioral Health 07/07/24 Counselor Dormitory Relationship Specialty Start Date End Date Shea Vogel MD [address] [facility] [place] [address] PCP - General Family Medicine 10/05/22 Shea Vogel MD [address] [facility] [place] [address] PCP - ACO Reach 07/16/23 Saira Weston, GASOLINE TRUCK CRANE OPERATOR [address] [facility] [place] [address] Nurse Practitioner Family Medicine 10/05/22 Shashi Servin, UNIX DEVELOPER-LARRY CAR OPERATOR 112 [facility] [address] [place] [address] Nurse Practitioner Psychiatry 06/01/24 Foreign Gonzales LPC Mobile Application Developer Behavioral Health 07/07/24 Counselor Dormitory Relationship Specialty Start Date End Date Shea Vogel MD [address] [facility] [place] [address] PCP - General Family Medicine 10/05/22 Shea Vogel MD [address] [facility] [place] [address] PCP - ACO Reach 07/16/23 Saira eWston, GASOLINE TRUCK CRANE OPERATOR [address] [facility] [place] [address] Nurse Practitioner Family Medicine 10/05/22 Shashi Servin UNIX DEVELOPER-LARRY CAR OPERATOR 112 [facility] [address] [place] [address] Nurse Practitioner Psychiatry 06/01/24 Foreign Gonzales LPC Mobile Application Developer Behavioral Health 07/07/24 Counselor Dormitory Relationship Specialty Start Date End Date Shea Vogel MD [address] [facility] [place] [address] PCP - General Family Medicine 10/05/22 Shea Vogel MD [address] [facility] [place] [address] PCP - ACO Reach 07/16/23 Saira Weston, GASOLINE TRUCK CRANE OPERATOR [address] [facility] [place] [address] Nurse Practitioner Family Medicine 10/05/22 Shashi Servin, UNIX DEVELOPER-LARRY CAR OPERATOR [address] [place] [address] [place] [address] Nurse Practitioner Psychiatry 06/01/24 Foreign Gonzales LPC Mobile Application Developer Behavioral Health 07/07/24 Counselor Dormitory Relationship Specialty Start Date End Date Shea Vogel MD [address] [facility] [place] [address] PCP - General Family Medicine 10/05/22 Shea Vogel MD [address] [facility] [place] [address] PCP - ACO Reach 07/16/23 Saira Weston, GASOLINE TRUCK CRANE OPERATOR [address] [facility] [place] [address] Nurse Practitioner Family Medicine 10/05/22 Shashi Servin, UNIX DEVELOPER-LARRY CAR OPERATOR [address] [place] [address] [place] [address] Nurse Practitioner Psychiatry 06/01/24 Foreign Gonzales LPC Mobile Application Developer Behavioral Health 07/07/24 Counselor Dormitory Relationship Specialty Start Date End Date Shea Vogel MD [address] [facility] [place] [address] PCP - General Family Medicine 10/05/22 Shea Vogel MD [address] [place] [address] PCP - ACO Reach 07/16/23 Saira Weston, GASOLINE TRUCK CRANE OPERATOR [address] [place] [place] [address] Nurse Practitioner Family Medicine 10/05/22 Shashi Servin, UNIX DEVELOPER-LARRY CAR OPERATOR [address] [facility] [address] [place] [address] Nurse Practitioner Psychiatry 06/01/24 Foreign Gonzales LPC Mobile Application Developer Behavioral Health 07/07/24 Sue Rosas NP [address] [place] [phone] Nurse Practitioner Neurology 08/08/24 Master Alexander DO [address] [place] [address] Referring Physician Neurology 08/08/24 Counselor Dormitory Relationship Specialty Start Date End Date Shea Vogel MD [address] [place] [address] PCP - General Family Medicine 10/05/22 Shea Vogel MD [address] [facility] [place] [address] PCP - ACO Reach 07/16/23 Saira Weston, GASOLINE TRUCK CRANE OPERATOR [address] [place] [address] Nurse Practitioner Family Medicine 10/05/22 Shashi Servin, UNIX DEVELOPER-LARRY CAR OPERATOR [address] [facility] [address] [place] [address] Nurse Practitioner Psychiatry 06/01/24 Foreign Gonzales LPC Mobile Application Developer Behavioral Health 07/07/24 Sue Rosas, FADY [address] [phone] Nurse Practitioner Neurology 08/08/24 Master Alexander DO [address] [place] [phone] Referring Physician Neurology 08/08/24 Counselor Dormitory Relationship Specialty Start Date End Date Shea Vogel MD [address] [place] [address] PCP - General Family Medicine 10/05/22 Shea Vogel MD [address] [place] [address] PCP - ACO Reach 07/16/23 Saira Weston NP [address] [place] [address] Nurse Practitioner Family Medicine 10/05/22 Shashi Servin APRN-LARRY CAR OPERATOR [address] [address] Nurse Practitioner Psychiatry 06/01/24 Foreign Gonzales LPC Mobile Application Developer Behavioral Health 07/07/24 Sue Rosas NP [address] [place] [phone] Nurse Practitioner Neurology 08/08/24 Master Alexander DO [address] [place] [id number] Referring Physician Neurology 08/08/24 Counselor Dormitory Relationship Specialty Start Date End Date Shea Vogel MD [address] [facility] [place] [address] PCP - General Family Medicine 10/05/22 Shea Vogel MD [address] [place] [address] PCP - ACO Reach 07/16/23 Saira Weston, GASOLINE TRUCK CRANE OPERATOR [address] [facility] [place] [address] Nurse Practitioner Family Medicine 10/05/22 Shashi Servin APRN-LARRY CAR OPERATOR [address] [place] [address] Nurse Practitioner Psychiatry 06/01/24 Foreign Gonzales LPC Mobile Application Developer Behavioral Health 07/07/24 Sue Rosas NP [address] [place], [place] [phone] Nurse Practitioner Neurology 08/08/24 Master Alexander DO [address] [address] Referring Physician Neurology 08/08/24 Counselor Dormitory Relationship Specialty Start Date End Date Shea Vogel MD [address] [facility] [place] [address] PCP - General Family Medicine 10/05/22 Shea Vogel MD [address] [place] [address] PCP - ACO Reach 07/16/23 Saira Weston, GASOLINE TRUCK CRANE OPERATOR [address] [place] [address] Nurse Practitioner Family Medicine 10/05/22 Shashi Servin UNIX DEVELOPER-LARRY CAR OPERATOR [address] [place] [address] Nurse Practitioner Psychiatry 06/01/24 Foreign Gonzales LPC Mobile Application Developer Behavioral Health 07/07/24 Sue Rosas, GASOLINE TRUCK CRANE OPERATOR [address] [phone] Nurse Practitioner Neurology 08/08/24 Master Alexander DO [address] [id number] Referring Physician Neurology 08/08/24 Counselor Dormitory Relationship Specialty Start Date End Date Shea Vogel MD [address] [place] [address] PCP - General Family Medicine 10/05/22 Shea Vogel MD [address] [place] [address] PCP - ACO Reach 07/16/23 Saira Weston GASOLINE TRUCK CRANE OPERATOR [address] [place] [address] Nurse Practitioner Family Medicine 10/05/22 Shashi Servin UNIX DEVELOPER-LARRY CAR OPERATOR [address] [place] [address] Nurse Practitioner Psychiatry 06/01/24 Foriegn Gonzales LPC Mobile Application Developer Behavioral Health 07/07/24 Sue Rosas, GASOLINE TRUCK CRANE OPERATOR [address] [phone] Nurse Practitioner Neurology 08/08/24 Master Alexander DO [address] [address] Referring Physician Neurology 08/08/24 Counselor Dormitory Relationship Specialty Start Date End Date Shea Vogel MD [address] [place], [place] [id number] PCP - General Family Medicine 10/05/22 Shea Vogel MD [address] [place] [address] PCP - ACO Reach 07/16/23 Saira Weston NP [address] [place] [address] Nurse Practitioner Family Medicine 10/05/22 Shashi Servin, UNIX DEVELOPER-LARRY CAR OPERATOR [address] [facility] [address] [place] [address] Nurse Practitioner Psychiatry 06/01/24 Foreign Gonzales LPC Mobile Application Developer Behavioral Health 07/07/24 Sue Rosas NP [address] [phone] Nurse Practitioner Neurology 08/08/24 Master Alexander DO [address] [address] Referring Physician Neurology 08/08/24 Reason for Visit (unrecogniz ed section and content) Reason Comments Pain Reason Onset Date Comments Medication Question 07/01/2023 Reason Comments Vomiting Patient presents tod ay for vomiting/dry heaving. Patient states that this has been ongoing for months. Patient states that the vomit is yellow, clear, and sticky. Reason Comments Follow-up Patient presents tod ay for 1 week follow up on weight loss/stomach issues. Reason Comments Follow-up Patient presents tod ay for 2 week follow up. Reason Comments Med Management Follow-up Reason Comments ER Follow-up Patient presents tod ay for ER follow up. Patient was seen 01/21/24 for Nausea and Vomiting at [facility]. Reason Comments Follow-up Patient presents tod ay for 3 month follow up. Reason Onset Date Comments Other 05/28/2024 weight caller Reason Comments Anxiety Depression Panic Attack Specialty Diagnoses / Procedures Referred By Contact Referred To Contact Behavioral Health Diagnoses Counseling Procedures Counseling Shashi Servin, UNIX DEVELOPER-LARRY CAR OPERATOR 112 [facility] [address] [place] [address] Phone: tel: fax: [facility] 112 [facility] [address] [place] [address] Phone: tel: fax: Referral ID Status Reason Start Date Expiration Date Visits Re quested Visits Authorized [id number] Closed 05/18/2024 11/14/2024 1 1 Reason Comments Depression Anxiety Panic Attack Reason Comments Med Management Follow-up Reason Comments Follow-up 3 month follow up. Altered Mental Status Hallucinations Reason Onset Date Comments med questions 08/22/2024 Reason Comments Parkinson's Disease Reason Comments Parkinson's Disease FOR RECORDS PERTAINING TO PATIENTS WHO ARE [...] BE BASED ON THE PRIMARY CLINICAL RECORDS. [employer] provides no warranty or guarantee of the accuracy or completeness of information in this document.
--- NOTE | 2024-09-25 13:49 | CM.DCFOLLOWU ---
Returned to [facility]
== END 2024-09-22 17:00 | disposition home health service (06) ==
LOC: ER 18:22 → MS 21:22
PROVIDERS: Physician Assistant; Registered Nurse; Admitting Provider Internal Medicine; Emergency Provider Emergency Medicine; PCP Family Medicine; Visit Provider Internal Medicine
DX: E87.6 Hypokalemia (principal); E86.0 Dehydration; N17.9 Acute kidney failure, unspecified; K52.9 Noninfective gastroenteritis and colitis, unspecified; Z90.710 Acquired absence of both cervix and uterus; E43 Unspecified severe protein-calorie malnutrition; Z68.1 Body mass index [BMI] 19.9 or less, adult; F41.8 Other specified anxiety disorders; G20.B2 Parkinson's disease with dyskinesia, with fluctuations; R64 Cachexia; S31.829A Unspecified open wound of left buttock, initial encounter
CPT/HCPCS: 36415; 74177; 80048; 80053; 81001; 83605; 83690; 83735; 85007; 85025; 85027; 85610; 87493; 96361; 96365; 96366; 96368; 96375; 97161; 97530; 99285; G0378; J2405; J3475; J3480; Q9967

== ENCOUNTER 2024-09-27 13:45 | Observation (INO) | payer MEDICARE, OTHER, SELFPAY ==
--- NOTE | 2024-09-27 13:52 | ED.GENADUL1 ---
HPI HPI - General Adult General Chief complaint: Altered Mental Status Stated complaint: CONFUSION Time Seen by Provider: 09/27/24 13:48 History of Present Illness HPI narrative: 68-year-old female presents from [facility] for not eating and possible UTI. She is a poor historian, she does not know the year or exactly where she is. She was transported here by paramedics and no further history is obtainable from her. Related Data Home Medications ?Medication ?Instructions ?Recorded ?Confirmed brimonidine 0.2 % eye drops 1 drp ophthalmic (eye) TID 01/27/23 09/21/24 melatonin 5 mg tablet 5 mg PO BEDTIME sleep 01/27/23 09/21/24 omeprazole 40 mg capsule,delayed 40 mg PO QAM 01/27/23 09/21/24 release timolol maleate 0.5 % eye drops 1 drp ophthalmic (eye) QAM 01/27/23 09/21/24 loperamide 2 mg capsule 2 mg PO Q6H PRN loose stool 01/28/23 09/21/24 (Anti-Diarrheal (loperamide)) baclofen 10 mg tablet 10 mg PO DAILY PRN muscle spasm 09/07/23 09/21/24 psyllium husk 3.4 gram/5.4 gram 1 tbsp PO QPM 09/07/23 09/21/24 oral powder (Metamucil) sertraline 50 mg tablet 200 mg PO DAILY 09/07/23 09/21/24 baclofen 20 mg tablet 20 mg PO BEDTIME 05/28/24 05/28/24 cholecalciferol (vitamin D3) 25 1,000 unit PO DAILY 05/28/24 09/21/24 mcg (1,000 unit) capsule (Vitamin D3) hydroxyzine HCl 25 mg tablet 25 mg PO Q6H PRN anxiety 05/28/24 09/21/24 lorazepam 0.5 mg tablet 0.25 mg PO Q12H PRN anxiety 05/28/24 09/21/24 megestrol 40 mg tablet 80 mg PO DAILY 05/28/24 09/21/24 mirtazapine 30 mg tablet 30 mg PO BEDTIME 05/28/24 09/21/24 ondansetron HCl 4 mg tablet 4 mg PO Q8H PRN nausea and vomiting 05/28/24 09/21/24 potassium chloride 20 mEq/15 mL 20 meq PO BID 05/28/24 09/21/24 oral liquid rivastigmine tartrate 3 mg capsule 3 mg PO BID 05/28/24 09/21/24 acetaminophen 325 mg capsule 650 mg PO Q6H PRN pain 09/21/24 09/21/24 calcium carbonate (Tums) 650 mg PO TID indigestion 09/21/24 09/21/24 carbidopa 25 mg-levodopa 100 mg 3 tab PO TID 09/21/24 09/21/24 tablet carbidopa 25 mg-levodopa 100 mg 2 tab PO DAILY 09/21/24 09/21/24 tablet (Sinemet) entacapone 200 mg tablet 200 mg PO QAM 09/21/24 09/21/24 ibandronate 150 mg tablet 150 mg PO .[id number] 09/21/24 09/21/24 Previous Rx's ?Medication ?Instructions ?Recorded cephalexin 500 mg capsule 500 mg PO TID 7 days #21 caps 09/27/24 Allergies Allergy/AdvReac Type Severity Reaction Status Date / Time bupropion (From Wellbutrin) Allergy Unknown Verified 09/27/24 14:01 Opioid HPI Opioid Management Most Recent Opioid Data: Last Pain Scale 10 05/28/24, 13:10 Last Pain Assessment 09/21/24, 20:00 Last ORT Total Score 0 09/21/24, 19:48 Last ORT Risk Category Low Risk 09/21/24, 19:48 Review of Systems ROS Narrative A ten point review of systems is negative except as noted above. [facility] Medical History (Updated 09/27/24 @ 18:49 by Henry Sullivan MD) MDD (major depressive disorder) ?F32.9 - Major depressive disorder, single episode, unspecified (ICD-10) Anxiety ?F41.9 - Anxiety disorder, unspecified (ICD-10) Peripheral neuropathy ?G62.9 - Polyneuropathy, unspecified (ICD-10) Acute hypokalemia ?E87.6 - Hypokalemia (ICD-10) Fall ?W19.XXXA - Unspecified fall, initial encounter (ICD-10) Closed sacral fracture ?S32.10XA - Unspecified fracture of sacrum, initial encounter for closed fracture (ICD-10) Protein calorie malnutrition ?E46 - Unspecified protein-calorie malnutrition (ICD-10) Weakness ?R53.1 - Weakness (ICD-10) Osteoporosis ?M81.0 - Age-related osteoporosis without current pathological fracture (ICD-10) Glaucoma ?H40.9 - Unspecified glaucoma (ICD-10) Depression with anxiety ?F41.8 - Other specified anxiety disorders (ICD-10) GERD (gastroesophageal reflux disease) ?K21.9 - Gastro-esophageal reflux disease without esophagitis (ICD-10) Difficulty in walking ?R26.2 - Difficulty in walking, not elsewhere classified (ICD-10) Parkinson disease ?G20.A1 - Parkinson's disease without dyskinesia, without mention of fluctuations (ICD-10) Abdominal pain ?R10.9 - Unspecified abdominal pain (ICD-10) Surgical History H/O: hysterectomy ?Z90.710 - Acquired absence of both cervix and uterus (ICD-10) Family History Brother Family history of cancer Grandmother Family history of hypertension Family history of stroke Social History Within the past year, how often did you have a drink containing alcohol: never Score interpretation: A score less than 3 is consistent with normal alcohol consumption. Smoking status: Never smoker Non-prescribed substance use: denies use Previous occupational history: retired Known occupational exposures/hazards: No Highest level of school completed/degree received: high school graduate Are you now , , , , never or living with a partner: In a typical week, how many times do you talk on the telephone with family, friends, or neighbors: twice per week How often do you get together with friends or relatives: never How often do you attend mormonism or mandaeism services: never Do you belong to any clubs or organizations such as mormonism groups unions, fraternal or athletic groups, or school groups: yes Total score: 2 Score interpretation: A score of greater than or equal to 2 indicates the lowest level of social isolation. Little interest or pleasure in doing things: not at all Feeling down, depressed, or hopeless: not at all Feel stressed/tense/nervous/anxious/difficulty sleeping: not at all Life stressors: other Life stressor details: prefer not to say Do you think of yourself as: straight/heterosexual Gender Identity: female Exam Narrative Exam Narrative: Nurses note and vital signs reviewed and patient is not hypoxic. General: The patient is diminutive and in no acute distress. Her neck is flexed. Skin: Warm, dry, no pallor noted. There is no rash noted. Head: Normocephalic, atraumatic Eye: Normal conjunctiva, no drainage Ears, Nose, Mouth, and Throat: oral mucosa is moist. Nares patent. Cardiovascular: Regular Rate and Rhythm Respiratory: Patient is in no distress, no accessory muscle use, lungs are clear to auscultation, no wheezing, rales or rhonchi Back: non-tender GI: Soft and nontender Musculoskeletal: The patient has no evidence of calf tenderness, no pitting edema, symmetrical pulses noted bilaterally Neurological: Awake and alert. She knows her name but does not know exactly where she is or the year or why she is here. Psychiatric: Cooperative Constitutional Vital Signs, click to edit/add: Last Vital Signs Temp 98.1 F 09/27/24 13:54 Pulse 110 H 09/27/24 13:54 Resp 20 09/27/24 13:54 BP 106/69 09/27/24 13:54 Pulse Ox 99 09/27/24 13:54 O2 Del Method Room Air 09/27/24 13:54 Course Vital Signs Vital signs: Vital Signs Temperature 98.1 F 09/27/24 13:54 Pulse Rate 110 H 09/27/24 13:54 Respiratory Rate 20 09/27/24 13:54 Blood Pressure 106/69 09/27/24 13:54 Pulse Oximetry 99 09/27/24 13:54 Oxygen Delivery Method Room Air 09/27/24 13:54 Temperature 98.1 F 09/27/24 13:54 Pulse Rate 110 H 09/27/24 13:54 Respiratory Rate 20 09/27/24 13:54 Blood Pressure 106/69 09/27/24 13:54 Pulse Oximetry 99 09/27/24 13:54 Oxygen Delivery Method Room Air 09/27/24 13:54 Medical Decision Making MDM Narrative Medical decision making narrative: UTI is identified and she was given IV Rocephin. Family requested hospice consult and this is being accomplished here in the emergency department. Differential Diagnosis Differential Diagnosis: UTI, dehydration Lab Data Lab results reviewed: Yes I reviewed the patient's lab results Labs: Lab Results 09/27/24 09/27/24 09/27/24 Range/Units 14:05 14:10 15:38 WBC 10.9 (4.0-11.0) 10^3/uL RBC 3.29 L (4.20-5.40) 10^6/uL Hgb 9.4 L (12.0-16.0) g/dL Hct 28.2 L (36.0-48.0) % MCV 85.7 (81.0-99.0) fL MCH 28.6 (26.7-34.0) pg MCHC 33.3 (29.9-35.2) g/dL RDW 13.0 (11.0-15.0) % Plt Count 279 (150-450) 10^3/uL MPV 9.3 L (9.5-13.5) fL Neut % (Auto) 91.7 H (43.0-75.0) % Lymph % (Auto) 2.8 L (20.5-60.0) % Sebastian % (Auto) 5.1 (1.7-12.0) % Eos % (Auto) 0.0 L (0.9-7.0) % Baso % (Auto) 0.1 L (0.2-2.0) % Neut # (Auto) 10.0 H (1.4-6.5) 10^3/uL Lymph # (Auto) 0.3 L (1.2-3.8) 10^3/uL Sebastian # (Auto) 0.6 (0.3-0.8) 10^3/uL Eos # (Auto) 0.0 (0.0-0.7) 10^3/uL Baso # (Auto) 0.0 (0.0-0.1) 10^3/uL Abs Immat Gran (auto) 0.03 (0.00-0.03) 10^3/uL Imm/Tot Granulo (auto) 0.3 (0.0-0.5) % Sodium 142 (136-145) mmol/L Potassium 2.6 L* (3.5-5.1) mmol/L Chloride 106 (98-107) mmol/L Carbon Dioxide 23.8 (21.0-32.0) mmol/L Anion Gap 14.8 BUN 30.0 H (7.0-18.0) mg/dL Creatinine 0.99 (0.55-1.02) mg/dL Est GFR ( Amer) >60 (>=60 mL/min/1.73m^2) Est GFR (Non-Af Amer) 56 L (>=60 mL/min/1.73m^2) BUN/Creatinine Ratio 30.3 Glucose 98 (74-106) mg/dL Lactate 1.2 (0.4-2.0) mmol/L Calcium 8.3 L (8.5-10.1) mg/dL Urine Color Dk. orange (YELLOW) Urine Clarity Cloudy A (CLEAR) Urine pH 6.0 (5.0-9.0) Ur Specific Alvo 1.025 (1.005-1.025) Urine Protein >=300 A (NEG/TRACE) mg/dL Urine Glucose (UA) Negative (NEGATIVE) mg/dL Urine Ketones 15 A (NEGATIVE) mg/dL Urine Occult Blood Large A (NEGATIVE) Urine Nitrite Negative (NEGATIVE) Urine Bilirubin Small A (NEGATIVE) Urine Urobilinogen 1.0 (0.2-1.0) EU/dL Ur Leukocyte Esterase Moderate A (NEGATIVE) Urine RBC 20-50 A (0-2) #/HPF Urine WBC 20-50 A (NONE SEEN) #/HPF Ur Squamous Epith Cells Rare (NONE/RARE) #/LPF Urine Crystals None seen (None Seen) #/HPF Urine Bacteria Moderate A (NONE SEEN) #/HPF Urine Casts None seen (NONE SEEN) #/LPF Urine Mucus Trace A (NONE SEEN) Ur Culture Indicated? Yes-[facility] [place] Discharge Plan Discharge Chief Complaint: Altered Mental Status Clinical Impression: Urinary tract infection Patient Disposition: Home, Self-Care Time of Disposition Decision: 18:48 Condition: Good Mode of Transportation: Private Vehicle Prescriptions / Home Meds: New cephalexin 500 mg capsule 500 mg PO TID 7 Days Qty: 21 0RF No Action baclofen 10 mg tablet 10 mg PO DAILY PRN (Reason: muscle spasm) Patient Comments: 0600,1400,2200 sertraline 50 mg tablet 200 mg PO DAILY Metamucil 3.4 gram/5.4 gram powder 1 tbsp PO QPM Rx Instructions: mix into at least 8 oz of water or juice before administering megestrol 40 mg tablet 80 mg PO DAILY mirtazapine 30 mg tablet 30 mg PO BEDTIME potassium chloride 20 mEq/15 mL liquid 20 meq PO BID rivastigmine tartrate 3 mg capsule 3 mg PO BID cholecalciferol (vitamin D3) [Vitamin D3] 25 mcg (1,000 unit) capsule 1,000 unit PO DAILY baclofen 20 mg tablet 20 mg PO BEDTIME hydroxyzine HCl 25 mg tablet 25 mg PO Q6H PRN (Reason: anxiety) lorazepam 0.5 mg tablet 0.25 mg PO Q12H PRN (Reason: anxiety) ondansetron HCl 4 mg tablet 4 mg PO Q8H PRN (Reason: nausea and vomiting) omeprazole 40 mg capsule,delayed release(DR/EC) 40 mg PO QAM brimonidine 0.2 % drops 1 drp OPHTHALMIC (EYE) TID timolol maleate 0.5 % drops 1 drp OPHTHALMIC (EYE) QAM melatonin 5 mg tablet 5 mg PO BEDTIME loperamide [Anti-Diarrheal (loperamide)] 2 mg capsule 2 mg PO Q6H PRN (Reason: loose stool) acetaminophen 325 mg capsule 650 mg PO Q6H PRN (Reason: pain) calcium carbonate [Tums] 320 mg calcium (750 mg) tablet,chewable 650 mg PO TID carbidopa-levodopa [Sinemet] 25-100 mg tablet 2 tab PO DAILY Rx Instructions: at 1800 entacapone 200 mg tablet 200 mg PO QAM Rx Instructions: administer at the same time as l-dopa/carbidopa dose ibandronate 150 mg tablet 150 mg PO .[id number] Rx Instructions: on the of the month carbidopa-levodopa 25-100 mg tablet 3 tab PO TID Rx Instructions: Take at 0600, 1000, and 1400. Avoid waking pt to give doses Print Language: Macedonian Instructions: Urinary Tract Infection in Women (ED) Referrals: ELLY SUNSHINE [Primary Care Provider, Family Practice] - 1 week
[2024-09-27 13:54] VITALS: BP 106/69; PULSE 110; TEMP 36.7; O2SAT 99; BMI 17.6
[2024-09-27 14:13] LABS: Basophils Percent Auto 0.1 % (0.2-2.0); Hematocrit 28.2 % (36.0-48.0); Hemoglobin 9.4 g/dL (12.0-16.0); Immature Granulocytes Abs Auto 0.03 10^3/uL (0.00-0.03); Immature Granulocytes Pct Auto 0.3 % (0.0-0.5); Lymphocytes Absolute Auto 0.3 10^3/uL (1.2-3.8); Lymphocytes Percent Auto 2.8 % (20.5-60.0); Mean Corpuscular HGB Conc 33.3 g/dL (29.9-35.2); Mean Corpuscular Hemoglobin 28.6 pg (26.7-34.0); Mean Corpuscular Volume 85.7 fL (81.0-99.0); Mean Platelet Volume 9.3 fL (9.5-13.5); Monocytes Absolute Auto 0.6 10^3/uL (0.3-0.8); Monocytes Percent Auto 5.1 % (1.7-12.0); Neutrophils Percent Auto 91.7 % (43.0-75.0); Platelet Count 279 10^3/uL (150-450); Red Blood Count 3.29 10^6/uL (4.20-5.40); White Blood Count 10.9 10^3/uL (4.0-11.0)
[2024-09-27] MEDS: 0.9 % SODIUM CHLORIDE 1,000 ML 125 ML IV (14:20)
[2024-09-27 14:28] LABS: Anion Gap 14.8; BUN Creatinine Ratio 30.3; Calcium 8.3 mg/dL (8.5-10.1); Carbon Dioxide 23.8 mmol/L (21.0-32.0); Chloride 106 mmol/L (98-107); Estimated GFR (African America >60 (>=60 mL/min/1.73m^2); Estimated GFR (Non-African Ame 56 (>=60 mL/min/1.73m^2); Glucose 98 mg/dL (74-106); Sodium 142 mmol/L (136-145)
[2024-09-27 14:31] LABS: Potassium 2.6 mmol/L (3.5-5.1)
[2024-09-27 14:40] LABS: Bilirubin Urine SMALL (NEGATIVE); Blood Urine LARGE (NEGATIVE); Clarity Urine CLOUDY (CLEAR); Color Urine DK. ORANGE (YELLOW); Glucose Urine UA NEGATIVE (NEGATIVE); Ketones Urine 15 mg/dL (NEGATIVE); Leukocyte Esterase Urine MODERATE (NEGATIVE); Nitrite Urine NEGATIVE (NEGATIVE); Protein Urine >=300 mg/dL (NEG/TRACE); Specific Gravity Urine 1.025 (1.005-1.025)
[2024-09-27 14:52] LABS: Bacteria Urine MODERATE #/HPF (NONE SEEN); Cast Seen? NONE SEEN #/LPF (NONE SEEN); Crystals Seen? None Seen #/HPF (None Seen); Mucus Urine TRACE (NONE SEEN); RBC Urine 20-50 #/HPF (0-2); Squamous Epithelial Cell Urine RARE #/LPF (NONE/RARE); Urine Culture Indicated YES-FRMC; WBC Urine 20-50 #/HPF (NONE SEEN)
[2024-09-27] MEDS: CEFTRIAXONE 1,000 MG in 0.9 % SODIUM CHLORIDE 50 ML 100 MG IV (15:45)
[2024-09-27] MEDS: POTASSIUM BICARBONATE/CIT 25 MEQ TABLET EFF 50 MEQ PO (15:46)
--- NOTE | 2024-09-27 15:52 | SWNOTE1 ---
SOILA received call from ED nurse, family would like to talk about hospice. SOILA spoke to pt, brother, and sister in law. They would like [facility]. Pt's just signed back on and Blanquita at [facility] mentioned it for pt. SOILA to reach out to Ruth at [facility]. SOILA called Ruth and they are aware of and can come see pt in ED. They will need order. SOILA let doctor know that order needed. SOILA faxed order, face sheet, ED note, and case management report to [facility]. Ruth will let SOILA know time and SW to notify ED nurse.
--- NOTE | 2024-09-27 15:56 | PC.NURSE ---
1545 - Sally from social work in room speaking with brother and ED about hospice information.
[2024-09-27 16:15] LABS: Lactate/Lactic Acid 1.2 mmol/L (0.4-2.0)
--- NOTE | 2024-09-27 19:03 | PC.NURSE ---
1730 - pt incontinent of liquid stool at this time -- skin carebed bath completed. stool sample collected. linens changed and adjusted in bed at this time.
--- NOTE | 2024-09-27 19:20 | PC.NURSE ---
[facility] at bedside with pt at this time. pt and family aware observation overnight and then placement with Hospice tomorrow after discharge.
[2024-09-27 19:21] LABS: C. Difficile PCR NEGATIVE
--- NOTE | 2024-09-27 20:08 | PC.NURSE ---
bedside report given to Harmony WASHIGNTON, all questions answered.
--- OUTSIDE RECORDS SUMMARY | 2024-09-27 20:08 | XMS_ITS | CCD ---
Author Organization [facility] CliniSyde Care Team Providers Care Elephant Tamer Name Role Phone FANPHI, RICARDO Aceves Unavailable Unavailable FANNING, RICARDO Aceves Unavailable Unavailable PAY ., DR DAVID Admitting Unavailable PAY ., DR DAVID Attending Unavailable JASPREET, DR SANABRIA Primary Care Unavailable PAY ., DR DAVID Consulting Unavailable GRECHNY ., SALLY CARABALLO Consulting Unavailabl e Jaspreet COLEMAN, Shea Augie Primary Care Provider Enrico FISH PEDDLER, Saira R Unavailable Enrico FISH PEDDLER, Saira R Unavailable Jaspreet COLEMAN, Shea Ghosh [...] Unavailable JASPREET, SHEA F Primary Care Unavailable YVETTEENBERGSUSHIL Attending Unavailable JASPREET, SHEA F Referring Unavailable JASPREET, SHEA F Primary Care Unavailable NIENBERGSYLVIE Referring Unavailable JASPREET, SHEA F Primary Care Unavailable SUSHIL PIERCE Attending Unavailable SUSHIL PIERCE Referring Unavailable JASPREET, SHEA F Primary Care Unavailable KYUNG, EHAD Attending Unavailable JASPREET, SHEA F Referring Unavailable JASPREET, SHEA F Primary Care Unavailable JASPREET, SHEA F Primary Care Unavailable SISI BROOKE Attending Unavailable JASPREET, SHEA F Referring Unavailable JASPREET, SHEA F Primary Care Unavailable EANILIANA Referring Unavailable SHEA VOGEL Primary Care Unavailable Weston FISH PEDDLER, Saira Pelaez Unavailable Sadaf-Nossek MANAGER CHANNEL-MUSIC VIDEO PRODUCER, Shashi Natarajan Unavailable [facility] Unavailable Unavailable Ralph FISH PEDDLER, Sue Unavailable Master Alexander DO Unavailable FOREIGN GONZALES Attending Unavailable SADAF-NOSSEK, SHASHI Natarajan Referring Unavailab johny BENJAMIN, MASTER Attending Unavailable JASPREET, SHEA Ghosh Referring Unavailable FOREIGN GONZALES Attending Unavailable SADAF-NOSSEK, SHASHI Natarajan Attending Unavailab johny ROSASSUE Attending Unavailable JASPREET, SHEA Ghosh Attending Unavailable JASPREET, SHEA Ghosh Attending Unavailable JASPREET, SHEA Ghosh Referring Unavailable SADAF-NOSSEK, SHASHI Natarajan Attending Unavailab le JASPREET, SHEA Ghosh Attending Unavailable JASPREET, SHEA Ghosh Referring Unavailable SADAF-NOSSEK, SHASHI Natarajan Attending Unavailab johny NUNEZETT, MASTER Attending Unavailable SADAF-NOSSEK, SHASHI Natarajan Attending Unavailab le JASPREET, SHEA Ghosh Attending Unavailable JASPREET, SHEA Ghosh Attending Unavailable JASPREET, SHEA Augie Referring Unavailable JASPREET, SHEA Ghosh Attending Unavailable JASPREET, SHEA Ghosh Attending Unavailable SADAF-NOSSEK, SHASHI Natarajan Attending Unavailab le SADAF-NOSSEK, SHASHI Natarajan Attending Unavailab le JASPREET, SHEA Ghosh Attending Unavailable Allergies Allergy Classification Reported Allergen(s) Allergy Type Date of Onset Reaction(s) Facility (1 source) buPROPion Drug Allergy 08-26-2022 [facility] Repository (20 sources) buPROPion Drug Allergy 09-26-2022 Unknown [facility] (2 sources) buPROPion; Translations: [BUPROPION HCL] Drug [...] by mouth once daily fish oil concentrate (Hartford-3) 1000 MG capsule Take 1 g by mouth Daily 02/16/2024 Discontinued (Therapy completed) entacapone 200 mg oral tablet (8 sources) Kcxalaay-U-Iqzmcyl ransferase Inhibitor Start: 08-28-2024 take 1 tablet [...] needed for anxiety 60 capsule 2 08/16/2024 Active Start: 11-18-2023 End: 01-24-2024 hydrOXYzine HCl [...] mg oral tablet (20 sources) Bisphosphonate Start: End: take 1 tablet by mouth every [...] oral tablet (20 sources) Nonsteroidal Anti-inflammatory Drug End: 09-25-2024 take 1 tablet by mouth every eight hours as needed for pain ibuprofen 400 MG tablet Take 400 mg by mouth every 8 (eight) hours if needed for moderate pain Take 1 tablet po every 8 hours as needed for up to 10 days 09/25/2024 Discontinued loperamide hydrochloride 2 mg oral capsule (20 [...] needed . Active take 1 capsule by mo [facility] four times daily as needed for diarrhea loperamide (Imodium) 2 MG capsule Take 2 mg by mouth 4 (four) times a day as needed for diarrhea 0 Active LORazepam 0.5 mg oral tablet (20 sources) Benzodiazepine Start: 07-17-2024 End: 04-02-2025 take 0.5 tablet by mouth once LORazepam [...] tablet (20 sources) Progestin Start: 08-21-2024 End: 09-25-2024 take 2 tablets by mouth once daily megestrol (Megace) 40 MG tablet Indications: Weight loss Take 2 tablets (80 mg total) by mouth Daily. 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 THERAPY] Onset: 3 Episodic Other [...] disorder] Onset: 2 Chronic Residual codes; unclassified (14 sources) Periodic leg movements of sleep ; Translations: [Periodic limb movement disorder] Onset: 2 01-06-2023 Chronic Residual codes; unclassified (8 sources) Insomnia; Translations: [Insomnia, unspecified] 04-03-2024 Episodic [...] 027 NAP1 Negative (qualifier value) Normal PRNEG [facility] Comment on above: Performed By: #### 8 2195-9 ####[facility] ([id number])[address] [place] [id number] ([id number])[address], [place] [address]#### 65927-2 ####[facility] ([id number])[address], [address], [place] [address] Calprotectin (Stl) [Mass/Mas s]on 03-23-2024 Calprotectin, F <50.0 Normal <50.0 (Normal) [facility] Comment on above: Result Comment: NOTE Test Performed by: [place] [address] Wet Machine Tender: Nina Cage Ph.D.; CLIA# [id number] Performed By: #### 2 5907-7, 87801-6 ####[facility] ([id number])[address] [place] [address] Elastase.pancreatic (Stl) [M ass/Mass]on 03-23-2024 Pancreatic Elastase, F 437 mcg/g Normal >200 (Normal) [facility] Comment on above: Result Comment: NOTE Test Performed by: [place] [address] Wet Machine Tender: Nina Cage Ph.D.; CLIA# [id number] Performed By: #### 2 5907-7, 50239-6 ####[facility] ([id number])[address] [place] [address]186 GI PANELon 03-23-2024 Gastrointestinal pathogens DNA and [...] SAPOVIRUS Not detected (qualifier value) Normal NDET [facility] Comment on above: Performed By: #### 8 2195-9 #### [facility] ([id number]) [address] [facility] [place] [address] [facility] ([id number]) [address], [address] [place] [address] #### 47273-4 #### [facility] ([id number]) [address], [address] [place] [address] MR MRCP WITH MRI ABD W WO [...] Roman DO on 03/23/2024 11:34 AM Normal [facility] BASIC METABOLIC PANLon 03-08 Anion gap [Moles/Vol] 10 mmol/L Normal 5-15 [facility] Comment on above: Performed By: #### C SIMI BMP, 304-3, LIVR, 36676-8 #### [facility] ([id number]) [address] [place] [address] Calcium [Mass/Vol] 9.2 mg/dL Normal 8.5-10.5 [facility] Comment on above: Performed By: #### C BCA BMP, 304-3, LIVR, 87552-6 #### [facility] ([id number]) [address] [place] [address]8420 Chloride [Moles/Vol] 103 mmol/L Normal 98-109 [facility] Comment on above: Performed By: #### C BCA, BMP, 3040-3, LIVR, 44884-3 #### [facility] ([id number]) [address] [place] [address] 26124 CO2 [Moles/Vol] 24 mmol/L Normal 22-32 [facility] Comment on above: Performed By: #### C BCA, BMP, 3040-3, LIVR, 88011-8 #### [facility] ([id number]) [address] [place] [address] 40762 Creatinine [Mass/Vol] 0.71 mg/dL Normal 0.40-1.00 [facility] Comment on above: Result Comment: METH OD TRACEABLE TO IDMS STANDARD Performed By: #### C BCA, BMP, 3040-3, LIVR, #### [facility] ([id number]) [address] [place] [address] 86859 eGFR (CKD-EPI) NON-RACE DEPENDENT >90 Normal >59 [facility] Comment on above: Result Comment: Reported eGFR is based on the CKD-EPI 2020 equation that does not use a race coefficient. Performed By: #### C BCA, BMP, 3040-3, LIVR, 26793-3 #### [facility] ([id number]) [address] [place] [address] 55448 Glucose [Mass/Vol] 111 mg/dL High 65-99 [facility] Comment on above: Performed By: #### C BCA, BMP, 3040-3, LIVR, 62306-6 #### [facility] ([id number]) [address] [place] [address] 59686 Potassium [Moles/Vol] 4.3 mmol/L Normal 3.5-5.0 [facility] Comment on above: Performed By: #### C BCA, BMP, 3040-3, LIVR, 42671-0 #### [facility] ([id number]) [address] [place] [address] 67934 Sodium [Moles/Vol] 137 mmol/L Normal 134-146 [facility] Comment on above: Performed By: #### C BCA, BMP, 3040-3, LIVR, 57728-2 #### [facility] ([id number]) [address] [place] [address] 21958 Urea nitrogen [Mass/Vol] 18 mg/dL Normal 5-27 [facility] Comment on above: Performed By: #### C BCA, BMP, 3040-3, LIVR, #### [facility] ([id number]) [address] [place] [address] 35189 CBC AND AUTO DIFFon 03-08-20 24 ABSOLUTE BASOPHIL 0.0 X10E9/L Normal 0.0-0.2 [facility] Comment on above: Performed By: #### C BCA, BMP, 3039-3, LIVR, #### [facility] ([id number]) [address] [place] [address] 57426 ABSOLUTE NEUTROPHIL 6.8 X10E9/L High 1.5-6.6 [facility] Comment on above: Performed By: #### C BCA, BMP, 3040-3, LIVR, #### [facility] ([id number]) [address] [place] [address] 34163 Basophils/100 WBC (Bld) 0.3 % Normal [facility] Comment on above: Performed By: #### C BCA, BMP, 3039-3, LIVR, #### [facility] ([id number]) [address] [place] [address] 57065 Eosinophils (Bld) [#/Vol] 0.0 10*3/uL Normal 0.0-0.4 [facility] Comment on above: Performed By: #### C BCA, BMP, 3040-3, LIVR, #### [facility] ([id number]) [address] [place] [address] 86713 Eosinophils/100 WBC (Bld) 0.3 % Normal [facility] Comment on above: Performed By: #### C BCA, BMP, 3040-3, LIVR, #### [facility] ([id number]) [address] [place] [address] 59651 Erythrocyte distribution width (RBC) [Ratio] 14.2 % Normal 11.5-15.0 [facility] Comment on above: Performed By: #### C SIMI, BMP, 3039-3, LIVR, #### [facility] ([id number]) [address] [place] [address] 43003 Hematocrit (Bld) [Volume fraction] 40.9 % Normal 35-47 [facility] Comment on above: Performed By: #### C SIMI, CHAVO, 3039-3, LIVR, #### [facility] ([id number]) [address] [place] [address] 87094 Hemoglobin (Bld) [Mass/Vol] 13.9 g/dL Normal 11.7-15.5 [facility] Comment on above: Performed By: #### C SIMI, CHAVO, 3, LIVR, #### [facility] ([id number]) [address] [place] [address] 98687 Lymphocytes (Bld) [#/Vol] 0.5 10*3/uL Low 1.0-3.5 [facility] Comment on above: Performed By: #### Federico BELCHER BMP, 3039-3, LIVR, #### [facility] ([id number]) [address] [place] [address] 92552 Lymphocytes/100 WBC (Bld) 5.8 % Normal [facility] Comment on above: Performed By: #### Federico BELCHER, BMP, 0-3, LIVR, #### [facility] ([id number]) [address] [place] [address] 99733 MCH (RBC) [Entitic mass] 29.6 pg Normal 27-34 [facility] Comment on above: Performed By: #### C BCA, BMP, 3040-3, LIVR, #### [facility] ([id number]) [address] [place] [address] 94612 MCHC (RBC) [Mass/Vol] 34.0 g/dL Normal 32-36 [facility] Comment on above: Performed By: #### C BCA, BMP, 3040-3, LIVR, #### [facility] ([id number]) [address] [place] [address] 99562 MCV (RBC) [Entitic vol] 87 fL Normal 80-100 [facility] Comment on above: Performed By: #### C BCA, BMP, 3040-3, LIVR, #### [facility] ([id number]) [address] [place] [address] 42677 Monocytes (Bld) [#/Vol] 0.5 10*3/uL Normal 0-0.9 [facility] Comment on above: Performed By: #### C BCA, BMP, 3040-3, LIVR, #### [facility] ([id number]) [address] [place] [address] 47576 Monocytes/100 WBC (Bld) 6.7 % Normal [facility] Comment on above: Performed By: #### C BCA, BMP, 3040-3, LIVR, #### [facility] ([id number]) [address] [place] [address] 48778 Neutrophils/100 WBC (Bld) 86.9 % Normal [facility] Comment on above: Performed By: #### C BCA, BMP, 3040-3, LIVR, #### [facility] ([id number]) [address] [place] [address] 92518 Platelet mean volume (Bld) [Entitic vol] 7.4 fL Normal 7-12 [facility] Comment on above: Performed By: #### C BCA, BMP, 3040-3, LIVR, 07789-8 #### [facility] ([id number]) [address] [place] [address] 56084 Platelets (Bld) [#/Vol] 298 10*3/uL Normal 150-450 [facility] Comment on above: Performed By: #### C BCA, BMP, 3040-3, LIVR, 71707-5 #### [facility] ([id number]) [address] [place] [address] 92026 RBC COUNT 4.70 X10E12/L Normal 3.80-5.20 [facility] Comment on above: Performed By: #### C BCA, BMP, 3040-3, LIVR, 78270-2 #### [facility] ([id number]) [address] [place] [address] 64700 WBC (Bld) [#/Vol] 7.8 10*3/uL Normal 4.0-11.0 [facility] Comment on above: Performed By: #### C BCA, BMP, 3040-3, LIVR, 21390-3 #### [facility] ([id number]) [address] [place] [address] ABDOMEN AND PELVIS W CONT on [...] Renner MD on 03/08/2024 12:39 PM Normal [facility] LIPASEon 03-08-2024 Lipase [Catalytic activity/Vol] 56 U/L High 17-40 [facility] Comment on above: Performed By: #### C BCA BMP, 3040-3, LIVR, 93262-4 #### [facility] ([id number]) [address] [place] [address] 90587 LIVER PANELon 03-08-2024 Albumin [Mass/Vol] 4.5 g/dL Normal 3.2-5.3 [facility] Comment on above: Performed By: #### C BCA, BMP, 3040-3, LIVR, 78720-4 #### [facility] ([id number]) [address] [place] [address] 18197 ALP [Catalytic activity/Vol] 73 U/L Normal 39-130 [facility] Comment on above: Performed By: #### C BCA, BMP, 3039-3, LIVR, 60869-0 #### [facility] ([id number]) [address] [place] [address] 63787 ALT [Catalytic activity/Vol] 17 U/L Normal 0-31 [facility] Comment on above: Performed By: #### C BCA, BMP, 3040-3, LIVR, 46460-2 #### [facility] ([id number]) [address] [place] [address] 20498 AST [Catalytic activity/Vol] 14 U/L Normal 0-41 [facility] Comment on above: Performed By: #### C BCA, BMP, 3040-3, LIVR, 68594-6 #### [facility] ([id number]) [address] [place] [address] 64936 Bilirubin [Mass/Vol] 0.8 mg/dL Normal 0.3-1.2 [facility] Comment on above: Performed By: #### C BCA, BMP, 0-3, LIVR, 16995-8 #### [facility] ([id number]) [address] [place] [address] 98533 Bilirubin.direct [Mass/Vol] 0.1 mg/dL Normal 0.0-0.4 [facility] Comment on above: Performed By: #### C BCA, BMP, 3040-3, LIVR, 99366-9 #### [facility] ([id number]) [address] [place] [address] 99652 Protein [Mass/Vol] 7.5 g/dL Normal 6.0-8.0 [facility] Comment on above: Performed By: #### C BCA, BMP, 3039-3, LIVR, 94158-2 #### [facility] ([id number]) [address] [place] [address] 26688 MAGNESIUMon 03-08-2024 Magnesium [Mass/Vol] 1.9 mg/dL Normal 1.8-2.6 [facility] Comment on above: Performed By: #### C BCA, BMP, 3040-3, LIVR, 63138-4 #### [facility] ([id number]) [address] [place] [address] 85715 [place] RUQon 02-23-2024 [place] RUQ EXAM: Limited [...] report is generated using voice recognition reporting ([employer]). On occasion [employer] erroneously drops words from the report or [...] UA Negative Negative - 4(70) +++ mg/dL [facility] Blood, UA Positive Negative - 50 Felix/mcL [facility] Clarity, UA Clear [facility] Color, UA Light Yellow [facility] Glucose, UA Negative Negative - 2000(110) ++++ mg/dL [facility] Interpretation and review of laboratory results Abnormal [facility] Ketones, UA Negative Negative - 160(16) ++++ mg/dL [facility] Leukocytes, UA Negative Negative - 500+++ Sonal/mcL [facility] Nitrite, UA Negative Negative - Positive [facility] pH, UA 5.0 5 - 9 [facility] Protein, UA Negative Negative - 2000(20) ++++ mg/dL [facility] Spec Grav, UA 1.020 1 - 1.03 [facility] Urobilinogen, UA 1.0 0.2 - 12 mg/dL [facility] BI MAMMOGRAM SCREENING TOMOS YNTHESIS BILATERALon 01-11-2024 [...] IS VERY IMPORTANT TO YOUR HEALTH. THE [employer] GUIDELINES RECOMMEND THAT WOMEN 40 [...] Valadez MD on 12/09/2023 8:24 AM Normal [facility] XR SPINE LUMBAR 2 OR 3 VWSon [...] Light MD on 12/02/2023 12:59 PM Normal [facility] XR THORACIC SPINE 3 VIEWSon 11-25-2023 XR [...] Acetaminophen [Mass/Vol] ug/mL Critically low 10.0-30.0 [facility] Comment on above: Performed By: #### S ALYC, ETH, ACET, CMP, TSH #### [facility] [address] [address] [address] Harris Perdomo CBC AUTO DIFFon 08-26-2022 BASO # 0.0 103/ul Normal 0.0-0.1 [facility] Comment on above: Performed By: #### C BC #### [facility] [address] [address] [address] Harris Perdomo Basophils/100 WBC (Bld) 0.4 % Normal 0.2-2.0 [facility] Comment on above: Performed By: #### C BC #### [facility] [address] [place] [address] Dr. Harris Perdomo EO # 0.0 103/ul Normal 0.0-0.7 [facility] Comment on above: Performed By: #### C BC #### [facility] [address] [place] [address] Dr. Harris Perdomo Eosinophils/100 WBC (Bld) 0.2 % Critically low 0.9-7.0 [facility] Comment on above: Performed By: #### C BC #### [facility] [address] [place] [address] Dr. Harris Perdomo Erythrocyte distribution width (RBC) [Ratio] 12.1 % Normal 11.0-15.0 [facility] Comment on above: Performed By: #### C BC #### [facility] [address] [place] [address] Dr. Harris Perdomo Hematocrit (Bld) [Volume fraction] 39.3 % Normal 36.0-48.0 [facility] Comment on above: Performed By: #### C BC #### [facility] [address] [place] [address] Dr. Harris Perdomo Hemoglobin (Bld) [Mass/Vol] 13.3 g/dL Normal 12.0-16.0 [facility] Comment on above: Performed By: #### C BC #### [facility] [address] [place] [address] Dr. Harris Perdomo IG # 0.00 10e3/ul Normal 0.00-0.03 [facility] Comment on above: Performed By: #### C BC #### [facility] [address] [place] [address] Dr. Harris Perdomo IG % 0.0 % Normal 0.0-0.5 [facility] Comment on above: Performed By: #### C BC #### [facility] [address] [place] [address] Dr. Harris Perdomo LYMPH # 0.5 103/ul Critically low 1.2-3.8 [facility] Comment on above: Performed By: #### C BC #### [facility] [address] [place] [address] Dr. Harris Perdomo Lymphocytes/100 WBC (Bld) 10.2 % Critically low 20.5-60.0 [facility] Comment on above: Performed By: #### C BC #### [facility] [address] [place] [address] Dr. Harris Perdomo MANUAL DIFF REQ NO Normal [facility] Comment on above: Performed By: #### C BC #### [facility] [address] [place] [address] Dr. Harris Perdomo MCH (RBC) [Entitic mass] 30.6 pg Normal 26.7-34.0 [facility] Comment on above: Performed By: #### C BC #### [facility] [address] [place] [address] Dr. Harris Perdomo MCHC (RBC) [Mass/Vol] 33.8 g/dL Normal 29.9-35.2 [facility] Comment on above: Performed By: #### C BC #### [facility] [address] [place] [address] Dr. Harris Perdomo MCV (RBC) [Entitic vol] 90.6 fL Normal 81.0-99.0 [facility] Comment on above: Performed By: #### C BC #### [facility] [address] [place] [address] Dr. Harris Perdomo MONO # 0.3 103/ul Normal 0.3-0.8 [facility] Comment on above: Performed By: #### C BC #### [facility] [address] [place] [address] Dr. Harris Perdomo Monocytes/100 WBC (Bld) 6.2 % Normal 1.7-12.0 [facility] Comment on above: Performed By: #### C BC #### [facility] [address] [place] [address] Dr. Harris Perdomo NEUT # 4.3 103/ul Normal 1.4-6.5 [facility] Comment on above: Performed By: #### C BC #### [facility] [address] [place] [address] Dr. Harris Perdomo Neutrophils/100 WBC (Bld) 83.0 % Critically high 43.0-75.0 [facility] [facility] Comment on above: Performed By: #### C BC #### [facility] [address] [place] [address] Dr. Harris Perdomo Platelet mean volume (Bld) [Entitic vol] 8.3 fL Critically low 9.5-13.5 [facility] Comment on above: Performed By: #### C BC #### [facility] [address] [place] [address] Dr. Harris Perdomo PLT 251 103/ul Normal 150-450 [facility] Comment on above: Performed By: #### C BC #### [facility] [address] [place] [address] Dr. Harris Perdomo RBC 4.34 106/ul Normal 4.20-5.40 [facility] Comment on above: Performed By: #### C BC #### [facility] [address] [place] [address] Dr. Harris Perdomo WBC 5.2 103/ul Normal 4.0-11.0 [facility] Comment on above: Performed By: #### C BC #### [facility] [address] [place] [address] Dr. Harris Perdomo [facility]15 SARS-CoV-2 (COVID-19) RNA JOSE G+probe Ql (Unsp spec) Not detected Normal NOT DETECTED [facility] Comment on above: Result Comment: When diagnostic [...] for this test is supported by the Civil Manager of Health and Human Service's declaration that [...] used). Performed By: #### C VDTBH #### [facility] [address] [place] [address] Dr. Harris Perdomo DRUG SCREEN RAPID (URINE)on 08-26-2022 AMP Negative Normal NEGATIVE [facility] Comment on above: Performed By: #### E RUR, DRUGRPD #### [facility] [address] [place] [address] Dr. Harris Perdomo BAR Negative Normal NEGATIVE [facility] Comment on above: Performed By: #### E RUR, DRUGRPD #### [facility] [address] [place] [address] Dr. Harris Perdomo BUP Negative Normal NEGATIVE [facility] Comment on above: Performed By: #### E RUR, DRUGRPD #### [facility] [address] [place] [address] Dr. Harris Perdomo BZO Positive Abnormal NEGATIVE [facility] Comment on above: Performed By: #### E RUR, DRUGRPD #### [facility] [address] [place] [address] Dr. Harris Perdomo LAURA Negative Normal NEGATIVE [facility] Comment on above: Performed By: #### E RUR, DRUGRPD #### [facility] [address] [place] [address] Dr. Harris Perdomo CUT-OFFS SEE BELOW Normal [facility] Comment on above: Result Comment: AMP (Amphetamine): [...] Performed By: #### E RUR, DRUGRPD #### [facility] [address] [place] [address] Dr. Harris Perdomo DRUG CUT HEADER DRUG CLASS TEST SYST EM CUT-OFF CONCENTRATIONS ARE FOLLOWS: Normal [facility] Comment on above: Performed By: #### E RUR, DRUGRPD #### [facility] [address] [place] [address] Dr. Harris Perdomo mAMP Negative Normal NEGATIVE [facility] Comment on above: Performed By: #### E RUR, DRUGRPD #### [facility] [address] [place] [address] Dr. Harris Perdomo MTD Negative Normal NEGATIVE [facility] Comment on above: Performed By: #### E RUR, DRUGRPD #### [facility] [address] [place] [address] Dr. Harris Perdomo OPI Negative Normal NEGATIVE [facility] Comment on above: Performed By: #### E RUR, DRUGRPD #### [facility] [address] [place] [address] Dr. Harris Perdomo OXY Negative Normal NEGATIVE [facility] Comment on above: Performed By: #### E RUR, DRUGRPD #### [facility] [address] [place] [address] Dr. Harris Perdomo PCP Negative Normal NEGATIVE [facility] Comment on above: Performed By: #### E RUR, DRUGRPD #### [facility] [address] [place] [address] Dr. Harris Perdomo PPX Negative Normal NEGATIVE [facility] Comment on above: Performed By: #### E RUR, DRUGRPD #### [facility] [address] [place] [address] Dr. Harris Perdomo TCA Negative Normal NEGATIVE [facility] Comment on above: Performed By: #### E RUR, DRUGRPD #### [facility] [address] [place] [address] Dr. Harris Perdomo THC Negative Normal NEGATIVE [facility] Comment on above: Performed By: #### E RUR, DRUGRPD #### [facility] [address] [place] [address] Dr. Harris Perdomo ER URINE PROFILEon 3 Bilirubin Ql (U) Negative Normal NEGATIVE [facility] Comment on above: Performed By: #### E RUR, DRUGRPD #### [facility] [address] [place] [address] Dr. Harris Perdomo Clarity (U) CLEAR Normal CLEAR [facility] Comment on above: Performed By: #### E RUR, DRUGRPD #### [facility] [address] [place] [address] Dr. Harris Perdomo Color (U) LT. YELLOW Normal YELLOW [facility] Comment on above: Performed By: #### E RUR, DRUGRPD #### [facility] [address] [place] [address] Dr. Harris Perdomo ERUAHMora A micrscopic examina tion will be performed if indicated. Normal [facility] Comment on above: Performed By: #### E RUR, DRUGRPD #### [facility] [address] [place] [address] Dr. Harris Perdomo Glucose Ql (U) Negative Normal NEGATIVE [facility] Comment on above: Performed By: #### E RUR, DRUGRPD #### [facility] [address] [place] [address] Dr. Harris Perdomo Hemoglobin Ql (U) Negative Normal NEGATIVE [facility] Comment on above: Performed By: #### E RUR, DRUGRPD #### [facility] [address] [place] [address] Dr. Harris Perdomo Ketones Ql (U) Negative Normal NEGATIVE [facility] Comment on above: Performed By: #### E RUR, DRUGRPD #### [facility] [address] [place] [address] Dr. Harris Perdomo LEUKOCYTES Negative Normal NEGATIVE [facility] Comment on above: Performed By: #### E RUR, DRUGRPD #### [facility] [address] [place] [address] Dr. Harris Perdomo Nitrite Ql (U) Negative Normal NEGATIVE [facility] Comment on above: Performed By: #### Yola MERINO DRUGRPD #### [facility] [address] [place] [address] Dr. Harris Perdomo pH (U) 6.5 [pH] Normal 5-9 [facility] Comment on above: Performed By: #### Yola MERINO DRUGRPD #### [facility] [address] [place] [address] Dr. Harris Perdomo SPEC GRAVITY <=1.005 Abnormal 1.005-<=1.02 5 [facility] Comment on above: Performed By: #### Yola MERINO DRUGRPD #### [facility] [address] [place] [address] Dr. Harris Perdomo UA PROTEIN Negative Normal NEGATIVE/ TRACE [facility] Comment on above: Performed By: #### Yola MERINO DRUGRPD #### [facility] [address] [place] [address] Dr. Harris Perdomo UR MICRO IND NOT INDICATED Normal [facility] Comment on above: Performed By: #### Yola MERINO DRUGRPD #### [facility] [address] [place] [address] Dr. Harris Perdomo Urobilinogen Qn (U) 0.2 {Baylee'U}/dL Normal 0.2 - 1. 0 [facility] Comment on above: Performed By: #### Yola MERINO DRUGRPD #### [facility] [address] [place] [address] Dr. Harris Perdomo ETHANOL (BLD ALC)on 08-27-19 23 ALC NOTE NOTE: 80 mg/dl is th e legal limit for a blood alcohol level Normal [facility] Comment on above: Performed By: #### S ALYC, ETH, ACET, CMP, TSH #### [facility] [address] [place] [address] Dr. Harris Perdomo Ethanol [Mass/Vol] mg/dL Normal [facility] Comment on above: Performed By: #### S ALYC, ETH, ACET, CMP, TSH #### [facility] [address] [address] [address] Harris Perdomo PROF 14(COMP METB)on 023 Albumin [Mass/Vol] 3.8 g/dL Normal 3.4-5.0 [facility] Comment on above: Performed By: #### S ALYC, ETH, ACET, CMP, TSH #### [facility] [address] [address] [address] Harris Perdomo Albumin/Globulin [Mass ratio] 1.2 {ratio} Normal [facility] Comment on above: Performed By: #### S ALYC, ETH, ACET, CMP, TSH #### [facility] [address] [place] [address] Dr. Harris Perdomo ALP [Catalytic activity/Vol] 103 U/L Normal 46-116 [facility] Comment on above: Performed By: #### S ALYC, ETH, ACET, CMP, TSH #### [facility] [address] [place] [address] Dr. Harris Perdomo ALT [Catalytic activity/Vol] 6 U/L Critically low 14-59 [facility] Comment on above: Performed By: #### S ALYC, ETH, ACET, CMP, TSH #### [facility] [address] [place] [address] Dr. Harris Perdomo Anion gap [Moles/Vol] 12.3 mmol/L Normal [facility] Comment on above: Performed By: #### S ALYC, ETH, ACET, CMP, TSH #### [facility] [address] [place] [address] Dr. Harris Perdomo AST [Catalytic activity/Vol] 14 U/L Critically low 15-37 [facility] Comment on above: Performed By: #### S ALYC, ETH, ACET, CMP, TSH #### [facility] [address] [place] [address] Dr. Harris Perdomo Bilirubin [Mass/Vol] 0.4 mg/dL Normal 0.2-1.0 [facility] Comment on above: Performed By: #### S ALYC, ETH, ACET, CMP, TSH #### [facility] [address] [place] [address] Dr. Harris Perdomo Calcium [Mass/Vol] 9.1 mg/dL Normal 8.5-10.1 [facility] Comment on above: Performed By: #### S ALYC, ETH, ACET, CMP, TSH #### [facility] [address] [place] [address] Dr. Harris Perdomo Chloride [Moles/Vol] 106 mmol/L Normal 98-107 [facility] Comment on above: Performed By: #### S ALYC, ETH, ACET, CMP, TSH #### [facility] [address] [place] [address] Dr. Harris Perdomo CO2 [Moles/Vol] 28.7 mmol/L Normal 21.0-32.0 [facility] Comment on above: Performed By: #### S ALYC, ETH, ACET, CMP, TSH #### [facility] [address] [place] [address] Dr. Harris Perdomo Creatinine [Mass/Vol] 0.65 mg/dL Normal 0.55-1.02 [facility] Comment on above: Performed By: #### S ALYC, ETH, ACET, CMP, TSH #### [facility] [address] [place] [address] Dr. Harris Perdomo EGFR-AF SPANISH >60 Normal >=60 [facility] Comment on above: Performed By: #### S ALYC, ETH, ACET, CMP, TSH #### [facility] [address] [place] [address] Dr. Harris Perdomo EGFR-NON AF SPANISH >60 Normal >=60 [facility] Comment on above: Performed By: #### S ALYC, ETH, ACET, CMP, TSH #### [facility] [address] [place] [address] Dr. Harris Perdomo Globulin (S) [Mass/Vol] 3.2 g/dL Normal [facility] Comment on above: Performed By: #### S ALYC, ETH, ACET, CMP, TSH #### [facility] [address] [address] [address] Harris Perdomo Glucose [Mass/Vol] 99 mg/dL Normal 74-106 [facility] Comment on above: Performed By: #### S ALYC, ETH, ACET, CMP, TSH #### [facility] [address] [place] [address] Dr. Harris Perdomo Potassium [Moles/Vol] 4.0 mmol/L Normal 3.5-5.1 [facility] Comment on above: Performed By: #### S ALYC, ETH, ACET, CMP, TSH #### [facility] [address] [address] [address] Harris Perdomo Protein [Mass/Vol] 7.0 g/dL Normal 6.4-8.2 [facility] Comment on above: Performed By: #### S ALYC, ETH, ACET, CMP, TSH #### [facility] [address] [place] [address] Dr. Harris Perdomo Sodium [Moles/Vol] 143 mmol/L Normal 136-145 [facility] Comment on above: Performed By: #### S ALYC, ETH, ACET, CMP, TSH #### [facility] [address] [address] [address] Harris Perdomo Urea nitrogen [Mass/Vol] 20.0 mg/dL Critically high 7.0-18.0 [facility] Comment on above: Performed By: #### S ALYC, ETH, ACET, CMP, TSH #### [facility] [address] [place] [address] Dr. Harris Perdomo Urea nitrogen/Creatinine [Mass ratio] 30.8 mg/mg Normal [facility] Comment on above: Performed By: #### S ALYC, ETH, ACET, CMP, TSH #### [facility] [address] [place] [address] Dr. Harris Perdomo SALICYLATEon 08-26-2022 SALICYLATE <2.8 Normal <=19.9 [facility] Comment on above: Performed By: #### S ALYC, ETH, ACET, CMP, TSH #### [facility] [address] [place] [address] Dr. Harris Perdomo TSHon 08-26-2022 TSH 1.224 uIU/mL Normal 0.358-3.740 [facility] Comment on above: Performed By: #### S ALYC, ETH, ACET, CMP, TSH #### [facility] [id number] Harris Perdomo XR Knee 3 Views Lefton 02-09 XR Knee 3 Views Left FINDINGS: Mild bilateral patellofemoral joint space loss. No cortical or subchondral fracture. No significant osteophyte formation. Small left sided patellofemoral effusion. IMPRESSION: 1. 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 Report reported and signed by Kieran Caputo on 02/09/2022 1429 Normal [facility] Copy Cutter XR Knee 3 Views Righton 01-16 XR Knee 3 Views Right Please see left knee report. Report reported and signed by Kieran Caputo on 02/09/2022 1430 Normal [facility] Copy Cutter XR Humerus Righton XR Humerus Right HISTORY: [...] by Kieran Caputo on 09/11/2021 1054 Normal [facility] Lipid Panelon 05-14-2021 Cholesterol [Mass/Vol] 199 mg/dL Normal 125-200 [facility] Comment on above: Result Comment: Low risk < 200mg/dL Borderline risk 201-239 mg/dl High risk > or equal to 240 Performed By: #### L IPD #### [facility] [address], [place] [id number] Cholesterol in HDL [Mass/Vol] 51 mg/dL Normal >40 [facility] Comment on above: Result Comment: High Cardiovascular Risk HDL <40 mg/dL Low Cardiovascular Risk HDL > or equal to 60 mg/dl Performed By: #### L IPD #### [facility] [address], [place] [id number] Cholesterol in LDL [Mass/Vol] 112 mg/dL Normal [facility] Comment on above: Result Comment: LDL ATP III CLASSIFICATION LDL less than 100 mg/dl Optimal LDL 100-129 mg/dl Near or above optimal LDL 130-159 Borderline high LDL 160-189 High LDL greater than 189 mg/dl Very High Performed By: #### L IPD #### [facility] [address], [place] [id number] Cholesterol in VLDL [Mass/Vol] 36 mg/dL Normal [facility] Comment on above: Performed By: #### L IPD #### [facility] [address], [place] [id number] Cholesterol.total/Ch olesterol in HDL [Mass ratio] 4 {ratio} Normal [facility] Comment on above: Performed By: #### L IPD #### [facility] [address], [place] [id number] Triglyceride [Mass/Vol] 178 mg/dL High 30-150 [facility] Comment on above: Result Comment: TRIG ATPIII CLASSIFICATIONS TRIG less than 150 mg/dl Normal TRIG 150-199 mg/dl Borderline High TRIG 200-500 mg/dl High TRIG greather than 500 mg/dl Very High Performed By: #### L IPD #### [facility] [address], [place] [id number] Q - QUESTASSURED(TM) 25-OH V IT D(D2D3)LC/MS/MSon 05-14-2021 VITAMIN D, 25-OH, D2 <4 Normal [facility] Comment on above: Order Comment: [facility] performed at: [facility], [facility], [address], [place], [place], , Material Requirements Worker: Andrey Lott M.D.,PhD [facility] Date/Time: [facility] Results Received Date/Time: [id number] [facility] Reported Date/Time: Result Comment: This test was developed and its analytical performance characteristics have been determined by [facility] [place], [place]. It has not been cleared or approved by the U.S. Food and Drug Administration. This assay has been validated pursuant to the CLIA regulations and is used for clinical purposes. Performed By: #### [id number] #### [facility] Default [address] [place] [address] VITAMIN D, 25-OH, D3 51 ng/mL Normal [facility] Comment on above: Order Comment: [facility] performed at: [place], [facility], [address], [place], [place], , Material Requirements Worker: Andrey Lott M.D.,PhD [facility] Date/Time: [id number] [facility] Results Received Date/Time: [id number] [facility] Reported Date/Time: Result Comment: This test was developed and its analytical performance characteristics have been determined by [facility] [place], [place]. It has not been cleared or approved by the U.S. Food and Drug Administration. This assay has been validated pursuant to the CLIA regulations and is used for clinical purposes. Performed By: #### [id number] #### [facility] [address] [place] [address] VITAMIN D, 25-OH, TOTAL 51 ng/mL Normal 30-100 [facility] Comment on above: Order Comment: [facility] performed at: [facility], [address], [place], [place], , Material Requirements Worker: Andrey Lott M.D.,PhD [facility] Date/Time: [id number] [facility] Results Received Date/Time: [id number] [facility] Reported Date/Time: Result Comment: Cherelle min [...] any concern. Nesha MF, Andrea NC, Megan CSATILLO, et al. Evaluation, treatment and prevention of vitamin D deficiency: an Endocrine Society clinical practice guideline. J Clin Endocrinol Metab. 2011;96(7):1911-30. For additional information, please refer to http://education.Epuls/faq/VDW667 (This link is being provided for informational/ educational purposes only.) Performed By: #### 9 [id number] #### [facility] [address] [place] [address] SCREENING MAMMOGRAM W/MAKENNA, BILATERAL*on 05-14-2021 SCREENING MAMMOGRAM [...] VERY IMPORTANT TO YOUR HEALTH. THE CURRENT [place] [employer] GUIDELINES RECOMMENDS ANNUAL MAMMOGRAPHY BEGINNING AT AGE 40. THIS FACILITY USES A REMINDER SYSTEM TO ENSURE ALL PATIENTS RECEIVE REMINDER NOTIFICATIONS AT THE APPROPRIATE TIME BASED ON THE RECOMMENDATIONS OF THIS EXAM. Report reported and signed by Kieran Caputo on 05/14/2021 1337 Normal [facility] Copy Cutter CNOVSPon 02-04-2017 CNOVSP Visit (SP) Office ([facility]) SARAH GREGG ([id number]) 1955 FDate Time Provider Department02/04/17 2:00 PM RICARDO CARRASCO During your visit today, we recorded the following information about you: Temperature Pulse Respiration Blood pressure 98 degrees 85/minute 18/minute 115/69 Weight Height 44 kg 1.549 mMINDY LUTHER PANDA PA-C 02/04/2017 1:50 PM SignedPatient: Mirian FlanneryPrashantOB: 1955Race: Katya Complaint:Endometrial CancerHPI: Mirian is here for follow up. She had endometrial cancer diagnosed [id number] and treated with chemotherapy and radiation. She [...] [facility] and she states it has been [facility].Current [...] tremor to left handImaging Studies: CXR at [facility] 01/19/2017 was negativeASSESSMENT/PLAN: 1. 182.0 Endometrial cancerShe has no evidence of disease recurrence. She is now 12 years out from hercancer and she will follow up with her PCP for yearly chest x-rays. 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 182.0 Endometrial cancerShe has no evidence of disease recurrence. She is now 12 years out fromher cancer and she will follow up with her PCP for yearly chest x-rays. MIS PANDA PA-C Normal [facility] Remote CBCDIF (for [facility] use o nly)on 02-04-2017 Abs Baso 0.01 k/uL Normal 0.00-0.10 [facility] Abs Socorro 0.27 k/uL Normal 0.00-0.86 [facility] Abs Neut 2.36 k/uL Normal 1.45-7.50 [facility] Basophils/100 WBC Auto (Bld) 0.3 % Normal [facility] Eosinophils 0.03 10*3/uL Normal 0.00-0.45 [facility] Eosinophils/100 leukocytes 0.9 % Normal [facility] Erythrocyte distribution width Auto Ratio (RBC) 12.8 % Normal 11.5-15.0 [facility] Erythrocytes (RBC) 4.14 10*6/uL Normal 3.90-5.20 [facility] Hematocrit (HCT) 37.9 % Normal 36.0-46.0 [facility] Hemoglobin mass conc (Bld) 12.6 g/dL Normal 11.5-15.5 [facility] Lymphocytes 0.76 10*3/uL Low 1.00-4.00 [facility] Lymphocytes/100 leukocytes 22.2 % Normal [facility] MCH 30.4 pG Normal 26.0-34.0 [facility] MCHC mass conc (RBC) 33.2 g/dL Normal 30.5-36.0 [facility] MCV 91.5 fL Normal 80.0-100.0 [facility] Monocytes/100 leukocytes 7.9 % Normal [facility] Neutrophils/100 WBC Auto (Bld) 68.7 % Normal [facility] Platelet mean volume (PMV) 8.7 fL Low 9.0-12.7 [facility] Platelets 198 10*3/uL Normal 150-400 [facility] WBC (Leukocytes) 3.43 10*3/uL Low 3.70-11.00 [facility] Vital Signs Date Time Vital Sign Value Performing Clinician Carrie mcdaniel 09-25-2024 11:14-0400 Body mass index (BMI) [Ratio] 14.55 kg/m2 Shashi Sadaf-Nossek MANAGER CHANNEL-MUSIC VIDEO PRODUCER Work Phone: [facility] 09-25-2024 11:14-0400 Body weight 34.93 kg Shashi Sadaf-Nossek MANAGER CHANNEL-MUSIC VIDEO PRODUCER Work Phone: [facility] 09-25-2024 11:14-0400 Diastolic blood pressure 68 mm[Hg] Shashi Sadaf-Nossek MANAGER CHANNEL-MUSIC VIDEO PRODUCER Work Phone: [facility] 09-25-2024 11:14-0400 Heart rate 112 /min Shashi Sadaf-Nossek MANAGER CHANNEL-MUSIC VIDEO PRODUCER Work Phone: [facility] 09-25-2024 11:14-0400 Systolic blood pressure 116 mm[Hg] Shashi Sadaf-Nossek MANAGER CHANNEL-MUSIC VIDEO PRODUCER Work Phone: [facility] 09-12-2024 14:13-0400 Body height 154.9 cm Master Alexander [employer] Work Phone: [facility] 09-12-2024 14:13-0400 Body mass index (BMI) [Ratio] 16.06 kg/m2 Master Alexander DO Work Phone: [facility] 09-12-2024 14:13-0400 Body weight 38.56 kg Christopher Benjamin DO Work Phone: [facility] 09-12-2024 14:13-0400 Diastolic blood pressure 70 mm[Hg] Christopher Benjamin DO Work Phone: [facility] 09-12-2024 14:13-0400 Heart rate 76 /min Christopher Benjamin DO Work Phone: [facility] 09-12-2024 14:13-0400 Systolic blood pressure 112 mm[Hg] Christopher Benjamin DO Work Phone: [facility] 08-21-2024 11:12-0400 Body height 154.9 cm Shea Vogel MD Work Phone: [facility] 08-21-2024 11:12-0400 Body mass index (BMI) [Ratio] 16.1 kg/m2 Shea Voegl MD Work Phone: [facility] 08-21-2024 11:12-0400 Body weight 38.65 kg Shea Vogel MD Work Phone: [facility] 08-21-2024 11:12-0400 Diastolic blood pressure 58 mm[Hg] Shea Vogel MD Work Phone: [facility] 08-21-2024 11:12-0400 Heart rate 102 /min Shea Vogel MD Work Phone: [facility] 08-21-2024 11:12-0400 Respiratory rate 16 /min Shea Vogel MD Work Phone: [facility] 08-21-2024 11:12-0400 SaO2% (BldA) [Mass fraction] 98 % Shea Vogel MD Work Phone: [facility] 08-21-2024 11:12-0400 Systolic blood pressure 100 mm[Hg] Shea Vogel MD Work Phone: [facility] 08-08-2024 13:06-0400 Body mass index (BMI) [Ratio] 16.06 kg/m2 Sue Rosas NP Work Phone: [facility] 08-08-2024 13:06-0400 Body weight 38.56 kg Sue Rosas FISH PEDDLER Work Phone: [facility] 08-08-2024 13:06-0400 Diastolic blood pressure 76 mm[Hg] Sue Rosas FISH PEDDLER Work Phone: [facility] 08-08-2024 13:06-0400 Heart rate 105 /min Sue Rosas FISH PEDDLER Work Phone: [facility] 08-08-2024 13:06-0400 SaO2% (BldA) [Mass fraction] 97 % Sue Rosas FISH PEDDLER Work Phone: [facility] 08-08-2024 13:06-0400 Systolic blood pressure 128 mm[Hg] Sue Rosas FISH PEDDLER Work Phone: [facility] 07-17-2024 14:23-0500 Body mass index (BMI) [Ratio] 16.82 kg/m2 Shashi Sadaf-Nossek MANAGER CHANNEL-MUSIC VIDEO PRODUCER Work Phone: [facility] 07-17-2024 14:23-0500 Body weight 40.37 kg Shashi Sadaf-Nossek MANAGER CHANNEL-MUSIC VIDEO PRODUCER Work Phone: [facility] 07-17-2024 14:23-0500 Diastolic blood pressure 82 mm[Hg] Shashi Sadaf-Nossek MANAGER CHANNEL-MUSIC VIDEO PRODUCER Work Phone: [facility] 07-17-2024 14:23-0500 Heart rate 122 /min Shashi Sadaf-Nossek MANAGER CHANNEL-MUSIC VIDEO PRODUCER Work Phone: [facility] 07-17-2024 14:23-0500 Systolic blood pressure 138 mm[Hg] Shashi Sadaf-Nossek MANAGER CHANNEL-MUSIC VIDEO PRODUCER Work Phone: [facility] 07-10-2024 15:15-0500 Body mass index (BMI) [Ratio] 16.63 kg/m2 Master Alexander DO Work Phone: [facility] 07-10-2024 15:15-0500 Body weight 39.92 kg Christopher Benjamin DO Work Phone: [facility] 07-10-2024 15:15-0500 Diastolic blood pressure 74 mm[Hg] Christopher Benjamin DO Work Phone: [facility] 07-10-2024 15:15-0500 Heart rate 119 /min Christopher Benjamin DO Work Phone: [facility] 07-10-2024 15:15-0500 SaO2% (BldA) [Mass fraction] 96 % Christopher Benjamin DO Work Phone: [facility] 07-10-2024 15:15-0500 Systolic blood pressure 118 mm[Hg] Christopher Benjamin DO Work Phone: [facility] 05-26-2024 10:54-0500 Body height 154.9 cm Shea Vogel MD Work Phone: [facility] 05-26-2024 10:54-0500 Body mass index (BMI) [Ratio] 16.59 kg/m2 Shea Vogel MD Work Phone: [facility] 05-26-2024 10:54-0500 Body weight 39.83 kg Shea Vogel MD Work Phone: [facility] 05-26-2024 10:54-0500 Diastolic blood pressure 70 mm[Hg] Shea Vogel MD Work Phone: [facility] 05-26-2024 10:54-0500 Heart rate 112 /min Shea Vogel MD Work Phone: [facility] 05-26-2024 10:54-0500 Respiratory rate 16 /min Shea Vogel MD Work Phone: [facility] 05-26-2024 10:54-0500 SaO2% (BldA) [Mass fraction] 98 % Shea Vogel MD Work Phone: [facility] 05-26-2024 10:54-0500 Systolic blood pressure 116 mm[Hg] Shea Vogel MD Work Phone: [facility] 05-18-2024 13:58-0500 Body mass index (BMI) [Ratio] 15.68 kg/m2 Shashi Sadaf-Nossek MANAGER CHANNEL-MUSIC VIDEO PRODUCER Work Phone: [facility] 05-18-2024 13:58-0500 Body weight 37.65 kg Shashi Sadaf-Nossek MANAGER CHANNEL-MUSIC VIDEO PRODUCER Work Phone: [facility] 05-18-2024 13:58-0500 Diastolic blood pressure 82 mm[Hg] Shashi Sadaf-Nossek MANAGER CHANNEL-MUSIC VIDEO PRODUCER Work Phone: [facility] 05-18-2024 13:58-0500 Heart rate 99 /min Shashi Sadaf-Nossek MANAGER CHANNEL-MUSIC VIDEO PRODUCER Work Phone: [facility] 05-18-2024 13:58-0500 SaO2% (BldA) [Mass fraction] 99 % Shashi Sadaf-Nossek MANAGER CHANNEL-MUSIC VIDEO PRODUCER Work Phone: [facility] 05-18-2024 13:58-0500 Systolic blood pressure 120 mm[Hg] Shashi Sadaf-Nossek MANAGER CHANNEL-MUSIC VIDEO PRODUCER Work Phone: [facility] 04-03-2024 13:46-0500 Body mass index (BMI) [Ratio] 15.15 kg/m2 Shashi Sadaf-Nossek MANAGER CHANNEL-MUSIC VIDEO PRODUCER Work Phone: [facility] 04-03-2024 13:46-0500 Body weight 36.38 kg Shashi Sadaf-Nossek MANAGER CHANNEL-MUSIC VIDEO PRODUCER Work Phone: [facility] 04-03-2024 13:46-0500 Diastolic blood pressure 82 mm[Hg] Shashi Sadaf-Nossek MANAGER CHANNEL-MUSIC VIDEO PRODUCER Work Phone: [facility] 04-03-2024 13:46-0500 Heart rate 110 /min Shashi Sadaf-Nossek MANAGER CHANNEL-MUSIC VIDEO PRODUCER Work Phone: [facility] 04-03-2024 13:46-0500 Systolic blood pressure 118 mm[Hg] Shashi Sadaf-Nossek MANAGER CHANNEL-MUSIC VIDEO PRODUCER Work Phone: [facility] 03-08-2024 08:46-0400 Body height 154.9 cm Shea Vogel MD Work Phone: [facility] 03-08-2024 08:46-0400 Body mass index (BMI) [Ratio] 14.06 kg/m2 Shea Vogel MD Work Phone: [facility] 03-08-2024 08:46-0400 Body weight 33.75 kg Shea Vogel MD Work Phone: [facility] 03-08-2024 08:46-0400 Diastolic blood pressure 62 mm[Hg] Shea Vogel MD Work Phone: [facility] 03-08-2024 08:46-0400 Heart rate 103 /min Shea Vogel MD Work Phone: [facility] 03-08-2024 08:46-0400 Respiratory rate 20 /min Shea Vogel MD Work Phone: [facility] 03-08-2024 08:46-0400 SaO2% (BldA) [Mass fraction] 99 % Shea Vogel MD Work Phone: [facility] 03-08-2024 08:46-0400 Systolic blood pressure 102 mm[Hg] Shea Vogel MD Work Phone: [facility] 02-23-2024 09:10-0400 Body height 154.9 cm Shea Vogel MD Work Phone: [facility] 02-23-2024 09:10-0400 Body mass index (BMI) [Ratio] 15.3 kg/m2 Shea Vogel MD Work Phone: [facility] 02-23-2024 09:10-0400 Body weight 36.74 kg Shea Vogel MD Work Phone: [facility] 02-23-2024 09:10-0400 Diastolic blood pressure 72 mm[Hg] Shea Vogel MD Work Phone: [facility] 02-23-2024 09:10-0400 Heart rate 62 /min Shea Vogel MD Work Phone: [facility] 02-23-2024 09:10-0400 Respiratory rate 18 /min Shea Vogel MD Work Phone: [facility] 02-23-2024 09:10-0400 SaO2% (BldA) [Mass fraction] 97 % Shea Vogel MD Work Phone: [facility] 02-23-2024 09:10-0400 Systolic blood pressure 116 mm[Hg] Shea Vogel MD Work Phone: [facility] 02-16-2024 11:15-0400 Body mass index (BMI) [Ratio] 15.57 kg/m2 Shea Vogel MD Work Phone: [facility] 02-16-2024 11:15-0400 Body weight 37.38 kg Shea Vogel MD Work Phone: [facility] 02-16-2024 11:15-0400 Diastolic blood pressure 72 mm[Hg] Shea Vogel MD Work Phone: [facility] 02-16-2024 11:15-0400 Heart rate 81 /min Shea Vogel MD Work Phone: [facility] 02-16-2024 11:15-0400 Respiratory rate 20 /min Shea Vogel MD Work Phone: [facility] 02-16-2024 11:15-0400 SaO2% (BldA) [Mass fraction] 99 % Shea Vogel MD Work Phone: [facility] 02-16-2024 11:15-0400 Systolic blood pressure 126 mm[Hg] Shea Vogel MD Work Phone: [facility] 02-01-2024 13:20-0400 Body height 154.9 cm Shea Vogel MD Work Phone: [facility] 02-01-2024 13:20-0400 Body mass index (BMI) [Ratio] 16.1 kg/m2 Shea Vogel MD Work Phone: [facility] 02-01-2024 13:20-0400 Body weight 38.65 kg Shea Vogel MD Work Phone: [facility] 02-01-2024 13:20-0400 Diastolic blood pressure 64 mm[Hg] Shea Vogel MD Work Phone: [facility] 02-01-2024 13:20-0400 Heart rate 86 /min Shea Vogel MD Work Phone: [facility] 02-01-2024 13:20-0400 Respiratory rate 20 /min Shea Vogel MD Work Phone: [facility] 02-01-2024 13:20-0400 SaO2% (BldA) [Mass fraction] 99 % Shea Vogel MD Work Phone: [facility] 02-01-2024 13:20-0400 Systolic blood pressure 112 mm[Hg] Shea Vogel MD Work Phone: [facility] 01-24-2024 14:56-0400 Body mass index (BMI) [Ratio] 16.25 kg/m2 Shashi Sadaf-Nossek MANAGER CHANNEL-MUSIC VIDEO PRODUCER Work Phone: [facility] 01-24-2024 14:56-0400 Body weight 39.01 kg Shashi Sadaf-Nossek MANAGER CHANNEL-MUSIC VIDEO PRODUCER Work Phone: [facility] 01-24-2024 14:56-0400 Diastolic blood pressure 76 mm[Hg] Shashi Sadaf-Nossek MANAGER CHANNEL-MUSIC VIDEO PRODUCER Work Phone: [facility] 01-24-2024 14:56-0400 Heart rate 88 /min Shashi Sadaf-Nossek MANAGER CHANNEL-MUSIC VIDEO PRODUCER Work Phone: [facility] 01-24-2024 14:56-0400 Systolic blood pressure 116 mm[Hg] Shashi Sadaf-Nossek MANAGER CHANNEL-MUSIC VIDEO PRODUCER Work Phone: [facility] 07-01-2023 13:36-0500 Body height 154.9 cm Saira Weston NP Work Phone: [facility] 07-01-2023 13:36-0500 Body mass index (BMI) [Ratio] 21.92 kg/m2 Saira Weston FISH PEDDLER Work Phone: [facility] 07-01-2023 13:36-0500 Body weight 52.62 kg Saira Weston FISH PEDDLER Work Phone: [facility] 07-01-2023 13:36-0500 Diastolic blood pressure 82 mm[Hg] Saira Weston FISH PEDDLER Work Phone: [facility] 07-01-2023 13:36-0500 Heart rate 78 /min Saira Weston FISH PEDDLER Work Phone: [facility] 07-01-2023 13:36-0500 Respiratory rate 18 /min Saira Weston FISH PEDDLER Work Phone: [facility] 07-01-2023 13:36-0500 SaO2% (BldA) [Mass fraction] 98 % Saira Weston FISH PEDDLER Work Phone: [facility] 07-01-2023 13:36-0500 Systolic blood pressure 128 mm[Hg] Saira Weston FISH PEDDLER Work Phone: [facility] Healthcare Encounters Encounter Date Encounter Type Care Provider Facility Start: 09-25-2024 End: 09-25-2024 Telephone encounter Master Alexander DO Work Phone: [facility] Start: 09-25-2024 End: 09-25-2024 Office outpatient visit 40 minutes Shashi Servin MANAGER CHANNEL-MUSIC VIDEO PRODUCER Work Phone: [facility] Comment on above: Generalized anxiety disorder (CMS/HCC); Insomnia, unspecified type Start: 09-25-2024 End: 09-25-2024 ambulatory SHASHI MICHELLESEK Not Available Start: 09-12-2024 End: 09-12-2024 Office outpatient visit 25 minutes Master Alexander DO Work Phone: [facility] Comment on above: Parkinson's disease without dyskinesia, unspecified whether manifestations fluctuate (CMS/HCC) (Primary Dx) Start: 09-12-2024 End: 09-12-2024 ambulatory MASTER ALEXANDER Not Available Start: 09-12-2024 End: 09-12-2024 Bamboo flowsheet Master Alexander DO Work Phone: [facility] [place] Start: 09-12-2024 End: 09-12-2024 Bamboo flowsheet Master Alexander DO Work Phone: [facility] [place] Start: 08-22-2024 End: 08-28-2024 Telephone encounter Bernadette Richard [facility] Comment on above: med questions [...] Office outpatient visit 25 minutes Sue Rosas NP Work Phone: [facility] Comment on above: Parkinson's disease without dyskinesia, unspecified whether manifestations fluctuate (CMS/HCC) (Primary Dx) Start: 08-08-2024 End: 08-08-2024 ambulatory SUE ROSAS Not Available Start: 07-17-2024 End: 07-17-2024 Office outpatient visit 40 minutes Shashi Michellesewilliam MANAGER CHANNEL-MUSIC VIDEO PRODUCER Work Phone: [facility] Comment on above: Generalized anxiety disorder (CMS/HCC); Recurrent major depressive disorder, in partial remission (HCC) (CMS/HCC); Panic disorder with agoraphobia (CMS/HCC); Insomnia, unspecified type Start: 07-17-2024 End: 07-17-2024 ambulatory SHASHI MICHELLESEWilliam Not Available Start: 07-17-2024 End: 07-17-2024 Bamboo flowsheet Shashi Talavera-Nossewilliam MANAGER CHANNEL-MUSIC VIDEO PRODUCER Work Phone: [facility] Start: 07-17-2024 End: 07-17-2024 Bamboo flowsheet Shashi Natarajan Sadaf-Nossek MANAGER CHANNEL-MUSIC VIDEO PRODUCER Work Phone: [facility] Start: 07-13-2024 End: 07-13-2024 Bamboo flowsheet Foreign Malicki SLEEVER [facility] Start: 07-13-2024 End: 07-13-2024 Bamboo flowsheet Foreign Malicki SLEEVER [facility] Start: 07-13-2024 End: 07-13-2024 ambulatory FOREIGN HARPERICKI Not Available Start: 07-11-2024 End: 07-11-2024 Telephone encounter Shea Vogel MD Work Phone: [facility] Start: 07-10-2024 End: 07-10-2024 Office outpatient new 45 minutes Master Alexander DO Work Phone: [facility] Comment on above: Parkinson's disease without dyskinesia or fluctuating manifestations (CMS/HCC) Start: 07-10-2024 End: 07-10-2024 ambulatory MASTER ALEXANDER Not Available Start: 07-10-2024 End: 07-10-2024 Bamboo flowsheet Master Alexander DO Work Phone: [facility] Start: 07-10-2024 End: 07-10-2024 Bamboo flowsheet Master Alexander DO Work Phone: [facility] Start: 06-26-2024 End: 06-26-2024 Bamboo flowsheet Foreign Gonzales SLEEVER [facility] Start: 06-26-2024 End: 06-26-2024 Bamboo flowsheet Foreign Gonzales SLEEVER [facility] Start: 06-26-2024 End: 06-26-2024 ambulatory FOREIGN GONZALES Not Available Start: 05-28-2024 End: 05-28-2024 Telephone encounter Shea Vogel MD Work Phone: [facility] Comment on above: Other (felt puller) Start: 05-26-2024 End: 05-26-2024 Bamboo flowsheet Shea [...] Start: 05-18-2024 End: 05-18-2024 Bamboo flowsheet Shashi Srevin MANAGER CHANNEL-MUSIC VIDEO PRODUCER Work Phone: [facility] Start: 05-18-2024 End: 05-18-2024 Bamboo flowsheet Shashi Servin MANAGER CHANNEL-MUSIC VIDEO PRODUCER Work Phone: [facility] Start: 05-18-2024 End: 05-18-2024 Office outpatient visit 40 minutes Shashi Michellesewilliam MANAGER CHANNEL-MUSIC VIDEO PRODUCER Work Phone: [facility] Comment on above: Generalized anxiety disorder (CMS/HCC); Moderate episode of recurrent major depressive disorder (CMS/HCC); Panic disorder with agoraphobia (CMS/HCC) Start: 05-18-2024 End: 05-18-2024 ambulatory SHASHI SERVIN Not Available Start: 04-03-2024 End: 04-03-2024 Bamboo flowsheet Shashi Talavera-Nossek MANAGER CHANNEL-MUSIC VIDEO PRODUCER Work Phone: [facility] Start: 04-03-2024 End: 04-03-2024 Bamboo flowsheet Shashi ReynoldsNossewilliam MANAGER CHANNEL-MUSIC VIDEO PRODUCER Work Phone: [facility] Start: 04-03-2024 End: 04-03-2024 Office outpatient visit 40 minutes Shashi Talavera-Elmosewilliam MANAGER CHANNEL-MUSIC VIDEO PRODUCER Work Phone: [facility] Comment on above: Recurrent major depr essive disorder, in partial remission (HCC) (CMS/HCC) (Primary Dx); Generalized anxiety disorder (CMS/HCC); Insomnia, unspecified type Start: 04-03-2024 End: 04-03-2024 ambulatory SHASHI SERVIN Not Available Start: 03-23-2024 End: 03-23-2024 ambulatory [facility] Start: 03-23-2024 End: 03-23-2024 ambulatory SHEA Ghosh [facility] Start: 03-15-2024 End: 03-15-2024 Telephone encounter Shea Vogel MD Work Phone: [facility] Start: 03-15-2024 End: 03-15-2024 ambulatory [facility] Start: 03-08-2024 End: 03-08-2024 Bamboo flowsheet Shea Vogel MD Work Phone: [facility] Start: 03-08-2024 End: 03-08-2024 Bamboo flowsheet Shea Vogel MD Work Phone: [facility] Start: 03-08-2024 End: 03-08-2024 Emergency department patient visit SHEA VOGEL [facility] Start: 03-08-2024 End: 03-08-2024 Office outpatient visit 25 minutes Shea Vogel MD Work Phone: [facility] Comment on above: Oropharyngeal dyspha marshall (Primary Dx); Weight loss Start: 03-08-2024 End: 03-08-2024 ambulatory SHEA VOGEL Not Available Start: 03-07-2024 End: 03-07-2024 ambulatory [facility] Start: 02-23-2024 End: 02-23-2024 Bamboo flowsheet [...] Office outpatient visit 40 minutes Shashi Servin MANAGER CHANNEL-GENERAL [facility] Work Phone: [facility] Comment on above: Generalized anxiety disorder (CMS/HCC); [...] Available Start: 12-24-2023 End: 12-24-2023 ambulatory DYLAN [facility] Start: 12-13-2023 End: 12-13-2023 ambulatory SHASHI SERVIN Not Available Start: 12-07-2023 End: 12-07-2023 ambulatory [facility] Start: 11-30-2023 End: 11-30-2023 ambulatory SYLVIE Trujillo [facility] Start: 11-30-2023 End: 11-30-2023 ambulatory [facility] Start: 11-25-2023 End: 11-25-2023 ambulatory SHEA VOGEL Not Available Start: 10-01-2023 End: 10-01-2023 ambulatory [facility] Start: 09-07-2023 End: 09-10-2023 Emergency department patient visit SHEA Ghosh JASPREET [facility] Start: 08-18-2023 End: 08-18-2023 ambulatory [facility] Start: 07-21-2023 End: 07-21-2023 ambulatory [facility] Start: 07-01-2023 Bamboo flowsheet Saira Weston FISH PEDDLER Work Phone: [facility] Start: 07-01-2023 Bamboo flowsheet Saira Weston FISH PEDDLER Work Phone: [facility] Start: 07-01-2023 Telephone encounter Saira maldonado FISH PEDDLER Work Phone: [facility] Comment on above: Medication Question Start: 07-01-2023 End: 07-01-2023 Office outpatient visit 15 minutes Saira Weston FISH PEDDLER Work Phone: [facility] Comment on above: Secondary parkinsoni sm, unspecified secondary Parkinsonism type (CMS/HCC) (Primary Dx); Dystonia; Muscle cramping Start: 08-26-2022 End: 08-27-[address] FRANKIE FIERRO . Facility: Start: 02-04-2017 End: 02-05-2017 Ambulatory [facility] Procedures Date Procedure Procedure Detail Performing Clinician Start: 07-13-2024 End: 07-13-2024 Psychotherapy w/patient 60 minutes Moderate episode of recurrent major depressive disorder (CMS/HCC) Foreign Gonzales SLEEVER Comment on above: Moderate episode of recurrent major depressive disorder (CMS/HCC); Generalized anxiety disorder (CMS/HCC); Panic disorder with agoraphobia (CMS/HCC) Start: 06-26-2024 End: 06-26-2024 Psychiatric diagnostic evaluation Moderate episode of recurrent major depressive disorder (CMS/HCC) Foreign Gonzales SLEEVER Comment on above: Moderate episode of recurrent [...] 10-01-2023 Follow-up visit Follow-up WILLIAN MERCADO Start: 10-15-2022 Mammography Saira Weston NP Work Phone: Start: 10-01-2022 H/O: hysterectomy H/O: hysterectomy Saira Weston NP Work Phone: Start: 10-08-2017 Colonoscopy Saira Weston NP Work Phone: Plan of Treatment Date Care Activity Detail Author Start: 10-09-2027 Screening for malign ant neoplasm of colon [facility] Healthcare Start: 01-10-2025 Screening for malign ant neoplasm of breast Mammogram [facility] Start: 11-14-2024 End: 11-14-2024 Patient encounter procedure 11/14/2024 1:00 PM EDT Office Visit [facility] [address] [facility] [address] [place] [address] Shashi Servin, MANAGER CHANNEL-MUSIC VIDEO PRODUCER [address] [place] [address] [place] [address] [facility] Start: 11-09-2024 End: 11-09-2024 Patient encounter procedure 11/09/2024 4:00 PM EDT Office Visit [facility] [address] [place] [phone] Rosas SueFADY [address] [place] [phone] [facility] Start: 10-19-2024 End: 10-19-2024 Patient encounter procedure 10/19/2024 11:20 AM EDT Office Visit [facility] [address] [place] [address] Shea Vogel MD [address] [place] [address] [facility] Start: 09-28-2024 End: 09-28-2024 Patient encounter procedure 09/28/2024 10:40 AM EDT Office Visit [facility] [address] [place] [address] Shea Vogel MD [address] [place] [address] [facility] Start: 09-25-2024 End: 09-25-2024 Patient encounter procedure 09/25/2024 11:30 AM EDT Office Visit [facility] [address] [facility] [address] [place] [address] Shashi Servin, MANAGER CHANNEL-MUSIC VIDEO PRODUCER [address] [facility] [address] [place] [address] [facility] Start: 09-12-2024 End: 09-12-2024 Patient encounter procedure [facility] Comment on above: Arrived Start: 08-28-2024 End: 08-28-2024 Patient encounter procedure 08/28/2024 3:00 PM EDT Office Visit [facility] PATRICIO [address] [facility] [address] [place] [phone] Master Alexander, [address] [place] [address] [facility] PATRIC[facility] Start: 08-21-2024 End: 08-21-2024 Patient encounter procedure [facility] Comment on above: Arrived Start: 07-31-2024 End: 07-31-2024 Social Work 07/31/2024 1:30 PM EDT Social Work [facility] [address] [facility] [address] [place] [phone] Foreign Gonzales LPC [facility] Start: [...] Office Visit [facility] [address] [place] [phone] Shea Vogel MD [address] [place], [place] [phone] Arrived [facility] Comment on above: Arrived Start: 05-24-2024 End: 05-24-2024 Patient encounter procedure 05/24/2024 11:00 AM EST Office Visit [facility] [address] [place] [address] Sue Cassidy NP [address] [place], [place] [phone] [facility] Start: 05-18-2024 End: 05-18-2024 [...] EDT Office Visit [facility] [address] [place] [phone] Shea Vogel MD [address] [place], [place] [phone] Arrived [facility] Comment on above: Arrived Start: 02-23-2024 End: 02-23-2024 Professional / ancillary services management 02/23/2024 9:00 AM EDT Ancillary Procedure [facility] [address] [phone] [facility] Start: 02-16-2024 End: 02-15-2025 [...] incontinence, unspecified type Expected: 02/16/2024, Expires: 02/15/2025 [facility] Healthcare Work Phone: Comment on above: Expected: 02/16/2024 , Expires: 02/15/2025 Start: 02-15-2024 End: 02-15-2024 Patient encounter procedure 02/15/2024 11:00 AM EDT Office Visit [facility] [address] [place] [phone] Shea Vogel MD [address] [place], [place] [phone] [facility] Start: 01-24-2024 End: 01-24-2024 Patient encounter procedure 01/24/2024 3:00 PM EDT Office Visit [facility] [address] [address] Shashi Servin, MANAGER CHANNEL-MUSIC VIDEO PRODUCER [address] [facility] [address] [place] [address] [facility] Start: 01-16-2024 Influenza vaccination Influenza Vacc ine (#1) [facility] Start: 01-07-2024 Medicare Annual Well ness (AWV) Medicare Annual Wellness (AWV) [facility] Start: 10-16-2023 Screening for malign ant neoplasm of breast Mammogram [facility] Start: 08-12-2023 End: 08-12-2023 Patient encounter procedure 08/12/2023 11:00 AM EDT Office Visit [facility] [address] [place] [phone] Saira Weston NP [address] [facility] [place] [address] [facility] Start: 07-27-2023 End: 07-27-2023 Patient encounter procedure 07/27/2023 11:00 AM EDT Office Visit [facility] [address] [facility] [address] [place] [address] Shashi Servin, MANAGER CHANNEL-GENERAL [facility] [address] [facility] [address] [place] [address] [facility] Start: 07-19-2023 End: 07-19-2023 Patient encounter procedure 07/19/2023 2:00 PM EST Office Visit [facility] [address] [place] [id number] Hoang Eddy, DPM [address] [place] [address] [facility] Start: 07-01-2023 End: 07-01-2023 Patient encounter procedure 07/01/2023 1:30 PM EST Office Visit [facility] [address] [place] [id number] Saira Weston NP [address] [place] [address] Arrived [facility] Comment on above: Arrived Start: 1955 Screening for malign ant neoplasm of colon [facility] Bacteria identified in Urine by Culture URINE CULTURE, ROUTINE Lab Routine 01/21/2024 3:52 PM EDT [facility] Immunizations Immunization Date Immunization Notes Care Provider Michel paredes 02-01-2024 influenza, high dose seasonal, preservative-free Shea Vogel MD Work Phone: [facility] 05-13-2023 Influenza, High-dose Seasonal, Quadrivalent, Preservative Free Saira Weston NP Work Phone: [facility] 05-13-2023 influenza virus vacc ine, unspecified formulation Shea Vogel MD Work Phone: [facility] 01-06-2023 pneumococcal conjuga te vaccine, 13 valent Saira Weston FISH PEDDLER Work Phone: [facility] 04-16-2022 Moderna SARS-CoV-2 50mcg/0.5mL Booster Saira Weston FISH PEDDLER Work Phone: [facility] 02-09-2022 influenza, injectabl e, quadrivalent, preservative free Saira Weston FISH PEDDLER Work Phone: [facility] 04-04-2021 Pfizer Purple Cap SARS-CoV-2 Vaccination Saira Weston FISH PEDDLER Work Phone: [facility] 02-12-2021 Influenza, High-dose Seasonal, Quadrivalent, Preservative Free Saira Weston FISH PEDDLER Work Phone: [facility] 05-02-2020 Influenza, High-dose Seasonal, Quadrivalent, Preservative Free Saira Weston FISH PEDDLER Work Phone: [facility] 05-02-2020 pneumococcal polysaccharide vaccine, 23 valent Saira Weston FISH PEDDLER Work Phone: [facility] 09-30-2019 zoster vaccine recombinant L uann Weston FISH PEDDLER Work Phone: [facility] 07-28-2019 zoster vaccine recombinant L uann Weston FISH P[employer]DLER Work Phone: [facility] 03-23-2019 influenza, injectabl e, quadrivalent, preservative free Saira Weston FISH PEDDLER Work Phone: [facility] 03-30-2018 influenza, injectabl e, quadrivalent, preservative free Saira Weston FISH PEDDLER Work Phone: [facility] 03-11-2017 influenza, injectabl e, quadrivalent, preservative free Saira Weston FISH PEDDLER Work Phone: [facility] 02-20-2016 influenza, injectabl e, quadrivalent, preservative free Saira Weston FISH PEDDLER Work Phone: [facility] Payers Date Payer Category Payer Private Health Insurance [employer] [id number] 2021 Unknown [employer] [id number] 2021-Present [address] [place] [address] [id number] 2019 Medicare [id number] 1959 Medicare [id number] 1959 Unknown [id number] 1954 Unknown [id number] 2.16.840.1.944430.3.579.2. 593 1954 Unknown [id number] 2.16.840.1.951005.3.579.2. 1285 1954 Unknown [id number] 2.16.840.1.176830.3.579.2. 128 1954 Unknown [id number] 2.16.840.1.154296.3.579.2. 128 1954 Unknown [id number] 2.16.840.1.301404.3.579.2. 128 1954 Unknown [id number] 2.16.840.1.654488.3.579.2. 128 1954 Unknown [id number] 2.16.840.1.448174.3.579.2. 128 1954 Unknown [id number] 2.16.840.1.027924.3.579.2. 1286 1954 Unknown [id number] 2.16.840.1.622612.3.579.2. 1285 1954 Unknown [id number] 2.16.840.1.182034.3.579.2. 128 1954 Unknown [id number] 2.16.840.1.457723.3.579.2. 1285 1954 Unknown [id number] 2.16.840.1.682223.3.579.2. 1285 1954 Unknown [id number] 2.16840.1.714856.3.579.2. 1285 1954 Unknown [id number] 2.16840.1.149515.3.579.2. 1285 1954 Unknown [id number] 2.840.1.465383.3.579.2. 1258 1954 Unknown [id number] 2.840.1.627320.3.579.2. 1258 1954 Unknown [id number] 2.840.1.599513.3.579.2. 1258 1954 Unknown [id number] 2.840.1.414985.3.579.2. 1258 1954 Unknown [id number] 2.840.1.128956.3.579.2. 1258 1954 Unknown [id number] 2.16.840.1.514372.3.579.2. 1258 1954 Unknown [id number] 2.16840.1.850923.3.579.2. 1258 1954 Unknown [id number] 2.16.840.1.951684.3.579.2. 1258 1954 Unknown [id number] 2.16840.1.649577.3.579.2. 1259 1955 Unknown [id number] 2.16.840.1.040428.3.579.2. 1258 1954 Unknown [id number] 2.16.840.1.492331.3.579.2. 1258 1954 Unknown [id number] 2.16.840.1.022416.3.579.2. 1258 1954 Unknown [id number] 2.16.840.1.735812.3.579.2. 1258 1954 Unknown [id number] 2.16.840.1.084848.3.579.2. 1258 1954 Unknown [id number] 2.16.840.1.831191.3.579.2. 1258 1954 Unknown [id number] 2.16.840.1.994472.3.579.2. 1258 1954 Unknown [id number] 2.16.840.1.758834.3.579.2. 1258 1954 Unknown [id number] 2.16.840.1.442189.3.579.2. 1258 1954 Unknown [id number] 2.16.840.1.929388.3.579.2. 1258 1954 Unknown [id number] 2.16840.1.684357.3.579.2. 1258 1954 Unknown [id number] 2.16.840.1.862800.3.579.2. 1258 1954 Unknown [id number] 2.16840.1.306951.3.579.2. 1259 Social History Date Type Detail Facility Start: 09-26-2022 Tobacco smoking status LAIS Never sm oked tobacco [facility] Start: 09-26-2022 Tobacco use and exposure Smoke less tobacco non-user [facility] Start: 06-01-2023 End: 09-25-2024 Alcohol intake Ex-drinker (finding) [facility] Start: 10-05-2022 End: 07-17-2024 History of Social function [facility] Start: 10-05-2022 End: 07-17-2024 Alcohol Use Disorder Identification Test - Consumption [AUDIT-C] [facility] How often to you hav e a drink containing alcohol? Never [facility] How many standard dr inks containing alcohol do you have on a typical day? Patient does not drink [facility] Start: 04-14-2023 Alcohol Comment none, Caffeine intake: none [facility] Start: 1955 Sex Assigned At Not on file [facility] Clinical Notes 09-11-2021 to 09-25-2024 Telephone Encounter - Humberto Whitehead - 09/25/2024 4:17 PM EDTTelephone Encounter - Humberto Whitehead - 09/25/2024 4:17 PM EDTTelephone Encounter - Vinita Ray - 09/25/2024 3:50 PM EDTPatient Instructions Note Date & Type Note Facility 09-25-2024 Telephone encounter Note Nurse from Assisted living called regarding Gabapentin- She said we mostly prescribed it for Anne or there was one other Dr ,that did as well . So it would be up to Dr Vogel or other Dr to say wether she should be taking it or not . Ty [facility] 09-25-2024 Miscellaneous Notes Nurse from [facility] living called regarding Gabapentin- She said we mostly prescribed it for Anne or there was one other Dr ,that did as well . So it would be up to Dr Vogel or other Dr to say wether she should be taking it or not . Ty documented in this encounter [facility] 09-25-2024 Telephone encounter Note [facility] called to clarify on note below. They refilled the Gabepentin in May from 100 mg to 300 mg TID and has not had it since july. After speaking with Yayo we did not prescribe this. [facility] 09-25-2024 Miscellaneous Notes [facility] office called to clarify on note below. They refilled the Gabepentin in May from 100 mg to 300 mg TID and has not had it since july. After speaking with Yayo we did not prescribe this. Anne @ [facility] calls to verify if patient should be on gabapentin or not , please advise CB # [phone] documented in this encounter [facility] 09-25-2024 Telephone encounter Note Anne @ [facility] calls to verify if patient should be on gabapentin or not , please advise CB # [phone] [facility] Work Phone: 09-12-2024 History of Present illness Narrative Images [...] FRACTURE SURGERY Left 09/14/2021 HYSTERECTOMY 2005 Total SD LASER SURGERY OF EYE Right 02/2019 TUBAL [...] wrist extensors , wrist flexor , and division roadmaster strength 5/5. LUE strength deltoid , biceps , triceps , wrist extensors , wrist flexor , and division roadmaster strength 5/5. RLE strength iliopsoas, quadriceps, tibialis [...] reflex 0. LLE knee reflex 0. Coordination: Ewxsrn-ph-qgqw testing normal. Rapid alternating movements are normal. Gait: Not assessed, as the patient presents in a wheelchair today. Review and summary of old records: Patient was previously seen by Neurology in [place], Dr. Delacruz, and his recommendations were as [...] disease without dyskinesia, unspecified whether manifestations fluctuate ([facility]) Ms. Gregg is a 68-year-old female who [...] Parkinson's disease with the patient and her aopldn-kt-ffm in detail today. In particular, we discussed [...] All questions answered. The patient and her kxgcuw-if-rxf verbalizes understanding and are agreeable to the plan. Discussion in layman's terms. Follow up in the office within 2 month; sooner if needed for new or worsening symptoms. documented in this encounter [facility] 08-24-2024 Miscellaneous Notes Yes, we did discuss that. I will order. Patient's llzfpp-re-csi, jeb Fong. States that at the last office visit, Fabiana was discuss and she would like to try this after all. Asking for this to be sent to the pharmacy. Call back [phone] documented in this encounter [facility] 08-24-2024 Telephone encounter Note Yes, we did discuss that. I will order. [facility] 08-22-2024 Telephone encounter Note Patient's sxsuxp-nl-hcq, jeb Fong. States that at the last office visit, Fabiana was discuss and she would like to try this after all. Asking for this to be sent to the pharmacy. Call back [phone] [facility] 08-21-2024 History of Present illness Narrative Images [...] FRACTURE SURGERY Left 09/14/2021 HYSTERECTOMY 2005 Total SD LASER SURGERY OF EYE Right 02/2019 TUBAL [...] in 3 month documented in this encounter [facility] 08-16-2024 Telephone encounter Note Woo left at 2:16 pm Hi, this is Pedro calling from [employer]. And I had fixed over a facts asking for a you a in [place] for Mirian Pedroza. Because she is showing some signs of confusion. And I was just hoping I could get the to sign it and fix it back to me. Um, if you have any questions, it is [phone] and ask For Peg. I am the nurse. And the fax number is [phone]. Thank you, ricardo. [facility] 08-16-2024 Miscellaneous Notes Woo left at 2:16 pm Hi, this is Pedro calling from [employer]. And I had fixed over a facts asking for a you a in [place] for Mirian Pedroza. Because she is showing some signs of confusion. And I was just hoping I could get the drOctavio to sign it and fix it back to me. Um, if you have any questions, it is [phone] and ask For Peg. I am the nurse. And the fax number is [phone]. Thank you, ricardo. documented in this encounter [facility] 08-10-2024 Telephone encounter Note Melida from [facility] calling to ask if you would follow for home health orders. I told her you would follow. [facility] 08-10-2024 Miscellaneous Notes Melida from [facility] calling to ask if you would follow for home health orders. I told her you would follow. documented in this encounter [facility] 08-08-2024 History of Present illness Narrative Images from the original note were not included. Chief Complaint Patient presents with Parkinson's Disease Subjective Mirian Gregg is a 68 y.o. female. History of Present Illness The patient presents today for follow-up for Parkinson's disease. She is accompanied by her vdwhjo-ch-doi, Betsy. She is taking Sinemet IR 25-100 [...] FRACTURE SURGERY Left 09/14/2021 HYSTERECTOMY 2005 Total SD LASER SURGERY OF EYE Right 02/2019 TUBAL [...] wrist extensors , wrist flexor , and division roadmaster strength 5/5. LUE strength deltoid , biceps , triceps , wrist extensors , wrist flexor , and division roadmaster strength 5/5. RLE strength iliopsoas, quadriceps, tibialis [...] reflex 0. LLE knee reflex 0. Coordination: Sbiocu-th-rcpl testing normal. Rapid alternating movements are normal. Gait: Not assessed, as the patient presents in a wheelchair today. Review and summary of old records: Patient was previously seen by Neurology in [place], Dr. Delacruz, and his recommendations were as [...] disease without dyskinesia, unspecified whether manifestations fluctuate ([facility]) Ms. Gregg is a 68-year-old female who [...] Parkinson's disease with the patient and her lnomcr-vi-uxg in detail today. In particular, we discussed [...] concerns regarding her weight and low BMI. Qdquoe-fn-jch states the patient weighed as little at [...] All questions answered. The patient and her mlhlud-ma-tne verbalizes understanding and are agreeable to the plan. Discussion in layman's terms. Follow up in the office within 1 month; sooner if needed for new or worsening symptoms. Sue Rosas NP [facility] Advanced Neurology documented in this encounter [facility] 08-08-2024 Instructions Sue Rosas NP - 08/08/2024 1:20 PM EDT - Referral to physical therapy and occupational therapy documented in this encounter [facility] 07-17-2024 History of Present illness Narrative Images [...] FRACTURE SURGERY Left 09/14/2021 HYSTERECTOMY 2005 Total SD LASER SURGERY OF EYE Right 02/2019 TUBAL [...] as Nurse Practitioner (Family Medicine) Shashi Servin APRN-MUSIC VIDEO PRODUCER as Nurse Practitioner (Psychiatry) Foreign Gonzales LPC as Bacteriology Teacher (Behavioral Health) PSYCHIATRIC REVIEW OF SYMPTOMS AND [...] in law will attempt follow with Dr Vogel re physical complaints And neuro Reviewed med list [...] to Face, Total time spent with patient [id number] , which includes reviewing chart documents, previous notes/records, counseling and discussion with patient and/or coordination of care as described above. documented in this encounter [facility] 07-11-2024 Telephone encounter Note Brian from [facility] called to inform that pt is being discharged from home health today. [facility] 07-11-2024 Miscellaneous Notes Brian from [facility] called to inform that pt is being discharged from home health today. documented in this encounter [facility] 07-10-2024 History of Present illness Narrative Images from the original note were not included. Chief complaint: Parkinson's disease Subjective Mirian Gregg, 68 y.o., female Patient presents today for [...] headaches. Past Medical History: Diagnosis Date Depression (CMS/HCC) [...] FRACTURE SURGERY Left 09/14/2021 HYSTERECTOMY 2005 Total SD LASER SURGERY OF EYE Right 02/2019 TUBAL [...] CN II: Visual acuity is normal. Visual georegs full to confrontation. CN III, IV, : [...] , wrist extensors , wrist flexor , division roadmaster strength 5/5. LUE Strength deltoid , biceps , triceps , wrist extensors , wrist flexor , division roadmaster strength 5/5. RLE Strength illopsoas, quadriceps, tibialis [...] reflex 0 . Mcnamara's sign negative. Coordination: Cnbrdm-cs-qzdp testing and rapid alternating movements are normal Gait: Wheelchair-bound Review and summary of old records: Patient was previously seen by Neurology in [place], Dr. Delacruz, and his recommendations were as [...] and could lead to falls. The patient's ombthf-gf-iwe, Hetal, accompanies the patient to the visit [...] mental health issues documented in this encounter [facility] 05-28-2024 Telephone encounter Note D/w staff [facility] 05-28-2024 Miscellaneous Notes D/w staff Subjective Patient ID: Anne Gregg is a 68 y.o. female, Pt nurse Anne GONZALES from [facility] called stating the pt fell this morning and was taken to [facility], She recently returned to the facility with 3 fractured ribs and the Nurse is requesting a call back for further plan of care at [phone]. documented in this encounter [facility] 05-28-2024 Telephone encounter Note Subjective Patient ID: Anne Gregg is a 68 y.o. female, Pt nurse Anne GONZALES from [facility] called stating the pt fell this morning and was taken to [facility], She recently returned to the facility with 3 fractured ribs and the Nurse is requesting a call back for further plan of care at [phone]. [facility] 05-26-2024 History of Present illness Narrative Images [...] no longer experiencing vomiting. She saw a customer orders clerk who conducted tests but did not find [...] FRACTURE SURGERY Left 09/14/2021 HYSTERECTOMY 2005 Total SD LASER SURGERY OF EYE Right 02/2019 TUBAL [...] new symptoms emerge. documented in this encounter [facility] 05-18-2024 History of Present illness Narrative [...] HISTORY: Past Medical History: Diagnosis Date Depression ([facility]/HCC) Endometrial cancer ([facility]/HCC) 2004 History of being hospitalized 08/2022 [facility] days History of being hospitalized 04/2022 [facility] x14 days History of psychiatric hospitalization [facility] 06/2022 and 04/2022 Nontoxic multinodular goiter ([facility]/HCC) Osteoporosis ([facility]/HCC) Parathyroid adenoma Parkinson's disease (CMS/HCC) Spinal stenosis Thyroid nodule ([facility]/HCC) Vitamin D deficiency ALLERGIES: Allergies Allergen Reactions Bupropion Unknown SURGICAL HISTORY: Past Surgical History: Procedure Laterality Date BONE MARROW BIOPSY 07/10/2022 L1 BREAST BIOPSY Right 2003 COLONOSCOPY 2009 FIXATION KYPHOPLASTY LUMBAR SPINE 07/10/2022 Balloon Kyphoplasty w elevation of fracture and cement augmentation of L1 vertebral body HIP FRACTURE SURGERY Left 09/14/2021 HYSTERECTOMY 2005 Total SD LASER SURGERY OF EYE Right 02/2019 TUBAL [...] and Time Memory/Concentration Short term intact and shelter intact Insight/Judgement Good OBJECTIVE: Visit Vitals Smoking [...] up 2 months documented in this encounter [facility] 04-03-2024 History of Present illness Narrative Images from the original note were not included. Mirian Gregg is a 68 y.o. female presents for Medication Management. HPI: Patient is here for medication follow up. Here with her sister in law. Patient states mood is terrible. She feels staff [facility] dont listen to her. Mood depressed about [facility]. Agreed to try to increase. Anxiety is [...] Parkinson's disease (CMS/HCC) Spinal stenosis Thyroid nodule ([facility]/HCC) Vitamin D deficiency ALLERGIES: Allergies Allergen Reactions Bupropion Unknown SURGICAL HISTORY: Past Surgical History: Procedure Laterality Date BONE MARROW BIOPSY 07/10/2022 L1 BREAST BIOPSY Right 2003 COLONOSCOPY 2008 FIXATION KYPHOPLASTY LUMBAR SPINE 07/10/2022 Balloon Kyphoplasty w elevation of fracture and cement augmentation of L1 vertebral body HIP FRACTURE SURGERY Left 09/14/2021 HYSTERECTOMY 2005 Total SD LASER SURGERY OF EYE Right 02/2019 TUBAL [...] Never Depression: At risk (03/07/2024) Received from [facility] PHQ-2 Total Score: 9 REVIEW OF [...] and Person Memory/Concentration Short term intact and shelter intact Insight/Judgement Fair OBJECTIVE: Visit Vitals Smoking [...] F/U 6 weeks documented in this encounter [facility] 03-15-2024 Telephone encounter Note KAUR Torres from [facility] Called to inform you that they will continue HH Therapy 1x per week x8wk [phone] if needed. [facility] 03-15-2024 Miscellaneous Notes KAUR Torres from [facility] Called to inform you that they will continue HH Therapy 1x per week x8wk [phone] if needed. documented in this encounter [facility] 03-08-2024 History of Present illness Narrative Mirian [...] FRACTURE SURGERY Left 09/14/2021 HYSTERECTOMY 2005 Total SD LASER SURGERY OF EYE Right 02/2019 TUBAL [...] Never Depression: At risk (03/07/2024) Received from [facility] PHQ-2 Total Score: 9 REVIEW OF SYMPTOMS: [...] yet. She has an appointment with a customer orders clerk next Wednesday and an ERCP scheduled for [...] Relevant Orders Ambulatory referral to Speech Therapy LEAD REFINERY SUPERVISOR videofluoroscopic swallow study Ambulatory referral to Nutrition [...] bettween meals , swallow study , consult retail cashier associate and speech therapy Due to severity of symptoms and delays in testing recommend er visit to see if she mets criteria for admission Recheck in 3 days documented in this encounter [facility] 02-23-2024 History of Present illness Narrative Mirian [...] FRACTURE SURGERY Left 09/14/2021 HYSTERECTOMY 2005 Total SD LASER SURGERY OF EYE Right 02/2019 TUBAL [...] for her food preferences. Order placed for retail cashier associate c/s on ecf forms 2. Panic attacks. [...] for follow up. documented in this encounter [facility] 02-16-2024 History of Present illness Narrative [...] She has a scheduled appointment with a customer orders clerk in May 2023. She still has her [...] FRACTURE SURGERY Left 09/14/2021 HYSTERECTOMY 2005 Total SD LASER SURGERY OF EYE Right 02/2019 TUBAL [...] 4. Gastroenterology Referral. A referral to a customer orders clerk in [place] has been arranged to expedite her evaluation, as her current appointment is scheduled for May. Follow-up Return in 1 week for follow up. documented in this encounter [facility] 02-08-2024 Telephone encounter Note Resert done 01/20- OT is continuing Kandis rogel from [facility] calling with the update, Order will be faxed over to follow up this call. [facility] 02-08-2024 Miscellaneous Notes Resert done OT is continuing Kandis rogel from [facility] calling with the update, Order will be faxed over to follow up this call. documented in this encounter [facility] 02-07-2024 Telephone encounter Note Houston from [facility] calling to let you know that he received referral for wheelchair brake extensions and they are unable to take care of this because her wheelchair came from another company. They can do it but it would be out of pocket for patient. [facility] 02-07-2024 Miscellaneous Notes Houston from [facility] calling to let you know that he received referral for wheelchair brake extensions and they are unable to take care of this because her wheelchair came from another company. They can do it but it would be out of pocket for patient. documented in this encounter [facility] 02-01-2024 History of Present illness Narrative Images from the original note were not included. Mirian Gregg is a 68 y.o. female presents with chief complaint of ER Follow-up (Patient presents today for ER follow up. Patient was seen 01/21/24 for Nausea and Vomiting at [facility].) HPI: HPI Flowsheet Row Patient Outreach from 01/27/2024 in [facility] with Carolina Maldonado RN Hospital Information Discharged To: -- [returned to the [facility]] Discharge Hospital [facility] Diagnosis nausea and vomiting Discharge Date 01/21/24 [...] FRACTURE SURGERY Left 09/14/2021 HYSTERECTOMY 2005 Total [place] LASER SURGERY OF EYE Right 02/2019 TUBAL [...] Orders Flu vaccine, high dose seasonal, PF (ZGD408) (Fluzone High Dose) (Completed) Assessment & Plan 1. Nausea and vomiting. Her weight loss is a concern, potentially linked to her gastrointestinal symptoms. An antacid medication will be initiated to alleviate her symptoms. A referral to Dr. Garner, a customer orders clerk in [place], has been made for further evaluation. She [...] aggravating her symptoms. Further evaluation by a customer orders clerk is warranted. 3. Weight loss. Her weight [...] in 2 weeks. 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 Patient was seen Face to Face, Reviewed chart documents and documentation, Visit time : 50min F/U / months documented in this encounter [facility] 01-24-2024 Telephone encounter Note [facility] Home health Pt is having difficulty engaging brakes on wheelchair. Nurse is requesting a rx for brake extenstions, and fax to [facility] TONY Fax- [phone] [facility] 01-24-2024 Miscellaneous Notes [facility] Home health Pt is having difficulty engaging brakes on wheelchair. Nurse is requesting a rx for brake extenstions, and fax to [facility] TONY Fax- [phone] documented in this encounter [facility] 01-19-2024 Telephone encounter Note LAWRENCE Torres, PT of [facility] calling, Going to [facility] for home health 1 per wk x 9 weeks Pt had a fall in the br when transfering and got assistance from staff, states she is not injured. [phone] [facility] 01-19-2024 Miscellaneous Notes LAWRENCE Torres PT of [facility] calling, Going to [facility] for home health 1 per wk x 9 weeks Pt had a fall in the br when transfering and got assistance from staff, states she is not injured. [phone] documented in this encounter [facility] 07-01-2023 Telephone encounter Note PC from [facility] received Rx for Baclofen 20mg, is questioning if you want her started off with 10mg and then go up? Her call back is [phone]. Thank you! [facility] 07-01-2023 Miscellaneous Notes PC from [facility] received Rx for Baclofen 20mg, is questioning if you want her started off with 10mg and then go up? Her call back is [phone]. Thank you! documented in this encounter [facility] 07-01-2023 History of Present illness Narrative [...] HISTORY: Past Medical History: Diagnosis Date Depression ([facility]) Endometrial cancer ([facility]/HCC) 2004 History of being hospitalized 08/2022 [facility] History of being hospitalized 04/2022 [facility] days History of psychiatric hospitalization [facility] 06/2022 and 04/2022 Nontoxic multinodular goiter (CMS/HCC) Osteoporosis (CMS/HCC) Parathyroid adenoma Parkinson's disease Spinal stenosis Thyroid nodule (CMS/HCC) Vitamin D deficiency Social History Tobacco Use [...] FRACTURE SURGERY Left 09/14/2021 HYSTERECTOMY 2005 Total [place] LASER SURGERY OF EYE Right 02/2019 TUBAL [...] follow-ups on file. documented in this encounter [facility] 09-11-2021 Note HISTORY: Multiple fa lls [...] signed by Kieran Caputo on 09/11/2021 [address] [facility] Copy Cutter Evaluation note Diagnosis Secondary parkinsonism, unspecified secondary Parkinsonism type (CMS/HCC)- Primary Dystonia Abnormal involuntary movements Muscle cramping documented in this encounter [facility]* Diagnosis Chronic gastritis without bleeding, unspecified gastritis type- Primary Urinary incontinence, unspecified type Weight loss Loss of weight Hematuria, unspecified type documented in this encounter [facility] HealthcareEvaluation note* Diagnosis Acute cystitis without hematuria- Primary Weight loss Loss of weight Panic attack (CMS/HCC) Panic disorder without agoraphobia Generalized anxiety disorder (CMS/HCC) Generalized anxiety disorder Adjustment disorder with anxious mood (CMS/HCC) Adjustment disorder with anxiety Open-angle glaucoma, mild stage, unspecified laterality, unspecified open-angle glaucoma type (CMS/HCC) Major depressive disorder, single episode, moderate (HCC) (CMS/HCC) Major depressive disorder, single episode, moderate [facility] Diagnosis Abnormal gallbladder ultrasound- Primary Abdominal pain with vomiting Weight loss Loss of weight documented in this encounter [facility]* Diagnosis Oropharyngeal dysphagia- Primary Dysphagia, oropharyngeal phase Weight loss Loss of weight documented [facility]* Diagnosis Recurrent major depressive disorder, in partial remission (HCC) (CMS/HCC)- Primary Generalized anxiety disorder (CMS/HCC) Generalized anxiety disorder Insomnia, unspecified type documented [facility]* Diagnosis Chronic gastritis without bleeding, unspecified gastritis type- Primary Encounter for immunization documented in this [facility]* Diagnosis Generalized anxiety disorder (CMS/HCC) Generalized anxiety disorder Insomnia, unspecified type [facility]* Diagnosis Generalized anxiety disorder (CMS/HCC) Generalized anxiety disorder Moderate episode of recurrent major depressive disorder (CMS/HCC) Panic disorder with agoraphobia ([facility]/HCC) Agoraphobia with panic disorder documented in [...] episode of recurrent major depressive disorder (CMS/HCC) Panic disorder with agoraphobia (CMS/HCC) Agoraphobia with panic disorder Generalized anxiety disorder (CMS/HCC) Generalized anxiety disorder [facility]* Diagnosis Parkinson's disease without dyskinesia or fluctuating manifestations (CMS/HCC) documented [facility] encounter [facility]* Diagnosis Moderate episode of recurrent major depressive disorder (CMS/HCC) Generalized anxiety disorder (CMS/HCC) Generalized anxiety disorder Panic disorder with agoraphobia (CMS/HCC) Agoraphobia with panic disorder documented [facility]* Diagnosis Generalized anxiety disorder (CMS/HCC) Generalized anxiety disorder Recurrent major depressive disorder, in partial remission (HCC) (CMS/HCC) Panic disorder with agoraphobia ([facility]) Agoraphobia with panic disorder Insomnia, unspecified type documented [facility] encounter [facility]* Diagnosis Weight loss- Primary Loss of weight Recurrent major depressive disorder, in partial remission (HCC) ([facility]) Age-related osteoporosis with current pathological fracture, initial encounter ([facility]) Current mild episode of major depressive disorder without prior episode (HCC) ([facility]) Parkinson's disease with fluctuating manifestations, unspecified whether dyskinesia present ([facility]) documented [facility]* Diagnosis Parkinson's disease without dyskinesia, unspecified whether manifestations fluctuate ([facility])- Primary documented in this encounter [facility]* Diagnosis Parkinson's disease without dyskinesia, unspecified whether manifestations fluctuate ([facility])- Primary documented in this encounter [facility]* Diagnosis Parkinson's disease without dyskinesia, unspecified whether manifestations fluctuate ([facility])- Primary documented in this encounter [facility]* Diagnosis Generalized anxiety disorder ([facility]) Generalized anxiety disorder Insomnia, unspecified type [facility]narrative)* Consultation (Routine) - Pending Review Specialty Diagnoses / Procedures Referred By Contac t Referred To Contact Pain Medicine Diagnoses Secondary parkinsonism, unspecified secondary Parkinsonism type ([facility]) Dystonia Muscle cramping Procedures SD OFFICE/OUTPATIENT NEW HIGH MDM 60 MINUTES Saira Weston NP [address] [place] [address] Unallocated, [facility] Provider [facility] [place] [address] Referral ID Status Reason Start Date Expiration Date Visits Requested Visits Authorized [id number] Pending Review Specialty Services Required 07/01/2023 12/28/2023 1 [facility] Consultation (Routine) - Pending Review Specialty Diagnoses / Procedures Referred By Contac t Referred To Contact Gastroenterology Diagnoses Chronic gastritis without bleeding, unspecified gastritis type Procedures SD OFFICE/OUTPATIENT NEW [facility] MDM 60 MINUTES Shea Vogel MD [address] [place] [address] Joshua Muhammad MD [address] [facility], [address] [place] [address] Referral ID Status Reason Start Date Expiration Date Visits Requested Visits Authorized [id number] Pending Review Specialty Services Required 02/16/2024 08/14/2024 1 1 MADONNA Harding for referral (narrative)* Consultation (Routine) - Pending Review Specialty Diagnoses / Procedures Referred By Contac t Referred To Contact Gastroenterology Diagnoses Chronic gastritis without bleeding, unspecified gastritis type Procedures [place] OFFICE/OUTPATIENT NEW [facility]IGH [facility] 60 MINUTES Shea Vogel MD [address] [place] [address] Karina Vásquez DO [address] [place] [address] Referral ID Status Reason Start Date Expiration Date Visits Requested Visits Authorized [id number] Pending Review Specialty Services Required 02/01/2024 07/30/2024 1 1 MADONNA Harding for visit Narrative* Consultation (Routine) - Closed Specialty Diagnoses / Procedures Referred By Contac t Referred To Contact Neurology Diagnoses Parkinson's disease without dyskinesia or fluctuating manifestations (CMS/HCC) Procedures SD OFFICE/OUTPATIENT NEW [facility] 60 MINUTES Shea Vogel MD [address] [place] [address] Phone: tel: fax: Manuel Culver MD [address] [place] [address] Phone: tel: fax: Referral ID Status Reason Start Date Expiration Date V isits Requested Visits Authorized [id number] Closed Consult and Treat 05/26/2024 11/22/2024 1 1 [facility] Summary Purpose Family History No Family History [...] w contrast MRCP Shea Vogel MD [address] [place] [address] [facility] Referral ID Status Reason Start Date Expiration Date V isits Requested Visits Authorized [id number] Pending Review 02/23/2024 08/21/2024 1 1 Additional Source Comments INFORMATION SOURCE (unrecogn ized section and content) DATE CREATED AUTHOR 11/10/2017 [facility] DATE CREATED AUTHOR AUTHOR'S ORGANIZ ATION 02/16/2022 [facility] dical Specialist DATE CREATED AUTHOR AUTHOR'S ORGANIZ ATION 08/31/2022 [facility] DATE CREATED AUTHOR AUTHOR'S ORGANIZ ATION 03/17/2024 [facility] DATE CREATED AUTHOR AUTHOR'S ORGANIZ ATION 03/27/2024 [facility] DATE CREATED AUTHOR AUTHOR'S ORGANIZ ATION 09/26/2024 [facility] dical Specialists EPIC Care Teams (unrecognized sec tion and content) Elephant Tamer Relationship Specialty Start Date End Date Shea Vogel MD [address] [place] [address] PCP - General Family Medicine 10/05/22 Saira Weston FISH PEDDLER [address] [place] [address] PCP - ACO Reach 10/08/22 Saira Weston NP [address] [place] [address] Nurse Practitioner Family Medicine 10/05/22 Elephant Tamer Relationship Specialty Start Date End Date Shea Vogel MD [address] [place] [address] PCP - General Family Medicine 10/05/22 Saira Weston, FISH PEDDLER [address] [place] [address] PCP - ACO Reach 10/08/22 Saira Weston, FISH PEDDLER [address] [place] [address] Nurse Practitioner Family Medicine 10/05/22 Elephant Tamer Relationship Specialty Start Date End Date Shea Vogel MD [address] [place] [address] PCP - General Family Medicine 10/05/22 Saira Weston, FISH PEDDLER [address] [place] [address] PCP - ACO Reach 10/08/22 Saira Weston NP [address] [place] [address] Nurse Practitioner Family Medicine 10/05/22 Elephant Tamer Relationship Specialty Start Date End Date Shea Vogel MD [address] [place] [address] PCP - General Family Medicine 10/05/22 Shea Vogel MD [address] [place] [address] PCP - ACO Reach 07/16/23 Saira Weston, FISH PEDDLER [address] [place] [address] Nurse Practitioner Family Medicine 10/05/22 Elephant Tamer Relationship Specialty Start Date End Date Shea Vogel MD [address] [place] [address] PCP - General Family Medicine 10/05/22 Shea Vogel MD [address] [place] [address] PCP - ACO Reach 07/16/23 Saira Weston NP [address] [place] [address] Nurse Practitioner Family Medicine 10/05/22 Elephant Tamer Relationship Specialty Start Date End Date Shea Vogel MD [address] [place] [address] PCP - General Family Medicine 10/05/22 Shea Vogel MD [address] [place] [address] PCP - ACO Reach 07/16/23 Saira Weston NP [address] [place] [address] Nurse Practitioner Family Medicine 10/05/22 Elephant Tamer Relationship Specialty Start Date End Date Shea Vogel MD [address] [place] [address] PCP - General Family Medicine 10/05/22 Shea Vogel MD [address] [place] [address] PCP - ACO Reach 07/16/23 Saira Weston NP [address] [place] [address] Nurse Practitioner Family Medicine 10/05/22 Elephant Tamer Relationship Specialty Start Date End Date Shea Vogel MD [address] [place] [address] PCP - General Family Medicine 10/05/22 Shea Vogel MD [address] [place] [address] PCP - ACO Reach 07/16/23 Saira Weston NP [address] [place] [address] Nurse Practitioner Family Medicine 10/05/22 Elephant Tamer Relationship Specialty Start Date End Date Shea Vogel MD [address] [place] [address] PCP - General Family Medicine 10/05/22 Shea Vogel MD [address] [place] [address] PCP - ACO Reach 07/16/23 Saira Weston NP [address] [place] [address] Nurse Practitioner Family Medicine 10/05/22 Elephant Tamer Relationship Specialty Start Date End Date Shea Vogel MD [address] [place] [address] PCP - General Family Medicine 10/05/22 Shea Vogel MD [address] [place] [address] PCP - ACO Reach 07/16/23 Saira Weston, FISH PEDDLER [address] [place] [address] Nurse Practitioner Family Medicine 10/05/22 Elephant Tamer Relationship Specialty Start Date End Date Shea Vogel MD [address] [place] [address] PCP - General Family Medicine 10/05/22 Shea Vogel MD [address] [place] [address] PCP - ACO Reach 07/16/23 Saira Weston NP [address] [place] [address] Nurse Practitioner Family Medicine 10/05/22 Elephant Tamer Relationship Specialty Start Date End Date Shea Vogel MD [address] [place] [address] PCP - General Family Medicine 10/05/22 Shea Vogel MD [address] [place] [address] PCP - ACO Reach 07/16/23 Saira Weston, FADY [address] [place] [address] Nurse Practitioner Family Medicine 10/05/22 Elephant Tamer Relationship Specialty Start Date End Date Shea Vogel MD [address] [place] [address] PCP - General Family Medicine 10/05/22 Shea Vogel MD [address] [place] [address] PCP - ACO Reach 07/16/23 Saira Weston NP [address] [place] [address] Nurse Practitioner Family Medicine 10/05/22 Elephant Tamer Relationship Specialty Start Date End Date Shea Vogel MD [address] [place] [address] PCP - General Family Medicine 10/05/22 Shea Vogel MD [address] [place] [address] PCP - ACO Reach 07/16/23 Saira Weston NP [address] [place] [address] Nurse Practitioner Family Medicine 10/05/22 Elephant Tamer Relationship Specialty Start Date End Date Shea Vogel MD [address] [place] [address] PCP - General Family Medicine 10/05/22 Shea Vogel MD [address] [place] [address] PCP - ACO Reach 07/16/23 Saira Weston FISH PEDDLER [address] [place] [address] Nurse Practitioner Family Medicine 10/05/22 Elephant Tamer Relationship Specialty Start Date End Date Shea Vogel MD [address] [place] [address] PCP - General Family Medicine 10/05/22 Shea Vogel MD [address] [place] [address] PCP - ACO Reach 07/16/23 Saira Weston, FISH PEDDLER [address] [place] [address] Nurse Practitioner Family Medicine 10/05/22 Elephant Tamer Relationship Specialty Start Date End Date Shea Vogel MD [address] [place] [address] PCP - General Family Medicine 10/05/22 Shea Vogel MD [address] [place] [address] PCP - ACO Reach 07/16/23 Saira Weston, FISH PEDDLER [address] [place] [address] Nurse Practitioner Family Medicine 10/05/22 Elephant Tamer Relationship Specialty Start Date End Date Shea Vogel MD [address] [place] [address] PCP - General Family Medicine 10/05/22 Shea Vogel MD [address] [place] [address] PCP - ACO Reach 07/16/23 Saira Weston, FISH PEDDLER [address] [place] [address] Nurse Practitioner Family Medicine 10/05/22 Elephant Tamer Relationship Specialty Start Date End Date Shea Vogel MD [address] [place] [address] PCP - General Family Medicine 10/05/22 Shea Vogel MD [address] [place] [address] PCP - ACO Reach 07/16/23 Saira Weston, FISH PEDDLER [address] [place] [address] Nurse Practitioner Family Medicine 10/05/22 Elephant Tamer Relationship Specialty Start Date End Date Shea Vogel MD [address] [place] [address] PCP - General Family Medicine 10/05/22 Shea Vogel MD [address] [place] [address] PCP - ACO Reach 07/16/23 Saira Weston, FADY [address] [facility] [place] [address] Nurse Practitioner Family Medicine 10/05/22 Elephant Tamer Relationship Specialty Start Date End Date Shea Vogel MD [address] [facility] [place] [address] PCP - General Family Medicine 10/05/22 Shea Vogel MD [address] [place] [address] PCP - ACO Reach 07/16/23 Saira Weston, FISH PEDDLER [address] [facility] [place] [address] Nurse Practitioner Family Medicine 10/05/22 Shashi Servin, MANAGER CHANNEL-MUSIC VIDEO PRODUCER [address] [facility] [address] [place] [address] Nurse Practitioner Psychiatry 06/01/24 Elephant Tamer Relationship Specialty Start Date End Date Shea Vogel MD [address] [facility] [place] [address] PCP - General Family Medicine 10/05/22 Shea Vogel MD [address] [facility] [place] [address] PCP - ACO Reach 07/16/23 Saira Weston, FISH PEDDLER [address] [facility] [place] [address] Nurse Practitioner Family Medicine 10/05/22 Shashi Servin, MANAGER CHANNEL-MUSIC VIDEO PRODUCER [address] [facility] [address] [place] [address] Nurse Practitioner Psychiatry 06/01/24 Elephant Tamer Relationship Specialty Start Date End Date Shea Vogel MD [address] [facility] [place] [address] PCP - General Family Medicine 10/05/22 Shea Vogel MD [address] [facility] [place] [address] PCP - ACO Reach 07/16/23 Saira Weston, FISH PEDDLER [address] [facility] [place] [address] Nurse Practitioner Family Medicine 10/05/22 Shashi Servin MANAGER CHANNEL-MUSIC VIDEO PRODUCER [address] [facility] [address] [place] [address] Nurse Practitioner Psychiatry 06/01/24 Foreign Gonzales LPC Bacteriology Teacher Behavioral Health 07/07/24 Elephant Tamer Relationship Specialty Start Date End Date Shea Vogel MD [address] [facility] [place] [address] PCP - General Family Medicine 10/05/22 Shea Vogel MD [address] [facility] [place] [address] PCP - ACO Reach 07/16/23 Saira Weston NP [address] [facility] [place] [address] Nurse Practitioner Family Medicine 10/05/22 Shashi Servin MANAGER CHANNEL-MUSIC VIDEO PRODUCER [address] [address] Nurse Practitioner Psychiatry 06/01/24 Foreign Gonzales LPC Bacteriology Teacher Behavioral Health 07/07/24 Elephant Tamer Relationship Specialty Start Date End Date Shea Vogel MD [address] [facility] [place] [address] PCP - General Family Medicine 10/05/22 Shea Vogel MD [address] [place] [address] PCP - ACO Reach 07/16/23 Saira Weston NP [address] [facility] [place] [address] Nurse Practitioner Family Medicine 10/05/22 Shashi Servin APRN-MUSIC VIDEO PRODUCER [address] [place] [address] Nurse Practitioner Psychiatry 06/01/24 Foreign Gonzales LPC Bacteriology Teacher Behavioral Health 07/07/24 Elephant Tamer Relationship Specialty Start Date End Date Shea Vogel MD [address] [facility] [place] [address] PCP - General Family Medicine 10/05/22 Shea Vogel MD [address] [facility] [place] [address] PCP - ACO Reach 07/16/23 Saira Weston NP [address] [facility] [place] [address] Nurse Practitioner Family Medicine 10/05/22 Shashi Servin, MANAGER CHANNEL-MUSIC VIDEO PRODUCER [address] [facility] [address] [place] [address] Nurse Practitioner Psychiatry 06/01/24 Foreign Gonzales LPC Bacteriology Teacher Behavioral Health 07/07/24 Elephant Tamer Relationship Specialty Start Date End Date Shea Vogel MD [address] [facility] [place] [address] PCP - General Family Medicine 10/05/22 Shea Vogel MD [address] [facility] [place] [address] PCP - ACO Reach 07/16/23 Saira Weston NP [address] [facility] [place] [address] Nurse Practitioner Family Medicine 10/05/22 Shashi Servin APRN-MUSIC VIDEO PRODUCER [address] [place] [address] [address] Nurse Practitioner Psychiatry 06/01/24 Foreign Gonzales LPC Bacteriology Teacher Behavioral Health 07/07/24 Elephant Tamer Relationship Specialty Start Date End Date Shea Vogel MD [address] [facility] [place] [address] PCP - General Family Medicine 10/05/22 Shea Vogel MD [address] [facility] [place] [address] PCP - ACO Reach 07/16/23 Saira Weston, FADY [address] [facility] [place] [address] Nurse Practitioner Family Medicine 10/05/22 Shashi Servin MANAGER CHANNEL-MUSIC VIDEO PRODUCER [address] [address] Nurse Practitioner Psychiatry 06/01/24 Foreign Gonzales LPC Bacteriology Teacher Behavioral Health 07/07/24 Elephant Tamer Relationship Specialty Start Date End Date Shea Vogel MD [address] [facility] [place] [address] PCP - General Family Medicine 10/05/22 Shea Vogel MD [address] [facility] [place] [address] PCP - ACO Reach 07/16/23 Saira Weston, FADY [address] [facility] [place] [address] Nurse Practitioner Family Medicine 10/05/22 Shashi Servin APRN-MUSIC VIDEO PRODUCER [address] [place] [address] Nurse Practitioner Psychiatry 06/01/24 Foreign Gonzales LPC Bacteriology Teacher Behavioral Health 07/07/24 Sue Rosas NP [address] [phone] Nurse Practitioner Neurology 08/08/24 Master Alexander DO [address] [address] Referring Physician Neurology 08/08/24 Elephant Tamer Relationship Specialty Start Date End Date Shea Vogel MD [address] [place] [address] PCP - General Family Medicine 10/05/22 Shea Vogel MD [address] [place] [address] PCP - ACO Reach 07/16/23 Saira Weston FISH PEDDLER [address] [place] [address] Nurse Practitioner Family Medicine 10/05/22 Shashi Servin APRN-MUSIC VIDEO PRODUCER [address] [place] [address] Nurse Practitioner Psychiatry 06/01/24 Foreign Gonzales LPC Bacteriology Teacher Behavioral Health 07/07/24 Sue Rosas, FADY [address] [phone] Nurse Practitioner Neurology 08/08/24 Master Alexander DO [address] [address] Referring Physician Neurology 08/08/24 Elephant Tamer Relationship Specialty Start Date End Date Shea Vogel MD [address] [place] [address] PCP - General Family Medicine 10/05/22 Shea Vogel MD [address] [place] [address] PCP - ACO Reach 07/16/23 Saira Weston, FISH PEDDLER [address] [place] [address] Nurse Practitioner Family Medicine 10/05/22 Shashi Servin, MANAGER CHANNEL-MUSIC VIDEO PRODUCER [address] [facility] [address] [place] [address] Nurse Practitioner Psychiatry 06/01/24 Foreign Gonzales LPC Bacteriology Teacher Behavioral Health 07/07/24 Sue Rosas NP [address] [phone] Nurse Practitioner Neurology 08/08/24 Master Alexander DO [address] [place] [id number] Referring Physician Neurology 08/08/24 Elephant Tamer Relationship Specialty Start Date End Date Shea Vogel MD [address] [place] [address] PCP - General Family Medicine 10/05/22 Shea Vogel MD [address] [place] [address] PCP - ACO Reach 07/16/23 Saira Weston, FISH PEDDLER [address] [place] [address] Nurse Practitioner Family Medicine 10/05/22 Shashi Servin MANAGER CHANNEL-MUSIC VIDEO PRODUCER 112 [facility] [address] [place] [address] Nurse Practitioner Psychiatry 06/01/24 Foreign Gonzales LPC Bacteriology Teacher Behavioral Health 07/07/24 Sue Rosas, FADY [address] [phone] Nurse Practitioner Neurology 08/08/24 Master Alexander DO [address] [phone] Referring Physician Neurology 08/08/24 Elephant Tamer Relationship Specialty Start Date End Date Shea Vogel MD [address] [place] [address] PCP - General Family Medicine 10/05/22 Shea Vogel MD [address] [place] [address] PCP - ACO Reach 07/16/23 Saira Weston NP [address] [place] [address] Nurse Practitioner Family Medicine 10/05/22 Shashi Servin APRN-MUSIC VIDEO PRODUCER [address] [address] Nurse Practitioner Psychiatry 06/01/24 Foreign Gonzales LPC Bacteriology Teacher Behavioral Health 07/07/24 Sue Rosas, FADY [address] [phone] Nurse Practitioner Neurology 08/08/24 Master Alexander DO [address] [phone] Referring Physician Neurology 08/08/24 Elephant Tamer Relationship Specialty Start Date End Date Shea Vogel MD [address] [place] [address] PCP - General Family Medicine 10/05/22 Shea Vogel MD [address] [facility] [place] [address] PCP - ACO Reach 07/16/23 Saira Weston, FISH PEDDLER [address] [place] [address] Nurse Practitioner Family Medicine 10/05/22 Shashi Servin MANAGER CHANNEL-MUSIC VIDEO PRODUCER [address] [place] [address] Nurse Practitioner Psychiatry 06/01/24 Foreign Gonzales LPC Bacteriology Teacher Behavioral Health 07/07/24 Sue Rosas, FADY [address] [place], [place] [phone] Nurse Practitioner Neurology 08/08/24 Master Alexander DO [address] [place] [address] Referring Physician Neurology 08/08/24 Elephant Tamer Relationship Specialty Start Date End Date Shea Vogel MD [address] [place] [address] PCP - General Family Medicine 10/05/22 Shea Vogel MD [address] [facility] [place] [address] PCP - ACO Reach 07/16/23 Saira Weston, FISH PEDDLER [address] [place] [address] Nurse Practitioner Family Medicine 10/05/22 Shashi Servin MANAGER CHANNEL-MUSIC VIDEO PRODUCER [address] [place] [address] Nurse Practitioner Psychiatry 06/01/24 Foreign Gonzales LPC Bacteriology Teacher Behavioral Health 07/07/24 Sue Rosas, FADY [address] [phone] Nurse Practitioner Neurology 08/08/24 Master Alexander DO [address] [address] Referring Physician Neurology 08/08/24 Elephant Tamer Relationship Specialty Start Date End Date Shea Vogel MD [address] [place] [address] PCP - General Family Medicine 10/05/22 Shea Vogel MD [address] [place] [address] PCP - ACO Reach 07/16/23 Saira Weston NP [address] [place] [address] Nurse Practitioner Family Medicine 10/05/22 Shashi Servin MANAGER CHANNEL-MUSIC VIDEO PRODUCER [address] [place] [address] Nurse Practitioner Psychiatry 06/01/24 Foreign Gonzales LPC Bacteriology Teacher Behavioral Health 07/07/24 Sue Rosas, FADY [address] [phone] Nurse Practitioner Neurology 08/08/24 Master Alexander DO [address] [phone] Referring Physician Neurology 08/08/24 Elephant Tamer Relationship Specialty Start Date End Date Shea Vogel MD [address] [place] [address] PCP - General Family Medicine 10/05/22 Shea Vogel MD [address] [place] [address] PCP - ACO Reach 07/16/23 Saira Weston NP [address] [place] [address] Nurse Practitioner Family Medicine 10/05/22 Shashi Servin, MANAGER CHANNEL-MUSIC VIDEO PRODUCER [address] [place] [address] Nurse Practitioner Psychiatry 06/01/24 Foreign Gonzales LPC Bacteriology Teacher Behavioral Health 07/07/24 Sue Rosas NP [address] [phone] Nurse Practitioner Neurology 08/08/24 Master Alexander DO [address] [phone] Referring Physician Neurology 08/08/24 Elephant Tamer Relationship Specialty Start Date End Date Shea Vogel MD [address] [place] [address] PCP - General Family Medicine 10/05/22 Shea Vogel MD [address] [facility] [place] [address] PCP - ACO Reach 07/16/23 Saira Weston NP [address] [place] [address] Nurse Practitioner Family Medicine 10/05/22 Shashi Servin APRN-MUSIC VIDEO PRODUCER [address] [place] [address] [address] [place] [address] Nurse Practitioner Psychiatry 06/01/24 Foreign Gonzales LPC Bacteriology Teacher Behavioral Health 07/07/24 Sue Rosas NP [address] [place] [phone] Nurse Practitioner Neurology 08/08/24 Master Alexander DO [address] [place] [address] [phone] Referring Physician Neurology 08/08/24 Reason for Visit [...] 01/21/24 for Nausea and Vomiting at [facility]. Reason Comments Follow-up Patient presents tod ay for 3 month follow up. Reason Onset Date Comments Other 05/28/2024 felt puller Reason Comments Anxiety Depression Panic Attack Specialty Diagnoses / Procedures Referred By Contact Referred To Contact Behavioral Health Diagnoses Counseling Procedures Counseling Shashi Servin APRN-MUSIC VIDEO PRODUCER [address] [facility] [address] [place] [address] Phone: tel: fax: [facility] [address] [place] [address] [place] [address] Phone: tel: fax: Referral ID Status Reason Start Date Expiration Date Visits Re quested Visits Authorized [id number] Closed 05/18/2024 11/14/2024 1 1 Reason Comments [...] BE BASED ON THE PRIMARY CLINICAL RECORDS. [employer] provides no warranty or guarantee of the accuracy or completeness of information in this document.
[2024-09-27 20:09] VITALS: BP 113/65; PULSE 90; TEMP 37.3; O2SAT 96
[2024-09-27 20:53] VITALS: BP 119/74; PULSE 113; TEMP 36.7; O2SAT 95; BMI 16.4
[2024-09-27 21:14] VITALS: O2SAT 96
[2024-09-27] MEDS: 0.9 % SODIUM CHLORIDE 1,000 ML 100 ML IV (22:26)
[2024-09-27] MEDS: TEMAZEPAM 15 MG CAPSULE PO (22:27)
[2024-09-28] VITALS: BP 106/69; BP 119/74; PULSE 113; TEMP 36.7; O2SAT 96
[2024-09-28 05:07] LABS: Basophils Percent Auto 0.2 % (0.2-2.0); Eosinophils Percent Auto 0.3 % (0.9-7.0); Hematocrit 26.3 % (36.0-48.0); Immature Granulocytes Abs Auto 0.01 10^3/uL (0.00-0.03); Immature Granulocytes Pct Auto 0.2 % (0.0-0.5); Lymphocytes Absolute Auto 0.4 10^3/uL (1.2-3.8); Lymphocytes Percent Auto 6.7 % (20.5-60.0); Mean Corpuscular HGB Conc 34.2 g/dL (29.9-35.2); Mean Corpuscular Hemoglobin 28.8 pg (26.7-34.0); Mean Corpuscular Volume 84.3 fL (81.0-99.0); Mean Platelet Volume 9.1 fL (9.5-13.5); Monocytes Absolute Auto 0.4 10^3/uL (0.3-0.8); Monocytes Percent Auto 5.9 % (1.7-12.0); Neutrophils Absolute Auto 5.4 10^3/uL (1.4-6.5); Neutrophils Percent Auto 86.7 % (43.0-75.0); Platelet Count 272 10^3/uL (150-450); Red Blood Count 3.12 10^6/uL (4.20-5.40); White Blood Count 6.3 10^3/uL (4.0-11.0)
[2024-09-28 05:28] LABS: Alanine Aminotransferase 9 U/L (14-59); Albumin Globulin Ratio 0.8; Albumin Level 2.5 g/dL (3.4-5.0); Alkaline Phosphatase 153 U/L (46-116); Aspartate Amino Transferase 16 U/L (15-37); BUN Creatinine Ratio 32.9; Bilirubin Total 0.4 mg/dL (0.2-1.0); Calcium 8.2 mg/dL (8.5-10.1); Carbon Dioxide 24.1 mmol/L (21.0-32.0); Estimated GFR (African America >60 (>=60 mL/min/1.73m^2); Estimated GFR (Non-African Ame >60 (>=60 mL/min/1.73m^2); Glucose 85 mg/dL (74-106); Magnesium 1.6 mg/dL (1.8-2.4); Total Protein 5.5 g/dL (6.4-8.2)
[2024-09-28 05:42] LABS: Anion Gap 12.7; Chloride 107 mmol/L (98-107); Sodium 141 mmol/L (136-145)
[2024-09-28 05:47] VITALS: O2SAT 95
[2024-09-28 05:55] VITALS: BP 130/72; PULSE 106; TEMP 36.8; O2SAT 93
[2024-09-28 06:21] LABS: Potassium 2.8 mmol/L (3.5-5.1)
[2024-09-28] MEDS: 0.9 % SODIUM CHLORIDE 1,000 ML 100 ML IV (07:54)
[2024-09-28 07:55] VITALS: BP 138/78; PULSE 93; TEMP 36.9; O2SAT 94
--- NOTE | 2024-09-28 08:53 | PM.HP ---
HPI H&P: HPI History of Present Illness Chief complaint: uti Narrative: Patient is a 68 y.o female with past medical history of major depression, anxiety, Chronic diarrhea, peripheral neuropathy, severe protein calorie malnutrition, osteoporosis, glaucoma, GERD, parkinson's disease who presented to the ER last night because she quit eating and a change in mental status along with suspicion for UTI. This morning patient is resting comfortably in bed. She denies any new complaints. She signed on with Hospice last night and plans to return to [facility] today. ER findings: WBC's 6.3, hb 9.0, K 2.6, Mag 1.6, Cr 0.73, lactate 1.2 and UA positive for infection. Patient's potassium was replaced and she was started on Rocephin for UTI. Hospice was consulted in the ER and patient was made a DNR CC. She was admitted for her acute UTI, hypokalemia, and hypomagnesmia. Opioid HPI Opioid Management Most Recent Pain and Opioid Data: Last Pain Scale 10 05/28/24, 13:10 Last Pain Assessment 09/27/24, 21:00 Last ORT Total Score 1 09/27/24, 20:53 Last ORT Risk Category Low Risk 09/27/24, 20:53 Review of Systems ROS Narrative ROS: a complete review of systems were reviewed with patient and are positive as below or listed in History of Chief Complaint. General: no fever, chills, night sweats Head: no headache, trauma, visual changes, nausea or vomiting Skin: no reported rashes, itching or sores Eyes: no blurriness of vision Ears: no reported hearing loss, vertigo, earache, or tinnitus Throat: no sore throat, hoarseness, swelling of neck, or tongue pain Heart: no chest pain Lungs: no shortness of breath or cough GI: no diarrhea or vomiting/nausea Urinary: no urinary urgency, frequency or pain Neuro: no numbness or tingling HEM: no bleeding issues or bruising ENDO: no thyroid problems Psych: no anxiety or depression [facility] Medical History (Updated 09/28/24 @ 11:17 by Bernadette Dhaliwal DO) MDD (major depressive disorder) ?F32.9 - Major depressive disorder, single episode, unspecified (ICD-10) Anxiety ?F41.9 - Anxiety disorder, unspecified (ICD-10) Peripheral neuropathy ?G62.9 - Polyneuropathy, unspecified (ICD-10) Acute hypokalemia ?E87.6 - Hypokalemia (ICD-10) Fall ?W19.XXXA - Unspecified fall, initial encounter (ICD-10) Closed sacral fracture ?S32.10XA - Unspecified fracture of sacrum, initial encounter for closed fracture (ICD-10) Protein calorie malnutrition ?E46 - Unspecified protein-calorie malnutrition (ICD-10) Weakness ?R53.1 - Weakness (ICD-10) Osteoporosis ?M81.0 - Age-related osteoporosis without current pathological fracture (ICD-10) Glaucoma ?H40.9 - Unspecified glaucoma (ICD-10) Depression with anxiety ?F41.8 - Other specified anxiety disorders (ICD-10) GERD (gastroesophageal reflux disease) ?K21.9 - Gastro-esophageal reflux disease without esophagitis (ICD-10) Difficulty in walking ?R26.2 - Difficulty in walking, not elsewhere classified (ICD-10) Parkinson disease ?G20.A1 - Parkinson's disease without dyskinesia, without mention of fluctuations (ICD-10) Abdominal pain ?R10.9 - Unspecified abdominal pain (ICD-10) Surgical History H/O: hysterectomy ?Z90.710 - Acquired absence of both cervix and uterus (ICD-10) Family History Brother Family history of cancer Grandmother Family history of hypertension Family history of stroke Social History Within the past year, how often did you have a drink containing alcohol: never Score interpretation: A score less than 3 is consistent with normal alcohol consumption. Smoking status: Never smoker Non-prescribed substance use: denies use Previous occupational history: retired Known occupational exposures/hazards: No Highest level of school completed/degree received: don't know Are you now , , , , never or living with a partner: In a typical week, how many times do you talk on the telephone with family, friends, or neighbors: twice per week How often do you get together with friends or relatives: never How often do you attend mormonism or druze services: never Do you belong to any clubs or organizations such as mormonism groups unions, fraternal or athletic groups, or school groups: yes Total score: 2 Score interpretation: A score of greater than or equal to 2 indicates the lowest level of social isolation. Little interest or pleasure in doing things: not at all Feeling down, depressed, or hopeless: not at all Feel stressed/tense/nervous/anxious/difficulty sleeping: not at all Life stressors: other Life stressor details: prefer not to say Do you think of yourself as: straight/heterosexual Gender Identity: female Meds Home Medications and Allergies Home Medications ?Medication ?Instructions ?Recorded ?Confirmed ?Type brimonidine 0.2 % eye drops 1 drp ophthalmic (eye) TID 01/27/23 09/27/24 History melatonin 5 mg tablet 5 mg PO BEDTIME sleep 01/27/23 09/27/24 History omeprazole 40 mg capsule,delayed 40 mg PO QAM 01/27/23 09/27/24 History release timolol maleate 0.5 % eye drops 1 drp ophthalmic (eye) QAM 01/27/23 09/27/24 History loperamide 2 mg capsule 2 mg PO Q6H PRN loose stool 01/28/23 09/27/24 History (Anti-Diarrheal (loperamide)) baclofen 10 mg tablet 10 mg PO DAILY PRN muscle spasm 09/07/23 09/27/24 History psyllium husk 3.4 gram/5.4 gram 1 tbsp PO QPM 09/07/23 09/27/24 History oral powder (Metamucil) baclofen 20 mg tablet 20 mg PO BEDTIME 05/28/24 09/27/24 History cholecalciferol (vitamin D3) 25 1,000 unit PO DAILY 05/28/24 09/27/24 History mcg (1,000 unit) capsule (Vitamin D3) hydroxyzine HCl 25 mg tablet 25 mg PO Q6H PRN anxiety 05/28/24 09/27/24 History lorazepam 0.5 mg tablet 0.25 mg PO Q12H PRN anxiety 05/28/24 09/27/24 History megestrol 40 mg tablet 80 mg PO DAILY 05/28/24 09/27/24 History mirtazapine 30 mg tablet 30 mg PO BEDTIME 05/28/24 09/27/24 History ondansetron HCl 4 mg tablet 4 mg PO Q8H PRN nausea and vomiting 05/28/24 09/27/24 History potassium chloride 20 mEq/15 mL 20 meq PO BID 05/28/24 09/27/24 History oral liquid rivastigmine tartrate 3 mg capsule 3 mg PO BID 05/28/24 09/27/24 History acetaminophen 325 mg capsule 650 mg PO Q6H PRN pain 09/21/24 09/27/24 History calcium carbonate (Tums) 650 mg PO TID PRN indigestion 09/21/24 09/28/24 History carbidopa 25 mg-levodopa 100 mg 2 tab PO TID@0600,1000,1400 09/21/24 09/28/24 History tablet carbidopa 25 mg-levodopa 100 mg 1 tab PO DAILY@1800 09/21/24 09/28/24 History tablet (Sinemet) entacapone 200 mg tablet 200 mg PO QAM 09/21/24 09/27/24 History ibandronate 150 mg tablet 150 mg PO .[id number] 09/21/24 09/27/24 History cephalexin 500 mg capsule 500 mg PO TID 7 days #21 caps 09/27/24 Rx carbidopa ER 25 mg-levodopa 100 mg 1 tab PO QID@06,10,14,18 09/28/24 09/28/24 History tablet,extended release sertraline 100 mg tablet 150 mg PO DAILY 09/28/24 09/28/24 History Allergies Allergy/AdvReac Type Severity Reaction Status Date / Time bupropion (From Wellbutrin) Allergy Unknown Verified 09/27/24 14:01 Exam Narrative Exam Narrative: General: Patient is alert, and oriented to person, place normal affect, severe cachexia Skin: no visible rashes, or ulcers Head: atraumatic, acephalic Eyes: PERRLA, no nystagmus present, conjunctiva clear, no scleral icterus Ears: normal gross auditory acuity Heart: Normal rate and rhythm, no murmurs/rubs/gallops Lungs: no audible wheezes, crackles and normal breath sounds all lung georges Abdomen: Normal audible bowel sounds, no distension, No palpable masses, no organomegaly, no rebound/guarding/ or rigidity Musculoskeletal: no swelling bilateral lower extremities Neuro: CN II-X grossly intact Constitutional Vital Signs, click to edit/add: Last Vital Signs Temp 98.4 F 09/28/24 07:55 Pulse 93 H 09/28/24 07:55 Resp 16 09/28/24 07:55 BP 138/78 09/28/24 07:55 Pulse Ox 94 L 09/28/24 07:55 O2 Del Method Room Air 09/28/24 07:55 Results Labs Labs: Short CBC 09/27/24 09/28/24 Range/Units 14:05 04:57 WBC 10.9 6.3 (4.0-11.0) 10^3/uL Hgb 9.4 L 9.0 L (12.0-16.0) g/dL Hct 28.2 L 26.3 L (36.0-48.0) % Plt Count 279 272 (150-450) 10^3/uL BMP 09/27/24 09/28/24 14:05 04:57 Sodium 142 141 Potassium 2.6 L* 2.8 L* Chloride 106 107 Carbon Dioxide 23.8 24.1 BUN 30.0 H 24.0 H Creatinine 0.99 0.73 Glucose 98 85 Calcium 8.3 L 8.2 L Liver Function 09/28/24 Range/Units 04:57 Total Bilirubin 0.4 (0.2-1.0) mg/dL AST 16 (15-37) U/L ALT 9 L (14-59) U/L Alkaline Phosphatase 153 H (46-116) U/L Albumin 2.5 L (3.4-5.0) g/dL Urine 09/27/24 Range/Units 14:10 Urine Color Dk. orange (YELLOW) Urine Clarity Cloudy A (CLEAR) Urine pH 6.0 (5.0-9.0) Ur Specific [place] 1.025 (1.005-1.025) Urine Protein >=300 A (NEG/TRACE) mg/dL Urine Glucose (UA) Negative (NEGATIVE) mg/dL Assessment and Plan Assessment and Plan (1) Urinary tract infection: Assessment and Plan: Normal BUN, Cr; Urine culture pending; continue treatment with Rocephin, agree with discharging her on Keflex Qualifiers: Hematuria presence: without hematuria Urinary tract infection type: acute cystitis Qualified Code(s): N30.00 - Acute cystitis without hematuria (2) Acute alteration in mental status: Assessment and Plan: Most likely secondary to advancing parkinson's, electrolyte abnormalities and UTI, she is back to baseline this morning (3) Hypokalemia due to inadequate potassium intake: Assessment and Plan: replace IV and PO, recheck 1500 (4) Hypomagnesemia: Assessment and Plan: replace IV (5) MDD (major depressive disorder): Assessment and Plan: continue home medications Qualifiers: Active/Remission status: remission status unspecified Major depression recurrence: unspecified whether recurrent Qualified Code(s): F32.9 - Major depressive disorder, single episode, unspecified (6) Anxiety: (7) Peripheral neuropathy: Qualifiers: Peripheral neuropathy type: polyneuropathy, unspecified Qualified Code(s): G62.9 - Polyneuropathy, unspecified (8) Protein calorie malnutrition: Qualifiers: Protein-calorie malnutrition severity: severe Qualified Code(s): E43 - Unspecified severe protein-calorie malnutrition (9) Osteoporosis: Qualifiers: Osteoporosis type: unspecified Presence of current pathological fracture: unspecified Qualified Code(s): M81.0 - Age-related osteoporosis without current pathological fracture (10) Glaucoma: Qualifiers: Glaucoma type: unspecified Laterality: bilateral Qualified Code(s): H40.9 - Unspecified glaucoma (11) GERD (gastroesophageal reflux disease): Qualifiers: Esophagitis presence: esophagitis presence not specified Qualified Code(s): K21.9 - Gastro-esophageal reflux disease without esophagitis (12) Parkinson disease: Qualifiers: Dyskinesia presence: with dyskinesia Fluctuating manifestations: with fluctuating manifestations Qualified Code(s): G20.B2 - Parkinson's disease with dyskinesia, with fluctuations Plan Patient is a [facility] Patient is observation status, Plan for Hospice services at discharge today, recheck electrolytes at 1300, Place on Keflex PO x 7 days, She is currently taking oral potassium replacement and magnesium. Home today at [facility] with [facility].
--- NOTE | 2024-09-28 09:24 | SWNOTE1 ---
SW could see that [facility] did come see pt in ED. SW did message Ruth from [facility] to confirm plan is for pt to sign on to Hospice once returning to [place], waiting to hear back.
[2024-09-28] MEDS: CARBIDOPA/LEVODOPA 25 MG-100 MG TABLET 2 TAB PO ×2 (09:28→14:53)
[2024-09-28] MEDS: MAGNESIUM SULFATE IN WATER 2 GM/50 ML PREMIX IV (09:28)
[2024-09-28] MEDS: CHOLECALCIFEROL (VITAMIN D3) 25 MCG/1,000 UNITS TABLET PO (09:28)
--- NOTE | 2024-09-28 09:28 | SWNOTE1 ---
SW faxed updates to [place]. Updates included Hospice order, face sheet, ED note, labs, vitals, and nursing notes.
[2024-09-28] MEDS: CARBIDOPA/LEVODOPA CR 25-100 MG TABLET 1 TAB PO ×2 (09:29→14:53)
[2024-09-28] MEDS: BISACODYL 5 MG TABLET PO (09:29)
--- NOTE | 2024-09-28 10:03 | SWNOTE1 ---
SOILA received a message from Ruth at [facility] and she is going to meet with pt's brother and have him sign the paperwork. Pt's brother is HCPOA (documentation in chart and was provided to [facility] yesterday evening). SOILA to keep Ruth posted on discharge.
[2024-09-28] MEDS: POTASSIUM CHLORIDE 40 MEQ in 0.9 % SODIUM CHLORIDE 250 ML 67.5 MEQ IV (10:32)
--- NOTE | 2024-09-28 11:14 | SWNOTE1 ---
Pt will likely be discharged later today after she gets Potassium. SW to check with nurse on a good time for transport and how she should be transported back. SOILA let Ruth from [facility] know.
[2024-09-28] MEDS: PANTOPRAZOLE SODIUM 40 MG TABLET.DR PO (11:15)
[2024-09-28] MEDS: HYOSCYAMINE SULFATE 0.125 MG TAB.SUBL 0.25 MG PO (11:15)
[2024-09-28] MEDS: TIMOLOL MALEATE 0.5% OP SOL 100 DROPS/5 ML BOTTLE 1 DROP OP (11:15)
--- NOTE | 2024-09-28 11:19 | CM.NOTE ---
Rounds made with Dr. Dhaliwal. Plan to return to [facility] with [facility] today.
--- NOTE | 2024-09-28 11:24 | P.DS_ITS ---
DS: Providers Provider Date of admission: 09/27/24 19:53 Primary care physician: ELLY SUNSHINE Attending physician on admission: Bernadette Dhaliwal Consults: 09/27/24 15:33 Consult to Hospice Routine Reason for consultation: Family request 09/27/24 21:11 Consult to Case Management Routine Reason for consultation: hospice patient Has provider been notified: No Discharging clinician: Bernadette Dhaliwal DS: Diagnosis Discharge Diagnosis (1) Urinary tract infection: Qualifiers: Hematuria presence: without hematuria Urinary tract infection type: acute cystitis Qualified Code(s): N30.00 - Acute cystitis without hematuria (2) Acute alteration in mental status: (3) Hypokalemia due to inadequate potassium intake: (4) Hypomagnesemia: (5) MDD (major depressive disorder): Qualifiers: Major depression recurrence: unspecified whether recurrent Activ e/Remission status: remission status unspecified Qualified Code(s): F32.9 - Major depressive disorder, single episode, unspecified (6) Anxiety: (7) Peripheral neuropathy: Qualifiers: Peripheral neuropathy type: polyneuropathy, unspecified Qualified Code(s): G62.9 - Polyneuropathy, unspecified (8) Protein calorie malnutrition: Qualifiers: Protein-calorie malnutrition severity: severe Qualified Code(s): E43 - Unspecified severe protein-calorie malnutrition (9) Osteoporosis: Qualifiers: Osteoporosis type: unspecified Presence of current pathological fracture: unspecified Qualified Code(s): M81.0 - Age-related osteoporosis without current pathological fracture (10) Glaucoma: Qualifiers: Glaucoma type: unspecified Laterality: bilateral Qualified Code(s): H40.9 - Unspecified glaucoma (11) GERD (gastroesophageal reflux disease): Qualifiers: Esophagitis presence: esophagitis presence not specified Qualified Code(s): K21.9 - Gastro-esophageal reflux disease without esophagitis (12) Parkinson disease: Qualifiers: Dyskinesia presence: with dyskinesia Fluctuating manifestations: with fluctuating manifestations Qualified Code(s): G20.B2 - Parkinson's disease with dyskinesia, with fluctuations DS: Summary Hospital Course Hospital Course: Patient will be treated with Keflex for UTI, urine cultures pending at the time of discharge. Magnesium and potassium replaced IV. She will resume home medications. She will return to [facility] today with [facility]. Status at Discharge Functional status at discharge: bed bound Overall status at discharge: patient is back to baseline Time Spent with Patient Time attestation: Total time spent providing and/or coordinating discharge services: Time spent: greater than 30 minutes Exam Narrative Exam Narrative: no changes at the time of discharge from admitting exam dated 09/28/24 Constitutional Vital Signs, click to edit/add: Last Vital Signs Temp 98.4 F 09/28/24 07:55 Pulse 93 H 09/28/24 07:55 Resp 16 09/28/24 07:55 BP 138/78 09/28/24 07:55 Pulse Ox 94 L 09/28/24 07:55 O2 Del Method Room Air 09/28/24 07:55 DS: Data Data Completed and Pending Labs on day of discharge: Labs from last 24 hours 09/28/24 09/27/24 09/27/24 04:57 17:30 15:38 WBC 6.3 RBC 3.12 L Hgb 9.0 L Hct 26.3 L MCV 84.3 MCH 28.8 MCHC 34.2 RDW 13.0 Plt Count 272 MPV 9.1 L Neut % (Auto) 86.7 H Lymph % (Auto) 6.7 L Millard % (Auto) 5.9 Eos % (Auto) 0.3 L Baso % (Auto) 0.2 Neut # (Auto) 5.4 Lymph # (Auto) 0.4 L Millard # (Auto) 0.4 Eos # (Auto) 0.0 Baso # (Auto) 0.0 Abs Immat Gran (auto) 0.01 Imm/Tot Granulo (auto) 0.2 Sodium 141 Potassium 2.8 L* Chloride 107 Carbon Dioxide 24.1 Anion Gap 12.7 BUN 24.0 H Creatinine 0.73 Est GFR ( Amer) >60 Est GFR (Non-Af Amer) >60 BUN/Creatinine Ratio 32.9 Glucose 85 Lactate 1.2 Calcium 8.2 L Magnesium 1.6 L Total Bilirubin 0.4 AST 16 ALT 9 L Alkaline Phosphatase 153 H Total Protein 5.5 L Albumin 2.5 L Globulin 3.0 Albumin/Globulin Ratio 0.8 Urine Color Urine Clarity Urine pH Ur Specific Beaver Urine Protein Urine Glucose (UA) Urine Ketones Urine Occult Blood Urine Nitrite Urine Bilirubin Urine Urobilinogen Ur Leukocyte Esterase Urine RBC Urine WBC Ur Squamous Epith Cells Urine Crystals Urine Bacteria Urine Casts Urine Mucus Ur Culture Indicated? C. difficile Toxin PCR Negative 09/27/24 09/27/24 14:10 14:05 WBC 10.9 RBC 3.29 L Hgb 9.4 L Hct 28.2 L MCV 85.7 MCH 28.6 MCHC 33.3 RDW 13.0 Plt Count 279 MPV 9.3 L Neut % (Auto) 91.7 H Lymph % (Auto) 2.8 L Millard % (Auto) 5.1 Eos % (Auto) 0.0 L Baso % (Auto) 0.1 L Neut # (Auto) 10.0 H Lymph # (Auto) 0.3 L Millard # (Auto) 0.6 Eos # (Auto) 0.0 Baso # (Auto) 0.0 Abs Immat Gran (auto) 0.03 Imm/Tot Granulo (auto) 0.3 Sodium 142 Potassium 2.6 L* Chloride 106 Carbon Dioxide 23.8 Anion Gap 14.8 BUN 30.0 H Creatinine 0.99 Est GFR ( Amer) >60 Est GFR (Non-Af Amer) 56 L BUN/Creatinine Ratio 30.3 Glucose 98 Lactate Calcium 8.3 L Magnesium Total Bilirubin AST ALT Alkaline Phosphatase Total Protein Albumin Globulin Albumin/Globulin Ratio Urine Color Dk. orange Urine Clarity Cloudy A Urine pH 6.0 Ur Specific Beaver 1.025 Urine Protein >=300 A Urine Glucose (UA) Negative Urine Ketones 15 A Urine Occult Blood Large A Urine Nitrite Negative Urine Bilirubin Small A Urine Urobilinogen 1.0 Ur Leukocyte Esterase Moderate A Urine RBC 20-50 A Urine WBC 20-50 A Ur Squamous Epith Cells Rare Urine Crystals None seen Urine Bacteria Moderate A Urine Casts None seen Urine Mucus Trace A Ur Culture Indicated? [place] [place] Toxin PCR Preliminary micro results at discharge 09/27/24 14:10 Urine Culture - Preliminary Urine Catheterized Pending - Specimen sent to [facility] Discharge Plan Discharge Disposition: Hospice - Home Condition: Good Discharge Medications: New cephalexin 500 mg capsule 500 mg PO TID 7 Days Qty: 21 0RF Continued baclofen 10 mg tablet 10 mg PO DAILY PRN (Reason: muscle spasm) Patient Comments: 0600,1400,2200 Metamucil 3.4 gram/5.4 gram powder 1 tbsp PO QPM Rx Instructions: mix into at least 8 oz of water or juice before administering megestrol 40 mg tablet 80 mg PO DAILY mirtazapine 30 mg tablet 30 mg PO BEDTIME potassium chloride 20 mEq/15 mL liquid 20 meq PO BID rivastigmine tartrate 3 mg capsule 3 mg PO BID cholecalciferol (vitamin D3) [Vitamin D3] 25 mcg (1,000 unit) capsule 1,000 unit PO DAILY baclofen 20 mg tablet 20 mg PO BEDTIME hydroxyzine HCl 25 mg tablet 25 mg PO Q6H PRN (Reason: anxiety) lorazepam 0.5 mg tablet 0.25 mg PO Q12H PRN (Reason: anxiety) ondansetron HCl 4 mg tablet 4 mg PO Q8H PRN (Reason: nausea and vomiting) omeprazole 40 mg capsule,delayed release(DR/EC) 40 mg PO QAM brimonidine 0.2 % drops 1 drp OPHTHALMIC (EYE) TID timolol maleate 0.5 % drops 1 drp OPHTHALMIC (EYE) QAM melatonin 5 mg tablet 5 mg PO BEDTIME loperamide [Anti-Diarrheal (loperamide)] 2 mg capsule 2 mg PO Q6H PRN (Reason: loose stool) acetaminophen 325 mg capsule 650 mg PO Q6H PRN (Reason: pain) calcium carbonate [Tums] 320 mg calcium (750 mg) tablet,chewable 650 mg PO TID PRN (Reason: indigestion) carbidopa-levodopa [Sinemet] 25-100 mg tablet 1 tab PO DAILY@1800 Rx Instructions: at 1800 entacapone 200 mg tablet 200 mg PO QAM Rx Instructions: administer at the same time as l-dopa/carbidopa dose ibandronate 150 mg tablet 150 mg PO .[id number] Rx Instructions: on the th of the month carbidopa-levodopa 25-100 mg tablet 2 tab PO TID@0600,1000,1400 Rx Instructions: Take at 0600, 1000, and 1400. Avoid waking pt to give doses sertraline 100 mg tablet 150 mg PO DAILY carbidopa-levodopa 25-100 mg tablet extended release 1 tab PO QID@06,10,14,18 Rx Instructions: 0600,1000,1400,1800 Activity: resume usual activities as tolerated Diet: advance to your usual diet Print Language: Yemeni Forms: Portal Instructions
--- NOTE | 2024-09-28 11:37 | SWNOTE1 ---
Medicare Outpatient Observation Notice reviewed and discussed with patient's sister in law, Hetal. Pt's sister in law verbalized understanding and SW signed the form that it was reviewed. Original placed in pt's room and copy placed in patient?s chart.
--- NOTE | 2024-09-28 11:39 | SWNOTE1 ---
SW spoke to Hetal, sister in law, and she is alright with SW setting up safest transport possible. She voiced she is not strapped in if she goes by wheelchair and had concerns for her safety. SW to set up stretcher/ambulance, sister in law in agreement due to pt's decline.
[2024-09-28 12:00] VITALS: BP 122/69; PULSE 102; TEMP 36.6; O2SAT 92
[2024-09-28 12:11] VITALS: O2SAT 94
--- NOTE | 2024-09-28 13:12 | SWNOTE1 ---
SOILA called and set up stretcher transportation with [facility]. They will be here around 5:00. SOILA notified nurse. SOILA also let Ruth at [facility] know and called Hetal the sister as well. SOILA also called and spoke with nurse from [facility] and notified of time. Pt is returning to [facility] with [facility] coming in. SOILA faxed over dc med rec, H&P, and dc summary to [facility].
--- NOTE | 2024-09-28 15:20 | SWNOTE1 ---
SW received a call from [facility] and they are running late and new ETA is 5:40. SOILA called med [facility] pathology secretary/transcriptionist to update nurse.
[2024-09-28 15:27] LABS: Anion Gap 13.4; BUN Creatinine Ratio 31.9; Calcium 8.1 mg/dL (8.5-10.1); Carbon Dioxide 24.4 mmol/L (21.0-32.0); Chloride 110 mmol/L (98-107); Estimated GFR (African America >60 (>=60 mL/min/1.73m^2); Estimated GFR (Non-African Ame >60 (>=60 mL/min/1.73m^2); Glucose 100 mg/dL (74-106); Magnesium 2.3 mg/dL (1.8-2.4); Potassium 3.8 mmol/L (3.5-5.1); Sodium 144 mmol/L (136-145)
[2024-09-28] MEDS: CEFTRIAXONE 1,000 MG in 0.9 % SODIUM CHLORIDE 50 ML 100 MG IV (16:05)
== END 2024-09-28 17:24 | disposition hospice, home (50) ==
LOC: ER 19:19 → MS 19:55
PROVIDERS: Emergency Medicine; Registered Nurse; Admitting Provider Family Medicine; Emergency Provider Internal Medicine; PCP Family Medicine; Visit Provider Family Medicine
DX: N30.00 Acute cystitis without hematuria (principal); R41.82 Altered mental status, unspecified; E87.6 Hypokalemia; E83.42 Hypomagnesemia; Z66 Do not resuscitate; G20.B2 Parkinson's disease with dyskinesia, with fluctuations; E43 Unspecified severe protein-calorie malnutrition; Z68.1 Body mass index [BMI] 19.9 or less, adult; K52.9 Noninfective gastroenteritis and colitis, unspecified; F32.9 Major depressive disorder, single episode, unspecified; F41.9 Anxiety disorder, unspecified; G62.9 Polyneuropathy, unspecified; M81.0 Age-related osteoporosis without current pathological fracture; H40.9 Unspecified glaucoma; K21.9 Gastro-esophageal reflux disease without esophagitis; Z74.01 Bed confinement status; Z79.899 Other long term (current) drug therapy; Z88.8 Allergy status to other drugs, medicaments and biological substances
CPT/HCPCS: 36415; 80048; 80053; 81001; 83605; 83735; 85025; 87040; 87045; 87046; 87086; 87088; 87186; 87427; 87493; 94761; 96361; 96365; 96366; 96367; 96368; 99285; G0378; J0696; J3475; J3480